=== PATIENT | male | born 1955 | race Caucasian/White ===

== ENCOUNTER 2019-08-13 21:14 | Inpatient (IN) ==
[2019-08-13 21:51] LABS: Basophils % 0.4 % (0.1-2.0); Eosinophils # 0.2 K/mm3 (0.0-0.4); Eosinophils % 1.8 % (0.1-12.0); Hematocrit 40.7 % (42.0-52.0); Lymphocytes # 1.1 K/mm3 (0.7-4.5); Lymphocytes % 12.8 % (10-50); Mean Corpuscular HGB Conc 29.5 g/dL (31.8-35.4); Mean Corpuscular Volume 94.4 fl (80-94); Mean Platelet Volume 8.8 fl (7.4-10.4); Monocytes # 0.5 K/mm3 (0.1-1.0); Monocytes % 5.6 % (1.7-9.3); Neutrophils # 6.6 K/mm3 (1.8-7.8); Neutrophils % 79.5 % (37.0-80.0); Platelet Count 164 K/mm3 (142-424); Red Blood Count 4.31 M/mm3 (4.60-6.20); Red Cell Distribution Width 14.7 % (11.5-17.5); White Blood Count 8.3 K/mm3 (4.8-10.8)
[2019-08-13 22:08] LABS: Albumin Level 2.9 gm/dL (3.4-5.0); Albumin/Globulin Ratio 0.7 (1.1-1.8); Anion Gap 14.1 mEq/L (5-15); Bilirubin,Total 0.5 mg/dL (0.2-1.0); Calcium 8.2 mg/dL (8.5-10.1); Globulin 4.4 gm/dl (1.3-3.2); Total Protein,Serum 7.3 gm/dL (6.4-8.2)
--- NOTE | 2019-08-13 23:05 | Emergency Department Note ---
ED Disposition Clinical Impression: Non-STEMI (non-ST elevated myocardial infarction), IDDM (insulin dependent diabetes mellitus) Hypertension Qualifiers: Hypertension type: essential hypertension Qualified Code(s): I10 - Essential (primary) hypertension Disposition: Admitted As Inpatient Condition on Discharge: Good - Critical Care Critical Care Time: No Attestation: On 08/13/19, the high probability of a clinically significant, sudden or life threatening deterioration of the following system(s) required my full and direct attention, intervention and personal management. The time I documented below is in addition to time spent performing reported procedures but includes the following listed in this critical care notation. Medical Decision Making - Medical Records Medical records reviewed: Yes: I reviewed the patient's medical records. - Jose Inquiry Pt receiving controlled substance: No Vital Signs: 08/13/19 21:25 08/13/19 22:05 08/14/19 00:25 Temperature 98.0 F Temperature Source Oral Pulse Rate 77 Pulse Rate [Right Radial] 73 71 Respiratory Rate 18 18 Blood Pressure [Right Arm] 166/83 H 160/84 H Blood Pressure Mean [Right Arm] 110 109 Blood Pressure Source [Right Arm] Automatic Cuff Blood Pressure Position [Right Arm] Sitting 02 Sat by Pulse Oximetry 97 98 Oxygen Delivery Method Room Air Room Air 08/14/19 00:46 08/14/19 01:13 Temperature Temperature Source Pulse Rate Pulse Rate [Right Radial] 71 69 Respiratory Rate 18 18 Blood Pressure [Right Arm] 161/86 H 156/81 H Blood Pressure Mean [Right Arm] 111 106 Blood Pressure Source [Right Arm] Automatic Cuff Automatic Cuff Blood Pressure Position [Right Arm] Sitting Sitting 02 Sat by Pulse Oximetry 97 96 Oxygen Delivery Method Room Air Room Air - Lab Data Lab results reviewed: Yes: I reviewed the patient's lab results. Lab Results 08/13/19 21:39: WBC 8.3, RBC 4.31 L, Hgb 12.0 L, Hct 40.7 L, MCV 94.4 H, MCH 27.8, MCHC 29.5 L, RDW 14.7, Plt Count 164, MPV 8.8, Neut % (Auto) 79.5, Lymph % (Auto) 12.8, [place] % (Auto) 5.6, Eos % (Auto) 1.8, Baso % (Auto) 0.4, Neut # (A uto) 6.6, Lymph # (Auto) 1.1, [place] # (Auto) 0.5, Eos # (Auto) 0.2, Baso # (Auto) 0.0 08/13/19 21:39: Sodium 139, Potassium 4.1, Chloride 103, Carbon Dioxide 26, Anion Gap 14.1, BUN 10, Creatinine 0.96, Estimated Creat Clear 74, Estimated GFR 79, Est GFR ( Amer) 95, Glucose 237 H, Calcium 8.2 L, Total Bilirubin 0.5, AST 50 H, ALT 52, Alkaline Phosphatase 112, Troponin I 0.23 H, Total Protein 7.3, Albumin 2.9 L, Globulin 4.4 H, Albumin/Globulin Ratio 0.7 L 08/13/19 21:39: Lactate 1.8 08/14/19 00:05: Troponin I 0.69 H Result diagrams: 08/13/19 21:39 08/13/19 21:39 Orders (Tests/Meds): ED MEDICATIONS Generic Name Dose Route Start Last Admin Trade Name Freq PRN Reason Stop Dose Admin Sodium Chloride 3 ml 08/13/19 21:30 Sodium Chloride 3% 15ml [facility] 09/12/19 21:29 ONCE PRN INDUCE SPUTUM COLLECTION Discontinued Medications Generic Name Dose Route Start Last Admin Trade Name Freq PRN Reason Stop Dose Admin Albuterol/Ipratropium 3 ml 08/13/19 21:30 08/13/19 22:05 Duoneb 3ml [facility] 08/13/19 21:31 3 ml ONCE ONE Administration Ioversol 70 ml 08/13/19 23:26 08/13/19 23:27 Rad-Optiray 350 100ml Vial IV 08/13/19 23:27 70 ml ONCE ONE Administration Protocol Methylprednisolone Sodium Succinate 125 mg 08/13/19 21:29 08/13/19 21:47 Solu-Medrol 125mg/2ml Vial IV 08/13/19 21:30 125 mg ONCE ONE Administration Nitroglycerin 1 gm 08/14/19 01:21 08/14/19 01:31 Nitroglycerin 1 Inch Oint Udp TD 08/14/19 01:22 1 gm ONCE ONE Administration Sodium Chloride 40 ml 08/13/19 23:26 08/13/19 23:27 Rad-Ns 50ml Vial IV 08/13/19 23:27 40 ml ONCE ONE Administration Sodium Chloride 10 ml 10/12/19 23:26 08/13/19 23:27 Rad-Saline Flush 10ml Syringe IV 08/13/19 23:27 10 ml ONCE ONE Administration ORDERS Category Date Time Status CT Chest w/PE protocol [CT angio chest] Stat Cat Scan 08/13/19 21:[address] sinus wo con Stat Cat Scan 08/13/19 22:59 Taken XR chest 2V Stat Exams 08/13/19 21:29 Taken Blood Culture Stat Micro 08/13/19 21:39 Received Sputum Culture & Gram Stain Stat Micro 08/13/19 21:30 Ordered - Radiology Data #1 Image(s): Chest Image Reviewed: Yes I reviewed the patient's radiology image Preliminary Findings: Abnormal (perihilar changes ) - CT Data CT Scan: Chest, Sinus Time Received: 00:[address] Reviewed: Yes: I have viewed the radiologist's interpretation Preliminary Findings: Abnormal (see report/no pul emboli) - ECG Data Tracing #1 Normal Sinus Rhythm: Yes Ischemic changes: non-specific ST-T wave changes - PANKAJ Score for Non-Stemi Age of Patient: 60-69 years old Heart Rate: 70-89 bpm Systolic Blood Pressure: 160-199 mmHg Serum Creatinine: 0.80-1.19 mg/dl CHF [place] Class: I-No CHF Other Risk Factors: Elevated Cardiac Enzymes or Biomarkers Non-Stemi Risk Score: 98 Resp/SOB HPI - General Chief Complaint: Shortness of Breath/Dyspnea Stated Complaint: SOA Time Seen by Provider: 08/13/19 23:04 Mode of Arrival: Ambulatory Source of Information: Patient, Medical Record Limitations: No Limitations Description of Symptoms (Recalled from ER Triage Doc. by RN): pt states that he has been having difficulty breathing and a cough/sinus problems x 4 months. pt states that he has taken 4 antibiotics with no relief. pt states that today he started "coughing up blood." - History of Present Illness pt with hx of cad with stents in 1998 and is diabetic who presents with neck pain with pain with exertion and at rest - worse over the last few days - MD Complaint: shortness of breath Onset (ago): day(s) Severity: moderate Consistency/Duration: intermittent Known history of: diabetes Associated symptoms: denies other symptoms Treatment prior to arrival: none - Related Data Home oxygen amount: none Home Medications Medication Instructions Recorded Confirmed Aspirin [Aspirin 325mg Tab] 325 mg PO DAILY 04/21/19 08/14/19 Gabapentin 600 mg PO TID 04/21/19 08/14/19 Glimepiride 1 tab PO BID 04/21/19 08/14/19 Hydrocodone/Acetaminophen 1 tab PO BID PRN 04/21/19 08/14/19 [Hydrocodone-Acetamin 7.5-325] Insulin Glargine,Hum.rec.anlog 30 unit SQ BID 04/21/19 08/14/19 [Basaglar Tawnyikpen U-100] Lisinopril [Lisinopril 5mg 5 mg PO DAILY 04/21/19 08/14/19 Tablet] Metoprolol Tartrate 50 mg PO BID 04/21/19 08/14/19 Omeprazole 20 mg PO DAILY 04/21/19 08/14/19 Allergies Allergy/AdvReac Type Severity Reaction Status Date / Time No Known Allergies Allergy Verified 08/13/19 21:29 - Well's Criteria PE Score Clinical signs/symptoms of DVT: No PE is #1 diagnosis or equally likely: Yes Heart rate is > 100: No Immobile at least 3 days, or surgery in past 4 wks: No Previously, obj. diagnosed PE or DVT: No Hemoptysis: Yes Malignancy w/Rx within 6mo, or palliative: No PE Score: 4 [facility] History - Hepatitis A Screen Drug use history?: No High risk sexual behaviors?: No History of sexually transmitted infection?: No Currently employed?: No Childcare worker?: No Do you have indoor plumbing?: Yes Do you have electricity?: Yes Attestation statement:: This patient has been screened for Hepatitis A risk factors. I have reviewed the patient's past medical history: Yes Medical History: Reports:: Diabetes Mellitus Type 2 - Social History Smoking Status: Former smoker Alcohol Intake: never Occupational Status: employed ROS Obtained: Yes All systems reviewed & no additional complaints - Constitutional Constitutional: Denies fever(s) - Eyes Eyes: Denies change in vision - ENT Ears, Nose, Mouth, and Throat: Reports as per HPI, Denies sore throat - Cardiovascular Cardiovascular: Reports chest pain, Reports dyspnea - Respiratory Respiratory: Yes cough, Yes coughing up blood - Gastrointestinal Gastrointestingal: Denies: abdominal pain - Genitourinary Male Genitourinary: Denies hematuria - Musculoskeletal Musculoskeletal: Denies joint pain - Integumentary/Breasts Skin/Breast: Denies rash - Neurologic Neurologic: Denies seizure-like activity Physical Exam - General General appearance: alert - Head Head exam: normocephalic - Eye Eye exam: Present: PERRL, EOMI. Absent: scleral icterus - ENT ENT exam: Present: mucous membranes dry - Neck Neck exam: Present: trachea midline - Respiratory Respiratory exam: Present: normal lung sounds bilaterally. Absent: respiratory distress - Cardiovascular Cardiovascular exam: Present: regular rate, systolic murmur, +S4 - Abdominal Exam Abdominal exam: Present: soft - Extremities Exam Extremities exam: Absent: calf tenderness - Neurological Exam Neurological exam: Present: alert, oriented X3, CN II-XII intact - Psychiatric Psychiatric exam: Present: normal affect - Skin Skin exam: Absent: rash
[2019-08-14 06:03] LABS: Basophils % 0.2 % (0.1-2.0); Eosinophils % 0.1 % (0.1-12.0); Hematocrit 36.6 % (42.0-52.0); Hemoglobin 10.9 g/dL (14.1-18.0); Lymphocytes # 0.6 K/mm3 (0.7-4.5); Lymphocytes % 9.8 % (10-50); Mean Corpuscular HGB Conc 29.7 g/dL (31.8-35.4); Mean Corpuscular Volume 93.4 fl (80-94); Mean Platelet Volume 8.8 fl (7.4-10.4); Monocytes # 0.1 K/mm3 (0.1-1.0); Monocytes % 2.2 % (1.7-9.3); Neutrophils # 5.5 K/mm3 (1.8-7.8); Neutrophils % 87.8 % (37.0-80.0); Platelet Count 149 K/mm3 (142-424); Red Blood Count 3.92 M/mm3 (4.60-6.20); Red Cell Distribution Width 14.6 % (11.5-17.5); White Blood Count 6.2 K/mm3 (4.8-10.8)
[2019-08-14 06:10] LABS: INR 1.16 (0.9-1.1)
[2019-08-14 06:24] LABS: Hypochromasia 1+; Lymphocytes % 8 % (10-50); Neutrophils % 86 % (42-76); Total Cells Counted 100
[2019-08-14 06:42] LABS: Anion Gap 17.4 mEq/L (5-15); Calcium 7.8 mg/dL (8.5-10.1); Chol/HDL Ratio 6.8 (1-3.5)
--- NOTE | 2019-08-14 08:46 | History & Physical Report ---
*Admission Date: 08/13/19 *Chief complaint: sob *History of present illness: this wm presented to the ed with episodes of neck pain which are most noted with exertion and also at rest - has iddm and hx of cad with stents in past - pt has been treated for bronchitis with no change in sx - he was noted to have nonspec ekg changes and pos enz in the ed - pt was admitted for eval [facility] History I have reviewed the patient's past medical history: Yes Medical History: Reports:: Diabetes Mellitus Type 2, Hyperlipidemia, Myocardial Infarction *Have you ever received a pneumonia vaccine?: No *Have you received a flu vaccine this season?: No Other Medical History: Reports: Cataracts Other Surgeries: Yes: Coronary Stent (3 STENTS PLACED IN 1998) - *Social History Educational Level: Attended High School Smoking Status: Former smoker Tobacco Type: cigarettes # Packs/Day (cigarettes): 4 Alcohol Intake: former Alcohol Intake Frequency:: a few times a week *Occupational Status:: employed Housing: house *Travel in the last 8 weeks: None Family Hx:: Cancer, Coronary Artery Disease, Diabetes, Heart Attack, Hyperlipidemia, Hypertension Review of Systems - Review of Systems Review of systems:: pertinent systems reviewed and negative unless documented below - Constitutional Denies fever(s) - Eyes Denies change in vision - ENT Denies sore throat - *Cardiovascular Reports other (neck pain ), Denies chest pain at rest - *Respiratory Denies cough - *Gastrointestinal Denies abdominal pain - *Genitourinary Denies blood in urine - *Musculoskeletal Denies joint pain - Integumentary/Breasts Denies rash - *Neurologic Denies localized weakness, Denies seizure-like activity - Psychiatric Denies anxiety Meds Home Medications Medication Instructions Recorded Confirmed Type Aspirin [Aspirin 325mg Tab] 325 mg PO DAILY 04/21/19 08/14/19 History Gabapentin 600 mg PO TID 04/21/19 08/14/19 History Glimepiride 1 tab PO BID 04/21/19 08/14/19 History Hydrocodone/Acetaminophen 1 tab PO BID PRN 04/21/19 08/14/19 History [Hydrocodone-Acetamin 7.5-325] Insulin Glargine,Hum.rec.anlog 40 unit SQ BID 04/21/19 08/14/19 History [Basaglar Kwikpen U-100] Lisinopril [Lisinopril 5mg 5 mg PO DAILY 04/21/19 08/14/19 History Tablet] Metoprolol Tartrate 50 mg PO BID 04/21/19 08/14/19 History Omeprazole 20 mg PO DAILY 04/21/19 08/14/19 History Allergies Allergy/AdvReac Type Severity Reaction Status Date / Time No Known Allergies Allergy Verified 08/13/19 21:29 Exam Vital signs and Labs for Last 24 Hours: Temp Pulse Resp BP Pulse Ox 98.0 F 78 17 135/71 98 08/14/19 07:43 08/14/19 07:43 08/14/19 07:43 08/14/19 07:43 08/14/19 07:43 Laboratory Results - last 24 hr 08/13/19 21:39: WBC 8.3, RBC 4.31 L, Hgb 12.0 L, Hct 40.7 L, MCV 94.4 H, MCH 27.8, MCHC 29.5 L, RDW 14.7, Plt Count 164, MPV 8.8, Neut % (Auto) 79.5, Lymph % (Auto) 12.8, [place] % (Auto) 5.6, Eos % (Auto) 1.8, Baso % (Auto) 0.4, Neut # (Auto) 6.6, Lymph # (Auto) 1.1, [place] # (Auto) 0.5, Eos # (Auto) 0.2, Baso # (Auto) 0.0 08/13/19 21:39: Sodium 139, Potassium 4.1, Chloride 103, Carbon Dioxide 26, Anion Gap 14.1, BUN 10, Creatinine 0.96, Estimated Creat Clear 74, Estimated GFR 79, Est GFR ( Amer) 95, Glucose 237 H, Calcium 8.2 L, Total Bilirubin 0.5, AST 50 H, ALT 52, Alkaline Phosphatase 112, Troponin I 0.23 H, Total Protein 7.3, Albumin 2.9 L, Globulin 4.4 H, Albumin/Globulin Ratio 0.7 L 08/13/19 21:39: Lactate 1.8 08/14/19 00:05: Troponin I 0.69 H 08/14/19 05:45: WBC 6.2 D, RBC 3.92 L, Hgb 10.9 L, Hct 36.6 L, MCV 93.4, MCH 27.8, MCHC 29.7 L, RDW 14.6, Plt Count 149, MPV 8.8, Neut % (Auto) 87.8 H, Lymph % (Auto) 9.8 L, [place] % (Auto) 2.2, Eos % (Auto) 0.1, Baso % (Auto) 0.2, Neut # (Auto) 5.5, Lymph # (Auto) 0.6 L, [place] # (Auto) 0.1, Eos # (Auto) 0.0, Baso # (Auto) 0.0, Total Counted 100, Neutrophils % (Manual) 86 H, Band Neutrophils % 6.0, Lymphocytes % (Manual) 8 L, Platelet Estimate Normal, Hypochromasia 1+ 08/14/19 05:45: PT 12.0 H, INR 1.16 H 08/14/19 05:45: Sodium 140, Potassium 4.4, Chloride 104, Carbon Dioxide 23, Anion Gap 17.4 H, BUN 12, Creatinine 1.07, Estimated Creat Clear 80, Estimated GFR 69, Est GFR ( Amer) 84, Glucose 265 H, Calcium 7.8 L, Magnesium 0.8 L , Troponin I 0.80 H, Triglycerides 65, Cholesterol 197, LDL Cholesterol 155 H, VLDL Cholesterol 13, HDL Cholesterol 29, Cholesterol/HDL Ratio 6.8 H 08/14/19 06:23: POC Glucose 247 H I & O for Last 24 hours: Intake & Output 08/11/19 08/12/19 08/13/19 08/14/19 11:59 11:59 11:59 11:59 Intake Total 239 / 239 Output Total 350 / 350 Balance -111 / -111 Weight 182 lb 3 oz - Constitutional no acute distress - *Routine HEENT Exam Head: Present: normocephalic Eye: Present: EOMI, PERRL ENT: Present: mucous membranes dry - *Routine Neck Exam Present: supple. Absent: JVD - *Routine Respiratory Exam Present: CTA bilaterally - *Routine Cardiovascular Exam Present: RRR, murmur - *Routine Abdominal Exam Present: soft - *Routine Extremities Exam Absent: calf tenderness - *Routine Skin Exam Present: intact - *Routine Neurological Exam Present: alert, oriented X3, CN II-XII intact - Routine Psychiatric Exam Present: normal affect Assessment and Plan (1) Non-STEMI (non-ST elevated myocardial infarction) Current visit: Yes Status: Acute Category: Medical Code(s): I21.4 - Non-ST elevation (NSTEMI) myocardial infarction (2) IDDM (insulin dependent diabetes mellitus) Current visit: Yes Status: Acute Category: Medical Code(s): E11.9 - Type 2 diabetes mellitus without complications; Z79.4 - long-term (current) use of insulin (3) Hypertension Current visit: Yes Status: Acute Qualifiers: Hypertension type: essential hypertension Qualified Code(s): I10 - Essential (primary) hypertension Category: Medical Code(s): I10 - Essential (primary) hypertension (4) Hyperlipidemia Current visit: Yes Status: Acute Qualifiers: Hyperlipidemia type: unspecified Qualified Code(s): E78.5 - Hyperlipidemia, unspecified Category: Medical Code(s): E78.5 - Hyperlipidemia, unspecified
--- NOTE | 2019-08-14 12:33 | Pharmacy Consult Notes ---
[facility] Pharmacy VTE Monitoring - Patient Demographics Admission date: 08/14/19 Report Date: 08/14/19 Time: 12:33 Allergies/Adverse Reactions: Patient Allergies No Known Allergies Allergy (Verified 08/13/19 21:29) Height: 1.75 m Weight: 82.639 kg Patient Problems: Current Active Problems Non-STEMI (non-ST elevated myocardial infarction) (Acute) IDDM (insulin dependent diabetes mellitus) (Acute) Hypertension (Acute) Hyperlipidemia (Acute) - VTE Risk Labs: VTE Related Lab Results Hgb 10.9 g/dL (14.1-18.0) L 08/14/19 05:45 Hct 36.6 % (42.0-52.0) L 08/14/19 05:45 Plt Count 149 K/mm3 (142-424) 08/14/19 05:45 PT 12.0 seconds (9.4-11.8) H 08/14/19 05:45 INR 1.16 (0.9-1.1) H 08/14/19 05:45 BUN 12 mg/dL (7-18) 08/14/19 05:45 Creatinine 1.07 mg/dL (0.70-1.30) 08/14/19 05:45 Estimated Creat Clear 80 mL/min (50-200) 08/14/19 05:45 VTE Score: 4 VTE Risk Level: Low Risk - Prophylaxis VTE Prophylaxis Ordered?: Yes Types of VTE Prophylaxis: TEDS Knee High Location of Applied Device: Bilateral Lower Extremeties
--- NOTE | 2019-08-15 07:37 | Consult Report ---
History of Present Illness Consult date: 08/15/19 Requesting physician: Sergey Bobo Consult reason: chest pain Chief complaint: chest pain Additional Medical History:: 1. Diabetes mellitus, type II, treated for about 5 years A. Insulin treated for about 2 years B. 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 Remote history of tobacco use, discontinued 1998 3. Coronary artery disease A. Myocardial infarction with subsequent coronary stenting x3, 1998, [facility] B. NSTEMI, 08/2019, with rate related IVCD 4. Hypertension 5. Hyperlipidemia History of present illness: 64-year-old white male with insulin-dependent diabetes mellitus and known coronary artery disease with previous [place] and coronary stenting in 1998 presented to the emergency department for substernal and neck discomfort that was unresolved with rest. Transported to ER by private vehicle. Patient was evaluated with initial troponin elevated but EKG with no acute ST segment changes. Patient was diagnosed with non-ST elevation [place] and admitted for further evaluation. Symptoms resolved overnight. Patient relates same symptoms with exertion that have resolved with rest over the last 4 months. On the day of admission symptoms onset it would not go away. [facility] History Medical History: Reports:: Diabetes Mellitus Type 2, Hyperlipidemia, Myocardial Infarction *Have you ever received a pneumonia vaccine?: No *Have you received a flu vaccine this season?: No Other Medical History: Reports: Cataracts Other Surgeries: Yes: Coronary Stent (3 STENTS PLACED IN 1998) - *Social History Educational Level: Attended High School Smoking Status: Former smoker Tobacco Type: cigarettes # Packs/Day (cigarettes): 4 Alcohol Intake: former Alcohol Intake Frequency:: a few times a week *Occupational Status:: employed Housing: house *Travel in the last 8 weeks: None Family Hx:: Cancer, Coronary Artery Disease, Diabetes, Heart Attack, Hyperlipidemia, Hypertension Meds Home Medications Medication Instructions Recorded Confirmed Type Aspirin [Aspirin 325mg Tab] 325 mg PO DAILY 04/21/19 08/14/19 History Gabapentin 600 mg PO TID 04/21/19 08/14/19 History Glimepiride 1 tab PO BID 04/21/19 08/14/19 History Hydrocodone/Acetaminophen 1 tab PO BID PRN 04/21/19 08/14/19 History [Hydrocodone-Acetamin 7.5-325] Insulin Glargine,Hum.rec.anlog 40 unit SQ BID 04/21/19 08/14/19 History [Franc Starr U-100] Lisinopril [Lisinopril 5mg 5 mg PO DAILY 04/21/19 08/14/19 History Tablet] Metoprolol Tartrate 50 mg PO BID 04/21/19 08/14/19 History Omeprazole 20 mg PO BID 04/21/19 08/14/19 History Cetirizine HCl 10 mg PO DAILY 08/14/19 08/14/19 History Metformin HCl [Metformin 1000mg 1,000 mg PO BID 08/14/19 08/14/19 History Tablets] Allergies Allergy/AdvReac Type Severity Reaction Status Date / Time No Known Allergies Allergy Verified 08/13/19 21:29 Review of Systems - *Cardiovascular Reports chest pain, Denies shortness of breath - *Respiratory Reports shortness of breath with activity, Denies cough, Denies shortness of breath - *Gastrointestinal Denies loose stools, Denies nausea, Denies vomiting - *Genitourinary Denies blood in urine - *Musculoskeletal Denies joint pain, Denies back pain - *Neurologic Denies localized weakness, Denies seizure-like activity Exam Vital signs and Labs for Last 24 Hours: Temp Pulse Resp BP Pulse Ox 97.9 F 66 16 119/62 97 08/15/19 04:00 08/15/19 04:00 08/15/19 04:00 08/15/19 04:00 08/15/19 04:00 Laboratory Results - last 24 hr 08/14/19 10:55: POC Glucose 362 H* 08/14/19 16:37: POC Glucose 259 H 08/14/19 20:23: POC Glucose 283 H 08/15/19 05:46: POC Glucose 212 H I & O for Last 24 hours: Intake & Output 08/12/19 08/13/19 08/14/19 08/15/19 11:59 11:59 11:59 11:59 Intake Total 239 / 239 1669 / 1669 Output Total 700 / 700 900 / 900 Balance -461 / -461 769 / 769 Weight 182 lb 3 oz 182 lb 3.005 oz - *Routine HEENT Exam Head: Present: normocephalic Eye: Present: EOMI, PERRL ENT: Present: mucous membranes moist - *Routine Neck Exam Present: supple. Absent: JVD, carotid bruit - *Routine Respiratory Exam Present: wheezes. Absent: accessory muscle use, rales, rhonchi - *Routine Cardiovascular Exam Present: RRR. Absent: murmur, gallop, rubs - *Routine Abdominal Exam Present: soft. Absent: tenderness, distended, guarding - *Routine Extremities Exam Present: edema. 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 Recurrent chest pain with exertion in a patient with known coronary artery disease and insulin-dependent diabetes mellitus. Positive enzymes with no acute ST segment changes on EKG, consistent with non-ST elevation [place]. Patient will need left heart catheterization. Risks, benefits and procedure explained to the patient who agrees to proceed. Continue aspirin and Brilinta, KIMBERLY inhibitor, metoprolol along with statin. 2. Echocardiogram today preliminary shows preserved ejection fraction. 3. Further recommendations to follow pending above results. 4. Rate related IVCD/LBBB pattern
--- NOTE | 2019-08-15 13:17 | Discharge Summary ---
General - General Admission date:: 08/14/19 Discharge date: 08/15/19 HPI HPI: this wm presented to the ed with episodes of neck pain which are most noted with exertion and also at rest - has iddm and hx of cad with stents in past - pt has been treated for bronchitis with no change in sx - he was noted to have nonspec ekg changes and pos enz in the ed - pt was admitted for eval Hospital Course Hospital Course: pt was seen in the ed with neck pain which was anginal in nature and had abn troponin - he was seen by card - 1. Diabetes mellitus, type II, treated for about 5 years A. Insulin treated for about 2 years B. 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 Remote history of tobacco use, discontinued 1998 3. Coronary artery disease A. Myocardial infarction with subsequent coronary stenting x3, 1998, [facility] B. NSTEMI, 08/2019, with rate related IVCD 4. Hypertension 5. Hyperlipidemia 64-year-old white male with insulin-dependent diabetes mellitus and known coronary artery disease with previous RI and coronary stenting in 1998 presented to the emergency department for substernal and neck discomfort that was unresolved with rest. Transported to ER by private vehicle. Patient was evaluated with initial troponin elevated but EKG with no acute ST segment changes. Patient was diagnosed with non-ST elevation RI and admitted for further evaluation. Symptoms resolved overnight. Patient relates same symptoms with exertion that have resolved with rest over the last 4 months. On the day of admission symptoms onset it would not go away. Recurrent chest pain with exertion in a patient with known coronary artery disease and insulin-dependent diabetes mellitus. Positive enzymes with no acute ST segment changes on EKG, consistent with non-ST elevation RI. Patient will need left heart catheterization. Risks, benefits and procedure explained to the patient who agrees to proceed. Continue aspirin and Brilinta, KIMBERLY inhibitor, metoprolol along with statin. 2. Echocardiogram today preliminary shows preserved ejection fraction. 3. Further recommendations to follow pending above results. 4. Rate related IVCD/LBBB patten pt was stable and had heart cathhe left main artery Has an ostial 20% stenosis and a distal 60% stenosis The left anterior descending artery Has an ostial 70% stenosis followed by a proximal eccentric 50% stenosis followed by mid vessel 70 to 80% stenosis. The circumflex artery Gives rise to a medium sized ramus intermedius which is free of disease. The first obtuse marginal artery is a small to medium 1.5 mm vessel and has a proximal 90% stenosis The right coronary artery Is a dominant vessel and has stents throughout the proximal mid and distal segment. There is severe 90% in-stent restenosis followed by additional mid vessel 80% complex diffuse in-stent restenosis. A large posterior descending artery has a proximal 80% eccentric stenosis. 2 additional marginal branches are present. The posterior lateral has a 70% and a 1.5 mm vessel. The VALENZUELA ventriculogram reveals Normal 65% The left ventricular end-diastolic pressure 20 mmHg IMPRESSION Severe three-vessel coronary artery disease as described above Normal ejection fraction Mildly elevated LVEDP PLAN 1. Patient requires surgical revascularization 2. Aggressive risk factor modification 3. Avoidance of tobacco products 4. Transfer to [facility] for coronary artery bypass grafting this admission pt will be transferred to for cabg Objective Vital signs: Temp Pulse Resp BP Pulse Ox 98 F 61 20 124/69 96 08/15/19 12:58 08/15/19 12:58 08/15/19 12:58 08/15/19 12:58 08/15/19 12:58 no acute distress - *Routine HEENT Exam Head: Present: normocephalic Eye: Present: EOMI, PERRL ENT: Present: mucous membranes dry - *Routine Neck Exam Present: supple - *Routine Respiratory Exam Present: CTA bilaterally - *Routine Cardiovascular Exam Present: RRR, murmur - *Routine Abdominal Exam Present: soft - *Routine Extremities Exam Present: full ROM - *Routine Skin Exam Present: intact - *Routine Neurological Exam Present: alert, oriented X3, CN II-XII intact - Routine Psychiatric Exam Present: normal affect Results Labs on day of discharge: Labs from last 24 hours 08/15/19 08/15/19 08/14/19 11:37 05:46 20:23 POC Glucose 130 H 212 H 283 H 08/14/19 16:37 POC Glucose 259 H DS: Diagnosis - Discharge Diagnosis (1) Non-STEMI (non-ST elevated myocardial infarction) Status: Acute (2) IDDM (insulin dependent diabetes mellitus) Status: Acute (3) Hypertension Status: Acute (4) Hyperlipidemia Status: Acute (5) CAD, multiple vessel Status: Acute Discharge Plan - Patient Discharge Instructions ACTIVITY: Continue current activity DIET: continue same diet - Follow up Plan Disposition: Xfer Short-Term Hosp Prescriptions/Medication Reconciliation: Discontinued Hydrocodone/Acetaminophen [Hydrocodone-Acetamin 7.5-325] 1 tab PO BID PRN PRN Reason: PAIN Glimepiride 1 tab PO BID Lisinopril [Lisinopril 5mg Tablet] 5 mg PO DAILY Omeprazole 20 mg PO BID Aspirin [Aspirin 325mg Tab] 325 mg PO DAILY Insulin Glargine,Hum.rec.anlog [Franc Starr U-100] 40 unit SQ BID Metformin HCl [Metformin 1000mg Tablets] 1,000 mg PO BID Cetirizine HCl 10 mg PO DAILY Gabapentin 600 mg PO TID Metoprolol Tartrate 50 mg PO BID - Problem Reconciliation Problems Reviewed?: Yes
--- NOTE | 2019-08-15 17:27 | Electrocardiograph Report ---
APPROVED REPORT Exam: Resting ECG HR:78 bpm ECG Measurements Heart Rate 78 AXES MS 182 P 33 QRSd 90 QRS 78 QT 404 T-82 QTc 460 <Conclusion> Normal sinus rhythm ST & T wave abnormality, consider lateral ischemia Prolonged QT Abnormal ECG Electronically signed by : Suresh Caruso, 08/15/2019 17:26:41
--- NOTE | 2019-08-15 17:29 | Electrocardiograph Report ---
APPROVED REPORT Exam: Resting ECG HR:68 bpm ECG Measurements Heart Rate 68 AXES OR 156 P QRSd 82 QRS 78 QT 388 T-44 QTc 412 <Conclusion> Normal sinus rhythm ST & T wave abnormality, consider Inferolateral ischemia Abnormal ECG Electronically signed by : Suresh Caruso, 08/15/2019 17:28:44
--- NOTE | 2019-08-15 21:15 | Cardiology Report ---
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 93.30 (40-130 cm/s)MV A Velocity 32.10 (40-130 cm/s) E/A Ratio 2.90 Pulmonary Valve PA Accel Time 155.00 (>120 msec) Tricuspid Valve TR P. Nvcfadci107.00 cm/sRAP Estimate 10.00 mmHg RVSP 40.00 mmHg Left Ventricle Left atrium is mildly enlarged, left ventricle is normal size, mild concentric left ventricular hypertrophy, visually estimated ejection fraction 50%, there is moderate hypokinesis involving the inferior basal wall. Diastolic parameters are inconclusive. Right Ventricle Right atrium and right ventricular mildly enlarged with normal contractility. Aortic Valve Aortic valve is thickened and calcified, leaflet continue to display good mobility, there is no aortic stenosis or aortic insufficiency. Mitral Valve Mitral valve leaflets are minimally thickened, there is no mitral stenosis, there is moderate mitral regurgitation. Tricuspid Valve Tricuspid valve is grossly normal, there is mild tricuspid regurgitation, calculated right ventricular systolic pressure is 45 mmHg which is moderately elevated. Pulmonic Valve Pulmonic valve is poorly visualized. Great Vessels Aortic root is normal size. Pericardium No significant pericardial effusion. Conclusion 1. Mildly enlarged left atrium, normal left ventricular size, mild concentric left ventricular hypertrophy, visually estimated ejection fraction of 50% with segmental wall motion abnormality described above, diastolic parameters are inconclusive. 2. Thickened and calcified aortic valve without aortic stenosis aortic insufficiency. 3. Mildly enlarged right ventricle with normal contractility. 4. Moderate mitral and mild tricuspid regurgitation, calculated right ventricular systolic pressure is 45 mmHg consistent with moderately elevated right ventricular systolic pressure. 5. No significant pericardial effusion noted. Electronically signed by : Jose Ramon Keenan, 08/15/2019 21:15:41
[2019-08-16 07:18] LABS: Basophils % 0.4 % (0.1-2.0); Eosinophils # 0.2 K/mm3 (0.0-0.4); Eosinophils % 2.9 % (0.1-12.0); Hematocrit 36.9 % (42.0-52.0); Lymphocytes # 1.4 K/mm3 (0.7-4.5); Lymphocytes % 19.1 % (10-50); Mean Corpuscular HGB Conc 29.7 g/dL (31.8-35.4); Mean Corpuscular Volume 93.1 fl (80-94); Mean Platelet Volume 8.8 fl (7.4-10.4); Monocytes # 0.5 K/mm3 (0.1-1.0); Monocytes % 6.6 % (1.7-9.3); Neutrophils # 5.1 K/mm3 (1.8-7.8); Neutrophils % 70.9 % (37.0-80.0); Platelet Count 166 K/mm3 (142-424); Red Blood Count 3.96 M/mm3 (4.60-6.20); Red Cell Distribution Width 14.7 % (11.5-17.5); White Blood Count 7.2 K/mm3 (4.8-10.8)
[2019-08-16 07:26] LABS: Anion Gap 11.4 mEq/L (5-15); Calcium 8.2 mg/dL (8.5-10.1)
--- NOTE | 2019-08-16 08:12 | Progress Note ---
Subjective Date: 08/16/19 Time: 08:09 Principal diagnosis: NSTEMI Interval history: 64-year-old white male in bedside chair in no acute distress. Denies any chest pain, pressure tightness overnight. Waiting for transfer to for coronary artery bypass grafting. Exam Vital signs and Labs for Last 24 Hours: Temp Pulse Resp BP Pulse Ox 97.8 F 68 17 147/80 H 97 08/16/19 04:00 08/16/19 04:00 08/16/19 04:00 08/16/19 04:00 08/16/19 04:00 Laboratory Results - last 24 hr 08/15/19 11:37: POC Glucose 130 H 08/15/19 20:07: POC Glucose 308 H* 08/16/19 05:59: POC Glucose 233 H 08/16/19 06:15: WBC 7.2, RBC 3.96 L, Hgb 11.0 L, Hct 36.9 L, MCV 93.1, MCH 27.7, MCHC 29.7 L, RDW 14.7, Plt Count 166, MPV 8.8, Neut % (Auto) 70.9, Lymph % (Auto) 19.1, [place] % (Auto) 6.6, Eos % (Auto) 2.9, Baso % (Auto) 0.4, Neut # (Auto) 5.1, Lymph # (Auto) 1.4, [place] # (Auto) 0.5, Eos # (Auto) 0.2, Baso # (Auto) 0.0 08/16/19 06:15: Sodium 139, Potassium 4.4, Chloride 106, Carbon Dioxide 26, Anion Gap 11.4, BUN 19 H D, Creatinine 0.87, Estimated Creat Clear 90, Estimated GFR 88, Est GFR ( Amer) 107 D, Glucose 241 H, Calcium 8.2 L I & O for Last 24 hours: Intake & Output 08/13/19 08/14/19 08/15/19 08/16/19 11:59 11:59 11:59 11:59 Intake Total 239 / 239 2028 480 / 480 Output Total 700 / 700 900 / 900 2550 / 2550 Balance -461 / -461 1129 / 1129 -2069 / -2069 Weight 182 lb 3 oz 182 lb 3.005 oz 191 lb 3.005 oz Microbiology Reports for the Last 24 Hours: Microbiology 08/13/19 21:39 Blood Blood Culture - Preliminary NO GROWTH AFTER 48 HOURS 08/13/19 21:39 Blood Blood Culture - Preliminary NO GROWTH AFTER 48 HOURS - *Routine HEENT Exam Head: Present: normocephalic Eye: Present: EOMI, PERRL ENT: Present: mucous membranes moist - *Routine Respiratory Exam Present: CTA bilaterally. Absent: accessory muscle use, rales, rhonchi, wheezes - *Routine Cardiovascular Exam Present: RRR. Absent: murmur, gallop, rubs - *Routine Extremities Exam Absent: edema, calf tenderness - *Routine Neurological Exam Present: alert, oriented X3, moving all extremities Progress Note: A&P (1) Non-STEMI (non-ST elevated myocardial infarction) Status: Acute Current Visit: Yes (2) IDDM (insulin dependent diabetes mellitus) Status: Acute Current Visit: Yes (3) Hypertension Status: Acute Current Visit: Yes (4) Hyperlipidemia Status: Acute Current Visit: Yes (5) CAD, multiple vessel Status: Acute Current Visit: Yes Assessment and Plan for All Diagnoses:: 1. Transfer to for bypass pending at this time. 2. We will discontinue Brilinta 3. Continue aspirin, statin, lisinopril and metoprolol.
--- NOTE | 2019-08-16 08:52 | Progress Note ---
Internal Medicine - PN: Subj *Date: 08/16/19 *Time: 08:45 Interval history: no changes over night waiting for bed at . Exam Vital signs and Labs for Last 24 Hours: Temp Pulse Resp BP Pulse Ox 97.8 F 68 17 147/80 H 97 08/16/19 04:00 08/16/19 04:00 08/16/19 04:00 08/16/19 04:00 08/16/19 04:00 Laboratory Results - last 24 hr 08/15/19 11:37: POC Glucose 130 H 08/15/19 20:07: POC Glucose 308 H* 08/16/19 05:59: POC Glucose 233 H 08/16/19 06:15: WBC 7.2, RBC 3.96 L, Hgb 11.0 L, Hct 36.9 L, MCV 93.1, MCH 27.7, MCHC 29.7 L, RDW 14.7, Plt Count 166, MPV 8.8, Neut % (Auto) 70.9, Lymph % (Auto) 19.1, [place] % (Auto) 6.6, Eos % (Auto) 2.9, Baso % (Auto) 0.4, Neut # (Auto) 5.1, Lymph # (Auto) 1.4, [place] # (Auto) 0.5, Eos # (Auto) 0.2, Baso # (Auto) 0.0 08/16/19 06:15: Sodium 139, Potassium 4.4, Chloride 106, Carbon Dioxide 26, Anion Gap 11.4, BUN 19 H D, Creatinine 0.87, Estimated Creat Clear 90, Estimated GFR 88, Est GFR ( Amer) 107 D, Glucose 241 H, Calcium 8.2 L I & O for Last 24 hours: Intake & Output 08/13/19 08/14/19 08/15/19 08/16/19 11:59 11:59 11:59 11:59 Intake Total 239 / 239 2028 / 2028 1380 / 1380 Output Total 700 / 700 900 / 900 2550 / 2550 Balance -461 / -461 1129 / 1129 -1170 / -1170 Weight 182 lb 3 oz 182 lb 3.005 oz 191 lb 3.005 oz Microbiology Reports for the Last 24 Hours: Microbiology 08/13/19 21:39 Blood Blood Culture - Preliminary NO GROWTH AFTER 48 HOURS 08/13/19 21:39 Blood Blood Culture - Preliminary NO GROWTH AFTER 48 HOURS - Constitutional no acute distress - *Routine HEENT Exam Head: Present: normocephalic Eye: Present: PERRL ENT: Present: mucous membranes moist - *Routine Neck Exam Present: supple. Absent: lymphadenopathy - *Routine Respiratory Exam Present: CTA bilaterally - *Routine Cardiovascular Exam Present: RRR - *Routine Abdominal Exam Present: soft, normoactive bowel sounds. Absent: tenderness - *Routine Extremities Exam Present: full ROM, pulses intact. Absent: cyanosis, clubbing, edema - *Routine Skin Exam Present: intact, warm. 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 (3) Hypertension Current visit: Yes Status: Acute Qualifiers: Hypertension type: essential hypertension Qualified Code(s): I10 - Essential (primary) hypertension Category: Medical Code(s): I10 - Essential (primary) hypertension (4) Hyperlipidemia Current visit: Yes Status: Acute Qualifiers: Hyperlipidemia type: unspecified Qualified Code(s): E78.5 - Hyperlipidemia, unspecified Category: Medical Code(s): E78.5 - Hyperlipidemia, unspecified (5) CAD, multiple vessel Current visit: Yes Status: Acute Category: Medical Code(s): I25.10 - Atherosclerotic heart disease of [place] coronary artery without angina pectoris - Assessment and plan all Dx Assessment and Plan for all problems:: Rounded with Dr. Bobo all orders per Jihan Waiting for bed at
--- NOTE | 2019-08-16 16:28 | Electrocardiograph Report ---
APPROVED REPORT Exam: Resting ECG HR:81 bpm ECG Measurements Heart Rate 81 AXES QRSd 156 QRS 65 QT 452 T244 QTc 525 <Conclusion> Sinus Rhythm LBBB Abnormal ECG Electronically signed by : Suresh Caruso, 08/16/2019 16:28:20
--- NOTE | 2019-08-17 11:05 | Progress Note ---
Subjective Date: 08/17/19 Time: 11:01 Principal diagnosis: NSTEMI Interval history: This is a 64-year-old gentleman who is awaiting transfer to [facility] for coronary artery bypass grafting. This morning he states he feels good. He states he still having a little pain in his lower back from lying in the bed. He denies any chest pain, pressure, shortness of breath or edema. He denies any fevers, chills, nausea, vomiting, diarrhea, PND or orthopnea. Exam Vital signs and Labs for Last 24 Hours: Temp Pulse Resp BP Pulse Ox 98.4 F 72 18 153/66 H 100 08/17/19 08:00 08/17/19 08:00 08/17/19 08:00 08/17/19 08:00 08/17/19 08:00 Laboratory Results - last 24 hr 08/16/19 11:36: POC Glucose 357 H* 08/16/19 16:12: POC Glucose 248 H 08/16/19 20:24: POC Glucose 297 H 08/17/19 05:20: POC Glucose 256 H I & O for Last 24 hours: Intake & Output 08/14/19 08/15/19 08/16/19 08/17/19 23:59 23:59 23:59 23:59 Intake Total 1758 / 1908 990 / 990 2340 / 2340 2623 / 2623 Output Total 1600 / 1600 2200 / 2200 1850 / 1850 1700 / 1700 Balance 158 / 308 -1210 / -1210 490 / 490 923 / 923 Weight 182 lb 3 oz 182 lb 3.005 oz 191 lb 3.005 oz 191 lb 3.005 oz Microbiology Reports for the Last 24 Hours: Microbiology 08/16/19 08:00 Sputum - Expectorated Sputum Gram Stain - Final 08/16/19 08:00 Sputum - Expectorated Sputum Sputum Culture - Preliminary Narrative: Telemetry strip shows sinus rhythm with a rate of 70. - Constitutional no acute distress, average body habitus - *Routine HEENT Exam Head: Present: normocephalic, atraumatic Eye: Present: EOMI, PERRL ENT: Present: mucous membranes moist - *Routine Neck Exam Present: supple, full ROM, normal carotid upstroke. Absent: JVD, carotid bruit, lymphadenopathy - *Routine Respiratory Exam Present: CTA bilaterally - *Routine Cardiovascular Exam Present: RRR, Normal S1, Normal S2. Absent: murmur - *Routine Abdominal Exam Present: soft, normoactive bowel sounds. Absent: tenderness, distended - *Routine Extremities Exam Present: full ROM, pulses intact, normal capillary refill. Absent: cyanosis, clubbing, edema - *Routine Skin Exam Present: intact, warm. Absent: erythema, rash - *Routine Neurological Exam Present: alert, oriented X3, CN II-XII intact. Absent: sensory deficit, motor deficit - Detailed Eye Exam Eyelids: Left normal inspection Progress Note: A&P (1) Non-STEMI (non-ST elevated myocardial infarction) Status: Acute Current Visit: Yes (2) IDDM (insulin dependent diabetes mellitus) Status: Acute Current Visit: Yes (3) Hypertension Status: Acute Current Visit: Yes (4) Hyperlipidemia Status: Acute Current Visit: Yes (5) CAD, multiple vessel Status: Acute Current Visit: Yes Assessment and Plan for All Diagnoses:: Plan: 1. The patient was in with a non-STEMI. The patient will left cardiac catheterization and found to have multivessel coronary artery disease requiring coronary artery bypass grafting. We are currently awaiting transfer to [facility] for coronary artery bypass grafting. The patient is set to transfer to [facility] today. has called and stated that they will have a bed today. 2. His blood pressure is a little elevated this morning but has been under good control overall. We will continue to monitor and make changes if needed to his blood pressure medications. 3. His LDL goal is less than 55. 4. Continue dual antiplatelet therapy with Brilinta and aspirin. 5. Continue statin, beta-regis and KIMBERLY inhibitor. 6. Further recommendations will be made pending the patient's response to treatment. As mentioned above we are awaiting transfer to [facility] for coronary artery bypass grafting. Thank you for the opportunity to help participate in the care of this patient.
== END 2019-08-17 18:06 | disposition short-term general hospital (02) | DRG 281 ==
LOC: 2ND 21:14 → ER 21:14 → 2ND 08-14 02:01 → OBSVTOIN 08-14 02:01
PROVIDERS: ADMIT Emergency Medicine; ATTEND Emergency Medicine
CPT/HCPCS: 36415; 70486; 71020; 71046; 71275; 80048; 80053; 80061; 82962; 83605; 83735; 84484; 85007; 85025; 85610; 87040; 87070; 87205; 93005; 93306; 93458; 96374; 99152; 99285; C1725; C1769; J1644; Q9967

== ENCOUNTER 2019-10-11 08:42 | Outpatient (RCR) | payer MEDICARE, OTHER, SELFPAY | END 2019-10-11 08:45 | disposition home or self-care (01) | LOC: PT 08:42 | DX: Z95.1 Presence of aortocoronary bypass graft (principal) ==

== ENCOUNTER 2020-01-29 21:18 | Inpatient (IN) ==
--- NOTE | 2020-01-29 21:46 | Emergency Department Note ---
ED Disposition Clinical Impression: Cellulitis and abscess of foot, Diabetic foot infection, IDDM (insulin dependent diabetes mellitus), S/P CABG x 6 Disposition: Admitted As Inpatient Condition on Discharge: Fair Referrals: Provider,Referral, [Primary Care Provider] - - Critical Care Critical Care Time: No Attestation: On 01/29/20, the high probability of a clinically significant, sudden or life threatening deterioration of the following system(s) required my full and direct attention, intervention and personal management. The time I documented below is in addition to time spent performing reported procedures but includes the following listed in this critical care notation. Medical Decision Making - Medical Records Medical records reviewed: Yes: I reviewed the patient's medical records. - Jose Inquiry Pt receiving controlled substance: No Vital Signs: 01/29/20 21:33 01/29/20 22:42 Pulse Rate [Right Brachial] 70 75 Respiratory Rate 16 16 Blood Pressure [Right Arm] 97/57 L 138/84 Blood Pressure Mean [Right Arm] 70 102 Blood Pressure Source [Right Arm] Automatic Cuff Automatic Cuff Blood Pressure Position [Right Arm] Sitting Sitting 02 Sat by Pulse Oximetry 99 97 Oxygen Delivery Method Room Air Room Air - Lab Data Lab results reviewed: Yes: I reviewed the patient's lab results. Lab Results 01/29/20 21:42: WBC 7.1, RBC 4.45 L, Hgb 10.8 L, Hct 34.9 L, MCV 78.4 L, MCH 24.2 L, MCHC 30.8 L, RDW 15.9, Plt Count 184, MPV 8.3, Neut % (Auto) 72.6, Lymph % (Auto) 19.6, [place] % (Auto) 5.6, Eos % (Auto) 1.9, Baso % (Auto) 0.3, Neut # (Auto) 5.1, Lymph # (Auto) 1.4, [place] # (Auto) 0.4, Eos # (Auto) 0.1, Baso # ( Auto) 0.0, ESR 96 H 01/29/20 21:42: Sodium 133 L, Potassium 4.6, Chloride 96 L, Carbon Dioxide 25, Anion Gap 16.6 H, BUN 16, Creatinine 0.90, Estimated Creat Clear 85, Estimated GFR 85, Est GFR ( Amer) 102, Glucose 392 H, Calcium 9.0, Total Bilirubin 0.4, AST 30, ALT 23, Alkaline Phosphatase 108, C-Reactive Protein 66.0 H, Total Protein 8.1, Albumin 4.0, Globulin 4.1 H, Albumin/Globulin Ratio 1.0 L 01/29/20 21:42: Lactate 1.9 Result diagrams: 01/29/20 21:42 01/29/20 21:42 Orders (Tests/Meds): ORDERS Category Date Time Status CT foot LT wo con Stat Cat Scan 01/29/20 21:46 Taken Foot XR left minimum 3 views [XR foot LT min 3V] Stat Exams 01/29/20 21:44 Taken Blood Culture Stat Micro 01/29/20 21:44 Received - Radiology Data #1 Image(s): Foot/Toes Image Reviewed: Yes I reviewed the patient's radiology image Preliminary Findings: Abnormal (sts changes ) - CT Data CT Scan: Other (lt foot ) Time Received: 23:[address] Reviewed: Yes: I have viewed the radiologist's interpretation Preliminary Findings: No Fracture Seen (no osteo) - Physician Consults Physician Consulted: kevin Reason -: Admission Skin/Abscess/FB HPI - General Chief complaint: Extremity Injury, Lower Stated complaint: Diabetic,problems w/Left foot toes Time Seen by Provider: 01/29/20 21:40 Mode of Arrival: Ambulatory Source of Information: Patient, Medical Record Limitations: No Limitations Description of Symptoms (Recalled from ER Triage Doc. by RN): Patient reports he got his left foot wet while working and is having tingling, pain and some necrosis in his great toe, long toe and middle toe. Patient is a known diabetic and has an appoinment with Dr. Acosta in [place] tomorrow morning. - History of Present Illness MD complaint: abscess/boil Onset (ago): day(s) Tetanus up to date: unsure Location: L foot Severity: moderate Context: other (diabetic ) Associated symptoms: denies other symptoms Treatments prior to arrival: none - Related Data Home Medications Medication Instructions Recorded Confirmed Aspirin [Aspirin EC 325mg Tab] 325 mg PO DAILY 08/17/19 01/29/20 Glimepiride 4 mg PO BID 08/17/19 01/29/20 Metformin HCl [Metformin 1000mg 1,000 mg PO BID 10/16/19 03/29/20 Tablets] Omeprazole 20 mg PO BID 08/17/19 01/29/20 lisinopriL [Lisinopril 5mg 5 mg PO DAILY 08/17/19 01/29/20 Tablet] atorvastatin 80 mg tablet 80 mg PO DAILY 10/10/19 01/29/20 furosemide 40 mg tablet 40 mg PO DAILY 10/10/19 01/29/20 insulin glargine 100 unit/mL (3 45 unit SQ DAILY ml 10/10/19 01/29/20 mL) subcutaneous pen metoprolol tartrate 25 mg tablet 25 mg PO TID tab 10/10/19 01/29/20 potassium chloride 20 mEq 20 meq PO DAILY 10/10/19 01/29/20 tablet,extended release Allergies Allergy/AdvReac Type Severity Reaction Status Date / Time No Known Allergies Allergy Verified 01/29/20 21:42 [facility] History - Hepatitis A Screen Drug use history?: No High risk sexual behaviors?: No History of sexually transmitted infection?: No Currently employed?: No Childcare worker?: No Do you have indoor plumbing?: Yes Do you have electricity?: Yes Attestation statement:: This patient has been screened for Hepatitis A risk factors. I have reviewed the patient's past medical history: Yes Medical History: Reports:: Diabetes Mellitus Type 2, Hyperlipidemia, Myocardial Infarction Other Medical History: Reports: Cataracts Other Surgeries: Yes: Coronary Stent (3 STENTS PLACED IN 1998) - Social History Smoking Status: Former smoker Tobacco Type: cigarettes # Packs/Day (cigarettes): 4 Alcohol Intake: never Alcohol Intake Frequency:: a few times a week Occupational Status: employed Housing: house Family Hx:: Cancer, Coronary Artery Disease, Diabetes, Heart Attack, Hyperlipide julito, Hypertension ROS Obtained: Yes All systems reviewed & no additional complaints - Constitutional Constitutional: Denies fever(s) - Eyes Eyes: Denies change in vision - ENT Ears, Nose, Mouth, and Throat: Denies sore throat - Cardiovascular Cardiovascular: Denies chest pain at rest, Denies dyspnea - Respiratory Respiratory: No cough - Gastrointestinal Gastrointestingal: Denies: abdominal pain - Genitourinary Male Genitourinary: Denies hematuria - Musculoskeletal Musculoskeletal: Reports joint pain, Denies joint swelling - Integumentary/Breasts Skin/Breast: Reports as per HPI, Reports other (cellulitis and skin changes lt foot ) - Neurologic Neurologic: Denies focal weakness Physical Exam - General General appearance: alert - Head Head exam: normocephalic - Eye Eye exam: Present: PERRL, EOMI. Absent: scleral icterus - ENT ENT exam: Present: mucous membranes moist - Neck Neck exam: Present: trachea midline - Respiratory Respiratory exam: Present: normal lung sounds bilaterally. Absent: respiratory distress - Cardiovascular Cardiovascular exam: Present: regular rate, systolic murmur - Abdominal Exam Abdominal exam: Present: soft - Expanded Lower Extremity Exam Left Foot/toe exam: Present: tenderness, swelling, erythema, other (sl odor ) - Neurological Exam Neurological exam: Present: alert, oriented X3, CN II-XII intact, other (dec sensaton to lt foot ) - Psychiatric Psychiatric exam: Present: normal affect - Skin Skin exam: Present: other (cellulitis early gangrene lt foot )
[2020-01-29 21:56] LABS: Basophils % 0.3 % (0.1-2.0); Eosinophils # 0.1 K/mm3 (0.0-0.4); Eosinophils % 1.9 % (0.1-12.0); Hematocrit 34.9 % (42.0-52.0); Hemoglobin 10.8 g/dL (14.1-18.0); Lymphocytes # 1.4 K/mm3 (0.7-4.5); Lymphocytes % 19.6 % (10-50); Mean Corpuscular HGB Conc 30.8 g/dL (31.8-35.4); Mean Corpuscular Volume 78.4 fl (80-94); Mean Platelet Volume 8.3 fl (7.4-10.4); Monocytes # 0.4 K/mm3 (0.1-1.0); Monocytes % 5.6 % (1.7-9.3); Neutrophils # 5.1 K/mm3 (1.8-7.8); Neutrophils % 72.6 % (37.0-80.0); Platelet Count 184 K/mm3 (142-424); Red Blood Count 4.45 M/mm3 (4.60-6.20); Red Cell Distribution Width 15.9 % (11.5-17.5); White Blood Count 7.1 K/mm3 (4.8-10.8)
[2020-01-29 22:03] LABS: Anion Gap 16.6 mEq/L (5-15); Bilirubin,Total 0.4 mg/dl (0.2-1.3); Globulin 4.1 g/dL (1.3-3.2); Total Protein,Serum 8.1 g/dl (6.3-8.2)
[2020-01-29 22:20] LABS: Erythrocyte Sedimentation Rate 96 mm/hr (0-20)
[2020-01-30 06:34] LABS: Basophils % 0.3 % (0.1-2.0); Eosinophils # 0.2 K/mm3 (0.0-0.4); Eosinophils % 2.7 % (0.1-12.0); Hematocrit 36.1 % (42.0-52.0); Hemoglobin 11.3 g/dL (14.1-18.0); Lymphocytes # 1.1 K/mm3 (0.7-4.5); Mean Corpuscular HGB Conc 31.3 g/dL (31.8-35.4); Mean Platelet Volume 8.9 fl (7.4-10.4); Monocytes # 0.4 K/mm3 (0.1-1.0); Monocytes % 5.8 % (1.7-9.3); Neutrophils # 5.2 K/mm3 (1.8-7.8); Neutrophils % 75.3 % (37.0-80.0); Platelet Count 201 K/mm3 (142-424); Red Blood Count 4.63 M/mm3 (4.60-6.20); Red Cell Distribution Width 16.1 % (11.5-17.5); White Blood Count 6.9 K/mm3 (4.8-10.8)
[2020-01-30 06:41] LABS: Anion Gap 13.5 mEq/L (5-15)
--- NOTE | 2020-01-30 07:28 | Pharmacy Consult Notes ---
[facility] Pharmacy VTE Monitoring - Patient Demographics Admission date: 01/30/20 Report Date: 01/30/20 Time: 07:27 Allergies/Adverse Reactions: Patient Allergies No Known Allergies Allergy (Verified 01/29/20 21:42) Height: 1.75 m Weight: 74.389 kg Patient Problems: Current Active Problems Cellulitis and abscess of foot (Acute) Diabetic foot infection (Acute) IDDM (insulin dependent diabetes mellitus) (Chronic) S/P CABG x 6 (Acute) - VTE Risk Labs: VTE Related Lab Results Hgb 11.3 g/dL (14.1-18.0) L 01/30/20 06:18 Hct 36.1 % (42.0-52.0) L 01/30/20 06:18 Plt Count 201 K/mm3 (142-424) 01/30/20 06:18 BUN 13 mg/dl (9-20) 01/30/20 06:18 Creatinine 0.70 mg/dl (0.66-1.25) D 01/30/20 06:18 Estimated Creat Clear 77 mL/min (50-200) 01/30/20 06:18 Was VTE Risk Assessment Performed: Yes VTE Score: 3 VTE Risk Level: Low Risk Clinical Trial Participant: No - Prophylaxis VTE Prophylaxis Ordered?: Yes Types of VTE Prophylaxis: TEDS Knee High
--- NOTE | 2020-01-30 07:37 | Pharmacy Consult Notes ---
- Pharmacy Consult Date: 01/30/20 Time: 07:36 Referring provider: DR. SOTO Reason for Consult:: VANCOMYCIN DOSING Allergies and ADEs:: Allergies Allergy/AdvReac Type Severity Reaction Status Date / Time No Known Allergies Allergy Verified 01/29/20 21:42 Home Medications:: Home Medications Medication Instructions Recorded Confirmed Type Aspirin [Aspirin EC 325mg Tab] 325 mg PO DAILY 08/17/19 01/30/20 History Glimepiride 4 mg PO BID 08/17/19 01/30/20 History Metformin HCl [Metformin 1000mg 1,000 mg PO BID 08/17/19 01/30/20 History Tablets] Omeprazole 20 mg PO BID 08/17/19 01/30/20 History lisinopriL [Lisinopril 5mg 5 mg PO DAILY 08/17/19 01/30/20 History Tablet] atorvastatin 80 mg tablet 80 mg PO DAILY 10/10/19 01/30/20 History furosemide 40 mg tablet 40 mg PO DAILY 10/10/19 01/30/20 History insulin glargine 100 unit/mL (3 45 unit SQ DAILY ml 10/10/19 01/30/20 History mL) subcutaneous pen metoprolol tartrate 25 mg tablet 25 mg PO BID tab 10/10/19 01/30/20 History potassium chloride 20 mEq 20 meq PO DAILY 10/10/19 01/30/20 History tablet,extended release Height: 1.75 m Weight: 74.389 kg Laboratory Results:: Laboratory Results - last 24 hr 01/29/20 21:42: WBC 7.1, RBC 4.45 L, Hgb 10.8 L, Hct 34.9 L, MCV 78.4 L, MCH 24.2 L, MCHC 30.8 L, RDW 15.9, Plt Count 184, MPV 8.3, Neut % (Auto) 72.6, Lymph % (Auto) 19.6, [place] % (Auto) 5.6, Eos % (Auto) 1.9, Baso % (Auto) 0.3, Neut # (Auto) 5.1, Lymph # (Auto) 1.4, [place] # (Auto) 0.4, Eos # (Auto) 0.1, Baso # (Auto) 0.0, ESR 96 H 01/29/20 21:42: Sodium 133 L, Potassium 4.6, Chloride 96 L, Carbon Dioxide 25, Anion Gap 16.6 H, BUN 16, Creatinine 0.90, Estimated Creat Clear 85, Estimated GFR 85, Est GFR ( Amer) 102, Glucose 392 H, Calcium 9.0, Total Bilirubin 0.4, AST 30, ALT 23, Alkaline Phosphatase 108, C-Reactive Protein 66.0 H, Total Protein 8.1, Albumin 4.0, Globulin 4.1 H, Albumin/Globulin Ratio 1.0 L 01/29/20 21:42: Lactate 1.9 01/30/20 05:26: POC Glucose 186 H 01/30/20 06:18: WBC 6.9, RBC 4.63, Hgb 11.3 L, Hct 36.1 L, MCV 78.0 L, MCH 24.4 L, MCHC 31.3 L, RDW 16.1, Plt Count 201, MPV 8.9, Neut % (Auto) 75.3, Lymph % (Auto) 16.0, [place] % (Auto) 5.8, Eos % (Auto) 2.7, Baso % (Auto) 0.3, Neut # (Auto) 5.2, Lymph # (Auto) 1.1, [place] # (Auto) 0.4, Eos # (Auto) 0.2, Baso # (Auto) 0.0 01/30/20 06:18: Sodium 139, Potassium 4.5, Chloride 103, Carbon Dioxide 27, Anion Gap 13.5, BUN 13, Creatinine 0.70 D, Estimated Creat Clear 77, Estimated GFR 113, Est GFR ( Amer) 137 D, Glucose 180 H D, Calcium 9.0 Medical History: Reports:: Diabetes Mellitus Type 2, Hyperlipidemia, Hypertension, Myocardial Infarction Assessment and Plan - Assessment and plan all Dx Assessment and Plan for all problems:: BASED ON PATIENT FACTORS, RECOMMEND VANCOMYCIN 1500 MG IV Q12H. PHARMACY WILL FOLLOW DAILY AND ADJUST APPROPRIATE.
--- NOTE | 2020-01-30 08:36 | History & Physical Report ---
*Admission Date: 01/30/20 <BraulioAdelaide 01/30/20 08:39> *Chief complaint: Infection of the left foot. <RamseyAdelaide 01/30/20 08:39> *History of present illness: Mr. Eaton is a 64-year-old male with a history of coronary artery disease and diabetes mellitus who presented to [facility] emergency room after noticing bloody drainage from the left foot. He states he began having problems last week when his foot got wet at work. He noticed blisters and began to put steroid cream on it. He said the nail on the second toe did come off. He denies having any pain and no fever. He has noticed some edema of the leg. Patient receives his health care in [place]. 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 He has had a recent bypass surgery about 3 to 4 months ago with previous stents years ago. He states his blood sugars fluctuate. This a.m. he is comfortable. He has slept. He states his leg/foot does not hurt. He is n.p.o. Dr. Corado is supposed to see him this morning. <BraulioAdelaide 01/30/20 08:47> [facility] History Medical History: Reports:: Atherosclerotic Heart Disease, Coronary Artery Disease, Diabetes Mellitus Type 2, Gastroesophageal Reflux Disease(GERD), Hyperlipidemia, Hypertension, Myocardial Infarction <BraulioAdelaide - 01/30/20 08:39> *Have you ever received a pneumonia vaccine?: No <Adelaide Ramsey 01/30/20 08:39> *Have you received a flu vaccine this season?: No <Adelaide Ramsey 01/30/20 08:39> Other Medical History: Reports: Arthritis, Cataracts <Adelaide Ramsey 01/30/20 08:39> Other Surgeries: Yes: Cardiac Catheterization, Cardiac Surgery, Coronary Stent (3 STENTS PLACED IN 1998), Open Heart Surgery <Adelaide Ramsey 01/30/20 08:39> Amputation: Yes (R BIG TOE) <Adelaide Ramsey 01/30/20 08:39> - *Social History Educational Level: Attended Grade School <Adelaide Ramsey 01/30/20 08:39> Smoking Status: Former smoker <BraulioAdelaide Car 01/30/20 08:39> Tobacco Type: cigarettes <RamseyAdelaide Car 01/30/20 08:39> # Packs/Day (cigarettes): 4 <RamseyAdelaide 01/30/20 08:39> Alcohol Intake Frequency:: a few times a week <Ramsey,Adelaide Car 01/30/20 08:39> *Occupational Status:: employed <BraulioAdelaide Car 01/30/20 08:39> Housing: apartment <RamseyAdelaide Car 01/30/20 08:39> *Travel in the last 8 weeks: None <BraulioAdelaide Car 01/30/20 08:39> Family Hx:: Cancer, Coronary Artery Disease, Diabetes, Heart Attack, Hype rlipidemia, Hypertension <Ramsey,Adelaide 01/30/20 08:39> Review of Systems - Constitutional Denies chills, Denies headache(s), Denies weakness <BraulioAdelaide 01/30/20 08:39> - Eyes Denies change in vision <BraulioAdelaide 01/30/20 08:39> - ENT Denies ear pain, Denies sore throat <BraulioAdelaide 01/30/20 08:39> - *Cardiovascular Denies chest pain, Denies shortness of breath <BraulioAdelaide 01/30/20 08:39> - *Respiratory Denies chest congestion, Denies cough, Denies shortness of breath <BraulioAdelaide 01/30/20 08:39> - *Gastrointestinal Denies abdominal pain, Denies change in bowel habits, Denies constipation, Denies heartburn, Denies heartburn, Denies vomiting blood, Denies black, tarry stools, Denies nausea, Denies vomiting <BraulioAdelaide 01/30/20 08:39> - *Genitourinary Denies difficulty urinating <Adelaide Ramsey 01/30/20 08:39> - *Musculoskeletal Reports joint pain (Back), Denies abnormal walking <BraulioAdelaide 01/30/20 08:39> - *Neurologic Denies localized weakness <BraulioAdelaide 01/30/20 08:39> Meds Home Medications Medication Instructions Recorded Confirmed Type Aspirin [Aspirin EC 325mg Tab] 325 mg PO DAILY 08/17/19 01/30/20 History Glimepiride 4 mg PO BID 08/17/19 01/30/20 History Metformin HCl [Metformin 1000mg 1,000 mg PO BID 08/17/19 01/30/20 History Tablets] Omeprazole 20 mg PO BID 08/17/19 01/30/20 History lisinopriL [Lisinopril 5mg 5 mg PO DAILY 08/17/19 01/30/20 History Tablet] atorvastatin 80 mg tablet 80 mg PO DAILY 10/10/19 01/30/20 History furosemide 40 mg tablet 40 mg PO DAILY 10/10/19 01/30/20 History insulin glargine 100 unit/mL (3 45 unit SQ DAILY ml 10/10/19 01/30/20 History mL) subcutaneous pen metoprolol tartrate 25 mg tablet 25 mg PO TID tab 10/10/19 01/30/20 History potassium chloride 20 mEq 20 meq PO DAILY 10/10/19 01/30/20 History tablet,extended release Cetirizine HCl 10 mg PO DAILY 01/30/20 01/30/20 History Hydrocodone/Acetaminophen 1 each PO BIDP PRN 01/30/20 01/30/20 History [Hydrocodon-Acetaminoph 7.5-325] <Quinten Loza - 01/30/20 08:58> Allergies Allergy/AdvReac Type Severity Reaction Status Date / Time No Known Allergies Allergy Verified 01/29/20 21:42 <Quinten Loza - 01/30/20 08:58> Exam Vital signs and Labs for Last 24 Hours: Temp Pulse Resp BP Pulse Ox 97.7 F 77 16 139/74 100 01/30/20 08:00 01/30/20 08:00 01/30/20 08:00 01/30/20 08:00 01/30/20 08:00 Laboratory Results - last 24 hr 01/29/20 21:42: WBC 7.1, RBC 4.45 L, Hgb 10.8 L, Hct 34.9 L, MCV 78.4 L, MCH 24.2 L, MCHC 30.8 L, RDW 15.9, Plt Count 184, MPV 8.3, Neut % (Auto) 72.6, Lymph % (Auto) 19.6, [place] % (Auto) 5.6, Eos % (Auto) 1.9, Baso % (Auto) 0.3, Neut # (Auto) 5.1, Lymph # (Auto) 1.4, [place] # (Auto) 0.4, Eos # (Auto) 0.1, Baso # (Auto) 0.0, ESR 96 H 01/29/20 21:42: Sodium 133 L, Potassium 4.6, Chloride 96 L, Carbon Dioxide 25, Anion Gap 16.6 H, BUN 16, Creatinine 0.90, Estimated Creat Clear 85, Estimated GFR 85, Est GFR ( Amer) 102, Glucose 392 H, Calcium 9.0, Total Bilirubin 0.4, AST 30, ALT 23, Alkaline Phosphatase 108, C-Reactive Protein 66.0 H, Total Protein 8.1, Albumin 4.0, Globulin 4.1 H, Albumin/Globulin Ratio 1.0 L 01/29/20 21:42: Lactate 1.9 01/30/20 05:26: POC Glucose 186 H 01/30/20 06:18: WBC 6.9, RBC 4.63, Hgb 11.3 L, Hct 36.1 L, MCV 78.0 L, MCH 24.4 L, MCHC 31.3 L, RDW 16.1, Plt Count 201, MPV 8.9, Neut % (Auto) 75.3, Lymph % (Auto) 16.0, [place] % (Auto) 5.8, Eos % (Auto) 2.7, Baso % (Auto) 0.3, Neut # (Auto) 5.2, Lymph # (Auto) 1.1, [place] # (Auto) 0.4, Eos # (Auto) 0.2, Baso # (Auto) 0.0 01/30/20 06:18: Sodium 139, Potassium 4.5, Chloride 103, Carbon Dioxide 27, Anion Gap 13.5, BUN 13, Creatinine 0.70 D, Estimated Creat Clear 77, Estimated GFR 113, Est GFR ( Amer) 137 D, Glucose 180 H D, Calcium 9.0 <[place] - 01/30/20 08:58> Temp Pulse Resp BP Pulse Ox 97.7 F 77 16 139/74 100 01/30/20 08:00 01/30/20 08:00 01/30/20 08:00 01/30/20 08:00 01/30/20 08:00 Laboratory Results - last 24 hr 01/29/20 21:42: WBC 7.1, RBC 4.45 L, Hgb 10.8 L, Hct 34.9 L, MCV 78.4 L, MCH 24.2 L, MCHC 30.8 L, RDW 15.9, Plt Count 184, MPV 8.3, Neut % (Auto) 72.6, Lymph % (Auto) 19.6, [place] % (Auto) 5.6, Eos % (Auto) 1.9, Baso % (Auto) 0.3, Neut # (Auto) 5.1, Lymph # (Auto) 1.4, [place] # (Auto) 0.4, Eos # (Auto) 0.1, Baso # (Auto) 0.0, ESR 96 H 01/29/20 21:42: Sodium 133 L, Potassium 4.6, Chloride 96 L, Carbon Dioxide 25, Anion Gap 16.6 H, BUN 16, Creatinine 0.90, Estimated Creat Clear 85, Estimated GFR 85, Est GFR ( Amer) 102, Glucose 392 H, Calcium 9.0, Total Bilirubin 0.4, AST 30, ALT 23, Alkaline Phosphatase 108, C-Reactive Protein 66.0 H, Total Protein 8.1, Albumin 4.0, Globulin 4.1 H, Albumin/Globulin Ratio 1.0 L 01/29/20 21:42: Lactate 1.9 01/30/20 05:26: POC Glucose 186 H 01/30/20 06:18: WBC 6.9, RBC 4.63, Hgb 11.3 L, Hct 36.1 L, MCV 78.0 L, MCH 24.4 L, MCHC 31.3 L, RDW 16.1, Plt Count 201, MPV 8.9, Neut % (Auto) 75.3, Lymph % (Auto) 16.0, [place] % (Auto) 5.8, Eos % (Auto) 2.7, Baso % (Auto) 0.3, Neut # (Auto) 5.2, Lymph # (Auto) 1.1, [place] # (Auto) 0.4, Eos # (Auto) 0.2, Baso # (Auto) 0.0 01/30/20 06:18: Sodium 139, Potassium 4.5, Chloride 103, Carbon Dioxide 27, Anion Gap 13.5, BUN 13, Creatinine 0.70 D, Estimated Creat Clear 77, Estimated GFR 113, Est GFR ( Amer) 137 D, Glucose 180 H D, Calcium 9.0 <BraulioAdelaide - 01/30/20 08:39> I & O for Last 24 hours: Intake & Output 01/27/20 01/28/20 01/29/20 01/30/20 23:59 23:59 23:59 23:59 Intake Total 256 / 256 Output Total 1000 / 1000 Balance -744 / -744 Weight 164 lb <Quinten Loza - 01/30/20 08:58> Intake & Output 01/27/20 01/28/20 01/29/20 01/30/20 11:59 11:59 11:59 11:59 Intake Total 256 / 256 Output Total 1000 / 1000 Balance -744 / -744 Weight 164 lb <Adelaide Ramsey - 01/30/20 08:39> Radiology Reports for the Last 24 Hours: 2019 left foot x-ray IMPRESSION: No acute bone pathology. 01/29/2020 CT of the left foot IMPRESSION: Widespread inflammation/edema throughout the soft tissues. No acute bone pathology. <Adelaide Ramsey 01/30/20 08:47> - Constitutional no acute distress <Adelaide Ramsey 01/30/20 08:47> - Routine Chest/Breast/Axilla Exam Comments: Midsternal postsurgical chest wound well-healed. <Adelaide Ramsey 01/30/20 08:47> - *Routine Respiratory Exam Present: CTA bilaterally (Anteriorly and posteriorly) <Adelaide Ramsey 01/30/20 08:47> - *Routine Cardiovascular Exam Present: RRR <Adelaide Ramsey 01/30/20 08:47> - *Routine Abdominal Exam Present: soft, normoactive bowel sounds. Absent: tenderness, distended <Adelaide Johnson 01/30/20 08:47> - *Routine Extremities Exam Comments: Right foot without edema and no calf tenderness. Left lower extremity with some edema. Dressing on left foot is clean and dry. <Adelaide Ramsey 01/30/20 08:47> - *Routine Neurological Exam Present: alert, oriented X3 <Adelaide Ramsey - 01/30/20 08:47> Assessment and Plan (1) Cellulitis and abscess of foot Current visit: Yes Status: Acute Category: Medical Code(s): L03.119 - Cellulitis of unspecified part of limb; L02.619 - Cutaneous abscess of unspecified foot (2) Diabetic foot infection Current visit: Yes Status: Acute Category: Medical Code(s): E11.628 - Type 2 diabetes mellitus with other skin complications; L08.9 - Local infection of the skin and subcutaneous tissue, unspecified (3) S/P CABG x 6 Current visit: Yes Status: Acute Category: Surgical Code(s): Z95.1 - Presence of aortocoronary bypass graft (4) IDDM (insulin dependent diabetes mellitus) Current visit: Yes Status: Chronic Category: Medical Code(s): E11.9 - Type 2 diabetes mellitus without complications; 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 (5) CAD, multiple vessel Current visit: No Status: Acute Category: Medical Code(s): I25.10 - Atherosclerotic heart disease of [place] coronary artery without angina pectoris <Quinten Loza - 01/30/20 08:58> (1) Cellulitis and abscess of foot Current visit: Yes Status: Acute Category: Medical Code(s): L03.119 - Cellulitis of unspecified part of limb; L02.619 - Cutaneous abscess of unspecified foot (2) Diabetic foot infection Current visit: Yes Status: Acute Category: Medical Code(s): E11.628 - Type 2 diabetes mellitus with other skin complications; L08.9 - Local infection of the skin and subcutaneous tissue, unspecified (3) S/P CABG x 6 Current visit: Yes Status: Acute Category: Surgical Code(s): Z95.1 - Presence of aortocoronary bypass graft (4) IDDM (insulin dependent diabetes mellitus) Current visit: Yes Status: Chronic Category: Medical Code(s): E11.9 - Type 2 diabetes mellitus without complications; 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 Cont. Vanc and Zosyn. <Quinten Loza - 01/30/20 08:58> Patient is on sliding scale insulin. Patient has been started on IV vancomycin. Patient will be seen by Dr. Corado this morning. <Adelaide Ramsey - 01/30/20 08:47>
--- NOTE | 2020-01-30 10:16 | Consult Report ---
*Admission Date: 01/29/20 *Reason for consult:: Left DM foot infection, gangrene *History of present illness: Mr. Eaton is a 64-year-old male with a history of coronary artery disease and diabetes mellitus who presented to [facility] emergency room 01/29/20 after noticing bloody drainage from the left foot. He states he began having problems last week when his foot got wet at work. 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 He noticed blisters and began to put steroid cream on it. He said the nail on the second toe did come off today. He denies having any pain and no fever. He has noticed some edema of the leg. Patient receives his health care in [place]. 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 He had an appt with his Boat Washer, Dr. Acosta in [place] scheduled for today. He has had a recent bypass surgery about 3 to 4 months ago with previous stents years ago. He states his blood sugars fluctuate. This a.m. he is comfortable. He has slept. He states his leg/foot does not hurt. He is n.p.o. Review of Systems - Review of Systems Review of systems:: pertinent systems reviewed and negative unless documented below - Constitutional Denies chills - Eyes Denies blind spots - ENT Denies abnormal hearing - *Cardiovascular Reports foot swelling, Denies chest pain, Denies shortness of breath - *Respiratory Denies shortness of breath - *Gastrointestinal Denies abdominal pain, Denies nausea, Denies vomiting - *Genitourinary Denies difficulty urinating - *Musculoskeletal Reports joint swelling - Integumentary/Breasts Reports hair loss, Reports nail changes, Reports change in skin color, Reports skin ulcer, Reports sores, Reports wounds - *Neurologic Denies abnormal walking, Denies localized weakness, Denies headache(s), Denies weakness - Psychiatric Denies abnormal sleep pattern - Hematologic/Lymphatic Reports easy bruising [facility] History I have reviewed the patient's past medical history: Yes Medical History: Reports:: Atherosclerotic Heart Disease, Coronary Artery Disease, Diabetes Mellitus Type 2, Gastroesophageal Reflux Disease(GERD), Hyperlipidemia, Hypertension, Myocardial Infarction *Have you ever received a pneumonia vaccine?: No *Have you received a flu vaccine this season?: No Other Medical History: Reports: Arthritis, Cataracts Other Surgeries: Yes: Cardiac Catheterization, Cardiac Surgery, Coronary Stent (3 STENTS PLACED IN 1998), Open Heart Surgery Amputation: Yes (R BIG TOE) - *Social History Educational Level: Attended Grade School Smoking Status: Former smoker Tobacco Type: cigarettes # Packs/Day (cigarettes): 4 Alcohol Intake: never Alcohol Intake Frequency:: a few times a week *Occupational Status:: employed Housing: apartment *Travel in the last 8 weeks: None Family Hx:: Cancer, Coronary Artery Disease, Diabetes, Heart Attack, Hyperlip idemia, Hypertension Meds Home Medications Medication Instructions Recorded Confirmed Type Aspirin [Aspirin EC 325mg Tab] 325 mg PO DAILY 08/17/19 01/30/20 History Glimepiride 4 mg PO BID 08/17/19 01/30/20 History Metformin HCl [Metformin 1000mg 1,000 mg PO BID 08/17/19 01/30/20 History Tablets] Omeprazole 20 mg PO BID 08/17/19 01/30/20 History lisinopriL [Lisinopril 5mg 5 mg PO DAILY 08/17/19 01/30/20 History Tablet] atorvastatin 80 mg tablet 80 mg PO DAILY 10/10/19 01/30/20 History furosemide 40 mg tablet 40 mg PO DAILY 10/10/19 01/30/20 History insulin glargine 100 unit/mL (3 45 unit SQ DAILY ml 10/10/19 01/30/20 History mL) subcutaneous pen metoprolol tartrate 25 mg tablet 25 mg PO TID tab 10/10/19 01/30/20 History potassium chloride 20 mEq 20 meq PO DAILY 10/10/19 01/30/20 History tablet,extended release Cetirizine HCl 10 mg PO DAILY 01/30/20 01/30/20 History Hydrocodone/Acetaminophen 1 each PO BIDP PRN 01/30/20 01/30/20 History [Hydrocodon-Acetaminoph 7.5-325] Allergies Allergy/AdvReac Type Severity Reaction Status Date / Time No Known Allergies Allergy Verified 01/29/20 21:42 Exam Vital signs and Labs for Last 24 Hours: Temp Pulse Resp BP Pulse Ox 97.7 F 77 16 139/74 100 01/30/20 08:00 01/30/20 08:00 01/30/20 08:00 01/30/20 08:00 01/30/20 08:00 Laboratory Results - last 24 hr 01/29/20 21:42: WBC 7.1, RBC 4.45 L, Hgb 10.8 L, Hct 34.9 L, MCV 78.4 L, MCH 24.2 L, MCHC 30.8 L, RDW 15.9, Plt Count 184, MPV 8.3, Neut % (Auto) 72.6, Lymph % (Auto) 19.6, Bremer % (Auto) 5.6, Eos % (Auto) 1.9, Baso % (Auto) 0.3, Neut # (Auto) 5.1, Lymph # (Auto) 1.4, Bremer # (Auto) 0.4, Eos # (Auto) 0.1, Baso # (Auto) 0.0, ESR 96 H 01/29/20 21:42: Sodium 133 L, Potassium 4.6, Chloride 96 L, Carbon Dioxide 25, Anion Gap 16.6 H, BUN 16, Creatinine 0.90, Estimated Creat Clear 85, Estimated GFR 85, Est GFR ( Amer) 102, Glucose 392 H, Calcium 9.0, Total Bilirubin 0.4, AST 30, ALT 23, Alkaline Phosphatase 108, C-Reactive Protein 66.0 H, Total Protein 8.1, Albumin 4.0, Globulin 4.1 H, Albumin/Globulin Ratio 1.0 L 01/29/20 21:42: Lactate 1.9 01/30/20 05:26: POC Glucose 186 H 01/30/20 06:18: WBC 6.9, RBC 4.63, Hgb 11.3 L, Hct 36.1 L, MCV 78.0 L, MCH 24.4 L, MCHC 31.3 L, RDW 16.1, Plt Count 201, MPV 8.9, Neut % (Auto) 75.3, Lymph % (Auto) 16.0, Bremer % (Auto) 5.8, Eos % (Auto) 2.7, Baso % (Auto) 0.3, Neut # (Auto) 5.2, Lymph # (Auto) 1.1, Bremer # (Auto) 0.4, Eos # (Auto) 0.2, Baso # (Auto) 0.0 01/30/20 06:18: Sodium 139, Potassium 4.5, Chloride 103, Carbon Dioxide 27, Anion Gap 13.5, BUN 13, Creatinine 0.70 D, Estimated Creat Clear 77, Estimated GFR 113, Est GFR ( Amer) 137 D, Glucose 180 H D, Calcium 9.0 I & O for Last 24 hours: Intake & Output 01/27/20 01/28/20 01/29/20 01/30/20 11:59 11:59 11:59 11:59 Intake Total 256 / 256 Output Total 1000 / 1000 Balance -744 / -744 Weight 164 lb - Constitutional no acute distress - *Routine HEENT Exam Head: Present: normocephalic - *Routine Neck Exam Present: supple - *Routine Respiratory Exam Present: CTA bilaterally - *Routine Cardiovascular Exam Present: RRR - *Routine Abdominal Exam Present: soft. Absent: guarding - *Routine Rectal Exam Patient deferred: visual exam - *Routine Exam Patient deferred: penile exam - *Routine Extremities Exam Present: edema, amputation (R hallux) - *Routine Skin Exam Present: erythema, scars, wounds, gangrene, ecchymosis - *Routine Neurological Exam Present: alert, moving all extremities - Detailed Lower Extremity Exam Top foot image: 1 - Left 1-3rd toes have gangrenous changes with malodor and skin sloughing. Left 2nd toenail absent, with tracking that probes to bone. Purulence drainage from left hallux. Edema and erythema noted to the left midfoot. Equinus noted b/l. Right hallux amputation-well healed. Results - Labs Result Diagrams: 01/30/20 06:18 01/30/20 06:18 Labs: Abnormal lab results 01/29/20 01/29/20 01/30/20 Range/Units 21:42 21:42 05:26 RBC 4.45 L (4.60-6.20) M/mm3 Hgb 10.8 L (14.1-18.0) g/dL Hct 34.9 L (42.0-52.0) % MCV 78.4 L (80-94) fl MCH 24.2 L (27.0-31.2) pg MCHC 30.8 L (31.8-35.4) g/dL ESR 96 H (0-20) mm/hr Sodium 133 L (136-145) mmol/L Chloride 96 L (98-107) mmol/L Anion Gap 16.6 H (5-15) mEq/L Glucose 392 H (74-100) mg/dl POC Glucose 186 H (70-110) C-Reactive Protein 66.0 H (0-4) mg/L Globulin 4.1 H (1.3-3.2) g/dL Albumin/Globulin Ratio 1.0 L (1.1-1.8) 01/30/20 01/30/20 Range/Units 06:18 06:18 RBC (4.60-6.20) M/mm3 Hgb 11.3 L (14.1-18.0) g/dL Hct 36.1 L (42.0-52.0) % MCV 78.0 L (80-94) fl MCH 24.4 L (27.0-31.2) pg MCHC 31.3 L (31.8-35.4) g/dL ESR (0-20) mm/hr Sodium (136-145) mmol/L Chloride (98-107) mmol/L Anion Gap (5-15) mEq/L Glucose 180 H D (74-100) mg/dl POC Glucose (70-110) C-Reactive Protein (0-4) mg/L Globulin (1.3-3.2) g/dL Albumin/Globulin Ratio (1.1-1.8) H & H 01/29/20 01/30/20 Range/Units 21:42 06:18 Hgb 10.8 L 11.3 L (14.1-18.0) g/dL Hct 34.9 L 36.1 L (42.0-52.0) % All other labs normal. - Diagnostic results Ankle/Foot x-ray: image reviewed Ankle/Foot CT: image reviewed Assessment and Plan (1) Cellulitis and abscess of foot Current visit: Yes Status: Acute Category: Medical Code(s): L03.119 - Cellulitis of unspecified part of limb; L02.619 - Cutaneous abscess of unspecified foot (2) Diabetic foot infection Current visit: Yes Status: Acute Category: Medical Code(s): E11.628 - Type 2 diabetes mellitus with other skin complications; L08.9 - Local infection of the skin and subcutaneous tissue, unspecified (3) S/P CABG x 6 Current visit: Yes Status: Acute Category: Surgical Code(s): Z95.1 - Presence of aortocoronary bypass graft (4) IDDM (insulin dependent diabetes mellitus) Current visit: Yes Status: Chronic Category: Medical Code(s): E11.9 - Type 2 diabetes mellitus without complications; Z79.4 - supervisor mails (current) use of insulin (5) CAD, multiple vessel Current visit: No Status: Acute Category: Medical Code(s): I25.10 - Atherosclerotic heart disease of [place] coronary artery without angina pectoris (6) Gangrene of toe of left foot Current visit: Yes Status: Acute Category: Medical Code(s): I96 - Gangrene, not elsewhere classified (7) History of amputation of right great toe Current visit: Yes Status: Acute Category: Medical Code(s): Z89.411 - Acquired absence of right great toe (8) Equinus contracture of left ankle Current visit: Yes Status: Acute Category: Medical Code(s): M24.572 - Contracture, left ankle - Assessment and plan all Dx Assessment and Plan for all problems:: PRE-OP AMPUTATION/INFECTION OF LEFT 1-3RD TOES: Radiographs [address] scan of the left foot were reviewed and discussed with the patient. X-rays show soft tissue defect over the distal phalanx of the left second toe. Generalized diffuse soft tissue swelling is seen from the level of the distal calf to the foot. No air or opaque foreign body is seen in the soft tissues, and there is no circumscribed fluid collection suspicious for abscess via noncontrast exam. Vascular studies, LE US Arterial: Findings RT TANA:1.03 LT TANA:0.95 RT TBI:0.75 LT TBI:1.10 DAMPENED PRESSURES ON THE RIGHT AND LT THIGH PULSES NORMAL BILATERALLY DM NAIL CARE: Discussed with the patient the importance of keeping the toenails well managed to avoid sore/ulcers which can result from the nails digging into the skin. The patient can not bend over and has difficulty to cut the nails. 1. Nails were debrided xs 7 utilizing manual debridement with a nail nipper. 2. A Dremel was then used to take down the thickness of all toenails. 3. Patient tolerated the procedure well. 4. Recommend the use of karie board to file nails down and keep thinner. 5. Follow up in 2.5-3 months or as needed. Skin cleaned with Betadine. Utilizing a 15 blade and pickups the skin and blister was popped over the left hallux. Purulent drainage expressed. Wound culture obtained. We discussed conservative versus surgical treatment options. Conservative treatment options include local wound care, oral and IV antibiotics, change in shoe wear, taping/padding, and off-loading. Discussed that patient would benefit from a wider and deeper shoe wear to accommodate the deformity. We discussed surgical intervention for amputation of the left toes. Patient understands that there is a chance that the toes can migrate to fill the gap or the foot may change shape after surgery. Patient also understands that they could have wound healing complications including delayed healing and infection. We discussed that if the wound does not heal, it is possible that they may need a more proximal amputation and could result in further loss of digits, loss of partial foot or loss of leg. We discussed the risks and benefits in great detail. Other surgical risks include: prolonged pain and swelling, further infection requiring oral or IV antibiotics, delay in healing of soft tissue or bone, nerve or blood vessel damage, CRPS/RSD, DVT, anesthesia complications, and even . Consent obtained. Dr. Loza gave medical clearance. Pre-op labs and testing: ESR, CRP, CBC, CMP, EKG, CXR. Plan for surgery: 01/30/20 1. Left 1-3rd toe amputation 2. Left incision and drainage 3. Left tendo Achilles lengthening
--- NOTE | 2020-01-30 12:00 | Progress Note ---
[facility] Anesthesia Checklist - Patient Identification Patient Identification: Arm Band, Verbal (Name & ) - Structural Data Admitted From: Inpatient Planned Operative Procedure/s: toe amp Consent for Planned Operative Procedure(s) Verified: Yes Verified Documents: History and Physical - NPO Status Verified Time NPO: 00:00 - Chart Verification Results Verified: CBC, BMP - Additional verifications Patient : No Anesthesia Reactions: No Hx Blood Transfusions: No Blood Transfusion Reaction: No Cephalosporin Allergy: No Previous Colonoscopy: No - Cardiovascular Assessment Heart Sounds: S1 & S2 Pulse Strength: Baseline Pulse Rhythm: Regular Peripheral Edema: No - Airway Assessment C-Spine Mobility Assessed: Yes TMJ Mobility Assessed: Yes Dentition: Edentulous - Neurological Assessment Level of Consciousness: Awake, Alert, Appropriate Hx Seizures: No Numbness or tingling in extremities: No - Anesthesia Plan Anesthesia Risk discussed: Yes Anesthesia Plan: Verified ASA Class: III Anesthesia Type: General [facility] History I have reviewed the patient's past medical history: Yes Medical History: Reports:: Atherosclerotic Heart Disease, Coronary Artery Disease, Diabetes Mellitus Type 2, Gastroesophageal Reflux Disease(GERD), Hyperlipidemia, Hypertension, Myocardial Infarction *Have you ever received a pneumonia vaccine?: No *Have you received a flu vaccine this season?: No Other Medical History: Reports: Arthritis, Cataracts Anesthesia experience/problems:: none Other Surgeries: Yes: Cardiac Catheterization, Cardiac Surgery, Coronary Stent (3 STENTS PLACED IN 1998), Open Heart Surgery Amputation: Yes (R BIG TOE) - *Social History Educational Level: Attended Grade School Smoking Status: Former smoker Tobacco Type: cigarettes # Packs/Day (cigarettes): 4 Alcohol Intake: never Alcohol Intake Frequency:: a few times a week Substance Use Type: other *Occupational Status:: employed Housing: apartment *Travel in the last 8 weeks: None Family Hx:: Cancer, Coronary Artery Disease, Diabetes, Heart Attack, Hyperlipidemia, Hypertension
--- NOTE | 2020-01-30 13:47 | Operative Note ---
Date of procedure: 01/30/20 Pre-op Diagnosis:: 1. Left diabetic foot infection, cellulitis 2. Left diabetic ulcer 3. Left toe gangrene 4. Left foot equinus Post-op Diagnosis:: Same Procedure performed:: 1. Left 1-3rd toe amputation 2. Left tendo Achilles lengthening 3. Left application of antibiotic beads Surgeon:: Kaitlin Corado DPM INTENSIVE CARE UNIT NURSE:: Gregorio Meade Anesthesia: GETA, local (20cc 0.5% marcaine plain) Estimated blood loss (mL): 30 Clinical Note:: We discussed conservative versus surgical treatment options. Conservative treatment options include local wound care, oral and IV antibiotics, change in shoe wear, taping/padding, and off-loading. Discussed that patient would benefit from a wider and deeper shoe wear to accommodate the deformity. We discussed surgical intervention for amputation of the left toes. Patient understands that there is a chance that the toes can migrate to fill the gap or the foot may change shape after surgery. Patient also understands that they could have wound healing complications including delayed healing and infection. We discussed that if the wound does not heal, it is possible that they may need a more proximal amputation and could result in further loss of digits, loss of partial foot or loss of leg. We discussed the risks and benefits in great detail. Other surgical risks include: prolonged pain and swelling, further infection requiring oral or IV antibiotics, delay in healing of soft tissue or bone, nerve or blood vessel damage, CRPS/RSD, DVT, anesthesia complications, and even . Consent ob tained. Dr. Loza gave medical clearance. Pre-op labs and testing: ESR, CRP, CBC, CMP, EKG, CXR. Operative findings:: Right hallux previous amputation. Left first through third toes had skin sloughing with gangrenous necrotic changes to the toe tips. The left second toenail was previously removed and there was tracking down to the level of the bone. Purulent drainage expressed. Malodor noted. The tips of the first second and third toes were soft and crumbly suspicious for osteomyelitis. Equinus deformity appreciated Operative note:: On this date and time patient was deemed an appropriate surgical candidate. With informed consent signed, the patient was taken to the operating theater. The patient was positioned supine. General anesthesia was induced. Left mid calf tourniquet used @225mmHg. The left lower extremity was prepped and drapped in normal sterile fashion. Left tendo Achilles lengthening: Attention was directed to the left foot, which was prepped and draped in a normal sterile fashion. Utilizing a 15 blade stab incision was made x3 in the distal posterior leg. Utilizing the three holes, percutaneous kristel-section of the Achilles was performed with the foot maximally dorsiflexed. Release of the Achilles contracture was noted. The incisions were flushed with copious amounts of sterile saline and the wound was closed with 3-0 Prolene. Left 1-3rd toe digit amputation: Attention was directed to the left 1-3rd toes where skin sloughing was noted along with ulceration. The left second toe was previously removed and there was tracked down to the level of the bone. Gangrenous changes appreciated. Edema and erythema noted extending to the metatarsal phalangeal joints. A fish mouth incision was mapped out around the first, second and third proximal phalanx. Utilizing a 15 blade dissection was carried down sharply to the level of the bone around the proximal phalanx which was disarticulated from the metatarsal head. The distal phalanx bone was soft and crumbly and had a slight malodor to it. The first second and third proximal phalanx was sent as a bone culture. Attention was then directed to the proximal phalanx. Portion of left 1st proximal phalanx was cut and sent for bone biopsy for pathology. The second and third proximal phalanx was sent together as bone culture. The metatarsal heads 13 were then evaluated. The met heads were intact with no cortical erosions, discoloration or obvious signs of osteomyelitis. Next 3 L of bacitracin irrigation was used to flush the wound with pulse lavage. The wound was reexplored and no further signs of infection noted. The tourniquet was deflated and immediate hyperemic response was noted to the digits. Vessels ligated with electrocautery. Bleeding controlled. Left application of antibiotic beads: 1 g of vancomycin powder was mixed with the OsteoSet beads. The antibiotic beads were then inserted. Next 3-0 Prolene was used to close skin over all 3 amp sites in an interrupted simple suture fashion. 20cc 0.5% marcaine plain inserted as post op regional digital and ankle block. The wounds were cleansed. Xeroform, betadine, dry sterile dressing was then applied to the left foot. The patient was awoken from anesthesia and transferred to recovery with vital signs stable and neurovascular status intact. Materials: 3-0 Prolene [employer] Osteoset beads, 1g Vanco powder Discharge/Plan: Transfer back to the floor. Patient is to maintain dressing clean dry and intact. Continue antibiotics. Non weight bearing to the left lower extremity with DME assistance (walker, wheelchair). Obtain post op films, left foot, 3 views. Plan for dressing change tomorrow by myself. Tourniquet time (min): 54 Condition: stable Disposition: floor Specimens:: 1. Left 1st proximal phalanx bone pathology 2. Left 1-3rd distal phalanx bone culture 3. Left 2-3rd proximal phalanx bone culture Complications:: None
--- NOTE | 2020-01-30 14:01 | Progress Note ---
[facility] Anesthesia Record Part I Intake, IV Amount: 600 Estimated blood loss (mL): 10 Urine output (mL): 0 Blood Products used (#): none Blood Pressure: 143/68 SaO2: 99 Pulse Rate: 71 Respiratory Rate: 20 Temperature: 97.9 F Patient is:: Awake, Stable Stable to PACU at:: 13:50
--- NOTE | 2020-01-30 16:05 | Electrocardiograph Report ---
APPROVED REPORT Exam: Resting ECG HR:69 bpm ECG Measurements Heart Rate 69 AXES AK 178 P 22 QRSd 88 QRS 83 QT 394 T-27 QTc 422 <Conclusion> Normal sinus rhythm Small Inferior Q Waves Noted Otherwise a normal ECG Electronically signed by : Suresh Caruso, 01/30/2020 16:05:46
--- NOTE | 2020-01-30 18:02 | Progress Note ---
[facility] Anesthesia Record Part II Discharge Time: 14:20 Destination: Medical Surgical Department PACU nurse assessment reviewed?: Yes Patient Condition:: Good Anesthesia Complications:: None Swallowing reflex intact?: Yes Cyanosis?: No Blood Pressure: 124/55 Pulse Rate: 81 Temperature: 98.0 F Mental Status: Alert & Oriented Pain level:: 0 Nausea and/or vomitting:: None Intake, IV Amount: 25
[2020-01-31 07:15] LABS: Basophils % 0.3 % (0.1-2.0); Eosinophils # 0.2 K/mm3 (0.0-0.4); Eosinophils % 2.8 % (0.1-12.0); Hematocrit 31.8 % (42.0-52.0); Hemoglobin 9.5 g/dL (14.1-18.0); Lymphocytes # 0.9 K/mm3 (0.7-4.5); Lymphocytes % 14.9 % (10-50); Mean Corpuscular HGB Conc 29.9 g/dL (31.8-35.4); Mean Corpuscular Volume 78.5 fl (80-94); Mean Platelet Volume 8.8 fl (7.4-10.4); Monocytes # 0.4 K/mm3 (0.1-1.0); Monocytes % 7.2 % (1.7-9.3); Neutrophils # 4.6 K/mm3 (1.8-7.8); Neutrophils % 74.8 % (37.0-80.0); Platelet Count 185 K/mm3 (142-424); Red Blood Count 4.05 M/mm3 (4.60-6.20); Red Cell Distribution Width 15.9 % (11.5-17.5); White Blood Count 6.1 K/mm3 (4.8-10.8)
[2020-01-31 07:43] LABS: Albumin/Globulin Ratio 0.9 (1.1-1.8); Bilirubin,Total 0.3 mg/dl (0.2-1.3); Calcium 8.1 mg/dl (8.4-10.2); Globulin 3.4 g/dL (1.3-3.2); Total Protein,Serum 6.4 g/dl (6.3-8.2)
[2020-01-31 07:49] LABS: C-Reactive Protein 41.7 mg/L (0-4)
--- NOTE | 2020-01-31 07:56 | Progress Note ---
<Adelaide Ramsey - Last Filed: 01/31/20 07:52> Internal Medicine - PN: Subj *Date: 01/31/20 *Time: 07:52 Interval history: Patient states he slept at intervals last night. He denies chest pain and shortness of breath. He has some pounding like pain in his left lower leg and foot. He states that the pain medicine does make a difference. He is eating without problems. He is voiding QS. His bowels have moved. He has been up with a walker nonweightbearing with help. Patient had amputation of the left first through third toe, left tendo Achilles lengthening, and application of antibiotic beads 01/30/[address] Corado. Patient tolerated the procedure well. Dressing will be changed by Dr. Ballesteros this morning. Cultures are all pending. CBC this morning showed a white blood cell count of 6,100 and hemoglobin of 9.5 and hematocrit of 31.8. He continues with antibiotics of vancomycin and Pipracillin IV. His IV fluids are at 75 an hour. Exam Vital signs and Labs for Last 24 Hours: Temp Pulse Resp BP Pulse Ox 98.0 F 65 17 115/64 98 01/31/20 04:00 01/31/20 04:00 01/31/20 04:00 01/31/20 04:00 01/31/20 04:00 Laboratory Results - last 24 hr 01/30/20 11:23: POC Glucose 156 H 01/30/20 14:00: POC Glucose 153 H 01/30/20 16:17: POC Glucose 212 H 01/31/20 06:45: WBC 6.1, RBC 4.05 L, Hgb 9.5 L, Hct 31.8 L, MCV 78.5 L, MCH 23.5 L, MCHC 29.9 L, RDW 15.9, Plt Count 185, MPV 8.8, Neut % (Auto) 74.8, Lymph % (Auto) 14.9, [place] % (Auto) 7.2, Eos % (Auto) 2.8, Baso % (Auto) 0.3, Neut # (Auto) 4.6, Lymph # (Auto) 0.9, [place] # (Auto) 0.4, Eos # (Auto) 0.2, Baso # (Auto) 0.0 I & O for Last 24 hours: Intake & Output 01/28/20 01/29/20 01/30/20 01/31/20 11:59 11:59 11:59 11:59 Intake Total 256 / 256 3369 / 3369 Output Total 1000 / 1000 1150 / 1150 Balance -744 / -744 2219 / 2219 Weight 164 lb 163 lb 2.273 oz Microbiology Reports for the Last 24 Hours: Microbiology 01/30/20 10:30 Foot,Left - Wound Gram Stain - Final 01/30/20 10:30 Foot,Left - Wound Wound Culture - Preliminary - Constitutional no acute distress Comments: Appears comfortable. - *Routine HEENT Exam Head: Present: normocephalic, atraumatic Eye: Present: PERRL ENT: Present: mucous membranes moist, oropharynx clear Comments: ENT exam completed 01/30/2020 - *Routine Respiratory Exam Present: CTA bilaterally (Anteriorly and posteriorly) - *Routine Cardiovascular Exam Present: RRR - *Routine Abdominal Exam Present: soft, normoactive bowel sounds. Absent: tenderness, distended - *Routine Extremities Exam Present: edema (Left lower extremity with tenderness around the ankle. Dressing on left foot is clean and dry.) - *Routine Neurological Exam Present: alert, oriented X3 Assessment and Plan (1) Cellulitis and abscess of foot Current visit: Yes Status: Acute Category: Medical Code(s): L03.119 - Cellulitis of unspecified part of limb; L02.619 - Cutaneous abscess of uns pecified foot (2) Diabetic foot infection Current visit: Yes Status: Acute Category: Medical Code(s): E11.628 - Type 2 diabetes mellitus with other skin complications; L08.9 - Local infection of the skin and subcutaneous tissue, unspecified (3) S/P CABG x 6 Current visit: Yes Status: Acute Category: Surgical Code(s): Z95.1 - Presence of aortocoronary bypass graft (4) IDDM (insulin dependent diabetes mellitus) Current visit: Yes Status: Chronic Category: Medical Code(s): E11.9 - Type 2 diabetes mellitus without complications; 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 (5) CAD, multiple vessel Current visit: No Status: Acute Category: Medical Code(s): I25.10 - Atherosclerotic heart disease of [place] coronary artery without angina pectoris (6) Gangrene of toe of left foot Current visit: Yes Status: Acute Category: Medical Code(s): I96 - Gangrene, not elsewhere classified (7) History of amputation of right great toe Current visit: Yes Status: Acute Category: Medical Code(s): Z89.411 - Acquired absence of right great toe (8) Equinus contracture of left ankle Current visit: Yes Status: Acute Category: Medical Code(s): M24.572 - Contracture, left ankle (9) Amputation of one or more toes Current visit: Yes Status: Acute Category: Medical Code(s): S98.139A - Complete traumatic amputation of one unspecified lesser toe, initial encounter - Assessment and plan all Dx Assessment and Plan for all problems:: Dressing change per Dr. Corado. Continue with IV fluids and antibiotics. Cultures pending. <Quinten Loza - Last Filed: 01/31/20 08:53> Internal Medicine - PN: Subj *Date: 01/31/20 *Time: 08:51 Exam Vital signs and Labs for Last 24 Hours: Temp Pulse Resp BP Pulse Ox 98.1 F 77 16 124/55 L 100 01/31/20 08:22 01/31/20 08:22 01/31/20 08:22 01/31/20 08:22 01/31/20 08:22 Laboratory Results - last 24 hr 01/30/20 11:23: POC Glucose 156 H 01/30/20 14:00: POC Glucose 153 H 01/30/20 16:17: POC Glucose 212 H 01/31/20 06:45: WBC 6.1, RBC 4.05 L, Hgb 9.5 L, Hct 31.8 L, MCV 78.5 L, MCH 23.5 L, MCHC 29.9 L, RDW 15.9, Plt Count 185, MPV 8.8, Neut % (Auto) 74.8, Lymph % (Auto) 14.9, [place] % (Auto) 7.2, Eos % (Auto) 2.8, Baso % (Auto) 0.3, Neut # (Auto) 4.6, Lymph # (Auto) 0.9, [place] # (Auto) 0.4, Eos # (Auto) 0.2, Baso # (Aut o) 0.0 01/31/20 06:45: Sodium 139, Potassium 4.0, Chloride 103, Carbon Dioxide 27, Anion Gap 13.0, BUN 15, Creatinine 0.90 D, Estimated Creat Clear 77, Estimated GFR 85, Est GFR ( Amer) 102 D, Glucose 168 H, Calcium 8.1 L, Total Bilirubin 0.3, AST 24, ALT 17 D, Alkaline Phosphatase 76, C-Reactive Protein 41.7 H D, Total Protein 6.4, Albumin 3.0 L D, Globulin 3.4 H, Albumin/Globulin Ratio 0.9 L 01/31/20 06:45: Hemoglobin A1c 9.3 H I & O for Last 24 hours: Intake & Output 01/28/20 01/29/20 01/30/20 01/31/20 23:59 23:59 23:59 23:59 Intake Total 1952 / 1951 2293 / 2293 Output Total 1000 / 1000 1150 / 1150 Balance 952 / 952 1143 / 1143 Weight 164 lb 163 lb 2.273 oz 163 lb 2.273 oz Microbiology Reports for the Last 24 Hours: Microbiology 01/30/20 10:30 Foot,Left - Wound Gram Stain - Final 01/30/20 10:30 Foot,Left - Wound Wound Culture - Preliminary Assessment and Plan (1) Cellulitis and abscess of foot Current visit: Yes Status: Acute Category: Medical Code(s): L03.119 - Cellulitis of unspecified part of limb; L02.619 - Cutaneous abscess of unspecified foot (2) Diabetic foot infection Current visit: Yes Status: Acute Category: Medical Code(s): E11.628 - Type 2 diabetes mellitus with other skin complications; L08.9 - Local infection of the skin and subcutaneous tissue, unspecified (3) S/P CABG x 6 Current visit: Yes Status: Acute Category: Surgical Code(s): Z95.1 - Presence of aortocoronary bypass graft (4) IDDM (insulin dependent diabetes mellitus) Current visit: Yes Status: Chronic Category: Medical Code(s): E11.9 - Type 2 diabetes mellitus without complications; 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 (5) CAD, multiple vessel Current visit: No Status: Acute Category: Medical Code(s): I25.10 - Atherosclerotic heart disease of [place] coronary artery without angina pectoris (6) Gangrene of toe of left foot Current visit: Yes Status: Acute Category: Medical Code(s): I96 - Gangrene, not elsewhere classified (7) History of amputation of right great toe Current visit: Yes Status: Acute Category: Medical Code(s): Z89.411 - Acquired absence of right great toe (8) Equinus contracture of left ankle Current visit: Yes Status: Acute Category: Medical Code(s): M24.572 - Contracture, left ankle (9) Amputation of one or more toes Current visit: Yes Status: Acute Category: Medical Code(s): S98.139A - Complete traumatic amputation of one unspecified lesser toe, initial encounter - Assessment and plan all Dx Assessment and Plan for all problems:: Saw patient, agree with above note. Will need to work out outpatient antibiotics.
--- NOTE | 2020-01-31 08:19 | Progress Note ---
Subjective Date: 01/31/20 Time: 08:05 Principal diagnosis: Left DM infx, cellulitis, gangrene Interval history: Patient is resting comfortably in bed. He reports some pain controlled with oral pain medication, "but better than before". His foot is elevated on a pillow. He denies nausea vomiting, fever chills, shortness of breath and chest pain. PN: Obj Ex Vital signs: Temp Pulse Resp BP Pulse Ox 98.0 F 65 17 115/64 98 01/31/20 04:00 01/31/20 04:00 01/31/20 04:00 01/31/20 04:00 01/31/20 04:00 - Constitutional no acute distress - Routine HEENT Exam Head: Present: normocephalic - Routine Neck Exam Present: supple - Routine Respiratory Exam Absent: prolonged expiratory phase, respiratory distress - Routine Cardiovascular Exam Present: RRR - Routine Abdominal Exam Present: soft. Absent: guarding - Routine Extremities Exam Present: edema, pulses intact, amputation (L 1-3 toes, R hallux amp) - Detailed Lower Extremity Exam Top foot image: 1 - L 1-3rd toe amps with sutures clean dry and intact. Sutures intact to posterior leg, over Achilles. Edema and erythema improved. No malodor or drainage noted. No calf or thigh pain. Pedal pulses palpable. Skin temp warm. - Routine Skin Exam Present: warm, wounds. Absent: gangrene - Routine Neurological Exam Present: alert, oriented X3 - Routine Psychiatric Exam Present: normal affect Progress Note: A&P (1) Cellulitis and abscess of foot Status: Acute Current Visit: Yes (2) Diabetic foot infection Status: Acute Current Visit: Yes (3) S/P CABG x 6 Status: Acute Current Visit: Yes (4) IDDM (insulin dependent diabetes mellitus) Status: Chronic Current Visit: Yes (5) CAD, multiple vessel Status: Acute Current Visit: No (6) Gangrene of toe of left foot Status: Acute Current Visit: Yes (7) History of amputation of right great toe Status: Acute Current Visit: Yes (8) Equinus contracture of left ankle Status: Acute Current Visit: Yes (9) Amputation of one or more toes Status: Acute Current Visit: Yes Assessment and Plan for All Diagnoses:: S/p left 1-3rd toe amputation, tendo Achilles lengthening, application of antibiotic beads Sx: 01/30/20, POD #1 Intra-Op bone and wound cultures, 01/30/2020: pending Dressing change at the bedside today by myself. Overall the foot looks much better with decreased erythema and edema. No malodor noted. Sutures are intact to the amputation site and the VANDANA site. Discussed with the patient the plan for discharge. He will need to wear the short fracture boot and be nonweightbearing with the walker. He states that he has a walker at his sister's house. He feels comfortable to use the walker. Patient can only put weight in the boot to the heel when getting out of bed to help transition. 1. Continue IV vanco, zosyn today 2. Maintain dressing clean dry and intact to left foot 3. Non weight bearing to the left lower extremity with DME assistance (walker) 4. Elevate on one pillow 5. Continue incentive spirometer 6. Dispensed and fitted short fracture boot 7. Plan for IV Orbactiv x 1 dose tomorrow prior to discharge 8. Rx needed for [place] 7.5/325, [place] 300mg TID x 2 weeks 9. Plan for dressing changes by Podiatry tomorrow prior to discharge 10. Follow up outpatient with Podiatry, [facility] 02/06/20 @0820 A pre-fabricated short fracture boot was dispensed and fitted at the bedside. Due to the diagnosis and elated symptoms this is medically necessary for treatment. The function of this device is to redistribute pressure, provide compression, and reduce stress and strain at the ankle/foot ligaments, tendons and along the Achilles tendon. The goals and function of this device was explained in detail to the patient. Upon gait analysis, the device appeared to be fitting well, and the patient states that the device is comfortable at this time. The patient was shown how to properly apply, wear, and care for the device. The patient was able to apply properly and ambulate without distress. At the time the device was dispensed, it was suitable for the patient's condition and was not substandard. No guarantees were given, and precautions were reviewed. Written instructions and warranty information was given along with the list of the [employer] [facility] (Durable Medical Equipment [place] pplier Guidelines), . All questions were answered satisfactorily. Approximately 15-20 minutes were spent on education. [L1902]
--- NOTE | 2020-01-31 14:07 | Pharmacy Consult Notes ---
- Pharmacy Consult Date: 01/31/20 Time: 14:06 Referring provider: DR. SOTO Reason for Consult:: VANCOMYCIN TROUGH LEVEL Allergies and ADEs:: Allergies Allergy/AdvReac Type Severity Reaction Status Date / Time No Known Allergies Allergy Verified 01/29/20 21:42 Home Medications:: Home Medications Medication Instructions Recorded Confirmed Type Aspirin [Aspirin EC 325mg Tab] 325 mg PO DAILY 08/17/19 01/30/20 History Glimepiride 4 mg PO BID 08/17/19 01/30/20 History Metformin HCl [Metformin 1000mg 1,000 mg PO BID 08/17/19 01/30/20 History Tablets] Omeprazole 20 mg PO BID 08/17/19 01/30/20 History lisinopriL [Lisinopril 5mg 5 mg PO DAILY 08/17/19 01/30/20 History Tablet] atorvastatin 80 mg tablet 80 mg PO DAILY 10/10/19 01/30/20 History furosemide 40 mg tablet 40 mg PO DAILY 10/10/19 01/30/20 History insulin glargine 100 unit/mL (3 40 unit SQ BID ml 10/10/19 01/30/20 History mL) subcutaneous pen metoprolol tartrate 25 mg tablet 25 mg PO TID tab 10/10/19 01/30/20 History potassium chloride 20 mEq 20 meq PO DAILY 10/10/19 01/30/20 History tablet,extended release Cetirizine HCl 10 mg PO DAILY 01/30/20 01/30/20 History Hydrocodone/Acetaminophen 1 each PO BIDP PRN 01/30/20 01/30/20 History [Hydrocodon-Acetaminoph 7.5-325] Height: 1.75 m Weight: 74 kg Laboratory Results:: Laboratory Results - last 24 hr 01/30/20 11:23: POC Glucose 156 H 01/30/20 14:00: POC Glucose 153 H 01/30/20 16:17: POC Glucose 212 H 01/31/20 06:45: WBC 6.1, RBC 4.05 L, Hgb 9.5 L, Hct 31.8 L, MCV 78.5 L, MCH 23.5 L, MCHC 29.9 L, RDW 15.9, Plt Count 185, MPV 8.8, Neut % (Auto) 74.8, Lymph % (Auto) 14.9, [place] % (Auto) 7.2, Eos % (Auto) 2.8, Baso % (Auto) 0.3, Neut # (Auto) 4.6, Lymph # (Auto) 0.9, [place] # (Auto) 0.4, Eos # (Auto) 0.2, Baso # (Auto) 0.0 01/31/20 06:45: Sodium 139, Potassium 4.0, Chloride 103, Carbon Dioxide 27, Anion Gap 13.0, BUN 15, Creatinine 0.90 D, Estimated Creat Clear 77, Estimated GFR 85, Est GFR ( Amer) 102 D, Glucose 168 H, Calcium 8.1 L, Total Bilirubin 0.3, AST 24, ALT 17 D, Alkaline Phosphatase 76, C-Reactive Protein 41.7 H D, Total Protein 6.4, Albumin 3.0 L D, Globulin 3.4 H, Albumin/Globulin Ratio 0.9 L 01/31/20 06:45: ESR > 140 H 01/31/20 06:45: Hemoglobin A1c 9.3 H 01/31/20 11:20: POC Glucose 301 H* 01/31/20 12:55: Vancomycin Trough 15.0 H Medical History: Reports:: Atherosclerotic Heart Disease, Coronary Artery Disease, Diabetes Mellitus Type 2, Gastroesophageal Reflux Disease(GERD), Hyperlipidemia, Hypertension, Myocardial Infarction Denies:: Seizures Assessment and Plan (1) Cellulitis and abscess of foot Current visit: Yes Status: Acute Category: Medical Code(s): L03.119 - Cellulitis of unspecified part of limb; L02.619 - Cutaneous abscess of unspecified foot (2) Diabetic foot infection Current visit: Yes Status: Acute Category: Medical Code(s): E11.628 - Type 2 diabetes mellitus with other skin complications; L08.9 - Local infection of the skin and subcutaneous tissue, unspecified (3) S/P CABG x 6 Current visit: Yes Status: Acute Category: Surgical Code(s): Z95.1 - Presence of aortocoronary bypass graft (4) IDDM (insulin dependent diabetes mellitus) Current visit: Yes Status: Chronic Category: Medical Code(s): E11.9 - Type 2 diabetes mellitus without complications; 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 (5) CAD, multiple vessel Current visit: No Status: Acute Category: Medical Code(s): I25.10 - Atherosclerotic heart disease of [place] coronary artery without angina pectoris (6) Gangrene of toe of left foot Current visit: Yes Status: Acute Category: Medical Code(s): I96 - Gangrene, not elsewhere classified (7) History of amputation of right great toe Current visit: Yes Status: Acute Category: Medical Code(s): Z89.411 - Acquired absence of right great toe (8) Equinus contracture of left ankle Current visit: Yes Status: Acute Category: Medical Code(s): M24.572 - Contracture, left ankle (9) Amputation of one or more toes Current visit: Yes Status: Acute Category: Medical Code(s): S98.139A - Complete traumatic amputation of one unspecified lesser toe, initial encounter - Assessment and plan all Dx Assessment and Plan for all problems:: BASED ON PATIENT FACTORS, RECOMMEND CONTINUING VANCOMYCIN 1500 MG IV Q12H. PHARMACY WILL CONTINUE TO MONITOR DAILY AND ADJUST APPROPRIATE.
--- NOTE | 2020-02-01 08:09 | Progress Note ---
<Karli Preston - Last Filed: 02/01/20 08:07> Internal Medicine - PN: Subj *Date: 02/01/20 *Time: 08:07 Interval history: Patient states he is feeling well this morning other than having pain in his foot. His glucose levels are still elevated. He states he slept well and ate a good breakfast this morning. Exam Vital signs and Labs for Last 24 Hours: Temp Pulse Resp BP Pulse Ox 97.8 F 70 17 126/64 97 02/01/20 04:00 02/01/20 04:00 02/01/20 04:00 02/01/20 04:00 02/01/20 04:00 Laboratory Results - last 24 hr 01/30/20 20:26: POC Glucose 397 H* 01/31/20 05:37: POC Glucose 198 H 01/31/20 06:45: ESR > 140 H 01/31/20 06:45: Hemoglobin A1c 9.3 H 01/31/20 11:20: POC Glucose 301 H* 01/31/20 12:55: Vancomycin Trough 15.0 H 01/31/20 16:28: POC Glucose 345 H* 01/31/20 20:11: POC Glucose 374 H* 02/01/20 05:42: POC Glucose 424 H* I & O for Last 24 hours: Intake & Output 01/29/20 01/30/20 01/31/20 02/01/20 11:59 11:59 11:59 11:59 Intake Total 256 / 256 3989 / 3989 3203 / 3203 Output Total 1000 / 1000 1150 / 1150 3550 / 3550 Balance -744 / -744 2839 / 2839 -347 / -347 Weight 164 lb 163 lb 2.273 oz 163 lb 2.273 oz Microbiology Reports for the Last 24 Hours: Microbiology 01/30/20 12:51 Foot,Left Gram Stain - Final 01/30/20 12:51 Foot,Left Wound Culture - Preliminary Gram Positive Cocci 01/29/20 21:44 Blood Blood Culture - Preliminary NO GROWTH AFTER 48 HOURS 01/29/20 21:44 Blood Blood Culture - Preliminary NO GROWTH AFTER 48 HOURS 01/30/20 12:51 Foot,Left - Wound Gram Stain - Final 01/30/20 12:51 Foot,Left - Wound Surgical Biopsy Culture - Preliminary NO GROWTH AFTER 24 HOURS 01/30/20 12:51 Foot,Left - Wound Gram Stain - Final 01/30/20 12:51 Foot,Left - Wound Surgical Biopsy Culture - Preliminary NO GROWTH AFTER 24 HOURS 01/30/20 10:30 Foot,Left - Wound Gram Stain - Final 01/30/20 10:30 Foot,Left - Wound Wound Culture - Preliminary - Constitutional no acute distress - *Routine Respiratory Exam Present: CTA bilaterally - *Routine Cardiovascular Exam Present: RRR - *Routine Abdominal Exam Present: soft, normoactive bowel sounds. Absent: tenderness - *Routine Extremities Exam Present: edema (LLE, left foot with dressing in place). Absent: cyanosis, clubbing - *Routine Skin Exam Present: warm. Absent: rash - *Routine Neurological Exam Present: alert, oriented X3 Assessment and Plan (1) Cellulitis and abscess of foot Current visit: Yes Status: Acute Category: Medical Code(s): L03.119 - Cellulitis of unspecified part of limb; L02.619 - Cutaneous abscess of unspecified foot (2) Diabetic foot infection Current visit: Yes Status: Acute Category: Medical Code(s): E11.628 - Type 2 diabetes mellitus with other skin complications; L08.9 - Local infection of the skin and subcutaneous tissue, unspecified (3) S/P CABG x 6 Current visit: Yes Status: Acute Category: Surgical Code(s): Z95.1 - Presence of aortocoronary bypass graft (4) IDDM (insulin dependent diabetes mellitus) Current visit: Yes Status: Chronic Category: Medical Code(s): E11.9 - Type 2 diabetes mellitus without complications; Z79.4 - retirement (current) use of insulin (5) CAD, multiple vessel Current visit: No Status: Acute Category: Medical Code(s): I25.10 - Atherosclerotic heart disease of [place] coronary artery without angina pectoris (6) Gangrene of toe of left foot Current visit: Yes Status: Acute Category: Medical Code(s): I96 - Gangr [place], not elsewhere classified (7) History of amputation of right great toe Current visit: Yes Status: Acute Category: Medical Code(s): Z89.411 - Acquired absence of right great toe (8) Equinus contracture of left ankle Current visit: Yes Status: Acute Category: Medical Code(s): M24.572 - Contracture, left ankle (9) Amputation of one or more toes Current visit: Yes Status: Acute Category: Medical Code(s): S98.139A - Complete traumatic amputation of one unspecified lesser toe, initial encounter - Assessment and plan all Dx Assessment and Plan for all problems:: Podiatry to continue to follow. Will discuss further care with Dr. Loza. Patient's glucose is still elevated. <Quinten Loza - Last Filed: 02/01/20 10:13> Internal Medicine - PN: Subj *Date: 02/01/20 *Time: 10:12 Exam Vital signs and Labs for Last 24 Hours: Temp Pulse Resp BP Pulse Ox 98.4 F 71 17 124/59 L 97 02/01/20 08:00 02/01/20 08:00 02/01/20 08:00 02/01/20 08:00 02/01/20 08:00 Laboratory Results - last 24 hr 01/30/20 20:26: POC Glucose 397 H* 01/31/20 05:37: POC Glucose 198 H 01/31/20 11:20: POC Glucose 301 H* 01/31/20 12:55: Vancomycin Trough 15.0 H 01/31/20 16:28: POC Glucose 345 H* 01/31/20 20:11: POC Glucose 374 H* 02/01/20 05:42: POC Glucose 424 H* 02/01/20 08:56: POC Glucose 266 H I & O for Last 24 hours: Intake & Output 01/29/20 01/30/20 01/31/20 02/01/20 23:59 23:59 23:59 23:59 Intake Total 195 / 1951 4428 / 4428 1068 / 1068 Output Total 1000 / 1000 3900 / 3900 800 / 800 Balance 952 / 952 528 / 528 268 / 268 Weight 164 lb 163 lb 2.273 oz 163 lb 2.273 oz 163 lb 2.273 oz Microbiology Reports for the Last 24 Hours: Microbiology 01/30/20 12:51 Foot,Left - Wound Gram Stain - Final 01/30/20 12:51 Foot,Left - Wound Surgical Biopsy Culture - Preliminary 01/30/20 12:51 Foot,Left - Wound Gram Stain - Final 01/30/20 12:51 Foot,Left - Wound Surgical Biopsy Culture - Preliminary 01/30/20 10:30 Foot,Left - Wound Gram Stain - Final 01/30/20 10:30 Foot,Left - Wound Wound Culture - Preliminary Gram Positive Cocci Gram Positive Cocci#2 01/30/20 12:51 Foot,Left Gram Stain - Final 01/30/20 12:51 Foot,Left Wound Culture - Preliminary Gram Positive Cocci 01/29/20 21:44 Blood Blood Culture - Preliminary NO GROWTH AFTER 48 HOURS 01/29/20 21:44 Blood Blood Culture - Preliminary NO GROWTH AFTER 48 HOURS Assessment and Plan (1) Cellulitis and abscess of foot Current visit: Yes Status: Acute Category: Medical Code(s): L03.119 - Cellulitis of unspecified part of limb; L02.619 - Cutaneous abscess of unspecified foot (2) Diabetic foot infection Current visit: Yes Status: Acute Category: Medical Code(s): E11.628 - Type 2 diabetes mellitus with other skin complications; L08.9 - Local infection of the skin and subcutaneous tissue, unspecified (3) S/P CABG x 6 Current visit: Yes Status: Acute Category: Surgical Code(s): Z95.1 - Presence of aortocoronary bypass graft (4) IDDM (insulin dependent diabetes mellitus) Current visit: Yes Status: Chronic Category: Medical Code(s): E11.9 - Type 2 diabetes mellitus without complications; Z79.4 - retirement (current) use of insulin (5) CAD, multiple vessel Current visit: No Status: Acute Category: Medical Code(s): I25.10 - Atherosclerotic heart disease of [place] coronary artery without angina pectoris (6) Gangrene of toe of left foot Current visit: Yes Status: Acute Category: Medical Code(s): I96 - [place], not elsewhere classified (7) History of amputation of right great toe Current visit: Yes Status: Acute Category: Medical Code(s): Z89.411 - Acquired absence of right great toe (8) Equinus contracture of left ankle Current visit: Yes Status: Acute Category: Medical Code(s): M24.572 - Contracture, left ankle (9) Amputation of one or more toes Current visit: Yes Status: Acute Category: Medical Code(s): S98.139A - Complete traumatic amputation of one unspecified lesser toe, initial encounter - Assessment and plan all Dx Assessment and Plan for all problems:: Saw patient, agree with above note.
--- NOTE | 2020-02-01 08:50 | Progress Note ---
Subjective Date: 02/01/20 Time: 08:30 Principal diagnosis: Left DM infx, cellulitis, gangrene Interval history: Patient is resting comfortably in bed. He reports some pain to the left foot. He denies N/V, F/C, SOB/CP. PN: Obj Ex Vital signs: Temp Pulse Resp BP Pulse Ox 98.4 F 71 17 124/59 L 97 02/01/20 08:00 02/01/20 08:00 02/01/20 08:00 02/01/20 08:00 02/01/20 08:00 - Constitutional no acute distress - Routine HEENT Exam Head: Present: normocephalic - Routine Neck Exam Present: supple - Routine Cardiovascular Exam Present: RRR - Routine Abdominal Exam Present: soft - Routine Extremities Exam Present: edema. Absent: calf tenderness - Detailed Lower Extremity Exam Top foot image: 1 - L 1-3rd toe amps with sutures clean dry and intact. Sutures intact to posterior leg, over Achilles. Edema and erythema improving. No malodor or drainage noted. No calf or thigh pain. Pedal pulses palpable. Skin temp warm. - Routine Skin Exam Present: erythema, dry, warm, scars, wounds. Absent: gangrene - Routine Neurological Exam Present: alert, oriented X3 - Routine Psychiatric Exam Present: normal affect Progress Note: A&P (1) Cellulitis and abscess of foot Status: Acute Current Visit: Yes (2) Diabetic foot infection Status: Acute Current Visit: Yes (3) S/P CABG x 6 Status: Acute Current Visit: Yes (4) IDDM (insulin dependent diabetes mellitus) Status: Chronic Current Visit: Yes (5) CAD, multiple vessel Status: Acute Current Visit: No (6) Gangrene of toe of left foot Status: Acute Current Visit: Yes (7) History of amputation of right great toe Status: Acute Current Visit: Yes (8) Equinus contracture of left ankle Status: Acute Current Visit: Yes (9) Amputation of one or more toes Status: Acute Current Visit: Yes Assessment and Plan for All Diagnoses:: S/p left 1-3rd toe amputation, tendo Achilles lengthening, application of antibiotic beads Sx: 01/30/20, POD #2 Intra-Op bone and wound cultures, 01/30/2020: pending Dressing change at the bedside today by myself. Overall the foot looks much better with improving erythema and edema. No malodor noted. Sutures are intact to the amputation site and the VANDANA site. He will need to wear the short fracture boot and be nonweightbearing with the walker. He states that he has a walker at his sister's house. He feels comfortable to use the walker. He will stay at his sister's home during post op. Patient can only put weight in the boot to the heel when getting out of bed to help transition. Plan for DM shoes out patient. 1. Continue IV vanco, zosyn while in patient 2. Maintain dressing clean dry and intact to left foot 3. Non weight bearing to the left lower extremity with DME assistance (walker) 4. Elevate on one pillow 5. Continue incentive spirometer 6. Use short fracture boot, may remove while in bed 7. Rx needed for [place] 7.5/325, Zyvox 600mg po x 2 weeks 8. Ok to discharge from Podiatry stand point 9. Follow up outpatient with Podiatry, [facility] 02/06/20 @[id number]
--- NOTE | 2020-02-01 12:03 | Discharge Summary ---
General - General Admission date:: 01/29/20 Discharge date: 02/01/20 HPI HPI: Mr. Eaton is a 64-year-old male with a history of coronary artery disease and diabetes mellitus who presented to [facility] emergency room after noticing bloody drainage from the left foot. He states he began having problems last week when his foot got wet at work. He noticed blisters and began to put steroid cream on it. He said the nail on the second toe did come off. He denies having any pain and no fever. He has noticed some edema of the leg. Patient receives his health care in [place]. 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 He has had a recent bypass surgery about 3 to 4 months ago with previous stents years ago. He states his blood sugars fluctuate. This a.m. he is comfortable. He has slept. He states his leg/foot does not hurt. He is n.p.o. Dr. Corado is supposed to see him this morning. Hospital Course Hospital Course: The patient's initial foot x-ray showed no bony pathology. He had a CT of the foot showing widespread inflammation and edema throughout the soft tissues but no acute bone pathology. He also had an extremity arterial study which showed dampened pressures on the right and left thigh but pulses normal bilaterally. He had a chest x-ray showing nothing acute. He was seen in consultation by Dr. Corado and she discussed conservative versus surgical treatment options. She received medical clearance to proceed with surgery and planned for a left first through third toe amputation along with a left incision and drainage and a left tendo Achilles lengthening. The procedure was performed on 01/30/2020 and she placed antibiotic beads in the area as well. The patient had a repeat foot x-ray showing postoperative changes associated with amputations of the first through third digits. The patient did have some residual pain in his left lower leg and foot, but the pain medication did help. He was able to eat without problems. He was up with a walker nonweightbearing with help. He was continued on vancomycin and piperacillin IV as well as IV fluids. Dr. Corado changed the dressings daily and felt he should continue to be nonweightbearing on the left lower extremity. She also planned for him to be able to take IV Orbactiv 1 dose before discharge. The patient continued to do well other than some elevated glucose levels. His wound cultures are currently growing gram-positive cocci but final results are pending. His blood cultures showed no growth. He was stable to be discharged home on Zyvox twice daily for 2 weeks as well as [place] 7.5 mg as needed for pain. He will follow-up with Dr. Corado in 5 days as well as with his primary MD in 2 weeks. Objective Vital signs: Temp Pulse Resp BP Pulse Ox 98.4 F 71 17 124/59 L 97 02/01/20 08:00 02/01/20 08:00 02/01/20 08:00 02/01/20 08:00 02/01/20 08:00 Narrative: - Constitutional no acute distress - Routine Chest/Breast/Axilla Exam Comments: Midsternal postsurgical chest wound well-healed. - *Routine Respiratory Exam Present: CTA bilaterally (Anteriorly and posteriorly) - *Routine Cardiovascular Exam Present: RRR - *Routine Abdominal Exam Present: soft, normoactive bowel sounds. Absent: tenderness, distended - *Routine Extremities Exam Comments: Right foot without edema and no calf tenderness. Left lower extremity with some edema. Dressing on left foot is clean and dry. - *Routine Neurological Exam Present: alert, oriented X3 Results Labs on day of discharge: Labs from last 24 hours 02/01/20 02/01/20 01/31/20 08:56 05:42 20:11 POC Glucose 266 H 424 H* 374 H* Vancomycin Trough 01/31/20 01/31/20 01/31/20 16:28 12:55 05:37 POC Glucose 345 H* 198 H Vancomycin Trough 15.0 H 01/30/20 20:26 POC Glucose 397 H* Vancomycin Trough Preliminary micro results at discharge 01/30/20 12:51 Surgical Biopsy Culture - Preliminary Foot,Left - Wound 01/30/20 12:51 Surgical Biopsy Culture - Preliminary Foot,Left - Wound 01/30/20 10:30 Wound Culture - Preliminary Foot,Left - Wound Gram Positive Cocci Gram Positive Cocci#2 01/30/20 12:51 Wound Culture - Preliminary Foot,Left Gram Positive Cocci 01/29/20 21:44 Blood Culture - Preliminary Blood NO GROWTH AFTER 48 HOURS 01/29/20 21:44 Blood Culture - Preliminary Blood NO GROWTH AFTER 48 HOURS DS: Diagnosis - Discharge Diagnosis (1) Cellulitis and abscess of foot Status: Acute (2) Diabetic foot infection Status: Acute (3) S/P CABG x 6 Status: Acute (4) IDDM (insulin dependent diabetes mellitus) Status: Chronic (5) CAD, multiple vessel Status: Acute (6) Gangrene of toe of left foot Status: Acute (7) History of amputation of right great toe Status: Acute (8) Equinus contracture of left ankle Status: Acute (9) Amputation of one or more toes Status: Acute Discharge Plan - Patient Discharge Instructions ACTIVITY: Continue current activity DIET: continue same diet Additional Instructions: Wound care per Dr. Corado Patient Instructions: How to Take Care of Your Feet If You Have Diabetes, DI for Cellulitis -- Adult, DI for Toe or Foot Amputation, Carbohydrate-Counting Diet - Follow up Plan Follow up with: Quinten Loza MD [Primary Care Provider] - 02/07/20 10:00 am Kaitlin Corado DPM [Staff Physician] - 02/06/20 9:20 am Unknown provider or service follow up:: Primary MD in 2 weeks Disposition: Home, Self-Mcc Medications: Home Medications Medication Instructions Recorded Confirmed Type Aspirin [Aspirin EC 325mg Tab] 325 mg PO DAILY 08/17/19 01/30/20 History Glimepiride 4 mg PO BID 08/17/19 01/30/20 History Metformin HCl [Metformin 1000mg 1,000 mg PO BID 08/17/19 01/30/20 History Tablets] Omeprazole 20 mg PO BID 08/17/19 01/30/20 History lisinopriL [Lisinopril 5mg 5 mg PO DAILY 08/17/19 01/30/20 History Tablet] atorvastatin 80 mg tablet 80 mg PO DAILY 10/10/19 01/30/20 History furosemide 40 mg tablet 40 mg PO DAILY 10/10/19 01/30/20 History insulin glargine 100 unit/mL (3 40 unit SQ BID ml 10/10/19 01/30/20 History mL) subcutaneous pen metoprolol tartrate 25 mg tablet 25 mg PO TID tab 10/10/19 01/30/20 History potassium chloride 20 mEq 20 meq PO DAILY 10/10/19 01/30/20 History tablet,extended release Cetirizine HCl 10 mg PO DAILY 01/30/20 01/30/20 History Hydrocodone/Acetaminophen 1 each PO BIDP PRN 01/30/20 01/30/20 History [Hydrocodon-Acetaminoph 7.5-325] Hydrocodone/Acetaminophen [[place] 1 tab PO Q4H PRN #15 tab 02/01/20 Rx 7.5-325 Tablet] Linezolid [Zyvox 600mg Tablets] 600 mg PO BID #28 tab 02/01/20 Rx Prescriptions/Medication Reconciliation: New Hydrocodone/Acetaminophen [[place] 7.5-325 Tablet] 1 tab PO Q4H PRN #15 tab PRN Reason: Moderate To Severe Pain Linezolid [Zyvox 600mg Tablets] 600 mg PO BID #28 tab Continued insulin glargine 100 unit/mL (3 mL) subcutaneous pen 40 unit SQ BID ml furosemide 40 mg tablet 40 mg PO DAILY metoprolol tartrate 25 mg tablet 25 mg PO TID tab potassium chloride 20 mEq tablet,extended release 20 meq PO DAILY atorvastatin 80 mg tablet 80 mg PO DAILY Omeprazole 20 mg PO BID Metformin HCl [Metformin 1000mg Tablets] 1,000 mg PO BID lisinopriL [Lisinopril 5mg Tablet] 5 mg PO DAILY Glimepiride 4 mg PO BID Aspirin [Aspirin EC 325mg Tab] 325 mg PO DAILY Hydrocodone/Acetaminophen [Hydrocodon-Acetaminoph 7.5-325] 1 each PO BIDP PRN PRN Reason: PAIN Cetirizine HCl 10 mg PO DAILY - Problem Reconciliation Problems Reviewed?: Yes
== END 2020-02-01 15:27 | disposition home or self-care (01) | DRG 256 ==
LOC: ER 21:18 → 2ND 23:17
PROVIDERS: ADMIT Family Medicine; ATTEND Family Medicine
DX: I25.10 Atherosclerotic heart disease of native coronary artery without angina pectoris; E11.52 Type 2 diabetes mellitus with diabetic peripheral angiopathy with gangrene; E11.628 Type 2 diabetes mellitus with other skin complications; M86.172 Other acute osteomyelitis, left ankle and foot; B95.1 Streptococcus, group B, as the cause of diseases classified elsewhere; E11.69 Type 2 diabetes mellitus with other specified complication; Z95.5 Presence of coronary angioplasty implant and graft; L03.032 Cellulitis of left toe; Z95.1 Presence of aortocoronary bypass graft; B95.62 Methicillin resistant Staphylococcus aureus infection as the cause of diseases classified elsewhere; I96 Gangrene, not elsewhere classified; Z79.4 Long term (current) use of insulin; E11.65 Type 2 diabetes mellitus with hyperglycemia; I10 Essential (primary) hypertension; Z87.891 Personal history of nicotine dependence; Z79.899 Other long term (current) drug therapy; M67.02 Short Achilles tendon (acquired), left ankle; Z89.411 Acquired absence of right great toe; L08.9 Local infection of the skin and subcutaneous tissue, unspecified
CPT/HCPCS: 36415; 71020; 71046; 73630; 73700; 80048; 80053; 80202; 82962; 83036; 83605; 85025; 85651; 86140; 87040; 87070; 87075; 87077; 87186; 87205; 88305; 88311; 90471; 90714; 93005; 93923; 96365; 97110; 97161; 99284; C1713; J2405; J2543; J3370

== ENCOUNTER → 2020-02-06 10:28 | Outpatient (CLI) | payer MEDICARE, OTHER, SELFPAY | PROVIDERS: Visit Provider Podiatrist | DX: Z98.890 Other specified postprocedural states (principal); L03.116 Cellulitis of left lower limb | CPT/HCPCS: 87070; 87205 ==

== ENCOUNTER → 2020-02-13 11:12 | Outpatient (CLI) | payer MEDICARE, OTHER, SELFPAY ==
--- NOTE | 2020-02-13 11:19 | XR_ITS ---
PROCEDURE: XR FOOT WT BEARING LT 3V CLINICAL INDICATION: POST-OP Follow-up surgery COMPARISON: FTL3 FOOT-LT-3 VIEWS from 01/15/2016 FTR3 FOOT-RT-3 VIEWS from 04/29/2016 XR FOOT LT MIN 3V from 01/29/2020 XR FOOT LT MIN 3V from 01/30/2020 FINDINGS: There has been amputation at the 1st 2nd and 3rd metatarsophalangeal joints. Dissolving antibiotic beads are present at the amputation site. No bony destructive process evident. The joint spaces are well-preserved. No significant degenerative/arthritic changes. No erosive changes evident. Other findings:None. IMPRESSION: Status post amputation at the 1st 2nd and 3rd metatarsophalangeal junction with no bony erosive process apparent Dictated by: Robbie Ochoa MD 02/13/2020 14:44 Electronically signed by Robbie Ochoa MD in [place] 02/13/2020 14:44
== END ==
PROVIDERS: Visit Provider Podiatrist
DX: Z98.890 Other specified postprocedural states (principal); S98.132A Complete traumatic amputation of one left lesser toe, initial encounter; E11.628 Type 2 diabetes mellitus with other skin complications; L08.9 Local infection of the skin and subcutaneous tissue, unspecified; L03.116 Cellulitis of left lower limb; Z79.4 Long term (current) use of insulin
CPT/HCPCS: 73630

== ENCOUNTER → 2020-02-14 08:16 | Outpatient (CLI) | payer MEDICARE, OTHER, SELFPAY ==
[2020-02-14 09:19] LABS: Basophils % 0.3 % (0.1-2.0); Eosinophils # 0.1 K/mm3 (0.0-0.4); Eosinophils % 1.1 % (0.1-12.0); Hematocrit 35.6 % (42.0-52.0); Lymphocytes % 12.3 % (10-50); Mean Corpuscular HGB Conc 30.9 g/dL (31.8-35.4); Mean Corpuscular Hemoglobin 24.6 pg (27.0-31.2); Mean Corpuscular Volume 79.6 fl (80-94); Mean Platelet Volume 7.8 fl (7.4-10.4); Monocytes # 0.2 K/mm3 (0.1-1.0); Monocytes % 2.8 % (1.7-9.3); Neutrophils # 6.5 K/mm3 (1.8-7.8); Neutrophils % 83.5 % (37.0-80.0); Platelet Count 209 K/mm3 (142-424); Red Blood Count 4.48 M/mm3 (4.60-6.20); Red Cell Distribution Width 15.7 % (11.5-17.5); White Blood Count 7.8 K/mm3 (4.8-10.8)
[2020-02-14 14:57] LABS: C-Reactive Protein 3.1 mg/L (0-4)
== END ==
PROVIDERS: Visit Provider Podiatrist
DX: Z98.890 Other specified postprocedural states (principal); S98.132A Complete traumatic amputation of one left lesser toe, initial encounter
CPT/HCPCS: 36415; 85025; 86140

== ENCOUNTER → 2020-02-20 13:54 | Outpatient (CLI) | payer MEDICARE, OTHER, SELFPAY ==
[2020-02-20 14:21] LABS: Erythrocyte Sedimentation Rate 49 mm/hr (0-20)
== END ==
PROVIDERS: Visit Provider Podiatrist
DX: E11.628 Type 2 diabetes mellitus with other skin complications (principal); L08.9 Local infection of the skin and subcutaneous tissue, unspecified; Z79.4 Long term (current) use of insulin
CPT/HCPCS: 36415; 85651

== ENCOUNTER → 2020-03-05 10:55 | Outpatient (CLI) | payer MEDICARE, OTHER, SELFPAY ==
--- NOTE | 2020-03-05 11:05 | XR_ITS ---
PROCEDURE: XR FOOT WT BEARING LT 3V CLINICAL INDICATION: post-op Follow-up surgery COMPARISON: No exams were available for comparison FINDINGS: Prior amputation at the 1st 2nd and 3rd metatarsophalangeal joint. Previously noted antibiotic beads have mostly dissolved. There is some faint density noted along the distal aspect of the 3rd metatarsal on the AP view and may be artifactual. No bony erosive process evident. IMPRESSION: Follow-up amputation. No change with no acute finding Dictated by: Robbie Ochoa MD 03/05/2020 13:24 Electronically signed by Robbie Ochoa MD in [place] 03/05/2020 13:24
== END ==
PROVIDERS: Visit Provider Podiatrist
DX: G89.18 Other acute postprocedural pain (principal); Z98.890 Other specified postprocedural states; M79.672 Pain in left foot
CPT/HCPCS: 73630

== ENCOUNTER 2020-03-28 09:41 | Emergency (ER) | payer MEDICARE, OTHER, SELFPAY ==
[2020-03-28 09:50] VITALS: BP 136/76; PULSE 70; RESP 18; TEMP 36.7; O2SAT 100; BMI 26.6
--- NOTE | 2020-03-28 10:16 | HMH.EDGENADL ---
ED Disposition Clinical Impression: Left foot pain Disposition: Home, Self-Care Condition on Discharge: Good Additional Instructions: Start wearing your orthopedic boot again. Follow-up with Dr. Corado in the office as scheduled. Continue current medications. Referrals: Sergey Bobo MD [Primary Care Provider] - - Critical Care Critical Care Time: No Attestation: On 03/28/20, the high probability of a clinically significant, sudden or life threatening deterioration of the following system(s) required my full and direct attention, intervention and personal management. The time I documented below is in addition to time spent performing reported procedures but includes the following listed in this critical care notation. Medical Decision Making - Medical Records Medical records reviewed: Yes: I reviewed the patient's medical records. - Jose Inquiry Pt receiving controlled substance: No Vital Signs: 03/28/20 09:50 03/28/20 11:57 Temperature 98.0 F 98.0 F Temperature Source Oral Oral Pulse Rate 70 Pulse Rate [Left Radial] 70 Respiratory Rate 18 18 Blood Pressure 136/76 Blood Pressure [Left Arm] 136/76 Blood Pressure Mean [Left Arm] 96 Blood Pressure Source Automatic Cuff Blood Pressure Source [Left Arm] Automatic Cuff Blood Pressure Position Sitting Blood Pressure Position [Left Arm] Sitting 02 Sat by Pulse Oximetry 100 Oxygen Delivery Method Room Air Room Air - Radiology Data #1 Image(s): Foot/Toes Image Reviewed: Yes I reviewed the patient's radiology image prior amputations, NAD - Physician Consults Physician Consulted: ROOM SERVICE RUNNER for Dr. Corado Time: 10:55 Reason -: Podiatry Eval/Care Comment/Response: Requests x-ray. Offload foot using boot. Follow-up in the office with Dr. Corado. Continue gabapentin and Lortab. General Adult HPI - General Chief complaint: PAIN Stated complaint: left legs nerves jumping Time Seen by Provider: 03/28/20 10:17 Mode of Arrival: Ambulatory Limitations: No Limitations Description of Symptoms (Recalled from ER Triage Doc. by RN): Pt c/o L foot nerve pain . Pt reports feels like his nerves are twitching . Pt reports had 3 toes amputated from L foot by Dr. Corado approx 1 month ago. Pt reports unable to sleep lastnight r/t twitching . Pt states has taken a Lortab and Gabapentin with no relief. - History of Present Illness HPI narrative: Patient complains of intermittent sharp stabbing pains on the plantar aspect of his left foot since yesterday. He describes his pain as nerves jumping but states it is not a muscular contraction or movement it is just a sharp intermittent pain. Pains last about 15 seconds and occur every few minutes. No trauma. No fever. No swelling or redness. He had his first 3 toes of his left foot amputated about a month ago by Dr. Corado. He has not contacted Dr. Corado. He has tried Lortab and gabapentin without relief. - Related Data Home Medications Medication Instructions Recorded Confirmed Glimepiride 4 mg PO BID 08/17/19 03/13/20 Metformin HCl [Metformin 1000mg 1,000 mg PO BID 08/17/19 03/13/20 Tablets] Omeprazole 20 mg PO BID 08/17/19 03/13/20 lisinopriL [Lisinopril 5mg 5 mg PO DAILY 08/17/19 03/13/20 Tablet] atorvastatin 80 mg tablet 80 mg PO DAILY 10/10/19 03/13/20 furosemide 40 mg tablet 40 mg PO DAILY 10/10/19 03/13/20 metoprolol tartrate 25 mg tablet 25 mg PO TID tab 10/10/19 03/13/20 potassium chloride 20 mEq 20 meq PO DAILY 10/10/19 03/13/20 tablet,extended release Cetirizine HCl 10 mg PO DAILY 01/30/20 03/13/20 insulin glargine 100 unit/mL (3 45 unit SQ BID ml 02/06/20 03/13/20 mL) subcutaneous pen aspirin 81 mg chewable tablet 1 tab PO tab 02/13/20 03/13/20 gabapentin 300 mg capsule PO 02/27/20 03/13/20 Allergies Allergy/AdvReac Type Severity Reaction Status Date / Time No Known Allergies Allergy Verified 03/13/20 10:10 [facility] History - Hepatitis A Scr
--- NOTE | 2020-03-28 10:39 | PC.NURSE ---
SPOKE WITH OR STAFF THEY ARE GONNA GO OVER THE PT WITH DR RIVER AND CALL US BACK
--- NOTE | 2020-03-28 10:40 | PC.NURSE ---
DR RIVER ADVISED US HE HAS AHX OF RESTLESS LEG AND THAT DR SEGUNDO COULD CALL [facility] IN HER OFFICE . NOW DR BARBOUR IS SPEAKING TO [facility]
--- NOTE | 2020-03-28 10:59 | XR_ITS ---
PROCEDURE: XR FOOT LT MIN 3V CLINICAL INDICATION: pain Pain, vascular disease COMPARISON: XR FOOT LT MIN 3V from 01/29/2020 XR FOOT LT MIN 3V from 01/30/2020 XR FOOT WT BEARING LT 3V from 02/13/2020 XR FOOT WT BEARING LT 3V from 03/05/2020 FINDINGS: Status post amputation at the 1st 2nd and 3rd MTP joints. No bony erosive process, soft tissue gas, or radiopaque foreign body The joint spaces are well-preserved. No significant degenerative/arthritic changes. No erosive changes evident. Other findings:None. IMPRESSION: No acute finding, status post amputation at the 1st 2nd and 3rd MTP joint Dictated by: Robbie Ochoa MD 03/28/2020 11:54 Electronically signed by Robbie Ochoa MD in [place] 03/28/2020 11:54
[2020-03-28 11:57] VITALS: BP 136/76; PULSE 70; RESP 18; TEMP 36.7; O2SAT 100
== END 2020-03-28 11:58 | disposition home or self-care (01) ==
PROVIDERS: Emergency Provider Emergency Medicine; PCP Emergency Medicine
DX: M79.672 Pain in left foot (principal); Z89.411 Acquired absence of right great toe; E11.9 Type 2 diabetes mellitus without complications; Z79.4 Long term (current) use of insulin; I10 Essential (primary) hypertension; I25.10 Atherosclerotic heart disease of native coronary artery without angina pectoris; K21.9 Gastro-esophageal reflux disease without esophagitis; I25.2 Old myocardial infarction; E78.5 Hyperlipidemia, unspecified; Z79.899 Other long term (current) drug therapy
CPT/HCPCS: 73630; 99282

== ENCOUNTER 2020-07-25 12:16 | Emergency (ER) | payer MEDICARE, OTHER, SELFPAY ==
[2020-07-25 12:17] VITALS: BP 150/70; PULSE 65; RESP 14; TEMP 37.1; O2SAT 98; BMI 25.8
--- NOTE | 2020-07-25 12:43 | XR_ITS ---
PROCEDURE: XR FOOT RT MIN 3V CLINICAL INDICATION: wound Fifth toe pain and swelling COMPARISON: CR FTR3 FOOT-RT-3 VIEWS from 01/15/2016 CR XR FOOT LT MIN 3V from 01/30/2020 CR XR FOOT WT BEARING LT 3V from 02/13/2020 CR XR FOOT WT BEARING LT 3V from 03/05/2020 CR XR FOOT LT MIN 3V from 03/28/2020 FINDINGS: There has been prior amputation at the mid aspect of the 1st metatarsal.. There is an old fracture at the junction of the mid distal shaft of the 2nd metatarsal with prominent bony callus formation. No bony destructive process is evident. Flexion deformity involves the 2nd 3rd 4th and 5th toes. There is a mild amount of calcification in the plantar fascia posteriorly. IMPRESSION: 1. No bony destructive process evident that would indicate acute osteomyelitis. 2. Old the fracture of the 2nd metatarsal with prominent bony callus formation. 3. Prior amputation at the 1st metatarsal Dictated by: Robbie Ochoa MD 07/25/2020 14:36 Robbie Ochoa MD in [place] 07/25/2020 14:36
--- NOTE | 2020-07-25 12:48 | HMH.EDUTC ---
[facility] [place] Disposition Clinical Impression: Diabetic foot infection Disposition: Home, Self-Care Condition on Discharge: Good Instructions: Diabetic Foot Ulcer, DI for Diabetic Foot Ulcer, Clindamycin Additional Instructions: Dressing changes daily as directed by Podiatry Follow up in the Speciality clinic with Podiatry as advised they will call you with appointment Keep foot dry Wear boot as instructed by the Provider Return if needed Straight to ER if any life threatening symptoms Prescriptions: Doxycycline Monohydrate [Doxycycline [place] 100mg Tab] 100 mg PO Q12 14 Days #28 tab Transmission Status: Received by [facility] Referrals: Kailtin Corado DPM [Staff Physician] - Syl Duval APRN [Nurse Practitioner] - Time of Disposition: 13:00 Medical Decision Making - Jose Inquiry Pt receiving controlled substance: No Jose was queried for this patient: No Vital Signs: 07/25/20 12:17 Temperature 98.7 F Temperature Source Oral Pulse Rate [Left] 65 Respiratory Rate 14 Blood Pressure [Right Arm] 150/70 H Blood Pressure Mean [Right Arm] 96 Blood Pressure Source [Right Arm] Automatic Cuff Blood Pressure Position [Right Arm] Sitting 02 Sat by Pulse Oximetry 98 Oxygen Delivery Method Room Air - Lab Data Lab Results 07/25/20 12:50: WBC 5.1, RBC 4.30 L, Hgb 11.5 L, Hct 35.7 L, MCV 82.9, MCH 26.8 L, MCHC 32.3, RDW 15.2, Plt Count 183, MPV 8.9, Neut % (Auto) 67.7, Lymph % (Auto) 22.7, Campbell % (Auto) 7.1, Eos % (Auto) 2.3, Baso % (Auto) 0.3, Neut # (Auto) 3.5, Lymph # (Auto) 1.2, Campbell # (Auto) 0.4, Eos # (Auto) 0.1, Baso # (Auto) 0.0 07/25/20 12:50: Sodium 139, Potassium 4.7, Chloride 100, Carbon Dioxide 27, Anion Gap 16.7 H, BUN 15, Creatinine 0.90, Estimated Creat Clear 76, Estimated GFR 85, Est GFR ( Amer) 102, Glucose 108 H, Calcium 9.5, Total Bilirubin 0.5, AST 48, ALT 39, Alkaline Phosphatase 140 H, Total Protein 7.9, Albumin 4.0, Globulin 3.9 H, Albumin/Globulin Ratio 1.0 L Result diagrams: 07/25/20 12:50 07/25/20 12:50 Orders (Tests/Meds): ORDERS Category Date Time Status XR foot RT min 3V Stat Exams 07/25/20 12:43 Taken C-Reactive Protein Stat Lab 07/25/20 12:50 Results Complete Blood Count Auto Diff Stat Lab 07/25/20 12:50 Results Comprehensive Metabolic Panel Stat Lab 07/25/20 12:50 Results Erythrocyte Sedimentation Rate Stat Lab 07/25/20 12:50 Results Wound Culture and Gram Stain Stat Micro 07/25/20 12:45 Uncollected - Radiology Data #1 Image(s): Foot/Toes Image Reviewed: Yes I reviewed the patient's radiology image Preliminary Findings: No Fracture Seen no acute fracture prior amputation of right great toe - Physician Consults Physician Consulted: Syl Duval Time: 12:25 Reason -: Podiatry Eval/Care Comment/Response: Syl Duval with Podiatry came to office and viewed foot and agreed she was able to asparate small amount of fluid from blister and applied betadine soaked gauze and informed patient to change dressing daily, Requested that we obtain CBC, CMP, ESR, CRP and wound culture along with foot xray for his follow up visit in the clinic and place patient on Clindamycin 300mg q8h x 14 days and they would call him with follow up appointment in the podiatry clinic, Podiatry Clinic called back and advised to change antibiotic from Clinda to Doxy due to last time patient was resistant to clinda Pharmacy notified [facility] [place] HPI - General Stated complaint: sore on rt foot, diabetic Time Seen by Provider: 07/25/20 12:20 Mode of Arrival: Ambulatory Source of Information: Patient Limitations: No Limitations Description of Symptoms (Recalled from Triage Doc. by RN): Pt has blister on the right side of his foot. PT is diabetic. Area is white and moist HEENT Symptoms (Recalled from RN notes): No Resp Symptoms (Recalled from RN notes): No Skin Symptoms (Recalled from RN notes): Yes (blister on the side of foot) MS Symptoms (Recalled from RN notes): No Fu
[2020-07-25 13:03] LABS: Basophils % 0.3 % (0.1-2.0); Eosinophils # 0.1 K/mm3 (0.0-0.4); Eosinophils % 2.3 % (0.1-12.0); Hematocrit 35.7 % (42.0-52.0); Hemoglobin 11.5 g/dL (14.1-18.0); Lymphocytes # 1.2 K/mm3 (0.7-4.5); Lymphocytes % 22.7 % (10-50); Mean Corpuscular HGB Conc 32.3 g/dL (31.8-35.4); Mean Corpuscular Hemoglobin 26.8 pg (27.0-31.2); Mean Corpuscular Volume 82.9 fl (80-94); Mean Platelet Volume 8.9 fl (7.4-10.4); Monocytes # 0.4 K/mm3 (0.1-1.0); Monocytes % 7.1 % (1.7-9.3); Neutrophils # 3.5 K/mm3 (1.8-7.8); Neutrophils % 67.7 % (37.0-80.0); Platelet Count 183 K/mm3 (142-424); Red Cell Distribution Width 15.2 % (11.5-17.5); White Blood Count 5.1 K/mm3 (4.8-10.8)
[2020-07-25 13:09] LABS: Chloride 100 mmol/L (98-107); Potassium 4.7 mmoL/L (3.5-5.1); Sodium 139 mmol/L (136-145)
[2020-07-25 13:12] LABS: Alanine Aminotransferase 39 U/L (12-78); Alkaline Phosphatase 140 U/L (38-126); Anion Gap 16.7 mEq/L (5-15); Aspartate Amino Transferase 48 U/L (17-59); Bilirubin,Total 0.5 mg/dl (0.2-1.3); Blood Urea Nitrogen 15 mg/dl (9-20); Calcium 9.5 mg/dl (8.4-10.2); Carbon Dioxide 27 mmol/L (22.0-30.0); Creatinine Clearance Estimated 76 mL/min (50-200); Estimated Glomerular Filt Rate 85 ml/min (>60); GFR (African American) 102 ML/MIN (>60); Globulin 3.9 g/dL (1.3-3.2); Glucose 108 mg/dl (74-100); Total Protein,Serum 7.9 g/dl (6.3-8.2)
[2020-07-25 13:22] VITALS: BP 134/75; PULSE 78; RESP 16; TEMP 37; O2SAT 98
[2020-07-25 13:26] LABS: Erythrocyte Sedimentation Rate 91 mm/hr (0-20)
== END 2020-07-25 13:23 | disposition home or self-care (01) ==
LOC: UTC 17:16
PROVIDERS: Emergency Provider Nurse Practitioner
DX: E11.628 Type 2 diabetes mellitus with other skin complications (principal); L03.115 Cellulitis of right lower limb; I10 Essential (primary) hypertension; Z87.891 Personal history of nicotine dependence; Z79.899 Other long term (current) drug therapy
CPT/HCPCS: 29515; 73630; 80053; 85025; 85651; 86140; 87070; 87077; 87186; 87205; 99203

== ENCOUNTER → 2020-08-07 15:23 | Outpatient (CLI) | payer MEDICARE, OTHER, SELFPAY ==
[2020-08-07 16:12] LABS: Basophils % 0.5 % (0.1-2.0); Eosinophils # 0.1 K/mm3 (0.0-0.4); Eosinophils % 1.7 % (0.1-12.0); Hematocrit 39.1 % (42.0-52.0); Hemoglobin 12.1 g/dL (14.1-18.0); Lymphocytes # 1.4 K/mm3 (0.7-4.5); Lymphocytes % 24.8 % (10-50); Mean Corpuscular HGB Conc 30.9 g/dL (31.8-35.4); Mean Corpuscular Hemoglobin 25.4 pg (27.0-31.2); Mean Corpuscular Volume 82.3 fl (80-94); Mean Platelet Volume 8.4 fl (7.4-10.4); Monocytes # 0.5 K/mm3 (0.1-1.0); Monocytes % 8.3 % (1.7-9.3); Neutrophils # 3.7 K/mm3 (1.8-7.8); Neutrophils % 64.6 % (37.0-80.0); Platelet Count 189 K/mm3 (142-424); Red Blood Count 4.75 M/mm3 (4.60-6.20); Red Cell Distribution Width 14.6 % (11.5-17.5); White Blood Count 5.7 K/mm3 (4.8-10.8)
[2020-08-07 16:59] LABS: Chloride 98 mmol/L (98-107); Potassium 5.1 mmoL/L (3.5-5.1); Sodium 134 mmol/L (136-145)
[2020-08-07 17:02] LABS: Alanine Aminotransferase 22 U/L (12-78); Albumin Level 3.8 g/dl (3.5-5.0); Albumin/Globulin Ratio 1.1 (1.1-1.8); Alkaline Phosphatase 114 U/L (38-126); Anion Gap 17.1 mEq/L (5-15); Aspartate Amino Transferase 29 U/L (17-59); Bilirubin,Total 0.6 mg/dl (0.2-1.3); Blood Urea Nitrogen 23 mg/dl (9-20); Carbon Dioxide 24 mmol/L (22.0-30.0); Estimated Glomerular Filt Rate 67 ml/min (>60); GFR (African American) 81 ML/MIN (>60); Globulin 3.6 g/dL (1.3-3.2); Total Protein,Serum 7.4 g/dl (6.3-8.2)
[2020-08-07 17:03] LABS: Calcium 9.5 mg/dl (8.4-10.2); Glucose 270 mg/dl (74-100)
[2020-08-07 17:04] LABS: Hemoglobin A1C 8.4 % (4.0-6.0)
[2020-08-07 17:08] LABS: C-Reactive Protein 21.9 mg/L (0-4)
[2020-08-07 18:40] LABS: Erythrocyte Sedimentation Rate 38 mm/hr (0-20)
== END ==
PROVIDERS: Visit Provider Podiatrist
DX: Z51.89 Encounter for other specified aftercare (principal); J32.9 Chronic sinusitis, unspecified; E11.628 Type 2 diabetes mellitus with other skin complications; L08.9 Local infection of the skin and subcutaneous tissue, unspecified
CPT/HCPCS: 36415; 80053; 83036; 85025; 85651; 86140

== ENCOUNTER → 2020-08-11 08:27 | Outpatient (CLI) | payer MEDICARE, OTHER, SELFPAY ==
--- NOTE | 2020-08-11 08:31 | MR_ITS ---
PROCEDURE: MR FOOT RT WO/W CON CLINICAL INDICATION: Evaluate presence of Osteomyelitis Previous removal right great toe with blistering lateral on the distal right foot at the 4th and 5th toe region COMPARISON: CR XR FOOT RT MIN 3V from 07/25/2020 TECHNIQUE: Routine multiplanar multi echo sequences are performed without and with gadolinium enhancement. FINDINGS: There is mild diffuse subcutaneous edema of the foot and ankle. Prior amputation at the distal aspect of the 1st metatarsal. There is cortical widening the midshaft of the 2nd metatarsal consistent with an old fracture. There is a focal area of increased T2 signal involving the mid shaft of the 3rd metatarsal which could be related to a stress fracture. The cortex appears intact. There is some increased T2 signal of the head of the 3rd metatarsal as well which could be related to some underlying degenerative change. There is diffuse increased T2 signal involving the distal shaft and the head of the 5th metatarsal along the plantar surface. Increased T2 signal also noted at the tip of the distal phalanx of the 5th toe. There is thickening of the soft tissues at the 5th toe. A skin defect is present along the plantar surface of the head of the 5th metatarsal. No obvious abscess. IMPRESSION: 1. The findings are compatible with osteomyelitis of the distal aspect of the 5th metatarsal and the distal phalanx of the 5th toe with overlying cellulitis. 2. Focal increased T2 signal of the distal shaft of the 3rd metatarsal which could be due to a stress fracture 3. Prior amputation of the 1st metatarsal distally with an old fracture of the 2nd metatarsal Dictated by: Robbie Ochoa MD 08/14/2020 09:53 Robbie Ochoa MD in [place] 08/14/2020 09:53
== END ==
PROVIDERS: PCP Podiatrist; Visit Provider Podiatrist
DX: E11.621 Type 2 diabetes mellitus with foot ulcer (principal); E11.628 Type 2 diabetes mellitus with other skin complications; L08.9 Local infection of the skin and subcutaneous tissue, unspecified; L97.519 Non-pressure chronic ulcer of other part of right foot with unspecified severity; Z79.4 Long term (current) use of insulin
CPT/HCPCS: 73720; A9576

== ENCOUNTER → 2020-08-14 14:47 | Outpatient (CLI) | payer MEDICARE, OTHER, SELFPAY ==
--- NOTE | 2020-08-14 15:08 | CA_ITS ---
APPROVED REPORT EXAM: Comprehensive 2D, Doppler, and color-flow Echocardiogram Healthcare Business Analyst: Asha Santa RDCS Ht: 5 ft 9 in Wt: 185lbs BSA: 2.00 BP: 107/60 mmHg Indications: PRE OP EVAL, H/O CABG,CAD,COPD,HTN HLP LIMITED EXAM SECONDARY TO POOR ACOUSTIC WINDOWS Left Ventricle Left atrium is mildly enlarged, left ventricle is normal size, mild concentric left ventricular hypertrophy, visually estimated ejection fraction 55% with no regional wall motion abnormality, endocardial surfaces are poorly visualized. Diastolic parameters are inconclusive. Right Ventricle Right atrium and right ventricular mildly enlarged with normal contractility. Aortic Valve Aortic valve is minimally thickened and calcified, there is no aortic stenosis or aortic insufficiency. Mitral Valve Mitral valve is grossly normal, there is mild mitral regurgitation. Tricuspid Valve Tricuspid is grossly normal, there is mild tricuspid regurgitation, tricuspid regurgitation jet velocity is inadequate for calculation of the right ventricular systolic pressure. Pulmonic Valve Pulmonic valve is poorly visualized. Great Vessels Aortic root is normal size. Pericardium No significant pericardial effusion noted. Conclusion 1. Mild biatrial enlargement, normal left ventricular size, mild concentric left ventricular hypertrophy, visually estimated ejection fraction 55% with no regional wall motion abnormality, diastolic parameters are inconclusive. 2. Mildly enlarged right ventricle with normal contractility. 3. Mild mitral and tricuspid regurgitation. 4. No significant pericardial effusion noted. Electronically signed by : Jose Ramon Keenan, 08/14/2020 21:01:28
--- NOTE | 2020-08-14 15:34 | XR_ITS ---
PROCEDURE: XR CHEST 2V CLINICAL HISTORY: HX OF HIGH BLOOD PRESSURE Hypertension ex smoker COMPARISON: CR CXR1 CHEST-PORTABLE from 07/21/[address] ANGIO CHEST from 08/13/2019 CR XR CHEST 2V from 08/13/2019 CR XR CHEST 2V from 01/30/2020 FINDINGS: Prior CABG. Old granulomatous disease. COPD changes. Coronary artery stent is present. The lungs are clear without infiltrates, suspicious nodules, or pleural effusions. No acute bony abnormalities. IMPRESSION: As above, no acute finding Dictated by: Robbie Ochoa MD 08/14/2020 16:33 Robbie Ochoa MD in [place] 08/14/2020 16:33
[2020-08-14 16:35] LABS: Coronavirus 19 IgG Antibody Negative (Negative); Coronavirus 19 IgM Antibody Negative (Negative)
== END ==
PROVIDERS: Visit Provider Podiatrist
DX: Z01.818 Encounter for other preprocedural examination (principal); M86.471 Chronic osteomyelitis with draining sinus, right ankle and foot
CPT/HCPCS: 36415; 71046; 86328; 93306

== ENCOUNTER 2020-08-15 06:55 | Observation (INO) | payer MEDICARE, OTHER, SELFPAY ==
[2020-08-15] VITALS (24 sets, daily range): BP systolic 107–189; BP diastolic 51–88; PULSE 76–98; RESP 14–19; TEMP 36.2–43; O2SAT 92–100; BMI 26.6
[2020-08-15 06:58] LABS: POC Glucose,Bedside 164 (70-110)
--- NOTE | 2020-08-15 07:13 | HMH.ANESCL ---
[facility] Anesthesia Checklist - Patient Identification Patient Identification: Arm Band, Verbal (Name & ) - Structural Data Admitted From: Home Planned Operative Procedure/s: toe amp Consent for Planned Operative Procedure(s) Verified: Yes Verified Documents: History and Physical - NPO Status Verified Time NPO: 00:00 - Chart Verification Results Verified: CBC, BMP - Additional verifications Patient : No Anesthesia Reactions: No Hx Blood Transfusions: No Blood Transfusion Reaction: No Cephalosporin Allergy: No Previous Colonoscopy: No - Cardiovascular Assessment Heart Sounds: S1 & S2 Pulse Strength: Baseline Pulse Rhythm: Regular Peripheral Edema: No - Airway Assessment C-Spine Mobility Assessed: Yes TMJ Mobility Assessed: Yes Dentition: Good Dentition - Neurological Assessment Level of Consciousness: Awake, Alert, Appropriate Hx Seizures: No Numbness or tingling in extremities: No - Anesthesia Plan Anesthesia Risk discussed: Yes ASA Class: III Anesthesia Type: General [facility] History I have reviewed the patient's past medical history: Yes Medical History: Reports:: Atherosclerotic Heart Disease, Coronary Artery Disease, Diabetes Mellitus Type 2, Gastroesophageal Reflux Disease(GERD), Hyperlipidemia, Hypertension, Myocardial Infarction Denies:: Cancer, Diabetes Mellitus Type 1, Internal Pacemaker, MRSA, Seizures *Have you ever received a pneumonia vaccine?: No *Have you received a flu vaccine this season?: Yes Other Medical History: Reports: Arthritis, Cataracts. Denies: Blood Transfusion Reaction Anesthesia experience/problems:: none Other Surgeries: Yes: Cardiac Catheterization, Cardiac Surgery, Coronary Stent, Open Heart Surgery. No: Pacemaker Amputation: Yes (R BIG TOE, l 1-2-3- toes) - *Social History Last grade of school completed: 9th or 10th Smoking Status: Former smoker Tobacco Type: cigarettes # Packs/Day (cigarettes): 4 Alcohol Intake: former Alcohol Intake Frequency:: other Substance Use Type: other *Occupational Status:: disabled Housing: house *Travel in the last 8 weeks: None Family Hx:: Cancer, Coronary Artery Disease
--- NOTE | 2020-08-15 07:37 | XR_ITS ---
PROCEDURE: XR CHEST PORTABLE PICC PLAC CLINICAL HISTORY: Confirm PICC line placement COMPARISON: CT CT ANGIO CHEST from 08/13/2019 CR XR CHEST 2V from 08/13/2019 CR XR CHEST 2V from 01/30/2020 CR XR CHEST 2V from 08/14/2020 FINDINGS: There has been a prior median sternotomy. The lungs are clear without infiltrates, suspicious nodules, or pleural effusions. A PICC line has been inserted by the right subclavian approach. The tip is in satisfactory position in the region of the superior vena cava. There are osteoarthritic changes of the right and left shoulder with subacromial stenosis bilaterally right worse than left IMPRESSION: PICC line tip in good position Dictated by: Robbie Ochoa MD 08/15/2020 14:24 Robbie Ochoa MD in [place] 08/15/2020 14:24
--- NOTE | 2020-08-15 07:38 | HMH.HPDC ---
General - General Admission date:: 08/15/20 Discharge date: 08/16/20 *Admission Date: 08/15/20 *Chief complaint: Right foot DM ulcer, osteomyelitis *History of present illness: Mr. Eaton is a 65-year-old diabetic male who presented with a diabetic ulcer, with osteomyelitis shown on recent MRI. Patient was admitted 08/15/2020 for 23-hour observation following for right partial fifth ray amputation and ulcer excision. Patient was admitted for IV vancomycin. He will need home health care arranged for PICC line placement and IV antibiotics x4-6 weeks for treatment of the bone infection. Patient was previously admitted January [address] Loza was admitting physician at that time. Will consult for medical management. Patient saw Cardiology for ECHO and granted cardiac clearance on 08/14/20. Pre-op labs: ESR, CRP, Ha1c, CBC, CMP, EKG, CXR, covid reviewed. Labs, 08/07/20: wbc 5.7, esr 38, crp 21.9, bun 23, creatinine 1.10, gfr 67, glucose 270, Ha1c 8.4% Patient had surgery 01/30/20 for left 1-3rd toe amputations. He has a history of MRSA. 01/30/20, S/p left 1-3rd toe amputation, VANDANA, paulina of antibiotic beads 01/30/20, intraop WCx: MRSA, group B strep Intra-op bone cx 1-3 toes: MRSA, group B strep Intra-op bone cx 1-3 proximal toes: MRSA, group B strep 02/01/20: Zyvox 600mg po BID x 2 weeks (until 02/15/20) [facility] History I have reviewed the patient's past medical history: Yes Medical History: Reports:: Atherosclerotic Heart Disease, Coronary Artery Disease, Diabetes Mellitus Type 2, Gastroesophageal Reflux Disease(GERD), Hyperlipidemia, Hypertension, Myocardial Infarction Denies:: Cancer, Diabetes Mellitus Type 1, Internal Pacemaker, MRSA, Seizures *Have you ever received a pneumonia vaccine?: No *Have you received a flu vaccine this season?: Yes Other Medical History: Reports: Arthritis, Cataracts. Denies: Blood Transfusion Reaction Anesthesia experience/problems:: none Other Surgeries: Yes: Cardiac Catheterization, Cardiac Surgery, Coronary Stent, Open Heart Surgery. No: Pacemaker Amputation: Yes (Right Partial 1st ray amp, Left 1-2-3- toes) Fractures: Yes (Right 2-3rd metatarsal) - *Social History Last grade of school completed: 9th or 10th Smoking Status: Former smoker Tobacco Type: cigarettes # Packs/Day (cigarettes): 0 Alcohol Intake: former Alcohol Intake Frequency:: other Substance Use Type: other *Occupational Status:: disabled Housing: house *Travel in the last 8 weeks: None Family Hx:: Cancer, Coronary Artery Disease Review of Systems - Review of Systems Review of systems:: pertinent systems reviewed and negative unless documented below - Constitutional Reports fatigue, Denies chills, Denies fever(s) - Eyes Denies blind spots - ENT Denies abnormal hearing - *Cardiovascular Reports shortness of breath with activity, Denies chest pain - *Respiratory Denies change in phlegm color, Denies cough, Denies shortness of breath - *Gastrointestinal Denies abdominal pain, Denies loose stools, Denies nausea, Denies vomiting - *Genitourinary Denies difficulty urinating - *Musculoskeletal Reports joint swelling, Reports numbness - Integumentary/Breasts Reports hair loss, Reports nail changes, Reports skin ulcer, Reports wounds (right sub 5th metatarsal) - *Neurologic Reports tingling/numbness/burning sensations - Psychiatric Denies abnormal sleep pattern - Endocrine Reports increased thirst - Hematologic/Lymphatic Reports easy bruising - Allergic/Immunologic Reports GI upset with certain foods Exam Vital signs and Labs for Last 24 Hours: Temp Pulse Resp BP Pulse Ox 97.2 F L 83 18 189/88 H 99 08/15/20 06:42 08/15/20 06:42 08/15/20 06:42 08/15/20 06:42 08/15/20 06:42 Laboratory Results - last 24 hr 08/15/20 06:45: POC Glucose 164 H I & O for Last 24 hours: Intake & Output 08/12/20 08/13/20 08/14/20 08/15/20 11:59 11:59 11:59 11:59 Weight 180 lb - Constitutional no
--- NOTE | 2020-08-15 07:43 | XR_ITS ---
PROCEDURE: XR FOOT RT 2V CLINICAL INDICATION: PRE AMPUTATION COMPARISON: CR XR FOOT WT BEARING LT 3V from 02/13/2020 CR XR FOOT WT BEARING LT 3V from 03/05/2020 CR XR FOOT LT MIN 3V from 03/28/2020 CR XR FOOT RT MIN 3V from 07/25/2020 FINDINGS: Fluoroscopy time: 2 seconds. Fluoroscopy utilized to ceci surgical site for amputation. IMPRESSION: See above Dictated by: Robbie Ochoa MD 08/15/2020 08:42 Robbie Ochoa MD in [place] 08/15/2020 08:42
--- NOTE | 2020-08-15 08:47 | HMH.OPNOTE ---
Date of procedure: 08/15/20 Pre-op Diagnosis:: 1. Right foot diabetic ulcer 2. Right 5th metatarsal, toe osteomyelitis 3. Right foot diabetic infection 4. History of MRSA Post-op Diagnosis:: Same Procedure performed:: 1. Right partial 5th ray (toe, partial metatarsal) amputation 2. Right foot irrigation and debridement 3. Right foot ulcer excision with delayed primary closure 4. Right foot bone biospy 5. Right foot application of antibiotic beads Surgeon:: Kaitlin Corado DPM RAG CUTTING MACHINE OPERATOR:: Gregorio Meade Anesthesia: GETA, local (30cc 0.5% marcaine plain) Estimated blood loss (mL): 20 Clinical Note:: PRE-OP AMPUTATION/DM RIGHT FOOT INFECTION, SUB 5TH MET ULCER: We discussed conservative versus surgical treatment options. Conservative treatment options include local wound care, oral and IV antibiotics, change in shoe wear, taping/padding, and off-loading. Discussed that patient would benefit from a wider and deeper shoe wear to accommodate the deformity. We discussed surgical intervention for amputation of the infected DM ulcer, 5th toe and partial metatarsal. Patient understands that there is a chance that the toes can migrate to fill the gap or the foot may change shape after surgery. Patient also understands that they could have wound healing complications including delayed healing and infection. We discussed that if the wound does not heal, it is possible that they may need a more proximal amputation and could result in further loss of digits, loss of partial foot or loss of leg. We discussed the risks and benefits in great detail. Other surgical risks include: prolonged pain and swelling, further infection requiring oral or IV antibiotics, delay in healing of soft tissue or bone, nerve or blood vessel damage, CRPS/RSD, DVT, anesthesia complications, and even . All questions answered. Patient verbalized understanding. Consent obtained. Patient saw Cardiology for ECHO and granted cardiac clearance 08/14/20. Pre-op labs: ESR, CRP, Ha1c, CBC, CMP, EKG, CXR, covid reviewed. Labs, 08/07/20: wbc 5.7, esr 38, crp 21.9, bun 23, creatinine 1.10, gfr 67, glucose 270, Ha1c 8.4% Operative findings:: Left foot 1-3rd toe and right partial 1st ray amputation surgical incisions healed. Right foot sub-fifth metatarsal diabetic ulcer. No serous drainage or lashell purulence noted. Pre-debridement sharply excisionally with a 15' blade and forceps, there was medhat wound callus and maceration. The sub-fifth metatarsal ulcer: 70% wound base granular, 30% fibrotic. Did probe deeply to the capsule and the bone. Wound full-thickness, measured 1.3 x 1.1 x 0.7cm. Post debridement measurement: wound excised. No deep purulence, malodor or sinus tracking noted. Right 5th toe bone soft and crumbly. The right 5th metatarsal head is soft with purulence to head, neck. Metatarsal shaft hard in texture and appearance within normal limits at level of the margin. Bleeding noted. Operative note:: On this date and time patient was deemed an appropriate surgical candidate. With informed consent signed, the patient was taken to the operating theater. The patient was positioned supine. General anesthesia was induced. Mid-calf tourniquet used @225mmHg. Pre-op right ankle and forefoot block given with 20 cc 0.5% marcaine plain. Right lower extremity prepped and draped in normal sterile fashion. Right foot wound irrigation and debridement: Attention was directed to the right foot where medhat wound callus and maceration noted to sub 5th metatarsal ulcer. Utilizing a 15 blade and forceps the thick callus and macerated tissue was sharply excisionally debrided from the plantar foot. Right sub 5th metatarsal ulcer excision with delayed primary closure, tissue debridement, 5th partial ray amputation, bone biospy: A 3-1 Hurricane type incision was made surrounding the sub-fifth metatarsal ulcer. Utilizing a 15 blade dissection was carried down sharply full-thickness to the level of the bone, encircling and excisin
--- NOTE | 2020-08-15 08:57 | P.PN_ITS ---
[facility] Anesthesia Record Part I Intake, IV Amount: 550 Estimated blood loss (mL): 10 Urine output (mL): 0 Blood Products used (#): none Blood Pressure: 132/62 SaO2: 92 Pulse Rate: 86 Respiratory Rate: 18 Temperature: 98.1 F Patient is:: Drowsy, Stable Stable to PACU at:: 08:52
--- NOTE | 2020-08-15 09:23 | HMH.PHAVTE ---
[facility] Pharmacy VTE Monitoring - Patient Demographics Admission date: 08/15/20 Report Date: 08/15/20 Time: 09:23 Allergies/Adverse Reactions: Patient Allergies No Known Allergies Allergy (Verified 08/14/20 14:24) Height: 1.75 m Weight: 81.647 kg Patient Problems: Current Active Problems Foot osteomyelitis, right (Acute) Diabetic infection of right foot (Acute) Nail dystrophy (Chronic) Amputation of one or more toes (Chronic) Diabetes mellitus with diabetic neuropathy, with long-term current use of insulin (Chronic) - Prophylaxis VTE Prophylaxis Ordered?: Yes Types of VTE Prophylaxis: IPCS Thigh High Location of Applied Device: Bilateral Lower Extremeties
[2020-08-15 09:41] LABS: POC Glucose,Bedside 107 (70-110)
--- NOTE | 2020-08-15 10:00 | XR_ITS ---
PROCEDURE: XR FOOT RT MIN 3V CLINICAL INDICATION: Post op amp COMPARISON: CR XR FOOT WT BEARING LT 3V from 03/05/2020 CR XR FOOT LT MIN 3V from 03/28/2020 CR XR FOOT RT MIN 3V from 07/25/2020 CR XR FOOT RT 2V from 08/15/2020 FINDINGS: There has been amputation of the mid shaft of the 5th metatarsal. There has been an old amputation at the mid shaft of the 1st metatarsal with an old fracture of the 2nd metatarsal with hammertoe deformity of 2nd 3rd and 4th toes. Antibiotic beads are present in the new amputation bed. Soft tissue swelling is noted and there is bandage artifact. IMPRESSION: Postsurgical changes as described Dictated by: Robbie Ochoa MD 08/15/2020 15:27 Robbie Ochoa MD in [place] 08/15/2020 15:27
--- NOTE | 2020-08-15 10:19 | HMH.ANESII ---
[facility] Anesthesia Record Part II Discharge Time: 09:22 Destination: Medical Surgical Department PACU nurse assessment reviewed?: Yes Patient Condition:: Good Anesthesia Complications:: None Swallowing reflex intact?: Yes Cyanosis?: No Blood Pressure: 141/69 Pulse Rate: 80 Temperature: 98.5 F Mental Status: Alert & Oriented Pain level:: 0 Nausea and/or vomitting:: None Intake, IV Amount: 25
--- NOTE | 2020-08-15 12:25 | HMH.PHAINT ---
home medication reconciliation completed using list from [facility] office and home pharmacy.
--- NOTE | 2020-08-15 14:00 | PC.NURSE ---
PICC line girls at bedside placing PICC in patient's R upper chest.
--- NOTE | 2020-08-15 14:19 | HMH.PTEV ---
Physical Therapy Evaluation Rehab PT IP Evaluation Start: 08/15/20 07:18 Freq: ONCE Status: Active Protocol: Document 08/15/20 13:32 LION (Rec: 08/15/20 14:18 LION [id number]) Subjective/History History History This is the initial evaluation for Alan Eaton, a 65 y/o male s/p Right partial 5th ray amputation and I&D. Pt. had previous surgery which did not heal and had findings of osteomylitis on recent MRI. Pt . is currently being kept for observation. Pt. is to NWB on R LE but is non-complient at this time with multiple VCs given. Note by Al Huertas, SPT Subjective Subjective Pt. reports he lives in an apartment with several stairs to navigate but has B handrail . Pt. states he has a walker and RKS at home. Rehab PT IP Eval Objective Appearance Patient Behavior Appropriate,Cooperative Patient Orientation Place,Name,Birthday,Year Difficulty following instructions mild Speech Pattern Clear,Appropriate Ambulation Patient Able to Ambulate Yes Ambulation Observation IP General Gait Pattern Observation Decrease Weight Bear (R) Ambulation Distance (feet) 3 Ambulation Assistive Device Rolling Walker Ambulation Ability Contact Guard/Hand Hold Balance Ability to Arise Able, uses arms to help Sitting Balance Steady, safe Standing Balance Unsteady Dynamic Sitting Balance Ability Normal Dynamic Standing Balance Ability Fair Transfers Bed Transfer Ability Independent Chair Transfer Ability Independent Sit to Stand Chair Transfer Ability Minimal x 1 (25% assist) Rehab PT IP prob,goals,plan Problems Date of Evaluation: 08/15/20 PT IP Problems Transfers,Gait,Self care, Safety Rehab Potential Rehab Potential Good Equipment Needs Assistive Devices Rolling / Wheeled Walker Plan PT Intervention Plan Transfers,Gait,Self care, Safety,Therapeutic Exercise PT Plan Frequency BID Duration LOS Discharge Goals Bed Transfer Ability Independent Sit to Stand Chair Transfer Ability Supervision/Stand by,Contact Guard/Hand Hold Ambulation Assistive Device Rolling
--- NOTE | 2020-08-15 15:09 | SW/DCPLANNER ---
HAVE AN ORDER TO SET UP HOME HEALTH AND IV ANTIBIOTICS FOR THIS PATIENT WHO WILL BE DISCHARGING [facility]... WILL SEE PATIENT IN THE AM AND SET UP WITH HOME HEALTH AGENCY PER PATIENT REQUEST...
[2020-08-15 17:02] LABS: POC Glucose,Bedside 245 (70-110)
--- NOTE | 2020-08-15 17:05 | HMH.ACPN2 ---
Internal Medicine - PN: Subj *Date: 08/15/20 *Time: 17:05 Interval history: Asked by Dr. Corado to see patient for post op medical management. He has done well since surgery. He currently has no complaints Exam Vital signs and Labs for Last 24 Hours: Temp Pulse Resp BP Pulse Ox 98.4 F 83 16 110/58 L 97 08/15/20 15:35 08/15/20 15:35 08/15/20 15:35 08/15/20 15:35 08/15/20 15:35 Laboratory Results - last 24 hr 08/15/20 06:45: POC Glucose 164 H 08/15/20 09:32: POC Glucose 107 08/15/20 16:55: POC Glucose 245 H Vital Signs - 24 hr 08/15/20 06:42 08/15/20 08:52 08/15/20 08:57 Temperature 97.2 F L 98.1 F 98.1 F Pulse Rate 86 Pulse Rate [Right Brachial] 83 86 Respiratory Rate 18 18 18 Blood Pressure 132/62 Blood Pressure [Left Arm] 132/62 Blood Pressure [Right Arm] 189/88 H 02 Sat by Pulse Oximetry 99 92 L 08/15/20 09:02 08/15/20 09:12 08/15/20 09:22 Temperature 98.1 F 98.1 F 98.1 F Pulse Rate Pulse Rate [Right Brachial] 78 79 77 Respiratory Rate 19 18 18 Blood Pressure Blood Pressure [Left Arm] 131/64 109/69 L 119/66 Blood Pressure [Right Arm] 02 Sat by Pulse Oximetry 93 L 94 L 93 L 08/15/20 09:32 08/15/20 09:37 08/15/20 09:52 Temperature 98.5 F 98.5 F 98.9 F Pulse Rate Pulse Rate [Right Brachial] 80 82 87 Respiratory Rate 19 14 18 Blood Pressure Blood Pressure [Left Arm] 141/69 H 117/62 161/78 H Blood Pressure [Right Arm] 02 Sat by Pulse Oximetry 98 98 95 08/15/20 10:05 08/15/20 10:15 08/15/20 10:20 Temperature 98.8 F 98.5 F Pulse Rate Pulse Rate [Right Brachial] 87 92 H Respiratory Rate 19 18 Blood Pressure Blood Pressure [Left Arm] 136/72 115/62 Blood Pressure [Right Arm] 02 Sat by Pulse Oximetry 94 L 95 95 08/15/20 10:21 08/15/20 10:35 08/15/20 11:05 Temperature 98.5 F 98.0 F 98.0 F Pulse Rate 80 Pulse Rate [Right Brachial] 98 H 91 H Respiratory Rate 18 18 Blood Pressure 141/69 H Blood Pressure [Left Arm] 116/62 119/60 Blood Pressure [Right Arm] 02 Sat by Pulse Oximetry 95 94 L 08/15/20 11:35 08/15/20 12:05 08/15/20 12:35 Temperature 98.1 F 97.9 F 98.0 F Pulse Rate Pulse Rate [Right Brachial] 89 86 90 Respiratory Rate 18 16 18 Blood Pressure Blood Pressure [Left Arm] 110/51 L 107/64 L 123/64 Blood Pressure [Right Arm] 02 Sat by Pulse Oximetry 100 93 L 100 08/15/20 13:35 08/15/20 14:35 08/15/20 15:35 Temperature 98.3 F 98.1 F 98.4 F Pulse Rate Pulse Rate [Right Brachial] 87 82 83 Respiratory Rate 19 18 16 Blood Pressure Blood Pressure [Left Arm] 110/65 119/66 110/58 L Blood Pressure [Right Arm] 02 Sat by Pulse Oximetry 100 96 97 I & O for Last 24 hours: Intake & Output 08/12/20 08/13/20 08/14/20 08/15/20 23:59 23:59 23:59 23:59 Intake Total 1575 / 1575 Output Total 800 / 800 Balance 775 / 775 Weight 180 lb - Constitutional no acute distress - *Routine HEENT Exam Head: Present: normocephalic Eye: Present: EOMI, PERRL ENT: Present: mucous membranes moist - *Routine Neck Exam Present: supple. Absent: lymphadenopathy - *Routine Respiratory Exam Present: CTA bilaterally - *Routine Cardiovascular Exam Present: RRR - *Routine Abdominal Exam Present: soft, normoactive bowel sounds. Absent: tenderness - *Routine Extremities Exam Absent: edema - *Routine Skin Exam Present: warm - *Routine Neurological Exam Present: alert, oriented X3 Assessment and Plan (1) Foot osteomyelitis, right Status: Acute Category: Medical Code(s): M86.9 - Osteomyelitis, unspecified (2) Diabetic infection of right foot Status: Acute Category: Medical Code(s): E11.628 - Type 2 diabetes mellitus with other skin complications; L08.9 - Local infection of the skin and subcutaneous tissue, unspecified (3) Diabetic ulcer of right foot Status: Resolved Qualifiers: Diabetic foot ulcer location: other Diabetes mellitus type: type 2 Non-pres
--- NOTE | 2020-08-15 18:45 | PC.NURSE ---
A&OX4. PT HAS TOLERATED ROOM AIR WELL THROUGHOUT SHIFT. RESPIRATIONS REGULAR AND UNLABORED. LUNG SOUNDS BILATERALLY CLEAR. NO COUGH NOTED. HAND CELLOPHANE BAG MACHINE OPERATOR EQUAL. +2 PULSES NOTED THROUGHOUT. ACTIVE BOWEL SOUNDS HEARD THROUGHOUT. SOFT AND NONTENDER ABDOMEN. LAST BM REPORTED LAST NIGHT. PT VOIDS PER URINAL. CLEAR YELLOW URINE NOTED. PT HAD 1 GUEST TODAY. NO REPORTS OF PAIN THROUGHOUT SHIFT. DRESSING NOTED TO L FOOT. CDI. PT WAS EDUCATED ON HOW TO USE INCENTIVE SPIROMETER AND ENCOURAGED TO USE IT 10 TIMES EVERY HOUR WHILE AWAKE. PT'S PERSONAL BEST NOTED AT 2,000. PT HAS REMAINED NONWEIGHT BEARING ON R FOOT. PT IS CURRENTLY LYING IN BED RESTING. CALL LIGHT WITHIN REACH. BED IN LOWEST POSITION. VSS. WILL CONTINUE TO MONITOR.
--- NOTE | 2020-08-15 19:15 | PC.NURSE ---
report given to azael
[2020-08-15 21:43] LABS: POC Glucose,Bedside 265 (70-110)
[2020-08-16] VITALS: BP 100/49; PULSE 61; RESP 16; TEMP 36.8; O2SAT 96
--- NOTE | 2020-08-16 03:09 | PC.NURSE ---
Pt is alert and oriented x4. Pt rested well with eyes closed most of this shift. Minimal c/o pain at beginning of shift. Rated pain a 5/10 on pain scale. Administered [place] x1 per DEC thus far for pain relief. Upon reassessment pt states decreased pain, rating now a 3/10 on pain scale. PERRLA. Cap refill < 3 seconds. Bilateral hand budget and policy analyst noted equal and strong. Bilateral breath sounds noted clear t/o upon auscultation. RR noted even and unlabored. Tolerated RA well with no c/o SOA. Encouraged use of incentive spirometer this shift while awake. Pt demonstrated appropriate use. Active bowel sounds noted in all 4 quads upon auscultation. Denies BM this shift. Adequate urine ouput noted per urinal at bedside. Urine noted clear and bright yellow in color. SCUDS to LLE in place. Dsg to RLE noted c/d/i. No edema noted. VSS. Remains safe. Call light within reach. Will continue to monitor.
[2020-08-16 04:00] VITALS: BP 101/57; PULSE 61; RESP 16; TEMP 36.6; O2SAT 95
[2020-08-16 05:27] VITALS: BMI 24.7
[2020-08-16 05:46] LABS: POC Glucose,Bedside 145 (70-110)
[2020-08-16 06:58] LABS: Basophils % 0.3 % (0.1-2.0); Eosinophils # 0.2 K/mm3 (0.0-0.4); Eosinophils % 2.9 % (0.1-12.0); Hematocrit 32.4 % (42.0-52.0); Hemoglobin 9.8 g/dL (14.1-18.0); Lymphocytes % 14.9 % (10-50); Mean Corpuscular HGB Conc 30.2 g/dL (31.8-35.4); Mean Corpuscular Hemoglobin 24.8 pg (27.0-31.2); Mean Corpuscular Volume 82.2 fl (80-94); Mean Platelet Volume 8.7 fl (7.4-10.4); Monocytes # 0.6 K/mm3 (0.1-1.0); Neutrophils # 4.7 K/mm3 (1.8-7.8); Neutrophils % 72.9 % (37.0-80.0); Platelet Count 149 K/mm3 (142-424); Red Blood Count 3.95 M/mm3 (4.60-6.20); Red Cell Distribution Width 15.1 % (11.5-17.5); White Blood Count 6.5 K/mm3 (4.8-10.8)
[2020-08-16 07:05] LABS: Chloride 101 mmol/L (98-107); Potassium 4.4 mmoL/L (3.5-5.1); Sodium 134 mmol/L (136-145)
[2020-08-16 07:08] LABS: Alanine Aminotransferase 28 U/L (12-78); Albumin Level 3.4 g/dl (3.5-5.0); Alkaline Phosphatase 92 U/L (38-126); Anion Gap 11.4 mEq/L (5-15); Aspartate Amino Transferase 37 U/L (17-59); Bilirubin,Total 0.6 mg/dl (0.2-1.3); Blood Urea Nitrogen 20 mg/dl (9-20); Calcium 8.6 mg/dl (8.4-10.2); Carbon Dioxide 26 mmol/L (22.0-30.0); Creatinine Clearance Estimated 78 mL/min (50-200); Estimated Glomerular Filt Rate 84 ml/min (>60); GFR (African American) 102 ML/MIN (>60); Globulin 3.4 g/dL (1.3-3.2); Glucose 137 mg/dl (74-100); Total Protein,Serum 6.8 g/dl (6.3-8.2)
[2020-08-16 07:13] LABS: C-Reactive Protein 43.2 mg/L (0-4)
[2020-08-16 07:18] VITALS: BP 125/53; PULSE 67; RESP 20; TEMP 36.9; O2SAT 98
--- NOTE | 2020-08-16 07:33 | SW/DCPLANNER ---
Addendum entered by Leeann Cantrell 08/16/20 10:05: PATIENTS DOSE OF DAPTOMYCIN HAS BEEN CHANGED AND I HAVE CLARIFIED IT ON AN OUT PATIENT ORDER TO [facility]... Original Note: WENT IN TO SEE PATIENT THIS MORNING TO DISCUSS DISCHARGE PLANNING AND TO SEE WHO HE WISHES TO USE....HE STATED HE HAS USED [facility] IN THE PAST AND WISHES TO USE THEM AGAIN.. HE WILL GET HIS FIRST DOSE OF MEDICINE PRIOR TO LEAVING AND I WILL HAVE A WALKER DELIVERED TO THE HOSPITAL PRIOR TO DISCHARGE... HE WILL BE SEEN THIS MORNING TO CONFIRM HIS DISCHARGE PLANS, HE STATED HE HAS A CAR HERE BUT FAMILY IS COMING TO DRIVE IT HOME...
[2020-08-16 08:00] VITALS: BP 125/53; PULSE 67; RESP 20; TEMP 36.9; O2SAT 98
[2020-08-16 08:18] LABS: Erythrocyte Sedimentation Rate 78 mm/hr (0-20)
--- NOTE | 2020-08-16 09:16 | PC.NURSE ---
PER DR. RIVER, PATIENT IS TO USE A STANDARD WALKER AND A BOOT FOR MINOR AMBULATION. PATIENT IS NON WEIGHT BEARING FOR RIGHT FOOT.
[2020-08-16 11:46] VITALS: BP 126/56; PULSE 68; RESP 20; TEMP 36.8; O2SAT 97
--- NOTE | 2020-08-16 13:38 | PC.NURSE ---
PATIENT REQUESTED FOR HE TO BE ALLOWED TO DRIVE SELF HOME. THIS RN INFORMED PATIENT THAT HE SHOULD NOT DUE TO HIS REQUEST FOR PAIN MEDICATION. PATIENT STATED, WELL I DRIVE ALL THE TIME WITH THIS BOOT AND THE MEDICATION SHOULD BE OUT OF MY SYSTEM BY 2PM THIS RN AGAIN ENCOURAGED PATIENT TO PHONE SOMEONE FOR A RIDE. PATIENT VERBALIZED AN UNDERSTANDING AND PHONED HIS SISTER. THIS RN REMOVED OLD DRESSING FROM UPPER RIGHT ARM PICC LINE. USING ASEPTIC TECHNIQUE, THIS RN CLEANED AREA AND APPLIED NEW DRESSING. PATIENT TOLERATED WELL. NO OTHER CONCERNS OR NEEDS AT THIS TIME.
== END 2020-08-16 12:40 | disposition home health service (06) ==
LOC: 2ND 07:10
PROVIDERS: Admitting Provider Podiatrist; Visit Provider Podiatrist
PROC: (CPT 20240; principal; 2020-08-15 07:30)
DX: E11.621 Type 2 diabetes mellitus with foot ulcer (principal); L97.514 Non-pressure chronic ulcer of other part of right foot with necrosis of bone; Z79.4 Long term (current) use of insulin; E11.69 Type 2 diabetes mellitus with other specified complication; M86.171 Other acute osteomyelitis, right ankle and foot; I25.10 Atherosclerotic heart disease of native coronary artery without angina pectoris; I10 Essential (primary) hypertension; Z95.5 Presence of coronary angioplasty implant and graft; Z87.891 Personal history of nicotine dependence; Z89.422 Acquired absence of other left toe(s)
CPT/HCPCS: 20240; 28810; 36569; 71045; 73620; 73630; 76000; 80053; 82962; 85025; 85651; 86140; 87070; 87077; 87102; 87186; 87205; 87206; 88307; 88311; 96374; 97161; C1713; C1751; G0378; J0878; J3370

== ENCOUNTER → 2020-08-30 12:46 | Outpatient (CLI) | payer MEDICARE, OTHER, SELFPAY ==
[2020-08-30 14:20] LABS: Basophils % 0.7 % (0.1-2.0); Eosinophils # 0.2 K/mm3 (0.0-0.4); Eosinophils % 4.1 % (0.1-12.0); Hematocrit 31.3 % (42.0-52.0); Hemoglobin 10.1 g/dL (14.1-18.0); Lymphocytes # 1.1 K/mm3 (0.7-4.5); Lymphocytes % 28.8 % (10-50); Mean Corpuscular HGB Conc 32.4 g/dL (31.8-35.4); Mean Corpuscular Volume 80.3 fl (80-94); Mean Platelet Volume 9.3 fl (7.4-10.4); Monocytes # 0.4 K/mm3 (0.1-1.0); Monocytes % 10.9 % (1.7-9.3); Neutrophils # 2.2 K/mm3 (1.8-7.8); Neutrophils % 55.4 % (37.0-80.0); Platelet Count 145 K/mm3 (142-424); Red Cell Distribution Width 15.8 % (11.5-17.5); White Blood Count 3.9 K/mm3 (4.8-10.8)
[2020-08-30 14:44] LABS: Erythrocyte Sedimentation Rate 82 mm/hr (0-20)
[2020-08-30 14:58] LABS: Chloride 104 mmol/L (98-107)
[2020-08-30 14:59] LABS: Potassium 4.6 mmoL/L (3.5-5.1); Sodium 135 mmol/L (136-145)
[2020-08-30 15:01] LABS: Alanine Aminotransferase 36 U/L (12-78); Aspartate Amino Transferase 42 U/L (17-59); Blood Urea Nitrogen 17 mg/dl (9-20); Estimated Glomerular Filt Rate 113 ml/min (>60); GFR (African American) 137 ML/MIN (>60)
[2020-08-30 15:02] LABS: Albumin Level 3.5 g/dl (3.5-5.0); Alkaline Phosphatase 108 U/L (38-126); Anion Gap 15.6 mEq/L (5-15); Bilirubin,Total 0.5 mg/dl (0.2-1.3); Calcium 8.8 mg/dl (8.4-10.2); Carbon Dioxide 20 mmol/L (22.0-30.0); Creatine Kinase 42 U/L (55-170); Globulin 3.5 g/dL (1.3-3.2); Glucose 232 mg/dl (74-100)
[2020-08-30 15:07] LABS: C-Reactive Protein 3.5 mg/L (0-4)
[2020-08-30 15:45] LABS: Hemoglobin A1C 8.1 % (4.0-6.0)
== END ==
PROVIDERS: Visit Provider Podiatrist
DX: Z98.890 Other specified postprocedural states (principal); S98.132A Complete traumatic amputation of one left lesser toe, initial encounter; E11.628 Type 2 diabetes mellitus with other skin complications; L08.9 Local infection of the skin and subcutaneous tissue, unspecified; Z79.4 Long term (current) use of insulin
CPT/HCPCS: 80053; 82550; 83036; 85025; 85651; 86140

== ENCOUNTER → 2020-09-11 11:22 | Outpatient (CLI) | payer MEDICARE, OTHER, SELFPAY ==
--- NOTE | 2020-09-11 11:28 | XR_ITS ---
PROCEDURE: XR FOOT WT BEARING RT 3V CLINICAL INDICATION: POST-OP Follow-up surgery COMPARISON: CR XR FOOT LT MIN 3V from 03/28/2020 CR XR FOOT RT MIN 3V from 07/25/2020 CR XR FOOT RT 2V from 08/15/2020 CR XR FOOT RT MIN 3V from 08/15/2020 FINDINGS: Follow-up status post amputation at the mid shaft of the 5th metatarsal. Previously noted antibiotic beads are no longer apparent. There is some faint density noted at the tip of the amputation site and may be related to developing soft tissue calcification. There is an old 2nd metatarsal fracture with abundant callus formation. There has been prior amputation at the mid aspect of the 1st metatarsal. Hammertoe deformity is present at the 2nd 3rd and 4th toes. There is some calcification along the plantar fascia. IMPRESSION: Postsurgical changes as described above. Dictated by: Robbie Ochoa MD 09/11/2020 12:33 Robbie Ochoa MD in [place] 09/11/2020 12:33
== END ==
PROVIDERS: PCP Nurse Practitioner Family; Visit Provider Podiatrist
DX: Z98.890 Other specified postprocedural states (principal)
CPT/HCPCS: 73630

== ENCOUNTER 2020-09-25 09:55 | Outpatient (CLI) | payer MEDICARE, OTHER, SELFPAY | END 2020-09-25 10:15 | disposition home or self-care (01) | LOC: INF 10:04 | PROVIDERS: Visit Provider Nurse Practitioner | DX: M86.171 Other acute osteomyelitis, right ankle and foot (principal); S98.132A Complete traumatic amputation of one left lesser toe, initial encounter; Z45.2 Encounter for adjustment and management of vascular access device | CPT/HCPCS: G0463 ==

== ENCOUNTER → 2020-10-09 09:52 | Outpatient (CLI) | payer MEDICARE, OTHER, SELFPAY ==
[2020-10-09 10:26] LABS: Basophils % 0.5 % (0.1-2.0); Eosinophils # 0.1 K/mm3 (0.0-0.4); Hematocrit 36.7 % (42.0-52.0); Hemoglobin 11.8 g/dL (14.1-18.0); Lymphocytes # 1.4 K/mm3 (0.7-4.5); Lymphocytes % 29.1 % (10-50); Mean Corpuscular HGB Conc 32.1 g/dL (31.8-35.4); Mean Corpuscular Hemoglobin 24.8 pg (27.0-31.2); Mean Corpuscular Volume 77.2 fl (80-94); Mean Platelet Volume 9.2 fl (7.4-10.4); Monocytes # 0.4 K/mm3 (0.1-1.0); Monocytes % 8.8 % (1.7-9.3); Neutrophils # 2.9 K/mm3 (1.8-7.8); Neutrophils % 59.6 % (37.0-80.0); Platelet Count 179 K/mm3 (142-424); Red Blood Count 4.76 M/mm3 (4.60-6.20); Red Cell Distribution Width 15.6 % (11.5-17.5); White Blood Count 4.8 K/mm3 (4.8-10.8)
[2020-10-09 10:27] LABS: Chloride 102 mmol/L (98-107); Sodium 138 mmol/L (136-145)
[2020-10-09 10:28] LABS: Potassium 5.1 mmoL/L (3.5-5.1)
[2020-10-09 10:30] LABS: Alanine Aminotransferase 36 U/L (12-78); Alkaline Phosphatase 144 U/L (38-126); Anion Gap 17.1 mEq/L (5-15); Aspartate Amino Transferase 51 U/L (17-59); Bilirubin,Total 0.8 mg/dl (0.2-1.3); Blood Urea Nitrogen 36 mg/dl (9-20); Carbon Dioxide 24 mmol/L (22.0-30.0); Estimated Glomerular Filt Rate 67 ml/min (>60); GFR (African American) 81 ML/MIN (>60)
[2020-10-09 10:31] LABS: Albumin Level 4.7 g/dl (3.5-5.0); Calcium 10.2 mg/dl (8.4-10.2); Globulin 4.5 g/dL (1.3-3.2); Glucose 221 mg/dl (74-100); Total Protein,Serum 9.2 g/dl (6.3-8.2)
[2020-10-09 10:52] LABS: Erythrocyte Sedimentation Rate 23 mm/hr (0-20)
[2020-10-09 10:56] LABS: C-Reactive Protein 3.1 mg/L (0-4)
== END ==
PROVIDERS: Visit Provider Podiatrist
DX: J32.9 Chronic sinusitis, unspecified (principal); Z98.890 Other specified postprocedural states
CPT/HCPCS: 36415; 80053; 85025; 85651; 86140

== ENCOUNTER 2021-08-13 11:00 | Outpatient (RCR) | payer MEDICARE, OTHER, SELFPAY | END 2021-09-19 15:53 | disposition home or self-care (01) | LOC: PT.CARL 11:00 | PROVIDERS: PCP Nurse Practitioner Family; Visit Provider Nurse Practitioner Family | DX: M25.511 Pain in right shoulder (principal); M47.816 Spondylosis without myelopathy or radiculopathy, lumbar region; M54.2 Cervicalgia | CPT/HCPCS: 97012; 97110; 97140; 97163 ==

== ENCOUNTER → 2021-11-27 09:47 | Outpatient (CLI) | payer MEDICARE, OTHER, SELFPAY ==
--- NOTE | 2021-11-27 10:07 | XR_ITS ---
FINAL REPORT CLINICAL HISTORY: DM ulcer evaluation FINDINGS: RIGHT FOOT Three views of the right foot demonstrate postoperative changes from transmetatarsal amputation of the 1st and 5th metatarsals. There is extensive periosteal reaction related to a healing fracture of the 2nd metatarsal. There is no definite bony erosion. A small plantar spur is present. The soft tissues are unremarkable. IMPRESSION: Postoperative changes as described. Healing fracture of 2nd metatarsal. No definite bony erosion. Reviewed, Interpreted and Dictated by Patrick Martin MD Transcribed by Sivan Malave Authenticated by Patrick Martin MD on 11/27/2021 11:33:16 AM [facility]
--- NOTE | 2021-11-27 10:07 | XR_ITS ---
FINAL REPORT CLINICAL HISTORY: DM ulcer evaluation FINDINGS: LEFT FOOT Three views of the left foot demonstrate no acute fracture or dislocation. There are postoperative changes from amputation of the 1st, 2nd and 3rd digits. There is no definite bony erosion. The visualized joint spaces are normally aligned. The soft tissues are unremarkable. IMPRESSION: Postoperative changes as described. No definite bony erosion. Reviewed, Interpreted and Dictated by Patrick Martin MD Transcribed by Sivan Malave Authenticated by Patrick Martin MD on 11/27/2021 11:33:27 AM [facility]
[2021-11-27 11:07] LABS: Alanine Aminotransferase 33 U/L (12-78); Albumin Level 4.7 g/dl (3.5-5.0); Albumin/Globulin Ratio 1.3 (1.1-1.8); Alkaline Phosphatase 150 U/L (38-126); Anion Gap 16.5 mEq/L (5-15); Aspartate Amino Transferase 36 U/L (17-59); Bilirubin,Total 0.5 mg/dl (0.2-1.3); Blood Urea Nitrogen 25 mg/dl (9-20); Calcium 10.3 mg/dl (8.4-10.2); Carbon Dioxide 27 mmol/L (22.0-30.0); Chloride 100 mmol/L (98-107); Estimated Glomerular Filt Rate 75 ml/min (>60); GFR (African American) 90 ML/MIN (>60); Globulin 3.5 g/dL (1.3-3.2); Glucose 235 mg/dl (74-100); Potassium 4.5 mmoL/L (3.5-5.1); Sodium 139 mmol/L (136-145); Total Protein,Serum 8.2 g/dl (6.3-8.2)
[2021-11-27 11:17] LABS: C-Reactive Protein 8.6 mg/L (0-4)
[2021-11-27 11:20] LABS: Basophils % 0.3 % (0.1-2.0); Eosinophils # 0.1 K/mm3 (0.0-0.4); Eosinophils % 1.7 % (0.1-12.0); Hemoglobin 15.1 g/dL (14.1-18.0); Lymphocytes # 1.3 K/mm3 (0.7-4.5); Lymphocytes % 19.1 % (10-50); Mean Corpuscular HGB Conc 33.6 g/dL (31.8-35.4); Mean Corpuscular Volume 86.3 fl (80-94); Mean Platelet Volume 8.8 fl (7.4-10.4); Monocytes # 0.4 K/mm3 (0.1-1.0); Neutrophils # 4.8 K/mm3 (1.8-7.8); Neutrophils % 72.9 % (37.0-80.0); Platelet Count 147 K/mm3 (142-424); Red Blood Count 5.21 M/mm3 (4.60-6.20); Red Cell Distribution Width 15.2 % (11.5-17.5); White Blood Count 6.6 K/mm3 (4.8-10.8)
[2021-11-27 12:23] LABS: Erythrocyte Sedimentation Rate 30 mm/hr (0-20)
== END ==
PROVIDERS: Visit Provider Nurse Practitioner Family
DX: E11.621 Type 2 diabetes mellitus with foot ulcer (principal); L97.519 Non-pressure chronic ulcer of other part of right foot with unspecified severity; L97.529 Non-pressure chronic ulcer of other part of left foot with unspecified severity; Z79.4 Long term (current) use of insulin
CPT/HCPCS: 36415; 73630; 80053; 85025; 85651; 86140; 87070; 87205

== ENCOUNTER → 2021-12-12 09:54 | Outpatient (CLI) | payer MEDICARE, OTHER, SELFPAY ==
--- NOTE | 2021-12-12 10:04 | XR_ITS ---
FINAL REPORT CLINICAL HISTORY: rt hand pain for months FINDINGS: 3 views of the right hand were obtained. There is no acute fracture or dislocation. There are mild degenerative changes. There is no soft tissue abnormality. IMPRESSION: Mild degenerative change. Reviewed, Interpreted and Dictated by Horacio Solomon III, MD Transcribed by Trevor Barreto Authenticated by Horacio Solomon III, MD on 12/12/2021 11:25:52 AM [facility]
== END ==
PROVIDERS: PCP Family Medicine; Visit Provider Orthopaedic Surgery
DX: M79.641 Pain in right hand (principal)
CPT/HCPCS: 73130

== ENCOUNTER 2022-01-02 09:00 | Outpatient (RCR) | payer MEDICARE, OTHER, SELFPAY ==
--- NOTE | 2021-12-23 09:40 | HMH.PTOPWND ---
Rehab Outpt Wound Evaluation Rehab OP Wound Evaluation Start: 12/23/21 09:31 Freq: Status: Active Protocol: Document 12/23/21 09:31 ABDIVADIM (Rec: 12/23/21 09:40 [email or web address] [id number]) Electronically Signed By Luther Bah, KRYSTYNA 12/23/21 09:31 Subjective/History History History 66 y/o male referred to PT for non-healing DFUs on B feet. Pt has long hx of IDDM w/ multiple wounds on feet, some of which required digital amputations. 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 Yes Wound Length (cm) 1.0 Wound Width (cm) 1.0 Wound Depth (cm) 0.5 Wound Bed Appearance Beefy Red,Yellow Percentage Granulated (%) 50 Percentage of Slough (%) 50 Percentage of Eschar (Yellow) (%) 50 Wound Margins Description Well Defined Drainage Description None Drainage Amount None Drainage Odor No Odor Dressing Status Dry & Intact Wound Topical Solution/Irrigant Antibiotic Irrigant Primary Dressing Silver Dressing Comment tegederm ag mesh Wound Secondary Dressing Type Biosynthetic Dressing, Absorbant Pad Comment purocol, optifoam Dressing Change Date 12/23/21 Dressing Change Patient Tolerance Tolerated Well Right Lateral Distal Foot Wound 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 Yes Wound Length (cm) 1.0 Wound Width (cm) 0.5 Wound Bed Appearance Beefy Red,Yellow Percentage Granulated (%) 90 Percentage of Slough (%) 10 Percentage of Eschar (Yellow) (%) 10 Wound Margins Description Well Defined Drainage Description None Drainage Amount None Drainage Odor No Odor Dressing Status Dry & Intact Wound Topical Solution/Irrigant Antibiotic Irrigant Primary Dressing Silver Dressing Comment tegderm ag mesh Wound Secondary Dressing Type Biosynthetic Dressing, Absorbant Pad Comment purocol, optifoam Wound Debridement Method Sharps Wound Debridement Amount of Tissue Minimal Removed Wound Debridement Result Healthy Tissue Revealed Dressing Change Date 12/23/21 Dressing Change Patient Tolerance Tolerated Well Left Medial Distal Foot
== END 2022-01-02 09:05 | disposition home or self-care (01) ==
LOC: PT 09:00
PROVIDERS: PCP Family Medicine; Visit Provider Podiatrist
DX: E11.621 Type 2 diabetes mellitus with foot ulcer (principal); L97.519 Non-pressure chronic ulcer of other part of right foot with unspecified severity; L97.529 Non-pressure chronic ulcer of other part of left foot with unspecified severity; Z79.4 Long term (current) use of insulin
CPT/HCPCS: 97162; 97597

== ENCOUNTER → 2022-01-08 14:11 | Outpatient (CLI) | payer MEDICARE, OTHER, SELFPAY ==
--- NOTE | 2022-01-08 14:24 | XR_ITS ---
FINAL REPORT CLINICAL HISTORY: Infected foot/wound COMPARISON: November 27, 2021 FINDINGS: RIGHT FOOT Three views were obtained. There are postoperative changes from amputation of the 1st and 5th digits at the distal metatarsals. There is a chronic fracture of the 2nd metatarsal with deformity. There is no acute bony abnormality. There is a small plantar calcaneal spur. There is a calcification in the region of the posterior aponeurosis. IMPRESSION: Findings are stable from the prior exam. Reviewed, Interpreted and Dictated by Horacio Solomon III, MD Transcribed by Sivan Malave Authenticated by Horacio Solomon III, MD on 01/08/2022 04:02:49 PM [facility]
[2022-01-08 15:02] LABS: Basophils % 0.4 % (0.1-2.0); Eosinophils # 0.2 K/mm3 (0.0-0.4); Eosinophils % 1.8 % (0.1-12.0); Hematocrit 42.1 % (42.0-52.0); Hemoglobin 13.7 g/dL (14.1-18.0); Lymphocytes # 1.1 K/mm3 (0.7-4.5); Lymphocytes % 12.1 % (10-50); Mean Corpuscular HGB Conc 32.5 g/dL (31.8-35.4); Mean Corpuscular Hemoglobin 28.5 pg (27.0-31.2); Mean Corpuscular Volume 87.5 fl (80-94); Monocytes # 0.5 K/mm3 (0.1-1.0); Monocytes % 5.7 % (1.7-9.3); Neutrophils # 7.2 K/mm3 (1.8-7.8); Neutrophils % 80.1 % (37.0-80.0); Platelet Count 191 K/mm3 (142-424); Red Blood Count 4.82 M/mm3 (4.60-6.20); Red Cell Distribution Width 15.2 % (11.5-17.5)
[2022-01-08 15:50] LABS: Hemoglobin A1C 9.1 % (4.0-6.0)
[2022-01-08 15:52] LABS: Erythrocyte Sedimentation Rate 58 mm/hr (0-20)
[2022-01-08 16:14] LABS: Alanine Aminotransferase 26 U/L (12-78); Albumin Level 4.5 g/dl (3.5-5.0); Albumin/Globulin Ratio 1.3 (1.1-1.8); Alkaline Phosphatase 149 U/L (38-126); Aspartate Amino Transferase 30 U/L (17-59); Bilirubin,Total 0.6 mg/dl (0.2-1.3); Blood Urea Nitrogen 24 mg/dl (9-20); Carbon Dioxide 27 mmol/L (22.0-30.0); Chloride 97 mmol/L (98-107); Estimated Glomerular Filt Rate 84 ml/min (>60); GFR (African American) 102 ML/MIN (>60); Globulin 3.6 g/dL (1.3-3.2); Glucose 189 mg/dl (74-100); Sodium 136 mmol/L (136-145); Total Protein,Serum 8.1 g/dl (6.3-8.2)
[2022-01-08 16:19] LABS: C-Reactive Protein 30.7 mg/L (0-4)
== END ==
PROVIDERS: Visit Provider Nurse Practitioner Family
DX: Z51.89 Encounter for other specified aftercare (principal); J32.9 Chronic sinusitis, unspecified; E11.628 Type 2 diabetes mellitus with other skin complications; L08.9 Local infection of the skin and subcutaneous tissue, unspecified; Z79.84 Long term (current) use of oral hypoglycemic drugs
CPT/HCPCS: 36415; 73630; 80053; 83036; 85025; 85651; 86140; 87070; 87077; 87186; 87205

== ENCOUNTER 2022-01-13 20:32 | Inpatient (IN) | payer MEDICARE, OTHER, SELFPAY ==
[2022-01-13] VITALS (8 sets, daily range): BP systolic 96–117; BP diastolic 53–70; PULSE 88–120; RESP 20–22; TEMP 37.2; O2SAT 97–99; BMI 22.6
--- NOTE | 2022-01-13 21:00 | CT_ITS ---
PROCEDURE INFORMATION: Exam: CT Right Lower Extremity With Contrast, Foot Exam date and time: 01/13/2022 9:00 PM Age: 66 years old Clinical indication: Swelling, leg or foot; Prior surgery; Additional info: R foot pain, swelling, infection TECHNIQUE: Imaging protocol: CT of the Right lower extremity with intravenous contrast was performed. Exam focused on the foot. Radiation optimization: All CT scans at this facility use at least one of these dose optimization techniques: automated exposure control; mA and/or kV adjustment per patient size (includes targeted exams where dose is matched to clinical indication); or iterative reconstruction. Contrast material: ISOVUE; Contrast volume: 75 ml; Contrast route: IV; COMPARISON: MR FOOT RT WO/W CON 08/11/2020 9:46 AM FINDINGS: Bones/joints: Remote amputation of the 1st ray at the level of the distal metatarsal, with chronic remodeling. Remote fracture deformity of the 2nd metatarsal with hypertrophic callus formation. Chronic remodeling of the distal 3rd metatarsal. Fourth MTP joint effusion. Question subtle erosion involving the articular surface of the base of the 4th toe proximal phalanx. Probable subtle periosteal reaction of the 4th toe proximal phalanx near the base as well. Findings are suspicious for acute/active septic arthritis, and possibly osteomyelitis of the 4th toe proximal phalanx. Chronic amputation of the 5th toe at the level of the mid metatarsal shaft. Small chronic/corticated ossific bodies near the medial malleolus likely related to remote prior trauma. Soft tissues: Deep wound of the plantar forefoot at the level of the 4th metatarsal head. Underlying fluid collection suspicious for abscess measuring 2.6 x 3.4 x 2.6 cm. Multiple foci of gas are seen within the lateral subcutaneous tissues adjacent to the 4th MTP joint, not clearly contained within the abscess, and suspicious for necrotizing soft tissue infection. A few foci of gas are also seen near the 3rd MTP joint, and in the central forefoot at the level of the 2nd metatarsal midshaft. Superficial wound of the plantar midfoot laterally near the base of the 5th metatarsal. No underlying fluid collection identified. Generalized muscle atrophy likely reflecting longstanding denervation. IMPRESSION: 1. Deep plantar forefoot wound with suspected subcutaneous abscess measuring 2.6 x 3.4 x 2.6 cm underlying the 4th metatarsal head. Scattered foci of soft tissue gas within the forefoot are suspicious for necrotizing soft tissue infection. 2. Suspected 4th MTP joint septic arthritis. There could be early acute osteomyelitis of the 4th toe proximal phalanx near its base. 3. Superficial appearing wound of the plantar midfoot laterally, without evidence of underlying fluid collection. THIS REPORT CONTAINS FINDINGS THAT MAY BE CRITICAL TO PATIENT CARE. The findings were verbally communicated via telephone conference with ALEXANDREA FERRARI at 11:30 PM EDT on 01/13/2022. The findings were acknowledged and understood.
[2022-01-13 21:31] LABS: Basophils % 0.2 % (0.1-2.0); Eosinophils % 0.4 % (0.1-12.0); Hemoglobin 11.3 g/dL (14.1-18.0); Lymphocytes # 0.3 K/mm3 (0.7-4.5); Mean Corpuscular HGB Conc 34.3 g/dL (31.8-35.4); Mean Corpuscular Volume 84.6 fl (80-94); Mean Platelet Volume 9.3 fl (7.4-10.4); Monocytes # 0.1 K/mm3 (0.1-1.0); Monocytes % 1.3 % (1.7-9.3); Neutrophils # 8.4 K/mm3 (1.8-7.8); Neutrophils % 95.1 % (37.0-80.0); Platelet Count 177 K/mm3 (142-424); Red Cell Distribution Width 15.3 % (11.5-17.5); White Blood Count 8.8 K/mm3 (4.8-10.8)
--- NOTE | 2022-01-13 21:37 | HMH.EDSKAF ---
ED Disposition Clinical Impression: Cellulitis and abscess of foot, Severe sepsis with acute organ dysfunction, Type 2 diabetes mellitus with diabetic polyneuropathy, with long-term current use of insulin, S/P CABG x 6 Disposition: Admitted As Inpatient Condition on Discharge: Serious Referrals: Provider,Referral, [Primary Care Provider] - - Critical Care Critical Care Time: No Attestation: On 01/13/22, the high probability of a clinically significant, sudden or life threatening deterioration of the following system(s) required my full and direct attention, intervention and personal management. The time I documented below is in addition to time spent performing reported procedures but includes the following listed in this critical care notation. Medical Decision Making - Medical Records Medical records reviewed: Yes: I reviewed the patient's medical records. - Jose Inquiry Pt receiving controlled substance: No Vital Signs: 01/13/22 20:18 Temperature 98.9 F Temperature Source Oral Pulse Rate [Right] 117 H Respiratory Rate 21 Blood Pressure [Right Arm] 117/70 Blood Pressure Mean [Right Arm] 85 Blood Pressure Source [Right Arm] Automatic Cuff 02 Sat by Pulse Oximetry 97 Oxygen Delivery Method Room Air - Lab Data Lab results reviewed: Yes: I reviewed the patient's lab results. Lab Results 01/13/22 21:00: WBC 8.8, RBC 3.90 L, Hgb 11.3 L, Hct 33.0 L, MCV 84.6, MCH 29.0, MCHC 34.3, RDW 15.3, Plt Count 177, MPV 9.3, Neut % (Auto) 95.1 H, Lymph % (Auto) 3.0 L, [place] % (Auto) 1.3 L, Eos % (Auto) 0.4, Baso % (Auto) 0.2, Neut # (Auto) 8.4 H, Lymph # (Auto) 0.3 L, [place] # (Auto) 0.1, Eos # (Auto) 0.0, Baso # (Auto) 0.0, ESR > 140 H 01/13/22 21:00: Sodium 132 L, Potassium 3.7, Chloride 101, Carbon Dioxide 19 L, Anion Gap 15.7 H, BUN 20, Creatinine 0.90, Estimated Creat Clear 70, Estimated GFR 84, Est GFR ( Amer) 102, Glucose 166 H, Calcium 8.3 L, Total Bilirubin 0.9, AST 36, ALT 22, Alkaline Phosphatase 116, C-Reactive Protein 149.0 H, Total Protein 6.8, Albumin 3.4 L, Globulin 3.4 H, Albumin/Globulin Ratio 1.0 L 01/13/22 21:00: Lactate 1.2 01/13/22 21:00: Procalcitonin 9.77 H Result diagrams: 01/13/22 21:00 01/13/22 21:00 Orders (Tests/Meds): ED MEDICATIONS Generic Name Dose Route Start Last Admin Trade Name Freq PRN Reason Stop Dose Admin Sodium Chloride 1,000 mls @ 999 mls/hr 01/13/22 21:15 01/13/22 22:10 Sod Chlor 0.9% 1000ml Bag IV 01/13/22 22:15 999 mls/hr .Q1H1M ELLIOT Administration Discontinued Medications Generic Name Dose Route Start Last Admin Trade Name Freq PRN Reason Stop Dose Admin Iopamidol 75 ml 01/13/22 22:13 01/13/22 22:23 Iopamidol-370 (76%);100ml Bottle IV 01/13/22 22:14 75 ml ONCE ONE Administration Sodium Chloride 10 ml 01/13/22 22:13 01/13/22 22:23 Sodium Chloride 0.9% 10ml Syr (Rad Only) IV 01/13/22 22:14 10 ml ONCE ONE Administration ORDERS Category Date Time Status Complete Blood Count Auto Diff Stat Lab 01/13/22 21:00 Results Erythrocyte Sedimentation Rate Stat Lab 01/13/22 21:00 Results Rapid PCR Covid and Flu A/B Stat Lab 01/13/22 21:03 Ordered Blood Culture Stat Micro 01/13/22 21:00 Ordered Wound Culture and Gram Stain Stat Micro 01/13/22 21:00 Received - CT Data CT Scan: Other (foot) Time Received: 23:[address] Reviewed: Yes: I have viewed the radiologist's interpretation Preliminary Findings: Abnormal (see chart ) Medical Decision Narrative: has abscess - possible osteo rt foot - meets severe sepsis with organ dysfuction Skin/Abscess/FB HPI - General Chief complaint: Extremity Injury, Lower Stated complaint: R/O Osteo in R foot Time Seen by Provider: 01/13/22 21:00 Mode of Arrival: EMS Source of Information: Patient, Relative, EMS, Medical Record Limitations: No Limitations Description of Symptoms (Recalled from ER Triage Doc. by RN): [facility] from [facility] d/t R foot pain swelling, and po
[2022-01-13 21:38] LABS: MANUAL DIFFERENTIAL MANUAL DIFFERENTIAL (MANUAL DIFF)
[2022-01-13 21:47] LABS: Alanine Aminotransferase 22 U/L (12-78); Albumin Level 3.4 g/dl (3.5-5.0); Alkaline Phosphatase 116 U/L (38-126); Anion Gap 15.7 mEq/L (5-15); Aspartate Amino Transferase 36 U/L (17-59); Bilirubin,Total 0.9 mg/dl (0.2-1.3); Blood Urea Nitrogen 20 mg/dl (9-20); Calcium 8.3 mg/dl (8.4-10.2); Carbon Dioxide 19 mmol/L (22.0-30.0); Chloride 101 mmol/L (98-107); Creatinine Clearance Estimated 70 mL/min (50-200); Estimated Glomerular Filt Rate 84 ml/min (>60); GFR (African American) 102 ML/MIN (>60); Globulin 3.4 g/dL (1.3-3.2); Glucose 166 mg/dl (74-100); Lactic Acid 1.2 mmol/L (0.7-2.1); Potassium 3.7 mmoL/L (3.5-5.1); Sodium 132 mmol/L (136-145); Total Protein,Serum 6.8 g/dl (6.3-8.2)
[2022-01-13 21:59] LABS: Erythrocyte Sedimentation Rate > 140 mm/hr (0-20)
[2022-01-13 22:06] LABS: Procalcitonin 9.77 ng/mL (0.0-2.0)
[2022-01-13 23:57] LABS: Eosinophils % 1 % (0-3); Lymphocytes % 3 % (10-50); Neutrophils % 96 % (42-76); Platelet Estimate Normal; RBC Morphology Normal; Total Cells Counted 100
[2022-01-14] VITALS (35 sets, daily range): BP systolic 90–140; BP diastolic 50–105; PULSE 62–99; RESP 12–20; TEMP 36.5–37.2; O2SAT 93–100; BMI 22.7
--- NOTE | 2022-01-14 | IR_ITS ---
APPROVED REPORT Patient Location: Inpatient PROCEDURES Right radial arterial access Catheter placement to the distal abdominal aorta Bilateral iliofemoral runoff Informed consent was obtained prior to the procedure. COMPLICATIONS NONE Estimated Blood Loss: LESS THAN 10 ML TECHNIQUE 1% lidocaine used anesthetize right anterior aspect of the right wrist. The right radial artery was accessed via the Salinger technique and a 6 [place] hydrophilic sheath was placed in the right radial artery. An arterial cocktail using heparin lidocaine verapamil and nitroglycerin were administered. Following this the PV multi curve was placed into the infrarenal abdominal aorta and bilateral iliofemoral runoff was performed. At the end of the procedure the apparatus was removed the sheath was removed and hemostasis was achieved using TR banding patient was transferred to the postop putting a stable addition ANGIOGRAPHIC RESULTS Infrarenal abdominal aorta is widely patent Bilateral common internal and external iliac arteries are patent Bilateral common femoral arteries are patent Bilateral profunda femoris arteries are normal Right superficial femoral artery has a mid vessel concentric 60 to 70% stenosis with additional distal 60 to 70% eccentric stenosis at the popliteal level. Distally the anterior tibialis artery is proximally subtotally occluded while there is two-vessel runoff from the posterior tibialis artery and peroneal artery to the right foot Left superficial femoral artery as a mid vessel diffuse 40 to 50% stenosis which extend down to the popliteal level. Distally the anterior tibialis artery is proximally subtotally occluded while the posterior tibialis artery and peroneal artery are scantly patent into the left foot. IMPRESSION Peripheral artery disease as described above mostly confined to the infrageniculate levels. PLAN 1. At this point percutaneous revascularization would not benefit patient's clinical situation. 2. LDL less than 55 to be achieved with high intensity statin 3. Xarelto 2.5 twice daily plus aspirin 81 mg daily 4. Continue supportive care Electronically signed by : Thiago Tran MD 01/24/2022 13:52:34
--- NOTE | 2022-01-14 00:05 | PC.NURSE ---
Called [facility] for Vanco dosing. s/w Doc, and he will place dosing in DEC.
--- NOTE | 2022-01-14 00:13 | PC.NURSE ---
PATIENT IS CURRENTLY SITTING IN BED EATING A SANDWICH AND CUP OF SOUP.
[2022-01-14 00:34] LABS: Coronavirus 19, PCR Not Detected (NotDetected); Influenza A, PCR Not Detected (NotDetected); Influenza B, PCR Not Detected (NotDetected)
--- NOTE | 2022-01-14 00:41 | PC.NURSE ---
called [facility] to confirm next time for vanco dose. Per kristina it would be 12 hr from inital dose (1500 01/13/22 @ [facility]). He re-timed for 0300 01/14/22.
--- NOTE | 2022-01-14 01:00 | PC.NURSE ---
pt will board in the ER at this time. Bed was changed to a regular hospital bed for comfort. He will remain NPO now d/t Dr. Corado consult and poss surg in AM.
--- NOTE | 2022-01-14 01:30 | PC.NURSE ---
staff from 2nd floor here for Admission questionnaire.
[2022-01-14 04:57] LABS: Basophils % 0.5 % (0.1-2.0); Eosinophils # 0.1 K/mm3 (0.0-0.4); Eosinophils % 0.7 % (0.1-12.0); Hematocrit 29.8 % (42.0-52.0); Lymphocytes # 0.6 K/mm3 (0.7-4.5); Mean Corpuscular HGB Conc 32.4 g/dL (31.8-35.4); Mean Corpuscular Hemoglobin 28.3 pg (27.0-31.2); Mean Corpuscular Volume 87.6 fl (80-94); Monocytes # 0.3 K/mm3 (0.1-1.0); Monocytes % 3.7 % (1.7-9.3); Neutrophils % 87.1 % (37.0-80.0); Platelet Count 156 K/mm3 (142-424); Red Cell Distribution Width 15.1 % (11.5-17.5); White Blood Count 6.9 K/mm3 (4.8-10.8)
[2022-01-14 05:00] LABS: Chloride 109 mmol/L (98-107); Sodium 136 mmol/L (136-145)
[2022-01-14 05:03] LABS: Blood Urea Nitrogen 18 mg/dl (9-20); Carbon Dioxide 19 mmol/L (22.0-30.0); Creatinine Clearance Estimated 70 mL/min (50-200); Estimated Glomerular Filt Rate 84 ml/min (>60); GFR (African American) 102 ML/MIN (>60); Hemoglobin 9.6 g/dL (14.1-18.0)
[2022-01-14 05:04] LABS: Calcium 7.1 mg/dl (8.4-10.2); Glucose 233 mg/dl (74-100)
--- NOTE | 2022-01-14 07:27 | HMH.PHAVTE ---
[facility] Pharmacy VTE Monitoring - Patient Demographics Admission date: 01/14/22 Report Date: 01/14/22 Time: 07:27 Allergies/Adverse Reactions: Patient Allergies No Known Allergies Allergy (Verified 01/08/22 12:56) Height: 1.75 m Weight: 69.4 kg Patient Problems: Current Active Problems Cellulitis and abscess of foot (Acute) Severe sepsis with acute organ dysfunction (Acute) Type 2 diabetes mellitus with diabetic polyneuropathy, with long-term current use of insulin (Acute) S/P CABG x 6 (Chronic) - VTE Risk Labs: VTE Related Lab Results Hgb 9.6 g/dL (14.1-18.0) L D 01/14/22 04:50 Hct 29.8 % (42.0-52.0) L 01/14/22 04:50 Plt Count 156 K/mm3 (142-424) 01/14/22 04:50 BUN 18 mg/dl (9-20) 01/14/22 04:50 Creatinine 0.90 mg/dl (0.66-1.25) 01/14/22 04:50 Estimated Creat Clear 70 mL/min (50-200) 01/14/22 04:50 Was VTE Risk Assessment Performed: Yes VTE Score: 4 VTE Risk Level: Low Risk Clinical Trial Participant: No - Prophylaxis VTE Prophylaxis Ordered?: Yes Types of VTE Prophylaxis: TEDS Knee High
--- NOTE | 2022-01-14 07:35 | HMH.HP ---
*Admission Date: 01/14/22 *Chief complaint: R Foot wound with malodorous drainage *History of present illness: This is a 66-year-old white gentleman who presented to the emergency department at [facility] on 01/13/2022 for right foot cellulitis, wound and edema. The patient states that approximately 3 days ago the wound to his right foot began to worsen and he had significant edema in the right lower extremity with redness and malodorous drainage. As mentioned above the patient presented to the [facility] emergency department for these complaints and then was transferred here to [facility]. The patient has been following with podiatry for wounds to his bilateral feet. He has had multiple debridements and toe amputations on his bilateral lower extremities as well. The patient was evaluated in the podiatry office on 01/08/2022 and his wounds to the bilateral feet were stable. Since that time the patient now has worsening infection to the right foot which shows gas with the abscess (Per Heidi Brady APRN). [facility] History I have reviewed the patient's past medical history: Yes Medical History: Reports:: Atherosclerotic Heart Disease, Coronary Artery Disease, Diabetes Mellitus Type 2, Gastroesophageal Reflux Disease(GERD), Hyperlipidemia, Hypertension, Myocardial Infarction Denies:: Cancer, Diabetes Mellitus Type 1, Internal Pacemaker, MRSA, Seizures *Have you ever received a pneumonia vaccine?: Yes *Have you received a flu vaccine this season?: Yes Other Medical History: Reports: Arthritis, Cataracts. Denies: Blood Transfusion Reaction Other Surgeries: Yes: CABG, Cardiac Catheterization, Cardiac Surgery, Colonoscopy, Coronary Stent, EGD, Open Heart Surgery. No: Pacemaker Amputation: Yes (Right Partial 1st ray amp, Right 5th toe, Left 1-2-3- toes) Fractures: Yes (Right 2-3rd metatarsal) - *Social History Smoking Status: Former smoker Tobacco Type: cigarettes # Packs/Day (cigarettes): 0 Alcohol Intake: never Alcohol Intake Frequency:: other Substance Use Type: other *Occupational Status:: disabled Housing: house Household Members: none *Travel in the last 8 weeks: None Family Hx:: Cancer, Coronary Artery Disease, Heart Attack, Hyperlipidemia, Hypertension Review of Systems - Review of Systems Review of systems:: pertinent systems reviewed and negative unless documented below - Constitutional Denies body ache(s), Denies fatigue - Eyes Denies blurry vision, Denies double vision - ENT Denies difficulty swallowing, Denies mouth lesions - *Cardiovascular Denies chest pain, Denies chest pain with activity - *Respiratory Denies chest congestion, Denies shortness of breath - *Gastrointestinal Denies abdominal pain, Denies change in bowel habits - *Musculoskeletal Reports abnormal walking - Integumentary/Breasts Denies hair loss, Denies yellowing of the skin - *Neurologic Denies headache(s), Denies seizure-like activity - Psychiatric Denies lack of enjoyment, Denies change in appetite - Endocrine Denies cold intolerance, Denies increased thirst - Hematologic/Lymphatic Denies easy bleeding, Denies enlarged lymph nodes - Allergic/Immunologic Denies itchy eyes, Denies wheezing Meds Home Medications Medication Instructions Recorded Confirmed Type Glimepiride 4 mg PO BID 08/17/19 01/14/22 History Metformin HCl [Metformin 1000mg 1,000 mg PO BID 08/17/19 01/14/22 History Tablets] lisinopriL [Lisinopril 5mg 5 mg PO DAILY 08/17/19 01/14/22 History Tablet] furosemide 40 mg tablet 40 mg PO DAILY 10/10/19 01/14/22 History metoprolol tartrate 25 mg tablet 25 mg PO TID tab 10/10/19 01/14/22 History potassium chloride 20 mEq 20 meq PO DAILY 10/10/19 01/14/22 History tablet,extended release Cetirizine HCl 10 mg PO DAILY 01/30/20 01/13/22 History empagliflozin 25 mg tablet 25 mg PO DAILY tab 12/10/20 01/14/22 History gabapentin 600 mg tablet 600 mg PO TID tab 12/10/20 01/14/22
--- NOTE | 2022-01-14 07:50 | PC.NURSE ---
PT in room
--- NOTE | 2022-01-14 08:00 | CA_ITS ---
APPROVED REPORT EXAM: Comprehensive 2D, Doppler, and color-flow Echocardiogram City Supervisor: WARREN Cordova, RVS Ht: 5 ft 9 in Wt: 153lbs BSA: 1.84 BP: 107/61 mmHg Indications: copd, CAD S/P CABG-2019, DM, MURMUR,Right foot abcess Echo Enhancing Agent Comments: Technically limited exam due to limited windows, subxiphoid imaging 2D Dimensions LVDs 2.43 cm LA Volume 52.60 mL Aortic Root 2.85 cm LA Volume Index 28.60 mL/m2 (M/F) 16-34 Left Atrium 3.83 cm M: 3.0 - 4.0 LVOT 1.88 cm (M/F) 1.5-2.5 M-Mode Dimensions RVDd 2.28 cm (0.9-2.6) LVDd 4.70 cm (3.5-5.7) LVDs 3.44 cm (3.5-5.7) IVSd 0.76 cm (0.6-1.1) PWd 1.18 cm (0.6-1.1) EF (Teich) 49.80% FS 25.20% EDV (Teich) 97.30 mL ESV (Teich) 48.80 mL LV Diastology E Decel Time 340.00 (160-240 msec) E/A Ratio 1.71 MED E' 5.70 (< 7 cm/sec) MED A' 4.10 cm/s E'/MED E' Ratio 10.53 (>14) Aortic Valve AO Peak GR. 5.60 mmHg Mitral Valve MV A Velocity 35.00 (40-130 cm/s) E/A Ratio 1.71 MV Decel. Time 340.00 (160-240 ms) Pulmonary Valve PV Peak Velocity 92.00 (50-150 cm/s) MO End VMAX 158.00 cm/s Tricuspid Valve TR P. Velocity 209.00 cm/s RAP Estimate 10.00 mmHg RVSP 27.40 mmHg Left Ventricle Technically very difficult study because of the patient fact in poor acoustic windows. Left atrium is mildly enlarged, left ventricle is normal size, preserved left ventricular systolic function, visually estimated ejection fraction 55% in the obtained views. Diastolic parameters are inconclusive. Right Ventricle Right atrium and right ventricle mildly enlarged with normal contractility. Aortic Valve Aortic valve is thickened and calcified without aortic stenosis or aortic insufficiency. Mitral Valve Mitral valve is grossly normal, there is trace mitral regurgitation. Tricuspid Valve Tricuspid valve is poorly visualized, there is mild tricuspid regurgitation. Tricuspid regurgitation jet velocity is inadequate for calculation of the right ventricular systolic pressure. Pulmonic Valve Pulmonic valve is poorly visualized. Great Vessels Aortic root is normal size. Pericardium No significant pericardial effusion. Inferior vena cava is poorly visualized. Conclusion 1. Technically difficult study because of the patient fact in poor acoustic windows. 2. Mild biatrial enlargement, normal left ventricular size, mild concentric left ventricular hypertrophy, preserved left ventricular systolic function, visually estimated ejection fraction 55% with no regional wall motion abnormality, diastolic parameters are inconclusive. 3. Trace mitral and mild tricuspid regurgitation. 4. No significant pericardial effusion. 5. Inferior vena cava is poorly visualized. Electronically signed by : Jose Ramon Keenan MD 01/14/2022 19:46:31
--- NOTE | 2022-01-14 08:03 | PC.NURSE ---
pt resting in bed, in hospital bed, states no needs at this time, call light within reach. Will continue to monitor
--- NOTE | 2022-01-14 08:13 | HMH.PHAINT ---
Home med rec complete
--- NOTE | 2022-01-14 08:16 | HMH.PHACONS ---
- Pharmacy Consult Date: 01/14/22 Time: 08:16 Referring provider: DR FERRARI Reason for Consult:: VANCOMYCIN DOSING Allergies and ADEs:: Allergies Allergy/AdvReac Type Severity Reaction Status Date / Time No Known Allergies Allergy Verified 01/08/22 12:56 Home Medications:: Home Medications Medication Instructions Recorded Confirmed Type Glimepiride 4 mg PO BID 08/17/19 01/14/22 History Metformin HCl [Metformin 1000mg 1,000 mg PO BID 08/17/19 01/14/22 History Tablets] lisinopriL [Lisinopril 5mg 5 mg PO DAILY 08/17/19 01/14/22 History Tablet] furosemide 40 mg tablet 40 mg PO DAILY 10/10/19 01/14/22 History metoprolol tartrate 25 mg tablet 25 mg PO TID tab 10/10/19 01/14/22 History potassium chloride 20 mEq 20 meq PO DAILY 10/10/19 01/14/22 History tablet,extended release Cetirizine HCl 10 mg PO DAILY 01/30/20 01/13/22 History empagliflozin 25 mg tablet 25 mg PO DAILY tab 12/10/20 01/14/22 History gabapentin 600 mg tablet 600 mg PO TID tab 12/10/20 01/14/22 History atorvastatin 10 mg tablet 10 mg PO HS tab 11/27/21 01/14/22 History hydrocodone 10 mg-acetaminophen 1 tab PO Q6HP PRN tab 11/27/21 01/14/22 History 325 mg tablet mupirocin 2 % topical ointment 1 applic TOPICAL BID 14 Days #15 g 11/27/21 01/14/22 Rx omeprazole 20 mg capsule,delayed 20 mg PO BID cap 11/27/21 01/14/22 History release semaglutide 1 applicatio SQ WEEKLY 11/27/21 01/14/22 History insulin aspar prt-insulin aspart 60 units SQ BID ml 12/12/21 01/14/22 History 100 unit/mL (70-30) subcutaneous soln minocycline 100 mg capsule 100 mg PO Q12H 14 Days #28 cap 01/08/22 01/14/22 Rx Aspirin [Aspirin 81mg EC Tab] 81 mg PO DAILY 01/14/22 01/14/22 History Fluconazole 100 mg PO DAILY 01/14/22 01/14/22 History Height: 1.75 m Weight: 69.4 kg Laboratory Results:: Laboratory Results - last 24 hr 01/13/22 21:00: WBC 8.8, RBC 3.90 L, Hgb 11.3 L, Hct 33.0 L, MCV 84.6, MCH 29.0, MCHC 34.3, RDW 15.3, Plt Count 177, MPV 9.3, Neut % (Auto) 95.1 H, Lymph % (Auto) 3.0 L, [place] % (Auto) 1.3 L, Eos % (Auto) 0.4, Baso % (Auto) 0.2, Neut # (Auto) 8.4 H, Lymph # (Auto) 0.3 L, [place] # (Auto) 0.1, Eos # (Auto) 0.0, Baso # (Auto) 0.0, Total Counted 100, Neutrophils % (Manual) 96 H, Lymphocytes % (Manual) 3 L, Eosinophils % (Manual) 1, Platelet Estimate Normal, RBC Morphology Normal, ESR > 140 H 01/13/22 21:00: Sodium 132 L, Potassium 3.7, Chloride 101, Carbon Dioxide 19 L, Anion Gap 15.7 H, BUN 20, Creatinine 0.90, Estimated Creat Clear 70, Estimated GFR 84, Est GFR ( Amer) 102, Glucose 166 H, Calcium 8.3 L, Total Bilirubin 0.9, AST 36, ALT 22, Alkaline Phosphatase 116, C-Reactive Protein 149.0 H, Total Protein 6.8, Albumin 3.4 L, Globulin 3.4 H, Albumin/Globulin Ratio 1.0 L 01/13/22 21:00: Lactate 1.2 01/13/22 21:00: Procalcitonin 9.77 H 01/14/22 00:25: SARS-CoV-2 (PCR) Not detected, Influenza A Untype (PCR) Not detected, Influenza Type B (PCR) Not detected 01/14/22 04:50: WBC 6.9, RBC 3.40 L, Hgb 9.6 L D, Hct 29.8 L, MCV 87.6, MCH 28.3, MCHC 32.4, RDW 15.1, Plt Count 156, MPV 9.0, Neut % (Auto) 87.1 H, Lymph % (Auto) 8.0 L, [place] % (Auto) 3.7, Eos % (Auto) 0.7, Baso % (Auto) 0.5, Neut # (Auto) 6.0, Lymph # (Auto) 0.6 L, [place] # (Auto) 0.3, Eos # (Auto) 0.1, Baso # (Auto) 0.0 01/14/22 04:50: Sodium 136, Potassium 4.0, Chloride 109 H, Carbon Dioxide 19 L, Anion Gap 12.0, BUN 18, Creatinine 0.90, Estimated Creat Clear 70, Estimated GFR 84, Est GFR ( Amer) 102, Glucose 233 H D, Calcium 7.1 L Medical History: Reports:: Atherosclerotic Heart Disease, Coronary Artery Disease, Diabetes Mellitus Type 2, Gastroesophageal Reflux Disease(GERD), Hyperlipidemia, Hypertension, Myocardial Infarction Denies:: Cancer, Diabetes Mellitus Type 1, Internal Pacemaker, MRSA, Seizures Assessment and Plan - Assessment and plan all Dx Assessment and Plan for all problems:: Pharmacokinetic dosing service Objective: Age
--- NOTE | 2022-01-14 08:22 | PC.NURSE ---
Dr. Corado at [facility]
--- NOTE | 2022-01-14 08:26 | PC.NURSE ---
Dr. Corado brought operative consent form out to desk at this time, states she was told by OR staff they should be able to take pt down to surgery around 12pm. States to keep pt NPO also gave verbal order for L foot xray r/t wound on L foot.
--- NOTE | 2022-01-14 08:27 | XR_ITS ---
FINAL REPORT CLINICAL HISTORY: wound COMPARISON: November 27, 2021 FINDINGS: LEFT FOOT: Three views of the left foot were obtained. There is no acute fracture or dislocation. There are mild degenerative changes. There are postoperative changes from amputation of the 1st, 2nd, and 3rd digits. There are calcifications in the region posterior plantar aponeurosis. There are small calcaneal spurs. IMPRESSION: Postoperative and degenerative changes as above. Reviewed, Interpreted and Dictated by Horacio Solomon III, MD Transcribed by Trevor Barreto Authenticated by Horacio Solomon III, MD on 01/14/2022 10:07:01 AM [facility]
--- NOTE | 2022-01-14 08:27 | PC.NURSE ---
notified rad of L sil xray, spoke with valentine
--- NOTE | 2022-01-14 08:28 | HMH.ORTHOCON ---
*Admission Date: 01/14/22 <Kaitlin Corado 01/14/22 08:32> *Reason for consult:: Right foot gas <MickieChristianoKaitlin 01/14/22 08:32> *History of present illness: Patient is well-known to the podiatry team. He was last seen in the office 01/08/2022 for bilateral diabetic foot ulcers. Patient presented to [facility] yesterday 01/13/2022 with right foot cellulitis. Plain film x-ray showed new gas. CT scan at [facility] showed gas with abscess. Patient currently in the ER awaiting admission bed. Cardiology consulted. Plan to take patient to the OR this morning for left foot wound debridement and bone biopsy and right foot open amputation with incision and drainage. <Kaitlin Corado 01/14/22 08:32> [facility] History I have reviewed the patient's past medical history: Yes <MickieKaitlin 01/14/22 08:37> Medical History: Reports:: Atherosclerotic Heart Disease, Coronary Artery Disease, Diabetes Mellitus Type 2, Gastroesophageal Reflux Disease(GERD), Hyperlipidemia, Hypertension, Myocardial Infarction Denies:: Cancer, Diabetes Mellitus Type 1, Internal Pacemaker, MRSA, Seizures <MickieKaitlin 01/14/22 08:32> *Have you ever received a pneumonia vaccine?: Yes <MickieKaitlin 01/14/22 08:32> *Have you received a flu vaccine this season?: Yes <MickieKaitlin 01/14/22 08:32> Other Medical History: Reports: Arthritis, Cataracts. Denies: Blood Transfusion Reaction <Kaitlin Corado 01/14/22 08:32> Other Surgeries: Yes: CABG, Cardiac Catheterization, Cardiac Surgery, Colonoscopy, Coronary Stent, EGD, Open Heart Surgery. No: Pacemaker <Kaitlin Corado 01/14/22 08:32> Amputation: Yes (Right Partial 1st ray amp, Right 5th toe, Left 1-2-3- toes) <Kaitlin Corado 01/14/22 08:32> Fractures: Yes (Right 2-3rd metatarsal) <Kaitlin Corado 01/14/22 08:32> - *Social History Smoking Status: Former smoker <Kaitlin Corado 01/14/22 08:32> Tobacco Type: cigarettes <Kaitlin Corado 01/14/22 08:32> # Packs/Day (cigarettes): 0 <Kaitlin Corado 01/14/22 08:32> Alcohol Intake: never <Kaitlin Corado 01/14/22 08:32> Alcohol Intake Frequency:: other <Kaitlin Corado 01/14/22 08:32> Substance Use Type: other <Kaitlin Corado 01/14/22 08:32> *Occupational Status:: disabled <Kaitlin Corado 01/14/22 08:32> Housing: house <Kaitlin Corado 01/14/22 08:32> Household Members: none <Kaitlin Corado 01/14/22 08:32> *Travel in the last 8 weeks: None <Kaitlin Corado 01/14/22 08:32> Family Hx:: Cancer, Coronary Artery Disease, Heart Attack, Hyperlipidemia, Hypertension <Kaitlin Corado 01/14/22 08:32> Review of Systems - Review of Systems Review of systems:: pertinent systems reviewed and negative unless documented below <Kaitlin Corado 01/14/22 08:37> - Constitutional Denies chills <Kaitlin Corado 01/14/22 08:37> - Eyes Denies blind spots <Kaitlin Corado 01/14/22 08:37> - ENT Denies abnormal hearing <Kaitlin Corado 01/14/22 08:37> - *Cardiovascular Denies chest pain <Kaitlin Corado 01/14/22 08:37> - *Gastrointestinal Denies abdominal pain <Kaitlin Corado 01/14/22 08:37> - *Genitourinary Denies difficulty urinating <Kaitlin Corado 01/14/22 08:37> - *Neurologic Reports tingling/numbness/burning sensations, Denies headache(s), Denies seizure-like activity <Kaitlin Corado 01/14/22 08:37> - Psychiatric Denies abnormal sleep pattern <Kaitlin Corado 01/14/22 08:37> - Endocrine Reports increased thirst <Kaitlin Corado 01/14/22 08:37> - Hematologic/Lymphatic Reports enlarged lymph nodes <Kaitlin Corado - 01/14/22 08:37> Meds Home Medications Medication Instructions Recorded Confirmed Type Glimepiride 4 mg PO BID 08/17/19 01/14/22 History Metformin HCl [Metformin 1000mg 1,000 mg PO BID 08/17/19 01/14/22 History Tablets] lisinopriL [Lisinopril 5mg 5 mg PO DAILY 08/17/19 01/14/22 History Tablet] furosemide 40 mg tablet 40 mg PO DAILY 10/10/19 01/14/22 History metoprolol tartrate 25 mg tablet 25 mg PO
--- NOTE | 2022-01-14 08:31 | HMH.ORTHOCON ---
*Admission Date: 01/14/22 [facility] History Medical History: Reports:: Atherosclerotic Heart Disease, Coronary Artery Disease, Diabetes Mellitus Type 2, Gastroesophageal Reflux Disease(GERD), Hyperlipidemia, Hypertension, Myocardial Infarction Denies:: Cancer, Diabetes Mellitus Type 1, Internal Pacemaker, MRSA, Seizures *Have you ever received a pneumonia vaccine?: Yes *Have you received a flu vaccine this season?: Yes Other Medical History: Reports: Arthritis, Cataracts. Denies: Blood Transfusion Reaction Other Surgeries: Yes: CABG, Cardiac Catheterization, Cardiac Surgery, Colonoscopy, Coronary Stent, EGD, Open Heart Surgery. No: Pacemaker Amputation: Yes (Right Partial 1st ray amp, Right 5th toe, Left 1-2-3- toes) Fractures: Yes (Right 2-3rd metatarsal) - *Social History Smoking Status: Former smoker Tobacco Type: cigarettes # Packs/Day (cigarettes): 0 Alcohol Intake: never Alcohol Intake Frequency:: other Substance Use Type: other *Occupational Status:: disabled Housing: house Household Members: none *Travel in the last 8 weeks: None Family Hx:: Cancer, Coronary Artery Disease, Heart Attack, Hyperlipidemia, Hypertension Review of Systems - *Neurologic Denies headache(s), Denies seizure-like activity Meds Home Medications Medication Instructions Recorded Confirmed Type Glimepiride 4 mg PO BID 08/17/19 01/14/22 History Metformin HCl [Metformin 1000mg 1,000 mg PO BID 08/17/19 01/14/22 History Tablets] lisinopriL [Lisinopril 5mg 5 mg PO DAILY 08/17/19 01/14/22 History Tablet] furosemide 40 mg tablet 40 mg PO DAILY 10/10/19 01/14/22 History metoprolol tartrate 25 mg tablet 25 mg PO TID tab 10/10/19 01/14/22 History potassium chloride 20 mEq 20 meq PO DAILY 10/10/19 01/14/22 History tablet,extended release Cetirizine HCl 10 mg PO DAILY 01/30/20 01/13/22 History empagliflozin 25 mg tablet 25 mg PO DAILY tab 12/10/20 01/14/22 History gabapentin 600 mg tablet 600 mg PO TID tab 12/10/20 01/14/22 History atorvastatin 10 mg tablet 10 mg PO HS tab 11/27/21 01/14/22 History hydrocodone 10 mg-acetaminophen 1 tab PO Q6HP PRN tab 11/27/21 01/14/22 History 325 mg tablet mupirocin 2 % topical ointment 1 applic TOPICAL BID 14 Days #15 g 11/27/21 01/14/22 Rx omeprazole 20 mg capsule,delayed 20 mg PO BID cap 11/27/21 01/14/22 History release semaglutide 1 applicatio SQ WEEKLY 11/27/21 01/14/22 History insulin aspar prt-insulin aspart 60 units SQ BID ml 12/12/21 01/14/22 History 100 unit/mL (70-30) subcutaneous soln minocycline 100 mg capsule 100 mg PO Q12H 14 Days #28 cap 01/08/22 01/14/22 Rx Aspirin [Aspirin 81mg EC Tab] 81 mg PO DAILY 01/14/22 01/14/22 History Fluconazole 100 mg PO DAILY 01/14/22 01/14/22 History Allergies Allergy/AdvReac Type Severity Reaction Status Date / Time No Known Allergies Allergy Verified 01/08/22 12:56 Exam Vital signs and Labs for Last 24 Hours: Temp Pulse Resp BP Pulse Ox 98.9 F 85 20 113/57 L 100 01/13/22 20:18 01/14/22 06:00 01/13/22 22:08 01/14/22 06:00 01/14/22 06:00 Laboratory Results - last 24 hr 01/13/22 21:00: WBC 8.8, RBC 3.90 L, Hgb 11.3 L, Hct 33.0 L, MCV 84.6, MCH 29.0, MCHC 34.3, RDW 15.3, Plt Count 177, MPV 9.3, Neut % (Auto) 95.1 H, Lymph % (Auto) 3.0 L, [place] % (Auto) 1.3 L, Eos % (Auto) 0.4, Baso % (Auto) 0.2, Neut # (Auto) 8.4 H, Lymph # (Auto) 0.3 L, [place] # (Auto) 0.1, Eos # (Auto) 0.0, Baso # (Auto) 0.0, Total Counted 100, Neutrophils % (Manual) 96 H, Lymphocytes % (Manual) 3 L, Eosinophils % (Manual) 1, Platelet Estimate Normal, RBC Morphology Normal, ESR > 140 H 01/13/22 21:00: Sodium 132 L, Potassium 3.7, Chloride 101, Carbon Dioxide 19 L, Anion Gap 15.7 H, BUN 20, Creatinine 0.90, Estimated Creat Clear 70, Estimated GFR 84, Est GFR ( Amer) 102, Glucose 166 H, Calcium 8.3 L, Total Bilirubin 0.9, AST 36, ALT 22, Alkaline Phosphatase 116, C-Reactive Protein 149.0 H, Total Protein 6.8, Albumin 3.4 L, Globulin 3.4 H, Albumin/G
--- NOTE | 2022-01-14 08:41 | PC.NURSE ---
xray at BS
--- NOTE | 2022-01-14 09:21 | PC.NURSE ---
Cristine thapa in with pt, states they will be doing a run off with him
--- NOTE | 2022-01-14 09:31 | HMH.CNCARD ---
History of Present Illness Consult date: 01/14/22 Requesting physician: Sergey Bobo Consult reason: known to you, pre-op evaluation Chief complaint: wound and edema to RLE History of present illness: This is a 66-year-old white gentleman who presented to the emergency department at [facility] on 01/13/2022 for right foot cellulitis, wound and edema. The patient states that approximately 3 days ago the wound to his right foot began to worsen and he had significant edema in the right lower extremity with redness and malodorous drainage. As mentioned above the patient presented to the [facility] emergency department for these complaints and then was transferred here to [facility]. The patient has been following with podiatry for wounds to his bilateral feet. He has had multiple debridements and toe amputations on his bilateral lower extremities as well. The patient was evaluated in the podiatry office on 01/08/2022 and his wounds to the bilateral feet were stable. Since that time the patient now has worsening infection to the right foot which shows gas with the abscess. The patient is scheduled to go to the OR today for a right foot open amputation with incision and drainage and a left foot wound debridement with bone biopsy. Cardiology has been consulted for clearance for this patient due to his history of coronary artery disease with 6 vessel coronary artery bypass grafting and to evaluate his vascular status. He denies any chest pain or pressure. He denies any shortness of breath. He states he had no edema until 3 days ago when his right foot became cellulitic and edematous. He denies any fever, chills, nausea, vomiting, diarrhea, PND or orthopnea. [facility] History I have reviewed the patient's past medical history: Yes Medical History: Reports:: Atherosclerotic Heart Disease, Coronary Artery Disease, Diabetes Mellitus Type 2, Gastroesophageal Reflux Disease(GERD), Hyperlipidemia, Hypertension, Myocardial Infarction Denies:: Cancer, Diabetes Mellitus Type 1, Internal Pacemaker, MRSA, Seizures *Have you ever received a pneumonia vaccine?: Yes *Have you received a flu vaccine this season?: Yes Other Medical History: Reports: Arthritis, Cataracts. Denies: Blood Transfusion Reaction Other Surgeries: Yes: CABG, Cardiac Catheterization, Cardiac Surgery, Colonoscopy, Coronary Stent, EGD, Open Heart Surgery. No: Pacemaker Amputation: Yes (Right Partial 1st ray amp, Right 5th toe, Left 1-2-3- toes) Fractures: Yes (Right 2-3rd metatarsal) - *Social History Smoking Status: Former smoker Tobacco Type: cigarettes # Packs/Day (cigarettes): 0 Alcohol Intake: never Alcohol Intake Frequency:: other Substance Use Type: other *Occupational Status:: disabled Housing: house Household Members: none *Travel in the last 8 weeks: None Family Hx:: Cancer, Coronary Artery Disease, Heart Attack, Hyperlipidemia, Hypertension Meds Home Medications Medication Instructions Recorded Confirmed Type Glimepiride 4 mg PO BID 08/17/19 01/14/22 History Metformin HCl [Metformin 1000mg 1,000 mg PO BID 08/17/19 01/14/22 History Tablets] lisinopriL [Lisinopril 5mg 5 mg PO DAILY 08/17/19 01/14/22 History Tablet] furosemide 40 mg tablet 40 mg PO DAILY 10/10/19 01/14/22 History metoprolol tartrate 25 mg tablet 25 mg PO TID tab 10/10/19 01/14/22 History potassium chloride 20 mEq 20 meq PO DAILY 10/10/19 01/14/22 History tablet,extended release Cetirizine HCl 10 mg PO DAILY 01/30/20 01/13/22 History empagliflozin 25 mg tablet 25 mg PO DAILY tab 12/10/20 01/14/22 History gabapentin 600 mg tablet 600 mg PO TID tab 12/10/20 01/14/22 History atorvastatin 10 mg tablet 10 mg PO HS tab 11/27/21 01/14/22 History hydrocodone 10 mg-acetaminophen 1 tab PO Q6HP PRN tab 11/27/21 01/14/22 History 325 mg tablet mupirocin 2 % topical ointment 1 applic TOPICAL BID 14 Days #15 g 11/27/21 01/14/22 Rx omeprazole 20 mg capsule,delayed 20
--- NOTE | 2022-01-14 10:14 | PC.NURSE ---
Pt going to slab installer
--- NOTE | 2022-01-14 11:55 | SUR.PREOP ---
Received report from Maicol Flores RN @ this time.
--- NOTE | 2022-01-14 12:34 | HMH.ANESCL ---
[facility] Anesthesia Checklist - Patient Identification Patient Identification: Arm Band - Structural Data Admitted From: Home Planned Operative Procedure/s: I & D with open amputation Consent for Planned Operative Procedure(s) Verified: Yes - NPO Status Verified Time NPO: 00:00 - Additional verifications Anesthesia Reactions: No Hx Blood Transfusions: No Blood Transfusion Reaction: No - Airway Assessment C-Spine Mobility Assessed: Yes TMJ Mobility Assessed: Yes Dentition: Edentulous - Neurological Assessment Level of Consciousness: Awake Hx Seizures: No Numbness or tingling in extremities: Yes - Anesthesia Plan Anesthesia Risk discussed: Yes Anesthesia Plan: Verified ASA Class: III Anesthesia Type: General [facility] History I have reviewed the patient's past medical history: Yes Medical History: Reports:: Atherosclerotic Heart Disease, Coronary Artery Disease, Diabetes Mellitus Type 2, Gastroesophageal Reflux Disease(GERD), Hyperlipidemia, Hypertension, Myocardial Infarction Denies:: Cancer, Diabetes Mellitus Type 1, Internal Pacemaker, MRSA, Seizures *Have you ever received a pneumonia vaccine?: Yes *Have you received a flu vaccine this season?: Yes Other Medical History: Reports: Arthritis, Cataracts. Denies: Blood Transfusion Reaction Anesthesia experience/problems:: None Other Surgeries: Yes: CABG, Cardiac Catheterization, Cardiac Surgery, Colonoscopy, Coronary Stent, EGD, Open Heart Surgery. No: Pacemaker Amputation: Yes (Right Partial 1st ray amp, Right 5th toe, Left 1-2-3- toes) Fractures: Yes (Right 2-3rd metatarsal) - *Social History Smoking Status: Former smoker Tobacco Type: cigarettes # Packs/Day (cigarettes): 0 Alcohol Intake: never Alcohol Intake Frequency:: other Substance Use Type: other *Occupational Status:: disabled Housing: house Household Members: none *Travel in the last 8 weeks: None Family Hx:: Cancer, Coronary Artery Disease, Heart Attack, Hyperlipidemia, Hypertension
--- NOTE | 2022-01-14 15:05 | HMH.ANESI ---
[facility] Anesthesia Record Part I Intake, IV Amount: 1,000 Estimated blood loss (mL): 10 Urine output (mL): 0 Blood Pressure: 108/54 SaO2: 93 Pulse Rate: 78 Respiratory Rate: 16 Temperature: 98.4 F Patient is:: Drowsy, Stable Stable to PACU at:: 15:00
--- NOTE | 2022-01-14 15:19 | XR_ITS ---
PROCEDURE INFORMATION: Exam: XR Right Foot Exam date and time: 01/14/2022 3:19 PM Age: 66 years old Clinical indication: Pain; Prior surgery; Surgery date: Post-operative (0-2 days); Surgery type: Right foot surgery today, post op portable right foot exam. ; Additional info: Post op open tma TECHNIQUE: Imaging protocol: XR Right foot. Views: 3 or more views. Portable exam. COMPARISON: CT FOOT RT W CON 01/13/2022 10:10 PM FINDINGS: Bones/joints: Post amputation of the forefoot, at the level of the proximal 1st through 5th metatarsal metaphyses/diametaphyses. Some chronic rounded and curvilinear dystrophic soft tissue calcifications at the lateral midfoot and hindfoot. Chronic plantar and Achilles calcaneal spurs. Chronic fibular spurring. Soft tissues: Postoperative packing material/bandage material at the forefoot and midfoot. IMPRESSION: 1. Normal postoperative appearance, post amputation of the forefoot as detailed above. 2. Underlying chronic degenerative changes.
--- NOTE | 2022-01-14 15:20 | XR_ITS ---
PROCEDURE INFORMATION: Exam: XR Left Foot Exam date and time: 01/14/2022 3:20 PM Age: 66 years old Clinical indication: Pain; Prior surgery; Surgery date: Post-operative (0-2 days); Surgery type: Left foot surgery today, post op portable exam. ; Additional info: Left 1st met bone bx TECHNIQUE: Imaging protocol: XR Left foot. Views: 3 or more views. COMPARISON: CR XR FOOT LT MIN 3V 01/14/2022 8:35 AM FINDINGS: Bones/joints: The 1st metatarsal biopsy site is not clearly visible on x-ray. Prior amputations of 1st, 2nd and 3rd toes. Osteopenia. Chronic plantar calcaneal spur.There are no lytic skeletal lesions seen. Soft tissues: Bandage material at the presumed biopsy site overlying the 1st metatarsal head.No radiopaque foreign bodies seen within the soft tissues. IMPRESSION: No acute findings or significant change compared with the preoperative exam from 8:35 a.m., post 1st metatarsal biopsy.
--- NOTE | 2022-01-14 15:22 | HMH.OPNOTE ---
Date of procedure: 01/14/22 Pre-op Diagnosis:: 1. Left diabetic foot ulcer 2. Right diabetic foot ulcer 3. Right foot gas gangrene 4. Right foot abscess 5. DM type 2, DM neuropathy Post-op Diagnosis:: Same Procedure performed:: 1. Left foot wound debridement 2. Left foot percutaneus bone biopsy 3. Right foot incision and drainage 4. Right foot open transmetatarsal amputation 5. Application of antibiotic beads Surgeon:: Kaitlin Corado DPM Anesthesia: GETYadi Estimated blood loss (mL): 20 Clinical Note:: Patient is well-known to the podiatry team. He was last seen in the office 01/08/2022 for bilateral diabetic foot ulcers. Patient presented to [facility] yesterday 01/13/2022 with right foot cellulitis. Plain film x-ray showed new gas. CT scan at [facility] showed gas with abscess. Cardiology consulted, run off performed and clearance granted. Risks and benefits were discussed with the patient, see consult today from today. Operative findings:: Left foot subfirst metatarsal diabetic ulcer noted. Predebridement wound measured 0.3 x 0.3 x 0.1 cm and was 100% granular. Wound was sharply excisionally debrided with a 15 blade and forceps through skin into/involving subcutaneous tissue. Post debridement wound was 100% granular and measured 0.5 x 0.5 x 0.3 cm, no purulence or any signs of infection noted. First metatarsal was soft, sent for bone pathology and culture. Right foot had thick creamy malodorous drainage from the fourth toe ulcer. There were no necrotic skin changes consistent with gas gangrene. The bases of the third and fourth toes were soft with cortical erosions and changes consistent with osteomyelitis. The soft tissue along the plantar aspect of the third fourth and fifth metatarsals was nonviable with necrotic tissue and drainage noted. There were cortical changes noted to the first, second and fifth metatarsal consistent with prior amputation/injury trauma. The third and fourth metatarsals were soft distally with some drainage noted from the metatarsals. Due to abscess and gas gangrene seen on the CT scan, decision was made to leave the wound open and bring back for irrigation and debridement procedure later in the week. Operative note:: On this date and time patient was deemed an appropriate surgical candidate. With informed consent signed, the patient was taken to the operating theater. The patient was positioned supine. LMA anesthesia was induced. No tourniquet used. IV Vanco and Zosyn previously given. Bilateral lower extremities were prepped and draped in a normal sterile fashion. Left foot percutaneus bone biopsy: Attention was directed to the dorsal lateral foot where the first metatarsal was marked out. 15 blade used to make a stab incision over the met dorsal and laterally. A Jamshidi needle was inserted and used to remove specimen of the first metatarsal bone. Bone did feel soft but looked white. There was no obvious purulence from the bone specimens. A piece was sent for bone pathology and a piece for bone culture. Area was flushed with gentamicin and saline solution. Prolene used to repair skin in a simple suture fashion. Left foot subfirst metatarsal wound debridement: See operative findings for pre and postop measurements. 15 blade, forceps used to sharply excisionally debride the wound full-thickness. No purulence or new signs of infection noted. Post debridement wound 100% granular. The thickened callus edges were also debrided with a 15 blade. The edges were reapproximated and the skin was closed with Prolene. Xeroform and dry sterile dressing was then applied. Right foot incision and drainage: New gangrenous changes and necrotic skin noted to the distal right foot. Attention was directed to the right distal plantar fourth metatarsal ulcer site where a 15 blade was used to make an incision, 1 x 0.2 x 0.5 cm. Purulence was expressed from the ulcer and the fourth toe. Wound culture taken. T
--- NOTE | 2022-01-14 15:39 | PC.NURSE ---
Pt arrived to the floor at this time
--- NOTE | 2022-01-14 15:40 | SUR.PHASEI ---
1530- detailed report called to reed mantilla 1531- pt left in stable condition with reed mantilla on [facility] at this time.
[2022-01-15] VITALS (7 sets, daily range): BP systolic 100–142; BP diastolic 53–65; PULSE 69–82; RESP 16–18; TEMP 36.4–36.8; O2SAT 91–100; BMI 23.0
[2022-01-15 06:10] LABS: POC Glucose,Bedside 231 (70-110)
[2022-01-15 06:39] LABS: MANUAL DIFFERENTIAL MANUAL DIFFERENTIAL (MANUAL DIFF)
[2022-01-15 06:53] LABS: Basophils % 0.4 % (0.1-2.0); Eosinophils % 0.7 % (0.1-12.0); Hematocrit 29.8 % (42.0-52.0); Hemoglobin 9.5 g/dL (14.1-18.0); Lymphocytes # 0.4 K/mm3 (0.7-4.5); Lymphocytes % 8.6 % (10-50); Mean Corpuscular Hemoglobin 28.7 pg (27.0-31.2); Mean Corpuscular Volume 89.6 fl (80-94); Mean Platelet Volume 9.1 fl (7.4-10.4); Monocytes # 0.2 K/mm3 (0.1-1.0); Monocytes % 2.9 % (1.7-9.3); Neutrophils # 4.4 K/mm3 (1.8-7.8); Neutrophils % 87.4 % (37.0-80.0); Platelet Count 170 K/mm3 (142-424); Red Blood Count 3.32 M/mm3 (4.60-6.20); Red Cell Distribution Width 15.2 % (11.5-17.5)
[2022-01-15 06:59] LABS: Alanine Aminotransferase 21 U/L (12-78); Albumin Level 2.6 g/dl (3.5-5.0); Alkaline Phosphatase 87 U/L (38-126); Aspartate Amino Transferase 38 U/L (17-59); Bilirubin,Direct 0.2 mg/dl (0.0-0.4); Bilirubin,Indirect 0.1 mg/dL (0.0-0.9); Bilirubin,Total 0.3 mg/dl (0.2-1.3); Bilirubin,Unconjugated 0.1 mg/dL (0.0-1.1); Chol/HDL Ratio 6.6 (1-3.5); Cholesterol 106 mg/dl (140-200); HDL Cholesterol 16 mg/dl (40-60); Total Protein,Serum 5.7 g/dl (6.3-8.2); Triglycerides 226 mg/dl (30-150); VLDL Cholesterol 45 mg/dL (0-40)
[2022-01-15 07:10] LABS: C-Reactive Protein 88.9 mg/L (0-4); Direct LDL Cholesterol 43.54 mg/dL (100-129)
[2022-01-15 07:22] LABS: Erythrocyte Sedimentation Rate > 140 mm/hr (0-20)
--- NOTE | 2022-01-15 08:15 | XR_ITS ---
FINAL REPORT CLINICAL HISTORY: Confirm PICC line placement COMPARISON: August 15, 2020 FINDINGS: A single portable view of the chest was obtained. There is a new left PICC line with the tip terminating in the mid SVC. There is evidence of sternotomy. The heart size and pulmonary vascularity are within normal limits. The mediastinum is within normal limits. No acute pulmonary abnormality is identified. There is no pneumothorax. The bony thorax is intact. IMPRESSION: New left PICC line with the tip terminating in the mid SVC No pneumothorax. Reviewed, Interpreted and Dictated by Horacio Solomon III, MD Transcribed by Trevor Barreto Authenticated by Horacio Solomon III, MD on 01/15/2022 11:08:08 AM [facility]
--- NOTE | 2022-01-15 08:25 | P.PN_ITS ---
[facility] Anesthesia Record Part II Discharge Time: 15:30 Destination: Surgical Day Care (OP Surgery) PACU nurse assessment reviewed?: Yes Patient Condition:: Good Anesthesia Complications:: None Swallowing reflex intact?: Yes Cyanosis?: No Blood Pressure: 114/62 Pulse Rate: 78 Temperature: 97.8 F Mental Status: Alert & Oriented Pain level:: 0 Nausea and/or vomitting:: None Intake, IV Amount: 0
[2022-01-15 08:59] LABS: Anion Gap 13.1 mEq/L (5-15); Blood Urea Nitrogen 18 mg/dl (9-20); Calcium 7.8 mg/dl (8.4-10.2); Carbon Dioxide 18 mmol/L (22.0-30.0); Chloride 110 mmol/L (98-107); Creatinine Clearance Estimated 72 mL/min (50-200); Estimated Glomerular Filt Rate 112 ml/min (>60); GFR (African American) 136 ML/MIN (>60); Glucose 174 mg/dl (74-100); Potassium 4.1 mmoL/L (3.5-5.1); Sodium 137 mmol/L (136-145)
--- NOTE | 2022-01-15 09:17 | HMH.ORTHPN ---
Subjective Date: 01/15/22 Time: 08:50 Principal diagnosis: Right foot gas gangrene, OM Interval history: Patient is resting comfortably in bed. He reports pain to the foot has resolved. Overall feeling much better . Demonstrated use of incentive spirometer. PN: Obj Ex Vital signs: Temp Pulse Resp BP Pulse Ox 97.8 F 78 17 114/62 99 01/15/22 08:26 01/15/22 08:26 01/15/22 07:51 01/15/22 08:01/15/22 07:51 - Constitutional no acute distress - Routine HEENT Exam Head: Present: normocephalic - Routine Respiratory Exam Absent: respiratory distress - Routine Abdominal Exam Present: soft - Detailed Lower Extremity Exam Top foot image: 1 - Left: sutures intact to percutaneous bone biopsy sites x2. The sub 1st met ulcer was closed with sutures. No SOI. Right: abx beads intact to wound bed. Loose retaination sutures in place. No lashell purulence expressed. Some dusky discoloration to distal dorsal skin flap. Some bleeding noted with compression of flap. - Routine Skin Exam Present: erythema (right foot has improved) Progress Note: A&P (1) Cellulitis of right foot Status: Acute (2) Diabetic foot infection Status: Acute (3) Diabetic ulcer of left foot Status: Acute (4) Gas gangrene of foot Status: Acute (5) Type 2 diabetes mellitus with diabetic polyneuropathy, with long-term current use of insulin Status: Acute (6) CAD, multiple vessel Status: Chronic (7) Foot osteomyelitis, right Status: Chronic (8) Hyperlipidemia Status: Chronic (9) Hypertension Status: Chronic (10) S/P CABG x 6 Status: Chronic (11) Diabetic ulcer of right foot Status: Resolved (12) Amputation of one or more toes Status: Chronic (13) Severe sepsis with acute organ dysfunction Status: Acute Assessment and Plan for All Diagnoses:: Surgery, 01/14/22: S/p Left foot wound debridement, left foot percutaneus bone biopsy, right foot incision and drainage, right foot open transmetatarsal amputation, application of antibiotic beads 01/14/22, Intraop specimens: left 1st metatarsal bone culture, pathology: pending Right foot wound culture: pending Right 4th toe bone cultur: pending Right foot mets 4-5 bone culture: pending Right foot mets 1-5 bone path: pending (01/08/22 RF WCx: MRSA, E faecalis R to Clinda/orals) 01/15/22: POD#1 -b/l foot dressing changed -left: polymemb, DSD applied -right: betadine packed into open wound, DSD applied We discussed conservative versus surgical treatment options. Conservative treatment options include local wound care, oral and IV antibiotics. We discussed surgical intervention for wash out, debridement and delayed primary closure. Patient does have some dusky discoloration to right foot flap. Will plan to revise. Patient understands that the foot may change shape after surgery. Patient also understands that they could have wound healing complications including delayed healing and infection. We discussed that if the wound does not heal, it is possible that they may need a more proximal amputation and could result in further loss of digits, loss of partial foot or loss of leg. We discussed the risks and benefits in great detail. Other surgical risks include: prolonged pain and swelling, further infection requiring oral or IV antibiotics, delay in healing of soft tissue or bone, nerve or blood vessel damage, CRPS/RSD, DVT, anesthesia complications, and even . All questions answered. Patient verbalized understanding. Consent obtained. 1. Dr. Bobo for medical clearance. Discuss with PCP, Dr Bobo for IV abx recommendations (Vanco, Dapto, etc based on cultures) 2. Discussed plan of care with Cristine Brady/Dr Tran. 3. NPO after midnight. 4. Consent on chart. 5. IV ABx: Vanco, Zosyn. 6. Will need PICC, IV abx (history of OM with MRSA resistant to oral abx) x6 weeks. 7. Will nee
--- NOTE | 2022-01-15 09:28 | HMH.PNCARD ---
Subjective Date: 01/15/22 Time: 09:00 Principal diagnosis: Right foot gas gangrene, OM Interval history: This is a 66-year-old white gentleman who was admitted to the hospital for gangrenous right foot. He did undergo runoff yesterday which showed small vessel disease and no intervention was required. He did undergo open amputation of the right foot with an I&D as well as a left foot wound debridement and bone biopsy. He tolerated this procedure well. This morning he denies any chest pain or pressure. He denies any shortness of breath. He states his edema in his right leg is stable which is secondary to his infection. He denies any fever, chills, nausea, vomiting, diarrhea, PND orthopnea. Exam Vital signs and Labs for Last 24 Hours: Temp Pulse Resp BP Pulse Ox 97.8 F 78 17 114/62 99 01/15/22 08:26 01/15/22 08:26 01/15/22 07:51 01/15/22 08:26 01/15/22 07:51 Laboratory Results - last 24 hr 01/15/22 05:37: POC Glucose 231 H 01/15/22 06:23: Total Bilirubin 0.3, Direct Bilirubin 0.2, Conjugated Bilirubin 0.0, Indirect Bilirubin 0.1, Unconjugated Bilirubin 0.1, AST 38, ALT 21, Alkaline Phosphatase 87, C-Reactive Protein 88.9 H D, Total Protein 5.7 L, Albumin 2.6 L D, Triglycerides 226 H, Cholesterol 106 L, LDL Cholesterol Direct 43.54 L, VLDL Cholesterol 45 H, HDL Cholesterol 16 L, Cholesterol/HDL Ratio 6.6 H 01/15/22 06:23: ESR > 140 H 01/15/22 06:23: WBC 5.0 D, RBC 3.32 L, Hgb 9.5 L, Hct 29.8 L, MCV 89.6, MCH 28.7, MCHC 32.0, RDW 15.2, Plt Count 170, MPV 9.1, Neut % (Auto) 87.4 H, Lymph % (Auto) 8.6 L, [place] % (Auto) 2.9, Eos % (Auto) 0.7, Baso % (Auto) 0.4, Neut # (Auto) 4.4, Lymph # (Auto) 0.4 L, [place] # (Auto) 0.2, Eos # (Auto) 0.0, Baso # (Auto) 0.0 01/15/22 06:23: Sodium 137, Potassium 4.1, Chloride 110 H, Carbon Dioxide 18 L, Anion Gap 13.1, BUN 18, Creatinine 0.70 D, Estimated Creat Clear 72, Estimated GFR 112, Est GFR ( Amer) 136 D, Glucose 174 H, Calcium 7.8 L I & O for Last 24 hours: Intake & Output 01/12/22 01/13/22 01/14/22 01/15/22 23:59 23:59 23:59 23:59 Intake Total 1000 / 1000 1915 / 1915 Output Total 1175 / 1725 950 / 950 Balance -175 / -725 965 / 965 Weight 153 lb 154 lb 4 oz 155 lb 11.2 oz Microbiology Reports for the Last 24 Hours: Microbiology 01/14/22 13:49 Foot,Right - Wound Gram Stain - Final 01/13/22 21:00 Foot,Right - Drainage Gram Stain - Final 01/13/22 21:00 Foot,Right - Drainage Wound Culture - Preliminary Narrative: ECHO shows: 1. Technically difficult study because of the patient fact in poor acoustic windows. 2. Mild biatrial enlargement, normal left ventricular size, mild concentric left ventricular hypertrophy, preserved left ventricular systolic function, visually estimated ejection fraction 55% with no regional wall motion abnormality, diastolic parameters are inconclusive. 3. Trace mitral and mild tricuspid regurgitation. 4. No significant pericardial effusion. 5. Inferior vena cava is poorly visualized. - Constitutional no acute distress, average body habitus - *Routine HEENT Exam Head: Present: normocephalic, atraumatic Eye: Present: EOMI, PERRL ENT: Present: mucous membranes moist - *Routine Neck Exam Present: supple, full ROM, normal carotid upstroke. Absent: JVD, carotid bruit, lymphadenopathy - *Routine Respiratory Exam Present: CTA bilaterally - *Routine Cardiovascular Exam Present: RRR, Normal S1, Normal S2. Absent: murmur - *Routine Abdominal Exam Present: soft, normoactive bowel sounds. Absent: tenderness, distended - *Routine Extremities Exam Present: edema (Right lower extremity), full ROM, pulses intact (Pulses are palpable but diminished), normal capillary refill, amputation (Multiple toe amputations bilaterally, amputation of the right foot.). Absent: cyanosis, clubbing - *Routine Skin Exam Present: warm, wounds (Bilateral lower extremities are in dressings from surgical procedures.). Absent: ra
[2022-01-15 09:53] LABS: Eosinophils % 1 % (0-3); Hypochromasia 1+; Lymphocytes % 3 % (10-50); Monocytes % 3 % (2-9); Neutrophils % 93 % (42-76); Platelet Estimate Normal; Total Cells Counted 100
--- NOTE | 2022-01-15 10:02 | HMH.PHACONS ---
- Pharmacy Consult Date: 01/15/22 Time: 10:11 Referring provider: DR. FERRARI Reason for Consult:: VANCOMYCIN DOSING Allergies and ADEs:: Allergies Allergy/AdvReac Type Severity Reaction Status Date / Time No Known Allergies Allergy Verified 01/08/22 12:56 Home Medications:: Home Medications Medication Instructions Recorded Confirmed Type Glimepiride 4 mg PO BID 08/17/19 01/14/22 History Metformin HCl [Metformin 1000mg 1,000 mg PO BID 08/17/19 01/14/22 History Tablets] lisinopriL [Lisinopril 5mg 5 mg PO DAILY 08/17/19 01/14/22 History Tablet] furosemide 40 mg tablet 40 mg PO DAILY 10/10/19 01/14/22 History metoprolol tartrate 25 mg tablet 25 mg PO TID tab 10/10/19 01/14/22 History potassium chloride 20 mEq 20 meq PO DAILY 10/10/19 01/14/22 History tablet,extended release Cetirizine HCl 10 mg PO DAILY 01/30/20 01/13/22 History empagliflozin 25 mg tablet 25 mg PO DAILY tab 12/10/20 01/14/22 History gabapentin 600 mg tablet 600 mg PO TID tab 12/10/20 01/14/22 History atorvastatin 10 mg tablet 10 mg PO HS tab 11/27/21 01/14/22 History hydrocodone 10 mg-acetaminophen 1 tab PO Q6HP PRN tab 11/27/21 01/14/22 History 325 mg tablet mupirocin 2 % topical ointment 1 applic TOPICAL BID 14 Days #15 g 11/27/21 01/14/22 Rx omeprazole 20 mg capsule,delayed 20 mg PO BID cap 11/27/21 01/14/22 History release semaglutide 1 applicatio SQ WEEKLY 11/27/21 01/14/22 History insulin aspar prt-insulin aspart 60 units SQ BID ml 12/12/21 01/14/22 History 100 unit/mL (70-30) subcutaneous soln minocycline 100 mg capsule 100 mg PO Q12H 14 Days #28 cap 01/08/22 01/14/22 Rx Aspirin [Aspirin 81mg EC Tab] 81 mg PO DAILY 01/14/22 01/14/22 History Fluconazole 100 mg PO DAILY 01/14/22 01/14/22 History Height: 1.75 m Weight: 70.624 kg Laboratory Results:: Laboratory Results - last 24 hr 01/15/22 05:37: POC Glucose 231 H 01/15/22 06:23: Total Bilirubin 0.3, Direct Bilirubin 0.2, Conjugated Bilirubin 0.0, Indirect Bilirubin 0.1, Unconjugated Bilirubin 0.1, AST 38, ALT 21, Alkaline Phosphatase 87, C-Reactive Protein 88.9 H D, Total Protein 5.7 L, Albumin 2.6 L D, Triglycerides 226 H, Cholesterol 106 L, LDL Cholesterol Direct 43.54 L, VLDL Cholesterol 45 H, HDL Cholesterol 16 L, Cholesterol/HDL Ratio 6.6 H 01/15/22 06:23: ESR > 140 H 01/15/22 06:23: WBC 5.0 D, RBC 3.32 L, Hgb 9.5 L, Hct 29.8 L, MCV 89.6, MCH 28.7, MCHC 32.0, RDW 15.2, Plt Count 170, MPV 9.1, Neut % (Auto) 87.4 H, Lymph % (Auto) 8.6 L, [place] % (Auto) 2.9, Eos % (Auto) 0.7, Baso % (Auto) 0.4, Neut # (Auto) 4.4, Lymph # (Auto) 0.4 L, [place] # (Auto) 0.2, Eos # (Auto) 0.0, Baso # (Auto) 0.0, Total Counted 100, Neutrophils % (Manual) 93 H, Lymphocytes % (Manual) 3 L, Monocytes % (Manual) 3, Eosinophils % (Manual) 1, Platelet Estimate Normal, Hypochromasia 1+ 01/15/22 06:23: Sodium 137, Potassium 4.1, Chloride 110 H, Carbon Dioxide 18 L, Anion Gap 13.1, BUN 18, Creatinine 0.70 D, Estimated Creat Clear 72, Estimated GFR 112, Est GFR ( Amer) 136 D, Glucose 174 H, Calcium 7.8 L Medical History: Reports:: Atherosclerotic Heart Disease, Coronary Artery Disease, Diabetes Mellitus Type 2, Gastroesophageal Reflux Disease(GERD), Hyperlipidemia, Hypertension, Myocardial Infarction Denies:: Cancer, Diabetes Mellitus Type 1, Internal Pacemaker, MRSA, Seizures Assessment and Plan (1) Cellulitis of right foot Status: Acute Category: Medical Code(s): L03.115 - Cellulitis of right lower limb (2) Diabetic foot infection Status: Acute Category: Medical Code(s): E11.628 - Type 2 diabetes mellitus with other skin complications; L08.9 - Local infection of the skin and subcutaneous tissue, unspecified (3) Diabetic ulcer of left foot Status: Acute Qualifiers: Diabetic foot ulcer location: other Diabetes mellitus type: type 2 Non-pressure ulcer stage: with fat layer exposed Qualified Code(s): E11.621 - Type 2 diabetes mellitus with foot ulcer; L97.522 - N
--- NOTE | 2022-01-15 10:15 | HMH.PTEV ---
Physical Therapy Evaluation Rehab PT IP Evaluation Start: 01/14/22 15:15 Freq: ONCE Status: Active Protocol: Document 01/15/22 10:00 [email or web address] (Rec: 01/15/22 10:15 LION [id number]) Subjective/History History History This is a 66-year-old white gentleman who presented to the emergency department at [facility] on for right foot cellulitis, wound and edema. The patient states that approximately 3 days ago the wound to his right foot began to worsen and he had significant edema in the right lower extremity with redness and malodorous drainage. As mentioned above the patient presented to the [facility] emergency department for these complaints and then was transferred here to [facility]. The patient has been following with podiatry for wounds to his bilateral feet. He has had multiple debridements and toe amputations on his bilateral lower extremities as well. The patient was evaluated in the podiatry office on 01/08/2022 and his wounds to the bilateral feet were stable. Since that time the patient now has worsening infection to the right foot which shows gas with the abscess (Per Heidi Brady APRN). copied from H&P Subjective Subjective No complaints from pt - pt able to follw WBing restriction Rehab PT IP Eval Objective Appearance Patient Behavior Appropriate,Cooperative Patient Orientation Person,Place,Time Difficulty following instructions none Speech Pattern Clear,Appropriate Ambulation Patient Able to Ambulate Yes Ambulation Observation IP General Gait Pattern Observation Decrease Weight Bear (R) Ambulation Distance (feet) 5 Ambulation Assistive Device Rolling Walker
--- NOTE | 2022-01-15 10:22 | CARE MANAGER ---
Addendum entered by [facility] 01/16/22 13:26: [facility] was not able to accept this patient due to insurance benefits. Addendum entered by [facility] 01/16/22 13:24: Patient information has also been faxed to [facility]. Lela has stated they can accept and precert will be started. I will call and update patients family. Addendum entered by [facility] 01/16/22 11:47: Margie w/ [facility] has called back and stated that she can not accept this patient due to not having out of network benefits. Liliana leora/ [facility] is still reviewing information. I will update patients family. Addendum entered by [facility] 01/16/22 10:59: Margie corey/ [facility] has called and stated that she will be starting a precert on this patient. Addendum entered by [facility] 01/16/22 10:21: PT has recommended placement at time of discharge. I spoke with patient this AM regarding placement: patient is agreeable but asked that I speak with his family regarding situation. Patient prefers a [place] facility. I called and spoke with Chari regarding situation: Chari is agreeable and would prefer a [place] facility for this patient as well. Patient information has been faxed to [facility] and [facility]. [facility] is NOT in network with patients insurance. I will continue to follow up with patient, family, MD and facilities. Original Note: Spoke with claire Eaton about patient need for IV antibotics (Vanomycin 1 gram IV daily every 12 hours x 6 weeks) Chari states that patient has done IV antibotics at home before so they are ok with the BID dosing of the Vanc. Information faxed to [facility], awaiting return call. Patient requests [facility] (his sister has them) so will make that referral today. CM will follow-up.
[2022-01-15 11:13] LABS: POC Glucose,Bedside 216 (70-110)
--- NOTE | 2022-01-15 12:42 | HMH.ACPN2 ---
Internal Medicine - PN: Subj *Date: 01/15/22 *Time: 12:50 Interval history: 66-year-old male patient resting in bed quietly with eyes open. He denies any distress during the night, reports pain is controlled with as needed pain medicine during the night. Dressings intact to bilateral feet, he reports feeling much better today than yesterday. Podiatry performed a Left foot wound debridement, left foot percutaneus bone biopsy, right foot incision and drainage, right foot open transmetatarsal amputation, application of antibiotic beads yesterday. Exam Vital signs and Labs for Last 24 Hours: Temp Pulse Resp BP Pulse Ox 97.8 F 78 17 114/62 99 01/15/22 08:26 01/15/22 08:26 01/15/22 07:51 01/15/22 08:26 01/15/22 07:51 Laboratory Results - last 24 hr 01/15/22 05:37: POC Glucose 231 H 01/15/22 06:23: Total Bilirubin 0.3, Direct Bilirubin 0.2, Conjugated Bilirubin 0.0, Indirect Bilirubin 0.1, Unconjugated Bilirubin 0.1, AST 38, ALT 21, Alkaline Phosphatase 87, C-Reactive Protein 88.9 H D, Total Protein 5.7 L, Albumin 2.6 L D, Triglycerides 226 H, Cholesterol 106 L, LDL Cholesterol Direct 43.54 L, VLDL Cholesterol 45 H, HDL Cholesterol 16 L, Cholesterol/HDL Ratio 6.6 H 01/15/22 06:23: ESR > 140 H 01/15/22 06:23: WBC 5.0 D, RBC 3.32 L, Hgb 9.5 L, Hct 29.8 L, MCV 89.6, MCH 28.7, MCHC 32.0, RDW 15.2, Plt Count 170, MPV 9.1, Neut % (Auto) 87.4 H, Lymph % (Auto) 8.6 L, [place] % (Auto) 2.9, Eos % (Auto) 0.7, Baso % (Auto) 0.4, Neut # (Auto) 4.4, Lymph # (Auto) 0.4 L, [place] # (Auto) 0.2, Eos # (Auto) 0.0, Baso # (Auto) 0.0, Total Counted 100, Neutrophils % (Manual) 93 H, Lymphocytes % (Manual) 3 L, Monocytes % (Manual) 3, Eosinophils % (Manual) 1, Platelet Estimate Normal, Hypochromasia 1+ 01/15/22 06:23: Sodium 137, Potassium 4.1, Chloride 110 H, Carbon Dioxide 18 L, Anion Gap 13.1, BUN 18, Creatinine 0.70 D, Estimated Creat Clear 72, Estimated GFR 112, Est GFR ( Amer) 136 D, Glucose 174 H, Calcium 7.8 L 01/15/22 11:01: POC Glucose 216 H I & O for Last 24 hours: Intake & Output 01/12/22 01/13/22 01/14/22 01/15/22 23:59 23:59 23:59 23:59 Intake Total 1000 / 1000 1915 / 1915 Output Total 1175 / 1725 1250 / 1250 Balance -175 / -725 665 / 665 Weight 153 lb 154 lb 4 oz 155 lb 10.342 oz Microbiology Reports for the Last 24 Hours: Microbiology 01/13/22 21:00 Foot,Right - Drainage Gram Stain - Final 01/13/22 21:00 Foot,Right - Drainage Wound Culture - Preliminary Gram Negative Rods 01/14/22 13:49 Foot,Right - Wound Gram Stain - Final 01/14/22 13:49 Foot,Right - Wound Wound Culture - Preliminary - Constitutional no acute distress, chronically ill appearing - *Routine HEENT Exam Head: Present: normocephalic Eye: Present: EOMI ENT: Present: mucous membranes moist - *Routine Neck Exam Present: trachea midline. Absent: tracheal deviation - *Routine Respiratory Exam Present: decreased breath sounds. Absent: accessory muscle use - *Routine Cardiovascular Exam Present: RRR - *Routine Abdominal Exam Present: soft, normoactive bowel sounds. Absent: tenderness, firm - *Routine Extremities Exam Present: edema. Absent: cyanosis, clubbing Comments: Pedal pulses diminished bilaterally - *Routine Skin Exam Present: dry, wounds. Absent: intact, cyanosis, erythema Comments: Dressings to bilateral feet clean/dry/intact - *Routine Neurological Exam Present: alert, oriented X3. Absent: motor deficit - Routine Psychiatric Exam Present: normal affect, normal thought process. Absent: visual hallucinations Assessment and Plan (1) Cellulitis of right foot Status: Acute Category: Medical Code(s): L03.115 - Cellulitis of right lower limb (2) Diabetic foot infection Status: Acute Category: Medical Code(s): E11.628 - Type 2 diabetes mellitus with other skin complications; L08.9 - Local infection of the skin and subcutaneous tissue, unspecified
--- NOTE | 2022-01-15 13:34 | PC.NURSE ---
rounded on patient no concerns or questions. watching tv and visiting with family. call [facility] within reach no needs voiced.
--- NOTE | 2022-01-15 14:32 | PC.NURSE ---
Pt is alert and oriented x4. Lungs clear and diminished t/o. He remains on RA. He is using his IS, he reports being able to draw 1500. Dressings to bilateral feet are clean, dry and intact. Dressing to right wrist is clean, dry and intact. He's been up to the chair with a rolling walker and assist from PT. He uses a urinal at the bedside. 1 bm noted today. Treated for pain x1 thus far.
[2022-01-15 16:25] LABS: POC Glucose,Bedside 258 (70-110)
[2022-01-16] VITALS (7 sets, daily range): BP systolic 123–139; BP diastolic 58–82; PULSE 76–82; RESP 16–20; TEMP 36.3–36.6; O2SAT 95–99; BMI 23.1
[2022-01-16 06:08] LABS: POC Glucose,Bedside 185 (70-110)
[2022-01-16 06:23] LABS: MANUAL DIFFERENTIAL MANUAL DIFFERENTIAL (MANUAL DIFF)
[2022-01-16 06:33] LABS: Basophils # 0.1 K/mm3 (0-0.2); Basophils % 2.2 % (0.1-2.0); Eosinophils # 0.1 K/mm3 (0.0-0.4); Eosinophils % 3.2 % (0.1-12.0); Hemoglobin 9.1 g/dL (14.1-18.0); Lymphocytes % 21.8 % (10-50); Mean Corpuscular HGB Conc 32.6 g/dL (31.8-35.4); Mean Corpuscular Hemoglobin 28.2 pg (27.0-31.2); Mean Corpuscular Volume 86.7 fl (80-94); Mean Platelet Volume 8.4 fl (7.4-10.4); Monocytes # 0.3 K/mm3 (0.1-1.0); Monocytes % 6.1 % (1.7-9.3); Neutrophils # 2.9 K/mm3 (1.8-7.8); Neutrophils % 66.7 % (37.0-80.0); Platelet Count 171 K/mm3 (142-424); Red Blood Count 3.24 M/mm3 (4.60-6.20); White Blood Count 4.4 K/mm3 (4.8-10.8)
[2022-01-16 06:41] LABS: Anion Gap 7.9 mEq/L (5-15); Blood Urea Nitrogen 11 mg/dl (9-20); Calcium 7.9 mg/dl (8.4-10.2); Carbon Dioxide 22 mmol/L (22.0-30.0); Chloride 112 mmol/L (98-107); Creatinine Clearance Estimated 72 mL/min (50-200); Estimated Glomerular Filt Rate 134 ml/min (>60); GFR (African American) 163 ML/MIN (>60); Glucose 163 mg/dl (74-100); Potassium 3.9 mmoL/L (3.5-5.1); Sodium 138 mmol/L (136-145)
--- NOTE | 2022-01-16 08:08 | HMH.ORTHPN ---
Subjective Date: 01/16/22 Time: 08:00 Principal diagnosis: Right foot gas gangrene, OM Interval history: Patient sitting up in bed. Alert and oriented x 3. No acute distress noted. Denies pain to right foot. NPO since midninght for right foot incision and drainage debridement of non-viable soft tissue and bone, revise transmetatarsal amputation, right foot infection, gas gangrene, osteomyelitis, right achilles lengthening. PN: Obj Ex Vital signs: Temp Pulse Resp BP Pulse Ox 97.9 F 78 16 123/82 99 01/16/22 04:00 01/16/22 04:00 01/16/22 04:00 01/16/22 04:00 01/16/22 04:00 - Constitutional no acute distress - Routine HEENT Exam Head: Present: normocephalic Eye: Present: EOMI ENT: Present: mucous membranes moist - Routine Neck Exam Present: supple - Routine Respiratory Exam Absent: respiratory distress - Routine Abdominal Exam Present: soft - Detailed Lower Extremity Exam Foot/Toes: Bilateral wound Top foot image: 1 - 1 - Left: sutures intact to percutaneous bone biopsy sites x2. The sub 1st met ulcer was closed with sutures. No SOI. Right: abx beads intact to wound bed. Loose retaination sutures in place. No lashell purulence expressed. Some dusky discoloration to distal dorsal skin flap. Some bleeding noted with compression of flap. B/l feet wounds dressings intact. Progress Note: A&P (1) Cellulitis of right foot Start date: 01/16/22 Start time: 08:00 Status: Acute (2) Diabetic foot infection Start date: 01/16/22 Start time: 08:00 Status: Acute (3) Diabetic ulcer of left foot Start date: 01/16/22 Start time: 08:00 Status: Acute (4) Gas gangrene of foot Start date: 01/16/22 Start time: 08:00 Status: Acute (5) Type 2 diabetes mellitus with diabetic polyneuropathy, with long-term current use of insulin Start date: 01/16/22 Start time: 08:00 Status: Acute (6) CAD, multiple vessel Status: Chronic (7) Foot osteomyelitis, right Start date: 01/16/22 Start time: 08:00 Status: Chronic (8) Hyperlipidemia Status: Chronic (9) Hypertension Status: Chronic (10) S/P CABG x 6 Status: Chronic (11) Diabetic ulcer of right foot Start date: 01/16/22 Start time: 08:00 Status: Resolved (12) Amputation of one or more toes Start date: 01/16/22 Start time: 08:00 Status: Chronic (13) Severe sepsis with acute organ dysfunction Status: Acute Assessment and Plan for All Diagnoses:: Laboratory Tests 01/16/22 01/16/22 06:20 06:20 WBC 4.4 L BUN 11 D Creatinine 0.60 L Estimated GFR 134 Glucose 163 H Surgery, 01/14/22: S/p Left foot wound debridement, left foot percutaneus bone biopsy, right foot incision and drainage, right foot open transmetatarsal amputation, application of antibiotic beads 01/14/22, Intraop specimens: left 1st metatarsal bone culture, pathology: pending Right foot wound culture: pending Right 4th toe bone cultur: pending Right foot mets 4-5 bone culture: pending Right foot mets 1-5 bone path: pending (01/08/22 RF WCx: MRSA, E faecalis R to Clinda/orals) 01/15/22: POD#1 -b/l foot dressing changed -left: polymemb, DSD applied -right: betadine packed into open wound, DSD applied We discussed conservative versus surgical treatment options. Conservative treatment options include local wound care, oral and IV antibiotics. We discussed surgical intervention for wash out, debridement and delayed primary closure. Patient does have some dusky discoloration to right foot flap. Will plan to revise. Patient understands that the foot may change shape after surgery. Patient also understands that they could have wound healing complications including delayed healing and infection. We discussed that if the wound does not heal, it is possible that they may need a more proximal amputation and could result in further loss of d
[2022-01-16 08:27] LABS: Eosinophils % 5 % (0-3); Lymphocytes % 12 % (10-50); Monocytes % 2 % (2-9); Neutrophils % 81 % (42-76); Platelet Estimate Normal; Total Cells Counted 100
--- NOTE | 2022-01-16 09:09 | HMH.ACPN2 ---
Internal Medicine - PN: Subj *Date: 01/16/22 *Time: 12:08 Interval history: 59-year-old male patient lying in bed resting quietly, he is actively participating in physical therapy. Dressings intact bilateral feet clean/dry/intact. He is scheduled to have surgery with podiatry this afternoon. Exam Vital signs and Labs for Last 24 Hours: Temp Pulse Resp BP Pulse Ox 97.4 F L 76 20 139/58 L 98 01/16/22 08:00 01/16/22 08:00 01/16/22 08:00 01/16/22 08:00 01/16/22 08:00 Laboratory Results - last 24 hr 01/15/22 06:23: Total Counted 100, Neutrophils % (Manual) 93 H, Lymphocytes % (Manual) 3 L, Monocytes % (Manual) 3, Eosinophils % (Manual) 1, Platelet Estimate Normal, Hypochromasia 1+ 01/15/22 11:01: POC Glucose 216 H 01/15/22 16:17: POC Glucose 258 H 01/16/22 05:25: POC Glucose 185 H 01/16/22 06:20: WBC 4.4 L, RBC 3.24 L, Hgb 9.1 L, Hct 28.0 L, MCV 86.7, MCH 28.2, MCHC 32.6, RDW 15.0, Plt Count 171, MPV 8.4, Neut % (Auto) 66.7, Lymph % (Auto) 21.8, [place] % (Auto) 6.1, Eos % (Auto) 3.2, Baso % (Auto) 2.2 H, Neut # (Auto) 2.9, Lymph # (Auto) 1.0, [place] # (Auto) 0.3, Eos # (Auto) 0.1, Baso # (Auto) 0.1, Total Counted 100, Neutrophils % (Manual) 81 H, Lymphocytes % (Manual) 12, Monocytes % (Manual) 2, Eosinophils % (Manual) 5 H, Platelet Estimate Normal 01/16/22 06:20: Sodium 138, Potassium 3.9, Chloride 112 H, Carbon Dioxide 22, Anion Gap 7.9, BUN 11 D, Creatinine 0.60 L, Estimated Creat Clear 72, Estimated GFR 134, Est GFR ( Amer) 163, Glucose 163 H, Calcium 7.9 L I & O for Last 24 hours: Intake & Output 01/13/22 01/14/22 01/15/22 01/16/22 23:59 23:59 23:59 23:59 Intake Total 1000 / 1000 3711 / 3711 1654 / 1654 Output Total 1175 / 1725 1950 / 2850 900 / 900 Balance -175 / -725 1761 / 861 754 / 754 Weight 153 lb 154 lb 4 oz 155 lb 10.342 oz 156 lb Microbiology Reports for the Last 24 Hours: Microbiology 01/13/22 21:00 Foot,Right - Drainage Gram Stain - Final 01/13/22 21:00 Foot,Right - Drainage Wound Culture - Preliminary Enterobacter cloacae 01/14/22 13:35 Foot,Left - Wound Bone Culture - Preliminary NO GROWTH AFTER 24 HOURS 01/14/22 14:12 Foot,Right - Wound Bone Culture - Preliminary NO GROWTH AFTER 24 HOURS 01/14/22 13:49 Foot,Right - Wound Gram Stain - Final 01/14/22 13:49 Foot,Right - Wound Wound Culture - Preliminary - Constitutional no acute distress, chronically ill appearing - *Routine HEENT Exam Head: Present: normocephalic Eye: Present: EOMI ENT: Present: mucous membranes moist - *Routine Neck Exam Present: trachea midline. Absent: tracheal deviation - *Routine Respiratory Exam Present: decreased breath sounds. Absent: accessory muscle use - *Routine Cardiovascular Exam Present: RRR - *Routine Abdominal Exam Present: soft, normoactive bowel sounds. Absent: tenderness, firm - *Routine Extremities Exam Present: edema, amputation. Absent: cyanosis, calf tenderness - *Routine Skin Exam Present: dry, wounds. Absent: intact, cyanosis, erythema Comments: Dressings to bilateral feet clean/dry/intact - *Routine Neurological Exam Present: alert, oriented X3. Absent: motor deficit, altered mental status - Routine Psychiatric Exam Present: normal affect, normal thought process. Absent: visual hallucinations Assessment and Plan (1) Cellulitis of right foot Start date: 01/16/22 Start time: 08:00 Status: Acute Category: Medical Code(s): L03.115 - Cellulitis of right lower limb (2) Diabetic foot infection Start date: 01/16/22 Start time: 08:00 Status: Acute Category: Medical Code(s): E11.628 - Type 2 diabetes mellitus with other skin complications; L08.9 - Local infection of the skin and subcutaneous tissue, unspecified (3) Diabetic ulcer of left foot Start date: 01/16/22 Start time: 08:00 Status: Acute Qualifiers: Diabetic fo
[2022-01-16 11:45] LABS: Vancomycin,Trough 12.9 ug/mL (5.0-10.0)
--- NOTE | 2022-01-16 13:14 | PC.NURSE ---
Surgery staff here to take patient for surgery
--- NOTE | 2022-01-16 15:51 | SUR.OPER ---
1551 family provided with an update
--- NOTE | 2022-01-16 16:31 | PC.NURSE ---
Pt just arrived back to the floor from the OR. lugger says no anesthesia was administered, pt only received a local.
--- NOTE | 2022-01-16 16:31 | HMH.OPNOTE ---
Date of procedure: 01/16/22 Pre-op Diagnosis:: 1. S/p right foot I&D on 01/14/22 (stage one) 2. Right diabetic foot ulcer 3. Right foot gas gangrene 4. Right foot abscess 5. DM type 2, DM neuropathy Post-op Diagnosis:: Same Procedure performed:: 1. Right foot I&D, revision transmetatarsal amputation 2. Adjacent tissue transfer/rearrangement for soft tissue defect 3. Right tendo achilles lengthening 4. Application of RANDI drain 5. Application of antibiotic beads 6. Application of posterior splint Surgeon:: Kaitlin Corado DPM Anesthesia: local (0.5% marcaine plain) Estimated blood loss (mL): 15 Clinical Note:: Plan staged irrigation and debridement for right foot gas gangrene status post I&D and open transmetatarsal amputation 01/14/2022. All risks and benefits previously reviewed with the patient, see progress note. Operative findings:: No lashell purulence or malodor noted. There was some dusky changes to the dorsal aspect of the foot skin flap. Some bleeding noted with debridement. Nonviable tissue was sharply excisionally debrided with 15 blade and forceps full-thickness. The rotational flap performed all ulcers had been previously excised 01/14/2022 surgery.This case needs modifier. It was a planned stage 2 procedure. Stage one was inpatient consult with same day emergency surgery for gas gangrene. The surgery: took approximately 45 minutes longer than normal due to the defect in the soft tissue caused by the diabetic ulcers which were previously excised combined with performing a tissue arrangement advanced flap to cover the soft tissue defect (cpt 16700-57595) and exposed metatarsals. Operative note:: On this date and time patient was deemed an appropriate surgical candidate. With informed consent signed, the patient was taken to the operating theater. The patient was positioned supine. No general anesthesia was induced. No tourniquet used. 25cc 0.5% marcaine plain infiltrated around Achilles and as an ankle block. IV Vanco, Zosyn given on floor. Right tendo Achilles lengthening: The right lower extremity was prepped and draped in normal sterile fashion. Attention was directed to the posterior leg. Three stab incisions where made overlying the Achilles. Utilizing the three holes, kristel-section of the Achilles was performed with the foot maximally dorsiflexed. Release of the Achilles contracture was noted. The incisions were flushed with copious amounts of sterile saline and the wound was closed with 2-0 Prolene. Right foot irrigation and debridement, transmetatarsal amputation: Next attention was directed to the amp site where some dusky discoloration was noted distally. Utilizing 15 blade and forceps the nonviable soft tissue was sharply excisionally debrided full-thickness through skin subcu deep fascia including extensor tendons to the level of the bone. The open wound was over [id number]. The transmetatarsal amputation sites were evaluated. No evidence of cortical changes or obvious signs of osteomyelitis. There was bony prominence noted to the fifth metatarsal site. A rongeur was used to debride/remove the sharp prominence which was sent as bone culture and bone pathology. A bone rasp was used to remove the exostosis and smooth the remaining bone down. 3 L of gentamicin irrigation and a pulse lavage was used to flush the wound site. It was reexplored and no new signs of deep infection noted. Decision was made to close the wound. 0 Vicryl used to reapproximate deep tissue covering the metatarsals so they were no longer exposed. Application of antibiotic beads, RANDI drain: Next [facility] OsteoSet beads were mixed with vancomycin powder and inserted into the wound site. A 7 flat RANDI drain was also utilized to help prevent hematoma. Adjacent tissue transfer/rearrangement for soft tissue defect: Given the extent of deformity remaining from the gas gangrene and excision of the diabetic ulcers during the initial stage one surgery, there was irregula
--- NOTE | 2022-01-16 16:38 | SUR.OPER ---
1622 Detailed report given to maricruz Merlos/travel med surg rn from OR being that pt had a local procedure. 1624 Pt was transported from OR to med/surg Rm 201. Pt is in stable condition and reports feeling okay. Denies any pain, or nausea at this time. 1627 Pt in room 201. Pt left in stable condition with maricruz Merlos/travel med surg rn at pt's bedside.
--- NOTE | 2022-01-16 18:19 | PC.NURSE ---
5 mls of bloody drainage emptied from masha drain
[2022-01-17] VITALS: BP 106/58; PULSE 71; RESP 20; TEMP 36.8; O2SAT 97
[2022-01-17 04:00] VITALS: BP 123/73; PULSE 72; RESP 18; TEMP 36.7; O2SAT 96
[2022-01-17 05:00] VITALS: BMI 23.2
[2022-01-17 05:52] LABS: POC Glucose,Bedside 221 (70-110)
--- NOTE | 2022-01-17 07:02 | PC.NURSE ---
15mls emptied from RANDI drain
[2022-01-17 07:28] LABS: Anion Gap 7.9 mEq/L (5-15); Blood Urea Nitrogen 8 mg/dl (9-20); Carbon Dioxide 24 mmol/L (22.0-30.0); Chloride 109 mmol/L (98-107); Creatinine Clearance Estimated 72 mL/min (50-200); Estimated Glomerular Filt Rate 112 ml/min (>60); GFR (African American) 136 ML/MIN (>60); Glucose 175 mg/dl (74-100); Potassium 3.9 mmoL/L (3.5-5.1); Sodium 137 mmol/L (136-145)
[2022-01-17 07:35] LABS: Erythrocyte Sedimentation Rate > 140 mm/hr (0-20)
[2022-01-17 07:48] LABS: MANUAL DIFFERENTIAL MANUAL DIFFERENTIAL (MANUAL DIFF)
[2022-01-17 07:51] LABS: Basophils % 0.5 % (0.1-2.0); Eosinophils # 0.2 K/mm3 (0.0-0.4); Eosinophils % 3.5 % (0.1-12.0); Hematocrit 26.5 % (42.0-52.0); Hemoglobin 8.7 g/dL (14.1-18.0); Lymphocytes # 1.1 K/mm3 (0.7-4.5); Lymphocytes % 23.1 % (10-50); Mean Corpuscular HGB Conc 32.7 g/dL (31.8-35.4); Mean Corpuscular Hemoglobin 28.2 pg (27.0-31.2); Mean Corpuscular Volume 86.2 fl (80-94); Mean Platelet Volume 8.6 fl (7.4-10.4); Monocytes # 0.3 K/mm3 (0.1-1.0); Monocytes % 6.6 % (1.7-9.3); Neutrophils # 3.2 K/mm3 (1.8-7.8); Neutrophils % 66.2 % (37.0-80.0); Platelet Count 210 K/mm3 (142-424); Red Blood Count 3.07 M/mm3 (4.60-6.20); Red Cell Distribution Width 15.3 % (11.5-17.5); White Blood Count 4.8 K/mm3 (4.8-10.8)
[2022-01-17 08:00] VITALS: BP 125/64; PULSE 70; RESP 16; TEMP 36.6; O2SAT 98
[2022-01-17 08:09] LABS: C-Reactive Protein 28.9 mg/L (0-4)
--- NOTE | 2022-01-17 08:17 | HMH.ACPN ---
Internal Medicine - PN: Subj *Date: 01/17/22 *Time: 08:17 Exam Vital signs and Labs for Last 24 Hours: Temp Pulse Resp BP Pulse Ox 97.8 F 70 16 125/64 98 01/17/22 08:00 01/17/22 08:00 01/17/22 08:00 01/17/22 08:00 01/17/22 08:00 Laboratory Results - last 24 hr 01/16/22 06:20: Total Counted 100, Neutrophils % (Manual) 81 H, Lymphocytes % (Manual) 12, Monocytes % (Manual) 2, Eosinophils % (Manual) 5 H, Platelet Estimate Normal 01/16/22 10:20: Vancomycin Trough 12.9 H 01/16/22 20:18: POC Glucose 221 H 01/17/22 06:15: ESR > 140 H 01/17/22 06:15: C-Reactive Protein 28.9 H D 01/17/22 06:15: WBC 4.8, RBC 3.07 L, Hgb 8.7 L, Hct 26.5 L, MCV 86.2, MCH 28.2, MCHC 32.7, RDW 15.3, Plt Count 210, MPV 8.6, Neut % (Auto) 66.2, Lymph % (Auto) 23.1, [place] % (Auto) 6.6, Eos % (Auto) 3.5, Baso % (Auto) 0.5, Neut # (Auto) 3.2, Lymph # (Auto) 1.1, [place] # (Auto) 0.3, Eos # (Auto) 0.2, Baso # (Auto) 0.0 01/17/22 06:15: Sodium 137, Potassium 3.9, Chloride 109 H, Carbon Dioxide 24, Anion Gap 7.9, BUN 8 L D, Creatinine 0.70, Estimated Creat Clear 72, Estimated GFR 112, Est GFR ( Amer) 136, Glucose 175 H, Calcium 8.0 L I & O for Last 24 hours: Intake & Output 01/14/22 01/15/22 01/16/22 01/17/22 23:59 23:59 23:59 23:59 Intake Total 1000 / 1000 3711 / 3711 2378 / 2378 Output Total 1175 / 1725 1950 / 2850 2350 / 2850 1100 / 1100 Balance -175 / -725 1761 / 861 28 / -472 -1100 / -1100 Weight 69.967 kg 70.6 kg 70.76 kg 71.214 kg Microbiology Reports for the Last 24 Hours: Microbiology 01/14/22 13:49 Foot,Right - Wound - Final 01/14/22 13:49 Foot,Right - Wound Gram Stain - Final 01/14/22 13:49 Foot,Right - Wound Wound Culture - Preliminary Enterobacter cloacae Gram Positive Cocci 01/14/22 14:12 Foot,Right - Wound Bone Culture - Preliminary Enterobacter cloacae Gram Positive Cocci 01/14/22 14:24 Foot,Right Bone Culture - Preliminary 01/13/22 21:00 Foot,Right - Drainage Gram Stain - Final 01/13/22 21:00 Foot,Right - Drainage Wound Culture - Preliminary Enterobacter cloacae Enterococcus faecalis 01/14/22 13:35 Foot,Left - Wound Bone Culture - Preliminary NO GROWTH AFTER 48 HOURS Assessment and Plan (1) Cellulitis of right foot Start date: 01/16/22 Start time: 08:00 Status: Acute Category: Medical Code(s): L03.115 - Cellulitis of right lower limb (2) Diabetic foot infection Start date: 01/16/22 Start time: 08:00 Status: Acute Category: Medical Code(s): E11.628 - Type 2 diabetes mellitus with other skin complications; L08.9 - Local infection of the skin and subcutaneous tissue, unspecified (3) Diabetic ulcer of left foot Start date: 01/16/22 Start time: 08:00 Status: Acute Qualifiers: Diabetic foot ulcer location: other Diabetes mellitus type: type 2 Non-pressure ulcer stage: with fat layer exposed Qualified Code(s): E11.621 - Type 2 diabetes mellitus with foot ulcer; L97.522 - Non-pressure chronic ulcer of other part of left foot with fat layer exposed Category: Medical Code(s): E11.621 - Type 2 diabetes mellitus with foot ulcer; L97.529 - Non-pressure chronic ulcer of other part of left foot with unspecified severity (4) Gas gangrene of foot Start date: 01/16/22 Start time: 08:00 Status: Acute Category: Medical Code(s): A48.0 - Gas gangrene (5) Type 2 diabetes mellitus with diabetic polyneuropathy, with long-term current use of insulin Start date: 01/16/22 Start time: 08:00 Status: Acute Category: Medical Code(s): E11.42 - Type 2 diabetes mellitus with diabetic polyneuropathy; Z79.4 - rn long term care (current) use of insulin (6) CAD, multiple vessel Status: Chronic Category: Medical Code(s): I25.10 - Atherosclerotic heart disease
[2022-01-17 08:44] LABS: Coronavirus 19, PCR Not Detected (NotDetected); Influenza A, PCR Not Detected (NotDetected); Influenza B, PCR Not Detected (NotDetected)
--- NOTE | 2022-01-17 08:55 | HMH.ORTHPN ---
Subjective Date: 01/17/22 Time: 08:30 Principal diagnosis: Right foot gas gangrene, OM Interval history: Patient is resting comfortably in bed. Denies pain to the left foot. Reports right foot pain has dramatically improved. His appetite has returned and he denies N/V, F/C, SOB/CP. SNF placement [facility]. PN: Obj Ex Vital signs: Temp Pulse Resp BP Pulse Ox 97.8 F 70 16 125/64 98 01/17/22 08:00 01/17/22 08:00 01/17/22 08:00 01/17/22 08:00 01/17/22 08:00 - Constitutional no acute distress - Routine HEENT Exam Head: Present: normocephalic - Routine Respiratory Exam Absent: respiratory distress - Routine Cardiovascular Exam Present: RRR - Routine Abdominal Exam Present: soft - Routine Extremities Exam Present: edema, amputation (L 1-3rd toe amp, R TMA) - Detailed Lower Extremity Exam Top foot image: 1 - Left sutures intact to bone bx sites. Sutures intact to sub 1st met ulcer excision site. Right achilles sutures intact. Right TMA with sutures and RANDI intact. Flap appears viable, not dusky or necrotic. No purulence, malodor or drainage noted. Progress Note: A&P (1) Cellulitis of right foot Status: Acute (2) Diabetic foot infection Status: Acute (3) Diabetic ulcer of left foot Status: Acute (4) Gas gangrene of foot Status: Acute (5) Type 2 diabetes mellitus with diabetic polyneuropathy, with long-term current use of insulin Status: Acute (6) CAD, multiple vessel Status: Chronic (7) Foot osteomyelitis, right Status: Chronic (8) Hyperlipidemia Status: Chronic (9) Hypertension Status: Chronic (10) S/P CABG x 6 Status: Chronic (11) Diabetic ulcer of right foot Status: Resolved (12) Amputation of one or more toes Status: Chronic (13) Severe sepsis with acute organ dysfunction Status: Acute Assessment and Plan for All Diagnoses:: Surgery, 01/14/22: S/p Left foot wound debridement, left foot percutaneus bone biopsy, right foot incision and drainage, right foot open transmetatarsal amputation, application of antibiotic beads 01/14/22, Intraop specimens: left 1st metatarsal bone culture, pathology: pending Right foot wound culture: pending Right 4th toe bone cultur: pending Right foot mets 4-5 bone culture: pending Right foot mets 1-5 bone path: pending (01/08/22 RF WCx: MRSA, E faecalis R to Clinda/orals) Microbiology 01/14/22 13:49 Foot,Right - Wound Gram Stain - Final 01/14/22 13:49 Foot,Right - Wound - Final 01/13/22 21:00 Foot,Right - Drainage Gram Stain - Final 01/08/22 15:47 Foot,Right Gram Stain - Final 01/08/22 15:47 Foot,Right Wound Culture - Final Enterococcus faecalis Staphylococcus epidermidis 01/14/22 14:24 Foot,Right Bone Culture - Preliminary 01/14/22 14:12 Foot,Right - Wound Bone Culture - Preliminary Enterobacter cloacae Gram Positive Cocci 01/14/22 13:49 Foot,Right - Wound Wound Culture - Preliminary Enterobacter cloacae Gram Positive Cocci 01/14/22 13:35 Foot,Left - Wound Bone Culture - Preliminary NO GROWTH AFTER 48 HOURS 01/13/22 21:00 Foot,Right - Drainage Wound Culture - Preliminary Enterobacter cloacae Enterococcus faecalis Laboratory Tests 01/13/22 01/13/22 01/16/22 21:00 21:00 10:20 WBC ESR > 140 H Creatinine Estimated GFR Glucose C-Reactive Protein 149.0 H Vancomycin Trough 12.9 H 01/17/22 01/17/22 01/17/22 06:15 06:15 06:15 WBC 4.8 ESR > 140 H Creatinine Estimated GFR Glucose C-Reactive Protein 28.9 H D Vancomycin Trough 01/17/22 06:15 WBC E
--- NOTE | 2022-01-17 10:22 | HMH.DCSUM ---
General - General Admission date:: 01/13/22 Discharge date: 01/17/22 HPI HPI: This is a 66-year-old white gentleman who presented to the emergency department at [facility] on 01/13/2022 for right foot cellulitis, wound and edema. The patient states that approximately 3 days ago the wound to his right foot began to worsen and he had significant edema in the right lower extremity with redness and malodorous drainage. As mentioned above the patient presented to the [facility] emergency department for these complaints and then was transferred here to [facility]. The patient has been following with podiatry for wounds to his bilateral feet. He has had multiple debridements and toe amputations on his bilateral lower extremities as well. The patient was evaluated in the podiatry office on 01/08/2022 and his wounds to the bilateral feet were stable. Since that time the patient now has worsening infection to the right foot which shows gas with the abscess (Per Heidi Brady APRN). Hospital Course Hospital Course: Abnormal Lab Results 01/16/22 10:20: Vancomycin Trough 12.9 H 01/16/22 20:18: POC Glucose 221 H 01/17/22 06:15: ESR > 140 H 01/17/22 06:15: C-Reactive Protein 28.9 H D 01/17/22 06:15: RBC 3.07 L, Hgb 8.7 L, Hct 26.5 L 01/17/22 06:15: Chloride 109 H, BUN 8 L D, Glucose 175 H, Calcium 8.0 L Microbiology 01/14/22 13:49 Foot,Right - Wound - Final 01/14/22 13:49 Foot,Right - Wound Gram Stain - Final 01/14/22 13:49 Foot,Right - Wound Wound Culture - Preliminary Enterobacter cloacae Gram Positive Cocci 01/14/22 14:12 Foot,Right - Wound Bone Culture - Preliminary Enterobacter cloacae Gram Positive Cocci 01/14/22 14:24 Foot,Right Bone Culture - Preliminary 01/13/22 21:00 Foot,Right - Drainage Gram Stain - Final 01/13/22 21:00 Foot,Right - Drainage Wound Culture - Preliminary Enterobacter cloacae Enterococcus faecalis 01/14/22 13:35 Foot,Left - Wound Bone Culture - Preliminary NO GROWTH AFTER 48 HOURS Ordering Physician: Sergey Bobo MD Date of Service: 01/13/22 Procedure(s): CT foot RT w con Accession Number(s): [id number] cc: Francisco Azar MD; Sergey Bobo MD; Provider,Referral MD~ PROCEDURE INFORMATION: Exam: CT Right Lower Extremity With Contrast, Foot Exam date and time: 01/13/2022 9:00 PM Age: 66 years old Clinical indication: Swelling, leg or foot; Prior surgery; Additional info: R foot pain, swelling, infection TECHNIQUE: Imaging protocol: CT of the Right lower extremity with intravenous contrast was performed. Exam focused on the foot. Radiation optimization: All CT scans at this facility use at least one of these dose optimization techniques: automated exposure control; mA and/or kV adjustment per patient size (includes targeted exams where dose is matched to clinical indication); or iterative reconstruction. Contrast material: ISOVUE; Contrast volume: 75 ml; Contrast route: IV; COMPARISON: MR FOOT RT WO/W CON 08/11/2020 9:46 AM FINDINGS: Bones/joints: Remote amputation of the 1st ray at the level of the distal metatarsal, with chronic remodeling. Remote fracture deformity of the 2nd metatarsal with hypertrophic callus formation. Chronic remodeling of the distal 3rd metatarsal. Fourth MTP joint effusion. Question subtle erosion involving the articular surface of the base of the 4th toe proximal phalanx. Probable subtle periosteal reaction of the 4th toe proximal phalanx near the base as well. Findings are suspicious for acute/active septic arthritis, and possibly osteomyelitis of the 4th toe proximal phalanx. Chronic amputation of the 5th toe at the level of the mid metatarsal shaft.
[2022-01-17 11:53] LABS: POC Glucose,Bedside 221 (70-110)
--- NOTE | 2022-01-17 12:14 | PC.NURSE ---
Report called to Brandee @ [facility] @ this time.
[2022-01-17 12:41] LABS: Eosinophils % 2 % (0-3); Lymphocytes % 17 % (10-50); Monocytes % 6 % (2-9); Neutrophils % 72 % (42-76); Total Cells Counted 100
[2022-01-17 12:42] LABS: Platelet Estimate Normal
--- NOTE | 2022-01-20 14:55 | CARE MANAGER ---
Contacted patient regarding follow up from hospital discharge. Patient states he is receiving his IV antibiotics and therapy. He states it is going real well and he has follow up appointment on with Mickie. Denies questions or concerns at this time. SANDY Cortes
[2022-07-31 10:58] LABS: POC Glucose,Bedside 130 (70-110)
== END 2022-01-17 13:02 | DRG 853 ==
LOC: ER 20:51 → 2ND 23:46
PROVIDERS: Internal Medicine; Nurse Practitioner Family; Podiatrist; Admitting Provider Emergency Medicine; Emergency Provider Emergency Medicine; Visit Provider Emergency Medicine
PROC: B41D0ZZ Fluoroscopy of Aorta and Bilateral Lower Extremity Arteries using High Osmolar Contrast (ICD-10-PCS; principal; 2022-01-14 10:00)
PROC: 0JBR0ZZ Excision of Left Foot Subcutaneous Tissue and Fascia, Open Approach (ICD-10-PCS; principal; 2022-01-14 13:00)
PROC: 0QBN0ZZ Excision of Right Metatarsal, Open Approach (ICD-10-PCS; principal; 2022-01-16 13:00)
DX: A41.9 Sepsis, unspecified organism (principal); A48.0 Gas gangrene; M86.171 Other acute osteomyelitis, right ankle and foot; L97.515 Non-pressure chronic ulcer of other part of right foot with muscle involvement without evidence of necrosis; E11.52 Type 2 diabetes mellitus with diabetic peripheral angiopathy with gangrene; L03.115 Cellulitis of right lower limb; L02.611 Cutaneous abscess of right foot; R65.20 Severe sepsis without septic shock; E11.40 Type 2 diabetes mellitus with diabetic neuropathy, unspecified; Z79.4 Long term (current) use of insulin; Z95.1 Presence of aortocoronary bypass graft; Z89.422 Acquired absence of other left toe(s); Z89.421 Acquired absence of other right toe(s); I25.10 Atherosclerotic heart disease of native coronary artery without angina pectoris; K21.9 Gastro-esophageal reflux disease without esophagitis; E78.5 Hyperlipidemia, unspecified; I10 Essential (primary) hypertension; I25.2 Old myocardial infarction; Z87.891 Personal history of nicotine dependence; E11.69 Type 2 diabetes mellitus with other specified complication; E11.621 Type 2 diabetes mellitus with foot ulcer; L97.522 Non-pressure chronic ulcer of other part of left foot with fat layer exposed; L97.529 Non-pressure chronic ulcer of other part of left foot with unspecified severity; L97.519 Non-pressure chronic ulcer of other part of right foot with unspecified severity
CPT/HCPCS: 11042; 20220; 28810 ×3; 11044; 11047 ×4; 14301; 14302; 27685; 36246; 36248; 36415; 36569; 71045; 73630; 73701; 75630; 80048; 80053; 80061; 80076; 80202; 82962; 83605; 84145; 85007; 85014; 85018; 85025; 85048; 85049; 85651; 86140; 87070; 87075; 87077; 87081; 87186; 87205; 88304; 88305; 88307; 88311; 93306; 96365; 96366; 96367; 97110; 97162; 99152; 99153; 99285; A4649; C1713; C1725; C1751; C1769; C9803; J1644; J2405; J2543; J3370; Q9966; Q9967; U0003; U0005

== ENCOUNTER → 2022-03-18 10:54 | Outpatient (CLI) | payer MEDICARE, OTHER, SELFPAY ==
[2022-03-18 14:23] LABS: Chloride 104 mmol/L (98-107); Potassium 4.7 mmoL/L (3.5-5.1); Sodium 138 mmol/L (136-145)
[2022-03-18 14:26] LABS: Alanine Aminotransferase 54 U/L (12-78); Albumin Level 3.8 g/dl (3.5-5.0); Albumin/Globulin Ratio 1.2 (1.1-1.8); Alkaline Phosphatase 131 U/L (38-126); Anion Gap 16.7 mEq/L (5-15); Aspartate Amino Transferase 67 U/L (17-59); Bilirubin,Total 0.5 mg/dl (0.2-1.3); Blood Urea Nitrogen 18 mg/dl (9-20); Carbon Dioxide 22 mmol/L (22.0-30.0); Estimated Glomerular Filt Rate 84 ml/min (>60); GFR (African American) 102 ML/MIN (>60); Globulin 3.3 g/dL (1.3-3.2); Total Protein,Serum 7.1 g/dl (6.3-8.2)
[2022-03-18 14:27] LABS: Basophils % 0.6 % (0.1-2.0); Calcium 9.4 mg/dl (8.4-10.2); Eosinophils # 0.1 K/mm3 (0.0-0.4); Eosinophils % 1.9 % (0.1-12.0); Glucose 193 mg/dl (74-100); Hematocrit 40.3 % (42.0-52.0); Hemoglobin 13.1 g/dL (14.1-18.0); Lymphocytes # 0.8 K/mm3 (0.7-4.5); Lymphocytes % 18.4 % (10-50); Mean Corpuscular HGB Conc 32.6 g/dL (31.8-35.4); Mean Corpuscular Hemoglobin 28.2 pg (27.0-31.2); Mean Corpuscular Volume 86.5 fl (80-94); Mean Platelet Volume 10.5 fl (7.4-10.4); Monocytes # 0.4 K/mm3 (0.1-1.0); Monocytes % 8.6 % (1.7-9.3); Neutrophils # 3.2 K/mm3 (1.8-7.8); Neutrophils % 70.5 % (37.0-80.0); Platelet Count 122 K/mm3 (142-424); Red Blood Count 4.66 M/mm3 (4.60-6.20); Red Cell Distribution Width 16.1 % (11.5-17.5); White Blood Count 4.6 K/mm3 (4.8-10.8)
[2022-03-18 14:32] LABS: C-Reactive Protein 20.3 mg/L (0-4)
[2022-03-18 15:30] LABS: Erythrocyte Sedimentation Rate 54 mm/hr (0-20)
== END ==
PROVIDERS: Visit Provider Podiatrist
DX: E11.42 Type 2 diabetes mellitus with diabetic polyneuropathy (principal); Z79.4 Long term (current) use of insulin
CPT/HCPCS: 80053; 85025; 85651; 86140

== ENCOUNTER → 2022-04-08 11:58 | Outpatient (CLI) | payer MEDICARE, OTHER, SELFPAY ==
[2022-04-08 15:14] LABS: Basophils % 0.6 % (0.1-2.0); Eosinophils # 0.1 K/mm3 (0.0-0.4); Eosinophils % 1.8 % (0.1-12.0); Hemoglobin 13.7 g/dL (14.1-18.0); Lymphocytes # 0.9 K/mm3 (0.7-4.5); Lymphocytes % 19.9 % (10-50); Mean Corpuscular HGB Conc 34.2 g/dL (31.8-35.4); Mean Corpuscular Hemoglobin 28.1 pg (27.0-31.2); Mean Corpuscular Volume 82.2 fl (80-94); Mean Platelet Volume 10.1 fl (7.4-10.4); Monocytes # 0.3 K/mm3 (0.1-1.0); Monocytes % 7.4 % (1.7-9.3); Neutrophils # 3.1 K/mm3 (1.8-7.8); Neutrophils % 70.3 % (37.0-80.0); Platelet Count 130 K/mm3 (142-424); Red Blood Count 4.87 M/mm3 (4.60-6.20); Red Cell Distribution Width 15.7 % (11.5-17.5); White Blood Count 4.5 K/mm3 (4.8-10.8)
[2022-04-08 15:19] LABS: Chloride 100 mmol/L (98-107)
[2022-04-08 15:20] LABS: Potassium 4.3 mmoL/L (3.5-5.1); Sodium 134 mmol/L (136-145)
[2022-04-08 15:22] LABS: Alanine Aminotransferase 35 U/L (12-78); Albumin Level 4.2 g/dl (3.5-5.0); Alkaline Phosphatase 121 U/L (38-126); Aspartate Amino Transferase 40 U/L (17-59); Bilirubin,Total 0.6 mg/dl (0.2-1.3); Blood Urea Nitrogen 23 mg/dl (9-20); Estimated Glomerular Filt Rate 84 ml/min (>60); GFR (African American) 102 ML/MIN (>60)
[2022-04-08 15:23] LABS: Albumin/Globulin Ratio 1.3 (1.1-1.8); Anion Gap 19.3 mEq/L (5-15); Calcium 9.7 mg/dl (8.4-10.2); Carbon Dioxide 19 mmol/L (22.0-30.0); Globulin 3.3 g/dL (1.3-3.2); Glucose 249 mg/dl (74-100); Total Protein,Serum 7.5 g/dl (6.3-8.2)
[2022-04-08 15:28] LABS: C-Reactive Protein 2.9 mg/L (0-4)
[2022-04-08 15:45] LABS: Erythrocyte Sedimentation Rate 32 mm/hr (0-20)
== END ==
PROVIDERS: Visit Provider Podiatrist
DX: Z47.81 Encounter for orthopedic aftercare following surgical amputation (principal); E11.628 Type 2 diabetes mellitus with other skin complications; S91.301D Unspecified open wound, right foot, subsequent encounter; T81.31XD Disruption of external operation (surgical) wound, not elsewhere classified, subsequent encounter; Z79.4 Long term (current) use of insulin
CPT/HCPCS: 80053; 85025; 85651; 86140

== ENCOUNTER → 2022-04-22 11:41 | Outpatient (CLI) | payer MEDICARE, OTHER, SELFPAY ==
[2022-04-22 14:25] LABS: Chloride 100 mmol/L (98-107); Potassium 4.3 mmoL/L (3.5-5.1); Sodium 134 mmol/L (136-145)
[2022-04-22 14:26] LABS: Basophils % 0.5 % (0.1-2.0); Eosinophils # 0.1 K/mm3 (0.0-0.4); Eosinophils % 1.2 % (0.1-12.0); Hemoglobin 13.4 g/dL (14.1-18.0); Lymphocytes # 0.8 K/mm3 (0.7-4.5); Lymphocytes % 17.7 % (10-50); Mean Corpuscular HGB Conc 33.6 g/dL (31.8-35.4); Mean Corpuscular Hemoglobin 27.9 pg (27.0-31.2); Mean Corpuscular Volume 83.2 fl (80-94); Mean Platelet Volume 9.5 fl (7.4-10.4); Monocytes # 0.4 K/mm3 (0.1-1.0); Monocytes % 7.9 % (1.7-9.3); Neutrophils # 3.4 K/mm3 (1.8-7.8); Neutrophils % 72.6 % (37.0-80.0); Platelet Count 130 K/mm3 (142-424); Red Blood Count 4.81 M/mm3 (4.60-6.20); Red Cell Distribution Width 16.1 % (11.5-17.5); White Blood Count 4.7 K/mm3 (4.8-10.8)
[2022-04-22 14:27] LABS: Alanine Aminotransferase 42 U/L (12-78); Aspartate Amino Transferase 48 U/L (17-59); Blood Urea Nitrogen 22 mg/dl (9-20); Estimated Glomerular Filt Rate 96 ml/min (>60); GFR (African American) 117 ML/MIN (>60)
[2022-04-22 14:28] LABS: Albumin Level 4.3 g/dl (3.5-5.0); Albumin/Globulin Ratio 1.2 (1.1-1.8); Alkaline Phosphatase 139 U/L (38-126); Anion Gap 17.3 mEq/L (5-15); Bilirubin,Total 0.7 mg/dl (0.2-1.3); Calcium 9.6 mg/dl (8.4-10.2); Carbon Dioxide 21 mmol/L (22.0-30.0); Globulin 3.6 g/dL (1.3-3.2); Glucose 279 mg/dl (74-100); Total Protein,Serum 7.9 g/dl (6.3-8.2)
[2022-04-22 14:33] LABS: C-Reactive Protein 7.7 mg/L (0-4)
[2022-04-22 15:05] LABS: Erythrocyte Sedimentation Rate 22 mm/hr (0-20)
== END ==
PROVIDERS: Visit Provider Podiatrist
DX: L84 Corns and callosities (principal); T81.31XD Disruption of external operation (surgical) wound, not elsewhere classified, subsequent encounter; B96.5 Pseudomonas (aeruginosa) (mallei) (pseudomallei) as the cause of diseases classified elsewhere; B95.2 Enterococcus as the cause of diseases classified elsewhere
CPT/HCPCS: 80053; 85025; 85651; 86140; 87070; 87077; 87186; 87205

== ENCOUNTER → 2022-04-23 08:46 | Outpatient (CLI) | payer OTHER, MEDICARE, SELFPAY | PROVIDERS: Visit Provider Podiatrist | DX: E11.9 Type 2 diabetes mellitus without complications (principal) ==

== ENCOUNTER → 2022-04-29 09:10 | Outpatient (CLI) | payer MEDICARE, OTHER, SELFPAY ==
--- NOTE | 2022-04-29 09:14 | XR_ITS ---
FINAL REPORT CLINICAL HISTORY: pain, callus COMPARISON: January 14, 2022 FINDINGS: RIGHT FOOT: Three views of the right foot were obtained. There is no acute fracture or dislocation. There are postoperative changes from transmetatarsal amputation. There has been interval removal of antibiotic beads. There are mild degenerative changes. There is no soft tissue abnormality. IMPRESSION: Postoperative changes with no acute bony abnormality. Reviewed, Interpreted and Dictated by Horacio Solomon III, MD Transcribed by Chayo Mccain Authenticated and [facility]
--- NOTE | 2022-04-29 09:14 | XR_ITS ---
FINAL REPORT CLINICAL HISTORY: pain COMPARISON: January 14, 2022 FINDINGS: LEFT FOOT: Three views of the left foot were obtained. There is no acute fracture or dislocation. There are postoperative changes from amputation of the 1st, 2nd, and 3rd digits at the MTP joints. There are mild degenerative changes. There are small calcaneal spurs. There is no soft tissue abnormality. IMPRESSION: Postoperative changes with no acute bony abnormality. Reviewed, Interpreted and Dictated by Horacio Solomon III, MD Transcribed by Chayo Mccain Authenticated and [facility]
== END ==
PROVIDERS: Visit Provider Podiatrist
DX: Z98.890 Other specified postprocedural states (principal); E11.628 Type 2 diabetes mellitus with other skin complications; L08.9 Local infection of the skin and subcutaneous tissue, unspecified
CPT/HCPCS: 73630

== ENCOUNTER 2022-06-22 11:23 | Emergency (ER) | payer MEDICARE, OTHER, SELFPAY ==
--- NOTE | 2022-06-22 11:34 | PC.NURSE ---
SANDY Bishop aware of patients bedside blood sugar being 322 mg/dL
[2022-06-22 11:39] LABS: POC Glucose,Bedside 322 (70-110)
[2022-06-22 11:42] VITALS: BP 150/90; PULSE 74; RESP 18; TEMP 36.8; O2SAT 99; BMI 22.1
--- NOTE | 2022-06-22 11:46 | PC.NURSE ---
patient removed left shoe and placed his left foot on a chux on the ED stretcher for ER MD to assess.
[2022-06-22 12:00] VITALS: BP 119/74; PULSE 68; O2SAT 98
--- NOTE | 2022-06-22 12:27 | HMH.EDGENADL ---
ED Disposition Clinical Impression: Cellulitis Qualifiers: Site of cellulitis: extremity Site of cellulitis of extremity: toe Laterality: left Qualified Code(s): L03.032 - Cellulitis of left toe Disposition: Home, Self-Care Condition on Discharge: Fair Instructions: Cellulitis, DI for Skin Abscess Prescriptions: clindamycin HCL [Clindamycin HCl] 300 mg PO QID 10 Days #40 cap Transmission Status: Received by [id number] Referrals: Riana Barajas [Primary Care Provider] - - Critical Care Critical Care Time: No Attestation: On 06/22/22, the high probability of a clinically significant, sudden or life threatening deterioration of the following system(s) required my full and direct attention, intervention and personal management. The time I documented below is in addition to time spent performing reported procedures but includes the following listed in this critical care notation. Medical Decision Making - Jose Inquiry Pt receiving controlled substance: No Vital Signs: 06/22/22 11:42 06/22/22 12:00 06/22/22 13:20 Temperature 98.2 F 98.1 F Temperature Source Oral Oral Pulse Rate 68 64 Pulse Rate [Left Radial] 74 Respiratory Rate 18 17 Blood Pressure 119/74 121/87 Blood Pressure [Right Arm] 150/90 H Blood Pressure Mean 94 Blood Pressure Mean [Right Arm] 110 02 Sat by Pulse Oximetry 99 98 Oxygen Delivery Method Room Air Room Air - Lab Data Lab Results 06/22/22 11:29: POC Glucose 322 H* Orders (Tests/Meds): ED MEDICATIONS Discontinued Medications Generic Name Dose Route Start Last Admin Trade Name Freq PRN Reason Stop Dose Admin Clindamycin HCl 300 mg 06/22/22 12:42 06/22/22 12:45 Clindamycin 150mg Capsule PO 06/22/22 12:43 300 mg ONCE ONE Administration ORDERS Category Date Time Status POC Glucose,Bedside Stat Lab 06/22/22 11:33 Ordered Medical Decision Narrative: This is a 66-year-old male with history of diabetes status post amputations of left foot and left chronic foot wound managed by home health care wound nurse, CAD, hyperlipidemia, hypertension, CAD status post stenting who is presenting with left foot redness. On arrival, patient hemodynamically stable, alert, oriented, moving all extremities spontaneously, pupils equal and reactive to light, GCS 15. Differential includes cellulitis, abscess, and STI, osteomyelitis, fracture, among others. Given patient without pain, no evidence of fluctuance, crepitus, or other concerns for surgical or bony abnormalities, patient's clinical history most likely represents acute cellulitis of left lower extremity. Patient was given 1 dose of clindamycin here in the emergency department, then deemed appropriate for discharge once tolerated antibiotic. He was given clindamycin for home-going and instructions to follow-up with his primary care provider to ensure improvement in symptoms in the next 48 hours. Results were relayed to patient who voiced understanding and were agreeable to outpatient management and follow up. Patient was discharged in hemodynamically stable condition with recommended primary care follow-up. General Adult HPI - General Chief complaint: Skin/Abscess/Foreign Body Stated complaint: infection on L foot, diabetic Time Seen by Provider: 06/22/22 11:45 Mode of Arrival: Ambulatory Limitations: No Limitations Description of Symptoms (Recalled from ER Triage Doc. by RN): pt to ed c/o left foot infection and redness. pt states he is scheduled to see podiatry tomorrow. pt states he has home health but is not currently on abx. pt reports a hx of diabetes. - History of Present Illness HPI narrative: This is a 66-year-old male with history of diabetes status post amputations of left foot and left chronic foot wound managed by home health care wound nurse, CAD, hyperlipidemia, hypertension, CAD status post stenting who is presenting with left foot redness. Patient states 1 day prior to arri
[2022-06-22 13:20] VITALS: BP 121/87; PULSE 64; RESP 17; TEMP 36.7; O2SAT 98
== END 2022-06-22 13:20 | disposition home or self-care (01) ==
PROVIDERS: Emergency Provider Emergency Medicine; PCP Physician Assistant Medical
DX: E11.628 Type 2 diabetes mellitus with other skin complications (principal); L03.032 Cellulitis of left toe; Z79.4 Long term (current) use of insulin
CPT/HCPCS: 82962; 99283

== ENCOUNTER → 2022-06-23 08:59 | Outpatient (CLI) | payer MEDICARE, OTHER, SELFPAY ==
--- NOTE | 2022-06-23 09:03 | XR_ITS ---
FINAL REPORT CLINICAL HISTORY: Pain in Lt foot x mos, comparison done. NKT COMPARISON: April 29, 2022 FINDINGS: RIGHT FOOT Three weight-bearing views of the right foot were obtained. There has been transmetatarsal amputation through the right foot which is unchanged from prior exam. There is a small plantar calcaneal spur. There is no bony erosion or periosteal reaction. IMPRESSION: Stable postoperative changes from transmetatarsal amputation. Reviewed, Interpreted and Dictated by Patrick Martin MD Transcribed by Chayo Mccain Authenticated and [facility]
--- NOTE | 2022-06-23 09:03 | XR_ITS ---
FINAL REPORT CLINICAL HISTORY: Redness w pain in Lt foot x mos, NKT COMPARISON: April 29, 2022 FINDINGS: LEFT FOOT Three weight-bearing views of the left foot obtained. There has been amputation of the 1st through 3rd digits. There is a small plantar calcaneal spur. There is no bony erosion or periosteal reaction. IMPRESSION: Postoperative changes as above. Reviewed, Interpreted and Dictated by Patrick Martin MD Transcribed by Chayo Mccain Authenticated and [facility]
[2022-06-23 09:51] LABS: Basophils % 0.3 % (0.1-2.0); Eosinophils # 0.1 K/mm3 (0.0-0.4); Eosinophils % 1.3 % (0.1-12.0); Hematocrit 40.6 % (42.0-52.0); Hemoglobin 12.8 g/dL (14.1-18.0); Lymphocytes # 0.9 K/mm3 (0.7-4.5); Lymphocytes % 13.4 % (10-50); Mean Corpuscular HGB Conc 31.6 g/dL (31.8-35.4); Mean Corpuscular Hemoglobin 27.2 pg (27.0-31.2); Mean Corpuscular Volume 86.3 fl (80-94); Mean Platelet Volume 9.2 fl (7.4-10.4); Monocytes # 0.5 K/mm3 (0.1-1.0); Platelet Count 250 K/mm3 (142-424); Red Cell Distribution Width 16.2 % (11.5-17.5); White Blood Count 6.4 K/mm3 (4.8-10.8)
[2022-06-23 11:12] LABS: Alanine Aminotransferase 25 U/L (12-78); Albumin Level 3.7 g/dl (3.5-5.0); Albumin/Globulin Ratio 0.9 (1.1-1.8); Alkaline Phosphatase 236 U/L (38-126); Anion Gap 16.3 mEq/L (5-15); Aspartate Amino Transferase 28 U/L (17-59); Bilirubin,Total 0.6 mg/dl (0.2-1.3); Blood Urea Nitrogen 16 mg/dl (9-20); Calcium 9.1 mg/dl (8.4-10.2); Carbon Dioxide 25 mmol/L (22.0-30.0); Chloride 100 mmol/L (98-107); Estimated Glomerular Filt Rate 96 ml/min (>60); GFR (African American) 117 ML/MIN (>60); Globulin 3.9 g/dL (1.3-3.2); Glucose 172 mg/dl (74-100); Potassium 4.3 mmoL/L (3.5-5.1); Sodium 137 mmol/L (136-145); Total Protein,Serum 7.6 g/dl (6.3-8.2)
[2022-06-23 11:18] LABS: C-Reactive Protein 101.4 mg/L (0-4)
[2022-06-23 12:30] LABS: Erythrocyte Sedimentation Rate 18 mm/hr (0-20)
== END ==
PROVIDERS: Visit Provider Podiatrist
DX: Z51.89 Encounter for other specified aftercare (principal); E11.621 Type 2 diabetes mellitus with foot ulcer; L97.529 Non-pressure chronic ulcer of other part of left foot with unspecified severity; Z79.84 Long term (current) use of oral hypoglycemic drugs
CPT/HCPCS: 36415; 73630; 80053; 85025; 85651; 86140

== ENCOUNTER → 2022-07-08 11:41 | Outpatient (CLI) | payer MEDICARE, OTHER, SELFPAY | PROVIDERS: Visit Provider Podiatrist | DX: E11.621 Type 2 diabetes mellitus with foot ulcer (principal); S98.132A Complete traumatic amputation of one left lesser toe, initial encounter | CPT/HCPCS: 87070; 87077; 87186; 87205 ==

== ENCOUNTER → 2022-07-18 07:50 | Outpatient (CLI) | payer MEDICARE, OTHER, SELFPAY ==
[2022-07-18 08:15] LABS: Basophils % 0.4 % (0.1-2.0); Eosinophils # 0.1 K/mm3 (0.0-0.4); Eosinophils % 1.8 % (0.1-12.0); Hemoglobin 13.3 g/dL (14.1-18.0); Lymphocytes # 1.1 K/mm3 (0.7-4.5); Lymphocytes % 20.9 % (10-50); Mean Corpuscular HGB Conc 30.9 g/dL (31.8-35.4); Mean Corpuscular Hemoglobin 26.7 pg (27.0-31.2); Mean Corpuscular Volume 86.4 fl (80-94); Mean Platelet Volume 9.2 fl (7.4-10.4); Monocytes # 0.3 K/mm3 (0.1-1.0); Monocytes % 5.9 % (1.7-9.3); Neutrophils # 3.8 K/mm3 (1.8-7.8); Platelet Count 144 K/mm3 (142-424); Red Blood Count 4.98 M/mm3 (4.60-6.20); Red Cell Distribution Width 16.8 % (11.5-17.5); White Blood Count 5.4 K/mm3 (4.8-10.8)
[2022-07-18 08:59] LABS: Erythrocyte Sedimentation Rate 40 mm/hr (0-20)
[2022-07-18 09:22] LABS: Alanine Aminotransferase 33 U/L (12-78); Albumin Level 3.8 g/dl (3.5-5.0); Albumin/Globulin Ratio 1.1 (1.1-1.8); Alkaline Phosphatase 167 U/L (38-126); Anion Gap 17.4 mEq/L (5-15); Aspartate Amino Transferase 37 U/L (17-59); Bilirubin,Total 0.4 mg/dl (0.2-1.3); Blood Urea Nitrogen 20 mg/dl (9-20); Carbon Dioxide 27 mmol/L (22.0-30.0); Chloride 99 mmol/L (98-107); Estimated Glomerular Filt Rate 112 ml/min (>60); GFR (African American) 136 ML/MIN (>60); Globulin 3.4 g/dL (1.3-3.2); Glucose 213 mg/dl (74-100); Potassium 4.4 mmoL/L (3.5-5.1); Sodium 139 mmol/L (136-145); Total Protein,Serum 7.2 g/dl (6.3-8.2)
[2022-07-18 09:28] LABS: C-Reactive Protein 3.6 mg/L (0-4)
== END ==
PROVIDERS: PCP Nurse Practitioner Family; Visit Provider Podiatrist
DX: L03.116 Cellulitis of left lower limb (principal)
CPT/HCPCS: 36415; 80053; 85025; 85651; 86140

== ENCOUNTER → 2022-08-15 07:51 | Outpatient (CLI) | payer MEDICARE, OTHER, SELFPAY ==
[2022-08-15 08:15] LABS: Basophils % 0.5 % (0.1-2.0); Eosinophils # 0.1 K/mm3 (0.0-0.4); Eosinophils % 1.5 % (0.1-12.0); Hematocrit 42.9 % (42.0-52.0); Hemoglobin 13.3 g/dL (14.1-18.0); Lymphocytes % 16.2 % (10-50); Mean Corpuscular Hemoglobin 26.3 pg (27.0-31.2); Mean Corpuscular Volume 84.8 fl (80-94); Mean Platelet Volume 9.9 fl (7.4-10.4); Monocytes # 0.4 K/mm3 (0.1-1.0); Monocytes % 6.5 % (1.7-9.3); Neutrophils # 4.4 K/mm3 (1.8-7.8); Neutrophils % 75.3 % (37.0-80.0); Platelet Count 131 K/mm3 (142-424); Red Blood Count 5.06 M/mm3 (4.60-6.20); Red Cell Distribution Width 16.5 % (11.5-17.5); White Blood Count 5.9 K/mm3 (4.8-10.8)
[2022-08-15 08:56] LABS: Alanine Aminotransferase 28 U/L (12-78); Albumin/Globulin Ratio 1.1 (1.1-1.8); Alkaline Phosphatase 174 U/L (38-126); Anion Gap 15.8 mEq/L (5-15); Aspartate Amino Transferase 35 U/L (17-59); Bilirubin,Total 0.5 mg/dl (0.2-1.3); Blood Urea Nitrogen 19 mg/dl (9-20); Calcium 9.3 mg/dl (8.4-10.2); Carbon Dioxide 28 mmol/L (22.0-30.0); Chloride 101 mmol/L (98-107); Estimated Glomerular Filt Rate 96 ml/min (>60); GFR (African American) 116 ML/MIN (>60); Globulin 3.5 g/dL (1.3-3.2); Glucose 171 mg/dl (74-100); Potassium 4.8 mmoL/L (3.5-5.1); Sodium 140 mmol/L (136-145); Total Protein,Serum 7.5 g/dl (6.3-8.2)
== END ==
PROVIDERS: PCP Nurse Practitioner Family; Visit Provider Orthopaedic Surgery
DX: G56.01 Carpal tunnel syndrome, right upper limb (principal); R06.09 Other forms of dyspnea; Z01.812 Encounter for preprocedural laboratory examination
CPT/HCPCS: 36415; 80053; 85025

== ENCOUNTER → 2022-09-11 13:55 | Outpatient (CLI) | payer MEDICARE, OTHER, SELFPAY | PROVIDERS: PCP Family Medicine; Visit Provider Family Medicine | DX: E11.628 Type 2 diabetes mellitus with other skin complications (principal); L08.9 Local infection of the skin and subcutaneous tissue, unspecified; Z79.84 Long term (current) use of oral hypoglycemic drugs | CPT/HCPCS: 83036 ==

== ENCOUNTER → 2022-10-07 10:54 | Outpatient (CLI) | payer MEDICARE, OTHER, SELFPAY ==
--- NOTE | 2022-10-07 10:58 | XR_ITS ---
FINAL REPORT CLINICAL HISTORY: neck pain..NO TRAUMA FINDINGS: CERVICAL SPINE Four views were obtained. There is no acute fracture. There is mild anterolisthesis of C3 on C4. There are moderate degenerative changes with multilevel osteophytes. There is no soft tissue abnormality. IMPRESSION: Moderate degenerative change with multilevel osteophytes. Mild anterolisthesis C3 on C4. Reviewed, Interpreted and Dictated by Horacio Solomon III, MD Transcribed by Sivan Malave Authenticated and [facility]
== END ==
PROVIDERS: PCP Family Medicine; Visit Provider Family Medicine
DX: M54.2 Cervicalgia (principal)
CPT/HCPCS: 72040

== ENCOUNTER 2022-10-10 12:53 | Emergency (ER) | payer MEDICARE, OTHER, SELFPAY ==
[2022-10-10 13:03] VITALS: BP 162/69; PULSE 74; RESP 18; TEMP 36.6; O2SAT 99; BMI 24.0
--- NOTE | 2022-10-10 13:18 | XR_ITS ---
FINAL REPORT CLINICAL HISTORY: PAIN. NO INJURY OR TRAUMA. BRUISING ON PROXIMAL ASPECT OF HUMERUS. FINDINGS: RIGHT HUMERUS Two views were obtained. There is no acute fracture or dislocation. There are mild degenerative changes of the acromioclavicular and glenohumeral joints. There is no soft tissue abnormality. IMPRESSION: No acute bony abnormality. Reviewed, Interpreted and Dictated by Horacio Solomon III, MD Transcribed by Sivan Malave Authenticated and [facility] [place]
[2022-10-10 13:50] VITALS: BP 131/83; PULSE 87; RESP 19; TEMP 36.9; O2SAT 97; BMI 24.2
--- NOTE | 2022-10-10 13:54 | EXP.UTC ---
Discharge Plan Disposition Patient Disposition: Home, Self-Care Condition: Good Prescriptions Prescriptions: New methylprednisolone 4 mg Tablets,Dose Pack 4 mg PO DIRECTED Qty: 21 0RF No Action furosemide [Lasix] 40 mg tablet 40 mg PO DAILY hydrocodone-acetaminophen 10-325 mg tablet 1 tab PO Q6HP PRN (Reason: pain) atorvastatin 10 mg tablet 10 mg PO HS omeprazole 20 mg capsule,delayed release(DR/EC) 20 mg PO BID (DME) lancets [FreeStyle Lancets] 28 gauge misc See Rx Instructions .ROUTE .MEDSUPPLY Qty: 100 Rx Instructions: As directed Cosentyx 150 mg/mL syringe 150 mg SQ Q4W Qty: 5 4RF Rx Instructions: 150 mg sub Q weekly for 5 doses then 150 mg sub Q every 4 weeks. gabapentin 800 mg tablet 800 mg PO TID (DME) pen needle, diabetic [Easy Comfort Pen [place]] 31 gauge x 3/16 needle See Rx Instructions .ROUTE .MEDSUPPLY Qty: 50 Rx Instructions: As directed Toujeo Max U-300 SoloStar 300 unit/mL (3 mL) insulin pen 60 unit SQ DAILY Ozempic 2 mg/dose (8 mg/3 mL) pen injector 0.7 mg SQ WEEKLY lisinopril 5 mg tablet 5 mg PO DAILY Qty: 90 1RF metoprolol tartrate 25 mg tablet 25 mg PO BID Qty: 180 1RF empagliflozin 25 mg tablet 25 mg PO DAILY 30 Days Qty: 30 2RF metformin 1,000 mg tablet 1,000 mg PO BID 30 Days Qty: 60 2RF potassium chloride 20 mEq tablet extended release 20 meq PO DAILY 30 Days Qty: 30 2RF aspirin 81 MG tablet,delayed release (DR/EC) 81 mg PO DAILY Referrals Follow up/Referrals: Francisco Cox JR, MD [Physician] - See instructions Silvio Mccain MD [Primary Care Provider] - See instructions Activity Restrictions/Add. Instructions Additional Instructions/Restrictions: Rest the extremity, apply ice for 15 minutes as tolerated three or four times per day, Wear the laura wrap for compression, Elevate the extremity as tolerated while you are resting. Take ibuprofen for pain. I sent in a prescription to your pharmacy. Follow up with Dr. Cox (orthopedics). I put in a referral but you need to call his office and schedule an appointment. Follow up with your regular doctor. GO TO THE ER FOR ANY WORSENING SYMPTOMS The methylprednisone (steroids) will cause your blood sugar to run higher than normal. Make sure you follow your diabetic diet closely and keep a good eye on your blood sugars while you are taking them. Wear the arm sling for a couple of days to rest your arm. Don't wear it after that, because holding your shoulder and arm steady like it does can cause your shoulder to stiffen up. But wearing it for a couple of days to rest your arm should not hurt anything. Clinical Impressions Clinical Impression: Pain in right shoulder, Pain of right upper arm Instructions Patient Instructions: Shoulder Tendinopathy, DI for Shoulder Pain, Methylprednisolone Discharge ED Provider: Angel Ramos [facility] General Stated complaint: pain in Rt arm, no accident Mode of Arrival: Ambulatory Source of Information: Patient Limitations: No Limitations Time Seen by Provider: 10/10/22 13:53 Description of Symptoms (Recalled from Triage Doc. by RN): . History of Present Illness Provider Complaint: He is here with c/o pain to RUE and bruising. Pt reports has been having pain for approx 6 months. Pt states no known injury. Pt reports had xray of of arm earlier this week, ordered per primary MD. Related Data Home Medications Medication Instructions Recorded Confirmed furosemide 40 mg tablet (Lasix) 40 mg PO DAILY Swelling 10/10/19 09/22/22 atorvastatin 10 mg tablet 10 mg PO HS hld 11/27/21 09/22/22 hydrocodone 10 mg-acetaminophen 1 tab PO Q6HP PRN pain 11/27/21 09/22/22 325 mg tablet omeprazole 20 mg capsule,delayed 20 mg PO BID GERD 11/27/21 09/22/22 release aspirin 81 mg tablet,delayed 81 mg PO DAILY HEART HEALTH 01/14/22 09/22/22 release lancets 28 gauge
[2022-10-10 15:03] VITALS: BP 131/83; PULSE 87; RESP 19; TEMP 36.9
== END 2022-10-10 15:04 | disposition home or self-care (01) ==
LOC: ER 13:04 → UTC 13:05
PROVIDERS: Emergency Provider Nurse Practitioner Family; PCP Family Medicine
DX: M25.511 Pain in right shoulder (principal); M79.601 Pain in right arm
CPT/HCPCS: 73060; 99212; G0463

== ENCOUNTER → 2022-10-17 09:27 | Outpatient (CLI) | payer MEDICARE, OTHER, SELFPAY ==
[2022-10-17 18:53] LABS: Basophils % 0.6 % (0.1-2.0); Eosinophils # 0.1 K/mm3 (0.0-0.4); Lymphocytes # 1.1 K/mm3 (0.7-4.5); Mean Corpuscular HGB Conc 31.9 g/dL (31.8-35.4); Mean Corpuscular Hemoglobin 26.4 pg (27.0-31.2); Mean Corpuscular Volume 82.9 fl (80-94); Monocytes # 0.4 K/mm3 (0.1-1.0); Neutrophils # 4.1 K/mm3 (1.8-7.8); Neutrophils % 71.4 % (37.0-80.0); Platelet Count 188 K/mm3 (142-424); Red Blood Count 5.31 M/mm3 (4.60-6.20); Red Cell Distribution Width 16.2 % (11.5-17.5); White Blood Count 5.7 K/mm3 (4.8-10.8)
== END ==
PROVIDERS: PCP Nurse Practitioner Family; Visit Provider Nurse Practitioner Family
DX: M79.601 Pain in right arm (principal)
CPT/HCPCS: 85025

== ENCOUNTER → 2022-11-18 10:23 | Outpatient (POV) | payer MEDICARE, OTHER, SELFPAY | PROVIDERS: Visit Provider Dermatology | DX: Z00.00 Encounter for general adult medical examination without abnormal findings (principal) ==

== ENCOUNTER → 2022-11-18 10:55 | Outpatient (CLI) | payer MEDICARE, OTHER, SELFPAY ==
[2022-11-18 11:54] LABS: Basophils % 0.3 % (0.1-2.0); Eosinophils # 0.1 K/mm3 (0.0-0.4); Eosinophils % 1.2 % (0.1-12.0); Hematocrit 41.4 % (42.0-52.0); Hemoglobin 13.3 g/dL (14.1-18.0); Lymphocytes # 1.2 K/mm3 (0.7-4.5); Lymphocytes % 16.8 % (10-50); Mean Corpuscular HGB Conc 32.1 g/dL (31.8-35.4); Mean Corpuscular Hemoglobin 26.3 pg (27.0-31.2); Mean Corpuscular Volume 81.9 fl (80-94); Mean Platelet Volume 8.5 fl (7.4-10.4); Monocytes # 0.5 K/mm3 (0.1-1.0); Monocytes % 7.6 % (1.7-9.3); Neutrophils # 5.2 K/mm3 (1.8-7.8); Platelet Count 181 K/mm3 (142-424); Red Blood Count 5.06 M/mm3 (4.60-6.20); Red Cell Distribution Width 16.6 % (11.5-17.5)
[2022-11-18 12:27] LABS: Alanine Aminotransferase 41 U/L (12-78); Albumin Level 4.4 g/dl (3.5-5.0); Albumin/Globulin Ratio 1.2 (1.1-1.8); Alkaline Phosphatase 159 U/L (38-126); Anion Gap 15.1 mEq/L (5-15); Aspartate Amino Transferase 50 U/L (17-59); Bilirubin,Total 0.7 mg/dl (0.2-1.3); Blood Urea Nitrogen 17 mg/dl (9-20); Calcium 9.3 mg/dl (8.4-10.2); Carbon Dioxide 27 mmol/L (22.0-30.0); Chloride 105 mmol/L (98-107); Estimated Glomerular Filt Rate 74 ml/min (>60); GFR (African American) 90 ML/MIN (>60); Globulin 3.6 g/dL (1.3-3.2); Glucose 59 mg/dl (74-100); Potassium 4.1 mmoL/L (3.5-5.1); Sodium 143 mmol/L (136-145)
[2022-11-20 21:17] LABS: QuantiFERON-TB Gold Plus Negative (Negative)
== END ==
PROVIDERS: Dermatology; PCP Family Medicine
DX: L40.8 Other psoriasis (principal)
CPT/HCPCS: 36415; 80053; 85025; 86480

== ENCOUNTER → 2023-01-20 13:50 | Outpatient (CLI) | payer MEDICARE, OTHER, SELFPAY ==
[2023-01-20 18:26] LABS: Anion Gap 15.1 mEq/L (5-15); Blood Urea Nitrogen 16 mg/dl (9-20); Calcium 8.6 mg/dl (8.4-10.2); Carbon Dioxide 27 mmol/L (22.0-30.0); Chloride 100 mmol/L (98-107); Estimated Glomerular Filt Rate 96 ml/min (>60); GFR (African American) 116 ML/MIN (>60); Glucose 160 mg/dl (74-100); Potassium 4.1 mmoL/L (3.5-5.1); Sodium 138 mmol/L (136-145)
== END ==
PROVIDERS: PCP Family Medicine; Visit Provider Family Medicine
DX: E11.42 Type 2 diabetes mellitus with diabetic polyneuropathy (principal); Z79.4 Long term (current) use of insulin
CPT/HCPCS: 80048; 83036

== ENCOUNTER 2023-03-10 23:39 | Emergency (ER) | payer MEDICARE, OTHER, SELFPAY ==
[2023-03-10 23:46] VITALS: BP 180/82; PULSE 102; RESP 22; TEMP 37.4; O2SAT 96; BMI 25.8
--- NOTE | 2023-03-10 23:46 | ECG_ITS ---
APPROVED REPORT Exam: Resting ECG HR:99 bpm ECG Measurements Heart Rate 99 AXES QRSd 97 QRS 98 QT 347 T 4 QTc 403 Conclusion SUPRAVENTRICULAR RHYTHM BORDERLINE RIGHT AXIS DEVIATION [QRS AXIS > 90] POSSIBLE RIGHT VENTRICULAR CONDUCTION DELAY [RSR (QR) IN V1/V2] ABNORMAL RHYTHM ECG UNCONFIRMED REPORT Electronically signed by : Gregorio Bird MD 03/11/2023 21:16:05
[2023-03-11] VITALS: BP 160/83; PULSE 101; O2SAT 96
[2023-03-11] LABS: Basophils % 0.2 % (0.1-2.0); Eosinophils # 0.1 K/mm3 (0.0-0.4); Eosinophils % 1.1 % (0.1-12.0); Hematocrit 36.7 % (42.0-52.0); Hemoglobin 11.9 g/dL (14.1-18.0); Lymphocytes % 10.9 % (10-50); Mean Corpuscular HGB Conc 32.4 g/dL (31.8-35.4); Mean Corpuscular Hemoglobin 25.9 pg (27.0-31.2); Mean Corpuscular Volume 79.9 fl (80-94); Mean Platelet Volume 9.6 fl (7.4-10.4); Monocytes # 0.5 K/mm3 (0.1-1.0); Neutrophils # 7.8 K/mm3 (1.8-7.8); Neutrophils % 82.8 % (37.0-80.0); Platelet Count 117 K/mm3 (142-424); Red Blood Count 4.59 M/mm3 (4.60-6.20); Red Cell Distribution Width 16.6 % (11.5-17.5); White Blood Count 9.4 K/mm3 (4.8-10.8)
--- NOTE | 2023-03-11 | XR_ITS ---
PROCEDURE INFORMATION: Exam: XR Chest Exam date and time: 03/11/2023 12:18 AM Age: 67 years old Clinical indication: Shortness of breath; Prior surgery; Surgery date: 6+ months; Surgery type: Open heart; Additional info: Shortness of air TECHNIQUE: Imaging protocol: Radiologic exam of the chest. Views: 2 views. COMPARISON: CR XR CHEST PORTABLE PICC PLAC 01/15/2022 10:36 AM FINDINGS: Lungs: Lungs are hyperinflated. Clear parenchyma. Pleural spaces: No pleural effusion. No pneumothorax. Heart/Mediastinum: Cardiac silhouette is normal in size for technique. Vasculature: Mediastinal surgical clips and vascular markers suggest prior myocardial revascularization. Bones/joints: Age appropriate. IMPRESSION: Hyperinflated but clear lungs. No other acute cardiopulmonary abnormality.
[2023-03-11 00:03] LABS: Chloride 96 mmol/L (98-107); Potassium 4.4 mmoL/L (3.5-5.1); Sodium 134 mmol/L (136-145)
[2023-03-11 00:05] LABS: Blood Urea Nitrogen 17 mg/dl (9-20); Creatinine Clearance Estimated 79 mL/min (50-200); Estimated Glomerular Filt Rate 84 ml/min (>60); GFR (African American) 102 ML/MIN (>60)
[2023-03-11 00:06] LABS: Alanine Aminotransferase 39 U/L (12-78); Albumin Level 3.8 g/dl (3.5-5.0); Albumin/Globulin Ratio 1.1 (1.1-1.8); Alkaline Phosphatase 113 U/L (38-126); Anion Gap 17.4 mEq/L (5-15); Aspartate Amino Transferase 56 U/L (17-59); Bilirubin,Total 0.8 mg/dl (0.2-1.3); Carbon Dioxide 25 mmol/L (22.0-30.0); Globulin 3.6 g/dL (1.3-3.2); Total Protein,Serum 7.4 g/dl (6.3-8.2)
[2023-03-11 00:07] LABS: Calcium 8.4 mg/dl (8.4-10.2); Glucose 243 mg/dl (74-100); Lactic Acid 2.1 mmol/L (0.7-2.1)
[2023-03-11 00:15] LABS: NT Pro Brain Natriuretic Pep. 1010 pg/mL (0-125)
[2023-03-11 00:15] LABS: Coronavirus 19, PCR Not Detected (NotDetected); Influenza A, PCR Not Detected (NotDetected); Influenza B, PCR Not Detected (NotDetected)
[2023-03-11 00:18] LABS: Troponin I 0.02 ng/ml (0.00-0.034)
[2023-03-11 00:21] LABS: Monoscreen (Rapid) Negative (Negative)
--- NOTE | 2023-03-11 00:22 | HMH.EDURI ---
Discharge Plan Disposition Patient Disposition: Home, Self-Care Condition: Good Prescriptions Prescriptions: New azithromycin [Zithromax Z-Carmine] 250 mg tablet See Rx Instructions .ROUTE .COMPLEX Qty: 6 0RF Rx Instructions: For 250 mg dose pack: take 500 mg today (day 1), then 250 mg for 4 days (days 2-5) methylprednisolone [Medrol (Carmine)] 4 mg tablets,dose pack 4 mg PO BID 5 Days Qty: 10 0RF albuterol sulfate 90 mcg/actuation HFA aerosol inhaler 2 inh inhalation Q6H PRN (Reason: shortness of breath or wheezing) Qty: 8.5 0RF loratadine [Claritin] 10 mg tablet 10 mg PO DAILY Qty: 30 0RF No Action hydrocodone-acetaminophen 10-325 mg tablet 1 tab PO Q6HP PRN (Reason: pain) (DME) lancets [FreeStyle Lancets] 28 gauge misc See Rx Instructions .ROUTE .MEDSUPPLY Qty: 100 Rx Instructions: As directed tadalafil [Cialis] 20 mg tablet 20 mg PO DAILY PRN (Reason: sexual activity) Qty: 10 5RF Rx Instructions: administer approximately 30min before sexual activity; do not use more than 1 dose per 24hrs insulin lispro protamin-lispro [Humalog Mix 75-25 KwikPen] 100 unit/mL (75-25) insulin pen 60 unit SQ BID 30 Days Qty: 36 3RF triamcinolone acetonide 0.1 % cream topical ofloxacin 0.3 % drops 10 drp otic (ear) DAILY 7 Days Qty: 10 0RF gabapentin 800 mg tablet 800 mg PO TID (DME) pen needle, diabetic [Easy Comfort Pen [place]] 31 gauge x 3/16 needle See Rx Instructions .ROUTE .MEDSUPPLY Qty: 50 Rx Instructions: As directed lisinopril 5 mg tablet 5 mg PO DAILY Qty: 90 1RF omeprazole 20 mg capsule,delayed release(DR/EC) 20 mg PO BID 90 Days Qty: 180 0RF diclofenac sodium [Voltaren Arthritis Pain] 1 % gel 4 g topical QID Qty: 100 2RF Rx Instructions: apply to neck Cosentyx Pen (2 Pens) 150 mg/mL pen injector 150 mg SQ WEEKLY potassium chloride 20 mEq tablet extended release 20 meq PO DAILY 30 Days Qty: 30 2RF metformin 1,000 mg tablet 1,000 mg PO BID 30 Days Qty: 60 2RF metoprolol tartrate 25 mg tablet 25 mg PO BID 30 Days Qty: 60 2RF atorvastatin 10 mg tablet See Rx Instructions .ROUTE .COMPLEX Qty: 90 0RF Dose Instruction: TAKE 1 TABLET BY MOUTH EVERY EVENING Rx Instructions: TAKE 1 TABLET BY MOUTH EVERY EVENING Jardiance 25 mg tablet See Rx Instructions .ROUTE .COMPLEX Qty: 30 3RF Dose Instruction: TAKE 1 TABLET BY MOUTH DAILY FOR DIABETES FOR 30 DAYS Rx Instructions: TAKE 1 TABLET BY MOUTH DAILY FOR DIABETES FOR 30 DAYS furosemide 40 mg tablet See Rx Instructions .ROUTE .COMPLEX Qty: 90 0RF Dose Instruction: TAKE 1 TABLET BY MOUTH ONCE DAILY FOR SWELLING Rx Instructions: TAKE 1 TABLET BY MOUTH ONCE DAILY FOR SWELLING aspirin 81 MG tablet,delayed release (DR/EC) 81 mg PO DAILY Referrals Follow up/Referrals: Silvio Mccain MD [Primary Care Provider] - See instructions Activity Restrictions/Add. Instructions Additional Instructions/Restrictions: You have been coughing a lot because you have some drainage in the back of the throat which is making your throat sore. He also have some cervical spine muscle spasm which you were given a dose of Valium for. Use some heating pad use Tylenol or ibuprofen for pain. I gave you a steroid Dosepak for your cough, Zithromax pack, Claritin, albuterol inhaler and follow-up with the primary care doctor as an outpatient. Clinical Impressions Clinical Impression: Acute bronchitis, Pharyngitis, Cervical paraspinous muscle spasm Instructions Patient Instructions: DI for Acute Bronchitis Discharge ED Provider: Danielle Tim/Sore Throat HPI General Chief Complaint: Upper Respiratory Infection Stated Complaint: Cough, SOA, neck pain Time Seen by Provider: 03/10/23 23:50 Mode of Arrival: Family Vehicle Source of Information: Patient Limitations: No Limitations Description of Sy
[2023-03-11 00:31] VITALS: BP 175/84; PULSE 100; O2SAT 94
[2023-03-11 01:01] VITALS: BP 134/66; PULSE 92; O2SAT 95
--- NOTE | 2023-03-11 01:16 | PC.NURSE ---
strep swab collected and sent to lab.
[2023-03-11 01:27] LABS: Strep Scrn Group A (Rapid) Negative (Negative)
[2023-03-11 01:59] VITALS: BP 122/76; PULSE 67; RESP 16; TEMP 36.7; O2SAT 99
== END 2023-03-11 02:01 | disposition home or self-care (01) ==
PROVIDERS: Emergency Provider Emergency Medicine; PCP Family Medicine
DX: J20.9 Acute bronchitis, unspecified (principal); J02.9 Acute pharyngitis, unspecified; M62.838 Other muscle spasm; Z87.891 Personal history of nicotine dependence; R06.02 Shortness of breath; I44.0 Atrioventricular block, first degree
CPT/HCPCS: 71046; 80053; 83605; 83880; 84484; 85025; 86318; 87040; 87430; 93005; 96374; 96375; 96376; 99285; C9803; J0131; U0003; U0005

== ENCOUNTER → 2023-03-26 07:45 | Outpatient (CLI) | payer MEDICARE, OTHER, SELFPAY ==
--- NOTE | 2023-03-26 07:51 | XR_ITS ---
FINAL REPORT CLINICAL HISTORY: shoulder pain FINDINGS: Right shoulder Three views were obtained. There is no acute fracture or dislocation. There is mild AC joint and glenohumeral joint degenerative change. No soft tissue abnormality is identified. IMPRESSION: Mild degenerative changes. Reviewed, Interpreted and Dictated by Horacio Solomon III, MD Transcribed by Adelaide Fernandez Authenticated and [facility]
--- NOTE | 2023-03-26 07:51 | XR_ITS ---
FINAL REPORT CLINICAL HISTORY: shoulder pain FINDINGS: Left shoulder Three views were obtained. There is no acute fracture or dislocation. There is mild AC joint and glenohumeral joint degenerative change. No soft tissue abnormality is identified. IMPRESSION: Mild degenerative changes. Reviewed, Interpreted and Dictated by Horacio Solomon III, MD Transcribed by Adelaide Fernandez Authenticated and . [facility]
== END ==
PROVIDERS: PCP Family Medicine; Visit Provider Family Medicine
DX: M25.511 Pain in right shoulder (principal); M25.512 Pain in left shoulder
CPT/HCPCS: 73030

== ENCOUNTER 2023-05-03 17:17 | Emergency (ER) | payer MEDICARE, OTHER, SELFPAY ==
[2023-05-03 17:18] VITALS: BP 154/72; PULSE 74; RESP 16; TEMP 36.6; O2SAT 98; BMI 25.4
--- NOTE | 2023-05-03 17:38 | HMH.EDSKAF ---
Discharge Plan Disposition Patient Disposition: Home, Self-Care Condition: Good Chief Complaint: Skin/Abscess/Foreign Body Prescriptions Prescriptions: No Action hydrocodone-acetaminophen 10-325 mg tablet 1 tab PO Q6HP PRN (Reason: pain) (DME) lancets [FreeStyle Lancets] 28 gauge misc See Rx Instructions .ROUTE .MEDSUPPLY Qty: 100 Rx Instructions: As directed tadalafil [Cialis] 20 mg tablet 20 mg PO DAILY PRN (Reason: sexual activity) Qty: 10 5RF Rx Instructions: administer approximately 30min before sexual activity; do not use more than 1 dose per 24hrs gabapentin 800 mg tablet 800 mg PO TID (DME) pen needle, diabetic [Easy Comfort Pen [place]] 31 gauge x 3/16 needle See Rx Instructions .ROUTE .MEDSUPPLY Qty: 50 Rx Instructions: As directed lisinopril 5 mg tablet 5 mg PO DAILY Qty: 90 1RF omeprazole 20 mg capsule,delayed release(DR/EC) 20 mg PO BID 90 Days Qty: 180 0RF diclofenac sodium [Voltaren Arthritis Pain] 1 % gel 4 g topical QID Qty: 100 2RF Rx Instructions: apply to neck Cosentyx Pen (2 Pens) 150 mg/mL pen injector 150 mg SQ WEEKLY ipratropium bromide 0.02 % solution 2.5 ml inhalation Q12H Qty: 150 2RF albuterol sulfate 90 mcg/actuation HFA aerosol inhaler 2 inh inhalation Q6H PRN (Reason: shortness of breath or wheezing) Qty: 8.5 0RF doxycycline hyclate 100 mg capsule 100 mg PO BID 10 Days Qty: 20 0RF potassium chloride 20 mEq tablet extended release 20 meq PO DAILY 30 Days Qty: 30 2RF metoprolol tartrate 25 mg tablet 25 mg PO BID 30 Days Qty: 60 2RF atorvastatin 10 mg tablet See Rx Instructions .ROUTE .COMPLEX Qty: 90 0RF Dose Instruction: TAKE 1 TABLET BY MOUTH EVERY EVENING Rx Instructions: TAKE 1 TABLET BY MOUTH EVERY EVENING metformin 1,000 mg tablet See Rx Instructions .ROUTE .COMPLEX Qty: 60 1RF Dose Instruction: TAKE 1 TABLET BY MOUTH TWICE A DAY FOR DIABETES FOR 30 DAYS Rx Instructions: TAKE 1 TABLET BY MOUTH TWICE A DAY FOR DIABETES FOR 30 DAYS insulin lispro protamin-lispro [Humalog Mix 75-25 KwikPen] 100 unit/mL (75-25) insulin pen See Rx Instructions .ROUTE .COMPLEX Qty: 30 2RF Dose Instruction: 60 UNIT (0.6 ML) SUBCUTANEOUSLY TWICE A DAY FOR DIABETES MELLITUS Rx Instructions: 60 UNIT (0.6 ML) SUBCUTANEOUSLY TWICE A DAY FOR DIABETES MELLITUS furosemide 40 mg tablet See Rx Instructions .ROUTE .COMPLEX Qty: 90 0RF Dose Instruction: TAKE 1 TABLET BY MOUTH ONCE DAILY FOR SWELLING Rx Instructions: TAKE 1 TABLET BY MOUTH ONCE DAILY FOR SWELLING loratadine [Claritin] 10 mg tablet 10 mg PO DAILY Qty: 30 0RF Referrals Follow up/Referrals: Silvio Mccain MD [Primary Care Provider] - See instructions Activity Restrictions/Add. Instructions Additional Instructions/Restrictions: Follow-up with your primary care doctor in about 3 days. Return to the emergency department if symptoms worsen. Wear long sleeves and stay out of the sun for the next few days. You can use [id number] sunburn medication as directed. You can also take Tylenol for the pain. Clinical Impressions Clinical Impression: Sunburn Instructions Patient Instructions: DI for Sunburn, How to Avoid Sunburn Discharge ED Provider: Brie Olivera Skin/Abscess/FB HPI General Chief complaint: Skin/Abscess/Foreign Body Stated complaint: poss sun poisoning Time Seen by Provider: 05/03/23 17:38 Mode of Arrival: Ambulatory Source of Information: Patient Limitations: No Limitations Description of Symptoms (Recalled from ER Triage Doc. by RN): Redness noted to arthur hands, pt reports burning type pain. Blister noted to L hand. Pt reports redness noted this morning. Pt states no know allergens or changes in deteregent. History of Present Illness HPI narrative: The patient presents to the emergency department complaining of a rash on both fore
[2023-05-03 17:58] VITALS: BP 153/68; PULSE 74; RESP 16; TEMP 36.6; O2SAT 96
== END 2023-05-03 18:01 | disposition home or self-care (01) ==
PROVIDERS: Emergency Provider Emergency Medicine; PCP Family Medicine
DX: L55.9 Sunburn, unspecified (principal); I25.10 Atherosclerotic heart disease of native coronary artery without angina pectoris; E11.9 Type 2 diabetes mellitus without complications; I10 Essential (primary) hypertension; E78.5 Hyperlipidemia, unspecified; I25.2 Old myocardial infarction
CPT/HCPCS: 99282; 99283

== ENCOUNTER → 2023-05-14 14:38 | Outpatient (CLI) | payer MEDICARE, OTHER, SELFPAY ==
--- NOTE | 2023-05-14 14:41 | CT_ITS ---
FINAL REPORT TECHNIQUE: Thin section axial CT images of the facial bones and sinuses were obtained without contrast. Coronal reformatted images were also obtained.This study was performed with techniques to keep radiation doses as low as reasonably achievable, (ALARA). Individualized dose reduction techniques using automated exposure control or adjustment of mA and/or kV according to the patient''''s size were employed. CLINICAL HISTORY: sinusitis COMPARISON: 08/13/2019 FINDINGS: There is mild mucosal thickening of the right maxillary sinus, partially improved. There is mild mucosal thickening of several ethmoid air cells. No fluid levels are identified. The ostiomeatal units have an unremarkable appearance. There is nasal septal deviation to the left with a left-sided nasal septal spur. No fracture or acute bony abnormality is identified. IMPRESSION: Sinusitis as above. Reviewed, Interpreted and Dictated by Horacio Solomon III, MD Transcribed by Adelaide Fernandez Authenticated and [facility]
== END ==
PROVIDERS: PCP Family Medicine; Visit Provider Nurse Practitioner
DX: J32.9 Chronic sinusitis, unspecified (principal)
CPT/HCPCS: 70486

== ENCOUNTER → 2023-06-23 08:49 | Outpatient (CLI) | payer MEDICARE, OTHER, SELFPAY ==
[2023-06-23 09:28] LABS: Basophils % 0.2 % (0.1-2.0); Eosinophils # 0.1 K/mm3 (0.0-0.4); Eosinophils % 2.4 % (0.1-12.0); Hematocrit 37.6 % (42.0-52.0); Hemoglobin 12.3 g/dL (14.1-18.0); Lymphocytes # 0.8 K/mm3 (0.7-4.5); Lymphocytes % 21.4 % (10-50); Mean Corpuscular HGB Conc 32.7 g/dL (31.8-35.4); Mean Corpuscular Hemoglobin 27.6 pg (27.0-31.2); Mean Corpuscular Volume 84.4 fl (80-94); Monocytes # 0.3 K/mm3 (0.1-1.0); Monocytes % 8.2 % (1.7-9.3); Neutrophils # 2.7 K/mm3 (1.8-7.8); Neutrophils % 67.8 % (37.0-80.0); Platelet Count 108 K/mm3 (142-424); Red Blood Count 4.45 M/mm3 (4.60-6.20); Red Cell Distribution Width 16.1 % (11.5-17.5); White Blood Count 3.9 K/mm3 (4.8-10.8)
[2023-06-23 09:45] LABS: Hemoglobin A1C 7.6 % (4.0-6.0)
[2023-06-23 09:54] LABS: Chloride 104 mmol/L (98-107); Sodium 141 mmol/L (136-145)
[2023-06-23 09:55] LABS: Potassium 4.7 mmoL/L (3.5-5.1)
[2023-06-23 09:57] LABS: Alanine Aminotransferase 54 U/L (12-78); Albumin Level 3.5 g/dl (3.5-5.0); Alkaline Phosphatase 172 U/L (38-126); Anion Gap 13.7 mEq/L (5-15); Aspartate Amino Transferase 54 U/L (17-59); Bilirubin,Direct 0.3 mg/dl (0.0-0.4); Bilirubin,Indirect 0.3 mg/dL (0.0-0.9); Bilirubin,Total 0.6 mg/dl (0.2-1.3); Bilirubin,Unconjugated 0.3 mg/dL (0.0-1.1); Blood Urea Nitrogen 16 mg/dl (9-20); Calcium 9.4 mg/dl (8.4-10.2); Carbon Dioxide 28 mmol/L (22.0-30.0); Cholesterol 154 mg/dl (140-200); Estimated Glomerular Filt Rate 96 ml/min (>60); GFR (African American) 116 ML/MIN (>60); Glucose 154 mg/dl (74-100); Total Protein,Serum 6.8 g/dl (6.3-8.2); Triglycerides 179 mg/dl (30-150); VLDL Cholesterol 36 mg/dL (0-40)
[2023-06-23 09:58] LABS: Chol/HDL Ratio 5.1 (1-3.5); HDL Cholesterol 30 mg/dl (40-60)
[2023-06-23 10:09] LABS: Direct LDL Cholesterol 72.82 mg/dL (100-129)
[2023-06-23 10:13] LABS: Free T4 (Free Thyroxine) 1.04 ng/dl (0.78-2.19)
[2023-06-23 10:27] LABS: Thyroid Stimulating Hormone 2.27 uIU/mL (0.465-4.68)
== END ==
PROVIDERS: PCP Internal Medicine; Visit Provider Nurse Practitioner
DX: E11.9 Type 2 diabetes mellitus without complications (principal); E78.5 Hyperlipidemia, unspecified; I25.10 Atherosclerotic heart disease of native coronary artery without angina pectoris; I63.9 Cerebral infarction, unspecified; J44.9 Chronic obstructive pulmonary disease, unspecified; R06.00 Dyspnea, unspecified; R60.9 Edema, unspecified; R94.31 Abnormal electrocardiogram [ECG] [EKG]; Z79.4 Long term (current) use of insulin; Z95.1 Presence of aortocoronary bypass graft; I11.9 Hypertensive heart disease without heart failure
CPT/HCPCS: 36415; 80048; 80061; 80076; 83036; 84439; 84443; 85025

== ENCOUNTER 2023-07-07 08:15 | Day surgery (SDC) | payer MEDICARE, OTHER, SELFPAY ==
[2023-07-07] VITALS (8 sets, daily range): BP systolic 104–180; BP diastolic 64–94; PULSE 57–82; RESP 16–18; TEMP 36.2–36.7; O2SAT 94–100; BMI 26.6
[2023-07-07 09:38] LABS: POC Glucose,Bedside 170 (70-110)
--- NOTE | 2023-07-07 09:41 | P.PNANES_ITS ---
[facility] Disclaimer: The information contained in this section may have been updated after the patient was seen, as this information can be updated by other users. Medical History Amputation of toe of left foot CAD, multiple vessel Chronic sinusitis Deviated nasal septum Diabetic foot Dyspnea Erectile dysfunction Gangrene of toe of left foot History of amputation of toe History of diabetes mellitus, type II History of hyperlipidemia History of hypertension Nail dystrophy Non-STEMI (non-ST elevated myocardial infarction) Psoriasis Sinus mucosal thickening Surgical History History of amputation of toe Hx of cataract surgery S/P CABG x 6 Family History Mother Heart attack Social History Smoking Status: Never smoker smoking status stop date: 11/02/2001 second hand exposure: Yes alcohol intake: former substance use type: denies use current occupational status: disabled Travel in the last 8 weeks: None household members: none housing: apartment caffeine: Yes [facility] Anesthesia Checklist Patient Identification Patient Identification: Arm Band and Family Structural Data Admitted From: Home Planned Operative Procedure/s: FESS Consent for Planned Operative Procedure(s) Verified: Yes NPO Status Verified Time NPO: 00:00 Additional verifications Patient : No Anesthesia Reactions: No Hx Blood Transfusions: No Blood Transfusion Reaction: No Cephalosporin Allergy: No Previous Colonoscopy: Yes Cardiovascular Assessment Peripheral Edema: No Airway Assessment Mallampati Score:: Class II C-Spine Mobility Assessed: Yes Dentition: Poor Dentition Neurological Assessment Level of Consciousness: Awake, Alert, Appropriate and Follows Commands Hx Seizures: No Numbness or tingling in extremities: No Anesthesia Plan Anesthesia Risk discussed: Yes ASA Class: III Anesthesia Type: General Preoperative Comments Pre-Operative Comments: IDDM glucose at [id number]. Some GI anomaly to be re- evaluated next month with colonoscopy. CABG 3+years ago. No Mi. Stents. heavy mosher.
--- NOTE | 2023-07-07 12:34 | EXP.ANES.I ---
[facility] Anesthesia Record Part I Anesthesia Record I Intake, IV Amount: 1,000 Hydration: Adequate Estimated blood loss (mL): 5 Urine output (mL): 0 Blood Products used (#): none Blood Pressure: 104/64 SaO2: 94 Pulse Rate: 68 Airway Patency: Patent Respiratory Rate: 16 Temperature: 98.1 F Patient is:: Drowsy and Stable Stable to PACU at:: 12:35
--- NOTE | 2023-07-07 12:35 | EXP.OP.NOTE ---
Date of procedure: 07/07/23 Pre-op Diagnosis:: Chronic sinusitis, deviated septum Post-op Diagnosis:: Chronic sinusitis, deviated septum Procedure performed:: Revision septoplasty, functional endoscopic sinus surgery with nasal endoscopy and bilateral partial ethmoidectomy, nasal endoscopy and bilateral maxillary antrostomies Surgeon:: Rj Vickers MD MICRO LAB ANALYST:: Ariel Adkins Anesthesia: GETA Estimated blood loss (mL): 50 Operative findings:: Severely deviated septum anteriorly to the left posteriorly to the right with large cartilaginous and bony spur on the left and obstruction of the left OMCs Operative note:: The patient was brought to the operating room and after adequate general anesthesia in the usual sterile fashion and 1% lidocaine with epinephrine used to locally infiltrate the septum and middle meatuses. Right hemitransfixion incision was made and mucoperichondrial flaps elevated off the bony and cartilaginous septum bilaterally. Previously, a portion of the cartilaginous septum has been resected 03 is the mucoperichondrial flaps. Cartilaginous septum was then mobilized and brought back over the psychiatrist short Millimeter 2 mm attention enlarged bony posterior floor the nose on the left side and then the mucoperichondrial flaps returned to anatomic position and held in place with a 4-0 plain gut horizontal suture and hemitransfixion incision closed with 4-0 chromic. Using a 0 degree sinus endoscope the right middle meatus was visualized in the middle turbinate was medialized. Uncinectomy was performed with a pediatric backbiter and microdebrider. A nasal polypectomy was given. The natural ostium the maxillary sinus was then enlarged including mucosal disease to the maxillary sinus well aerated. Anterior ethmoidectomy was then performed working through the ethmoid bulla to clear disease polypoid mucosa in the anterior ethmoid loss sparing normal mucosa posteriorly. This was done with a microdebrider. Nova pack was placed in the right middle meatus and attention to the left side is in the middle continues medialized and then uncinectomy again performed. The natural ostium of the maxillary sinus was then enlarged and cleared of obstructing mucosal disease in the anterior ethmoidectomy again performed working through the ethmoid bulla to clear disease polypoid mucosa in the anterior ethmoid cells while sparing normal mucosa posteriorly. Resorbable packing was not placed in the left middle meatus. When this was placed on the septum this was since seen. The columella using 3-0 nylon remains and the procedure was concluded. Patient had blood loss less than 50 mL. All counts were correct. Condition: stable Disposition: PACU Complications:: none
[2023-07-07 12:47] LABS: POC Glucose,Bedside 166 (70-110)
--- NOTE | 2023-07-08 10:34 | EXP.ANES.II ---
[facility] Anesthesia Record Part II Anesthesia Record Part II Discharge Time: 13:15 Destination: Surgical Day Care (OP Surgery) PACU nurse assessment reviewed?: Yes Patient Condition:: Good Anesthesia Complications:: None Swallowing reflex intact?: Yes Airway Patency: Patent Cyanosis?: No Blood Pressure: 169/80 SaO2: 98 Respiratory Rate: 18 Pulse Rate: 76 Temperature: 97.2 F Mental Status: Alert & Oriented Pain level:: 0 Nausea and/or vomitting:: None Intake, IV Amount: 0 Hydration: Adequate
[2023-07-08 10:36] VITALS: BP 169/80; PULSE 76; RESP 18; TEMP 36.2; O2SAT 98
== END 2023-07-07 13:45 | disposition home or self-care (01) ==
PROVIDERS: PCP Family Medicine; Visit Provider Otolaryngology
PROC: (CPT 30520; principal; 2023-07-07 10:15)
DX: J32.9 Chronic sinusitis, unspecified (principal); J34.2 Deviated nasal septum; D16.4 Benign neoplasm of bones of skull and face; E11.9 Type 2 diabetes mellitus without complications
CPT/HCPCS: 30520; 31254; 31256; 82962; 88305; 88311; 96374; J2405

== ENCOUNTER 2023-09-13 17:30 | Emergency (ER) | payer MEDICARE, MEDICAID, SELFPAY ==
[2023-09-13] VITALS (10 sets, daily range): BP systolic 122–155; BP diastolic 66–98; PULSE 82–89; RESP 15–16; TEMP 36.7–36.8; O2SAT 95–99; BMI 25.8
--- NOTE | 2023-09-13 17:54 | XR_ITS ---
PROCEDURE INFORMATION: Exam: XR Left Shoulder Exam date and time: 09/13/2023 5:53 PM Age: 68 years old Clinical indication: Pain; Shoulder; Left; Additional info: L shoulder pain TECHNIQUE: Imaging protocol: Radiologic exam of the left shoulder. Views: 2 or more views. COMPARISON: CR XR SHOULDER LT MIN 2V 03/26/2023 7:55 AM FINDINGS: Bones/joints: Arthritic changes noted in the left acromioclavicular and glenohumeral joint. Diffuse osteopenia noted. No acute fracture or dislocation. No acute abnormalities involving adjacent left hemithorax. Soft tissues: No acute abnormality. IMPRESSION: 1. No acute osseous abnormality 2. Left shoulder arthritic change and osteopenia noted
--- NOTE | 2023-09-13 17:57 | HMH.EDGENADL ---
Discharge Plan Disposition Patient Disposition: Home, Self-Care Chief Complaint: PAIN Prescriptions Prescriptions: No Action hydrocodone-acetaminophen 10-325 mg tablet 1 tab PO Q6HP PRN (Reason: pain) (DME) lancets [FreeStyle Lancets] 28 gauge misc See Rx Instructions .ROUTE .MEDSUPPLY Qty: 100 Rx Instructions: As directed tadalafil [Cialis] 20 mg tablet 20 mg PO DAILY PRN (Reason: sexual activity) Qty: 10 5RF Rx Instructions: administer approximately 30min before sexual activity; do not use more than 1 dose per 24hrs [place] Saline 0.65 % aerosol,spray 2 spray intranasal QID PRN (Reason: dry nasal passages) Qty: 50 0RF (DME) pen needle, diabetic [Easy Comfort Pen [place]] 31 gauge x 3/16 needle See Rx Instructions .ROUTE .MEDSUPPLY Qty: 50 Rx Instructions: As directed Cosentyx Pen (2 Pens) 150 mg/mL pen injector 150 mg SQ WEEKLY albuterol sulfate 90 mcg/actuation HFA aerosol inhaler 2 inh inhalation Q6H PRN (Reason: shortness of breath or wheezing) Qty: 8.5 0RF lisinopril 5 mg tablet 5 mg PO DAILY Qty: 90 1RF metoprolol tartrate 25 mg tablet 25 mg PO BID 30 Days Qty: 60 2RF omeprazole 20 mg capsule,delayed release(DR/EC) 20 mg PO BID 90 Days Qty: 180 0RF potassium chloride 20 mEq tablet extended release 20 meq PO DAILY 30 Days Qty: 30 2RF furosemide 40 mg tablet 40 mg PO DAILY Qty: 90 3RF diclofenac sodium 50 mg tablet,delayed release (DR/EC) 50 mg PO BID 90 Days Qty: 180 0RF metformin 1,000 mg tablet See Rx Instructions .ROUTE .COMPLEX Rx Instructions: TAKE 1 TABLET BY MOUTH TWICE A DAY FOR DIABETES FOR 30 DAYS loratadine [Claritin] 10 mg tablet 10 mg PO DAILY ipratropium bromide 0.02 % solution 2.5 ml inhalation Q12H insulin lispro protamin-lispro [Humalog Mix 75-25 KwikPen] 100 unit/mL (75-25) insulin pen See Rx Instructions .ROUTE .COMPLEX Rx Instructions: 60 UNIT (0.6 ML) SUBCUTANEOUSLY TWICE A DAY FOR DIABETES MELLITUS Ozempic 0.25 mg or 0.5 mg (2 mg/3 mL) pen injector 0.25 mg SQ WEEKLY Rx Instructions: for 4 weeks atorvastatin 20 mg tablet 20 mg PO DAILY atorvastatin 10 mg tablet See Rx Instructions .ROUTE .COMPLEX Rx Instructions: TAKE 1 TABLET BY MOUTH EVERY EVENING gabapentin 800 mg tablet 800 mg PO QID Rx Instructions: This is written by Pain Management [phone] Dr. Coley ondansetron 4 mg tablet,disintegrating 4 mg PO Q6H 3 Days Qty: 12 0RF Referrals Follow up/Referrals: Silvio Mccain MD [Primary Care Provider] - See instructions Activity Restrictions/Add. Instructions Additional Instructions/Restrictions: You have been evaluated in the ED for your complaints. You may follow-up with your PCP in the next 3 to 5 days. Please return to ED for any new or worsening symptoms. Please take Tylenol and ibuprofen as needed for pain. As discussed please follow-up with your physical therapist for strength and mobility exercises for your left shoulder in the setting of arthritis. Clinical Impressions Clinical Impression: Left shoulder pain Instructions Patient Instructions: DI for Shoulder Pain Discharge ED Provider: Kvng [facility] Adult HPI General Chief complaint: PAIN Stated complaint: Left shoulder pain no injury Time Seen by Provider: 09/13/23 17:47 Mode of Arrival: Ambulatory Source of Information: Patient Limitations: No Limitations Description of Symptoms (Recalled from ER Triage Doc. by RN): pt reports left shoulder pain ongoing for 3 days. pt reports he does not remember doing anything to hurt his shoulder. pt states that he is disabled and does not work. History of Present Illness HPI narrative: 68-year-old male with past medical history significant for COPD, CAD, CABG x6, NSTEMI, HLD, HTN, DM 2, presents today for evaluation concerning left shoulder pain over the past 3 days. Denies any ass
--- NOTE | 2023-09-13 18:16 | ECG_ITS ---
APPROVED REPORT Exam: Resting ECG HR:86 bpm ECG Measurements Heart Rate 86 AXES TX 180 P -17 QRSd 101 QRS 131 QT 347 T -9 QTc 390 Conclusion SINUS RHYTHM ABNORMAL ECG UNCONFIRMED REPORT Electronically signed by : Gregorio Bird MD 09/15/2023 20:15:02
== END 2023-09-13 19:46 | disposition home or self-care (01) ==
PROVIDERS: Emergency Provider Emergency Medicine; PCP Family Medicine
DX: M25.512 Pain in left shoulder (principal); M19.012 Primary osteoarthritis, left shoulder; J44.9 Chronic obstructive pulmonary disease, unspecified; E11.9 Type 2 diabetes mellitus without complications; I11.9 Hypertensive heart disease without heart failure; I25.10 Atherosclerotic heart disease of native coronary artery without angina pectoris; E78.5 Hyperlipidemia, unspecified; Z79.4 Long term (current) use of insulin; Z79.84 Long term (current) use of oral hypoglycemic drugs; Z79.85 Long-term (current) use of injectable non-insulin antidiabetic drugs; Z87.891 Personal history of nicotine dependence; Z95.5 Presence of coronary angioplasty implant and graft
CPT/HCPCS: 73030; 93005; 99283

== ENCOUNTER 2023-11-05 09:25 | Outpatient (CLI) | payer MEDICARE, MEDICAID, SELFPAY ==
--- NOTE | 2023-11-05 09:31 | XR_ITS ---
FINAL REPORT CLINICAL HISTORY: Check for infection left foot COMPARISON: 06/23/2022 FINDINGS: LEFT FOOT: Three views of the left foot were obtained. Postoperative changes from amputation of the first, second, and third digits. There is no acute fracture or dislocation. There is mild degenerative change. There is a small calcaneal spur. There is calcification in the region of the posterior plantar aponeurosis. No acute bony erosion is seen. IMPRESSION: Postoperative and degenerative changes without acute bony abnormality. Reviewed, Interpreted and Dictated by Horacio Solomon III, MD Transcribed by Leeann Luevano Authenticated and [facility]
--- NOTE | 2023-11-05 09:31 | XR_ITS ---
FINAL REPORT CLINICAL HISTORY: Check for infection right foot COMPARISON: 06/23/2022 FINDINGS: RIGHT FOOT: Three views of the right foot were obtained. There are postoperative changes from transmetatarsal amputation. There is no acute fracture or dislocation. There is mild degenerative change. Calcaneal spurs are noted. There is no soft tissue abnormality. IMPRESSION: Postoperative and degenerative change with acute bony abnormality. Reviewed, Interpreted and Dictated by Horacio Solomon III, MD Transcribed by Leeann Luevano Authenticated and [facility]
[2023-11-05 10:14] LABS: Basophils % 0.4 % (0.1-2.0); Eosinophils # 0.1 K/mm3 (0.0-0.4); Eosinophils % 2.7 % (0.1-12.0); Hematocrit 37.4 % (42.0-52.0); Hemoglobin 12.2 g/dL (14.1-18.0); Lymphocytes # 0.6 K/mm3 (0.7-4.5); Lymphocytes % 13.7 % (10-50); Mean Corpuscular HGB Conc 32.6 g/dL (31.8-35.4); Mean Corpuscular Hemoglobin 27.9 pg (27.0-31.2); Mean Corpuscular Volume 85.6 fl (80-94); Monocytes # 0.3 K/mm3 (0.1-1.0); Monocytes % 7.4 % (1.7-9.3); Neutrophils # 3.3 K/mm3 (1.8-7.8); Neutrophils % 75.8 % (37.0-80.0); Platelet Count 121 K/mm3 (142-424); Red Blood Count 4.37 M/mm3 (4.60-6.20); Red Cell Distribution Width 15.5 % (11.5-17.5); White Blood Count 4.4 K/mm3 (4.8-10.8)
[2023-11-05 10:18] LABS: Hemoglobin A1C 10.3 % (4.0-6.0)
[2023-11-05 10:33] LABS: Chloride 101 mmol/L (98-107); Potassium 4.4 mmoL/L (3.5-5.1); Sodium 138 mmol/L (136-145)
[2023-11-05 10:36] LABS: Alanine Aminotransferase 81 U/L (12-78); Albumin Level 3.6 g/dl (3.5-5.0); Albumin/Globulin Ratio 1.1 (1.1-1.8); Alkaline Phosphatase 260 U/L (38-126); Anion Gap 14.4 mEq/L (5-15); Aspartate Amino Transferase 67 U/L (17-59); Bilirubin,Total 0.8 mg/dl (0.2-1.3); Blood Urea Nitrogen 18 mg/dl (9-20); Calcium 8.5 mg/dl (8.4-10.2); Carbon Dioxide 27 mmol/L (22.0-30.0); Estimated Glomerular Filt Rate 74 ml/min (>60); GFR (African American) 90 ML/MIN (>60); Globulin 3.4 g/dL (1.3-3.2); Glucose 214 mg/dl (74-100)
[2023-11-05 10:42] LABS: C-Reactive Protein 21.8 mg/L (0-4)
[2023-11-05 11:11] LABS: Erythrocyte Sedimentation Rate 41 mm/hr (0-20)
== END 2023-11-05 23:59 ==
LOC: LAB 09:27
PROVIDERS: PCP Family Medicine; Visit Provider Podiatrist
DX: M79.673 Pain in unspecified foot (principal); E11.8 Type 2 diabetes mellitus with unspecified complications; Z51.89 Encounter for other specified aftercare; E11.40 Type 2 diabetes mellitus with diabetic neuropathy, unspecified; L84 Corns and callosities; Z79.4 Long term (current) use of insulin; Z89.411 Acquired absence of right great toe
CPT/HCPCS: 36415; 73630; 80053; 83036; 85025; 85651; 86140; 87070; 87205

== ENCOUNTER 2023-11-05 10:01 | Emergency (ER) | payer MEDICARE, MEDICAID, SELFPAY ==
--- NOTE | 2023-11-05 10:20 | EXP.UTC ---
Discharge Plan Disposition Patient Disposition: Home, Self-Care Condition: Good Prescriptions Prescriptions: New prednisone 10 mg tablet 10 mg PO BID 5 Days Qty: 10 0RF azithromycin [Zithromax] 250 mg tablet 250 mg PO UD DOSE PK Qty: 6 0RF Rx Instructions: Take two (2) tablets today, then one (1) tablet days #2 thru #5 benzonatate [benzonatate] 100 mg capsule 100 mg PO TIDP PRN (Reason: Cough) Qty: 30 0RF No Action hydrocodone-acetaminophen 10-325 mg tablet 1 tab PO Q6HP PRN (Reason: pain) (DME) lancets [FreeStyle Lancets] 28 gauge misc See Rx Instructions .ROUTE .MEDSUPPLY Qty: 100 Rx Instructions: As directed tadalafil [Cialis] 20 mg tablet 20 mg PO DAILY PRN (Reason: sexual activity) Qty: 10 5RF Rx Instructions: administer approximately 30min before sexual activity; do not use more than 1 dose per 24hrs Cherry Log Saline 0.65 % aerosol,spray 2 spray intranasal QID PRN (Reason: dry nasal passages) Qty: 50 0RF ibuprofen 400 mg tablet PO chlorhexidine gluconate 0.12 % mouthwash PO (DME) pen needle, diabetic [Easy Comfort Pen [place]] 31 gauge x 3/16 needle See Rx Instructions .ROUTE .MEDSUPPLY Qty: 50 Rx Instructions: As directed Cosentyx Pen (2 Pens) 150 mg/mL pen injector 150 mg SQ WEEKLY albuterol sulfate 90 mcg/actuation HFA aerosol inhaler 2 inh inhalation Q6H PRN (Reason: shortness of breath or wheezing) Qty: 8.5 0RF doxycycline hyclate 100 mg tablet 100 mg PO BID 10 Days Qty: 20 0RF lisinopril 5 mg tablet 5 mg PO DAILY Qty: 90 1RF furosemide 40 mg tablet 40 mg PO DAILY Qty: 90 3RF diclofenac sodium 50 mg tablet,delayed release (DR/EC) 50 mg PO BID 90 Days Qty: 180 0RF metoprolol tartrate 25 mg tablet 25 mg PO BID 30 Days Qty: 60 2RF potassium chloride 20 mEq tablet extended release 20 meq PO DAILY 30 Days Qty: 30 2RF insulin lispro protamin-lispro [Humalog Mix 75-25 KwikPen] 100 unit/mL (75-25) insulin pen See Rx Instructions .ROUTE .COMPLEX Qty: 30 1RF Dose Instruction: 60 UNIT (0.6 ML) SUBCUTANEOUSLY TWICE A DAY FOR DIABETES MELLITUS Rx Instructions: 60 UNIT (0.6 ML) SUBCUTANEOUSLY TWICE A DAY FOR DIABETES MELLITUS omeprazole 20 mg capsule,delayed release(DR/EC) 20 mg PO BID 90 Days Qty: 180 0RF atorvastatin 20 mg tablet 20 mg PO DAILY Qty: 90 3RF metformin 1,000 mg tablet See Rx Instructions .ROUTE .COMPLEX Rx Instructions: TAKE 1 TABLET BY MOUTH TWICE A DAY FOR DIABETES FOR 30 DAYS loratadine [Claritin] 10 mg tablet 10 mg PO DAILY ipratropium bromide 0.02 % solution 2.5 ml inhalation Q12H Ozempic 0.25 mg or 0.5 mg (2 mg/3 mL) pen injector 0.25 mg SQ WEEKLY Rx Instructions: for 4 weeks gabapentin 800 mg tablet 800 mg PO QID Rx Instructions: This is written by [facility] [phone] Dr. Coley ondansetron 4 mg tablet,disintegrating 4 mg PO Q6H 3 Days Qty: 12 0RF Referrals Follow up/Referrals: Silvio Mccain MD [Primary Care Provider] - See instructions Activity Restrictions/Add. Instructions Additional Instructions/Restrictions: Drink plenty of fluids. Take tylenol for pain or fever. Take the medications as directed. Follow up with your regular doctor. GO TO THE ER FOR ANY WORSENING SYMPTOMS Instructions Patient Instructions: Sinusitis, DI for Sinusitis Discharge ED Provider: Angel Ramos [facility] [place] General Stated complaint: sneezing, coughing, sore throat Time Seen by Provider: 11/05/23 10:19 History of Present Illness Provider Complaint: He states that he has had sinus congestion, runny nose, productive cough, and sneezing. He denies any fever/chills/body aches. He refuses a covid-19 test and any other viral testing Related Data Home Medications Medication Instructions Recorded Confirmed hydrocodone 10 mg-acetaminophen 1 tab PO Q6HP PRN pain 11/27/21 11/05/23 325 mg tablet lancets 28 gauge (FreeStyle #100 ea 04/01/22 11/05/23 Lancets) pen needle, diabetic 31 gauge x #50 ea 10/19/22 01/04/24 3/16 (Easy Comfort Pen [place]) secukinumab 150 mg/mL subcutaneous 150 mg SQ WEEKLY Diabetes 01/07/23 11/05/23 pen injector (Cosentyx Pen 300 mg/2 Pens () gabapentin 800 mg tablet 800 mg PO QID Diabetes 07/02/23 11/05/23 ipratropium bromide 0.02 % 2.5 ml inhalation Q12H Breathing 07/02/23 11/05/23 solution for inhalation Problems loratadine 10 mg tablet (Claritin) 10 mg PO DAILY allergies 07/02/23 11/05/23 metformin 1,000 mg tablet See Rx Instructions .Route 07/02/23 11/05/23 .COMPLEX Diabetes semaglutide 0.25 mg or 0.5 mg (2 0.25 mg SQ WEEKLY Diabetes 07/02/23 11/05/23 mg/3 mL) subcutaneous pen injector (Ozempic) chlorhexidine gluconate 0.12 % PO 10/15/23 11/05/23 mouthwash ibuprofen 400 mg tablet mg PO 10/15/23 11/05/23 Previous Rx's Medication Instructions Recorded tadalafil 20 mg tablet (Cialis) 20 mg PO DAILY PRN sexual activity 12/15/22 #10 tabs albuterol sulfate 90 mcg/actuation 2 inh inhalation Q6H PRN shortness 04/14/23 aerosol inhaler of breath or wheezing #8.5 grams lisinopril 5 mg tablet 5 mg PO DAILY BLOOD PRESSURE #90 06/08/23 tabs ondansetron 4 mg disintegrating 4 mg PO Q6H 3 days #12 tabs 07/07/23 tablet furosemide 40 mg tablet 40 mg PO DAILY Fluid retention #90 07/28/23 tabs sodium chloride 0.65 % nasal spray 2 spray intranasal QID PRN dry 08/05/23 aerosol (Cherry Log Saline) nasal passages #50 mL diclofenac sodium 50 mg 50 mg PO BID antibiotic 90 days 08/24/23 tablet,delayed release #180 tabs metoprolol tartrate 25 mg tablet 25 mg PO BID BLOOD PRESSURE 30 09/14/23 days #60 tabs potassium chloride 20 mEq 20 meq PO DAILY Potasium 09/14/23 tablet,extended release Replacement 30 days #30 tabs insulin lispro protamine-lispro See Rx Instructions .Route 09/21/23 100 unit/mL (75-25) subcutaneous .COMPLEX #30 mL pen (Humalog Mix 75-25 KwikPen) omeprazole 20 mg capsule,delayed 20 mg PO BID GERD 90 days #180 caps 10/20/23 release atorvastatin 20 mg tablet 20 mg PO DAILY blood pressure #90 10/28/23 tabs azithromycin 250 mg tablet 250 mg PO UD DOSE PK #6 tabs 11/05/23 (Zithromax) benzonatate 100 mg capsule 100 mg PO TIDP PRN Cough #30 caps 11/05/23 doxycycline hyclate 100 mg tablet 100 mg PO BID 10 days #20 tabs 11/05/23 prednisone 10 mg tablet 10 mg PO BID 5 days #10 tabs 11/05/23 Allergies Allergy/AdvReac Type Severity Reaction Status Date / Time No Known Allergies Allergy Verified 11/05/23 10:44 [facility] Disclaimer: The information contained in this section may have been updated after the patient was seen, as this information can be updated by other users. Medical History Amputation of toe of left foot CAD, multiple vessel Chronic sinusitis Deviated nasal septum Diabetic foot Dyspnea Erectile dysfunction Gangrene of toe of left foot History of amputation of toe History of diabetes mellitus, type II History of hyperlipidemia History of hypertension Nail dystrophy Non-STEMI (non-ST elevated myocardial infarction) Psoriasis Sinus mucosal thickening Surgical History History of amputation of toe History of nasal septoplasty Hx of cataract surgery S/P CABG x 6 Family History Mother Heart attack Social History Smoking Status: Former smoker tobacco type: cigarettes packs per day: 0 smoking status stop date: 11/02/2001 second hand exposure: Yes alcohol intake: former substance use type: denies use current occupational status: disabled Travel in the last 8 weeks: None household members: none housing: apartment caffeine: Yes ROS Obtained: Yes All systems reviewed & no additional complaints except as documented Constitutional Constitutional: Reports poor appetite Eyes Eyes: Reports system reviewed and no additional complaints, except as documented ENT Ears, Nose, Mouth, and Throat: Reports as per HPI Cardiovascular Cardiovascular: Reports system reviewed and no additional complaints, except as documented and Denies chest pain Respiratory Respiratory: Denies shortness of breath, Reports chest congestion, Reports cough, Denies stridor and Denies wheezing Gastrointestinal Gastrointestingal: Reports system reviewed and no additional complaints, except as documented; Denies abdominal pain, diarrhea or vomiting Musculoskeletal Musculoskeletal: Reports system reviewed and no additional complaints, except as documented and Denies arthralgias Integumentary/Breasts Skin/Breast: Reports system reviewed and no additional complaints, except as documented and Denies rash Neurologic Neurologic: Denies paresthesias Allergic/Immunologic Allergic/Immunologic: Denies wheezing Physical Exam General General appearance: alert and in no apparent distress Eye Eye exam: Present normal appearance, PERRL and EOMI ENT ENT exam: Present mucous membranes moist and normal external ear exam Expanded ENT Exam External ear exam: Present normal external inspection TM/Canal exam: Bilateral TM: erythema and bulging Nose exam: Absent sinus tenderness Nasal speculum exam: Bilateral: normal Mouth exam: Present normal external inspection; Absent drooling Teeth exam: Present normal inspection Throat exam: Present tonsillar erythema and tonsillomegaly Neck Neck exam: Present normal inspection, full ROM and trachea midline; Absent tenderness, lymphadenopathy or thyromegaly Chest Chest inspection: Present normal inspection and symmetric chest wall rise; Absent tenderness or rash Respiratory Respiratory exam: Present normal lung sounds bilaterally; Absent respiratory distress, wheezes, stridor or accessory muscle use Cardiovascular Cardiovascular exam: Present regular rate, normal rhythm and normal heart sounds Abdominal Exam Abdominal exam: Present soft; Absent distention, tenderness, guarding, rebound or rigidity Extremities Exam Extremities exam: Present normal inspection, full ROM and normal capillary refill; Absent tenderness or calf tenderness Back Exam Back exam: Present normal inspection and full ROM; Absent tenderness Neurological Exam Neurological exam: Present alert and oriented X3 Psychiatric Psychiatric exam: Present normal affect and normal mood Skin Skin exam: Present warm, dry, intact and normal color Lymphatic Lymphatic Findings: no adenopathy Medical Decision Making Medical Records Medical records reviewed: No I reviewed the patient's medical records. Jose Inquiry Pt receiving controlled substance: No Lab Data Lab results reviewed: Yes I reviewed the patient's lab results.
[2023-11-05 10:30] VITALS: BP 139/66; PULSE 78; RESP 18; TEMP 36.7; O2SAT 99; BMI 25.5
[2023-11-05 10:58] VITALS: BP 139/66; PULSE 78; RESP 18; TEMP 36.7; O2SAT 99
== END 2023-11-05 10:58 | disposition home or self-care (01) ==
PROVIDERS: Emergency Provider Nurse Practitioner Family; PCP Family Medicine
DX: J01.90 Acute sinusitis, unspecified (principal); R05.9 Cough, unspecified; R07.0 Pain in throat; R09.81 Nasal congestion
CPT/HCPCS: 36415; 73630; 80053; 83036; 85025; 85651; 86140; 87070; 87205; 99212; 99214; G0463

== ENCOUNTER 2023-11-08 00:11 | Observation (INO) | payer MEDICARE, MEDICAID, SELFPAY ==
[2023-11-08] VITALS (12 sets, daily range): BP systolic 103–188; BP diastolic 59–90; PULSE 67–91; RESP 16–20; TEMP 36.4–37.2; O2SAT 95–99; BMI 25.7; BMI 24.8
--- NOTE | 2023-11-08 00:38 | CT_ITS ---
PROCEDURE INFORMATION: Exam: CT Abdomen And Pelvis With Contrast Exam date and time: 11/08/2023 12:54 AM Age: 68 years old Clinical indication: Abdominal pain; Additional info: Generalized abdominal pain/tenderness TECHNIQUE: Imaging protocol: Computed tomography of the abdomen and pelvis with contrast. Radiation optimization: All CT scans at this facility use at least one of these dose optimization techniques: automated exposure control; mA and/or kV adjustment per patient size (includes targeted exams where dose is matched to clinical indication); or iterative reconstruction. Contrast material: ISOVUE; Contrast volume: 75 ml; Contrast route: IV; COMPARISON: CT ANGIO CHEST 08/13/2019 11:07 PM FINDINGS: Liver: Normal. No mass. Gallbladder and bile ducts: Normal. No calcified stones. No ductal dilation. Pancreas: Normal. No ductal dilation. Spleen: The spleen is enlarged measuring 13.5 cm in length. It is otherwise unremarkable. There is no focal mass. Adrenal glands: Normal. No mass. Kidneys and ureters: Normal. No hydronephrosis. Stomach and bowel: Mild thickening of the wall the colon extending from the distal descending colon to the distal sigmoid colon. There is slight adjacent fat stranding. Appendix: No evidence of appendicitis. Intraperitoneal space: Unremarkable. No free air. No significant fluid collection. Vasculature: Unremarkable. No abdominal aortic aneurysm. Lymph nodes: Unremarkable. No enlarged lymph nodes. Urinary bladder: Unremarkable as visualized. Reproductive: Unremarkable as visualized. Bones/joints: Unremarkable. No acute fracture. Soft tissues: Unremarkable. IMPRESSION: 1. Mild colitis extending from the distal descending colon to the distal sigmoid colon. 2. Mild splenomegaly. 3. There is no other acute inflammatory process. There is no bowel obstruction.
--- NOTE | 2023-11-08 00:38 | ECG_ITS ---
APPROVED REPORT Exam: Resting ECG HR:88 bpm ECG Measurements Heart Rate 88 AXES KS 218 P -59 QRSd 115 QRS 87 QT 382 T 32 QTc 428 Conclusion SINUS RHYTHM WITH FIRST DEGREE AV BLOCK POSSIBLE RIGHT VENTRICULAR CONDUCTION DELAY [RSR (QR) IN V1/V2] PROBABLE LATERAL MYOCARDIAL INFARCTION , OF INDETERMINATE AGE [35 ms Q WAVE IN I/aVL/V5/V6] ABNORMAL ECG UNCONFIRMED REPORT Electronically signed by : Gregorio Bird MD 11/08/2023 09:01:35
[2023-11-08 00:45] LABS: Basophils % 0.2 % (0.1-2.0); Eosinophils # 0.1 K/mm3 (0.0-0.4); Eosinophils % 0.5 % (0.1-12.0); Hematocrit 40.4 % (42.0-52.0); Hemoglobin 13.4 g/dL (14.1-18.0); Lymphocytes # 0.7 K/mm3 (0.7-4.5); Lymphocytes % 5.8 % (10-50); Mean Corpuscular HGB Conc 33.2 g/dL (31.8-35.4); Mean Corpuscular Hemoglobin 28.2 pg (27.0-31.2); Mean Corpuscular Volume 85.1 fl (80-94); Mean Platelet Volume 9.1 fl (7.4-10.4); Monocytes # 0.7 K/mm3 (0.1-1.0); Monocytes % 5.4 % (1.7-9.3); Neutrophils # 10.9 K/mm3 (1.8-7.8); Platelet Count 140 K/mm3 (142-424); Red Blood Count 4.75 M/mm3 (4.60-6.20); Red Cell Distribution Width 15.5 % (11.5-17.5); White Blood Count 12.4 K/mm3 (4.8-10.8)
[2023-11-08] MEDS: LACTATED RINGERS 1000ML 1,000 ML 999 ML IV ×2 (00:45→01:58)
[2023-11-08 00:46] LABS: Chloride 100 mmol/L (98-107); MANUAL DIFFERENTIAL MANUAL DIFFERENTIAL (MANUAL DIFF); Sodium 138 mmol/L (136-145)
[2023-11-08] MEDS: MORPHINE 4MG/ML SYRINGE 4 MG IV (00:46)
[2023-11-08] MEDS: ONDANSETRON 4MG/2ML VIAL 4 MG IV (00:46)
--- NOTE | 2023-11-08 00:46 | HMH.EDGENADL ---
Discharge Plan Disposition Patient Disposition: Admitted Condition: Good Clinical Impressions Clinical Impression: Colitis, Sepsis Discharge ED Provider: Joseline Mendes General Adult HPI General Chief complaint: Abdominal Pain Stated complaint: stomach pain Time Seen by Provider: 11/08/23 00:15 Mode of Arrival: Ambulatory Source of Information: Patient Limitations: No Limitations Description of Symptoms (Recalled from ER Triage Doc. by RN): 68 year old male presents to ER with complaints of right upper quadarant abdominal pain. Paitent states pain started about 3 hours ago along with nausea and vomiting. Patient states he has thrown up 3-4 times in this time frame. Patient states he does still have his gallbladder and appendix. History of Present Illness HPI narrative: This patient is a 68-year-old male with a history of CAD status post CABG, type 2 diabetes, diabetic foot wound, hypertension, hyperlipidemia, and pancreatitis presenting to the emergency department for evaluation with concern for ventral abdominal pain. He states that it started approximately 3 hours ago. He is also had nausea and vomiting. Emesis is nonbloody and nonbilious. He notes that he has had normal bowel movements with last 1 being late this evening. He denies any fevers, chills, or other concerns. He was well prior to onset of the symptoms. The pain is mostly around his bellybutton and is severe. Nothing seems to make it better or worse. Denies any prior abdominal surgeries Related Data Home Medications Medication Instructions Recorded Confirmed hydrocodone 10 mg-acetaminophen 1 tab PO Q6HP PRN pain 11/27/21 11/08/23 325 mg tablet lancets 28 gauge (FreeStyle #100 ea 04/01/22 11/08/23 Lancets) pen needle, diabetic 31 gauge x #50 ea 08/20/22 11/08/23 3/16 (Easy Comfort Pen [place]) secukinumab 150 mg/mL subcutaneous 150 mg SQ WEEKLY Diabetes 01/07/23 11/08/23 pen injector (Cosentyx Pen 300 mg/2 Pens () gabapentin 800 mg tablet 800 mg PO QID Diabetes 07/02/23 11/08/23 ipratropium bromide 0.02 % 2.5 ml inhalation Q12H Breathing 07/02/23 11/08/23 solution for inhalation Problems loratadine 10 mg tablet (Claritin) 10 mg PO DAILY allergies 07/02/23 11/08/23 metformin 1,000 mg tablet See Rx Instructions .Route 07/02/23 11/08/23 .COMPLEX Diabetes semaglutide 0.25 mg or 0.5 mg (2 0.25 mg SQ WEEKLY Diabetes 07/02/23 11/08/23 mg/3 mL) subcutaneous pen injector (Ozempic) ibuprofen 400 mg tablet 400 mg PO DAILY 10/15/23 11/08/23 Previous Rx's Medication Instructions Recorded tadalafil 20 mg tablet (Cialis) 20 mg PO DAILY PRN sexual activity 12/15/22 #10 tabs albuterol sulfate 90 mcg/actuation 2 inh inhalation Q6H PRN shortness 04/14/23 aerosol inhaler of breath or wheezing #8.5 grams lisinopril 5 mg tablet 5 mg PO DAILY BLOOD PRESSURE #90 06/08/23 tabs ondansetron 4 mg disintegrating 4 mg PO Q6H 3 days #12 tabs 07/07/23 tablet furosemide 40 mg tablet 40 mg PO DAILY Fluid retention #90 07/28/23 tabs sodium chloride 0.65 % nasal spray 2 spray intranasal QID PRN dry 08/05/23 aerosol (Ely Saline) nasal passages #50 mL diclofenac sodium 50 mg 50 mg PO BID antibiotic 90 days 08/24/23 tablet,delayed release #180 tabs metoprolol tartrate 25 mg tablet 25 mg PO BID BLOOD PRESSURE 30 09/14/23 days #60 tabs potassium chloride 20 mEq 20 meq PO DAILY Potasium 09/14/23 tablet,extended release Replacement 30 days #30 tabs insulin lispro protamine-lispro See Rx Instructions .Route 09/21/23 100 unit/mL (75-25) subcutaneous .COMPLEX #30 mL pen (Humalog Mix 75-25 KwikPen) omeprazole 20 mg capsule,delayed 20 mg PO BID GERD 90 days #180 caps 10/20/23 release atorvastatin 20 mg tablet 20 mg PO DAILY blood pressure #90 10/28/23 tabs azithromycin 250 mg tablet 250 mg PO UD DOSE PK #6 tabs 11/05/23 (Zithromax) benzonatate 100 mg capsule 100 mg PO TIDP PRN Cough #30 caps 11/05/23 doxycycline hyclate 100 mg tablet 100 mg PO BID 10 days #20 tabs 11/05/23 prednisone 10 mg tablet 10 mg PO BID 5 days #10 tabs 11/05/23 Allergies Allergy/AdvReac Type Severity Reaction Status Date / Time No Known Allergies Allergy Verified 11/05/23 10:44 [facility] Disclaimer: The information contained in this section may have been updated after the patient was seen, as this information can be updated by other users. Medical History Amputation of toe of left foot CAD, multiple vessel Chronic sinusitis Deviated nasal septum Diabetic foot Dyspnea Erectile dysfunction Gangrene of toe of left foot History of amputation of toe History of diabetes mellitus, type II History of hyperlipidemia History of hypertension Nail dystrophy Non-STEMI (non-ST elevated myocardial infarction) Psoriasis Sinus mucosal thickening Surgical History History of amputation of toe History of nasal septoplasty Hx of cataract surgery S/P CABG x 6 Family History Mother Heart attack Social History Smoking Status: Never smoker smoking status stop date: 11/02/2001 second hand exposure: Yes alcohol intake: former substance use type: denies use current occupational status: disabled Travel in the last 8 weeks: None household members: none housing: apartment caffeine: Yes ROS Obtained: Yes All systems reviewed & no additional complaints except as documented Physical Exam General General appearance: alert and in no apparent distress Head Head exam: atraumatic and normocephalic Eye Eye exam: Present normal appearance, PERRL and EOMI ENT ENT exam: Present normal exam, normal oropharynx, mucous membranes moist and normal external ear exam Neck Neck exam: Present normal inspection, full ROM and trachea midline; Absent tenderness Chest Chest inspection: Present normal inspection and symmetric chest wall rise; Absent tenderness Respiratory Respiratory exam: Present normal lung sounds bilaterally; Absent respiratory distress, wheezes, stridor or accessory muscle use Cardiovascular Cardiovascular exam: Present regular rate and normal rhythm Abdominal Exam Abdominal exam: Present soft, tenderness (Generalized, worse in the periumbilical region and lower abdomen) and normal bowel sounds; Absent distention, guarding, rebound or rigidity Extremities Exam Extremities exam: Present normal inspection, full ROM and normal capillary refill; Absent tenderness or edema Back Exam Back exam: Present normal inspection and full ROM; Absent tenderness Neurological Exam Neurological exam: Present alert, oriented X3, CN II-XII intact and normal gait; Absent motor sensory deficit Psychiatric Psychiatric exam: Present normal affect and normal mood Skin Skin exam: Present warm and dry Medical Decision Making Medical Records Medical records reviewed: Yes I reviewed the patient's medical records. Jose Inquiry Pt receiving controlled substance: No Vital Signs: 11/08/23 00:28 11/08/23 00:17 11/08/23 00:30 Temperature 97.6 F Temperature Source Oral Pulse Rate 89 83 Pulse Rate [Left Radial] 89 Respiratory Rate 20 Blood Pressure 188/89 H 172/85 H Blood Pressure [Right Arm] 188/89 H Blood Pressure Mean 114 Blood Pressure Mean [Right Arm] 122 02 Sat by Pulse Oximetry 99 99 96 Oxygen Delivery Method Room Air 11/08/23 01:11 11/08/23 01:30 11/08/23 02:00 Temperature Temperature Source Pulse Rate 91 H 90 81 Pulse Rate [Left Radial] Respiratory Rate Blood Pressure 177/90 H 146/73 H 146/77 H Blood Pressure [Right Arm] Blood Pressure Mean 131 102 Blood Pressure Mean [Right Arm] 02 Sat by Pulse Oximetry 98 97 99 Oxygen Delivery Method Lab Data Lab results reviewed: Yes I reviewed the patient's lab results. Lab Results 11/08/23 00:24: WBC 12.4 H D, RBC 4.75, Hgb 13.4 L, Hct 40.4 L, MCV 85.1, MCH 28.2, MCHC 33.2, RDW 15.5, Plt Count 140 L, MPV 9.1, Neut % (Auto) 88.0 H, Lymph % (Auto) 5.8 L, [place] % (Auto) 5.4, Eos % (Auto) 0.5, Baso % (Auto) 0.2, Neut # (Auto) 10.9 H, Lymph # (Auto) 0.7, [place] # (Auto) 0.7, Eos # (Auto) 0.1, Baso # (Auto) 0.0, Total Counted 100, Neutrophils % (Manual) 87 H, Lymphocytes % (Manual) 11, Monocytes % (Manual) 1 L, Eosinophils % (Manual) 1, Platelet Estimate Slight decrease, RBC Morphology Normal, Sodium 138, Potassium 4.7, Chloride 100, Carbon Dioxide 24, Anion Gap 18.7 H, BUN 22 H, Creatinine 1.10, Estimated Creat Clear 71, Estimated GFR 66, Est GFR ( Amer) 80, Glucose 354 H, Calcium 8.9, Total Bilirubin 0.6, AST 68 H, ALT 73, Alkaline Phosphatase 249 H, Total Protein 8.3 H, Albumin 4.2, Globulin 4.1 H, Albumin/Globulin Ratio 1.0 L, Lipase 225, Acetone Level None detected 11/08/23 01:11: VBG pH 7.32, VBG pCO2 44.6, VBG pO2 40.5 H, VBG HCO3 22.2 L, VBG Total CO2 23.6, VBG O2 Saturation 71.7 H, VBG Base Excess -4.0 L, Lactate 2.7 H 11/08/23 02:10: Urine Color Yellow, Urine Appearance Clear, Urine pH 6.0, Ur Specific [place] 1.010, Urine Protein Negative, Urine Glucose (UA) 3+, Urine Ketones Negative, Urine Blood Negative, Urine Nitrate Negative, Urine Bilirubin Negative, Urine Urobilinogen 0.2, Ur Leukocyte Esterase Negative, Urine RBC Occasional, Urine WBC 5-10, Ur Squamous Epith Cells Occasional, Urine Bacteria Trace 11/08/23 00:24 11/08/23 00:24 Orders (Tests/Meds): ED MEDICATIONS Generic Name Dose Route Start Last Admin Trade Name Ryanq PRN Reason Stop Dose Admin Acetaminophen 650 mg 11/08/23 02:23 Acetaminophen 325mg Tab PO 12/08/23 02:22 Q4HP PRN Fever or Mild Pain (1-3) Al Hydrox/Mg Hydrox/Simethicone 30 ml 11/08/23 02:23 Aluminum/Magnesium/Simethicone 30ml Udc PO 12/08/23 02:22 QIDP PRN Dyspepsia Docusate Sodium 100 mg 11/08/23 09:00 Docusate Sodium 100 Mg Capsule PO 12/08/23 08:59 DAILY ELLIOT Enoxaparin Sodium 40 mg 11/08/23 09:00 Enoxaparin 40mg/0.4ml Syringe SQ 12/08/23 08:59 DAILY ELLIOT Lactated Ringer's 1,000 mls @ 999 mls/hr 11/08/23 01:55 11/08/23 01:58 Lactated Ringer's 1000 Ml Bag IV 11/08/23 02:55 999 mls/hr .Q1H1M ONE Administration Piperacillin Sod/Tazobactam 50 mls @ 100 mls/hr 11/08/23 02:16 Sod 3.375 gm/ Sodium Chloride IV 11/08/23 02:45 ONCE ONE Sodium Chloride 1,000 mls @ 50 mls/hr 11/08/23 02:30 Sod Chlor 0.9% 1000ml Bag IV 12/08/23 02:29 .Q20H ELLIOT Piperacillin Sod/Tazobactam 100 mls @ 200 mls/hr 11/08/23 02:30 Sod 4.5 gm/ Sodium Chloride IV 11/18/23 02:29 Q8H ELLIOT Insulin Human Lispro 0 unit 11/08/23 06:00 Humalog 100 Units/Ml 3ml Vial (Ssi) SQ 12/08/23 05:59 ACHS [facility] Protocol Morphine Sulfate 2 mg 11/08/23 02:23 Morphine 2mg/Ml Syringe IV 12/08/23 02:22 Q2HP PRN Severe Pain (7-10) Nicotine 21 mg 11/08/23 02:23 Nicotine 21mg/24hr Patch TD 12/08/23 02:22 DAILYP PRN Nicotine Cravings Ondansetron HCl 4 mg 11/08/23 02:23 Ondansetron 4mg/2ml Vial IV 12/08/23 02:22 Q8HP PRN Nausea Pantoprazole Sodium 40 mg 11/08/23 09:00 Pantoprazole 40mg Tablet PO 12/08/23 08:59 DAILY [facility] Discontinued Medications Generic Name Dose Route Start Last Admin Trade Name Freq PRN Reason Stop Dose Admin Lactated Ringer's 1,000 mls @ 999 mls/hr 11/08/23 00:38 11/08/23 00:45 Lactated Ringer's 1000 Ml Bag IV 11/08/23 01:38 999 mls/hr .Q1H1M ONE Administration Iopamidol 75 ml 11/08/23 01:03 11/08/23 01:04 Iopamidol-370 (76%);100ml Bottle IV 11/08/23 01:04 75 ml ONCE ONE Administration Morphine Sulfate 4 mg 11/08/23 00:38 11/08/23 00:46 Morphine 4mg/Ml Syringe IV 11/08/23 00:39 4 mg ONCE ONE Administration Ondansetron HCl 4 mg 11/08/23 00:38 11/08/23 00:46 Ondansetron 4mg/2ml Vial IV 11/08/23 00:39 4 mg ONCE ONE Administration Sodium Chloride 10 ml 11/08/23 01:03 11/08/23 01:04 Sodium Chloride 0.9% 10ml Syr (Rad Only) IV 11/08/23 01:04 10 ml ONCE ONE Administration ORDERS Category Date Time Status CT abdomen pelvis w con Stat Cat Scan 11/08/23 00:38 Completed Surgery Consult (on-call) [Consult to On-Call Gen'l Cons 11/08/23 02:23 Ordered Surgeon] [CONS] Routine Acetone, Serum (Rapid) Stat Lab 11/08/23 00:24 Completed Complete Blood Count Auto Diff AMLAB Lab 11/08/23 06:00 Ordered Complete Blood Count Auto Diff Stat Lab 11/08/23 00:24 Completed Comprehensive Metabolic Panel AMLAB Lab 11/08/23 06:00 Ordered Comprehensive Metabolic Panel Stat Lab 11/08/23 00:24 Completed Diarrhea 6-11 Panel, Cdiff PCR Stat Lab 11/08/23 02:16 Ordered Lactic Acid Stat Lab 11/08/23 01:11 Completed Lipase Stat Lab 11/08/23 00:24 Completed Magnesium AMLAB Lab 11/08/23 06:00 Ordered Urinalysis and Microscopic Stat Lab 11/08/23 02:10 Completed Blood Culture Stat Micro 11/08/23 02:16 Ordered VBG [Venous Blood Gas] Stat RT 11/08/23 01:11 Completed ECG initial [place] Routine Y 11/08/23 00:38 Completed ECG Data Tracing #1: I reviewed this ECG and interpreted as documented below: Normal sinus rhythm with a ventricular rate of 88 bpm. First-degree AV block with a TX interval of 218 ms. Q waves present without acute ST changes concerning for ischemia. No significant changes noted from prior EKG. ECG initial impression date: 11/08/23 ECG initial impression time: 01:07 Medical Decision Narrative: In summary, this patient is a 68-year-old male presenting to the Emergency Department for evaluation of abdominal pain, nausea, and vomiting. Differential diagnoses considered include but are not limited to ascites, cholecystitis, pancreatitis, gastroenteritis, colitis. Ruling out the most morbid conditions drove assessment. It should be noted patient's history includes CAD status post CABG, type 2 diabetes, hypertension, hyperlipidemia, and COPD which may or may not be at goal therapy. This complicates all aspects of care by increasing patient's risk for morbidity. On exam, the patient is nontoxic-appearing. He has generalized abdominal tenderness, worse in the periumbilical region and lower abdomen. Workup included CBC, CMP, lipase, lactic acid, urinalysis, and CT abdomen pelvis with IV contrast. He was given a bolus of IV fluids as well as IV morphine and Zofran for symptomatic improvement. On reassessment, patient is resting comfortably with improved symptoms. He has reassuring vital signs on cardiac telemetry. Labs demonstrated leukocytosis, elevated lactic acid, elevated anion gap, and hyperglycemia. Patient has undetectable ketones and is not acidotic. I do not feel that he has DKA or HHS, but instead I feel he likely has lactic acidosis as a result of what ever intra-abdominal pathology has going on at this time. He was given a second liter bolus of IV fluids. He triggers for SIRS criteria, however full sepsis bolus was not administered, as the patient has history of cardiac dysfunction and I feel that the risk would outweigh the benefit. I independently interpreted CT scan prior to the radiologist read and noted colonic thickening. Please see their read for final interpretation. They note concerns for colitis that is very mild. No pneumatosis, free air, or other concerns. Given the patient's elevated lactic acid, cannot definitively exclude ischemic colitis. On reassessment, however, he is resting comfortably with benign abdominal exam. He complains of no pain or tenderness at this time. He states he is feeling fine. Given that we cannot definitively exclude ischemic colitis, I started the patient on IV Zosyn. Blood cultures were sent prior to this. I called and had an interactive discussion with the hospitalist who agreed to admit the patient for further evaluation and management given that he is high risk. Critical Care Critical Care Time Critical Care Time: No
[2023-11-08 00:47] LABS: Potassium 4.7 mmoL/L (3.5-5.1)
[2023-11-08 00:49] LABS: Alanine Aminotransferase 73 U/L (12-78); Alkaline Phosphatase 249 U/L (38-126); Anion Gap 18.7 mEq/L (5-15); Aspartate Amino Transferase 68 U/L (17-59); Bilirubin,Total 0.6 mg/dl (0.2-1.3); Blood Urea Nitrogen 22 mg/dl (9-20); Carbon Dioxide 24 mmol/L (22.0-30.0); Creatinine Clearance Estimated 71 mL/min (50-200); Estimated Glomerular Filt Rate 66 ml/min (>60); GFR (African American) 80 ML/MIN (>60); Lipase 225 U/L (23-300)
[2023-11-08 00:50] LABS: Albumin Level 4.2 g/dl (3.5-5.0); Calcium 8.9 mg/dl (8.4-10.2); Globulin 4.1 g/dL (1.3-3.2); Glucose 354 mg/dl (74-100); Total Protein,Serum 8.3 g/dl (6.3-8.2)
--- NOTE | 2023-11-08 01:02 | PC.NURSE ---
Back in room from CT
[2023-11-08] MEDS: IOPAMIDOL-370 (76%);100ML BOTTLE 75 ML IV (01:04)
[2023-11-08] MEDS: SODIUM CHLORIDE 0.9% 10ML SYR (RAD ONLY) 10 ML IV (01:04)
[2023-11-08 01:22] LABS: VBG HCO3 22.2 mmol/L (23-30); VBG Oxygen Saturation 71.7 % (50-70); VBG PCO2 44.6 mmol/L (35-51); VBG PH 7.32 mmol/L (7.31-7.41); VBG PO2 40.5 mmol/L (28-40); VBG Total CO2 23.6 mmol/L (23-27)
[2023-11-08 01:29] LABS: Acetone, Serum (Rapid) None Detected (None Detect)
[2023-11-08 01:32] LABS: Eosinophils % 1 % (0-3); Lymphocytes % 11 % (10-50); Monocytes % 1 % (2-9); Neutrophils % 87 % (42-76); Platelet Estimate Slight Decrease; RBC Morphology Normal; Total Cells Counted 100
[2023-11-08 01:36] LABS: Lactic Acid 2.7 mmol/L (0.7-2.1)
--- NOTE | 2023-11-08 01:59 | PC.NURSE ---
Dr mack updated patient. [place] given for comfort.
[2023-11-08 02:14] LABS: Microscopic, Urine URINE MICROSCOPIC (MICROSCOPIC)
[2023-11-08 02:16] LABS: Appearance,Urine CLEAR (Clear); Bilirubin,Urine Negative (Negative); Blood, Urine Negative (Negative); Color,Urine YELLOW (Yellow); Glucose,Urine (UA) 3+ (Negative); Ketones,Urine Negative (Negative); Leukocyte Esterase,Urine Negative (Negative); Nitrate,Urine Negative (Negative); Protein,Urine Negative (Negative); Urobilinogen,Urine 0.2 EU/dl (0.2)
--- NOTE | 2023-11-08 02:22 | PC.NURSE ---
on phone with hospitalist. notified warehouse picker of admission
--- NOTE | 2023-11-08 02:24 | PC.NURSE ---
Addendum entered by Loida River RN 11/08/23 02:49: CORRECTION TO 201 Original Note: OBSERVATION ADMISSION TO 207 WITH DX OF COLITIS, SEPSIS WITH ORGAN DYSFUNCTION TO SERVICE OF THE HOSPITALIST.
[2023-11-08 02:25] LABS: Bacteria,Urine Trace /lpf; RBC,Urine Occasional #/hpf (0-3); Squamous Epithelial Cell,Urine Occasional #/hpf (0-5)
--- NOTE | 2023-11-08 02:28 | EXP.HP ---
History of Present Illness *Admission Date: 11/08/23 *Reason for visit:: abd pain *History of present illness: This is a 68-year-old male with PMHx of CAD status post CABG, type 2 diabetes, diabetic foot wound s/p toes amputation, hypertension, hyperlipidemia, and pancreatitis presenting to the emergency department for evaluation of ventral abdominal pain. He states that it started approximately 3 hours ago. He is also had nausea and vomiting. Emesis is nonbloody and nonbilious. He notes that he has had normal bowel movements with last 1 being late this evening. He denies any fevers, chills, or other concerns. He was well prior to onset of the symptoms. The pain is mostly around his bellybutton and is severe. Nothing seems to make it better or worse. Denies any prior abdominal surgeries. Admitted for further treatment and management. [facility] Disclaimer: The information contained in this section may have been updated after the patient was seen, as this information can be updated by other users. Medical History Amputation of toe of left foot CAD, multiple vessel Chronic sinusitis Deviated nasal septum Diabetic foot Dyspnea Erectile dysfunction Gangrene of toe of left foot History of amputation of toe History of diabetes mellitus, type II History of hyperlipidemia History of hypertension Nail dystrophy Non-STEMI (non-ST elevated myocardial infarction) Psoriasis Sinus mucosal thickening Surgical History History of amputation of toe History of nasal septoplasty Hx of cataract surgery S/P CABG x 6 Family History Mother Heart attack Social History (Updated 11/08/23 @ 03:39 by Olga Kerr RN) Smoking Status: Former smoker tobacco type: cigarettes packs per day: 3 years smoked: 25 smoking status stop date: 11/02/2001 how long ago did patient quit smokin second hand exposure: Yes alcohol intake: former substance use type: denies use current occupational status: disabled Travel in the last 8 weeks: None household members: none housing: apartment caffeine: Yes Review of Systems Review of Systems Review of systems:: pertinent systems reviewed and negative unless documented below Meds Home Medications and Allergies Home Medications Medication Instructions Recorded Confirmed Type hydrocodone 10 mg-acetaminophen 1 tab PO Q6HP PRN Moderate Pain 11/27/21 11/08/23 History 325 mg tablet (Scale Score 5-6) lancets 28 gauge (FreeStyle #100 ea 04/01/22 11/08/23 History Lancets) pen needle, diabetic 31 gauge x #50 ea 08/20/22 11/08/23 History 3/16 (Easy Comfort Pen [place]) tadalafil 20 mg tablet (Cialis) 20 mg PO DAILY PRN sexual activity 12/15/22 11/08/23 Rx #10 tabs secukinumab 150 mg/mL subcutaneous 150 mg SQ WEEKLY Diabetes 01/07/23 11/08/23 History pen injector (Cosentyx Pen 300 mg/2 Pens () gabapentin 800 mg tablet 800 mg PO QID Pain 07/02/23 11/08/23 History ipratropium bromide 0.02 % 2.5 ml inhalation Q12H Breathing 07/02/23 11/08/23 History solution for inhalation Problems loratadine 10 mg tablet (Claritin) 10 mg PO DAILY Allergy Symptoms 07/02/23 11/08/23 History metformin 1,000 mg tablet 1,000 mg PO BID Diabetes 07/02/23 11/08/23 History benzonatate 100 mg capsule 100 mg PO TIDP PRN Cough #30 caps 11/05/23 11/08/23 Rx albuterol sulfate 90 mcg/actuation 2 inh inhalation Q6HP PRN 11/08/23 11/08/23 History aerosol inhaler shortness of breath or wheezing atorvastatin 20 mg tablet 20 mg PO HS Cholesterol 11/08/23 11/08/23 History furosemide 40 mg tablet 40 mg PO DAILY Fluid 11/08/23 11/08/23 History insulin lispro protamine-lispro 60 unit SQ BID Diabetes 11/08/23 11/08/23 History 100 unit/mL (75-25) subcutaneous pen (Humalog Mix 75-25 KwikPen) lisinopril 5 mg tablet 5 mg PO DAILY High Blood Pressure 11/08/23 11/08/23 History metoprolol tartrate 25 mg tablet 25 mg PO BID High Blood Pressure 11/08/23 11/08/23 History omeprazole 20 mg capsule,delayed 20 mg PO BID Acid Reflux 11/08/23 11/08/23 History release sodium chloride 0.65 % nasal spray 2 spray intranasal QIDP PRN dry 11/08/23 11/08/23 History aerosol ([place] Saline) nasal passages amoxicillin 875 mg-potassium 1 tab PO BID 5 days #10 tabs 11/09/23 Rx clavulanate 125 mg tablet New Prescriptions to Start Prescriptions: amoxicillin-pot clavulanate Kathy Valencia Allergies Allergy/AdvReac Type Severity Reaction Status Date / Time No Known Allergies Allergy Verified 11/05/23 10:44 Exam Data for Last 24 hours Vital signs and Labs for Last 24 Hours: Temp Pulse Resp BP Pulse Ox O2 Del Method 97.6 F 81 20 146/77 H 99 Room Air 11/08/23 00:28 11/08/23 02:00 11/08/23 00:28 11/08/23 02:00 11/08/23 02:00 11/08/23 00:28 Laboratory Results - last 24 hr 11/08/23 00:24: WBC 12.4 H D, RBC 4.75, Hgb 13.4 L, Hct 40.4 L, MCV 85.1, MCH 28.2, MCHC 33.2, RDW 15.5, Plt Count 140 L, MPV 9.1, Neut % (Auto) 88.0 H, Lymph % (Auto) 5.8 L, [place] % (Auto) 5.4, Eos % (Auto) 0.5, Baso % (Auto) 0.2, Neut # (Auto) 10.9 H, Lymph # (Auto) 0.7, [place] # (Auto) 0.7, Eos # (Auto) 0.1, Baso # (Auto) 0.0, Total Counted 100, Neutrophils % (Manual) 87 H, Lymphocytes % (Manual) 11, Monocytes % (Manual) 1 L, Eosinophils % (Manual) 1, Platelet Estimate Slight decrease, RBC Morphology Normal, Sodium 138, Potassium 4.7, Chloride 100, Carbon Dioxide 24, Anion Gap 18.7 H, BUN 22 H, Creatinine 1.10, Estimated Creat Clear 71, Estimated GFR 66, Est GFR ( Amer) 80, Glucose 354 H, Calcium 8.9, Total Bilirubin 0.6, AST 68 H, ALT 73, Alkaline Phosphatase 249 H, Total Protein 8.3 H, Albumin 4.2, Globulin 4.1 H, Albumin/Globulin Ratio 1.0 L, Lipase 225, Acetone Level None detected 11/08/23 01:11: VBG pH 7.32, VBG pCO2 44.6, VBG pO2 40.5 H, VBG HCO3 22.2 L, VBG Total CO2 23.6, VBG O2 Saturation 71.7 H, VBG Base Excess -4.0 L, Lactate 2.7 H 11/08/23 02:10: Urine Color Yellow, Urine Appearance Clear, Urine pH 6.0, Ur Specific [place] 1.010, Urine Protein Negative, Urine Glucose (UA) 3+, Urine Ketones Negative, Urine Blood Negative, Urine Nitrate Negative, Urine Bilirubin Negative, Urine Urobilinogen 0.2, Ur Leukocyte Esterase Negative, Urine RBC Occasional, Urine WBC 5-10, Ur Squamous Epith Cells Occasional, Urine Bacteria Trace I & O for Last 24 hours: Intake & Output 11/05/23 11/06/23 11/07/23 11/08/23 23:59 23:59 23:59 23:59 Weight 78.925 kg Constitutional Constitutional: mild distress and cooperative *Routine HEENT Exam Head: Present normocephalic and atraumatic Eye: Present EOMI, PERRL and normal accommodation ENT: Present mucous membranes moist *Routine Neck Exam Neck: Present supple, full ROM and trachea midline *Routine Respiratory Exam Respiratory: Present normal respiratory effort, able to speak in complete sentences and symmetric chest movement; Absent respiratory distress *Routine Cardiovascular Exam Cardiovascular: Present RRR, Normal S1, Normal S2 and tachycardia *Routine Abdominal Exam Abdominal: Present soft, normoactive bowel sounds, distended, guarding and organomegaly *Routine Rectal Exam Rectal:: deferred *Routine Genitalia Exam Genitalia:: deferred *Routine Extremities Exam Extremities: Present full ROM, pulses intact and normal capillary refill; Absent cyanosis, clubbing or edema *Routine Skin Exam Skin: Present intact, dry and warm *Routine Neurological Exam Neurological: Present alert, oriented X3, normal reflexes, moving all extremities and normal speech Routine Psychiatric Exam Psychiatric: Present normal thought process, cooperative and good judgment H&P: Result Imaging and Cardiology EKG: Status: image reviewed by me and final report CT scan - abdomen: Status: image reviewed by me, Preliminary report and final report Assessment and Plan *Assessment and plan (1) Sepsis: Status: Acute Qualifiers: Sepsis acute organ dysfunction status: without acute organ dysfunction Sepsis type: sepsis due to unspecified organism Qualified Code(s): A41.9 - Sepsis, unspecified organism Category: Medical Code(s): A41.9 - Sepsis, unspecified organism (2) Colitis: Status: Acute Category: Medical Code(s): K52.9 - Noninfective gastroenteritis and colitis, unspecified (3) Splenomegaly: Status: Acute Category: Medical Code(s): R16.1 - Splenomegaly, not elsewhere classified (4) COPD (chronic obstructive pulmonary disease): Status: Acute Qualifiers: COPD type: unspecified COPD Qualified Code(s): J44.9 - Chronic obstructive pulmonary disease, unspecified Category: Medical Code(s): J44.9 - Chronic obstructive pulmonary disease, unspecified (5) CAD, multiple vessel: Status: Chronic Category: Medical Code(s): I25.10 - Atherosclerotic heart disease of [place] coronary artery without angina pectoris (6) S/P CABG x 6: Status: Chronic Category: Surgical Code(s): Z95.1 - Presence of aortocoronary bypass graft (7) Hypertension: Status: Chronic Qualifiers: Hypertension type: primary hypertension Qualified Code(s): I10 - Essential (primary) hypertension Category: Medical Code(s): I10 - Essential (primary) hypertension (8) Hyperlipidemia: Status: Chronic Qualifiers: Hyperlipidemia type: mixed hyperlipidemia Qualified Code(s): E78.2 - Mixed hyperlipidemia Category: Medical Code(s): E78.5 - Hyperlipidemia, unspecified (9) Diabetes mellitus with diabetic neuropathy, with long-term current use of insulin: Status: Chronic Qualifiers: Diabetes mellitus type: type 2 Qualified Code(s): E11.40 - Type 2 diabetes mellitus with diabetic neuropathy, unspecified; Z79.4 - group home (current) use of insulin Category: Medical Code(s): E11.40 - Type 2 diabetes mellitus with diabetic neuropathy, unspecified; Z79.4 - group home (current) use of insulin Plan 68-year-old male with PMHx of CAD status post CABG, type 2 diabetes, diabetic foot wound s/p toes amputation, hypertension, hyperlipidemia, and pancreatitis presenting to the emergency department for evaluation of ventral abdominal pain. on Arrival patient presented non toxic, with diffuse abdominal pain. Underwent on sepsis workup. Labs shows mild leukocytosis with lactic acidosis. CTA of the abdomen was obtained. Imaging reviewed. There is a concern for mild colitis with splenomegaly. Discussed with the ER doctor for admission. Plan as follow: -sepsis without organ dysfunction, likely secondary to mild colitis: Admit patient for medical services. Dispo MedSurg Continues IV fluid resuscitation Continue Zosyn 4.5 g every 8h Surgical consult. Monitor for sepsis and organ dysfunction Pain management with morphine as needed Blood culture pending -Mild splenomegaly: Findings seen on the CT of the abdomen, might be secondary to the infection. Patient history of VRE. Will continue to monitor Continue treatment as above -Other chronic conditions: COPD, CAD status post CABG, hypertension, hyperlipidemia, Condition reviewed and stable Resume home medication -Insulin-dependent diabetes with neuropathy: Monitor for blood sugar before meal Resume home insulin On metformin and gabapentin Sliding scale Lovenox for DVT prophylaxis on Protonix for GI bleed prophylaxis and GERD Full code Attending attestation Patient was seen and evaluated at the bedside myself, agree with BUSINESS LAW TEACHER note.
[2023-11-08] MEDS: PIPERACILLIN/TAZO 3.375 GM in 0.9 % SODIUM CHLORIDE 50 ML IV (02:43)
--- NOTE | 2023-11-08 02:53 | PC.NURSE ---
Report given to SANDY Castañeda
--- NOTE | 2023-11-08 03:04 | PC.NURSE ---
Patient arrived to floor via wheelchair from ED at 3:03.
--- NOTE | 2023-11-08 04:34 | PC.WOUNDNOTE ---
Addendum entered by Shyla Reyes RN 11/08/23 04:35: Left foot Left foot left foot right foot Original Note: Left foot
[2023-11-08] MEDS: 0.9 % SODIUM CHLORIDE 1000ML 1,000 ML 50 ML IV (05:25)
[2023-11-08 05:26] LABS: Reflex Lactic Add Lactic Reflex
[2023-11-08] MEDS: humaLOG 100 UNITS/ML 3ML VIAL (SSI) SQ ×3 (05:41→16:36)
--- NOTE | 2023-11-08 06:12 | PC.NURSE ---
Patient arrived to unit from ED at 0303 via wheelchair, transferred via staff. Patient is alert and orient X4. Pleasant and cooperative with staff. Patient educated roll contour grinder light, tv remote and bed controller with a voice of understanding. Full assessment to follow.
[2023-11-08 07:13] LABS: POC Glucose,Bedside 238 (70-110)
[2023-11-08 08:10] LABS: Lactic Acid Follow Up (RFLX 1) 1.9 mmol/L (0.7-2.1)
[2023-11-08 08:14] LABS: Alanine Aminotransferase 52 U/L (12-78); Alkaline Phosphatase 151 U/L (38-126); Anion Gap 7.9 mEq/L (5-15); Aspartate Amino Transferase 45 U/L (17-59); Bilirubin,Total 0.4 mg/dl (0.2-1.3); Blood Urea Nitrogen 17 mg/dl (9-20); Calcium 7.8 mg/dl (8.4-10.2); Carbon Dioxide 25 mmol/L (22.0-30.0); Chloride 103 mmol/L (98-107); Creatinine Clearance Estimated 75 mL/min (50-200); Estimated Glomerular Filt Rate 112 ml/min (>60); GFR (African American) 135 ML/MIN (>60); Globulin 3.1 g/dL (1.3-3.2); Glucose 202 mg/dl (74-100); Magnesium 1.2 mg/dl (1.6-2.3); Potassium 3.9 mmoL/L (3.5-5.1); Sodium 132 mmol/L (136-145); Total Protein,Serum 6.1 g/dl (6.3-8.2)
[2023-11-08 08:25] LABS: Basophils % 0.2 % (0.1-2.0); Eosinophils # 0.1 K/mm3 (0.0-0.4); Eosinophils % 1.5 % (0.1-12.0); Hematocrit 31.4 % (42.0-52.0); Lymphocytes # 0.9 K/mm3 (0.7-4.5); Lymphocytes % 13.4 % (10-50); Mean Corpuscular HGB Conc 33.4 g/dL (31.8-35.4); Mean Corpuscular Volume 83.9 fl (80-94); Mean Platelet Volume 9.1 fl (7.4-10.4); Monocytes # 0.3 K/mm3 (0.1-1.0); Neutrophils # 5.2 K/mm3 (1.8-7.8); Neutrophils % 80.8 % (37.0-80.0); Platelet Count 117 K/mm3 (142-424); Red Blood Count 3.75 M/mm3 (4.60-6.20); Red Cell Distribution Width 15.8 % (11.5-17.5); White Blood Count 6.5 K/mm3 (4.8-10.8)
[2023-11-08] MEDS: ENOXAPARIN 40MG/0.4ML SYRINGE 40 MG SQ (09:39)
[2023-11-08] MEDS: PIPERACILLIN/TAZO 4.5 GM in 0.9 % SODIUM CHLORIDE 100 ML IV ×3 (09:40→20:38)
[2023-11-08] MEDS: PANTOPRAZOLE 40MG TABLET 40 MG PO (09:40)
[2023-11-08 09:52] LABS: Hemoglobin 10.5 g/dL (14.1-18.0)
--- NOTE | 2023-11-08 10:57 | HMH.PHAINT1 ---
Pharmacy Intervention Comments: MEDICATION RECONCILIATION COMPLETED ON PATIENT USING ANNIE REPORT, EXTERNAL FILL HISTORY, AND LIST FROM PCP OFFICE. -RAVEN DAVENPORTD
[2023-11-08 11:52] LABS: POC Glucose,Bedside 220 (70-110)
[2023-11-08] MEDS: GABAPENTIN 800MG TABLET 800 MG PO ×3 (14:22→20:38)
[2023-11-08] MEDS: LISINOPRIL 5MG TABLET 5 MG PO (14:22)
[2023-11-08] MEDS: FUROSEMIDE 40 MG TABLET PO (14:22)
[2023-11-08] MEDS: LORATADINE 10MG TABLET 10 MG PO (14:22)
[2023-11-08 16:36] LABS: POC Glucose,Bedside 390 (70-110)
--- NOTE | 2023-11-08 17:09 | PC.NURSE ---
patient A&Ox4 and vss. Patient has had no c/o pain this shift. Patient tolerating clear liquid diet and has had no nausea this shift. Patient tolerating IV fluids and antibiotics.
--- NOTE | 2023-11-08 20:30 | PC.NURSE ---
Blood sugar 451, called Sonal Mullins, stated to give flexpen, hold humalog lispro, recheck blood sugar 2300.
[2023-11-08 20:34] LABS: POC Glucose,Bedside 451 (70-110)
[2023-11-08] MEDS: humaLOG MIX 75/25 3ML FLEXPEN 60 UNIT SQ (20:37)
[2023-11-08] MEDS: METOPROLOL TARTRATE 25MG TABLET 25 MG PO (20:38)
[2023-11-08] MEDS: ATORVASTATIN 20MG TABLET 20 MG PO (20:38)
[2023-11-08] MEDS: ACETAMINOPHEN 325MG TAB 650 MG PO (21:52)
--- NOTE | 2023-11-08 23:12 | PC.NURSE ---
Rechecked pt blood sugar, reading 277, notified Jennifer, continue to hold humalog lispro ACHS.
[2023-11-08 23:19] LABS: POC Glucose,Bedside 277 (70-110)
[2023-11-09] MEDS: PIPERACILLIN/TAZO 4.5 GM in 0.9 % SODIUM CHLORIDE 100 ML IV ×2 (02:28→09:16)
[2023-11-09] MEDS: 0.9 % SODIUM CHLORIDE 1000ML 1,000 ML 50 ML IV (03:34)
[2023-11-09 04:00] VITALS: BMI 24.8
--- NOTE | 2023-11-09 05:09 | PC.NURSE ---
Pt A&Ox4. Pt up to the chair all night, when ask about getting in bed, pt states he sleeps in a chair and is comfortable there. Pt lung sounds clear. Bowel sounds active, no reports of bowel movement this shift, explained to pt need for sample, pt verbalized understanding. Pt diabetic foot ulcers bandaged, pt states he sees podiatry for care. Pt ambulates in room, uses urinal. Pt complained of pain 1 time, treated per mar. No new complaints from pt.
[2023-11-09 06:00] VITALS: BP 119/62; PULSE 71; RESP 17; TEMP 36.6; O2SAT 96
[2023-11-09 06:02] LABS: POC Glucose,Bedside 154 (70-110)
--- NOTE | 2023-11-09 06:54 | P.CONS_ITS ---
History of Present Illness *Admission Date: 11/08/23 *Reason for visit:: Abdominal pain *History of present illness: Patient is a 68-year-old male from [place] with history of COPD, coronary artery disease, prior non-STEMI, prior CABG x 6, diabetes with history of diabetic foot infection and amputations, hypertension, hyperlipidemia. He had presented to the emergency department at [facility] just after midnight in the italian tutor hours of 11/08/2023. Several hours prior to presentation he had developed mid abdominal pain with associated nausea and nonbilious vomiting. No history of diarrhea. No exacerbating or alleviating factors. Evaluation in the emergency department revealed a mild leukocytosis of 12,400. Liver function tests and pancreatic enzymes normal. CT scan imaging revealed findings read as, mild colitis extending from the distal descending colon to the distal sigmoid colon. Apparently surgical consultation order was placed for abdominal pain . Patient currently asymptomatic. Tolerating liquid diet. He is being discharged. [facility] Disclaimer: The information contained in this section may have been updated after the patient was seen, as this information can be updated by other users. Medical History Amputation of toe of left foot CAD, multiple vessel Chronic sinusitis Deviated nasal septum Diabetic foot Dyspnea Erectile dysfunction Gangrene of toe of left foot History of amputation of toe History of diabetes mellitus, type II History of hyperlipidemia History of hypertension Nail dystrophy Non-STEMI (non-ST elevated myocardial infarction) Psoriasis Sinus mucosal thickening Surgical History History of amputation of toe History of nasal septoplasty Hx of cataract surgery S/P CABG x 6 Family History Mother Heart attack Social History (Updated 11/08/23 @ 03:39 by Olga Kerr RN) Smoking Status: Former smoker tobacco type: cigarettes packs per day: 3 years smoked: 25 smoking status stop date: 11/02/2001 how long ago did patient quit smokin second hand exposure: Yes alcohol intake: former substance use type: denies use current occupational status: disabled Travel in the last 8 weeks: None household members: none housing: apartment caffeine: Yes Meds Home Medications and Allergies Home Medications Medication Instructions Recorded Confirmed Type hydrocodone 10 mg-acetaminophen 1 tab PO Q6HP PRN Moderate Pain 11/27/21 11/08/23 History 325 mg tablet (Scale Score 5-6) lancets 28 gauge (FreeStyle #100 ea 04/01/22 11/08/23 History Lancets) pen needle, diabetic 31 gauge x #50 ea 08/20/22 11/08/23 History 3/16 (Easy Comfort Pen [place]) tadalafil 20 mg tablet (Cialis) 20 mg PO DAILY PRN sexual activity 12/15/22 11/08/23 Rx #10 tabs secukinumab 150 mg/mL subcutaneous 150 mg SQ WEEKLY Diabetes 01/07/23 11/08/23 History pen injector (Cosentyx Pen 300 mg/2 Pens () gabapentin 800 mg tablet 800 mg PO QID Pain 07/02/23 11/08/23 History ipratropium bromide 0.02 % 2.5 ml inhalation Q12H Breathing 07/02/23 11/08/23 History solution for inhalation Problems loratadine 10 mg tablet (Claritin) 10 mg PO DAILY Allergy Symptoms 07/02/23 11/08/23 History metformin 1,000 mg tablet 1,000 mg PO BID Diabetes 07/02/23 11/08/23 History benzonatate 100 mg capsule 100 mg PO TIDP PRN Cough #30 caps 11/05/23 11/08/23 Rx albuterol sulfate 90 mcg/actuation 2 inh inhalation Q6HP PRN 11/08/23 11/08/23 History aerosol inhaler shortness of breath or wheezing atorvastatin 20 mg tablet 20 mg PO HS Cholesterol 11/08/23 11/08/23 History furosemide 40 mg tablet 40 mg PO DAILY Fluid 11/08/23 11/08/23 History insulin lispro protamine-lispro 60 unit SQ BID Diabetes 11/08/23 11/08/23 History 100 unit/mL (75-25) subcutaneous pen (Humalog Mix 75-25 [place]ikPen) lisinopril 5 mg tablet 5 mg PO DAILY High Blood Pressure 11/08/23 11/08/23 History metoprolol tartrate 25 mg tablet 25 mg PO BID High Blood Pressure 11/08/23 11/08/23 History omeprazole 20 mg capsule,delayed 20 mg PO BID Acid Reflux 11/08/23 11/08/23 History release sodium chloride 0.65 % nasal spray 2 spray intranasal QIDP PRN dry 11/08/23 11/08/23 History aerosol ([place] Saline) nasal passages amoxicillin 875 mg-potassium 1 tab PO BID 5 days #10 tabs 11/09/23 Rx clavulanate 125 mg tablet New Prescriptions to Start Prescriptions: amoxicillin-pot clavulanate Kathy Valencia Allergies Allergy/AdvReac Type Severity Reaction Status Date / Time No Known Allergies Allergy Verified 11/05/23 10:44 Exam (Inpt) Vital signs and Labs for Last 24 Hours: Temp Pulse Resp BP Pulse Ox O2 Del Method O2 Flow Rate 97.9 F 71 17 119/62 96 Room Air 2 11/09/23 06:00 11/09/23 06:00 11/09/23 06:00 11/09/23 06:00 11/09/23 06:00 11/09/23 06:00 11/08/23 15:58 Laboratory Results - last 24 hr 11/08/23 05:17: POC Glucose 238 H 11/08/23 07:37: WBC 6.5 D, RBC 3.75 L, Hgb 10.5 L D, Hct 31.4 L, MCV 83.9, MCH 28.0, MCHC 33.4, RDW 15.8, Plt Count 117 L, MPV 9.1, Neut % (Auto) 80.8 H, Lymph % (Auto) 13.4, [place] % (Auto) 4.0, Eos % (Auto) 1.5, Baso % (Auto) 0.2, Neut # (Auto) 5.2, Lymph # (Auto) 0.9, [place] # (Auto) 0.3, Eos # (Auto) 0.1, Baso # (Auto) 0.0, Sodium 132 L, Potassium 3.9, Chloride 103, Carbon Dioxide 25, Anion Gap 7.9, BUN 17, Creatinine 0.70 D, Estimated Creat Clear 75, Estimated GFR 112, Est GFR ( Amer) 135 D, Glucose 202 H D, Lactate 1.9, Calcium 7.8 L, Magnesium 1.2 L, Total Bilirubin 0.4, AST 45 D, ALT 52 D, Alkaline Phosphatase 151 H, Total Protein 6.1 L D, Albumin 3.0 L D, Globulin 3.1, Albumin/Globulin R atio 1.0 L 11/08/23 11:42: POC Glucose 220 H 11/08/23 16:28: POC Glucose 390 H* 11/08/23 20:28: POC Glucose 451 H* 11/08/23 23:11: POC Glucose 277 H 11/09/23 05:54: POC Glucose 154 H I & O for Labs for Last 24 Hours: Intake & Output 11/06/23 11/07/23 11/08/23 11/09/23 11:59 11:59 11:59 11:59 Intake Total 1600 / 1600 1056 / 1056 Output Total 0 / 0 3450 / 3450 Balance 1600 / 1600 -2394 / -2394 Weight 167 lb 11.29 oz 167 lb 11.996 oz GI: Present soft; Absent tenderness Results Labs 11/09/23 06:54 11/09/23 06:54 Labs: Laboratory Results - last 24 hr 11/08/23 05:17: POC Glucose 238 H 11/08/23 07:37: WBC 6.5 D, RBC 3.75 L, Hgb 10.5 L D, Hct 31.4 L, MCV 83.9, MCH 28.0, MCHC 33.4, RDW 15.8, Plt Count 117 L, MPV 9.1, Neut % (Auto) 80.8 H, Lymph % (Auto) 13.4, [place] % (Auto) 4.0, Eos % (Auto) 1.5, Baso % (Auto) 0.2, Neut # (Auto) 5.2, Lymph # (Auto) 0.9, [place] # (Auto) 0.3, Eos # (Auto) 0.1, Baso # (Auto) 0.0, Sodium 132 L, Potassium 3.9, Chloride 103, Carbon Dioxide 25, Anion Gap 7.9, BUN 17, Creatinine 0.70 D, Estimated Creat Clear 75, Estimated GFR 112, Est GFR ( Amer) 135 D, Glucose 202 H D, Lactate 1.9, Calcium 7.8 L, Magnesium 1.2 L, Total Bilirubin 0.4, AST 45 D, ALT 52 D, Alkaline Phosphatase 151 H, Total Protein 6.1 L D, Albumin 3.0 L D, Globulin 3.1, Albumin/Globulin Ratio 1.0 L 11/08/23 11:42: POC Glucose 220 H 11/08/23 16:28: POC Glucose 390 H* 11/08/23 20:28: POC Glucose 451 H* 11/08/23 23:11: POC Glucose 277 H 11/09/23 05:54: POC Glucose 154 H Assessment and Plan *Assessment and plan (1) Abdominal pain: Status: Acute Category: Medical Code(s): R10.9 - Unspecified abdominal pain Plan No surgical intervention at this time
[2023-11-09 07:13] LABS: Basophils % 0.5 % (0.1-2.0); Eosinophils # 0.2 K/mm3 (0.0-0.4); Hematocrit 36.7 % (42.0-52.0); Lymphocytes # 0.9 K/mm3 (0.7-4.5); Lymphocytes % 23.2 % (10-50); Mean Corpuscular HGB Conc 32.4 g/dL (31.8-35.4); Mean Corpuscular Hemoglobin 27.7 pg (27.0-31.2); Mean Corpuscular Volume 85.7 fl (80-94); Mean Platelet Volume 9.7 fl (7.4-10.4); Monocytes # 0.3 K/mm3 (0.1-1.0); Monocytes % 7.4 % (1.7-9.3); Neutrophils # 2.6 K/mm3 (1.8-7.8); Platelet Count 115 K/mm3 (142-424); Red Blood Count 4.28 M/mm3 (4.60-6.20); Red Cell Distribution Width 15.7 % (11.5-17.5); White Blood Count 3.9 K/mm3 (4.8-10.8)
[2023-11-09 07:19] LABS: Alanine Aminotransferase 52 U/L (12-78); Albumin Level 3.4 g/dl (3.5-5.0); Alkaline Phosphatase 152 U/L (38-126); Anion Gap 6.4 mEq/L (5-15); Aspartate Amino Transferase 50 U/L (17-59); Bilirubin,Total 0.5 mg/dl (0.2-1.3); Blood Urea Nitrogen 13 mg/dl (9-20); Calcium 8.3 mg/dl (8.4-10.2); Carbon Dioxide 31 mmol/L (22.0-30.0); Chloride 103 mmol/L (98-107); Creatinine Clearance Estimated 75 mL/min (50-200); Estimated Glomerular Filt Rate 74 ml/min (>60); GFR (African American) 90 ML/MIN (>60); Globulin 3.4 g/dL (1.3-3.2); Glucose 147 mg/dl (74-100); Potassium 4.4 mmoL/L (3.5-5.1); Sodium 136 mmol/L (136-145); Total Protein,Serum 6.8 g/dl (6.3-8.2)
[2023-11-09 07:42] VITALS: BP 119/58; PULSE 61; RESP 14; TEMP 36.4; O2SAT 99
[2023-11-09 07:50] LABS: Adenovirus F 40/41, stool Not Detected (NotDetected); Astrovirus Not Detected (NotDetected); Campylobacter Not Detected (NotDetected); Clostridium Difficile A/B, PCR Not Detected (NotDetected); Cryptosporidium Not Detected (NotDetected); Cyclospora Cayetanesis Not Detected (NotDetected); Entamoeba histolytica Not Detected (NotDetected); Enteroaggregative E coli Not Detected (NotDetected); Enteropathogenic E coli Not Detected (NotDetected); Enterotoxigenic E coli Not Detected (NotDetected); Giardia lamblia Not Detected (NotDetected); Norovirus Not Detected (NotDetected); Plesimonas Shigalloides, PCR Not Detected (NotDetected); Rotavirus A Not Detected (NotDetected); Salmonella, PCR Not Detected (NotDetected); Sapovirus Not Detected (NotDetected); Shiga-like toxin E coli Not Detected (NotDetected); Shigella Enterovasive E coli Not Detected (NotDetected); Vibrio Cholerae Not Detected (NotDetected); Vibrio, PCR Not Detected (NotDetected); Yersinia Entercolitica, PCR Not Detected (NotDetected)
--- NOTE | 2023-11-09 08:55 | P.DS_ITS ---
General Admission date:: 11/08/23 Discharge date: 11/09/23 HPI HPI HPI: Patient is a 68-year-old male from [place] with history of COPD, coronary artery disease, prior non-STEMI, prior CABG x 6, diabetes with history of diabetic foot infection and amputations, hypertension, hyperlipidemia. He had presented to the emergency department at [facility] just after midnight in the reconcilement clerk hours of 11/08/2023. Several hours prior to presentation he had developed mid abdominal pain with associated nausea and nonbilious vomiting. No history of diarrhea. No exacerbating or alleviating factors. Evaluation in the emergency department revealed a mild leukocytosis of 12,400. Liver function tests and pancreatic enzymes normal. CT scan imaging revealed findings read as, mild colitis extending from the distal descending colon to the distal sigmoid colon. Apparently surgical consultation order was placed for abdominal pain . Hospital Course Hospital Course Hospital Course: Patient was seen and evaluated at the bedside on the day of discharge. Patient is stable for discharge. Patient wishes to be discharged. All patient questions were answered and patient was given time to ask questions. Patient was discharged in stable condition. Patient understands that she can return to ER in case of any sudden changes in health. Total time spent on DC - 38 mins 68-year-old male with PMHx of CAD status post CABG, type 2 diabetes, diabetic foot wound s/p toes amputation, hypertension, hyperlipidemia, and pancreatitis presenting to the emergency department for evaluation of ventral abdominal pain. on Arrival patient presented non toxic, with diffuse abdominal pain. Underwent on sepsis workup. Labs shows mild leukocytosis with lactic acidosis. CTA of the abdomen was obtained. Imaging reviewed. There is a concern for mild colitis with splenomegaly. Discussed with the ER doctor for admission. Plan as follow: -sepsis without organ dysfunction, likely secondary to mild colitis: - improved, dc on amox-clav -Other chronic conditions: COPD, CAD status post CABG, hypertension, hyperlipidemia, Condition reviewed and stable Resume home medication -Insulin-dependent diabetes with neuropathy: Monitor for blood sugar before meal Resume home insulin On metformin and gabapentin Exam Data for Last 24 hours Vital signs and Labs for Last 24 Hours: Temp Pulse Resp BP Pulse Ox O2 Del Method O2 Flow Rate 97.6 F 61 14 119/58 L 99 Room Air 2 11/09/23 07:42 11/09/23 07:42 11/09/23 07:42 11/09/23 07:42 11/09/23 07:42 11/09/23 07:42 11/08/23 15:58 Laboratory Results - last 24 hr 11/08/23 07:37: Hgb 10.5 L D 11/08/23 11:42: POC Glucose 220 H 11/08/23 16:28: POC Glucose 390 H* 11/08/23 20:28: POC Glucose 451 H* 11/08/23 23:11: POC Glucose 277 H 11/09/23 05:54: POC Glucose 154 H 11/09/23 06:54: WBC 3.9 L D, RBC 4.28 L, Hct 36.7 L, MCV 85.7, MCH 27.7, MCHC 32.4, RDW 15.7, Plt Count 115 L, MPV 9.7, Neut % (Auto) 65.0, Lymph % (Auto) 23.2, [place] % (Auto) 7.4, Eos % (Auto) 4.0, Baso % (Auto) 0.5, Neut # (Auto) 2.6, Lymph # (Auto) 0.9, [place] # (Auto) 0.3, Eos # (Auto) 0.2, Baso # (Auto) 0.0, Sodium 136, Potassium 4.4, Chloride 103, Carbon Dioxide 31 H, Anion Gap 6.4, BUN 13, Creatinine 1.00 D, Estimated Creat Clear 75, Estimated GFR 74, Est GFR ( Amer) 90 D, Glucose 147 H D, Calcium 8.3 L, Total Bilirubin 0.5, AST 50, ALT 52, Alkaline Phosphatase 152 H, Total Protein 6.8, Albumin 3.4 L D, Globulin 3.4 H, Albumin/Globulin Ratio 1.0 L I & O for Last 24 hours: Intake & Output 11/06/23 11/07/23 11/08/23 11/09/23 23:59 23:59 23:59 23:59 Intake Total 2140 / 2140 516 / 516 Output Total 3050 / 3050 825 / 825 Balance -910 / -910 -309 / -309 Weight 76.07 kg 76.09 kg Constitutional Constitutional: no acute distress *Routine HEENT Exam Head: Present normocephalic Eye: Present EOMI and PERRL ENT: Present mucous membranes moist *Routine Neck Exam Neck: Present supple; Absent lymphadenopathy *Routine Respiratory Exam Respiratory: Present CTA bilaterally *Routine Cardiovascular Exam Cardiovascular: Present RRR *Routine Abdominal Exam Abdominal: Present soft and normoactive bowel sounds; Absent tenderness *Routine Extremities Exam Extremities: Absent cyanosis, clubbing or edema *Routine Skin Exam Skin: Present warm; Absent rash *Routine Neurological Exam Neurological: Present alert and oriented X3 Results Data Completed and Pending Labs on day of discharge: Labs from last 24 hours 11/09/23 11/09/23 11/08/23 06:54 05:54 23:11 WBC 3.9 L D RBC 4.28 L Hgb Hct 36.7 L MCV 85.7 MCH 27.7 MCHC 32.4 RDW 15.7 Plt Count 115 L MPV 9.7 Neut % (Auto) 65.0 Lymph % (Auto) 23.2 [place] % (Auto) 7.4 Eos % (Auto) 4.0 Baso % (Auto) 0.5 Neut # (Auto) 2.6 Lymph # (Auto) 0.9 [place] # (Auto) 0.3 Eos # (Auto) 0.2 Baso # (Auto) 0.0 Sodium 136 Potassium 4.4 Chloride 103 Carbon Dioxide 31 H Anion Gap 6.4 BUN 13 Creatinine 1.00 D Estimated Creat Clear 75 Estimated GFR 74 Est GFR ( Amer) 90 D Glucose 147 H D POC Glucose 154 H 277 H Calcium 8.3 L Total Bilirubin 0.5 AST 50 ALT 52 Alkaline Phosphatase 152 H Total Protein 6.8 Albumin 3.4 L D Globulin 3.4 H Albumin/Globulin Ratio 1.0 L 11/08/23 11/08/23 11/08/23 20:28 16:28 11:42 WBC RBC Hgb Hct MCV MCH MCHC RDW Plt Count MPV Neut % (Auto) Lymph % (Auto) [place] % (Auto) Eos % (Auto) Baso % (Auto) Neut # (Auto) Lymph # (Auto) [place] # (Auto) Eos # (Auto) Baso # (Auto) Sodium Potassium Chloride Carbon Dioxide Anion Gap BUN Creatinine Estimated Creat Clear Estimated GFR Est GFR ( Amer) Glucose POC Glucose 451 H* 390 H* 220 H Calcium Total Bilirubin AST ALT Alkaline Phosphatase Total Protein Albumin Globulin Albumin/Globulin Ratio 11/08/23 07:37 WBC RBC Hgb 10.5 L D Hct MCV MCH MCHC RDW Plt Count MPV Neut % (Auto) Lymph % (Auto) [place] % (Auto) Eos % (Auto) Baso % (Auto) Neut # (Auto) Lymph # (Auto) [place] # (Auto) Eos # (Auto) Baso # (Auto) Sodium Potassium Chloride Carbon Dioxide Anion Gap BUN Creatinine Estimated Creat Clear Estimated GFR Est GFR ( Amer) Glucose POC Glucose Calcium Total Bilirubin AST ALT Alkaline Phosphatase Total Protein Albumin Globulin Albumin/Globulin Ratio DS: Diagnosis Discharge Diagnosis (1) Sepsis: Status: Acute Code(s): A41.9 - Sepsis, unspecified organism Qualifiers: Sepsis acute organ dysfunction status: without acute organ dysfunction Sepsis type: sepsis due to unspecified organism Qualified Code(s): A41.9 - Sepsis, unspecified organism (2) Colitis: Status: Acute Code(s): K52.9 - Noninfective gastroenteritis and colitis, unspecified (3) Splenomegaly: Status: Acute Code(s): R16.1 - Splenomegaly, not elsewhere classified (4) COPD (chronic obstructive pulmonary disease): Status: Acute Code(s): J44.9 - Chronic obstructive pulmonary disease, unspecified Qualifiers: COPD type: unspecified COPD Qualified Code(s): J44.9 - Chronic obstructive pulmonary disease, unspecified (5) CAD, multiple vessel: Status: Chronic Code(s): I25.10 - Atherosclerotic heart disease of [place] coronary artery without angina pectoris (6) S/P CABG x 6: Status: Chronic Code(s): Z95.1 - Presence of aortocoronary bypass graft (7) Hypertension: Status: Chronic Code(s): I10 - Essential (primary) hypertension Qualifiers: Hypertension type: primary hypertension Qualified Code(s): I10 - Essential (primary) hypertension (8) Hyperlipidemia: Status: Chronic Code(s): E78.5 - Hyperlipidemia, unspecified Qualifiers: Hyperlipidemia type: mixed hyperlipidemia Qualified Code(s): E78.2 - Mixed hyperlipidemia (9) Diabetes mellitus with diabetic neuropathy, with long-term current use of insulin: Status: Chronic Code(s): E11.40 - Type 2 diabetes mellitus with diabetic neuropathy, unspecified; Z79.4 - prison (current) use of insulin Qualifiers: Diabetes mellitus type: type 2 Qualified Code(s): E11.40 - Type 2 diabetes mellitus with diabetic neuropathy, unspecified; Z79.4 - terminal operator (current) use of insulin Meds Home Medications and Allergies Home Medications Medication Instructions Recorded Confirmed Type hydrocodone 10 mg-acetaminophen 1 tab PO Q6HP PRN Moderate Pain 11/27/21 11/08/23 History 325 mg tablet (Scale Score 5-6) lancets 28 gauge (FreeStyle #100 ea 04/01/22 11/08/23 History Lancets) pen needle, diabetic 31 gauge x #50 ea 08/20/22 11/08/23 History 3/16 (Easy Comfort Pen [place]) tadalafil 20 mg tablet (Cialis) 20 mg PO DAILY PRN sexual activity 12/15/22 11/08/23 Rx #10 tabs secukinumab 150 mg/mL subcutaneous 150 mg SQ WEEKLY Diabetes 01/07/23 11/08/23 History pen injector (Cosentyx Pen 300 mg/2 Pens () gabapentin 800 mg tablet 800 mg PO QID Pain 07/02/23 11/08/23 History ipratropium bromide 0.02 % 2.5 ml inhalation Q12H Breathing 07/02/23 11/08/23 History solution for inhalation Problems loratadine 10 mg tablet (Claritin) 10 mg PO DAILY Allergy Symptoms 07/02/23 11/08/23 History metformin 1,000 mg tablet 1,000 mg PO BID Diabetes 07/02/23 11/08/23 History benzonatate 100 mg capsule 100 mg PO TIDP PRN Cough #30 caps 11/05/23 11/08/23 Rx albuterol sulfate 90 mcg/actuation 2 inh inhalation Q6HP PRN 11/08/23 11/08/23 History aerosol inhaler shortness of breath or wheezing atorvastatin 20 mg tablet 20 mg PO HS Cholesterol 11/08/23 11/08/23 History furosemide 40 mg tablet 40 mg PO DAILY Fluid 11/08/23 11/08/23 History insulin lispro protamine-lispro 60 unit SQ BID Diabetes 11/08/23 11/08/23 History 100 unit/mL (75-25) subcutaneous pen (Humalog Mix 75-25 KwikPen) lisinopril 5 mg tablet 5 mg PO DAILY High Blood Pressure 11/08/23 11/08/23 History metoprolol tartrate 25 mg tablet 25 mg PO BID High Blood Pressure 11/08/23 11/08/23 History omeprazole 20 mg capsule,delayed 20 mg PO BID Acid Reflux 11/08/23 11/08/23 History release sodium chloride 0.65 % nasal spray 2 spray intranasal QIDP PRN dry 11/08/23 11/08/23 History aerosol ([place] Saline) nasal passages amoxicillin 875 mg-potassium 1 tab PO BID 5 days #10 tabs 11/09/23 Rx clavulanate 125 mg tablet New Prescriptions to Start Prescriptions: amoxicillin-pot clavulanate Kathy Valencia Allergies Allergy/AdvReac Type Severity Reaction Status Date / Time No Known Allergies Allergy Verified 11/05/23 10:44 Discharge Plan Disposition Patient Disposition: Home, Self-Care Condition: Good Follow up Plan Prescriptions/Medication Reconciliation: New amoxicillin-pot clavulanate 875-125 mg tablet 1 tab PO BID 5 Days Qty: 10 0RF Continued hydrocodone-acetaminophen 10-325 mg tablet 1 tab PO Q6HP PRN (Reason: Moderate Pain (Scale Score 5-6)) (DME) lancets [FreeStyle Lancets] 28 gauge misc See Rx Instructions .ROUTE .MEDSUPPLY Qty: 100 Rx Instructions: As directed tadalafil [Cialis] 20 mg tablet 20 mg PO DAILY PRN (Reason: sexual activity) Qty: 10 5RF Rx Instructions: administer approximately 30min before sexual activity; do not use more than 1 dose per 24hrs (DME) pen needle, diabetic [Easy Comfort Pen [place]] 31 gauge x 3/16 needle See Rx Instructions .ROUTE .MEDSUPPLY Qty: 50 Rx Instructions: As directed Cosentyx Pen (2 Pens) 150 mg/mL pen injector 150 mg SQ WEEKLY metformin 1,000 mg tablet 1,000 mg PO BID loratadine [Claritin] 10 mg tablet 10 mg PO DAILY ipratropium bromide 0.02 % solution 2.5 ml inhalation Q12H gabapentin 800 mg tablet 800 mg PO QID benzonatate 100 mg capsule 100 mg PO TIDP PRN (Reason: Cough) Qty: 30 0RF atorvastatin 20 mg tablet 20 mg PO HS insulin lispro protamin-lispro [Humalog Mix 75-25 KwikPen] 100 unit/mL (75-25) insulin pen 60 unit SQ BID furosemide 40 mg tablet 40 mg PO DAILY omeprazole 20 mg capsule,delayed release(DR/EC) 20 mg PO BID lisinopril 5 mg tablet 5 mg PO DAILY albuterol sulfate 90 mcg/actuation HFA aerosol inhaler 2 inh inhalation Q6HP PRN (Reason: shortness of breath or wheezing) [place] Saline 0.65 % aerosol,spray 2 spray intranasal QIDP PRN (Reason: dry nasal passages) metoprolol tartrate 25 mg tablet 25 mg PO BID Discontinued azithromycin 250 mg tablet 250 mg PO DAILY doxycycline hyclate 100 mg tablet 100 mg PO BID Problem Reconciliation Problems Reviewed?: Yes Patient Discharge Instructions ACTIVITY: Continue current activity and Ambulate as tolerated DIET: continue same diet Patient Instructions: DI for Abdominal Pain-Adult, DI for Sepsis -- Adult, DI for Colitis Providers Primary Care Provider: Kathy Valencia Admit Provider: Lucas Lopez Attending Provider: Kathy Valencia
[2023-11-09] MEDS: METOPROLOL TARTRATE 25MG TABLET 25 MG PO (09:15)
[2023-11-09] MEDS: GABAPENTIN 800MG TABLET 800 MG PO ×2 (09:15→14:01)
[2023-11-09] MEDS: LORATADINE 10MG TABLET 10 MG PO (09:15)
[2023-11-09] MEDS: FUROSEMIDE 40 MG TABLET PO (09:15)
[2023-11-09] MEDS: LISINOPRIL 5MG TABLET 5 MG PO (09:15)
[2023-11-09] MEDS: DOCUSATE SODIUM 100 MG CAPSULE PO (09:15)
[2023-11-09] MEDS: PANTOPRAZOLE 40MG TABLET 40 MG PO (09:15)
[2023-11-09] MEDS: ENOXAPARIN 40MG/0.4ML SYRINGE 40 MG SQ (09:16)
[2023-11-09] MEDS: humaLOG MIX 75/25 3ML FLEXPEN 60 UNIT SQ (09:22)
[2023-11-09 09:31] LABS: POC Glucose,Bedside 149 (70-110)
[2023-11-09 09:54] LABS: Hemoglobin 11.9 g/dL (14.1-18.0)
[2023-11-09] MEDS: humaLOG 100 UNITS/ML 3ML VIAL (SSI) SQ (11:45)
[2023-11-09 11:54] LABS: POC Glucose,Bedside 176 (70-110)
--- NOTE | 2023-11-12 15:39 | CARE MANAGER ---
Unable to reach patient via phone to discuss recent discharge. Call attempted x 2 with no VM option available.
== END 2023-11-09 13:24 | disposition home or self-care (01) ==
LOC: ER 02:22 → 2ND 02:58
PROVIDERS: Admitting Provider Nurse Practitioner Family; Emergency Provider Emergency Medicine; PCP Internal Medicine; Visit Provider Internal Medicine
DX: K52.9 Noninfective gastroenteritis and colitis, unspecified; R16.1 Splenomegaly, not elsewhere classified; J44.9 Chronic obstructive pulmonary disease, unspecified; I25.10 Atherosclerotic heart disease of native coronary artery without angina pectoris; Z95.1 Presence of aortocoronary bypass graft; I10 Essential (primary) hypertension; E78.2 Mixed hyperlipidemia; E11.40 Type 2 diabetes mellitus with diabetic neuropathy, unspecified; Z79.4 Long term (current) use of insulin; R10.9 Unspecified abdominal pain; Z79.899 Other long term (current) drug therapy
CPT/HCPCS: 36415; 74177; 80053; 81001; 82009; 82803; 82962; 83605; 83690; 83735; 85007; 85025; 87040; 87506; 93005; 99285; G0378; J2405; J2543; Q9967

== ENCOUNTER 2023-12-18 22:26 | Emergency (ER) | payer MEDICARE, MEDICAID, SELFPAY ==
[2023-12-18 22:27] VITALS: BP 143/77; PULSE 91; RESP 16; TEMP 36.9; O2SAT 100; BMI 25.4
--- NOTE | 2023-12-18 22:40 | ED_ITS ---
Discharge Plan Disposition Patient Disposition: Home, Self-Care Prescriptions Prescriptions: New ondansetron HCl 4 mg tablet 4 mg PO Q8H PRN (Reason: nausea and vomiting) 5 Days Qty: 30 0RF oseltamivir [Tamiflu] 75 mg capsule 75 mg PO BID 5 Days Qty: 10 0RF No Action hydrocodone-acetaminophen 10-325 mg tablet 1 tab PO Q6HP PRN (Reason: Moderate Pain (Scale Score 5-6)) (DME) lancets [FreeStyle Lancets] 28 gauge misc See Rx Instructions .ROUTE .MEDSUPPLY Qty: 100 Rx Instructions: As directed tadalafil [Cialis] 20 mg tablet 20 mg PO DAILY PRN (Reason: sexual activity) Qty: 10 5RF Rx Instructions: administer approximately 30min before sexual activity; do not use more than 1 dose per 24hrs (DME) pen needle, diabetic [Easy Comfort Pen [place]] 31 gauge x 3/16 needle See Rx Instructions .ROUTE .MEDSUPPLY Qty: 50 Rx Instructions: As directed Ozempic 0.25 mg or 0.5 mg (2 mg/3 mL) pen injector 0.25 mg SQ WEEKLY Qty: 3 2RF Rx Instructions: for 4 weeks (DME) blood-glucose meter [OneTouch Ultra2 Meter] Misc See Rx Instructions .Route Qty: 1 0RF Rx Instructions: As directed (DME) OneTouch Ultra Test Strip See Rx Instructions .Route Qty: 100 2RF Rx Instructions: As directed (DME) lancets [OneTouch UltraSoft 2 Lancet] 30 gauge misc See Rx Instructions .Route Qty: 100 2RF Rx Instructions: As directed metformin 1,000 mg tablet 1,000 mg PO BID 30 Days Qty: 60 2RF insulin lispro protamin-lispro [Humalog Mix 75-25 KwikPen] 100 unit/mL (75-25) insulin pen 60 unit SQ BID Qty: 30 5RF loratadine [Claritin] 10 mg tablet 10 mg PO DAILY ipratropium bromide 0.02 % solution 2.5 ml inhalation Q12H gabapentin 800 mg tablet 800 mg PO QID benzonatate 100 mg capsule 100 mg PO TIDP PRN (Reason: Cough) Qty: 30 0RF atorvastatin 20 mg tablet 20 mg PO HS furosemide 40 mg tablet 40 mg PO DAILY omeprazole 20 mg capsule,delayed release(DR/EC) 20 mg PO BID lisinopril 5 mg tablet 5 mg PO DAILY albuterol sulfate 90 mcg/actuation HFA aerosol inhaler 2 inh inhalation Q6HP PRN (Reason: shortness of breath or wheezing) [place] Saline 0.65 % aerosol,spray 2 spray intranasal QIDP PRN (Reason: dry nasal passages) metoprolol tartrate 25 mg tablet 25 mg PO BID Referrals Follow up/Referrals: Silvio Mccain MD [Primary Care Provider] - See instructions Activity Restrictions/Add. Instructions Additional Instructions/Restrictions: Please follow-up with your primary care provider. Please return to the emergency department if you develop any new or worsening symptoms or become concerned for your health. Please take Zofran as needed for nausea and vomiting. Please take Tamiflu for treatment of the flu. Clinical Impressions Clinical Impression: Influenza A, Vomiting Instructions Patient Instructions: DI for Acute Abdominal Pain Discharge ED Provider: Hussain Bennett General Adult HPI <Hussain Bennett MD - Last Filed: 12/18/23 22:59> General Chief complaint: Abdominal Pain Stated complaint: abd pain vomiting cough Time Seen by Provider: 12/18/23 22:33 History of Present Illness HPI narrative: This patient is a 68-year-old male with a history of CAD status post CABG, type 2 diabetes, diabetic foot wound, hypertension, hyperlipidemia, liver disease from previous alcohol use, and pancreatitis presenting with epigastric pain and vomiting. Patient states that he has numerous sick contacts with vomiting and diarrhea. He started having symptoms just prior to arrival at 8 PM. Vomiting is nonbloody, nonbilious. Associated with diffuse, cramping abdominal pain that feels like a toothache, but does not radiate. No fevers or chills, urinary symptoms, last bowel movement was about an hour prior to arrival and was normal for him. Related Data Home Medications Medication Instructions Recorded Confirmed hydrocodone 10 mg-acetaminophen 1 tab PO Q6HP PRN Moderate Pain 11/27/21 12/14/23 325 mg tablet (Scale Score 5-6) lancets 28 gauge (FreeStyle #100 ea 04/01/22 12/14/23 Lancets) pen needle, diabetic 31 gauge x #50 ea 08/20/22 12/14/2301/15 (Easy Comfort Pen [place]) gabapentin 800 mg tablet 800 mg PO QID Pain 07/02/23 12/14/23 ipratropium bromide 0.02 % 2.5 ml inhalation Q12H Breathing 07/02/23 12/14/23 solution for inhalation Problems loratadine 10 mg tablet (Claritin) 10 mg PO DAILY Allergy Symptoms 07/02/23 12/14/23 albuterol sulfate 90 mcg/actuation 2 inh inhalation Q6HP PRN 11/08/23 12/14/23 aerosol inhaler shortness of breath or wheezing atorvastatin 20 mg tablet 20 mg PO HS Cholesterol 11/08/23 12/14/23 furosemide 40 mg tablet 40 mg PO DAILY Fluid 11/08/23 12/14/23 lisinopril 5 mg tablet 5 mg PO DAILY High Blood Pressure 11/08/23 12/14/23 metoprolol tartrate 25 mg tablet 25 mg PO BID High Blood Pressure 11/08/23 12/14/23 omeprazole 20 mg capsule,delayed 20 mg PO BID Acid Reflux 11/08/23 12/14/23 release sodium chloride 0.65 % nasal spray 2 spray intranasal QIDP PRN dry 11/08/23 12/14/23 aerosol ([place] Saline) nasal passages Previous Rx's Medication Instructions Recorded tadalafil 20 mg tablet (Cialis) 20 mg PO DAILY PRN sexual activity 12/15/22 #10 tabs benzonatate 100 mg capsule 100 mg PO TIDP PRN Cough #30 caps 11/05/23 semaglutide 0.25 mg or 0.5 mg (2 0.25 mg (0.368 mL) SQ WEEKLY #3 mL 11/17/23 mg/3 mL) subcutaneous pen injector ([email or web address]) blood sugar diagnostic (OneTouch #100 ea 11/18/23 Ultra Test strips) blood-glucose meter (OneTouch #1 ea 11/18/23 Ultra2 Meter) lancets 30 gauge (OneTouch #100 ea 11/18/23 UltraSoft 2 Lancet) metformin 1,000 mg tablet 1,000 mg PO BID Diabetes 30 days 11/27/23 #60 tabs insulin lispro protamine-lispro 60 unit (0.6 mL) SQ BID Diabetes 12/04/23 100 unit/mL (75-25) subcutaneous #30 mL pen (Humalog Mix 75-25 KwikPen) ondansetron HCl 4 mg tablet 4 mg PO Q8H PRN nausea and 12/18/23 vomiting 5 days #30 tabs oseltamivir 75 mg capsule (Tamiflu) 75 mg PO BID 5 days #10 caps 12/18/23 Allergies Allergy/AdvReac Type Severity Reaction Status Date / Time No Known Allergies Allergy Verified 12/14/23 08:34 [facility] <Hussain Bennett MD - Last Filed: 12/18/23 22:59> [facility] Disclaimer: The information contained in this section may have been updated after the patient was seen, as this information can be updated by other users. Medical History Abnormal electrocardiogram [ECG] [EKG] Acute bronchitis Acute sinusitis Amputation of one or more toes Amputation of toe of left foot Bruising CAD, multiple vessel Callus Callus of foot Carpal tunnel syndrome of right wrist Cellulitis Cellulitis and abscess of foot Cellulitis of left foot Cellulitis of right foot Cerumen impaction Cervical paraspinous muscle spasm Chronic sinusitis Colitis COPD (chronic obstructive pulmonary disease) Deviated nasal septum Diabetes mellitus Diabetes mellitus with diabetic neuropathy, with long-term current use of insulin Diabetic foot Diabetic foot Diabetic foot infection Diabetic infection of right foot Diabetic ulcer of left foot Diabetic ulcer of right foot Diabetic ulcer of toe of right foot associated with type 2 diabetes mellitus, limited to breakdown of skin Diastasis recti Dyspnea Edema Encounter for wound care Equinus contracture of left ankle Erectile dysfunction Foot abscess, right Foot osteomyelitis, right Gangrene of toe of left foot Gas gangrene of foot Hammertoes of both feet History of diabetes mellitus, type II History of hyperlipidemia History of hypertension Hyperlipidemia Hypertension IDDM (insulin dependent diabetes mellitus) Incurvated nail Infected surgical wound Left foot pain Left shoulder pain Muscle strain Nail dystrophy Neck Pain Non-STEMI (non-ST elevated myocardial infarction) Onychomycosis Other acute osteomyelitis, right ankle and foot Otitis externa Overweight (BMI 25.0-29.9) Pain in right shoulder Pain of right upper arm Pharyngitis Pre-ulcerative calluses Psoriasis Rib pain on right side Sepsis Severe sepsis with acute organ dysfunction Shoulder pain, bilateral Sinus mucosal thickening Sinusitis Splenomegaly Sunburn TMJ arthralgia Type 2 diabetes mellitus with diabetic polyneuropathy, with long-term current use of insulin VRE (vancomycin resistant enterococcus) culture positive Surgical History History of amputation of right great toe History of amputation of toe History of amputation of toe History of nasal septoplasty Hx of cataract surgery S/P CABG x 6 Status post foot surgery Family History Mother Heart attack Social History Smoking Status: Former smoker tobacco type: cigarettes packs per day: 3 years smoked: 25 smoking status stop date: 11/02/2001 how long ago did patient quit smokin second hand exposure: Yes alcohol intake: former substance use type: denies use current occupational status: disabled Travel in the last 8 weeks: None household members: none housing: apartment caffeine: Yes <Hussain Bennett MD - Last Filed: 12/18/23 22:59> ROS Obtained: Yes All systems reviewed & no additional complaints except as documented Physical Exam <Hussain Bennett MD - Last Filed: 12/18/23 22:59> General General appearance: alert and in no apparent distress Head Head exam: atraumatic and normocephalic Eye Eye exam: Present normal appearance, PERRL and EOMI ENT ENT exam: Present mucous membranes moist Neck Neck exam: Present normal inspection, full ROM and trachea midline Respiratory Respiratory exam: Absent respiratory distress, wheezes, stridor, accessory [place] use or prolonged expiratory phase Cardiovascular Cardiovascular exam: Present normal rhythm Abdominal Exam Abdominal exam: Present soft; Absent distention, tenderness, guarding, rebound or rigidity Extremities Exam Extremities exam: Absent edema Neurological Exam Neurological exam: Present alert, oriented X3, CN II-XII intact and normal gait; Absent motor sensory deficit Skin Skin exam: Present warm and dry; Absent diaphoresis or erythema Medical Decision Making <Hussain Bennett MD - Last Filed: 12/18/23 22:59> Medical Records Medical records reviewed: Yes I reviewed the patient's medical records. Jose Inquiry Pt receiving controlled substance: No Jose was queried for this patient: No Vital Signs: 12/18/23 22:27 12/18/23 23:29 Temperature 98.4 F 98.7 F Temperature Source Oral Oral Pulse Rate 90 Pulse Rate [Radial] 91 H Respiratory Rate 16 18 Blood Pressure 130/64 Blood Pressure [Left Arm] 143/77 H Blood Pressure Mean [Left Arm] 99 Blood Pressure Source Automatic Cuff Blood Pressure Source [Left Arm] Automatic Cuff Blood Pressure Position [Left Arm] Sitting 02 Sat by Pulse Oximetry 100 Oxygen Delivery Method Room Air Room Air Lab Data Lab Results 12/18/23 22:47: WBC 6.7, RBC 4.27 L, Hgb 11.7 L, Hct 35.2 L, MCV 82.5, MCH 27.5, MCHC 33.3, RDW 15.7, Plt Count 105 L, MPV 10.4, Neut % (Auto) 85.8 H, Lymph % (Auto) 7.0 L, [place] % (Auto) 5.8, Eos % (Auto) 1.2, Baso % (Auto) 0.2, Neut # (Auto) 5.8, Lymph # (Auto) 0.5 L, [place] # (Auto) 0.4, Eos # (Auto) 0.1, Baso # (Auto) 0.0, Total Counted 100, Neutrophils % (Manual) 84 H, Lymphocytes % (Manual) 8 L, Monocytes % (Manual) 7, Eosinophils % (Manual) 1, Platelet Estimate Slight decrease, Hypochromasia 1+, Microcytosis 1+, Sodium 138, Potassium 4.4, Chloride 105, Carbon Dioxide 29, Anion Gap 8.4, BUN 18, Creatinine 0.90, Estimated Creat Clear 77, Estimated GFR 84, Est GFR ( Amer) 101, Glucose 224 H, Lactate 1.8, Calcium 8.5, Total Bilirubin 0.8, AST 76 H, ALT 85 H, Alkaline Phosphatase 175 H, Troponin I < 0.01, Total Protein 7.6, Albumin 3.9, Globulin 3.7 H, Albumin/Globulin Ratio 1.1, Lipase 223 12/18/23 22:49: SARS-CoV-2 (PCR) Not detected, Influenza A Untype (PCR) Detected A, Influenza Type B (PCR) Not detected 12/18/23 22:47 12/18/23 22:47 Orders (Tests/Meds): ED MEDICATIONS Discontinued Medications Generic Name Dose Route Start Last Admin Trade Name Freq PRN Reason Stop Dose Admin Aspirin 324 mg 12/18/23 22:39 12/18/23 22:53 Aspirin 81mg Chewable Tablet PO 12/18/23 22:40 324 mg ONCE ONE Administration Belladonna Alkaloids 60 ml 12/18/23 22:39 12/18/23 22:53 [place] Alkaloids 60 Ml Ml PO 12/18/23 22:40 60 ml ONCE ONE Administration Ondansetron HCl 4 mg 12/18/23 22:40 12/18/23 22:53 Ondansetron 4mg/2ml Vial IV 12/18/23 22:41 4 mg ONCE ONE Administration ORDERS Category Date Time Status CBC w/Auto Diff [Complete Blood Count Auto Diff] Stat Lab 12/18/23 22:47 Completed CMP [Comprehensive Metabolic Panel] Stat Lab 12/18/23 22:47 Completed Lactic Acid Stat Lab 12/18/23 22:47 Completed Lipase Stat Lab 12/18/23 22:47 Completed Rapid PCR Covid and Flu A/B Stat Lab 12/18/23 22:49 Completed Trop I [Troponin I] Stat Lab 12/18/23 22:47 Completed Troponin I Q3H Lab 12/19/23 01:45 Ordered Troponin I Q3H Lab 12/19/23 04:45 Ordered UA [Urinalysis and Microscopic] Stat Lab 12/18/23 22:38 Ordered Medical Decision Narrative: This patient is a 68-year-old male with a history of CAD status post CABG, type 2 diabetes, diabetic foot wound, hypertension, hyperlipidemia, liver disease from previous alcohol use, and pancreatitis presenting with epigastric pain and vomiting. Patient states that he has numerous sick contacts with vomiting and diarrhea. He started having symptoms just prior to arrival at 8 PM. Vomiting is nonbloody, nonbilious. Associated with diffuse, cramping abdominal pain that feels like a toothache, but does not radiate. No fevers or chills, urinary symptoms, last bowel movement was about an hour prior to arrival and was normal for him. History was obtained via conversation with patient. On arrival, patient hemodynamically stable, alert, oriented x4, appropriate, GCS 15, moving all extremities spontaneously, pupils equal and reactive to light. Full physical exam performed and significant for well-appearing male no acute distress. Abdomen soft, nontender, nondistended. Ventral hernia which is redu cible. Normotensive, nontachycardic. Differential includes PUD, gastritis, enteritis, gastroenteritis, pancreatitis, SBO, colitis, diverticulitis, nephrolithiasis, UTI, aortic pathology, mesenteric ischemia, cholecystitis, appendicitis, hepatitis, among others. Patient was given 25 mg aspirin, GI cocktail, Zofran for symptomatic management and correction of underlying abnormalities. Imaging and labs pending at time of handoff to oncoming physician. <Randall Linda MD - Last Filed: 12/18/23 23:37> Vital Signs: 12/18/23 22:27 12/18/23 23:29 Temperature 98.4 F 98.7 F Temperature Source Oral Oral Pulse Rate 90 Pulse Rate [Radial] 91 H Respiratory Rate 16 18 Blood Pressure 130/64 Blood Pressure [Left Arm] 143/77 H Blood Pressure Mean [Left Arm] 99 Blood Pressure Source Automatic Cuff Blood Pressure Source [Left Arm] Automatic Cuff Blood Pressure Position [Left Arm] Sitting 02 Sat by Pulse Oximetry 100 Oxygen Delivery Method Room Air Room Air Lab Data Lab Results 12/18/23 22:47: WBC 6.7, RBC 4.27 L, Hgb 11.7 L, Hct 35.2 L, MCV 82.5, MCH 27.5, MCHC 33.3, RDW 15.7, Plt Count 105 L, MPV 10.4, Neut % (Auto) 85.8 H, Lymph % (Auto) 7.0 L, [place] % (Auto) 5.8, Eos % (Auto) 1.2, Baso % (Auto) 0.2, Neut # (Auto) 5.8, Lymph # (Auto) 0.5 L, [place] # (Auto) 0.4, Eos # (Auto) 0.1, Baso # (Auto) 0.0, Total Counted 100, Neutrophils % (Manual) 84 H, Lymphocytes % (Manual) 8 L, Monocytes % (Manual) 7, Eosinophils % (Manual) 1, Platelet Estimate Slight decrease, Hypochromasia 1+, Microcytosis 1+, Sodium 138, Potassium 4.4, Chloride 105, Carbon Dioxide 29, Anion Gap 8.4, BUN 18, Creatinine 0.90, Estimated Creat Clear 77, Estimated GFR 84, Est GFR ( Amer) 101, Glucose 224 H, Lactate 1.8, Calcium 8.5, Total Bilirubin 0.8, AST 76 H, ALT 85 H, Alkaline Phosphatase 175 H, Troponin I < 0.01, Total Protein 7.6, Albumin 3.9, Globulin 3.7 H, Albumin/Globulin Ratio 1.1, Lipase 223 12/18/23 22:49: SARS-CoV-2 (PCR) Not detected, Influenza A Untype (PCR) Detected A, Influenza Type B (PCR) Not detected Orders (Tests/Meds): ED MEDICATIONS Discontinued Medications Generic Name Dose Route Start Last Admin Trade Name Ryanq PRN Reason Stop Dose Admin Aspirin 324 mg 12/18/23 22:39 12/18/23 22:53 Aspirin 81mg Chewable Tablet PO 12/18/23 22:40 324 mg ONCE ONE Administration Belladonna Alkaloids 60 ml 12/18/23 22:39 12/18/23 22:53 [place] Alkaloids 60 Ml Ml PO 12/18/23 22:40 60 ml ONCE ONE Administration Ondansetron HCl 4 mg 12/18/23 22:40 12/18/23 22:53 Ondansetron 4mg/2ml Vial IV 12/18/23 22:41 4 mg ONCE ONE Administration ORDERS Category Date Time Status CBC w/Auto Diff [Complete Blood Count Auto Diff] Stat Lab 12/18/23 22:47 Completed CMP [Comprehensive Metabolic Panel] Stat Lab 12/18/23 22:47 Completed Lactic Acid Stat Lab 12/18/23 22:47 Completed Lipase Stat Lab 12/18/23 22:47 Completed Rapid PCR Covid and Flu A/B Stat Lab 12/18/23 22:49 Completed Trop I [Troponin I] Stat Lab 12/18/23 22:47 Completed Troponin I Q3H Lab 12/19/23 01:45 Ordered Troponin I Q3H Lab 12/19/23 04:45 Ordered UA [Urinalysis and Microscopic] Stat Lab 12/18/23 22:38 Ordered Medical Decision Narrative: This patient is a 68-year-old male with a history of CAD status post CABG, type 2 diabetes, diabetic foot wound, hypertension, hyperlipidemia, liver disease from previous alcohol use, and pancreatitis presenting with epigastric pain and vomiting. Patient states that he has numerous sick contacts with vomiting and diarrhea. He started having symptoms just prior to arrival at 8 PM. Vomiting is nonbloody, nonbilious. Associated with diffuse, cramping abdominal pain that feels like a toothache, but does not radiate. No fevers or chills, urinary symptoms, last bowel movement was about an hour prior to arrival and was normal for him. History was obtained via conversation with patient. On arrival, patient hemodynamically stable, alert, oriented x4, appropriate, GCS 15, moving all extremities spontaneously, pupils equal and reactive to light. Full physical exam performed and significant for well-appearing male no acute distress. Abdomen soft, nontender, nondistended. Ventral hernia which is reducible. Normotensive, nontachycardic. Differential includes PUD, gastritis, enteritis, gastroenteritis, pancreatitis, SBO, colitis, diverticulitis, nephrolithiasis, UTI, aortic pathology, mesenteric ischemia, cholecystitis, appendicitis, hepatitis, among others. Patient was given 25 mg aspirin, GI cocktail, Zofran for symptomatic management and correction of underlying abnormalities. Imaging and labs pending at time of handoff to oncoming physician. Alexei PANDYA: I assumed care of the patient at the time of handoff from the prior provider. On reassessment patient reports complete symptomatic resolution after GI cocktail and Zofran. On my interpretation of patient's labs, no evidence of pancreatitis, chronically elevated LFTs noted, no significant loose leukocytosis. Patient's swab returned positive for influenza A which explains h is symptoms. I had an interactive discussion with patient regarding his presentation. Given his comorbidities, I think he would benefit from Tamiflu for treatment of flu. I prescribed Zofran and Tamiflu. Return precautions given. Critical Care <Hussain Bennett MD - Last Filed: 12/18/23 22:59> Critical Care Time Critical Care Time: No
[2023-12-18] MEDS: ASPIRIN 81MG CHEWABLE TABLET 324 MG PO (22:53)
[2023-12-18] MEDS: BELLADONNA ALKALOIDS 60 ML ML PO (22:53)
[2023-12-18] MEDS: ONDANSETRON 4MG/2ML VIAL 4 MG IV (22:53)
[2023-12-18 22:57] LABS: Coronavirus 19, PCR Not Detected (NotDetected); Influenza B, PCR Not Detected (NotDetected)
[2023-12-18 23:00] LABS: Basophils % 0.2 % (0.1-2.0); Eosinophils # 0.1 K/mm3 (0.0-0.4); Eosinophils % 1.2 % (0.1-12.0); Hematocrit 35.2 % (42.0-52.0); Hemoglobin 11.7 g/dL (14.1-18.0); Lymphocytes # 0.5 K/mm3 (0.7-4.5); Mean Corpuscular HGB Conc 33.3 g/dL (31.8-35.4); Mean Corpuscular Hemoglobin 27.5 pg (27.0-31.2); Mean Corpuscular Volume 82.5 fl (80-94); Mean Platelet Volume 10.4 fl (7.4-10.4); Monocytes # 0.4 K/mm3 (0.1-1.0); Monocytes % 5.8 % (1.7-9.3); Neutrophils # 5.8 K/mm3 (1.8-7.8); Neutrophils % 85.8 % (37.0-80.0); Platelet Count 105 K/mm3 (142-424); Red Blood Count 4.27 M/mm3 (4.60-6.20); Red Cell Distribution Width 15.7 % (11.5-17.5); White Blood Count 6.7 K/mm3 (4.8-10.8)
[2023-12-18 23:01] LABS: MANUAL DIFFERENTIAL MANUAL DIFFERENTIAL (MANUAL DIFF)
[2023-12-18 23:02] LABS: Chloride 105 mmol/L (98-107)
[2023-12-18 23:03] LABS: Potassium 4.4 mmoL/L (3.5-5.1); Sodium 138 mmol/L (136-145)
[2023-12-18 23:05] LABS: Alanine Aminotransferase 85 U/L (12-78); Aspartate Amino Transferase 76 U/L (17-59); Blood Urea Nitrogen 18 mg/dl (9-20); Creatinine Clearance Estimated 77 mL/min (50-200); Estimated Glomerular Filt Rate 84 ml/min (>60); GFR (African American) 101 ML/MIN (>60)
[2023-12-18 23:06] LABS: Albumin Level 3.9 g/dl (3.5-5.0); Albumin/Globulin Ratio 1.1 (1.1-1.8); Alkaline Phosphatase 175 U/L (38-126); Anion Gap 8.4 mEq/L (5-15); Bilirubin,Total 0.8 mg/dl (0.2-1.3); Calcium 8.5 mg/dl (8.4-10.2); Carbon Dioxide 29 mmol/L (22.0-30.0); Globulin 3.7 g/dL (1.3-3.2); Glucose 224 mg/dl (74-100); Lipase 223 U/L (23-300); Total Protein,Serum 7.6 g/dl (6.3-8.2)
[2023-12-18 23:07] LABS: Lactic Acid 1.8 mmol/L (0.7-2.1)
[2023-12-18 23:18] LABS: Troponin I < 0.01 ng/ml (0.00-0.034)
[2023-12-18 23:20] LABS: Influenza A, PCR Detected (NotDetected)
[2023-12-18 23:23] LABS: Eosinophils % 1 % (0-3); Hypochromasia 1+; Lymphocytes % 8 % (10-50); Microcytosis 1+; Monocytes % 7 % (2-9); Neutrophils % 84 % (42-76); Platelet Estimate Slight Decrease; Total Cells Counted 100
[2023-12-18 23:29] VITALS: BP 130/64; PULSE 90; RESP 18; TEMP 37.1; O2SAT 94
[2023-12-18 23:37] LABS: Microscopic, Urine URINE MICROSCOPIC (MICROSCOPIC)
[2023-12-18 23:38] LABS: Appearance,Urine CLEAR (Clear); Bilirubin,Urine Negative (Negative); Blood, Urine Negative (Negative); Color,Urine YELLOW (Yellow); Glucose,Urine (UA) 3+ (Negative); Ketones,Urine Negative (Negative); Leukocyte Esterase,Urine Negative (Negative); Nitrate,Urine Negative (Negative); Protein,Urine TRACE (Negative); Specific Gravity, Urine >= 1.030 (1.005-1.030); Urobilinogen,Urine 0.2 EU/dl (0.2)
[2023-12-18 23:57] LABS: Bacteria,Urine Trace /lpf; Squamous Epithelial Cell,Urine Occasional #/hpf (0-5); WBC,Urine Occasional #/hpf (0-3)
== END 2023-12-18 23:40 | disposition home or self-care (01) ==
PROVIDERS: Emergency Provider Emergency Medicine; PCP Family Medicine
DX: J10.1 Influenza due to other identified influenza virus with other respiratory manifestations (principal); R10.13 Epigastric pain; R11.2 Nausea with vomiting, unspecified; E11.65 Type 2 diabetes mellitus with hyperglycemia; I11.9 Hypertensive heart disease without heart failure; I25.10 Atherosclerotic heart disease of native coronary artery without angina pectoris; E78.5 Hyperlipidemia, unspecified; J44.9 Chronic obstructive pulmonary disease, unspecified; Z95.1 Presence of aortocoronary bypass graft; Z79.4 Long term (current) use of insulin; Z79.84 Long term (current) use of oral hypoglycemic drugs; Z79.85 Long-term (current) use of injectable non-insulin antidiabetic drugs; Z87.891 Personal history of nicotine dependence
CPT/HCPCS: 80053; 81001; 83605; 83690; 84484; 85007; 85025; 87636; 96374; 99284; J2405

== ENCOUNTER 2023-12-24 10:59 | Day surgery (SDC) | payer MEDICARE, MEDICAID, SELFPAY ==
[2023-12-24 11:25] VITALS: BMI 25.2
[2023-12-24 11:26] VITALS: BP 151/64; PULSE 79; RESP 17; TEMP 36.3; O2SAT 97
[2023-12-24 11:28] LABS: POC Glucose,Bedside 88 (70-110)
[2023-12-24 13:00] VITALS: BP 128/68; PULSE 82; RESP 18; TEMP 36.6; O2SAT 96
--- NOTE | 2023-12-24 13:03 | EXP.OP.NOTE ---
Date of procedure: 12/24/23 Pre-op Diagnosis:: B/L diabetic foot ulcer History of right TMA History of right 1-3rd toe amputations Post-op Diagnosis:: Same Procedure performed:: B/l foot wound debridement Application of skin graft substitute Surgeon:: Kaitlin Corado DPM Anesthesia: none Estimated blood loss (mL): 5 Clinical Note:: Patient is a 68-year-old diabetic male with history of right transmetatarsal amputation and left first second and third digital amputations. He has a history of diabetic ulcers. Patient has failed conservative treatment, including multiple debridements, various wound dressings, off-loading, immobilization. The recent x-rays are negative for underlying bone infection. Any prior skin/soft tissue infection resolved with oral antibiotics. We discussed surgery. All risks and benefits were discussed including but not limited to: damage to blood vessels and nerves, bleeding, infection, wound complications, need for further surgery, implant/graft failure, need for removal of implant/graft, allergic reaction, prolonged or permanent swelling of the extremity, prolonged or permanent pain or deformity, CRPS/RSD, DVT/PE, and anesthetic complications including . Patient understands if wound/graft gets infected, it could lead to prolonged oral or IV antibiotics or increased risk of osteomyelitis, which could lead to possible loss of digits, partial foot or even BKA. No guarantees were given. All questions fully answered. The patient verbalized understanding and agreed to proceed with surgery. Consent was obtained. Operative findings:: Bilateral subfirst metatarsal diabetic foot ulcers noted. Mild medhat wound maceration noted to right foot ulcer. Sharp excisional debridement with curette and 15 blade full-thickness: no new drainage or signs of infection. Bleeding noted. Left sub 1st met: thru skin, subq, 100% granular, 0.4 x 0.2 x 0.2 cm. Right sub 1st met: thru skin, subq, into deep fascia 100% granular, 1.5 x 1.2 x 0.3cm. Operative note:: On this date and time patient was deemed an appropriate surgical candidate. With informed consent signed, the patient was taken to the local procedure operating theater room. The patient was positioned supine. No anesthesia was induced. No tourniquet used. Both the left and right lower extremities were prepped and draped in normal sterile fashion. Left foot wound debridement: Ulcer noted to the plantar first metatarsal measuring preoperatively 0.3 x 0.2cm. The wound base was fibrotic. The wound probed centrally, with an area that tracted 0.2 cm into subcutaneous tissue. Sharp excisional full-thickness debridement with 15 blade, curette, forceps down to/including subcutaneous tissue. No deep fascia or bone exposed. The skin edges were debrided with 15' blade, some bleeding noted. Right foot wound debridement: Ulcer noted to the plantar first metatarsal measuring preoperatively 1.3 x 1.1cm. The wound base was granular and fibrotic. The wound probed centrally, with an area that tracted 0.3 cm into deep fascia. Sharp excisional full-thickness debridement with 15 blade, curette, forceps down through skin, subcutaneous tissue to the level of deep fascia. No exposed posed bone. The skin edges were debrided with 15' blade, some bleeding noted. Both wounds were flushed with gentamicin irrigation. Skin cleansed with saline. Mastisol applied around the wound edges. Bilateral foot application of Apligraf ([employer] wound graft): Graft was prepared in standard fashion. Graft was cut and one graft was utilized for both the wounds. The entire graft was utilized. The graft was placed over the two open areas and secured with Steri-Strips. Adaptic was applied over the grafts followed by dry sterile dressing to both feet. The patient tolerated the procedure well, without complications. Materials: Organogenesis Aligraf wound graft x1 Discharge/Plan: Ok to discharge home when ready and vss. Patient is to maintain dressing clean dry and intact. Elevate on two pillows. Partial weight bearing to the right lower extremity in fracture boot with walker. FWB to left foot in DM shoes. Follow up for staged surgery on Wedn 12/30/23: Bilateral wound debridement, application of wound graft, possible delayed primary closure. Condition: stable Disposition: same day Complications:: None
[2023-12-24] MEDS: cefTRIAXone 1GM VIAL 1 GM IM (13:05)
== END 2023-12-24 13:15 | disposition home or self-care (01) ==
PROVIDERS: PCP Family Medicine; Visit Provider Podiatrist
PROC: (CPT 11042; principal; 2023-12-24 12:15)
DX: E11.621 Type 2 diabetes mellitus with foot ulcer (principal); L97.512 Non-pressure chronic ulcer of other part of right foot with fat layer exposed; L97.522 Non-pressure chronic ulcer of other part of left foot with fat layer exposed; Z79.4 Long term (current) use of insulin; Z79.899 Other long term (current) drug therapy; M20.42 Other hammer toe(s) (acquired), left foot; M20.41 Other hammer toe(s) (acquired), right foot; E11.40 Type 2 diabetes mellitus with diabetic neuropathy, unspecified
CPT/HCPCS: 11042; 15275; 82962; J0696; Q4101

== ENCOUNTER 2023-12-30 05:45 | Day surgery (SDC) | payer MEDICARE, MEDICAID, SELFPAY ==
[2023-12-30 06:26] VITALS: BP 138/58; PULSE 73; RESP 18; TEMP 36.1; O2SAT 99; BMI 25.2
[2023-12-30 06:39] LABS: POC Glucose,Bedside 330 (70-110)
[2023-12-30 08:12] VITALS: BP 142/72; PULSE 81; RESP 16; TEMP 36.3; O2SAT 98
--- NOTE | 2023-12-30 08:18 | P.OP_ITS ---
Date of procedure: 12/30/23 Pre-op Diagnosis:: B/L diabetic foot ulcer History of right TMA History of right 1-3rd toe amputations Post-op Diagnosis:: Same Procedure performed:: B/l foot wound debridement Application of skin graft substitute Left foot ulcer excision with delayed primary closure Surgeon:: Kaitlin Corado DPM Anesthesia: none Estimated blood loss (mL): 5 Clinical Note:: Patient is a 68-year-old diabetic male with history of right transmetatarsal amputation and left first second and third digital amputations. He has a history of diabetic ulcers. This is a planned staged wound debridement and graft application for the DFUs. Patient has failed conservative treatment, in cluding multiple debridements, various wound dressings, off-loading, immobilization. The recent x-rays are negative for underlying bone infection. Any prior skin/soft tissue infection resolved with oral antibiotics. We discussed surgery. All risks and benefits were discussed including but not limited to: damage to blood vessels and nerves, bleeding, infection, wound complications, need for further surgery, implant/graft failure, need for removal of implant/graft, allergic reaction, prolonged or permanent swelling of the extremity, prolonged or permanent pain or deformity, CRPS/RSD, DVT/PE, and anesthetic complications including . Patient understands if wound/graft gets infected, it could lead to prolonged oral or IV antibiotics or increased risk of osteomyelitis, which could lead to possible loss of digits, partial foot or even BKA. No guarantees were given. All questions fully answered. The patient verbalized understanding and agreed to proceed with surgery. Consent was obtained. Operative findings:: Bilateral subfirst metatarsal diabetic foot ulcers noted. Minimal medhat wound maceration noted to right foot ulcer. Callus over left foot ulcer. Overall wound looks smaller and healthier. Sharp excisional debridement with curette and 15 blade full-thickness: no new drainage or signs of infection. Bleeding noted. Left sub 1st met: thru skin, subq, 100% granular, 0.3 x 0.1 x 0.2 cm. Medhat wound/ulcer fibrotic skin was excised post debridement. Skin edges were able to be reapproximated. The wound was then closed with nylon. Right sub 1st met: thru skin, subq: 100% granular, 1.3 x 1.1 x 0.2cm. Operative note:: On this date and time patient was deemed an appropriate surgical candidate. With informed consent signed, the patient was taken to the local procedure operating theater room. The patient was positioned supine. No anesthesia was induced. No tourniquet used. Both the left and right lower extremities were prepped and draped in normal sterile fashion. Left foot wound debridement: Ulcer noted to the plantar first metatarsal measuring preoperatively 0.2 x 0.2cm with medhat wound callus. The wound base was fibrotic. Sharp excisional full-thickness debridement with 15 blade, curette, forceps down to/including subcutaneous tissue. No deep fascia or bone exposed. The skin edges were fibrotic. Skin edges and ulcer excised full thickness with 15' blade, some bleeding noted. Left foot ulcer excision with delayed primary closure: The skin edges were fibrotic. Skin edges and ulcer excised full thickness with 15' blade, some bleeding noted. Wound flushed with gentamicin irrigation. Skin edges were able to be reapproximated. The wound was then closed with nylon. No wound opening remaining after skin closure. Right foot wound debridement: Ulcer noted to the plantar first metatarsal measuring preoperatively 1.1 x 1.0cm. The wound base was granular with minimal fibrotic tissue. Sharp excisional full-thickness debridement with 15 blade, curette, forceps down through skin, subcutaneous tissue. Wound no longer extended to deep fascia. No exposed posed bone. The skin edges were debrided with 15' blade, some bleeding noted. Wound flushed with gentamicin irrigation. Skin cleansed with saline. Mastisol applied around the wound edges. Bilateral foot application of Apligraf (Organogenesis wound graft): Graft was prepared in standard fashion. Graft was cut and one graft was utilized for both the feet. The entire graft was utilized. The graft was placed over the right foot open wound and over the left foot sutures/excised ulcer site and secured with Steri-Strips. Adaptic was applied over the grafts followed by dry sterile dressing to both feet. The patient tolerated the procedure well, without complications. Materials: Organogenesis Aligraf wound graft x1 Discharge/Plan: Ok to discharge home when ready and vss. Patient is to maintain dressing clean dry and intact. Elevate on two pillows. Partial weight bearing to the right lower extremity in fracture boot with walker. FWB to left foot in DM shoes. Follow up for staged surgery on Wedn 01/06/24: Bilateral wound debridement, application of wound graft, possible delayed primary closure. Condition: stable Disposition: same day Complications:: None
[2023-12-30] MEDS: cefTRIAXone 1GM VIAL 1 GM IM (08:19)
== END 2023-12-30 08:35 | disposition home or self-care (01) ==
PROVIDERS: PCP Family Medicine; Visit Provider Podiatrist
PROC: (CPT 11042; principal; 2023-12-30 07:30)
DX: E11.621 Type 2 diabetes mellitus with foot ulcer (principal); L97.511 Non-pressure chronic ulcer of other part of right foot limited to breakdown of skin; L97.521 Non-pressure chronic ulcer of other part of left foot limited to breakdown of skin; E11.40 Type 2 diabetes mellitus with diabetic neuropathy, unspecified; Z79.4 Long term (current) use of insulin; Z79.899 Other long term (current) drug therapy
CPT/HCPCS: 11042; 15275; 82962; J0696; Q4101

== ENCOUNTER 2024-01-06 06:59 | Day surgery (SDC) | payer MEDICARE, MEDICAID, SELFPAY ==
[2024-01-06 07:51] VITALS: BP 163/75; PULSE 79; RESP 17; TEMP 36.2; O2SAT 98
--- NOTE | 2024-01-06 07:58 | P.OP_ITS ---
Date of procedure: 01/06/24 Pre-op Diagnosis:: B/L diabetic foot ulcer History of right TMA History of right 1-3rd toe amputations Post-op Diagnosis:: Same Procedure performed:: B/l foot wound debridement Application of skin graft substitute Surgeon:: Kaitlin Corado DPM Anesthesia: none Estimated blood loss (mL): 5 Clinical Note:: Patient is a 68-year-old diabetic male with history of right transmetatarsal amputation and left first second and third digital amputations. He has a history of diabetic ulcers. This is a planned staged wound debridement and graft application for the DFUs. Patient has failed conservative treatment, including multiple debridements, various wound dressings, off-loading, immobilization. The recent x-rays are negative for underlying bone infection. Any prior skin/soft tissue infection resolved with oral antibiotics. We discussed surgery. All risks and benefits were discussed including but not limited to: damage to blood vessels and nerves, bleeding, infection, wound complications, need for further surgery, implant/graft failure, need for removal of implant/graft, allergic reaction, prolonged or permanent swelling of the extremity, prolonged or permanent pain or deformity, CRPS/RSD, DVT/PE, and anesthetic complications including . Patient understands if wound/graft gets infected, it could lead to prolonged oral or IV antibiotics or increased risk of osteomyelitis, which could lead to possible loss of digits, partial foot or even BKA. No guarantees were given. All questions fully answered. The patient verbalized understanding and agreed to proceed with surgery. Consent was obtained. Operative findings:: Bilateral subfirst metatarsal diabetic foot ulcers noted. Minimal medhat wound maceration noted to right foot ulcer. Minimal callus over left foot ulcer. Sutures intact to left sub 1st metatarsal. Overall wound looks smaller and healthier. Sharp excisional debridement with curette and 15 blade full- thickness: no new drainage or signs of infection. Bleeding noted. Left sub 1st met: thru skin, subq: 100% granular, 0.2 x 0.1 x 0.1 cm. Right sub 1st met: thru skin, subq: 100% granular, 0.8 x 0.7 x 0.2cm. No new signs of infection. Operative note:: On this date and time patient was deemed an appropriate surgical candidate. With informed consent signed, the patient was taken to the local procedure operating theater room. The patient was positioned supine. No anesthesia was induced. No tourniquet used. Both the left and right lower extremities were prepped and draped in normal sterile fashion. Left foot wound debridement: Sutures intact to the wound site. Ulcer noted to the plantar first metatarsal measuring preoperatively 0.2 x 0.2cm. The wound base was granular. Sharp excisional full-thickness debridement with 15 blade, curette, forceps down to/including subcutaneous tissue. No deep fascia or bone exposed. Wound flushed with gentamicin irrigation. Right foot wound debridement: Ulcer noted to the plantar first metatarsal measuring preoperatively 1.0 x 0.9cm. The wound base was granular with minimal fibrotic tissue. Sharp excisional full-thickness debridement with 15 blade, curette, forceps down through skin, subcutaneous tissue. Wound no longer extended to deep fascia. No exposed posed bone. The skin edges were debrided with 15' blade, some bleeding noted. Wound flushed with gentamicin irrigation. Skin cleansed with saline. Mastisol applied around the wound edges. Bilateral foot application of Apligraf (Organogenesis wound graft): Graft was prepared in standard fashion. Graft was cut and one graft was utilized for both the feet. The entire graft was utilized. The graft was placed over the right foot open wound and over the left foot sutures/ulcer site and secured with Steri-Strips. Adaptic was applied over the grafts followed by dry sterile dressing to both feet. The patient tolerated the procedure well, without complications. Materials: Organogenesis Aligraf wound graft x1 Discharge/Plan: Ok to discharge home when ready and vss. Patient is to maintain dressing clean dry and intact. Elevate on two pillows. Partial weight bearing to the right lower extremity in fracture boot with wal ker. FWB to left foot in DM shoes. Follow up for staged surgery on Wedn 01/13/24: Bilateral wound debridement, application of wound graft. Condition: stable Disposition: same day Complications:: None
[2024-01-06] MEDS: cefTRIAXone 1GM VIAL 1 GM IM (07:59)
[2024-01-06 08:10] VITALS: BP 163/75; PULSE 79; RESP 17; O2SAT 98
[2024-01-06 08:11] VITALS: BP 144/98; PULSE 77; RESP 18; TEMP 36.3; O2SAT 99; BMI 25.4
== END 2024-01-06 08:10 | disposition home or self-care (01) ==
PROVIDERS: PCP Family Medicine; Visit Provider Podiatrist
PROC: (CPT 11042; principal; 2024-01-06 07:30)
DX: E11.621 Type 2 diabetes mellitus with foot ulcer (principal); L97.511 Non-pressure chronic ulcer of other part of right foot limited to breakdown of skin; L97.521 Non-pressure chronic ulcer of other part of left foot limited to breakdown of skin; E11.40 Type 2 diabetes mellitus with diabetic neuropathy, unspecified; Z79.4 Long term (current) use of insulin; Z79.899 Other long term (current) drug therapy
CPT/HCPCS: 11042; 15275; J0696; Q4101

== ENCOUNTER 2024-01-13 06:16 | Day surgery (SDC) | payer MEDICARE, MEDICAID, SELFPAY ==
[2024-01-13 06:31] VITALS: BP 151/64; PULSE 72; RESP 18; TEMP 36.2; O2SAT 98; BMI 25.4
[2024-01-13] MEDS: GENTAMICIN 80 MG/2 ML VIAL (07:40)
--- NOTE | 2024-01-13 08:03 | P.OP_ITS ---
Date of procedure: 01/13/24 Pre-op Diagnosis:: B/L diabetic foot ulcer History of right TMA History of right 1-3rd toe amputations Post-op Diagnosis:: Same Procedure performed:: B/l foot wound debridement Application of skin graft substitute Suture removal x2 (left foot) Surgeon:: Kaitlin Corado DPM Anesthesia: none Estimated blood loss (mL): 2 Clinical Note:: Patient is a 68-year-old diabetic male with history of right transmetatarsal amputation and left first second and third digital amputations. He has a history of diabetic ulcers. This is a planned staged wound debridement and graft application for the DFUs. Patient has failed conservative treatment, including multiple debridements, various wound dressings, off-loading, immobilization. The recent x-rays are negative for underlying bone infection. Any prior skin/soft tissue infection resolved with oral antibiotics. We discu ssed surgery. All risks and benefits were discussed including but not limited to: damage to blood vessels and nerves, bleeding, infection, wound complications, need for further surgery, implant/graft failure, need for removal of implant/graft, allergic reaction, prolonged or permanent swelling of the extremity, prolonged or permanent pain or deformity, CRPS/RSD, DVT/PE, and anesthetic complications including . Patient understands if wound/graft gets infected, it could lead to prolonged oral or IV antibiotics or increased risk of osteomyelitis, which could lead to possible loss of digits, partial foot or even BKA. No guarantees were given. All questions fully answered. The patient verbalized understanding and agreed to proceed with surgery. Consent was obtained. Operative findings:: Bilateral subfirst metatarsal diabetic foot ulcers noted. Minimal medhat wound maceration noted to right foot ulcer. Some callus over left foot ulcer. Sutures intact to left sub 1st metatarsal. Sutures removed. Overall wound looks smaller and healthier. Sharp excisional debridement with 15 blade and forceps full- thickness: no new drainage or signs of infection. Bleeding noted. Left sub 1st met: thru skin, subq: 100% granular, 0.3 x 0.1 x 0.1 cm. Right sub 1st met: thru skin, subq: 100% granular, 0.6 x 0.5 x 0.2cm. No new signs of infection. Operative note:: On this date and time patient was deemed an appropriate surgical candidate. With informed consent signed, the patient was taken to the local procedure operating theater room. The patient was positioned supine. No anesthesia was induced. No tourniquet used. Both the left and right lower extremities were prepped and draped in normal sterile fashion. Left foot wound debridement: Sutures intact to the wound site. Ulcer appeared healed preoperatively. Sutures removed and callus and ulcer debrided. Sharp excisional full-thickness debridement with 15 blade and forceps down to/including subcutaneous tissue. No deep fascia or bone exposed. Wound flushed with gentamicin irrigation. Right foot wound debridement: Ulcer noted to the plantar first metatarsal measuring preoperatively 0.5 x 0.5cm. The wound base was granular with minimal fibrotic tissue. Sharp excisional full-thickness debridement with 15 blade and forceps down through skin, subcutaneous tissue. Wound no longer extended to deep fascia. No exposed posed bone. The skin edges were debrided with 15' blade, some bleeding noted. Wound flushed with gentamicin irrigation. Skin cleansed with saline. Mastisol applied around the wound edges. Application of Apligraf (Organogenesis wound graft): Graft was prepared in standard fashion. Graft was cut and one graft was utilized for both the feet. The entire graft was utilized. The graft was placed over the right foot open wound and over the left foot ulcer sites and secured with Steri-Strips. Adaptic was applied over the grafts followed by dry sterile dressing to both feet. The patient tolerated the procedure well, without complications. Materials: Organogenesis Aligraf wound graft x1 Discharge/Plan: Ok to discharge home when ready and vss. Patient is to maintain dressing clean dry and intact. Elevate on two pillows. Partial weight bearing to the right lower extremity in fracture boot with walker. FWB to left foot in DM shoes. Discussed possibility of another wound debridement and graft application. Follow up in office for re-evaluation. Condition: stable Disposition: same day Complications:: None
[2024-01-13 08:11] VITALS: BP 109/55; PULSE 71; RESP 18; TEMP 36.7; O2SAT 99
[2024-01-13 08:18] VITALS: BP 106/55; PULSE 71; RESP 18; O2SAT 99
[2024-01-13 12:31] LABS: POC Glucose,Bedside 126 (70-110)
== END 2024-01-13 08:12 | disposition home or self-care (01) ==
PROVIDERS: PCP Family Medicine; Visit Provider Podiatrist
PROC: (CPT 11042; principal; 2024-01-13 07:30)
DX: E11.621 Type 2 diabetes mellitus with foot ulcer (principal); L97.511 Non-pressure chronic ulcer of other part of right foot limited to breakdown of skin; L97.521 Non-pressure chronic ulcer of other part of left foot limited to breakdown of skin; Z79.4 Long term (current) use of insulin; Z79.899 Other long term (current) drug therapy; E11.40 Type 2 diabetes mellitus with diabetic neuropathy, unspecified
CPT/HCPCS: 11042; 15275; 82962; Q4101

== ENCOUNTER 2024-01-20 07:09 | Day surgery (SDC) | payer MEDICARE, MEDICAID, SELFPAY ==
[2024-01-19 13:17] VITALS: BMI 25.4
--- NOTE | 2024-01-20 07:16 | CA_ITS ---
FINAL REPORT TECHNIQUE: Graded compression, spectral analysis and ultrasound images of the venous system of the upper extremity were obtained. CLINICAL HISTORY: LEFT ARM PAIN AND EDEMA,NKI FINDINGS: The jugular vein, subclavian vein, axillary vein, brachial vein, cephalic vein and basilic venous system are fully compressible and demonstrate no evidence of thrombosis. IMPRESSION: No evidence of thrombosis of the venous system of the left upper extremity. Reviewed, Interpreted and Dictated by Horacio Solomon III, MD Transcribed by Adelaide Fernandez Authenticated and [facility]
[2024-01-20 08:30] VITALS: BP 154/80; PULSE 70; RESP 16; TEMP 36.3; O2SAT 99
[2024-01-20 08:44] LABS: MANUAL DIFFERENTIAL MANUAL DIFFERENTIAL (MANUAL DIFF)
[2024-01-20 08:45] LABS: POC Glucose,Bedside 244 (70-110)
[2024-01-20 08:47] LABS: Basophils % 0.5 % (0.1-2.0); Eosinophils # 0.1 K/mm3 (0.0-0.4); Eosinophils % 1.5 % (0.1-12.0); Hematocrit 38.6 % (42.0-52.0); Hemoglobin 12.3 g/dL (14.1-18.0); Lymphocytes # 0.7 K/mm3 (0.7-4.5); Mean Corpuscular HGB Conc 31.7 g/dL (31.8-35.4); Mean Corpuscular Hemoglobin 27.1 pg (27.0-31.2); Mean Corpuscular Volume 85.4 fl (80-94); Mean Platelet Volume 10.6 fl (7.4-10.4); Monocytes # 0.3 K/mm3 (0.1-1.0); Monocytes % 6.7 % (1.7-9.3); Neutrophils # 3.1 K/mm3 (1.8-7.8); Neutrophils % 74.4 % (37.0-80.0); Platelet Count 116 K/mm3 (142-424); Red Blood Count 4.52 M/mm3 (4.60-6.20); Red Cell Distribution Width 15.5 % (11.5-17.5); White Blood Count 4.2 K/mm3 (4.8-10.8)
[2024-01-20 09:04] LABS: Albumin Level 4.1 g/dl (3.5-5.0); Albumin/Globulin Ratio 1.1 (1.1-1.8); Anion Gap 12.5 mEq/L (5-15); Blood Urea Nitrogen 20 mg/dl (9-20); Calcium 9.2 mg/dl (8.4-10.2); Carbon Dioxide 26 mmol/L (22.0-30.0); Chloride 105 mmol/L (98-107); Creatinine Clearance Estimated 79 mL/min (50-200); Estimated Glomerular Filt Rate 84 ml/min (>60); GFR (African American) 101 ML/MIN (>60); Globulin 3.6 g/dL (1.3-3.2); Glucose 249 mg/dl (74-100); Potassium 4.5 mmoL/L (3.5-5.1); Sodium 139 mmol/L (136-145); Total Protein,Serum 7.7 g/dl (6.3-8.2)
[2024-01-20 09:09] LABS: Alkaline Phosphatase 119 U/L (38-126); Bilirubin,Total 0.5 mg/dl (0.2-1.3); C-Reactive Protein 4.6 mg/L (0-4)
[2024-01-20] MEDS: GENTAMICIN 80 MG/2 ML VIAL (09:15)
[2024-01-20 09:17] LABS: Alanine Aminotransferase 77 U/L (12-78); Aspartate Amino Transferase 74 U/L (17-59)
--- NOTE | 2024-01-20 09:34 | P.OP_ITS ---
Date of procedure: 01/20/24 Pre-op Diagnosis:: B/L diabetic foot ulcer History of right TMA History of left 1-3rd toe amputations Post-op Diagnosis:: Same Procedure performed:: B/l foot wound debridement Application of skin graft substitute (Organogenesis Aligraf) Surgeon:: Kaitlin Corado DPM Anesthesia: none Estimated blood loss (mL): 1 Clinical Note:: Patient is a 68-year-old diabetic male with history of right transmetatarsal amputation and left first second and third digital amputations. He has a history of diabetic ulcers. This is a planned staged wound debridement and graft application for the DFUs. Patient has failed conservative treatment, including multiple debridements, various wound dressings, off-loading, immobilization. The recent x-rays are negative for underlying bone infection. Any prior skin/soft tissue infection resolved with oral antibiotics. We discussed surgery. All risks and benefits were discussed including but not limited to: damage to blood vessels and nerves, bleeding, infection, wound complications, need for further surgery, implant/graft failure, need for removal of implant/graft, allergic reaction, prolonged or permanent swelling of the extremity, prolonged or permanent pain or deformity, CRPS/RSD, DVT/PE, and anesthetic complications including . Patient understands if wound/graft gets infected, it could lead to prolonged oral or IV antibiotics or increased risk of osteomyelitis, which could lead to possible loss of digits, partial foot or even BKA. No guarantees were given. All questions fully answered. The patient verbalized understanding and agreed to proceed with surgery. Consent was obtained. *Insurance approved Apligraf x5 graft applications. This was planned graft application #5. Operative findings:: Bilateral subfirst metatarsal diabetic foot ulcers noted. No medhat wound maceration noted to right foot ulcer. Some callus over left foot ulcer. Overall wound looks smaller and healthier. Sharp excisional debridement with 15 blade and forceps full-thickness: no new drainage or signs of infection. Bleeding noted. Left sub 1st met: thru skin, subq: 100% granular, 0.2 x 0.1 x 0.1 cm. Right sub 1st met: thru skin, subq: 100% granular, 0.5 x 0.4 x 0.2cm. No new signs of infection. Operative note:: On this date and time patient was deemed an appropriate surgical candidate. With informed consent signed, the patient was taken to the local procedure operating theater room. The patient was positioned supine. No anesthesia was induced. No tourniquet used. Both the left and right lower extremities were prepped and dr aped in normal sterile fashion. Left foot wound debridement: Ulcer appeared healed preoperatively. Callus and ulcer debrided. Sharp excisional full-thickness debridement with 15 blade and forceps down to/including subcutaneous tissue. No deep fascia or bone exposed. Wound flushed with gentamicin irrigation. Right foot wound debridement: Ulcer noted to the plantar first metatarsal measuring preoperatively graft partially incorporated. The wound base was granular with no fibrotic tissue. Sharp excisional full-thickness debridement with 15 blade and forceps down through skin, subcutaneous tissue. Wound no longer extended to deep fascia. No exposed bone. The skin edges were debrided with 15' blade, some bleeding noted. Wound flushed with gentamicin irrigation. Skin cleansed with saline. Mastisol applied around the wound edges. Application of Apligraf (Organogenesis wound graft): Graft was prepared in standard fashion. Graft was cut and one graft was utilized for both the feet. The entire graft was utilized. The graft was placed over the right foot open wound and over the left foot ulcer sites and secured with Steri-Strips. Adaptic was applied over the grafts followed by dry sterile dressing to both feet. The patient tolerated the procedure well, without complications. Materials: Organogenesis Aligraf wound graft x1 Discharge/Plan: Ok to discharge home when ready and vss. Patient is to maintain dressing clean dry and intact. Elevate on two pillows. Partial weight bearing to the right lower extremity in fracture boot with walker. FWB to left foot in DM shoes. Follow up in office for re-evaluation next week. Condition: stable Disposition: same day Complications:: None
[2024-01-20] MEDS: cefTRIAXone 1GM VIAL 1 GM IM (09:40)
[2024-01-20 09:41] VITALS: BP 158/79; PULSE 71; RESP 18; TEMP 36.2; O2SAT 100
[2024-01-20 10:04] LABS: Erythrocyte Sedimentation Rate 24 mm/hr (0-20)
[2024-01-20 10:30] LABS: Lymphocytes % 18 % (10-50); Monocytes % 8 % (2-9); Neutrophils % 74 % (42-76); Platelet Estimate Slight Decrease; RBC Morphology Normal; Total Cells Counted 100
[2024-01-20 14:21] LABS: Hemoglobin A1C 10.5 % (4.0-6.0)
== END 2024-01-20 09:45 | disposition home or self-care (01) ==
PROVIDERS: PCP Family Medicine; Visit Provider Podiatrist
PROC: (CPT 11042; principal; 2024-01-20 09:00)
DX: E11.621 Type 2 diabetes mellitus with foot ulcer (principal); L97.511 Non-pressure chronic ulcer of other part of right foot limited to breakdown of skin; L97.521 Non-pressure chronic ulcer of other part of left foot limited to breakdown of skin; E11.40 Type 2 diabetes mellitus with diabetic neuropathy, unspecified; Z79.4 Long term (current) use of insulin; Z79.899 Other long term (current) drug therapy; M79.602 Pain in left arm
CPT/HCPCS: 11042; 15275; 80053; 82962; 83036; 85007; 85014; 85018; 85048; 85049; 85651; 86140; 93971; J0696; Q4101

== ENCOUNTER 2024-02-09 12:38 | Outpatient (CLI) | payer MEDICARE, SELFPAY ==
--- NOTE | 2024-02-09 12:48 | XR_ITS ---
FINAL REPORT CLINICAL HISTORY: lt upper arm fx FINDINGS: Left humerus Four views were obtained. There is no acute fracture or dislocation. The joint spaces appear normal. No soft tissue abnormality is identified. IMPRESSION: No acute process. Reviewed, Interpreted and Dictated by Horacio Solomon III, MD Transcribed by Adelaide Fernandez Authenticated and [facility]
== END 2024-02-09 23:59 ==
LOC: RAD 12:39
PROVIDERS: PCP Family Medicine; Visit Provider Orthopaedic Surgery
DX: M79.622 Pain in left upper arm (principal)
CPT/HCPCS: 73060

== ENCOUNTER 2024-02-29 05:51 | Emergency (ER) | payer MEDICARE, SELFPAY ==
[2024-02-29 05:52] VITALS: BP 165/88; PULSE 75; RESP 12; TEMP 36.6; O2SAT 100; BMI 25.1
[2024-02-29 05:54] VITALS: BP 165/88; PULSE 81; O2SAT 100
[2024-02-29 06:00] VITALS: BP 173/83; PULSE 81; O2SAT 98
--- NOTE | 2024-02-29 06:04 | ECG_ITS ---
APPROVED REPORT Exam: Resting ECG HR:74 bpm ECG Measurements Heart Rate 74 AXES SD 191 P -15 QRSd 98 QRS 81 QT 378 T 24 QTc 405 Conclusion SINUS RHYTHM ABNORMAL ECG Electronically signed by : ESTER THOMAS, 02/29/2024 11:44:01
--- NOTE | 2024-02-29 06:16 | XR_ITS ---
PROCEDURE INFORMATION: Exam: XR Chest Exam date and time: 02/29/2024 6:11 AM Age: 68 years old Clinical indication: Cough; Additional info: Cough, SOB, congestion TECHNIQUE: Imaging protocol: Radiologic exam of the chest. Views: 2 views. COMPARISON: CR XR CHEST 2V 03/11/2023 12:18 AM FINDINGS: Lungs: Unremarkable. No consolidation. Pleural spaces: Unremarkable. No pleural effusion. No pneumothorax. Heart/Mediastinum: Unremarkable. No cardiomegaly. Bones/joints: Unremarkable. IMPRESSION: No acute findings.
--- NOTE | 2024-02-29 06:17 | HMH.EDGENADL ---
Discharge Plan Disposition Patient Disposition: Home, Self-Care Prescriptions Prescriptions: No Action (DME) lancets [FreeStyle Lancets] 28 gauge misc See Rx Instructions .ROUTE .MEDSUPPLY Qty: 100 Rx Instructions: As directed tadalafil [Cialis] 20 mg tablet 20 mg PO DAILY PRN (Reason: sexual activity) Qty: 10 5RF Rx Instructions: administer approximately 30min before sexual activity; do not use more than 1 dose per 24hrs (DME) pen needle, diabetic [Easy Comfort Pen [place]] 31 gauge x 3/16 needle See Rx Instructions .ROUTE .MEDSUPPLY Qty: 50 Rx Instructions: As directed hydrocodone-acetaminophen 10-325 mg tablet PO [place] Saline 0.65 % aerosol,spray 2 spray intranasal QIDP PRN (Reason: dry nasal passages) Qty: 50 0RF Ozempic 0.25 mg or 0.5 mg (2 mg/3 mL) pen injector 0.25 mg SQ WEEKLY Qty: 3 2RF Rx Instructions: for 4 weeks diclofenac sodium [Voltaren Arthritis Pain] 1 % gel 2 g topical QID Qty: 100 3RF Rx Instructions: apply to single elbow, wrist or hand; for hand includes palm/fingers/back of hand (DME) blood-glucose meter [OneTouch Ultra2 Meter] Misc See Rx Instructions .Route Qty: 1 0RF Rx Instructions: As directed (DME) OneTouch Ultra Test Strip See Rx Instructions .Route Qty: 100 2RF Rx Instructions: As directed (DME) lancets [OneTouch UltraSoft 2 Lancet] 30 gauge misc See Rx Instructions .Route Qty: 100 2RF Rx Instructions: As directed metformin 1,000 mg tablet 1,000 mg PO BID 30 Days Qty: 60 2RF insulin lispro protamin-lispro [Humalog Mix 75-25 KwikPen] 100 unit/mL (75-25) insulin pen 60 unit SQ BID Qty: 30 5RF metoprolol tartrate 25 mg tablet See Rx Instructions .ROUTE .COMPLEX Qty: 60 1RF Dose Instruction: TAKE 1 TABLET BY MOUTH TWICE DAILY FOR BLOOD PRESSURE Rx Instructions: TAKE 1 TABLET BY MOUTH TWICE DAILY FOR BLOOD PRESSURE diclofenac sodium 50 mg tablet,delayed release (DR/EC) 50 mg PO Q12H PRN (Reason: pain) Qty: 90 3RF potassium chloride 20 mEq tablet extended release 20 meq PO DAILY Qty: 30 2RF omeprazole 20 mg capsule,delayed release(DR/EC) See Rx Instructions .ROUTE .COMPLEX Qty: 180 0RF Dose Instruction: TAKE 1 CAPSULE BY MOUTH TWICE A DAY FOR GERD FOR 90 DAYS Rx Instructions: TAKE 1 CAPSULE BY MOUTH TWICE A DAY FOR GERD FOR 90 DAYS loratadine [Claritin] 10 mg tablet 10 mg PO DAILY ipratropium bromide 0.02 % solution 2.5 ml inhalation Q12H gabapentin 800 mg tablet 800 mg PO QID atorvastatin 20 mg tablet 20 mg PO HS furosemide 40 mg tablet 40 mg PO DAILY lisinopril 5 mg tablet 5 mg PO DAILY albuterol sulfate 90 mcg/actuation HFA aerosol inhaler 2 inh inhalation Q6HP PRN (Reason: shortness of breath or wheezing) Referrals Follow up/Referrals: Silvio Mccain MD [Primary Care Provider] - See instructions Activity Restrictions/Add. Instructions Additional Instructions/Restrictions: Please follow-up with your primary care provider. Please return to the emergency department if you develop any new or worsening symptoms or become concerned for your health. Clinical Impressions Clinical Impression: Cough, Breathlessness, Head congestion Discharge ED Provider: Randall Linda General Adult HPI General Chief complaint: Shortness of Breath/Dyspnea Stated complaint: SOA Time Seen by Provider: 02/29/24 05:58 Mode of Arrival: Ambulatory Source of Information: Patient Limitations: No Limitations Description of Symptoms (Recalled from ER Triage Doc. by RN): Pt states he nahed up arounf 3 am and felt like he couldn't get in a good breath. Pt states this has not happened before. Pt did take 4 ASA before coming to ER. Pt is A&O*4 at this time. History of Present Illness HPI narrative: 68-year-old male with history of coronary artery disease status post CABG in 1998, diabetes, hypertension, hyperlipidemia presents with shortness of breath. Patient reports that he has had sinus pressure and congestion for the last few days and feels like it is traveling down. He woke up this morning and felt like he was having difficulty taking in a deep breath. He reports no chest pain. He reports that he feels better now than earlier. He denies any history of COPD, reports he quit smoking when he had his heart attack many years ago. Related Data Home Medications Medication Instructions Recorded Confirmed lancets 28 gauge (FreeStyle #100 ea 04/01/22 02/09/24 Lancets) pen needle, diabetic 31 gauge x #50 ea 08/20/22 02/09/2401/15 (Easy Comfort Pen [place]) gabapentin 800 mg tablet 800 mg PO QID Pain 07/02/23 02/09/24 ipratropium bromide 0.02 % 2.5 ml inhalation Q12H Breathing 07/02/23 02/09/24 solution for inhalation Problems loratadine 10 mg tablet (Claritin) 10 mg PO DAILY Allergy Symptoms 07/02/23 02/09/24 albuterol sulfate 90 mcg/actuation 2 inh inhalation Q6HP PRN 11/08/23 02/09/24 aerosol inhaler shortness of breath or wheezing atorvastatin 20 mg tablet 20 mg PO HS Cholesterol 11/08/23 02/09/24 furosemide 40 mg tablet 40 mg PO DAILY Fluid 11/08/23 02/09/24 lisinopril 5 mg tablet 5 mg PO DAILY High Blood Pressure 11/08/23 02/09/24 hydrocodone 10 mg-acetaminophen tab PO 02/08/24 02/09/24 325 mg tablet Previous Rx's Medication Instructions Recorded tadalafil 20 mg tablet (Cialis) 20 mg PO DAILY PRN sexual activity 12/15/22 #10 tabs semaglutide 0.25 mg or 0.5 mg (2 0.25 mg (0.368 mL) SQ WEEKLY #3 mL 11/17/23 mg/3 mL) subcutaneous pen injector (Ozempic) blood sugar diagnostic (OneTouch #100 ea 11/18/23 Ultra Test strips) blood-glucose meter (OneTouch #1 ea 11/18/23 Ultra2 Meter) lancets 30 gauge (OneTouch #100 ea 11/18/23 UltraSoft 2 Lancet) metformin 1,000 mg tablet 1,000 mg PO BID Diabetes 30 days 11/27/23 #60 tabs insulin lispro protamine-lispro 60 unit (0.6 mL) SQ BID Diabetes 12/04/23 100 unit/mL (75-25) subcutaneous #30 mL pen (Humalog Mix 75-25 KwikPen) diclofenac sodium 50 mg 50 mg PO Q12H PRN pain #90 tabs 01/11/24 tablet,delayed release metoprolol tartrate 25 mg tablet See Rx Instructions .Route 01/11/24 .COMPLEX #60 tabs potassium chloride 20 mEq 20 meq PO DAILY #30 tabs 01/11/24 tablet,extended release sodium chloride 0.65 % nasal spray 2 spray intranasal QIDP PRN dry 02/08/24 aerosol ([place] Saline) nasal passages #50 mL diclofenac sodium 1 % topical gel 2 g topical QID #100 grams 02/09/24 (Voltaren Arthritis Pain) omeprazole 20 mg capsule,delayed See Rx Instructions .Route 02/09/24 release .COMPLEX #180 caps Allergies Allergy/AdvReac Type Severity Reaction Status Date / Time No Known Allergies Allergy Verified 02/09/24 13:27 [facility] Disclaimer: The information contained in this section may have been updated after the patient was seen, as this information can be updated by other users. Medical History Sinusitis Splenomegaly Sepsis Colitis Left shoulder pain Edema Abnormal electrocardiogram [ECG] [EKG] Sinus mucosal thickening Diastasis recti Sunburn Deviated nasal septum Chronic sinusitis Incurvated nail COPD (chronic obstructive pulmonary disease) Shoulder pain, bilateral TMJ arthralgia Cervical paraspinous muscle spasm Pharyngitis Acute bronchitis Otitis externa Cerumen impaction Acute sinusitis Erectile dysfunction Diabetic foot Callus of foot Muscle strain Rib pain on right side Bruising Pain of right upper arm Pain in right shoulder Neck Pain Callus Psoriasis History of diabetes mellitus, type II History of hyperlipidemia History of hypertension Cellulitis of left foot Carpal tunnel syndrome of right wrist Cellulitis VRE (vancomycin resistant enterococcus) culture positive Gas gangrene of foot Foot abscess, right Severe sepsis with acute organ dysfunction Cellulitis of right foot Diabetic ulcer of left foot Diabetic foot Type 2 diabetes mellitus with diabetic polyneuropathy, with long-term current use of insulin Amputation of toe of left foot Other acute osteomyelitis, right ankle and foot Diabetic ulcer of toe of right foot associated with type 2 diabetes mellitus, limited to breakdown of skin Diabetes mellitus Foot osteomyelitis, right Pre-ulcerative calluses Diabetic infection of right foot Diabetic ulcer of right foot Encounter for wound care Onychomycosis Nail dystrophy Overweight (BMI 25.0-29.9) Left foot pain Hammertoes of both feet Diabetes mellitus with diabetic neuropathy, with long-term current use of insulin Amputation of one or more toes Equinus contracture of left ankle Gangrene of toe of left foot Diabetic foot infection Cellulitis and abscess of foot Infected surgical wound Dyspnea CAD, multiple vessel Hyperlipidemia Hypertension IDDM (insulin dependent diabetes mellitus) Non-STEMI (non-ST elevated myocardial infarction) Surgical History Status post nasal septoplasty History of nasal septoplasty History of amputation of toe History of amputation of toe Hx of cataract surgery Status post foot surgery History of amputation of right great toe S/P CABG x 6 Family History Mother Heart attack Social History Smoking Status: Former smoker tobacco type: cigarettes packs per day: 3 years smoked: 25 smoking status stop date: 11/02/2001 how long ago did patient quit smokin second hand exposure: Yes alcohol intake: former substance use type: denies use current occupational status: disabled Travel in the last 8 weeks: None household members: none housing: apartment caffeine: Yes ROS Obtained: Yes All systems reviewed & no additional complaints except as documented Physical Exam General General appearance: alert and in no apparent distress Head Head exam: atraumatic and normocephalic Eye Eye exam: Present normal appearance, PERRL and EOMI ENT ENT exam: Present normal oropharynx, normal external ear exam and other (Nasal congestion) Neck Neck exam: Present normal inspection and full ROM Chest Chest inspection: Present normal inspection and symmetric chest wall rise; Absent tenderness Respiratory Respiratory exam: Present normal lung sounds bilaterally; Absent respiratory distress Cardiovascular Cardiovascular exam: Present regular rate and normal rhythm Abdominal Exam Abdominal exam: Present soft; Absent distention, tenderness or guarding Extremities Exam Extremities exam: Present normal inspection; Absent edema or joint swelling Back Exam Back exam: Present normal inspection; Absent tenderness Neurological Exam Neurological exam: Present alert and oriented X3; Absent motor sensory deficit Psychiatric Psychiatric exam: Present normal affect and normal mood Skin Skin exam: Present warm, dry and normal color Lymphatic Lymphatic Findings: no adenopathy Medical Decision Making Medical Records Medical records reviewed: Yes I reviewed the patient's medical records. Jose Inquiry Pt receiving controlled substance: No Jose was queried for this patient: No Vital Signs: 02/29/24 05:52 02/29/24 05:54 02/29/24 06:00 Temperature 97.8 F Temperature Source Oral Pulse Rate 81 81 Pulse Rate [Left] 75 Respiratory Rate 12 Blood Pressure 165/88 H 173/83 H Blood Pressure [Right Arm] 165/88 H Blood Pressure Mean 132 144 Blood Pressure Mean [Right Arm] 113 02 Sat by Pulse Oximetry 100 100 98 Oxygen Delivery Method Room Air 02/29/24 06:30 Temperature Temperature Source Pulse Rate 70 Pulse Rate [Left] Respiratory Rate Blood Pressure 158/74 H Blood Pressure [Right Arm] Blood Pressure Mean 128 Blood Pressure Mean [Right Arm] 02 Sat by Pulse Oximetry 97 Oxygen Delivery Method Lab Data Lab results reviewed: Yes I reviewed the patient's lab results. Lab Results 02/29/24 05:52: WBC 3.9 L, RBC 4.55 L, Hgb 11.9 L, Hct 36.7 L, MCV 80.8, MCH 26.2 L, MCHC 32.4, RDW 16.2, Plt Count 109 L, MPV 9.4, Neut % (Auto) 66.7, Lymph % (Auto) 24.2, [place] % (Auto) 6.3, Eos % (Auto) 2.1, Baso % (Auto) 0.8, Neut # (Auto) 2.6, Lymph # (Auto) 0.9, [place] # (Auto) 0.3, Eos # (Auto) 0.1, Baso # (Auto) 0.0, Sodium 143, Potassium 4.4, Chloride 107, Carbon Dioxide 27, Anion Gap 13.4, BUN 15, Creatinine 0.90, Estimated Creat Clear 76, Estimated GFR 84, Est GFR ( Amer) 101, Glucose 173 H, Calcium 9.5, Total Bilirubin 0.6, AST 64 H, ALT 54, Alkaline Phosphatase 155 H, Troponin I 0.01, Total Protein 7.5, Albumin 3.9, Globulin 3.6 H, Albumin/Globulin Ratio 1.1 02/29/24 05:52 02/29/24 05:52 Orders (Tests/Meds): ORDERS Category Date Time Status CXR 2 view (NOT portable) [XR chest 2V] Stat Exams 02/29/24 06:16 Completed CBC w/Auto Diff [Complete Blood Count Auto Diff] Stat Lab 02/29/24 05:52 Completed CMP [Comprehensive Metabolic Panel] Stat Lab 02/29/24 05:52 Completed Troponin I Q3H Lab 02/29/24 05:52 Completed Troponin I Q3H Lab 02/29/24 09:15 Ordered ECG Data Tracing #1: I reviewed this ECG and interpreted as documented below: Sinus rhythm, rate of 74, isolated Q-wave in lead III, no concerning ST changes ECG initial impression date: 02/29/24 ECG initial impression time: 06:06 HEART Score History (anamnesis): Slightly suspicious ECG: Non-specific disturbance Age: >65 years Risk factors: Atherosclerosis history Troponin: </= normal limit HEART Score: 5 Medical Decision Narrative: 68-year-old male with history as documented above who presents with shortness of breath starting this morning, reports he has nasal congestion that he feels like is moving down. Denies any chest pain, reports cough.. History was obtained interactive discussion with patient, chart review. On arrival, patient is [afebrile, hemodynamically stable, satting appropriately, alert, oriented x4, GCS 15], moving all extremities spontaneously. Full physical exam performed and significant for clear lungs bilaterally Differential includes but is not limited to COVID, flu, pneumonia, URI, ACS. Patient took full dose aspirin prior to arrival.. Workup initiated including CBC CMP, chest x-ray troponin. Given duration of symptoms, lack of chest pain and lack of ischemic changes on EKG, my concern for ACS is extremely low. A single negative troponin should suffice in this scenario. On re-evaluation, patient [remains afebrile, HD stable.] Initial laboratory workup independently interpreted by me and significant for mild leukocytopenia and thrombocytopenia. Initial troponin within normal limits, no significant electrolyte derangement, Imaging independently interpreted by me and significant for chest x-ray without focal opacity or pneumothorax. See radiology read for full review of final results. EKG independently interpreted by me and significant for normal sinus rhythm. Interact discussion with patient regarding his presentation. Concern for emergent pathology at this time. He was given strict return precautions including for development of chest pain. Recommended take [id number] cough and cold medications as needed. Patient discharged in stable condition. Procedures Risk/Benefits of Procedure(s) Were Explained: Yes Critical Care Critical Care Time Critical Care Time: No
[2024-02-29 06:30] VITALS: BP 158/74; PULSE 70; O2SAT 97
[2024-02-29 06:41] LABS: Basophils % 0.8 % (0.1-2.0); Eosinophils # 0.1 K/mm3 (0.0-0.4); Eosinophils % 2.1 % (0.1-12.0); Hematocrit 36.7 % (42.0-52.0); Hemoglobin 11.9 g/dL (14.1-18.0); Lymphocytes # 0.9 K/mm3 (0.7-4.5); Lymphocytes % 24.2 % (10-50); Mean Corpuscular HGB Conc 32.4 g/dL (31.8-35.4); Mean Corpuscular Hemoglobin 26.2 pg (27.0-31.2); Mean Corpuscular Volume 80.8 fl (80-94); Mean Platelet Volume 9.4 fl (7.4-10.4); Monocytes # 0.3 K/mm3 (0.1-1.0); Monocytes % 6.3 % (1.7-9.3); Neutrophils # 2.6 K/mm3 (1.8-7.8); Neutrophils % 66.7 % (37.0-80.0); Platelet Count 109 K/mm3 (142-424); Red Blood Count 4.55 M/mm3 (4.60-6.20); Red Cell Distribution Width 16.2 % (11.5-17.5); White Blood Count 3.9 K/mm3 (4.8-10.8)
[2024-02-29 06:43] LABS: Chloride 107 mmol/L (98-107); Potassium 4.4 mmoL/L (3.5-5.1); Sodium 143 mmol/L (136-145)
[2024-02-29 06:46] LABS: Alanine Aminotransferase 54 U/L (12-78); Albumin Level 3.9 g/dl (3.5-5.0); Albumin/Globulin Ratio 1.1 (1.1-1.8); Alkaline Phosphatase 155 U/L (38-126); Anion Gap 13.4 mEq/L (5-15); Aspartate Amino Transferase 64 U/L (17-59); Bilirubin,Total 0.6 mg/dl (0.2-1.3); Blood Urea Nitrogen 15 mg/dl (9-20); Calcium 9.5 mg/dl (8.4-10.2); Carbon Dioxide 27 mmol/L (22.0-30.0); Creatinine Clearance Estimated 76 mL/min (50-200); Estimated Glomerular Filt Rate 84 ml/min (>60); GFR (African American) 101 ML/MIN (>60); Globulin 3.6 g/dL (1.3-3.2); Glucose 173 mg/dl (74-100); Total Protein,Serum 7.5 g/dl (6.3-8.2)
[2024-02-29 07:02] LABS: Troponin I 0.01 ng/ml (0.00-0.034)
[2024-02-29 07:10] VITALS: BP 160/75; PULSE 74; RESP 20; TEMP 37.1; O2SAT 99
== END 2024-02-29 07:11 | disposition home or self-care (01) ==
PROVIDERS: Emergency Provider Emergency Medicine; PCP Family Medicine
DX: R06.02 Shortness of breath (principal); R05.9 Cough, unspecified; R09.81 Nasal congestion; E11.40 Type 2 diabetes mellitus with diabetic neuropathy, unspecified; E78.5 Hyperlipidemia, unspecified; I11.9 Hypertensive heart disease without heart failure; I25.10 Atherosclerotic heart disease of native coronary artery without angina pectoris; Z79.4 Long term (current) use of insulin; Z87.891 Personal history of nicotine dependence; Z79.84 Long term (current) use of oral hypoglycemic drugs; Z79.85 Long-term (current) use of injectable non-insulin antidiabetic drugs
CPT/HCPCS: 71046; 80053; 84484; 85025; 93005; 99284

== ENCOUNTER 2024-03-22 10:24 | Outpatient (CLI) | payer MEDICARE, SELFPAY ==
[2024-03-22 10:52] LABS: Basophils % 0.5 % (0.1-2.0); Eosinophils # 0.1 K/mm3 (0.0-0.4); Eosinophils % 2.3 % (0.1-12.0); Hematocrit 35.9 % (42.0-52.0); Hemoglobin 11.5 g/dL (14.1-18.0); Lymphocytes # 0.9 K/mm3 (0.7-4.5); Lymphocytes % 22.4 % (10-50); Mean Corpuscular HGB Conc 31.9 g/dL (31.8-35.4); Mean Corpuscular Hemoglobin 25.7 pg (27.0-31.2); Mean Corpuscular Volume 80.4 fl (80-94); Mean Platelet Volume 10.1 fl (7.4-10.4); Monocytes # 0.3 K/mm3 (0.1-1.0); Neutrophils # 2.6 K/mm3 (1.8-7.8); Neutrophils % 66.8 % (37.0-80.0); Platelet Count 95 K/mm3 (142-424); Red Blood Count 4.46 M/mm3 (4.60-6.20); Red Cell Distribution Width 16.4 % (11.5-17.5); White Blood Count 3.8 K/mm3 (4.8-10.8)
[2024-03-22 11:12] LABS: Alanine Aminotransferase 46 U/L (12-78); Albumin Level 3.9 g/dl (3.5-5.0); Albumin/Globulin Ratio 1.2 (1.1-1.8); Alkaline Phosphatase 117 U/L (38-126); Anion Gap 15.4 mEq/L (5-15); Aspartate Amino Transferase 53 U/L (17-59); Bilirubin,Total 0.6 mg/dl (0.2-1.3); Blood Urea Nitrogen 14 mg/dl (9-20); Calcium 9.4 mg/dl (8.4-10.2); Carbon Dioxide 26 mmol/L (22.0-30.0); Chloride 102 mmol/L (98-107); Estimated Glomerular Filt Rate 84 ml/min (>60); GFR (African American) 101 ML/MIN (>60); Globulin 3.3 g/dL (1.3-3.2); Glucose 276 mg/dl (74-100); Potassium 4.4 mmoL/L (3.5-5.1); Sodium 139 mmol/L (136-145); Total Protein,Serum 7.2 g/dl (6.3-8.2)
[2024-03-24 18:10] LABS: QuantiFERON-TB Gold Plus Negative (Negative)
== END 2024-03-22 23:59 | disposition home or self-care (01) ==
PROVIDERS: PCP Family Medicine; Visit Provider Dermatology
DX: Z79.899 Other long term (current) drug therapy (principal); L40.0 Psoriasis vulgaris
CPT/HCPCS: 36415; 80053; 85025; 86480

== ENCOUNTER 2024-03-22 13:23 | Outpatient (POV) | payer MEDICARE, SELFPAY | END 2024-03-22 23:59 | disposition home or self-care (01) | LOC: SC 13:23 | PROVIDERS: PCP Family Medicine; Visit Provider Dermatology | DX: Z00.00 Encounter for general adult medical examination without abnormal findings (principal) ==

== ENCOUNTER 2024-04-12 11:18 | Outpatient (CLI) | payer MEDICARE, MEDICAID, SELFPAY ==
[2024-04-12 11:49] LABS: Basophils % 0.4 % (0.1-2.0); Eosinophils # 0.1 K/mm3 (0.0-0.4); Eosinophils % 2.4 % (0.1-12.0); Hemoglobin 11.4 g/dL (14.1-18.0); Lymphocytes # 0.9 K/mm3 (0.7-4.5); Lymphocytes % 21.8 % (10-50); Mean Corpuscular HGB Conc 31.6 g/dL (31.8-35.4); Mean Corpuscular Hemoglobin 25.5 pg (27.0-31.2); Mean Corpuscular Volume 80.8 fl (80-94); Monocytes # 0.3 K/mm3 (0.1-1.0); Monocytes % 6.9 % (1.7-9.3); Neutrophils # 2.7 K/mm3 (1.8-7.8); Neutrophils % 68.5 % (37.0-80.0); Platelet Count 110 K/mm3 (142-424); Red Blood Count 4.46 M/mm3 (4.60-6.20); Red Cell Distribution Width 16.6 % (11.5-17.5)
[2024-04-12 12:24] LABS: Alanine Aminotransferase 51 U/L (12-78); Albumin/Globulin Ratio 1.2 (1.1-1.8); Alkaline Phosphatase 123 U/L (38-126); Anion Gap 17.3 mEq/L (5-15); Aspartate Amino Transferase 58 U/L (17-59); Bilirubin,Total 0.6 mg/dl (0.2-1.3); Blood Urea Nitrogen 15 mg/dl (9-20); Calcium 9.1 mg/dl (8.4-10.2); Carbon Dioxide 24 mmol/L (22.0-30.0); Chloride 104 mmol/L (98-107); Estimated Glomerular Filt Rate 66 ml/min (>60); GFR (African American) 80 ML/MIN (>60); Globulin 3.3 g/dL (1.3-3.2); Glucose 110 mg/dl (74-100); Iron 56 ug/dL (49-181); Lactate Dehydrogenase 151 U/L (313-618); Potassium 4.3 mmoL/L (3.5-5.1); Sodium 141 mmol/L (136-145); Total Protein,Serum 7.3 g/dl (6.3-8.2)
[2024-04-12 12:40] LABS: Total Iron Binding Capacity 363 ug/dL (261-462)
[2024-04-12 13:00] LABS: Ferritin 11.1 ng/ml (17.9-464)
[2024-04-12 13:31] LABS: Vitamin B12 386 pg/mL (239-931)
[2024-04-12 13:58] VITALS: BMI 24.7
[2024-04-13 08:22] LABS: Haptoglobin 115 mg/dL (32-363)
[2024-04-14 14:16] LABS: Peripheral Smear Review Scanned Result
[2024-04-15 22:06] LABS: Tetanus Antitoxoid IgG Ab 6.64 IU/mL (<0.10)
== END 2024-04-12 23:59 | disposition home or self-care (01) ==
LOC: LAB 11:19
PROVIDERS: PCP Family Medicine; Visit Provider Internal Medicine Medical Oncology
DX: D61.818 Other pancytopenia (principal); Z68.24 Body mass index [BMI] 24.0-24.9, adult
CPT/HCPCS: 36415; 80053; 82607; 82728; 82746; 83010; 83540; 83550; 83615; 85025; 86774; 86880

== ENCOUNTER 2024-04-22 14:56 | Outpatient (CLI) | payer MEDICARE, MEDICAID, SELFPAY ==
--- NOTE | 2024-04-22 15:01 | CT_ITS ---
FINAL REPORT TECHNIQUE: Thin section axial CT with coronal reconstruction without IV contrast. This study was performed with techniques to keep radiation doses as low as reasonably achievable (ALARA). Individualized dose reduction techniques using automated exposure control or adjustment of mA and/or kV according to the patient's size were employed. CLINICAL HISTORY: Sinus issues after nasal septoplasty Sept 2022 COMPARISON: 05/14/2023 FINDINGS: There are surgical changes in the bilateral maxillary sinuses, ethmoid sinuses and turbinates. The nasal septum is midline. There is a mucous retention cyst in the inferior right maxillary sinus measuring 10 mm. There is mild mucosal thickening in the lateral wall of the right ethmoid sinus measuring 4 mm. The paranasal sinuses are otherwise clear. IMPRESSION: There is resolution of nasal septal deviation since prior with resection of the inferior nasal spur. No evidence of acute sinusitis. Slight enlargement of the mucous retention cyst in the right maxillary sinus. Reviewed, Interpreted and Dictated by Sonal Carcamo MD Transcribed by Adelaide Fernandez Authenticated and [facility]
== END 2024-04-22 23:59 | disposition home or self-care (01) ==
LOC: RAD 14:57
PROVIDERS: PCP Family Medicine; Visit Provider Nurse Practitioner
DX: Z98.890 Other specified postprocedural states (principal); J32.9 Chronic sinusitis, unspecified; Z87.891 Personal history of nicotine dependence
CPT/HCPCS: 70486

== ENCOUNTER 2024-05-11 16:30 | Outpatient (CLI) | payer MEDICARE, MEDICAID, SELFPAY ==
[2024-05-11 17:02] LABS: Basophils % 0.3 % (0.1-2.0); Eosinophils # 0.1 K/mm3 (0.0-0.4); Eosinophils % 1.9 % (0.1-12.0); Hematocrit 35.8 % (42.0-52.0); Hemoglobin 11.4 g/dL (14.1-18.0); Lymphocytes # 0.8 K/mm3 (0.7-4.5); Lymphocytes % 24.6 % (10-50); Mean Corpuscular HGB Conc 31.9 g/dL (31.8-35.4); Mean Corpuscular Hemoglobin 26.2 pg (27.0-31.2); Mean Corpuscular Volume 82.2 fl (80-94); Mean Platelet Volume 10.3 fl (7.4-10.4); Monocytes # 0.3 K/mm3 (0.1-1.0); Monocytes % 8.1 % (1.7-9.3); Neutrophils # 2.2 K/mm3 (1.8-7.8); Neutrophils % 65.2 % (37.0-80.0); Platelet Count 99 K/mm3 (142-424); Red Blood Count 4.35 M/mm3 (4.60-6.20); Red Cell Distribution Width 17.7 % (11.5-17.5); White Blood Count 3.4 K/mm3 (4.8-10.8)
[2024-05-11 17:35] LABS: Alanine Aminotransferase 43 U/L (12-78); Albumin Level 3.8 g/dl (3.5-5.0); Albumin/Globulin Ratio 1.1 (1.1-1.8); Alkaline Phosphatase 129 U/L (38-126); Anion Gap 10.1 mEq/L (5-15); Aspartate Amino Transferase 48 U/L (17-59); Bilirubin,Total 0.6 mg/dl (0.2-1.3); Blood Urea Nitrogen 20 mg/dl (9-20); Carbon Dioxide 24 mmol/L (22.0-30.0); Chloride 109 mmol/L (98-107); Chol/HDL Ratio 4.7 (1-3.5); Cholesterol 149 mg/dl (140-200); Estimated Glomerular Filt Rate 112 ml/min (>60); GFR (African American) 135 ML/MIN (>60); Globulin 3.4 g/dL (1.3-3.2); Glucose 220 mg/dl (74-100); HDL Cholesterol 32 mg/dl (40-60); Potassium 5.1 mmoL/L (3.5-5.1); Sodium 138 mmol/L (136-145); Total Protein,Serum 7.2 g/dl (6.3-8.2); Triglycerides 172 mg/dl (30-150); VLDL Cholesterol 34 mg/dL (0-40)
[2024-05-11 17:46] LABS: Direct LDL Cholesterol 67.45 mg/dL (100-129)
[2024-05-11 18:08] LABS: Prostate Specific Ag Screen 0.2 ng/ml (0.0-4.0); Thyroid Stimulating Hormone 2.47 uIU/mL (0.465-4.68)
[2024-05-11 18:35] LABS: Hemoglobin A1C 8.9 % (4.0-6.0)
== END 2024-05-11 23:59 | disposition home or self-care (01) ==
LOC: LAB.DROPOF 16:30
PROVIDERS: PCP Family Medicine; Visit Provider Family Medicine
DX: E11.9 Type 2 diabetes mellitus without complications (principal); D61.818 Other pancytopenia; Z12.5 Encounter for screening for malignant neoplasm of prostate
CPT/HCPCS: 80050; 80053; 80061; 83036; 84443; 85025; G0103

== ENCOUNTER 2024-05-25 12:27 | Emergency (ER) | payer MEDICARE, SELFPAY ==
[2024-05-25 12:36] VITALS: BP 189/93; PULSE 91; RESP 18; TEMP 36.6; O2SAT 99; BMI 26.2
--- NOTE | 2024-05-25 12:43 | PC.NURSE ---
DR NIETO AT BEDSIDE
--- NOTE | 2024-05-25 12:46 | HMH.EDGENADL ---
Discharge Plan Disposition Patient Disposition: Home, Self-Care Condition: Good Prescriptions Prescriptions: No Action (DME) lancets [FreeStyle Lancets] 28 gauge misc See Rx Instructions .ROUTE .MEDSUPPLY Qty: 100 Rx Instructions: As directed Cosentyx UnoReady Pen 300 mg/2 mL (150 mg/mL) pen injector 300 mg SQ (DME) pen needle, diabetic [Easy Comfort Pen [place]] 31 gauge x 3/16 needle See Rx Instructions .ROUTE .MEDSUPPLY Qty: 50 Rx Instructions: As directed hydrocodone-acetaminophen 10-325 mg tablet PO [place] Saline 0.65 % aerosol,spray 2 spray intranasal QIDP PRN (Reason: dry nasal passages) Qty: 50 0RF Ozempic 0.25 mg or 0.5 mg (2 mg/3 mL) pen injector 0.25 mg SQ WEEKLY Qty: 3 2RF Rx Instructions: for 4 weeks diclofenac sodium [Voltaren Arthritis Pain] 1 % gel 2 g topical QID Qty: 100 3RF Rx Instructions: apply to single elbow, wrist or hand; for hand includes palm/fingers/back of hand loratadine [Claritin] 10 mg tablet 10 mg PO DAILY Qty: 30 3RF (DME) blood-glucose meter [OneTouch Ultra2 Meter] Misc See Rx Instructions .Route Qty: 1 0RF Rx Instructions: As directed (DME) OneTouch Ultra Test Strip See Rx Instructions .Route Qty: 100 2RF Rx Instructions: As directed (DME) lancets [OneTouch UltraSoft 2 Lancet] 30 gauge misc See Rx Instructions .Route Qty: 100 2RF Rx Instructions: As directed diclofenac sodium 50 mg tablet,delayed release (DR/EC) 50 mg PO Q12H PRN (Reason: pain) Qty: 90 3RF metformin 1,000 mg tablet 1,000 mg PO BID 30 Days Qty: 60 2RF potassium chloride 20 mEq tablet extended release 20 meq PO DAILY Qty: 30 2RF omeprazole 20 mg capsule,delayed release(DR/EC) See Rx Instructions .ROUTE .COMPLEX Qty: 180 0RF Dose Instruction: TAKE 1 CAPSULE BY MOUTH TWICE A DAY FOR GERD FOR 90 DAYS Rx Instructions: TAKE 1 CAPSULE BY MOUTH TWICE A DAY FOR GERD FOR 90 DAYS metoprolol tartrate 25 mg tablet See Rx Instructions .ROUTE .COMPLEX Qty: 60 1RF Dose Instruction: TAKE 1 TABLET BY MOUTH TWICE DAILY FOR BLOOD PRESSURE Rx Instructions: TAKE 1 TABLET BY MOUTH TWICE DAILY FOR BLOOD PRESSURE insulin lispro protamin-lispro [Humalog Mix 75-25 KwikPen] 100 unit/mL (75-25) insulin pen 60 unit SQ BID Qty: 30 5RF Rx Instructions: 66 units units in the morning, 60 units QHS ipratropium bromide 0.02 % solution 2.5 ml inhalation Q12H gabapentin 800 mg tablet 800 mg PO QID atorvastatin 20 mg tablet 20 mg PO HS furosemide 40 mg tablet 40 mg PO DAILY lisinopril 5 mg tablet 5 mg PO DAILY albuterol sulfate 90 mcg/actuation HFA aerosol inhaler 2 inh inhalation Q6HP PRN (Reason: shortness of breath or wheezing) Referrals Follow up/Referrals: Silvio Mccain MD [Primary Care Provider] - See instructions Activity Restrictions/Add. Instructions Additional Instructions/Restrictions: You were evaluated in the emergency department today. Please follow-up very closely with your primary care provider over the next 48 hours for reassessment. Return to the emergency department for new or worsening symptoms. Clinical Impressions Clinical Impression: Shortness of breath, Low back strain Instructions Patient Instructions: DI for Low Back Pain, DI for Shortness of Breath Print Language Print Language: Somali Discharge ED Provider: Joseline Mendes General Adult HPI General Chief complaint: Back Pain/Injury Stated complaint: back and arm pain Time Seen by Provider: 05/25/24 12:39 Mode of Arrival: Ambulatory Source of Information: Patient Limitations: No Limitations Description of Symptoms (Recalled from ER Triage Doc. by RN): pts original complaint is lower central back pain that has been ongoing x1wk. The pain aches in nature and is a 7/10. Upon assessing pt he states that he also has a HENRIQUEZ between his eyes that is acute, 5/10, and onoing x2-3d. Pt is also concerned his FS was 253 this am. When asking about the pts hx he states he came here for SOA x1wk. PT also states, my penis is not working and the viagra isn't helping. pt has a hx of CAD, HTN, HLD, COPD, and 6x CABG. History of Present Illness HPI narrative: This patient is a 68-year-old male with a history of type 2 diabetes, hypertension, hyperlipidemia, diabetic foot wounds, CAD, COPD, and GERD presenting to the emergency department with multiple complaints. He states that he has a little bit of everything going on. He notes that he went fishing about a week ago and has had low back pain since then. He states that at first whenever it started bothering him while fishing, it was radiating down his leg, but that has stopped and is only hurting in his low back. He states that it feels like an ache. No numbness, tingling, saddle anesthesia, incontinence, urinary retention, or other concerns. He initially stated that is why he came here, but then he states that he came because he feels like he has the flu. He states that he has had a headache and bodyaches for couple days. He also notes that he has had shortness of air for about a week now. He also notes that he has a hernia, but he states that his hernia is not hurting him or bothering him is just kind of always there in his upper abdomen. He also notes high blood sugar readings at home in the 250s. No other concerns noted, such as fevers, chills, vision changes, numbness, tingling, unilateral weakness, or other concerns. Related Data Home Medications ?Medication ?Instructions ?Recorded ?Confirmed lancets 28 gauge (FreeStyle #100 ea 04/01/22 05/10/24 Lancets) pen needle, diabetic 31 gauge x #50 ea 08/20/22 05/10/2401/15 (Easy Comfort Pen [place]) gabapentin 800 mg tablet 800 mg PO QID Pain 07/02/23 05/10/24 ipratropium bromide 0.02 % 2.5 ml inhalation Q12H Breathing 07/02/23 05/10/24 solution for inhalation Problems albuterol sulfate 90 mcg/actuation 2 inh inhalation Q6HP PRN 11/08/23 05/10/24 aerosol inhaler shortness of breath or wheezing atorvastatin 20 mg tablet 20 mg PO HS Cholesterol 11/08/23 05/10/24 furosemide 40 mg tablet 40 mg PO DAILY Fluid 11/08/23 05/10/24 lisinopril 5 mg tablet 5 mg PO DAILY High Blood Pressure 11/08/23 05/10/24 hydrocodone 10 mg-acetaminophen tab PO 02/08/24 05/10/24 325 mg tablet secukinumab 300 mg/2 mL (150 300 mg SQ 04/12/24 05/10/24 mg/mL) subcutaneous pen injector (Cosentyx UnoReady Pen) Previous Rx's ?Medication ?Instructions ?Recorded semaglutide 0.25 mg or 0.5 mg (2 0.25 mg (0.368 mL) SQ WEEKLY #3 mL 11/17/23 mg/3 mL) subcutaneous pen injector (Ozempic) blood sugar diagnostic (OneTouch #100 ea 11/18/23 Ultra Test strips) blood-glucose meter (OneTouch #1 ea 11/18/23 Ultra2 Meter) lancets 30 gauge (OneTouch #100 ea 11/18/23 UltraSoft 2 Lancet) diclofenac sodium 50 mg 50 mg PO Q12H PRN pain #90 tabs 01/11/24 tablet,delayed release sodium chloride 0.65 % nasal spray 2 spray intranasal QIDP PRN dry 02/08/24 aerosol ([place] Saline) nasal passages #50 mL diclofenac sodium 1 % topical gel 2 g topical QID #100 grams 02/09/24 (Voltaren Arthritis Pain) metformin 1,000 mg tablet 1,000 mg PO BID Diabetes 30 days 03/11/24 #60 tabs loratadine 10 mg tablet (Claritin) 10 mg PO DAILY Allergy Symptoms 04/07/24 #30 tabs omeprazole 20 mg capsule,delayed See Rx Instructions .Route 05/11/24 release .COMPLEX #180 caps potassium chloride 20 mEq 20 meq PO DAILY #30 tabs 05/11/24 tablet,extended release insulin lispro protamine-lispro 60 unit (0.6 mL) SQ BID Diabetes 05/19/24 100 unit/mL (75-25) subcutaneous #30 mL pen (Humalog Mix 75-25 KwikPen) metoprolol tartrate 25 mg tablet See Rx Instructions .Route 05/19/24 .COMPLEX #60 tabs Allergies Allergy/AdvReac Type Severity Reaction Status Date / Time No Known Allergies Allergy Verified 05/25/24 12:37 [facility] Disclaimer: The information contained in this section may have been updated after the patient was seen, as this information can be updated by other users. Medical History Sinusitis Splenomegaly Sepsis Colitis Left shoulder pain Edema Abnormal electrocardiogram [ECG] [EKG] Sinus mucosal thickening Diastasis recti Sunburn Deviated nasal septum Chronic sinusitis Incurvated nail COPD (chronic obstructive pulmonary disease) Shoulder pain, bilateral TMJ arthralgia Cervical paraspinous muscle spasm Pharyngitis Acute bronchitis Otitis externa Cerumen impaction Acute sinusitis Erectile dysfunction Diabetic foot Callus of foot Muscle strain Rib pain on right side Bruising Pain of right upper arm Pain in right shoulder Neck Pain Callus Psoriasis History of diabetes mellitus, type II History of hyperlipidemia History of hypertension Cellulitis of left foot Carpal tunnel syndrome of right wrist Cellulitis VRE (vancomycin resistant enterococcus) culture positive Gas gangrene of foot Foot abscess, right Severe sepsis with acute organ dysfunction Cellulitis of right foot Diabetic ulcer of left foot Diabetic foot Type 2 diabetes mellitus with diabetic polyneuropathy, with long-term current use of insulin Amputation of toe of left foot Other acute osteomyelitis, right ankle and foot Diabetic ulcer of toe of right foot associated with type 2 diabetes mellitus, limited to breakdown of skin Diabetes mellitus Foot osteomyelitis, right Pre-ulcerative calluses Diabetic infection of right foot Diabetic ulcer of right foot Encounter for wound care Onychomycosis Nail dystrophy Overweight (BMI 25.0-29.9) Left foot pain Hammertoes of both feet Diabetes mellitus with diabetic neuropathy, with long-term current use of insulin Amputation of one or more toes Equinus contracture of left ankle Gangrene of toe of left foot Diabetic foot infection Cellulitis and abscess of foot Infected surgical wound Dyspnea CAD, multiple vessel Hyperlipidemia Hypertension IDDM (insulin dependent diabetes mellitus) Non-STEMI (non-ST elevated myocardial infarction) Surgical History History of nasal septoplasty Status post nasal septoplasty History of amputation of toe History of amputation of toe Hx of cataract surgery Status post foot surgery History of amputation of right great toe S/P CABG x 6 Family History Mother Heart attack Social History Smoking Status: Former smoker tobacco type: cigarettes packs per day: 3 years smoked: 25 smoking status stop date: 11/02/2001 how long ago did patient quit smokin second hand exposure: Yes alcohol intake: former substance use type: denies use current occupational status: disabled Travel in the last 8 weeks: None household members: none housing: apartment caffeine: Yes ROS Obtained: Yes All systems reviewed & no additional complaints except as documented Physical Exam General General appearance: alert and in no apparent distress Head Head exam: atraumatic and normocephalic Eye Eye exam: Present normal appearance, PERRL and EOMI ENT ENT exam: Present normal exam, normal oropharynx, mucous membranes moist and normal external ear exam Neck Neck exam: Present normal inspection, full ROM and trachea midline; Absent tenderness Chest Chest inspection: Present normal inspection and symmetric chest wall rise; Absent tenderness Respiratory Respiratory exam: Present normal lung sounds bilaterally; Absent respiratory distress, wheezes, stridor or accessory muscle use Cardiovascular Cardiovascular exam: Present regular rate and normal rhythm Abdominal Exam Abdominal exam: Present soft; Absent distention, tenderness or guarding Extremities Exam Extremities exam: Present normal inspection, full ROM and normal capillary refill; Absent tenderness or edema Back Exam Back exam: Present normal inspection and full ROM; Absent tenderness Neurological Exam Neurological exam: Present alert, oriented X3, CN II-XII intact and normal gait; Absent motor sensory deficit Psychiatric Psychiatric exam: Present normal affect and normal mood Skin Skin exam: Present warm and dry Medical Decision Making Medical Records Medical records reviewed: Yes I reviewed the patient's medical records. Jose Inquiry Pt receiving controlled substance: No Vital Signs: 05/25/24 12:36 05/25/24 13:00 05/25/24 14:01 Temperature 98 F Temperature Source Oral Pulse Rate 79 72 Pulse Rate [Left] 91 H Respiratory Rate 18 Blood Pressure 166/81 H 158/81 H Blood Pressure [Right Arm] 189/93 H Blood Pressure Mean [Right Arm] 125 Blood Pressure Source [Right Arm] Automatic Cuff Blood Pressure Position [Right Arm] Sitting 02 Sat by Pulse Oximetry 99 97 99 Oxygen Delivery Method Room Air 05/25/24 14:31 05/25/24 15:01 05/25/24 15:50 Temperature 98 F Temperature Source Pulse Rate 70 70 75 Pulse Rate [Left] Respiratory Rate 16 Blood Pressure 147/70 H 110/61 175/93 H Blood Pressure [Right Arm] Blood Pressure Mean [Right Arm] Blood Pressure Source [Right Arm] Blood Pressure Position [Right Arm] 02 Sat by Pulse Oximetry 97 98 Oxygen Delivery Method Lab Data Lab results reviewed: Yes I reviewed the patient's lab results. Lab Results 05/25/24 12:39: WBC 4.2 L, RBC 4.50 L, Hgb 11.8 L, Hct 36.4 L, MCV 80.9, MCH 26.2 L, MCHC 32.4, RDW 17.6 H, Plt Count 105 L, MPV 9.0, Neut % (Auto) 67.8, Lymph % (Auto) 21.4, Hood % (Auto) 7.9, Eos % (Auto) 1.9, Baso % (Auto) 0.9, Neut # (Auto) 2.9, Lymph # (Auto) 0.9, [place] # (Auto) 0.3, Eos # (Auto) 0.1, Baso # (Auto) 0.0, D-Dimer < 0.25, Sodium 142, Potassium 4.7, Chloride 108 H, Carbon Dioxide 24, Anion Gap 14.7, BUN 22 H, Creatinine 1.10, Estimated Creat Clear 72, Estimated GFR 66, Est GFR ( Amer) 80, Glucose 170 H, Calcium 9.6, Total Bilirubin 0.8, AST 73 H, ALT 53, Alkaline Phosphatase 141 H, Troponin I 0.02, NT-Pro-B Natriuret Pep 240 H, Total Protein 8.1, Albumin 4.1, Globulin 4.0 H, Albumin/Globulin Ratio 1.0 L, Lipase 227 05/25/24 12:50: SARS-CoV-2 (PCR) Not detected, Influenza A Untype (PCR) Not detected, Influenza Type B (PCR) Not detected 05/25/24 13:39: Urine Color Yellow, Urine Appearance Clear, Urine pH 5.5, Ur Specific [place] 1.020, Urine Protein Negative, Urine Glucose (UA) Negative, Urine Ketones Negative, Urine Blood Negative, Urine Nitrate Negative, Urine Bilirubin Negative, Urine Urobilinogen 0.2, Ur Leukocyte Esterase Negative, Urine RBC None, Urine WBC None, Ur Squamous Epith Cells None, Urine Bacteria None 05/25/24 15:11: Troponin I 0.02 05/25/24 12:39 05/25/24 12:39 Orders (Tests/Meds): ED MEDICATIONS Discontinued Medications Generic Name Dose Route Start Last Admin Trade Name Freq PRN Reason Stop Dose Admin Acetaminophen 1,000 mg 05/25/24 13:02 05/25/24 13:16 Acetaminophen 1,000mg/100ml Vial IV 05/25/24 13:03 1,000 mg ONCE ONE Administration Ketorolac Tromethamine 15 mg 05/25/24 13:02 05/25/24 13:16 Ketorolac 30mg/Ml Vial IV 05/25/24 13:03 15 mg ONCE ONE Administration ORDERS Category Date Time Status CXR 2 view (NOT portable) [XR chest 2V] Stat Exams 05/25/24 13:01 Taken BNP [NT Pro Brain Natriuretic Pep.] Stat Lab 05/25/24 12:39 Completed Complete Blood Count Auto Diff Stat Lab 05/25/24 12:39 Completed Comprehensive Metabolic Panel Stat Lab 05/25/24 12:39 Completed D-Dimer Stat Lab 05/25/24 12:39 Completed Lipase Stat Lab 05/25/24 12:39 Completed Rapid PCR Covid and Flu A/B Stat Lab 05/25/24 12:50 Completed Trop I [Troponin I] Stat Lab 05/25/24 12:39 Completed Troponin I Q3H Lab 05/25/24 15:11 Completed Troponin I Q3H Lab 05/25/24 18:45 Ordered UA [Urinalysis and Microscopic] Stat Lab 05/25/24 13:39 Completed ECG Data Tracing #1: I reviewed this ECG and interpreted as documented below: Normal sinus rhythm with a ventricular rate of [address] changes concerning for ischemia. Nonspecific ST/T wave changes that are not significantly different from prior ECG. ECG initial impression date: 05/25/24 ECG initial impression time: 13:01 Medical Decision Narrative: In summary, this patient is a 68-year-old male presenting to the Emergency Department for evaluation of multiple complaints, including feeling like he has the flu with mild headache, low back ache after fishing, abdominal hernia that is been persistent for a while now, high blood sugar readings, and shortness of breath that waxes and wanes. Differential diagnoses considered include but are not limited to musculoskeletal strain/sprain, viral syndrome, electrolyte derangements, dehydration, ACS, dysrhythmia. Ruling out the most morbid conditions drove assessment. It should be noted patient's history includes hypertension, hyperlipidemia, CAD, diabetes which may or may not be at goal therapy. This complicates all aspects of care by increasing patient's risk for morbidity. I reviewed patient's past medical records and noted previous ED evaluations for shortness of breath in the past. On exam, the patient is very well-appearing. He is sitting upright in bed in no acute distress, is conversational, and is pleasant. He is ambulatory without difficulty. He is neurologically intact with normal vital signs on cardiac telemetry with the exception of hypertension. He has multiple vague complaints that he changes when talking to different people, including registration, triage nurse, and myself. Ultimately, his concern was a past complaint based on his history and exam would be his shortness of breath. I doubt serious etiology behind his back pain, as he is neurologically intact and it seems to be present after straining himself while fishing. No alarm symptoms of back pain. I also doubt significant etiology of his headache, as he is having only a mild headache with no neurologic deficits. Workup included lab evaluation to evaluate for infectious, metabolic, or cardiac cause of his multiple vague symptoms. EKG and chest x-ray were also obtained. He was given IV Toradol and acetaminophen for symptomatic improvement. EKG is reassuring. I independently interpreted x-ray prior to the radiologist read and noted no acute focal consolidation concerning for pneumonia, no pulmonary edema, and no pneumothorax. Please see their read for final interpretation. Labs were obtained that demonstrated no significant changes from the patient's baseline. Initial troponin negative. BNP is not significantly elevated. D-dimer negative. Urine clean. No elevation in anion gap or significant hyperglycemia to suggest DKA or HHS. At 1350, patient was placed in ED observation status pending second troponin and reassessment to determine whether or not the patient would be appropriate for discharge versus admission. The patient was provided serial reevaluations and cardiac monitoring while awaiting ultimate disposition. Second troponin resulted and is negative. On reassessment, patient is resting comfortably. He is ambulatory without difficulty, is tolerating oral intake without difficulty, and he states he is feeling a whole lot better after Toradol and Tylenol to treat his symptoms. I feel we have ruled out life-threatening pathology at this time. Given this, he is agreeable with discharge. Patient deemed to be appropriate for discharge at 1550 after approximately 2 hours in ED observation status. He was given instructions for very close follow-up with his primary care provider and strict return precautions. He was discharged after all questions were answered. Critical Care Critical Care Time Critical Care Time: No
--- NOTE | 2024-05-25 12:52 | ECG_ITS ---
APPROVED REPORT Exam: Resting ECG HR:83 bpm ECG Measurements Heart Rate 83 AXES PA 189 P 228 QRSd 109 QRS 86 QT 371 T 196 QTc 410 Conclusion SINUS RHYTHM LATERAL MYOCARDIAL INFARCTION , OF INDETERMINATE AGE [40+ ms Q WAVE AND/OR ST/T ABNORMALITY IN I/aVL/V5/V6] ABNORMAL ECG Electronically signed by : JESIKA NIETO, 05/26/2024 22:08:25
[2024-05-25 12:54] LABS: Chloride 108 mmol/L (98-107)
[2024-05-25 12:55] LABS: Coronavirus 19, PCR Not Detected (NotDetected); Influenza A, PCR Not Detected (NotDetected); Influenza B, PCR Not Detected (NotDetected)
[2024-05-25 12:55] LABS: Potassium 4.7 mmoL/L (3.5-5.1); Sodium 142 mmol/L (136-145)
[2024-05-25 12:57] LABS: Alanine Aminotransferase 53 U/L (12-78); Aspartate Amino Transferase 73 U/L (17-59); Blood Urea Nitrogen 22 mg/dl (9-20); Creatinine Clearance Estimated 72 mL/min (50-200); Estimated Glomerular Filt Rate 66 ml/min (>60); GFR (African American) 80 ML/MIN (>60)
[2024-05-25 12:58] LABS: Albumin Level 4.1 g/dl (3.5-5.0); Alkaline Phosphatase 141 U/L (38-126); Anion Gap 14.7 mEq/L (5-15); Bilirubin,Total 0.8 mg/dl (0.2-1.3); Calcium 9.6 mg/dl (8.4-10.2); Carbon Dioxide 24 mmol/L (22.0-30.0); Glucose 170 mg/dl (74-100); Lipase 227 U/L (23-300); Total Protein,Serum 8.1 g/dl (6.3-8.2)
[2024-05-25 13:00] VITALS: BP 166/81; PULSE 79; O2SAT 97
--- NOTE | 2024-05-25 13:01 | XR_ITS ---
FINAL REPORT CLINICAL HISTORY: SOA COMPARISON: 05/25/2024 FINDINGS: No acute pulmonary density is evident. There is no evidence of effusion or other pleural disease. Patient is status post CABG. The cardiac silhouette is unremarkable. IMPRESSION: No acute process. Reviewed, Interpreted and Dictated by Sonal Carcamo MD Transcribed by Adelaide Fernandez Authenticated and . [facility]
[2024-05-25 13:04] LABS: Basophils % 0.9 % (0.1-2.0); Eosinophils # 0.1 K/mm3 (0.0-0.4); Eosinophils % 1.9 % (0.1-12.0); Hematocrit 36.4 % (42.0-52.0); Hemoglobin 11.8 g/dL (14.1-18.0); Lymphocytes # 0.9 K/mm3 (0.7-4.5); Lymphocytes % 21.4 % (10-50); Mean Corpuscular HGB Conc 32.4 g/dL (31.8-35.4); Mean Corpuscular Hemoglobin 26.2 pg (27.0-31.2); Mean Corpuscular Volume 80.9 fl (80-94); Monocytes # 0.3 K/mm3 (0.1-1.0); Monocytes % 7.9 % (1.7-9.3); Neutrophils # 2.9 K/mm3 (1.8-7.8); Neutrophils % 67.8 % (37.0-80.0); Platelet Count 105 K/mm3 (142-424); Red Cell Distribution Width 17.6 % (11.5-17.5); White Blood Count 4.2 K/mm3 (4.8-10.8)
[2024-05-25 13:07] LABS: NT Pro Brain Natriuretic Pep. 240 pg/mL (0-125)
[2024-05-25 13:10] LABS: Troponin I 0.02 ng/ml (0.00-0.034)
[2024-05-25] MEDS: ACETAMINOPHEN 1,000MG/100ML VIAL 1000 MG IV (13:16)
[2024-05-25] MEDS: KETOROLAC 30MG/ML VIAL 15 MG IV (13:16)
[2024-05-25 13:43] LABS: Microscopic, Urine URINE MICROSCOPIC (MICROSCOPIC)
[2024-05-25 14:01] VITALS: BP 158/81; PULSE 72; O2SAT 99
[2024-05-25 14:02] LABS: Appearance,Urine CLEAR (Clear); Bilirubin,Urine Negative (Negative); Blood, Urine Negative (Negative); Color,Urine YELLOW (Yellow); Glucose,Urine (UA) Negative (Negative); Ketones,Urine Negative (Negative); Leukocyte Esterase,Urine Negative (Negative); Nitrate,Urine Negative (Negative); PH,Urine 5.5 (5.0-8.5); Protein,Urine Negative (Negative); Urobilinogen,Urine 0.2 EU/dl (0.2)
[2024-05-25 14:10] LABS: D-Dimer < 0.25 ug/mL (0.0-0.5)
[2024-05-25 14:31] VITALS: BP 147/70; PULSE 70; O2SAT 97
[2024-05-25 15:01] VITALS: BP 110/61; PULSE 70; O2SAT 98
[2024-05-25 15:38] LABS: Troponin I 0.02 ng/ml (0.00-0.034)
[2024-05-25 15:50] VITALS: BP 175/93; PULSE 75; RESP 16; TEMP 36.6
== END 2024-05-25 16:00 | disposition home or self-care (01) ==
PROVIDERS: Emergency Provider Emergency Medicine; PCP Family Medicine
DX: R06.02 Shortness of breath (principal); S39.012A Strain of muscle, fascia and tendon of lower back, initial encounter; R51.9 Headache, unspecified; M79.18 Myalgia, other site; J44.9 Chronic obstructive pulmonary disease, unspecified; E11.40 Type 2 diabetes mellitus with diabetic neuropathy, unspecified; K21.9 Gastro-esophageal reflux disease without esophagitis; E78.5 Hyperlipidemia, unspecified; I11.9 Hypertensive heart disease without heart failure; I25.10 Atherosclerotic heart disease of native coronary artery without angina pectoris; Z87.891 Personal history of nicotine dependence; Z95.1 Presence of aortocoronary bypass graft; Z79.4 Long term (current) use of insulin; Z79.84 Long term (current) use of oral hypoglycemic drugs; Z79.85 Long-term (current) use of injectable non-insulin antidiabetic drugs; X50.0XXA Overexertion from strenuous movement or load, initial encounter
CPT/HCPCS: 71046; 80053; 81001; 83690; 83880; 84484; 85025; 85378; 87636; 93005; 96374; 96375; 99284; J0131; J1885

== ENCOUNTER 2024-05-29 20:21 | Emergency (ER) | payer MEDICARE, SELFPAY ==
[2024-05-29 20:26] VITALS: BP 213/88; PULSE 80; RESP 16; TEMP 36.9; O2SAT 98; BMI 26.2
--- NOTE | 2024-05-29 20:33 | XR_ITS ---
PROCEDURE INFORMATION: Exam: XR Chest Exam date and time: 05/29/2024 8:37 PM Age: 68 years old Clinical indication: Shortness of breath; Additional info: Shortness of air TECHNIQUE: Imaging protocol: Radiologic exam of the chest. Views: 2 views. COMPARISON: CR XR CHEST 2V 05/25/2024 1:12 PM FINDINGS: Lungs: Mild interstitial prominence. No focal consolidation. Pleural spaces: Unremarkable. No pleural effusion. No pneumothorax. Heart/Mediastinum: Evidence of prior CABG. Vasculature: Unremarkable. Bones/joints: Unremarkable. IMPRESSION: No focal consolidation. Mild interstitial prominence which appears chronic.
--- NOTE | 2024-05-29 20:33 | ECG_ITS ---
APPROVED REPORT Exam: Resting ECG HR:79 bpm ECG Measurements Heart Rate 79 AXES SD 185 P -73 QRSd 97 QRS 89 QT 380 T 9 QTc 415 Conclusion SINUS RHYTHM Electronically signed by : COLEMAN FLORES, 05/29/2024 21:34:05
[2024-05-29 20:42] LABS: Basophils % 0.6 % (0.1-2.0); Eosinophils # 0.1 K/mm3 (0.0-0.4); Eosinophils % 1.8 % (0.1-12.0); Hematocrit 35.9 % (42.0-52.0); Hemoglobin 11.2 g/dL (14.1-18.0); Mean Corpuscular HGB Conc 31.3 g/dL (31.8-35.4); Mean Corpuscular Hemoglobin 25.8 pg (27.0-31.2); Mean Corpuscular Volume 82.5 fl (80-94); Mean Platelet Volume 10.8 fl (7.4-10.4); Monocytes # 0.3 K/mm3 (0.1-1.0); Monocytes % 6.1 % (1.7-9.3); Neutrophils # 2.8 K/mm3 (1.8-7.8); Neutrophils % 67.5 % (37.0-80.0); Platelet Count 101 K/mm3 (142-424); Red Blood Count 4.35 M/mm3 (4.60-6.20); Red Cell Distribution Width 17.7 % (11.5-17.5); White Blood Count 4.1 K/mm3 (4.8-10.8)
[2024-05-29 20:45] LABS: Albumin Level 4.2 g/dl (3.5-5.0); Chloride 107 mmol/L (98-107); Potassium 4.9 mmoL/L (3.5-5.1); Sodium 140 mmol/L (136-145)
[2024-05-29 20:47] LABS: Blood Urea Nitrogen 20 mg/dl (9-20); Creatinine Clearance Estimated 72 mL/min (50-200); Estimated Glomerular Filt Rate 66 ml/min (>60); GFR (African American) 80 ML/MIN (>60)
[2024-05-29 20:48] LABS: Alanine Aminotransferase 54 U/L (12-78); Albumin/Globulin Ratio 1.1 (1.1-1.8); Alkaline Phosphatase 135 U/L (38-126); Anion Gap 12.9 mEq/L (5-15); Aspartate Amino Transferase 70 U/L (17-59); Bilirubin,Total 0.6 mg/dl (0.2-1.3); Calcium 9.3 mg/dl (8.4-10.2); Carbon Dioxide 25 mmol/L (22.0-30.0); Globulin 3.7 g/dL (1.3-3.2); Glucose 274 mg/dl (74-100); Total Protein,Serum 7.9 g/dl (6.3-8.2)
[2024-05-29 20:57] LABS: NT Pro Brain Natriuretic Pep. 236 pg/mL (0-125)
[2024-05-29 21:01] VITALS: BP 157/78; PULSE 73; RESP 16; O2SAT 98
[2024-05-29 21:05] LABS: Troponin I 0.01 ng/ml (0.00-0.034)
[2024-05-29 21:30] VITALS: BP 157/77; PULSE 72; RESP 16; O2SAT 98
--- NOTE | 2024-05-29 21:30 | PC.NURSE ---
called and contacted rad for read update.
--- NOTE | 2024-05-29 21:36 | ED_ITS ---
Discharge Plan Disposition Patient Disposition: Home, Self-Care Condition: Good Chief Complaint: Shortness of Breath/Dyspnea Prescriptions Prescriptions: No Action (DME) lancets [FreeStyle Lancets] 28 gauge misc See Rx Instructions .ROUTE .MEDSUPPLY Qty: 100 Rx Instructions: As directed Cosentyx UnoReady Pen 300 mg/2 mL (150 mg/mL) pen injector 300 mg SQ ketorolac 10 mg tablet 10 mg PO Q8H 4 Days Qty: 12 0RF (DME) pen needle, diabetic [Easy Comfort Pen [place]] 31 gauge x 3/16 needle See Rx Instructions .ROUTE .MEDSUPPLY Qty: 50 Rx Instructions: As directed hydrocodone-acetaminophen 10-325 mg tablet PO [employer] Saline 0.65 % aerosol,spray 2 spray intranasal QIDP PRN (Reason: dry nasal passages) Qty: 50 0RF Ozempic 0.25 mg or 0.5 mg (2 mg/3 mL) pen injector 0.25 mg SQ WEEKLY Qty: 3 2RF Rx Instructions: for 4 weeks diclofenac sodium [Voltaren Arthritis Pain] 1 % gel 2 g topical QID Qty: 100 3RF Rx Instructions: apply to single elbow, wrist or hand; for hand includes palm/fingers/back of hand loratadine [Claritin] 10 mg tablet 10 mg PO DAILY Qty: 30 3RF (DME) blood-glucose meter [OneTouch Ultra2 Meter] [facility] [place] See Rx Instructions .Route Qty: 1 0RF Rx Instructions: As directed (DME) OneTouch Ultra Test Strip See Rx Instructions .Route Qty: 100 2RF Rx Instructions: As directed (DME) lancets [OneTouch UltraSoft 2 Lancet] [facility] See Rx Instructions .Route Qty: 100 2RF Rx Instructions: As directed diclofenac sodium 50 mg tablet,delayed release (DR/EC) 50 mg PO Q12H PRN (Reason: pain) Qty: 90 3RF metformin 1,000 mg tablet 1,000 mg PO BID 30 Days Qty: 60 2RF potassium chloride 20 mEq tablet extended release 20 meq PO DAILY Qty: 30 2RF omeprazole 20 mg capsule,delayed release(DR/EC) See Rx Instructions .ROUTE .COMPLEX Qty: 180 0RF Dose Instruction: TAKE 1 CAPSULE BY MOUTH TWICE A DAY FOR GERD FOR 90 DAYS Rx Instructions: TAKE 1 CAPSULE BY MOUTH TWICE A DAY FOR GERD FOR 90 DAYS metoprolol tartrate 25 mg tablet See Rx Instructions .ROUTE .COMPLEX Qty: 60 1RF Dose Instruction: TAKE 1 TABLET BY MOUTH TWICE DAILY FOR BLOOD PRESSURE Rx Instructions: TAKE 1 TABLET BY MOUTH TWICE DAILY FOR BLOOD PRESSURE insulin lispro protamin-lispro [Humalog Mix 75-25 KwikPen] 100 unit/mL (75-25) insulin pen 60 unit SQ BID Qty: 30 5RF Rx Instructions: 66 units units in the morning, 60 units QHS ipratropium bromide 0.02 % solution 2.5 ml inhalation Q12H gabapentin 800 mg tablet 800 mg PO QID atorvastatin 20 mg tablet 20 mg PO HS furosemide 40 mg tablet 40 mg PO DAILY lisinopril 5 mg tablet 5 mg PO DAILY albuterol sulfate 90 mcg/actuation HFA aerosol inhaler 2 inh inhalation Q6HP PRN (Reason: shortness of breath or wheezing) Referrals Follow up/Referrals: Silvio Mccain MD [Primary Care Provider] - See instructions Activity Restrictions/Add. Instructions Additional Instructions/Restrictions: Your blood work and imaging was reassuring while in the emergency department. Please follow-up closely with your primary care provider for continued management and return for any new or worsening symptoms. Clinical Impressions Clinical Impression: Shortness of breath Instructions Patient Instructions: DI for Shortness of Breath Print Language Print Language: Setswana Discharge ED Provider: Cristine Swift General Chief Complaint: Shortness of Breath/Dyspnea Stated Complaint: SOA Time Seen by Provider: 05/29/24 20:25 Mode of Arrival: Family Vehicle Source of Information: Patient Limitations: No Limitations Description of Symptoms (Recalled from ER Triage Doc. by RN): 68 yo male presents with acute on chronics dyspnea for which he states has been ongoing since last visit to this ED. Ambulated into Ed without issue, oxygen saturation 99%. Patient denies angina, denies cough/congestion. States they put him on medication last week and that he doesn't recall what it is. Further elaborates he has since taken his last dose of lasix that he has. 1-2+pedal edema present bilaterally. Denies n/v/d. History of Present Illness HPI narrative: Patient is a 68-year-old male with past medical history diabetes, CAD status post bypass and CHF presenting with shortness of breath. Patient states that he was seen 1 week ago with similar symptoms and had a CT scan at that time a with reassuring workup. He does take Lasix and has been continuing to take this by his last dose was taken this morning. He denies any fevers or chills, cough or congestion, denies any chest pain. He does not wear oxygen at baseline. Related Data Home Medications ?Medication ?Instructions ?Recorded ?Confirmed lancets 28 gauge (FreeStyle #100 ea 04/01/22 05/10/24 Lancets) pen needle, diabetic 31 gauge x #50 ea 08/20/22 05/10/2401/15 (Easy Comfort Pen [place]) gabapentin 800 mg tablet 800 mg PO QID Pain 07/02/23 05/10/24 ipratropium bromide 0.02 % 2.5 ml inhalation Q12H Breathing 07/02/23 05/10/24 solution for inhalation Problems albuterol sulfate 90 mcg/actuation 2 inh inhalation Q6HP PRN 11/08/23 05/10/24 aerosol inhaler shortness of breath or wheezing atorvastatin 20 mg tablet 20 mg PO HS Cholesterol 11/08/23 05/10/24 furosemide 40 mg tablet 40 mg PO DAILY Fluid 11/08/23 05/10/24 lisinopril 5 mg tablet 5 mg PO DAILY High Blood Pressure 11/08/23 05/10/24 hydrocodone 10 mg-acetaminophen tab PO 02/08/24 05/10/24 325 mg tablet secukinumab 300 mg/2 mL (150 300 mg SQ 04/12/24 05/10/24 mg/mL) subcutaneous pen injector (Cosentyx UnoReady Pen) Previous Rx's ?Medication ?Instructions ?Recorded semaglutide 0.25 mg or 0.5 mg (2 0.25 mg (0.368 mL) SQ WEEKLY #3 mL 11/17/23 mg/3 mL) subcutaneous pen injector (Ozempic) blood sugar diagnostic (OneTouch #100 ea 11/18/23 Ultra Test strips) blood-glucose meter (OneTouch #1 ea 11/18/23 Ultra2 Meter) lancets 30 gauge (OneTouch #100 ea 11/18/23 UltraSoft 2 Lancet) diclofenac sodium 50 mg 50 mg PO Q12H PRN pain #90 tabs 01/11/24 tablet,delayed release sodium chloride 0.65 % nasal spray 2 spray intranasal QIDP PRN dry 02/08/24 aerosol ([employer] Saline) nasal passages #50 mL diclofenac sodium 1 % topical gel 2 g topical QID #100 grams 02/09/24 (Voltaren Arthritis Pain) metformin 1,000 mg tablet 1,000 mg PO BID Diabetes 30 days 03/11/24 #60 tabs loratadine 10 mg tablet (Claritin) 10 mg PO DAILY Allergy Symptoms 04/07/24 #30 tabs omeprazole 20 mg capsule,delayed See Rx Instructions .Route 05/11/24 release .COMPLEX #180 caps potassium chloride 20 mEq 20 meq PO DAILY #30 tabs 05/11/24 tablet,extended release insulin lispro protamine-lispro 60 unit (0.6 mL) SQ BID Diabetes 05/19/24 100 unit/mL (75-25) subcutaneous #30 mL pen (Humalog Mix 75-25 KwikPen) metoprolol tartrate 25 mg tablet See Rx Instructions .Route 05/19/24 .COMPLEX #60 tabs ketorolac 10 mg tablet 10 mg PO Q8H back pain 4 days #12 05/26/24 tabs Allergies Allergy/AdvReac Type Severity Reaction Status Date / Time No Known Allergies Allergy Verified 05/26/24 09:00 [facility] Disclaimer: The information contained in this section may have been updated after the patient was seen, as this information can be updated by other users. Medical History Sinusitis Splenomegaly Sepsis Colitis Left shoulder pain Edema Abnormal electrocardiogram [ECG] [EKG] Sinus mucosal thickening Diastasis recti Sunburn Deviated nasal septum Chronic sinusitis Incurvated nail COPD (chronic obstructive pulmonary disease) Shoulder pain, bilateral TMJ arthralgia Cervical paraspinous muscle spasm Pharyngitis Acute bronchitis Otitis externa Cerumen impaction Acute sinusitis Erectile dysfunction Diabetic foot Callus of foot Muscle strain Rib pain on right side Bruising Pain of right upper arm Pain in right shoulder Neck Pain Callus Psoriasis History of diabetes mellitus, type II History of hyperlipidemia History of hypertension Cellulitis of left foot Carpal tunnel syndrome of right wrist Cellulitis VRE (vancomycin resistant enterococcus) culture positive Gas gangrene of foot Foot abscess, right Severe sepsis with acute organ dysfunction Cellulitis of right foot Diabetic ulcer of left foot Diabetic foot Type 2 diabetes mellitus with diabetic polyneuropathy, with long-term current use of insulin Amputation of toe of left foot Other acute osteomyelitis, right ankle and foot Diabetic ulcer of toe of right foot associated with type 2 diabetes mellitus, limited to breakdown of skin Diabetes mellitus Foot osteomyelitis, right Pre-ulcerative calluses Diabetic infection of right foot Diabetic ulcer of right foot Encounter for wound care Onychomycosis Nail dystrophy Overweight (BMI 25.0-29.9) Left foot pain Hammertoes of both feet Diabetes mellitus with diabetic neuropathy, with long-term current use of insulin Amputation of one or more toes Equinus contracture of left ankle Gangrene of toe of left foot Diabetic foot infection Cellulitis and abscess of foot Infected surgical wound Dyspnea CAD, multiple vessel Hyperlipidemia Hypertension IDDM (insulin dependent diabetes mellitus) Non-STEMI (non-ST elevated myocardial infarction) Surgical History History of nasal septoplasty Status post nasal septoplasty History of amputation of toe History of amputation of toe Hx of cataract surgery Status post foot surgery History of amputation of right great toe S/P CABG x 6 Family History Mother Heart attack Social History Smoking Status: Former smoker tobacco type: cigarettes packs per day: 3 years smoked: 25 smoking status stop date: 11/02/2001 how long ago did patient quit smokin second hand exposure: Yes alcohol intake: former substance use type: denies use current occupational status: disabled Travel in the last 8 weeks: None household members: none housing: apartment caffeine: Yes ROS Obtained: Yes Systems reviewed as appropriate & no additional complaints except as documented Physical Exam General General appearance: alert and in no apparent distress Chest Chest inspection: Present normal inspection and symmetric chest wall rise Respiratory Respiratory exam: Present normal lung sounds bilaterally; Absent respiratory distress Cardiovascular Cardiovascular exam: Present regular rate and normal rhythm Abdominal Exam Abdominal exam: Present soft; Absent tenderness Extremities Exam Extremities exam: Present normal inspection (With 1-2+ bilateral lower extremity pitting edema) Neurological Exam Neurological exam: Present alert and oriented X3 Skin Skin exam: Present warm and dry HEART Score HEART Score HEART Score assessment performed?: Yes History (anamnesis): Slightly suspicious ECG: Non-specific disturbance Age: >65 years Risk factors: Atherosclerosis history Troponin: </= normal limit HEART Score: 5 Critical Care Critical Care Time Critical Care Time: No Medical Decision Making Medical Records Medical records reviewed: Yes I reviewed the patient's medical records. Jose Inquiry Pt receiving controlled substance: No Jose was queried for this patient: No Vital Signs Vital Signs: 05/29/24 20:26 05/29/24 21:01 05/29/24 21:30 Temperature 98.4 F Temperature Source Oral Pulse Rate 73 72 Pulse Rate [Right Brachial] 80 Respiratory Rate 16 16 16 Blood Pressure 157/78 H 157/77 H Blood Pressure [Right Arm] 213/88 H Blood Pressure Mean [Right Arm] 129 Blood Pressure Source [Right Arm] Automatic Cuff Blood Pressure Position [Right Arm] Sitting 02 Sat by Pulse Oximetry 98 98 98 Oxygen Delivery Method Room Air Lab Data Lab results reviewed: Yes I reviewed the patient's lab results. Labs: Lab Results 05/29/24 20:30: WBC 4.1 L, RBC 4.35 L, Hgb 11.2 L, Hct 35.9 L, MCV 82.5, MCH 25.8 L, MCHC 31.3 L, RDW 17.7 H, Plt Count 101 L, MPV 10.8 H, Neut % (Auto) 67.5, Lymph % (Auto) 24.0, [place] % (Auto) 6.1, Eos % (Auto) 1.8, Baso % (Auto) 0.6, Neut # (Auto) 2.8, Lymph # (Auto) 1.0, [place] # (Auto) 0.3, Eos # (Auto) 0.1, Baso # (Auto) 0.0, Sodium 140, Potassium 4.9, Chloride 107, Carbon Dioxide 25, Anion Gap 12.9, BUN 20, Creatinine 1.10, Estimated Creat Clear 72, Estimated GFR 66, Est GFR ( Amer) 80, Glucose 274 H, Calcium 9.3, Total Bilirubin 0.6, AST 70 H, ALT 54, Alkaline Phosphatase 135 H, Troponin I 0.01, NT-Pro-B Natriuret Pep 236 H, Total Protein 7.9, Albumin 4.2, Globulin 3.7 H, Albumin/Globulin Ratio 1.1 05/29/24 20:30 05/29/24 20:30 Response Orders (Tests/Meds): ORDERS Category Date Time Status Chest XR 2 view (NOT portable) [XR chest 2V] Stat Exams 05/29/24 20:33 Completed BNP [NT Pro Brain Natriuretic Pep.] Stat Lab 05/29/24 20:30 Completed Complete Blood Count Auto Diff Stat Lab 05/29/24 20:30 Completed Comprehensive Metabolic Panel Stat Lab 05/29/24 20:30 Completed Troponin I Q3H Lab 05/29/24 23:45 Ordered Troponin I Q3H Lab 05/30/24 02:45 Ordered Troponin I Stat Lab 05/29/24 20:30 Completed ECG Data Tracing #1: Attestation: I reviewed this ECG and interpreted as documented below: ECG Narrative: EKG showing sinus rhythm at a rate of 79, normal intervals, some flattening of ST segment in leads II, III and aVF ECG initial impression date: 05/29/24 ECG initial impression time: 20:32 ECG normal with no acute: arrhythmias, ischemia, conduction abnormalities, chamber hypertrophy MDM Narrative Medical Decision Narrative: Patient is a 68-year-old male with past medical history CAD status post bypass, CHF on Lasix, diabetes presenting with shortness of breath. He states that he has been short of breath over the past week and is not different from when he was seen previously. He denies any pain including no chest pain. He has been taking his Lasix and urinating appropriately. He does take aspirin daily. He is hemodynamically stable in no acute distress, no oxygen requirement and he does not normally wear oxygen. He does not have appreciable crackles on exam, does have some bilateral lower extremity pitting edema but clinically does not appear significantly fluid overloaded. Will obtain labs for further evaluation. EKG as documented above without acute ischemia or infarction, CBC nonactionable but notably platelet count 101, no acute need for transfusion at this time, BNP is 236, CMP nonactionable, chest xray showing no acute process, troponin negative at 0.01. Again he has no chest pain and his shortness of breath is actually resolved on reevaluation. Given recent workup including delta troponin 1 week ago that was negative and today's workup feel no need for delta troponin. Did discuss his symptoms and feel he would benefit from follow-up and perhaps further adjustment of medications by his PCP and patient agrees and is agreeable with this plan. Discharged in stable condition.
[2024-05-29 22:29] VITALS: BP 152/72; PULSE 77; RESP 18; TEMP 36.9; O2SAT 99
== END 2024-05-29 22:30 | disposition home or self-care (01) ==
PROVIDERS: Emergency Provider Emergency Medicine; PCP Family Medicine
DX: R06.02 Shortness of breath (principal); I11.0 Hypertensive heart disease with heart failure; I50.9 Heart failure, unspecified; E11.40 Type 2 diabetes mellitus with diabetic neuropathy, unspecified; J44.9 Chronic obstructive pulmonary disease, unspecified; Z87.891 Personal history of nicotine dependence; Z79.4 Long term (current) use of insulin; Z79.84 Long term (current) use of oral hypoglycemic drugs; Z79.85 Long-term (current) use of injectable non-insulin antidiabetic drugs; Z86.79 Personal history of other diseases of the circulatory system; Z95.1 Presence of aortocoronary bypass graft
CPT/HCPCS: 71046; 80053; 83880; 84484; 85025; 93005; 99284

== ENCOUNTER 2024-06-17 22:07 | Emergency (ER) | payer MEDICARE, SELFPAY ==
[2024-06-17 22:09] VITALS: BP 154/77; PULSE 79; RESP 16; TEMP 36.7; O2SAT 98; BMI 28.8
--- NOTE | 2024-06-17 22:22 | XR_ITS ---
PROCEDURE INFORMATION: Exam: XR Chest Exam date and time: 06/17/2024 10:20 PM Age: 68 years old Clinical indication: Other: Back pain TECHNIQUE: Imaging protocol: Radiologic exam of the chest. Views: 2 views. COMPARISON: CR XR CHEST 2V 05/29/2024 8:37 PM FINDINGS: Lungs: Lungs are hyperinflated. Clear parenchyma. Pleural spaces: No pleural effusion. No pneumothorax. Heart/Mediastinum: Heart size is normal. Vasculature: Mediastinal surgical clips and vascular markers suggest prior myocardial revascularization. Calcified aorta without dilation. Bones/joints: Age appropriate. IMPRESSION: Hyperinflated but clear lungs. No other acute cardiopulmonary abnormality.
--- NOTE | 2024-06-17 23:16 | ED_ITS ---
Discharge Plan Disposition Patient Disposition: Home, Self-Care Prescriptions Prescriptions: New methocarbamol 500 mg tablet 500 mg PO Q6H PRN (Reason: pain) Qty: 30 0RF lidocaine 5 % adhesive patch,medicated 1 patch topical DAILY PRN (Reason: pain) Qty: 30 0RF Rx Instructions: leave on most painful area for up to 12 hrs No Action (DME) lancets [FreeStyle Lancets] 28 gauge misc See Rx Instructions .ROUTE .MEDSUPPLY Qty: 100 Rx Instructions: As directed Cosentyx UnoReady Pen 300 mg/2 mL (150 mg/mL) pen injector 300 mg SQ (DME) pen needle, diabetic [Easy Comfort Pen [place]] 31 gauge x 3/16 needle See Rx Instructions .ROUTE .MEDSUPPLY Qty: 50 Rx Instructions: As directed hydrocodone-acetaminophen 10-325 mg tablet PO [place]pe Saline 0.65 % aerosol,spray 2 spray intranasal QIDP PRN (Reason: dry nasal passages) Qty: 50 0RF diclofenac sodium [Voltaren Arthritis Pain] 1 % gel 2 g topical QID Qty: 100 3RF Rx Instructions: apply to single elbow, wrist or hand; for hand includes palm/fingers/back of hand loratadine [Claritin] 10 mg tablet 10 mg PO DAILY Qty: 30 3RF doxycycline hyclate 100 mg capsule 100 mg PO BID 10 Days Qty: 20 0RF albuterol sulfate 90 mcg/actuation HFA aerosol inhaler 2 inh inhalation Q6HP PRN (Reason: shortness of breath or wheezing) Qty: 6.7 2RF (DME) blood-glucose meter [OneTouch Ultra2 Meter] Misc See Rx Instructions .Route Qty: 1 0RF Rx Instructions: As directed (DME) OneTouch Ultra Test Strip See Rx Instructions .Route Qty: 100 2RF Rx Instructions: As directed (DME) lancets [OneTouch UltraSoft 2 Lancet] 30 gauge misc See Rx Instructions .Route Qty: 100 2RF Rx Instructions: As directed diclofenac sodium 50 mg tablet,delayed release (DR/EC) 50 mg PO Q12H PRN (Reason: pain) Qty: 90 3RF potassium chloride 20 mEq tablet extended release 20 meq PO DAILY Qty: 30 2RF omeprazole 20 mg capsule,delayed release(DR/EC) See Rx Instructions .ROUTE .COMPLEX Qty: 180 0RF Dose Instruction: TAKE 1 CAPSULE BY MOUTH TWICE A DAY FOR GERD FOR 90 DAYS Rx Instructions: TAKE 1 CAPSULE BY MOUTH TWICE A DAY FOR GERD FOR 90 DAYS metoprolol tartrate 25 mg tablet See Rx Instructions .ROUTE .COMPLEX Qty: 60 1RF Dose Instruction: TAKE 1 TABLET BY MOUTH TWICE DAILY FOR BLOOD PRESSURE Rx Instructions: TAKE 1 TABLET BY MOUTH TWICE DAILY FOR BLOOD PRESSURE insulin lispro protamin-lispro [Humalog Mix 75-25 KwikPen] 100 unit/mL (75-25) insulin pen 60 unit SQ BID Qty: 30 5RF Rx Instructions: 66 units units in the morning, 60 units QHS metformin 1,000 mg tablet 1,000 mg PO BID 30 Days Qty: 60 2RF ipratropium bromide 0.02 % solution 2.5 ml inhalation Q12H gabapentin 800 mg tablet 800 mg PO QID atorvastatin 20 mg tablet 20 mg PO HS furosemide 40 mg tablet 40 mg PO DAILY lisinopril 5 mg tablet 5 mg PO DAILY Referrals Follow up/Referrals: Silvio Mccain MD [Primary Care Provider] - See instructions Activity Restrictions/Add. Instructions Additional Instructions/Restrictions: Please follow-up with your primary care provider. Please return to the emergency department if you develop any new or worsening symptoms or become concerned for your health. Clinical Impressions Clinical Impression: Sinus congestion, Cough Print Language Print Language: Chinese Discharge ED Provider: Randall Linda General Adult HPI General Chief complaint: Upper Respiratory Infection Stated complaint: lower back pain, soa, de leon, cough congestion Time Seen by Provider: 06/17/24 23:14 Mode of Arrival: Ambulatory Source of Information: Patient Limitations: No Limitations Description of Symptoms (Recalled from ER Triage Doc. by RN): Pt states he believes he has PNA, went to his pcp today because his back hurts from coughing and he has been congested for 1 week. Pt given Doxycycline today. History of Present Illness HPI narrative: 68-year-old male presents for multiple complaints. He reports that he saw his PCP today and was given a prescription for doxycycline for congestion. He reports that he has a bit of a headache now and indicates the area of his frontal sinus, he also reports feeling congested in his throat, with increased cough but he is not coughing anything up. He denies any significant shortness of breath, fever, chest pain, abdominal pain. Does report intermittent right- sided flank pain that has been ongoing for the last 3 weeks or so. Currently mild. Worse with coughing and with moving around. Reports some increased urination but denies any hematuria or dysuria. Related Data Home Medications ?Medication ?Instructions ?Recorded ?Confirmed lancets 28 gauge (FreeStyle #100 ea 04/01/22 06/17/24 Lancets) pen needle, diabetic 31 gauge x #50 ea 08/20/22 06/17/2401/15 (Easy Comfort Pen [place]) gabapentin 800 mg tablet 800 mg PO QID Pain 07/02/23 06/17/24 ipratropium bromide 0.02 % 2.5 ml inhalation Q12H Breathing 07/02/23 06/17/24 solution for inhalation Problems atorvastatin 20 mg tablet 20 mg PO HS Cholesterol 11/08/23 06/17/24 furosemide 40 mg tablet 40 mg PO DAILY Fluid 11/08/23 06/17/24 lisinopril 5 mg tablet 5 mg PO DAILY High Blood Pressure 11/08/23 06/17/24 hydrocodone 10 mg-acetaminophen tab PO 02/08/24 06/17/24 325 mg tablet secukinumab 300 mg/2 mL (150 300 mg SQ 04/12/24 06/17/24 mg/mL) subcutaneous pen injector (Cosentyx UnoReady Pen) Previous Rx's ?Medication ?Instructions ?Recorded blood sugar diagnostic (OneTouch #100 ea 11/18/23 Ultra Test strips) blood-glucose meter (OneTouch #1 ea 11/18/23 Ultra2 Meter) lancets 30 gauge (OneTouch #100 ea 11/18/23 UltraSoft 2 Lancet) diclofenac sodium 50 mg 50 mg PO Q12H PRN pain #90 tabs 01/11/24 tablet,delayed release sodium chloride 0.65 % nasal spray 2 spray intranasal QIDP PRN dry 02/08/24 aerosol (Lampe Saline) nasal passages #50 mL diclofenac sodium 1 % topical gel 2 g topical QID #100 grams 02/09/24 (Voltaren Arthritis Pain) loratadine 10 mg tablet (Claritin) 10 mg PO DAILY Allergy Symptoms 04/07/24 #30 tabs omeprazole 20 mg capsule,delayed See Rx Instructions .Route 05/11/24 release .COMPLEX #180 caps potassium chloride 20 mEq 20 meq PO DAILY #30 tabs 07/10/24 tablet,extended release metoprolol tartrate 25 mg tablet See Rx Instructions .Route 05/19/24 .COMPLEX #60 tabs insulin lispro protamine-lispro 60 unit (0.6 mL) SQ BID Diabetes 05/30/24 100 unit/mL (75-25) subcutaneous #30 mL pen (Humalog Mix 75-25 KwikPen) metformin 1,000 mg tablet 1,000 mg PO BID Diabetes 30 days 06/13/24 #60 tabs albuterol sulfate 90 mcg/actuation 2 inh inhalation Q6HP PRN 06/17/24 aerosol inhaler shortness of breath or wheezing #6.7 grams doxycycline hyclate 100 mg capsule 100 mg PO BID 10 days #20 caps 06/17/24 lidocaine 5 % topical patch 1 patch topical DAILY PRN pain #30 06/18/24 ea methocarbamol 500 mg tablet 500 mg PO Q6H PRN pain #30 tabs 06/18/24 Allergies Allergy/AdvReac Type Severity Reaction Status Date / Time No Known Allergies Allergy Verified 06/17/24 11:22 [facility] Disclaimer: The information contained in this section may have been updated after the patient was seen, as this information can be updated by other users. Medical History Sinusitis Splenomegaly Sepsis Colitis Left shoulder pain Edema Abnormal electrocardiogram [ECG] [EKG] Sinus mucosal thickening Diastasis recti Sunburn Deviated nasal septum Chronic sinusitis Incurvated nail COPD (chronic obstructive pulmonary disease) Shoulder pain, bilateral TMJ arthralgia Cervical paraspinous muscle spasm Pharyngitis Acute bronchitis Otitis externa Cerumen impaction Acute sinusitis Erectile dysfunction Diabetic foot Callus of foot Muscle strain Rib pain on right side Bruising Pain of right upper arm Pain in right shoulder Neck Pain Callus Psoriasis History of diabetes mellitus, type II History of hyperlipidemia History of hypertension Cellulitis of left foot Carpal tunnel syndrome of right wrist Cellulitis VRE (vancomycin resistant enterococcus) culture positive Gas gangrene of foot Foot abscess, right Severe sepsis with acute organ dysfunction Cellulitis of right foot Diabetic ulcer of left foot Diabetic foot Type 2 diabetes mellitus with diabetic polyneuropathy, with long-term current use of insulin Amputation of toe of left foot Other acute osteomyelitis, right ankle and foot Diabetic ulcer of toe of right foot associated with type 2 diabetes mellitus, limited to breakdown of skin Diabetes mellitus Foot osteomyelitis, right Pre-ulcerative calluses Diabetic infection of right foot Diabetic ulcer of right foot Encounter for wound care Onychomycosis Nail dystrophy Overweight (BMI 25.0-29.9) Left foot pain Hammertoes of both feet Diabetes mellitus with diabetic neuropathy, with long-term current use of insulin Amputation of one or more toes Equinus contracture of left ankle Gangrene of toe of left foot Diabetic foot infection Cellulitis and abscess of foot Infected surgical wound Dyspnea CAD, multiple vessel Hyperlipidemia Hypertension IDDM (insulin dependent diabetes mellitus) Non-STEMI (non-ST elevated myocardial infarction) Surgical History History of nasal septoplasty Status post nasal septoplasty History of amputation of toe History of amputation of toe Hx of cataract surgery Status post foot surgery History of amputation of right great toe S/P CABG x 6 Family History Mother Heart attack Social History Smoking Status: Never smoker years smoked: 25 smoking status stop date: 11/02/2001 how long ago did patient quit smokin second hand exposure: Yes alcohol intake: former substance use type: denies use current occupational status: disabled Travel in the last 8 weeks: None household members: none housing: apartment caffeine: Yes ROS Obtained: Yes All systems reviewed & no additional complaints except as documented Physical Exam General General appearance: alert and in no apparent distress Head Head exam: atraumatic and normocephalic Eye Eye exam: Present normal appearance, PERRL and EOMI ENT ENT exam: Present normal oropharynx and normal external ear exam Neck Neck exam: Present normal inspection and full ROM Chest Chest inspection: Present normal inspection and symmetric chest wall rise; Absent tenderness Respiratory Respiratory exam: Present wheezes (Faint wheezes noted); Absent respiratory distress Cardiovascular Cardiovascular exam: Present regular rate and normal rhythm Abdominal Exam Abdominal exam: Present soft; Absent distention, tenderness or guarding Extremities Exam Extremities exam: Present normal inspection; Absent edema or joint swelling Back Exam Back exam: Present normal inspection; Absent tenderness Neurological Exam Neurological exam: Present alert and oriented X3; Absent motor sensory deficit Psychiatric Psychiatric exam: Present normal affect and normal mood Skin Skin exam: Present warm, dry and normal color Lymphatic Lymphatic Findings: no adenopathy Medical Decision Making Medical Records Medical records reviewed: Yes I reviewed the patient's medical records. Jose Inquiry Pt receiving controlled substance: No Jose was queried for this patient: No Vital Signs: 06/17/24 22:09 06/18/24 01:09 Temperature 98.1 F 98.2 F Temperature Source Oral Oral Pulse Rate 70 Pulse Rate [Left] 79 Respiratory Rate 16 20 Blood Pressure 122/63 Blood Pressure [Right Arm] 154/77 H Blood Pressure Mean [Right Arm] 102 Blood Pressure Source [Right Arm] Automatic Cuff Blood Pressure Position [Right Arm] Sitting 02 Sat by Pulse Oximetry 98 Oxygen Delivery Method Room Air Room Air Lab Data Lab results reviewed: Yes I reviewed the patient's lab results. Lab Results 06/17/24 22:43: Urine Color Yellow, Urine Appearance Clear, Urine pH 6.0, Ur Specific [place] 1.020, Urine Protein Negative, Urine Glucose (UA) 3+, Urine Ketones Negative, Urine Blood Negative, Urine Nitrate Negative, Urine Bilirubin Negative, Urine Urobilinogen 0.2, Ur Leukocyte Esterase Negative, Urine RBC None, Urine WBC None, Ur Squamous Epith Cells Occasional, Urine Bacteria Trace 06/18/24 00:15: WBC 3.7 L, RBC 3.69 L, Hgb 9.5 L, Hct 31.1 L, MCV 84.3, MCH 25.8 L, MCHC 30.6 L, RDW 17.5, Plt Count 91 L, MPV 10.3, Neut % (Auto) 62.1, Lymph % (Auto) 25.9, [place] % (Auto) 8.5, Eos % (Auto) 2.8, Baso % (Auto) 0.5, Neut # (Auto) 2.3, Lymph # (Auto) 1.0, [place] # (Auto) 0.3, Eos # (Auto) 0.1, Baso # (Auto) 0.0, Sodium 137, Potassium 4.7, Chloride 103, Carbon Dioxide 29, Anion Gap 9.7, BUN 18, Creatinine 0.90, Estimated Creat Clear 82, Estimated GFR 84, Est GFR ( Amer) 101, Glucose 284 H, Calcium 9.1, Total Bilirubin 0.5, AST 46, ALT 41, Alkaline Phosphatase 133 H, Total Protein 7.0, Albumin 3.4 L, G lobulin 3.6 H, Albumin/Globulin Ratio 0.9 L 06/18/24 00:15 06/18/24 00:15 Orders (Tests/Meds): ED MEDICATIONS Discontinued Medications Generic Name Dose Route Start Last Admin Trade Name Cici PRN Reason Stop Dose Admin Acetaminophen 1,000 mg 06/18/24 00:10 06/18/24 00:24 Acetaminophen 500mg Tab PO 06/18/24 00:11 1,000 mg ONCE ONE Administration Prochlorperazine Edisylate 10 mg 06/18/24 00:10 06/18/24 00:23 Prochlorperazine 10mg/2ml Vial IV 06/18/24 00:11 10 mg ONCE ONE Administration ORDERS Category Date Time Status Chest XR 2 view (NOT portable) [XR chest 2V] Stat Exams 06/17/24 22:22 Completed CBC w/Auto Diff [Complete Blood Count Auto Diff] Stat Lab 06/17/24 23:30 Completed CMP [Comprehensive Metabolic Panel] Stat Lab 06/17/24 23:30 Completed UA [Urinalysis and Microscopic] Stat Lab 06/17/24 22:43 Completed Medical Decision Narrative: 68-year-old male with history of COPD, diabetes presents for multiple complaints including sinus congestion and frontal headache, increased cough but feels like he cannot cough it up, intermittent right-sided pain for the last couple weeks. History was obtained via interactive discussion with patient. On arrival, patient is [afebrile, hemodynamically stable, satting appropriately, alert, oriented x4, GCS 15], moving all extremities spontaneously. Full physical exam performed and significant for sinus congestion on exam, no abdominal tenderness, no significant flank tenderness, clear lungs bilaterally with the exception of faint wheezing. Differential includes but is not limited to URI, pneumonia, sinusitis, UTI, pyelonephritis, renal lithiasis,. Patient was given Tylenol, Compazine for symptomatic management and correction of underlying abnormalities. Workup initiated including CBC CMP urinalysis chest x-ray. On re-evaluation, patient reports symptomatic resolution of his headache Laboratory workup independently interpreted by me and significant for stable mild pancytopenia, no significant electrolyte derangement, mild hyperglycemia, urinalysis without WBCs or RBCs to suggest infection or kidney stone.. Imaging independently interpreted by me and significant for mildly hyperinflated lungs, no focal opacity. See radiology read for full review of final results. CT of the chest abdomen and pelvis was considered, but deemed unnecessary due to history and exam. Given patient history, exam and workup, patient's presentation most likely represents upper respiratory infection with sinus congestion. Patient does not appear to have acute sinusitis at this time. No indication in the urine of a renal pathology. Patient's intermittent pain may be related to his increased cough recently. No obvious pneumonia on chest x-ray. Interactive discussion with patient regarding his presentation. Patient was given return precautions. He was discharged with prescription for Robaxin and lidocaine patches and instructions regarding [id number] pain management. Procedures Risk/Benefits of Procedure(s) Were Explained: Yes Critical Care Critical Care Time Critical Care Time: No
[2024-06-17 23:39] LABS: Microscopic, Urine URINE MICROSCOPIC (MICROSCOPIC)
[2024-06-17 23:42] LABS: Appearance,Urine CLEAR (Clear); Bilirubin,Urine Negative (Negative); Blood, Urine Negative (Negative); Color,Urine YELLOW (Yellow); Glucose,Urine (UA) 3+ (Negative); Ketones,Urine Negative (Negative); Leukocyte Esterase,Urine Negative (Negative); Nitrate,Urine Negative (Negative); Protein,Urine Negative (Negative); Urobilinogen,Urine 0.2 EU/dl (0.2)
[2024-06-17 23:55] LABS: Bacteria,Urine Trace /lpf; Squamous Epithelial Cell,Urine Occasional #/hpf (0-5)
[2024-06-18 00:23] LABS: Basophils % 0.5 % (0.1-2.0); Eosinophils # 0.1 K/mm3 (0.0-0.4); Eosinophils % 2.8 % (0.1-12.0); Hematocrit 31.1 % (42.0-52.0); Hemoglobin 9.5 g/dL (14.1-18.0); Lymphocytes % 25.9 % (10-50); Mean Corpuscular HGB Conc 30.6 g/dL (31.8-35.4); Mean Corpuscular Hemoglobin 25.8 pg (27.0-31.2); Mean Corpuscular Volume 84.3 fl (80-94); Mean Platelet Volume 10.3 fl (7.4-10.4); Monocytes # 0.3 K/mm3 (0.1-1.0); Monocytes % 8.5 % (1.7-9.3); Neutrophils # 2.3 K/mm3 (1.8-7.8); Neutrophils % 62.1 % (37.0-80.0); Platelet Count 91 K/mm3 (142-424); Red Blood Count 3.69 M/mm3 (4.60-6.20); Red Cell Distribution Width 17.5 % (11.5-17.5); White Blood Count 3.7 K/mm3 (4.8-10.8)
[2024-06-18] MEDS: PROCHLORPERAZINE 10MG/2ML VIAL 10 MG IV (00:23)
[2024-06-18] MEDS: ACETAMINOPHEN 500MG TAB 1000 MG PO (00:24)
[2024-06-18 00:43] LABS: Alanine Aminotransferase 41 U/L (12-78); Albumin Level 3.4 g/dl (3.5-5.0); Albumin/Globulin Ratio 0.9 (1.1-1.8); Alkaline Phosphatase 133 U/L (38-126); Anion Gap 9.7 mEq/L (5-15); Aspartate Amino Transferase 46 U/L (17-59); Bilirubin,Total 0.5 mg/dl (0.2-1.3); Blood Urea Nitrogen 18 mg/dl (9-20); Calcium 9.1 mg/dl (8.4-10.2); Carbon Dioxide 29 mmol/L (22.0-30.0); Chloride 103 mmol/L (98-107); Creatinine Clearance Estimated 82 mL/min (50-200); Estimated Glomerular Filt Rate 84 ml/min (>60); GFR (African American) 101 ML/MIN (>60); Globulin 3.6 g/dL (1.3-3.2); Glucose 284 mg/dl (74-100); Potassium 4.7 mmoL/L (3.5-5.1); Sodium 137 mmol/L (136-145)
[2024-06-18 01:09] VITALS: BP 122/63; PULSE 70; RESP 20; TEMP 36.8; O2SAT 97
== END 2024-06-18 01:18 | disposition home or self-care (01) ==
PROVIDERS: Emergency Provider Emergency Medicine; PCP Family Medicine
DX: R05.9 Cough, unspecified (principal); R09.81 Nasal congestion; R51.9 Headache, unspecified; R10.813 Right lower quadrant abdominal tenderness; M54.59 Other low back pain; J44.9 Chronic obstructive pulmonary disease, unspecified; E11.42 Type 2 diabetes mellitus with diabetic polyneuropathy; E78.5 Hyperlipidemia, unspecified; I10 Essential (primary) hypertension; Z79.4 Long term (current) use of insulin; Z79.84 Long term (current) use of oral hypoglycemic drugs
CPT/HCPCS: 71046; 80053; 81001; 85025; 96374; 99284; J0780

== ENCOUNTER 2024-09-02 10:42 | Outpatient (CLI) | payer MEDICARE, SELFPAY ==
[2024-09-02 17:20] LABS: Creatinine,Urine Random 31 mg/dL (Not Estab.); Microalbumin/Creatinine Ratio 31.9
== END 2024-09-02 23:59 | disposition home or self-care (01) ==
LOC: LAB.DROPOF 09-05 10:42
PROVIDERS: PCP Family Medicine; Visit Provider Family Medicine
DX: E11.9 Type 2 diabetes mellitus without complications (principal); Z79.84 Long term (current) use of oral hypoglycemic drugs; Z79.4 Long term (current) use of insulin
CPT/HCPCS: 82043; 82570

== ENCOUNTER 2024-09-20 05:39 | Emergency (ER) | payer MEDICARE, SELFPAY ==
--- NOTE | 2024-09-20 05:43 | ED_ITS ---
Discharge Plan Prescriptions Prescriptions: New fluconazole 200 mg tablet 200 mg PO WEEKLY 28 Days Qty: 4 0RF clotrimazole 1 % cream 1 applic topical BID 14 Days Qty: 90 0RF No Action (DME) lancets [FreeStyle Lancets] 28 gauge misc See Rx Instructions .ROUTE .MEDSUPPLY Qty: 100 Rx Instructions: As directed Cosentyx UnoReady Pen 300 mg/2 mL (150 mg/mL) pen injector 300 mg SQ hydrocodone-acetaminophen 10-325 mg tablet PO [place]ver Saline 0.65 % aerosol,spray 2 spray intranasal QIDP PRN (Reason: dry nasal passages) Qty: 50 0RF diclofenac sodium [Voltaren Arthritis Pain] 1 % gel 2 g topical QID Qty: 100 3RF Rx Instructions: apply to single elbow, wrist or hand; for hand includes palm/fingers/back of hand insulin glargine U-300 conc [Toujeo Max U-300 SoloStar] 300 unit/mL (3 mL) insulin pen 130 unit SQ DAILY Qty: 24 2RF (DME) blood-glucose meter [OneTouch Ultra2 Meter] Misc See Rx Instructions .Route Qty: 1 0RF Rx Instructions: As directed (DME) OneTouch Ultra Test Strip See Rx Instructions .Route Qty: 100 2RF Rx Instructions: As directed (DME) lancets [OneTouch UltraSoft 2 Lancet] 30 gauge misc See Rx Instructions .Route Qty: 100 2RF Rx Instructions: As directed diclofenac sodium 50 mg tablet,delayed release (DR/EC) 50 mg PO Q12H PRN (Reason: pain) Qty: 90 3RF (DME) pen needle, diabetic [Easy Comfort Pen [place]] 31 gauge x 3/16 needle See Rx Instructions .ROUTE .MEDSUPPLY Qty: 50 4RF Rx Instructions: As directed (DME) blood-glucose meter [True Metrix Air Glucose Meter] Misc See Rx Instructions .Route Qty: 1 0RF Rx Instructions: As directed (DME) True Metrix Glucose Test Strip Strip See Rx Instructions .Route Qty: 100 3RF Rx Instructions: Test glucose TID (DME) lancets [TRUEplus Lancets] 33 gauge misc See Rx Instructions .Route Qty: 100 3RF Rx Instructions: As directed metoprolol tartrate 25 mg tablet See Rx Instructions .ROUTE .COMPLEX Qty: 60 1RF Dose Instruction: TAKE 1 TABLET BY MOUTH TWICE DAILY FOR BLOOD PRESSURE Rx Instructions: TAKE 1 TABLET BY MOUTH TWICE DAILY FOR BLOOD PRESSURE omeprazole 20 mg capsule,delayed release(DR/EC) See Rx Instructions .ROUTE .COMPLEX Qty: 180 0RF Dose Instruction: TAKE 1 CAPSULE BY MOUTH TWICE A DAY FOR GERD FOR 90 DAYS Rx Instructions: TAKE 1 CAPSULE BY MOUTH TWICE A DAY FOR GERD FOR 90 DAYS atorvastatin 20 mg tablet 20 mg PO HS 90 Days Qty: 90 0RF loratadine 10 mg tablet See Rx Instructions .ROUTE .COMPLEX Qty: 90 3RF Dose Instruction: TAKE ONE TABLET BY MOUTH ONCE A DAY FOR ALLERGY SYMPTOMS Rx Instructions: TAKE ONE TABLET BY MOUTH ONCE A DAY FOR ALLERGY SYMPTOMS furosemide 40 mg tablet 40 mg PO DAILY 90 Days Qty: 90 0RF metformin 1,000 mg tablet 1,000 mg PO BID 30 Days Qty: 60 2RF potassium chloride 20 mEq tablet extended release 20 meq PO DAILY Qty: 30 2RF albuterol sulfate 90 mcg/actuation HFA aerosol inhaler 2 inh inhalation Q6HP PRN (Reason: shortness of breath or wheezing) Qty: 6.7 2RF methocarbamol 500 mg tablet 500 mg PO Q6H PRN (Reason: pain) Qty: 30 0RF lidocaine 5 % adhesive patch,medicated 1 patch topical DAILY PRN (Reason: pain) Qty: 30 0RF Rx Instructions: leave on most painful area for up to 12 hrs ipratropium bromide 0.02 % solution 2.5 ml inhalation Q12H gabapentin 800 mg tablet 800 mg PO QID lisinopril 5 mg tablet 5 mg PO DAILY Referrals Follow up/Referrals: Silvio Mccain MD [Primary Care Provider] - See instructions Activity Restrictions/Add. Instructions Additional Instructions/Restrictions: Please take antifungal medication and use creams as prescribed for treatment of possible yeast infection. Please follow-up with your primary care provider. Please return to the emergency department if you develop any new or worsening symptoms or become concerned for your health. Clinical Impressions Clinical Impression: Sinus congestion, Tinea corporis Print Language Print Language: Amharic Discharge ED Provider: Randall [facility] Adult HPI General Chief complaint: Upper Respiratory Infection Stated complaint: trouble breathing, lesion on stomach Time Seen by Provider: 09/20/24 05:43 History of Present Illness HPI narrative: 69-year-old male with extensive past medical history presents with multiple complaints. He reports that he has had some sinus congestion for the last week or so. Denies fever or purulent drainage. Reports he symptoms gets short of breath because his nose is congested but denies productive cough. He also comp lains about some redness on his abdomen that has been present for a long time . He reports that he is use a lot of [id number] medications therapies but with no success. Related Data Home Medications ?Medication ?Instructions ?Recorded ?Confirmed lancets 28 gauge (FreeStyle #100 ea 04/01/22 09/01/24 Lancets) gabapentin 800 mg tablet 800 mg PO QID Pain 07/02/23 09/01/24 ipratropium bromide 0.02 % 2.5 ml inhalation Q12H Breathing 07/02/23 09/01/24 solution for inhalation Problems lisinopril 5 mg tablet 5 mg PO DAILY High Blood Pressure 11/08/23 09/01/24 hydrocodone 10 mg-acetaminophen tab PO 02/08/24 09/01/24 325 mg tablet secukinumab 300 mg/2 mL (150 300 mg SQ 04/12/24 09/01/24 mg/mL) subcutaneous pen injector (Cosentyx UnoReady Pen) Previous Rx's ?Medication ?Instructions ?Recorded blood sugar diagnostic (OneTouch #100 ea 11/18/23 Ultra Test strips) blood-glucose meter (OneTouch #1 ea 11/18/23 Ultra2 Meter) lancets 30 gauge (OneTouch #100 ea 11/18/23 UltraSoft 2 Lancet) diclofenac sodium 50 mg 50 mg PO Q12H PRN pain #90 tabs 01/11/24 tablet,delayed release sodium chloride 0.65 % nasal spray 2 spray intranasal QIDP PRN dry 02/08/24 aerosol (Culver Saline) nasal passages #50 mL diclofenac sodium 1 % topical gel 2 g topical QID #100 grams 02/09/24 (Voltaren Arthritis Pain) lidocaine 5 % topical patch 1 patch topical DAILY PRN pain #30 06/18/24 ea methocarbamol 500 mg tablet 500 mg PO Q6H PRN pain #30 tabs 06/18/24 pen needle, diabetic 31 gauge x #50 ea 06/29/2401/15 (Easy Comfort Pen [place]) blood sugar diagnostic (True #100 ea 07/01/24 Metrix Glucose Test Strip) blood-glucose meter (True Metrix #1 ea 07/01/24 Air Glucose Meter) lancets 33 gauge (TRUEplus Lancets) #100 ea 07/01/24 metoprolol tartrate 25 mg tablet See Rx Instructions .Route 07/11/24 .COMPLEX #60 tabs omeprazole 20 mg capsule,delayed See Rx Instructions .Route 07/11/24 release .COMPLEX #180 caps atorvastatin 20 mg tablet 20 mg PO HS Cholesterol 90 days 07/19/24 #90 tabs loratadine 10 mg tablet See Rx Instructions .Route 08/15/24 .COMPLEX #90 tabs furosemide 40 mg tablet 40 mg PO DAILY Fluid 90 days #90 08/26/24 tabs insulin glargine U-300 conc 300 130 unit (0.4333 mL) SQ DAILY 09/01/24 unit/mL (3 mL) subcutaneous pen Diabetes #24 mL (Toujeo Max U-300 SoloStar) albuterol sulfate 90 mcg/actuation 2 inh inhalation Q6HP PRN 09/13/24 aerosol inhaler shortness of breath or wheezing #6.7 grams metformin 1,000 mg tablet 1,000 mg PO BID Diabetes 30 days 09/13/24 #60 tabs potassium chloride 20 mEq 20 meq PO DAILY #30 tabs 09/13/24 tablet,extended release clotrimazole 1 % topical cream 1 applic topical BID 2 weeks #90 09/20/24 grams fluconazole 200 mg tablet 200 mg PO WEEKLY 4 weeks #4 tabs 09/20/24 Allergies Allergy/AdvReac Type Severity Reaction Status Date / Time No Known Allergies Allergy Verified 09/01/24 10:11 [facility] Disclaimer: The information contained in this section may have been updated after the patient was seen, as this information can be updated by other users. Medical History Sinusitis Splenomegaly Sepsis Colitis Left shoulder pain Edema Abnormal electrocardiogram [ECG] [EKG] Sinus mucosal thickening Diastasis recti Sunburn Deviated nasal septum Chronic sinusitis Incurvated nail COPD (chronic obstructive pulmonary disease) Shoulder pain, bilateral TMJ arthralgia Cervical paraspinous muscle spasm Pharyngitis Acute bronchitis Otitis externa Cerumen impaction Acute sinusitis Erectile dysfunction Diabetic foot Callus of foot Muscle strain Rib pain on right side Bruising Pain of right upper arm Pain in right shoulder Neck Pain Callus Psoriasis History of diabetes mellitus, type II History of hyperlipidemia History of hypertension Cellulitis of left foot Carpal tunnel syndrome of right wrist Cellulitis VRE (vancomycin resistant enterococcus) culture positive Gas gangrene of foot Foot abscess, right Severe sepsis with acute organ dysfunction Cellulitis of right foot Diabetic ulcer of left foot Diabetic foot Type 2 diabetes mellitus with diabetic polyneuropathy, with long-term current use of insulin Amputation of toe of left foot Other acute osteomyelitis, right ankle and foot Diabetic ulcer of toe of right foot associated with type 2 diabetes mellitus, limited to breakdown of skin Diabetes mellitus Foot osteomyelitis, right Pre-ulcerative calluses Diabetic infection of right foot Diabetic ulcer of right foot Encounter for wound care Onychomycosis Nail dystrophy Overweight (BMI 25.0-29.9) Left foot pain Hammertoes of both feet Diabetes mellitus with diabetic neuropathy, with long-term current use of insulin Amputation of one or more toes Equinus contracture of left ankle Gangrene of toe of left foot Diabetic foot infection Cellulitis and abscess of foot Infected surgical wound Dyspnea CAD, multiple vessel Hyperlipidemia Hypertension IDDM (insulin dependent diabetes mellitus) Non-STEMI (non-ST elevated myocardial infarction) Surgical History History of nasal septoplasty Status post nasal septoplasty History of amputation of toe History of amputation of toe Hx of cataract surgery Status post foot surgery History of amputation of right great toe S/P CABG x 6 Family History Mother Heart attack Social History Smoking Status: Never smoker years smoked: 25 smoking status stop date: 11/02/2001 how long ago did patient quit smokin second hand exposure: Yes alcohol intake: former substance use type: denies use current occupational status: disabled Travel in the last 8 weeks: None household members: none housing: apartment caffeine: Yes Other Medical History Have you received the Flu Vaccine for this season: No Have you received the Pneumonia Vaccine: Yes ROS Obtained: Yes All systems reviewed & no additional complaints except as documented Physical Exam General General appearance: alert and in no apparent distress Head Head exam: atraumatic and normocephalic Eye Eye exam: Present normal appearance, PERRL and EOMI ENT ENT exam: Present normal oropharynx and normal external ear exam Neck Neck exam: Present normal inspection and full ROM Chest Chest inspection: Present normal inspection and symmetric chest wall rise; Absent tenderness Respiratory Respiratory exam: Present normal lung sounds bilaterally; Absent respiratory distress Cardiovascular Cardiovascular exam: Present regular rate and normal rhythm Abdominal Exam Abdominal exam: Present soft; Absent distention, tenderness or guarding Extremities Exam Extremities exam: Present normal inspection; Absent edema or joint swelling Back Exam Back exam: Present normal inspection; Absent tenderness Neurological Exam Neurological exam: Present alert and oriented X3; Absent motor sensory deficit Psychiatric Psychiatric exam: Present normal affect and normal mood Skin Skin exam: Present warm, dry and rash (scaly erythematous lesion in the midline lower abdomen) Lymphatic Lymphatic Findings: no adenopathy Medical Decision Making Medical Records Medical records reviewed: Yes I reviewed the patient's medical records. Screening: Per USPSTF and CDC recommendations, given the prevalence of disease in our region, it is our hospital?s policy to screen for HIV and viral Hepatitis for all patients aged 18 and over and those with ongoing risk factors. Jose Inquiry Pt receiving controlled substance: No Jose was queried for this patient: No Vital Signs: 09/20/24 06:09 09/20/24 06:18 Temperature 97.9 F 97.9 F Temperature Source Oral Oral Pulse Rate 77 Pulse Rate [Right Brachial] 77 Respiratory Rate 20 20 Blood Pressure 164/83 H Blood Pressure [Right Arm] 164/83 H Blood Pressure Mean [Right Arm] 110 Blood Pressure Source Automatic Cuff Blood Pressure Source [Right Arm] Automatic Cuff Blood Pressure Position Sitting Blood Pressure Position [Right Arm] Sitting 02 Sat by Pulse Oximetry 97 Oxygen Delivery Method Room Air Room Air Lab Data Lab results reviewed: Yes I reviewed the patient's lab results. Orders (Tests/Meds): ED MEDICATIONS Discontinued Medications Generic Name Dose Route Start Last Admin Trade Name Freq PRN Reason Stop Dose Admin Clotrimazole 15 gm 09/20/24 05:53 Clotrimazole 1% Cream 15gm Tube TP 09/20/24 05:54 ONCE ONE Fluconazole 200 mg 09/20/24 05:52 Fluconazole 200mg Tablet PO 09/20/24 05:53 DAILY ONE ORDERS Category Date Time Status CXR --portable [XR chest portable] Stat Exams 09/20/24 05:50 Taken HIV (1&2) Antibody Rapid Stat Lab 09/20/24 06:12 Ordered Hep C Ab with Reflex to RNA Stat Lab 09/20/24 06:12 Ordered Medical Decision Narrative: 69-year-old male with extensive past medical history presents with 1 week of sinus congestion and over a month of a red skin lesion on the lower abdomen.. History was obtained via interactive discussion with patient. On arrival, patient is [afebrile, hemodynamically stable, satting appropriately, alert, oriented x4, GCS 15], moving all extremities spontaneously. Full physical exam performed and significant for clear lungs bilaterally, normal vital signs, scaly red lesion on the lower abdomen in the belt line that appears consistent with yeast infection. Differential includes but is not limited to tinea corporis, URI, sinus infection. Chest x-ray was obtained and was interpreted by me, no evidence of pneumonia. Patient was discharged with prescription for fluconazole and clotrimazole cream for therapy of presumed yeast infection. He was discharged in stable condition with return precautions. Procedures Risk/Benefits of Procedure(s) Were Explained: Yes Critical Care Critical Care Time Critical Care Time: No
--- NOTE | 2024-09-20 05:50 | XR_ITS ---
PROCEDURE INFORMATION: Exam: XR Chest Exam date and time: 09/20/2024 5:50 AM Age: 69 years old Clinical indication: Other: Congestion TECHNIQUE: Imaging protocol: Radiologic exam of the chest. Views: 1 view. COMPARISON: CR XR CHEST 2V 06/17/2024 10:20 PM FINDINGS: Lungs: Basilar scarring/atelectasis. No focal consolidation. Pleural spaces: Unremarkable. No pleural effusion. No pneumothorax. Heart/Mediastinum: Unremarkable. No cardiomegaly. Vasculature: Atherosclerotic disease of the aortic arch. Bones/joints: Status post sternotomy. Diffuse degenerative change of the visualized osseous structures. Other findings: Stable round densities over the left upper quadrant/left lung base. IMPRESSION: 1. No acute findings. Basilar scarring/atelectasis. 2. Stable round densities over the left upper quadrant/left lung base, stable from prior comparison.
[2024-09-20 06:09] VITALS: BP 164/83; PULSE 77; RESP 20; TEMP 36.6; O2SAT 97; BMI 26.6
--- NOTE | 2024-09-20 06:13 | PC.NURSE ---
Awake alert and oriented x3 Skin pink warm and dry Large area of excoriated skin noted at waistline. Speech clear and appropriate.
[2024-09-20 06:18] VITALS: BP 164/83; PULSE 77; RESP 20; TEMP 36.6; O2SAT 97
== END 2024-09-20 06:27 | disposition home or self-care (01) ==
PROVIDERS: Emergency Provider Emergency Medicine; PCP Family Medicine
DX: B35.4 Tinea corporis (principal); R09.81 Nasal congestion; R06.02 Shortness of breath; R05.9 Cough, unspecified
CPT/HCPCS: 71045; 99283

== ENCOUNTER 2024-10-28 19:23 | Emergency (ER) | payer MEDICARE, SELFPAY ==
[2024-10-28 19:41] VITALS: BP 157/65; PULSE 82; RESP 20; TEMP 36.9; O2SAT 97; BMI 26.2
--- NOTE | 2024-10-28 19:53 | ED_ITS ---
Discharge Plan Disposition Patient Disposition: Home, Self-Care Condition: Good Prescriptions Prescriptions: New azithromycin 500 mg tablet 500 mg PO DAILY 4 Days Qty: 4 0RF amoxicillin-pot clavulanate 875-125 mg tablet 1 tab PO BID Qty: 20 0RF prednisone 20 mg tablet 40 mg PO DAILY 4 Days Qty: 8 0RF No Action (DME) lancets [FreeStyle Lancets] 28 gauge misc See Rx Instructions .ROUTE .MEDSUPPLY Qty: 100 Rx Instructions: As directed Cosentyx UnoReady Pen 300 mg/2 mL (150 mg/mL) pen injector 300 mg SQ hydrocodone-acetaminophen 10-325 mg tablet PO [place] Saline 0.65 % aerosol,spray 2 spray intranasal QIDP PRN (Reason: dry nasal passages) Qty: 50 0RF diclofenac sodium [Voltaren Arthritis Pain] 1 % gel 2 g topical QID Qty: 100 3RF Rx Instructions: apply to single elbow, wrist or hand; for hand includes palm/fingers/back of hand insulin glargine U-300 conc [Toujeo Max U-300 SoloStar] 300 unit/mL (3 mL) insulin pen 130 unit SQ DAILY Qty: 24 2RF (DME) blood-glucose meter [OneTouch Ultra2 Meter] Misc See Rx Instructions .Route Qty: 1 0RF Rx Instructions: As directed (DME) OneTouch Ultra Test Strip See Rx Instructions .Route Qty: 100 2RF Rx Instructions: As directed (DME) lancets [OneTouch UltraSoft 2 Lancet] 30 gauge misc See Rx Instructions .Route Qty: 100 2RF Rx Instructions: As directed diclofenac sodium 50 mg tablet,delayed release (DR/EC) 50 mg PO Q12H PRN (Reason: pain) Qty: 90 3RF (DME) pen needle, diabetic [Easy Comfort Pen [place]] 31 gauge x 3/16 needle See Rx Instructions .ROUTE .MEDSUPPLY Qty: 50 4RF Rx Instructions: As directed (DME) blood-glucose meter [True Metrix Air Glucose Meter] Misc See Rx Instructions .Route Qty: 1 0RF Rx Instructions: As directed (DME) True Metrix Glucose Test Strip Strip See Rx Instructions .Route Qty: 100 3RF Rx Instructions: Test glucose TID (DME) lancets [TRUEplus Lancets] 33 gauge misc See Rx Instructions .Route Qty: 100 3RF Rx Instructions: As directed loratadine 10 mg tablet See Rx Instructions .ROUTE .COMPLEX Qty: 90 3RF Dose Instruction: TAKE ONE TABLET BY MOUTH ONCE A DAY FOR ALLERGY SYMPTOMS Rx Instructions: TAKE ONE TABLET BY MOUTH ONCE A DAY FOR ALLERGY SYMPTOMS potassium chloride 20 mEq tablet extended release 20 meq PO DAILY Qty: 30 2RF albuterol sulfate 90 mcg/actuation HFA aerosol inhaler 2 inh inhalation Q6HP PRN (Reason: shortness of breath or wheezing) Qty: 6.7 2RF metformin 1,000 mg tablet 1,000 mg PO BID 30 Days Qty: 60 2RF metoprolol tartrate 25 mg tablet See Rx Instructions .ROUTE .COMPLEX Qty: 60 1RF Dose Instruction: TAKE 1 TABLET BY MOUTH TWICE DAILY FOR BLOOD PRESSURE Rx Instructions: TAKE 1 TABLET BY MOUTH TWICE DAILY FOR BLOOD PRESSURE atorvastatin 20 mg tablet 20 mg PO HS 90 Days Qty: 90 0RF omeprazole 20 mg capsule,delayed release(DR/EC) See Rx Instructions .ROUTE .COMPLEX Qty: 180 0RF Dose Instruction: TAKE 1 CAPSULE BY MOUTH TWICE A DAY FOR GERD FOR 90 DAYS Rx Instructions: TAKE 1 CAPSULE BY MOUTH TWICE A DAY FOR GERD FOR 90 DAYS furosemide 40 mg tablet 40 mg PO DAILY 90 Days Qty: 90 0RF methocarbamol 500 mg tablet 500 mg PO Q6H PRN (Reason: pain) Qty: 30 0RF lidocaine 5 % adhesive patch,medicated 1 patch topical DAILY PRN (Reason: pain) Qty: 30 0RF Rx Instructions: leave on most painful area for up to 12 hrs fluconazole 200 mg tablet 200 mg PO WEEKLY 28 Days Qty: 4 0RF clotrimazole 1 % cream 1 applic topical BID 14 Days Qty: 90 0RF ipratropium bromide 0.02 % solution 2.5 ml inhalation Q12H gabapentin 800 mg tablet 800 mg PO QID lisinopril 5 mg tablet 5 mg PO DAILY Referrals Follow up/Referrals: Silvio Mccain MD [Primary Care Provider] - See instructions Activity Restrictions/Add. Instructions Additional Instructions/Restrictions: You were evaluated in the emergency department today. Please shredder picker your prescriptions at the pharmacy and take the full courses as prescribed. Follow- up closely with your primary care provider. Return to the emergency department for new or worsening symptoms Clinical Impressions Clinical Impression: Pneumonia, COPD (chronic obstructive pulmonary disease) Instructions Patient Instructions: DI for Acute Bronchitis Print Language Print Language: Latvian Discharge ED Provider: Joseline Mendes General Adult HPI General Chief complaint: Upper Respiratory Infection Stated complaint: cough, congestion, SOA Time Seen by Provider: 10/28/24 19:35 Mode of Arrival: Ambulatory Source of Information: Patient Limitations: No Limitations Description of Symptoms (Recalled from ER Triage Doc. by RN): Pt states he has had cough and congestion for a week concerned about pneumonia History of Present Illness HPI narrative: This patient is a 69-year-old male with a history of diabetes presenting to the emergency department for evaluation with concern for cough and congestion. He states that has been going on for about a week. He notes concern for possible pneumonia. He denies any other concerns or complaints at this time. Related Data Home Medications ?Medication ?Instructions ?Recorded ?Confirmed lancets 28 gauge (FreeStyle #100 ea 04/01/22 09/01/24 Lancets) gabapentin 800 mg tablet 800 mg PO QID Pain 07/02/23 09/01/24 ipratropium bromide 0.02 % 2.5 ml inhalation Q12H Breathing 07/02/23 09/01/24 solution for inhalation Problems lisinopril 5 mg tablet 5 mg PO DAILY High Blood Pressure 11/08/23 09/01/24 hydrocodone 10 mg-acetaminophen tab PO 02/08/24 09/01/24 325 mg tablet secukinumab 300 mg/2 mL (150 300 mg SQ 04/12/24 09/01/24 mg/mL) subcutaneous pen injector (Cosentyx UnoReady Pen) Previous Rx's ?Medication ?Instructions ?Recorded blood sugar diagnostic (OneTouch #100 ea 11/18/23 Ultra Test strips) blood-glucose meter (OneTouch #1 ea 11/18/23 Ultra2 Meter) lancets 30 gauge (OneTouch #100 ea 11/18/23 UltraSoft 2 Lancet) diclofenac sodium 50 mg 50 mg PO Q12H PRN pain #90 tabs 01/11/24 tablet,delayed release sodium chloride 0.65 % nasal spray 2 spray intranasal QIDP PRN dry 02/08/24 aerosol ([place] Saline) nasal passages #50 mL diclofenac sodium 1 % topical gel 2 g topical QID #100 grams 02/09/24 (Voltaren Arthritis Pain) lidocaine 5 % topical patch 1 patch topical DAILY PRN pain #30 06/18/24 ea methocarbamol 500 mg tablet 500 mg PO Q6H PRN pain #30 tabs 06/18/24 pen needle, diabetic 31 gauge x #50 ea 06/29/24 3/16 (Easy Comfort Pen [place]) blood sugar diagnostic (True #100 ea 07/01/24 Metrix Glucose Test Strip) blood-glucose meter (True Metrix #1 ea 07/01/24 Air Glucose Meter) lancets 33 gauge (TRUEplus Lancets) #100 ea 07/01/24 loratadine 10 mg tablet See Rx Instructions .Route 08/15/24 .COMPLEX #90 tabs insulin glargine U-300 conc 300 130 unit (0.4333 mL) SQ DAILY 09/01/24 unit/mL (3 mL) subcutaneous pen Diabetes #24 mL (Toujeo Max U-300 SoloStar) albuterol sulfate 90 mcg/actuation 2 inh inhalation Q6HP PRN 09/13/24 aerosol inhaler shortness of breath or wheezing #6.7 grams potassium chloride 20 mEq 20 meq PO DAILY #30 tabs 09/13/24 tablet,extended release clotrimazole 1 % topical cream 1 applic topical BID 2 weeks #90 09/20/24 grams fluconazole 200 mg tablet 200 mg PO WEEKLY 4 weeks #4 tabs 09/20/24 metformin 1,000 mg tablet 1,000 mg PO BID Diabetes 30 days 09/22/24 #60 tabs metoprolol tartrate 25 mg tablet See Rx Instructions .Route 09/23/24 .COMPLEX #60 tabs atorvastatin 20 mg tablet 20 mg PO HS Cholesterol 90 days 10/20/24 #90 tabs furosemide 40 mg tablet 40 mg PO DAILY Fluid 90 days #90 10/20/24 tabs omeprazole 20 mg capsule,delayed See Rx Instructions .Route 10/20/24 release .COMPLEX #180 caps amoxicillin 875 mg-potassium 1 tab PO BID #20 tabs 10/28/24 clavulanate 125 mg tablet azithromycin 500 mg tablet 500 mg PO DAILY 4 days #4 tabs 10/28/24 prednisone 20 mg tablet 40 mg (2 x 20 mg) PO DAILY 4 days 10/28/24 #8 tabs Allergies Allergy/AdvReac Type Severity Reaction Status Date / Time No Known Allergies Allergy Verified 09/01/24 10:11 [facility] Disclaimer: The information contained in this section may have been updated after the patient was seen, as this information can be updated by other users. Medical History Sinusitis Splenomegaly Sepsis Colitis Left shoulder pain Edema Abnormal electrocardiogram [ECG] [EKG] Sinus mucosal thickening Diastasis recti Sunburn Deviated nasal septum Chronic sinusitis Incurvated nail COPD (chronic obstructive pulmonary disease) Shoulder pain, bilateral TMJ arthralgia Cervical paraspinous muscle spasm Pharyngitis Acute bronchitis Otitis externa Cerumen impaction Acute sinusitis Erectile dysfunction Diabetic foot Callus of foot Muscle strain Rib pain on right side Bruising Pain of right upper arm Pain in right shoulder Neck Pain Callus Psoriasis History of diabetes mellitus, type II History of hyperlipidemia History of hypertension Cellulitis of left foot Carpal tunnel syndrome of right wrist Cellulitis VRE (vancomycin resistant enterococcus) culture positive Gas gangrene of foot Foot abscess, right Severe sepsis with acute organ dysfunction Cellulitis of right foot Diabetic ulcer of left foot Diabetic foot Type 2 diabetes mellitus with diabetic polyneuropathy, with long-term current use of insulin Amputation of toe of left foot Other acute osteomyelitis, right ankle and foot Diabetic ulcer of toe of right foot associated with type 2 diabetes mellitus, limited to breakdown of skin Diabetes mellitus Foot osteomyelitis, right Pre-ulcerative calluses Diabetic infection of right foot Diabetic ulcer of right foot Encounter for wound care Onychomycosis Nail dystrophy Overweight (BMI 25.0-29.9) Left foot pain Hammertoes of both feet Diabetes mellitus with diabetic neuropathy, with long-term current use of insulin Amputation of one or more toes Equinus contracture of left ankle Gangrene of toe of left foot Diabetic foot infection Cellulitis and abscess of foot Infected surgical wound Dyspnea CAD, multiple vessel Hyperlipidemia Hypertension IDDM (insulin dependent diabetes mellitus) Non-STEMI (non-ST elevated myocardial infarction) Surgical History History of nasal septoplasty Status post nasal septoplasty History of amputation of toe History of amputation of toe Hx of cataract surgery Status post foot surgery History of amputation of right great toe S/P CABG x 6 Family History Mother Heart attack Social History Smoking Status: Never smoker years smoked: 25 smoking status stop date: 11/02/2001 how long ago did patient quit smokin second hand exposure: Yes alcohol intake: former substance use type: denies use current occupational status: disabled Travel in the last 8 weeks: None household members: none housing: apartment caffeine: Yes Have you lived/traveled outside [place] in past 30 days?: No Contact w/someone who lives/traveled outside [place] past 30 days?: No Exposure to someone with infectious disease in past 14 days?: No Do you have a fever (greater than 100.4 F or 38 C)?: No Have you tested positive for COVID-19: No Exposed to someone with COVID-19 in past 14 days?: No Do you have a sore throat?: No Do you have a cough?: Yes Do you have any weakness?: No Do you have any diarrhea?: No Are you experiencing any unusual bleeding?: No Do you have any muscle aches/pain?: No Do you have any abdominal pain?: No Are you experiencing loss of taste or smell?: No Other Medical History Have you received the Flu Vaccine for this season: No Have you received the Pneumonia Vaccine: Yes ROS Obtained: Yes All systems reviewed & no additional complaints except as documented Physical Exam General General appearance: alert and in no apparent distress Head Head exam: atraumatic and normocephalic Eye Eye exam: Present normal appearance, PERRL and EOMI ENT ENT exam: Present normal exam, normal oropharynx, mucous membranes moist and normal external ear exam Neck Neck exam: Present normal inspection, full ROM and trachea midline; Absent tenderness Chest Chest inspection: Present normal inspection and symmetric chest wall rise; Absent tenderness Respiratory Respiratory exam: Present normal lung sounds bilaterally; Absent respiratory distress, wheezes, stridor or accessory muscle use Cardiovascular Cardiovascular exam: Present regular rate and normal rhythm Abdominal Exam Abdominal exam: Present soft; Absent distention, tenderness or guarding Extremities Exam Extremities exam: Present normal inspection, full ROM and normal capillary refill; Absent tenderness or edema Back Exam Back exam: Present normal inspection and full ROM; Absent tenderness Neurological Exam Neurological exam: Present alert, oriented X3, CN II-XII intact and normal gait; Absent motor sensory deficit Psychiatric Psychiatric exam: Present normal affect and normal mood Skin Skin exam: Present warm and dry Medical Decision Making Medical Records Medical records reviewed: Yes I reviewed the patient's medical records. Screening: Per USPSTF and CDC recommendations, given the prevalence of disease in our region, it is our hospital?s policy to screen for HIV and viral Hepatitis for all patients aged 18 and over and those with ongoing risk factors. Jose Inquiry Pt receiving controlled substance: No Vital Signs: 10/28/24 19:41 10/28/24 20:00 10/28/24 20:30 Temperature 98.4 F Temperature Source Oral Pulse Rate 80 85 Pulse Rate [Right Brachial] 82 Respiratory Rate 20 Blood Pressure 159/73 H 173/83 H Blood Pressure [Right Arm] 157/65 H Blood Pressure Mean 127 113 Blood Pressure Mean [Right Arm] 95 02 Sat by Pulse Oximetry 97 97 97 Oxygen Delivery Method Room Air Room Air Room Air 10/28/24 21:00 10/28/24 22:51 Temperature 98.1 F Temperature Source Oral Pulse Rate 78 84 Pulse Rate [Right Brachial] Respiratory Rate 18 Blood Pressure 150/66 H 157/73 H Blood Pressure [Right Arm] Blood Pressure Mean 94 Blood Pressure Mean [Right Arm] 02 Sat by Pulse Oximetry 98 Oxygen Delivery Method Room Air Room Air Lab Data Lab results reviewed: Yes I reviewed the patient's lab results. Lab Results 10/28/24 20:55: WBC 4.1 L, RBC 3.98 L, Hgb 9.5 L, Hct 31.5 L, MCV 79.1 L, MCH 23.9 L, MCHC 30.2 L, RDW 15.7, Plt Count 99 L, MPV 10.6 H, Neut % (Auto) 66.4, Lymph % (Auto) 22.0, [place] % (Auto) 8.7, Eos % (Auto) 1.9, Baso % (Auto) 0.5, Neut # (Auto) 2.8, Lymph # (Auto) 0.9, [place] # (Auto) 0.4, Eos # (Auto) 0.1, Baso # (Auto) 0.0, Sodium 137, Potassium 3.9, Chloride 102, Carbon Dioxide 27, Anion Gap 11.9, BUN 20, Creatinine 0.90, Estimated Creat Clear 78, Estimated GFR 83, Est GFR ( Amer) 101, Glucose 189 H, Calcium 8.8, Total Bilirubin 0.9, AST 50, ALT 38, Alkaline Phosphatase 139 H, NT-Pro-B Natriuret Pep 330 H, Total Protein 7.5, Albumin 3.8, Globulin 3.7 H, Albumin/Globulin Ratio 1.0 L, HIV Ag/Ab Combo Qual Negative 10/28/24 21:03: SARS-CoV-2 (PCR) Not detected, Influenza A Untype (PCR) Not detected, Influenza Type B (PCR) Not detected, POC RSV Rapid Negative 10/28/24 20:55 10/28/24 20:55 Orders (Tests/Meds): ED MEDICATIONS Discontinued Medications Generic Name Dose Route Start Last Admin Trade Name Freq PRN Reason Stop Dose Admin Amoxicillin/Clavulanate Potassium 1 each 10/28/24 22:21 10/28/24 22:52 Amoxicillin/Clavulanate Potassium 875/125mg Tablet PO 10/28/24 22:22 1 each ONCE ONE Administration Azithromycin 500 mg 10/28/24 22:21 10/28/24 22:52 Azithromycin 250mg Tablet PO 10/28/24 22:22 500 mg ONCE ONE Administration Prednisone 40 mg 10/28/24 22:34 10/28/24 22:52 Prednisone 20mg Tab PO 10/28/24 22:35 40 mg ONCE ONE Administration ORDERS Category Date Time Status CXR 2 view (NOT portable) [XR chest 2V] Stat Exams 10/28/24 19:56 Completed BNP [NT Pro Brain Natriuretic Pep.] Stat Lab 10/28/24 20:55 Completed Complete Blood Count Auto Diff Stat Lab 10/28/24 20:55 Completed Comprehensive Metabolic Panel Stat Lab 10/28/24 20:55 Completed HIV Combo Stat Lab 10/28/24 20:55 Completed Hep C Ab with Reflex to RNA Stat Lab 10/28/24 20:55 Received RSV Rapid Ab Screen Stat Lab 10/28/24 21:03 Completed Rapid PCR Covid and Flu A/B Stat Lab 10/28/24 21:03 Completed Medical Decision Narrative: In summary, this patient is a 69-year-old male presenting to the Emergency Department for evaluation of cough and congestion. Differential diagnoses considered include but are not limited to syndrome, pneumonia, bronchitis, respiratory failure, pharyngitis. Ruling out the most morbid conditions drove assessment. It should be noted patient's history includes diabetes which may or may not be at goal therapy. This complicates all aspects of care by increasing patient's risk for morbidity. On exam, the patient is very well-appearing. He has no increased work of breathing with normal vital signs on cardiac telemetry. Cardiopulmonary exam is reassuring. Workup included CBC, CMP, chest x-ray, BNP, viral swab. Based on reassuring history and exam, I do not feel that other labs or imaging are indicated.. I independently interpreted x-ray prior to the radiologist read and noted developing infiltrates concerning for pneumonia. Please see their read for final interpretation. Labs were obtained that demonstrated no significant changes from prior. On reassessment, patient is again comfortable with no increased work of breathing. Vitals reassuring on cardiac telemetry. He is ambulatory to the bathroom without issue. I feel he likely has pneumonia. Given history of COPD, I prescribed him prednisone in addition to Augmentin and azithromycin. He was discharged with strict return precautions and instructions for close follow-up with primary care. Critical Care Critical Care Time Critical Care Time: No
--- NOTE | 2024-10-28 19:56 | XR_ITS ---
PROCEDURE INFORMATION: Exam: XR Chest Exam date and time: 10/28/2024 8:12 PM Age: 69 years old Clinical indication: Cough TECHNIQUE: Imaging protocol: Radiologic exam of the chest. Views: 2 views. PA and Lateral COMPARISON: CR XR CHEST PORTABLE 09/20/2024 5:50 AM FINDINGS: Tubes, catheters and devices: Surgical clips overlie the mediastinum. Lungs: Mild bilateral perihilar and basilar interstitial lung opacities, suggesting pulmonary edema versus infiltrates. The peripheral lungs are otherwise clear. No consolidation. The pulmonary opacities are most prominent within bilateral perihilar lungs. Pleural spaces: No pleural effusion. No pneumothorax. Heart/Mediastinum: Mediastinum and dorys appear unremarkable. Vasculature: Severe atherosclerotic calcification and plaque demonstrated within the aorta. Bones/joints: Sternotomy wires, hardware is demonstrated. Diffusely decreased bone density. Moderate to severe generalized bony degenerative changes. IMPRESSION: Mild interstitial pulmonary edema versus infiltrates.
[2024-10-28 20:00] VITALS: BP 159/73; PULSE 80; O2SAT 97
[2024-10-28 20:30] VITALS: BP 173/83; PULSE 85; O2SAT 97
[2024-10-28 21:00] VITALS: BP 150/66; PULSE 78; O2SAT 98
[2024-10-28 21:06] LABS: Basophils % 0.5 % (0.1-2.0); Eosinophils # 0.1 K/mm3 (0.0-0.4); Eosinophils % 1.9 % (0.1-12.0); Hematocrit 31.5 % (42.0-52.0); Hemoglobin 9.5 g/dL (14.1-18.0); Lymphocytes # 0.9 K/mm3 (0.7-4.5); Mean Corpuscular HGB Conc 30.2 g/dL (31.8-35.4); Mean Corpuscular Hemoglobin 23.9 pg (27.0-31.2); Mean Corpuscular Volume 79.1 fl (80-94); Mean Platelet Volume 10.6 fl (7.4-10.4); Monocytes # 0.4 K/mm3 (0.1-1.0); Monocytes % 8.7 % (1.7-9.3); Neutrophils # 2.8 K/mm3 (1.8-7.8); Neutrophils % 66.4 % (37.0-80.0); Platelet Count 99 K/mm3 (142-424); Red Blood Count 3.98 M/mm3 (4.60-6.20); Red Cell Distribution Width 15.7 % (11.5-17.5); White Blood Count 4.1 K/mm3 (4.8-10.8)
[2024-10-28 21:08] LABS: Coronavirus 19, PCR Not Detected (NotDetected); Influenza A, PCR Not Detected (NotDetected); Influenza B, PCR Not Detected (NotDetected)
[2024-10-28 21:15] LABS: Albumin Level 3.8 g/dl (3.5-5.0); Chloride 102 mmol/L (98-107); Potassium 3.9 mmoL/L (3.5-5.1); Sodium 137 mmol/L (136-145)
[2024-10-28 21:18] LABS: Alanine Aminotransferase 38 U/L (12-78); Alkaline Phosphatase 139 U/L (38-126); Anion Gap 11.9 mEq/L (5-15); Aspartate Amino Transferase 50 U/L (17-59); Bilirubin,Total 0.9 mg/dl (0.2-1.3); Blood Urea Nitrogen 20 mg/dl (9-20); Calcium 8.8 mg/dl (8.4-10.2); Carbon Dioxide 27 mmol/L (22.0-30.0); Creatinine Clearance Estimated 78 mL/min (50-200); Estimated Glomerular Filt Rate 83 ml/min (>60); GFR (African American) 101 ML/MIN (>60); Globulin 3.7 g/dL (1.3-3.2); Glucose 189 mg/dl (74-100); Total Protein,Serum 7.5 g/dl (6.3-8.2)
[2024-10-28 21:26] LABS: RSV Rapid Ab Screen Negative (Negative)
[2024-10-28 21:27] LABS: NT Pro Brain Natriuretic Pep. 330 pg/mL (0-125)
[2024-10-28 22:07] LABS: HIV Combo NEGATIVE (Negative)
[2024-10-28 22:51] VITALS: BP 157/73; PULSE 84; RESP 18; TEMP 36.7; O2SAT 97
[2024-10-28] MEDS: AZITHROMYCIN 250MG TABLET 500 MG PO (22:52)
[2024-10-28] MEDS: AMOXICILLIN/CLAVULANATE POTASSIUM 875/125MG TABLET 1 EACH PO (22:52)
[2024-10-28] MEDS: predniSONE 20MG TAB 40 MG PO (22:52)
[2024-10-30 08:13] LABS: HCV Ab Non Reactive (Non Reactive)
== END 2024-10-28 22:59 | disposition home or self-care (01) ==
PROVIDERS: Emergency Provider Emergency Medicine; PCP Family Medicine
DX: J18.9 Pneumonia, unspecified organism (principal); J44.9 Chronic obstructive pulmonary disease, unspecified; R05.9 Cough, unspecified; R09.81 Nasal congestion; R06.02 Shortness of breath
CPT/HCPCS: 71046; 80053; 83880; 85025; 86803; 87389; 87636; 87807; 99283

== ENCOUNTER 2024-11-28 15:00 | Outpatient (CLI) | payer MEDICARE, SELFPAY ==
[2024-11-28 16:18] LABS: Basophils % 0.3 % (0.1-2.0); Eosinophils # 0.1 K/mm3 (0.0-0.4); Eosinophils % 1.6 % (0.1-12.0); Hematocrit 33.4 % (42.0-52.0); Lymphocytes # 0.8 K/mm3 (0.7-4.5); Lymphocytes % 20.7 % (10-50); Mean Corpuscular HGB Conc 29.9 g/dL (31.8-35.4); Mean Corpuscular Hemoglobin 23.8 pg (27.0-31.2); Mean Corpuscular Volume 79.3 fl (80-94); Mean Platelet Volume 11.2 fl (7.4-10.4); Monocytes # 0.3 K/mm3 (0.1-1.0); Monocytes % 8.1 % (1.7-9.3); Neutrophils # 2.6 K/mm3 (1.8-7.8); Platelet Count 120 K/mm3 (142-424); Red Blood Count 4.21 M/mm3 (4.60-6.20); Red Cell Distribution Width 16.7 % (11.5-17.5); White Blood Count 3.7 K/mm3 (4.8-10.8)
[2024-11-28 17:46] LABS: Chloride 104 mmol/L (98-107); Potassium 4.8 mmoL/L (3.5-5.1); Sodium 137 mmol/L (136-145)
[2024-11-28 17:49] LABS: Anion Gap 16.8 mEq/L (5-15); Blood Urea Nitrogen 21 mg/dl (9-20); Calcium 8.7 mg/dl (8.4-10.2); Carbon Dioxide 21 mmol/L (22.0-30.0); Estimated Glomerular Filt Rate 96 ml/min (>60); GFR (African American) 116 ML/MIN (>60); Glucose 212 mg/dl (74-100)
== END 2024-11-28 23:59 | disposition home or self-care (01) ==
LOC: LAB.DROPOF 11-29 09:09
PROVIDERS: PCP Family Medicine; Visit Provider Family Medicine
DX: M54.2 Cervicalgia (principal)
CPT/HCPCS: 80048; 85025

== ENCOUNTER 2024-12-05 19:39 | Emergency (ER) | payer MEDICARE, SELFPAY ==
[2024-12-05 19:41] VITALS: BP 135/72; PULSE 82; RESP 16; TEMP 36.7; O2SAT 97; BMI 27.3
[2024-12-05 19:50] VITALS: BP 135/72; PULSE 82; RESP 13; TEMP 36.7; O2SAT 96
--- NOTE | 2024-12-05 19:54 | ED_ITS ---
Discharge Plan Disposition Patient Disposition: Home, Self-Care Prescriptions Prescriptions: New pseudoephedrine HCl 120 mg tablet extended release 120 mg PO BID PRN (Reason: nasal congestion) 7 Days Qty: 14 0RF No Action (DME) lancets [FreeStyle Lancets] 28 gauge misc See Rx Instructions .ROUTE .MEDSUPPLY Qty: 100 Rx Instructions: As directed Cosentyx UnoReady Pen 300 mg/2 mL (150 mg/mL) pen injector 300 mg SQ potassium chloride 20 mEq tablet,ER particles/crystals 20 meq PO fluticasone propionate 50 mcg/actuation spray,suspension 2 spray intranasal BID cephalexin 500 mg capsule 500 mg PO BID Qty: 20 0RF [place] Saline 0.65 % aerosol,spray 2 spray intranasal QIDP PRN (Reason: dry nasal passages) Qty: 50 0RF diclofenac sodium [Voltaren Arthritis Pain] 1 % gel 2 g topical QID Qty: 100 3RF Rx Instructions: apply to single elbow, wrist or hand; for hand includes palm/fingers/back of hand insulin glargine U-300 conc [Toujeo Max U-300 SoloStar] 300 unit/mL (3 mL) insulin pen 130 unit SQ DAILY Qty: 24 2RF ipratropium-albuterol 0.5 mg-3 mg(2.5 mg base)/3 mL solution for nebulization 3 ml inhalation BID Qty: 90 0RF (DME) blood-glucose meter [OneTouch Ultra2 Meter] Misc See Rx Instructions .Route Qty: 1 0RF Rx Instructions: As directed (DME) OneTouch Ultra Test Strip See Rx Instructions .Route Qty: 100 2RF Rx Instructions: As directed (DME) lancets [OneTouch UltraSoft 2 Lancet] 30 gauge misc See Rx Instructions .Route Qty: 100 2RF Rx Instructions: As directed diclofenac sodium 50 mg tablet,delayed release (DR/EC) 50 mg PO Q12H PRN (Reason: pain) Qty: 90 3RF (DME) pen needle, diabetic [Easy Comfort Pen [place]] 31 gauge x 3/16 needle See Rx Instructions .ROUTE .MEDSUPPLY Qty: 50 4RF Rx Instructions: As directed (DME) blood-glucose meter [True Metrix Air Glucose Meter] Misc See Rx Instructions .Route Qty: 1 0RF Rx Instructions: As directed (DME) True Metrix Glucose Test Strip Strip See Rx Instructions .Route Qty: 100 3RF Rx Instructions: Test glucose TID (DME) lancets [TRUEplus Lancets] 33 gauge misc See Rx Instructions .Route Qty: 100 3RF Rx Instructions: As directed loratadine 10 mg tablet See Rx Instructions .ROUTE .COMPLEX Qty: 90 3RF Dose Instruction: TAKE ONE TABLET BY MOUTH ONCE A DAY FOR ALLERGY SYMPTOMS Rx Instructions: TAKE ONE TABLET BY MOUTH ONCE A DAY FOR ALLERGY SYMPTOMS potassium chloride 20 mEq tablet extended release 20 meq PO DAILY Qty: 30 2RF albuterol sulfate 90 mcg/actuation HFA aerosol inhaler 2 inh inhalation Q6HP PRN (Reason: shortness of breath or wheezing) Qty: 6.7 2RF atorvastatin 20 mg tablet 20 mg PO HS 90 Days Qty: 90 0RF omeprazole 20 mg capsule,delayed release(DR/EC) See Rx Instructions .ROUTE .COMPLEX Qty: 180 0RF Dose Instruction: TAKE 1 CAPSULE BY MOUTH TWICE A DAY FOR GERD FOR 90 DAYS Rx Instructions: TAKE 1 CAPSULE BY MOUTH TWICE A DAY FOR GERD FOR 90 DAYS furosemide 40 mg tablet 40 mg PO DAILY 90 Days Qty: 90 0RF metformin 1,000 mg tablet 1,000 mg PO BID 30 Days Qty: 60 2RF metoprolol tartrate 25 mg tablet See Rx Instructions .ROUTE .COMPLEX Qty: 60 1RF Dose Instruction: TAKE 1 TABLET BY MOUTH TWICE DAILY FOR BLOOD PRESSURE Rx Instructions: TAKE 1 TABLET BY MOUTH TWICE DAILY FOR BLOOD PRESSURE ferrous fumarate 324 mg (106 mg iron) tablet 324 mg PO DAILY Qty: 30 0RF methocarbamol 500 mg tablet 500 mg PO Q6H PRN (Reason: pain) Qty: 30 0RF lidocaine 5 % adhesive patch,medicated 1 patch topical DAILY PRN (Reason: pain) Qty: 30 0RF Rx Instructions: leave on most painful area for up to 12 hrs clotrimazole 1 % cream 1 applic topical BID 14 Days Qty: 90 0RF ipratropium bromide 0.02 % solution 2.5 ml inhalation Q12H gabapentin 800 mg tablet 800 mg PO QID lisinopril 5 mg tablet 5 mg PO DAILY Referrals Follow up/Referrals: Rj Vickers MD [Physician] - See instructions Silvio Mccain MD [Primary Care Provider] - See instructions Activity Restrictions/Add. Instructions Additional Instructions/Restrictions: Given the chronicity of your nasal congestion I recommend that you follow-up with an ear nose and throat doctor. We have given you a referral and a phone number to call please make next available appointment. Regarding your sinus congestion there is no evidence of infection at this point. This is not consistent with sinusitis. Please continue your Flonase I would also recommend that you get [id number] Afrin to take over the next 3 days and also roll picker your prescription for Sudafed which is a decongestant. Return with any high fevers significant pressure in her face shortness of breath or other concerns. Clinical Impressions Clinical Impression: Sinus congestion Print Language Print Language: Russian Discharge ED Provider: Maicol Leach General Adult HPI General Stated complaint: nose stopped up,drainage Time Seen by Provider: 12/05/24 19:43 History of Present Illness HPI narrative: 69-year-old male present today with right nasal congestion. States that this has been ongoing for at least the last few months. He has been seen in the ED for this he has been on multiple medications including antibiotics without any improvement he also was started on Flonase. He has not tried any decongestants but has tried every other cough medicine that there is [id number]. States he does have a mild cough but recently had a normal chest x-ray. Denies any shortness of breath. Denies any fevers or chills. Denies any purulent discharge denies any significant facial pressure or sinus pressure. Simply states that his right anterior nare is clogged up. Related Data Home Medications ?Medication ?Instructions ?Recorded ?Confirmed lancets 28 gauge (FreeStyle #100 ea 04/01/22 11/28/24 Lancets) gabapentin 800 mg tablet 800 mg PO QID Pain 07/02/23 11/28/24 ipratropium bromide 0.02 % 2.5 ml inhalation Q12H Breathing 07/02/23 11/28/24 solution for inhalation Problems lisinopril 5 mg tablet 5 mg PO DAILY High Blood Pressure 11/08/23 11/28/24 secukinumab 300 mg/2 mL 300 mg SQ 04/12/24 11/28/24 subcutaneous pen injector (Cosentyx UnoReady Pen) fluticasone propionate 50 2 spray intranasal BID 11/28/24 11/28/24 mcg/actuation nasal spray,suspension potassium chloride 20 mEq 20 meq PO 11/28/24 11/28/24 tablet,extended release(part/cryst) Previous Rx's ?Medication ?Instructions ?Recorded blood sugar diagnostic (OneTouch #100 ea 11/18/23 Ultra Test strips) blood-glucose meter (OneTouch #1 ea 11/18/23 Ultra2 Meter) lancets 30 gauge (OneTouch #100 ea 11/18/23 UltraSoft 2 Lancet) diclofenac sodium 50 mg 50 mg PO Q12H PRN pain #90 tabs 01/11/24 tablet,delayed release sodium chloride 0.65 % nasal spray 2 spray intranasal QIDP PRN dry 02/08/24 aerosol ([place] Saline) nasal passages #50 mL diclofenac sodium 1 % topical gel 2 g topical QID #100 grams 02/09/24 (Voltaren Arthritis Pain) lidocaine 5 % topical patch 1 patch topical DAILY PRN pain #30 06/18/24 ea methocarbamol 500 mg tablet 500 mg PO Q6H PRN pain #30 tabs 06/18/24 pen needle, diabetic 31 gauge x #50 ea 06/29/2401/15 (Easy Comfort Pen [place]) blood sugar diagnostic (True #100 ea 07/01/24 Metrix Glucose Test Strip) blood-glucose meter (True Metrix #1 ea 07/01/24 Air Glucose Meter) lancets 33 gauge (TRUEplus Lancets) #100 ea 07/01/24 loratadine 10 mg tablet See Rx Instructions .Route 08/15/24 .COMPLEX #90 tabs insulin glargine U-300 conc 300 130 unit (0.4333 mL) SQ DAILY 09/01/24 unit/mL (3 mL) subcutaneous pen Diabetes #24 mL (Toujeo Max U-300 SoloStar) albuterol sulfate 90 mcg/actuation 2 inh inhalation Q6HP PRN 09/13/24 aerosol inhaler shortness of breath or wheezing #6.7 grams potassium chloride 20 mEq 20 meq PO DAILY #30 tabs 09/13/24 tablet,extended release clotrimazole 1 % topical cream 1 applic topical BID 2 weeks #90 09/20/24 grams atorvastatin 20 mg tablet 20 mg PO HS Cholesterol 90 days 10/20/24 #90 tabs omeprazole 20 mg capsule,delayed See Rx Instructions .Route 10/20/24 release .COMPLEX #180 caps ipratropium 0.5 mg-albuterol 3 mg 3 ml inhalation BID #90 mL 11/23/24 (2.5 mg base)/3 mL nebulization soln cephalexin 500 mg capsule 500 mg PO BID #20 caps 11/28/24 furosemide 40 mg tablet 40 mg PO DAILY Fluid 90 days #90 11/28/24 tabs metformin 1,000 mg tablet 1,000 mg PO BID Diabetes 30 days 11/28/24 #60 tabs metoprolol tartrate 25 mg tablet See Rx Instructions .Route 11/28/24 .COMPLEX #60 tabs ferrous fumarate 324 mg (106 mg 324 mg PO DAILY #30 tabs 11/29/24 iron) tablet pseudoephedrine HCl 120 mg 120 mg PO BID PRN nasal congestion 12/05/24 tablet,extended release 7 days #14 tabs Allergies Allergy/AdvReac Type Severity Reaction Status Date / Time No Known Allergies Allergy Verified 11/28/24 14:41 [facility] Disclaimer: The information contained in this section may have been updated after the patient was seen, as this information can be updated by other users. Medical History Pre-ulcerative calluses Arthritis Sinusitis Splenomegaly Sepsis Colitis Left shoulder pain Edema Abnormal electrocardiogram [ECG] [EKG] Sinus mucosal thickening Diastasis recti Sunburn Deviated nasal septum Chronic sinusitis Incurvated nail COPD (chronic obstructive pulmonary disease) Shoulder pain, bilateral TMJ arthralgia Cervical paraspinous muscle spasm Pharyngitis Acute bronchitis Otitis externa Cerumen impaction Acute sinusitis Erectile dysfunction Diabetic foot Callus of foot Muscle strain Rib pain on right side Bruising Pain of right upper arm Pain in right shoulder Neck Pain Callus Psoriasis History of diabetes mellitus, type II History of hyperlipidemia History of hypertension Cellulitis of left foot Carpal tunnel syndrome of right wrist Cellulitis VRE (vancomycin resistant enterococcus) culture positive Gas gangrene of foot Foot abscess, right Severe sepsis with acute organ dysfunction Cellulitis of right foot Diabetic ulcer of left foot Diabetic foot Type 2 diabetes mellitus with diabetic polyneuropathy, with long-term current use of insulin Amputation of toe of left foot Other acute osteomyelitis, right ankle and foot Diabetic ulcer of toe of right foot associated with type 2 diabetes mellitus, limited to breakdown of skin Diabetes mellitus Foot osteomyelitis, right Diabetic infection of right foot Diabetic ulcer of right foot Encounter for wound care Onychomycosis Nail dystrophy Overweight (BMI 25.0-29.9) Left foot pain Hammertoes of both feet Diabetes mellitus with diabetic neuropathy, with long-term current use of insulin Amputation of one or more toes Equinus contracture of left ankle Gangrene of toe of left foot Diabetic foot infection Cellulitis and abscess of foot Infected surgical wound Dyspnea CAD, multiple vessel Hyperlipidemia Hypertension IDDM (insulin dependent diabetes mellitus) Non-STEMI (non-ST elevated myocardial infarction) Surgical History History of nasal septoplasty Status post nasal septoplasty History of amputation of toe History of amputation of toe Hx of cataract surgery Status post foot surgery History of amputation of right great toe S/P CABG x 6 Family History Mother Heart attack Social History Smoking Status: Never smoker years smoked: 25 smoking status stop date: 11/02/2001 how long ago did patient quit smokin second hand exposure: Yes alcohol intake: former substance use type: denies use current occupational status: disabled Travel in the last 8 weeks: None household members: none housing: apartment caffeine: Yes Have you lived/traveled outside [place] in past 30 days?: No Contact w/someone who lives/traveled outside [place] past 30 days?: No Exposure to someone with infectious disease in past 14 days?: No Do you have a fever (greater than 100.4 F or 38 C)?: No Have you tested positive for COVID-19: No Exposed to someone with COVID-19 in past 14 days?: No Do you have a sore throat?: No Do you have a cough?: No Do you have any weakness?: No Do you have any diarrhea?: No Are you experiencing any unusual bleeding?: No Do you have any muscle aches/pain?: No Do you have any abdominal pain?: No Are you experiencing loss of taste or smell?: No Other Medical History Have you received the Flu Vaccine for this season: No Have you received the Pneumonia Vaccine: Yes ROS Obtained: Yes All systems reviewed & no additional complaints except as documented Physical Exam General General appearance: alert ENT ENT exam: Present normal exam, normal oropharynx and other (Anterior nares appear normal without any significant inflammation or occlusion or foreign body or mass) Respiratory Respiratory exam: Present normal lung sounds bilaterally Cardiovascular Cardiovascular exam: Present regular rate Neurological Exam Neurological exam: Present alert and oriented X3 Medical Decision Making Medical Records Screening: Per USPSTF and CDC recommendations, given the prevalence of disease in our region, it is our hospital?s policy to screen for HIV and viral Hepatitis for all patients aged 18 and over and those with ongoing risk factors. Jose Inquiry Pt receiving controlled substance: No Vital Signs: 12/05/24 19:50 Temperature 98.1 F Pulse Rate 82 Respiratory Rate 13 Blood Pressure 135/72 02 Sat by Pulse Oximetry 96 Oxygen Delivery Method Room Air Medical Decision Narrative: Nontoxic-appearing 69-year-old male present today with above history and physical. He had a recent chest x-ray respiratory exam is normal ENT exam is objectively normal on my evaluation as well. No indication for any emergent workup at this point. This is not consistent with acute sinusitis or bacterial infection. He has been advised to continue his Flonase and to take Sudafed in addition to as needed Afrin for a few days. He may have some structural abnormality that is causing the symptoms that he is perceiving at the moment and therefore he has been given a referral to ENT given the chronicity of the symptoms. Patient was discharged in stable condition. Critical Care Critical Care Time Critical Care Time: No
[2024-12-05 19:58] VITALS: BP 135/72; PULSE 82; RESP 16; TEMP 36.7; O2SAT 97
--- NOTE | 2024-12-05 20:02 | PC.NURSE ---
Pt is unsure of medications. Said he'll bring a list next time.
== END 2024-12-05 20:06 | disposition home or self-care (01) ==
PROVIDERS: Emergency Provider Student in an Organized Health Care Education/Training Program; PCP Family Medicine
DX: R09.81 Nasal congestion (principal); R05.9 Cough, unspecified
CPT/HCPCS: 99283

== ENCOUNTER 2024-12-24 21:08 | Emergency (ER) | payer MEDICARE, SELFPAY ==
[2024-12-24 21:15] VITALS: BP 180/88; PULSE 85; RESP 20; TEMP 36.8; O2SAT 97; BMI 26.6
--- NOTE | 2024-12-24 21:21 | PC.NURSE ---
Pt awake alert and oriented Skin pink warm and dry Resp full and easy Speech clear and appropriate
[2024-12-24 21:22] VITALS: BP 180/88; PULSE 85; RESP 20; TEMP 36.8; O2SAT 97
--- NOTE | 2024-12-24 21:22 | ED_ITS ---
Discharge Plan Disposition Patient Disposition: Home, Self-Care Prescriptions Prescriptions: New pseudoephedrine HCl 120 mg tablet extended release 120 mg PO BID PRN (Reason: nasal congestion) 7 Days Qty: 14 0RF fluticasone furoate 27.5 mcg/actuation spray,suspension 2 spray intranasal DAILY PRN (Reason: allergy symptoms) 30 Days Qty: 9.1 0RF Rx Instructions: into each nostril No Action (DME) lancets [FreeStyle [facility]ets] [facility] See Rx Instructions .ROUTE .MEDSUPPLY Qty: 100 Rx Instructions: As directed Cosentyx UnoReady Pen 300 mg/2 mL (150 mg/mL) pen injector 300 mg SQ potassium chloride 20 mEq tablet,ER particles/crystals 20 meq PO fluticasone propionate 50 mcg/actuation spray,suspension 2 spray intranasal BID cephalexin 500 mg capsule 500 mg PO BID Qty: 20 0RF [place] Saline 0.65 % aerosol,spray 2 spray intranasal QIDP PRN (Reason: dry nasal passages) Qty: 50 0RF diclofenac sodium [Voltaren Arthritis Pain] 1 % gel 2 g topical QID Qty: 100 3RF Rx Instructions: apply to single elbow, wrist or hand; for hand includes palm/fingers/back of hand insulin glargine U-300 conc [Toujeo Max U-300 SoloStar] 300 unit/mL (3 mL) insulin pen 130 unit SQ DAILY Qty: 24 2RF ipratropium-albuterol 0.5 mg-3 mg(2.5 mg base)/3 mL solution for nebulization 3 ml inhalation BID Qty: 90 0RF (DME) blood-glucose meter [OneTouch Ultra2 Meter] [facility] [place] See Rx Instructions .Route Qty: 1 0RF Rx Instructions: As directed (DME) OneTouch Ultra Test Strip See Rx Instructions .Route Qty: 100 2RF Rx Instructions: As directed (DME) lancets [OneTouch UltraSoft 2 Lancet] 30 gauge [facility] See Rx Instructions .Route Qty: 100 2RF Rx Instructions: As directed diclofenac sodium 50 mg tablet,delayed release (DR/EC) 50 mg PO Q12H PRN (Reason: pain) Qty: 90 3RF (DME) pen needle, diabetic [Easy Comfort Pen [place]] 31 gauge x 3/16 needle See Rx Instructions .ROUTE .MEDSUPPLY Qty: 50 4RF Rx Instructions: As directed (DME) blood-glucose meter [True Metrix Air Glucose Meter] Misc See Rx Instructions .Route Qty: 1 0RF Rx Instructions: As directed (DME) True Metrix Glucose Test Strip Strip See Rx Instructions .Route Qty: 100 3RF Rx Instructions: Test glucose TID (DME) lancets [TRUEplus Lancets] 33 gauge misc See Rx Instructions .Route Qty: 100 3RF Rx Instructions: As directed loratadine 10 mg tablet See Rx Instructions .ROUTE .COMPLEX Qty: 90 3RF Dose Instruction: TAKE ONE TABLET BY MOUTH ONCE A DAY FOR ALLERGY SYMPTOMS Rx Instructions: TAKE ONE TABLET BY MOUTH ONCE A DAY FOR ALLERGY SYMPTOMS albuterol sulfate 90 mcg/actuation HFA aerosol inhaler 2 inh inhalation Q6HP PRN (Reason: shortness of breath or wheezing) Qty: 6.7 2RF atorvastatin 20 mg tablet 20 mg PO HS 90 Days Qty: 90 0RF omeprazole 20 mg capsule,delayed release(DR/EC) See Rx Instructions .ROUTE .COMPLEX Qty: 180 0RF Dose Instruction: TAKE 1 CAPSULE BY MOUTH TWICE A DAY FOR GERD FOR 90 DAYS Rx Instructions: TAKE 1 CAPSULE BY MOUTH TWICE A DAY FOR GERD FOR 90 DAYS furosemide 40 mg tablet 40 mg PO DAILY 90 Days Qty: 90 0RF metoprolol tartrate 25 mg tablet See Rx Instructions .ROUTE .COMPLEX Qty: 60 1RF Dose Instruction: TAKE 1 TABLET BY MOUTH TWICE DAILY FOR BLOOD PRESSURE Rx Instructions: TAKE 1 TABLET BY MOUTH TWICE DAILY FOR BLOOD PRESSURE ferrous fumarate 324 mg (106 mg iron) tablet 324 mg PO DAILY Qty: 30 0RF metformin 1,000 mg tablet 1,000 mg PO BID 30 Days Qty: 60 2RF potassium chloride 20 mEq tablet extended release 20 meq PO DAILY Qty: 30 2RF methocarbamol 500 mg tablet 500 mg PO Q6H PRN (Reason: pain) Qty: 30 0RF lidocaine 5 % adhesive patch,medicated 1 patch topical DAILY PRN (Reason: pain) Qty: 30 0RF Rx Instructions: leave on most painful area for up to 12 hrs clotrimazole 1 % cream 1 applic topical BID 14 Days Qty: 90 0RF pseudoephedrine HCl 120 mg tablet extended release 120 mg PO BID PRN (Reason: nasal congestion) 7 Days Qty: 14 0RF ipratropium bromide 0.02 % solution 2.5 ml inhalation Q12H gabapentin 800 mg tablet 800 mg PO QID lisinopril 5 mg tablet 5 mg PO DAILY Referrals Follow up/Referrals: Silvio Mccain MD [Primary Care Provider] - See instructions Activity Restrictions/Add. Instructions Additional Instructions/Restrictions: No emergent medical condition identified today please keep your follow-up appointment with ENT. Clinical Impressions Clinical Impression: Sinus congestion Print Language Print Language: Portuguese Discharge ED Provider: Maicol Leach General Adult HPI General Chief complaint: PAIN Stated complaint: cant breath out of right side of nose Time Seen by Provider: 12/24/24 21:15 Mode of Arrival: Ambulatory Source of Information: Patient Limitations: No Limitations Description of Symptoms (Recalled from ER Triage Doc. by RN): nose blocked on right side History of Present Illness HPI narrative: 69-year-old male with a history of several months of right-sided nasal sinus congestion presents today with persistence of his symptoms. Has been here multiple times with this. Has no new or different symptoms today. States that Sudafed and Flonase have helped but he has run out of them. He has an appointment with ENT on the . No fevers chills blood etc. Related Data Home Medications ?Medication ?Instructions ?Recorded ?Confirmed lancets 28 gauge (FreeStyle #100 ea 04/01/22 11/28/24 Lancets) gabapentin 800 mg tablet 800 mg PO QID Pain 07/02/23 11/28/24 ipratropium bromide 0.02 % 2.5 ml inhalation Q12H Breathing 07/02/23 11/28/24 solution for inhalation Problems lisinopril 5 mg tablet 5 mg PO DAILY High Blood Pressure 11/08/23 11/28/24 secukinumab 300 mg/2 mL 300 mg SQ 04/12/24 11/28/24 subcutaneous pen injector (Cosentyx UnoReady Pen) fluticasone propionate 50 2 spray intranasal BID 11/28/24 11/28/24 mcg/actuation nasal spray,suspension potassium chloride 20 mEq 20 meq PO 11/28/24 11/28/24 tablet,extended release(part/cryst) Previous Rx's ?Medication ?Instructions ?Recorded blood sugar diagnostic ([employer]Touch #100 ea 11/18/23 Ultra Test strips) blood-glucose meter ([employer]Touch #1 ea 11/18/23 Ultra2 Meter) lancets 30 gauge (OneTouch #100 ea 11/18/23 UltraSoft 2 Lancet) diclofenac sodium 50 mg 50 mg PO Q12H PRN pain #90 tabs 01/11/24 tablet,delayed release sodium chloride 0.65 % nasal spray 2 spray intranasal QIDP PRN dry 02/08/24 aerosol ([place] Saline) nasal passages #50 mL diclofenac sodium 1 % topical gel 2 g topical QID #100 grams 02/09/24 (Voltaren Arthritis Pain) lidocaine 5 % topical patch 1 patch topical DAILY PRN pain #30 06/18/24 ea methocarbamol 500 mg tablet 500 mg PO Q6H PRN pain #30 tabs 06/18/24 pen needle, diabetic 31 gauge x #50 ea 06/29/24/ (Easy Comfort Pen [place]) blood sugar diagnostic (True #100 ea 07/01/24 Metrix Glucose Test Strip) blood-glucose meter (True Metrix #1 ea 07/01/24 Air Glucose Meter) lancets 33 gauge (TRUEplus Lancets) #100 ea 07/01/24 loratadine 10 mg tablet See Rx Instructions .Route 08/15/24 .COMPLEX #90 tabs insulin glargine U-300 conc 300 130 unit (0.4333 mL) SQ DAILY 09/01/24 unit/mL (3 mL) subcutaneous pen Diabetes #24 mL (Toujeo Max U-300 SoloStar) albuterol sulfate 90 mcg/actuation 2 inh inhalation Q6HP PRN 09/13/24 aerosol inhaler shortness of breath or wheezing #6.7 grams clotrimazole 1 % topical cream 1 applic topical BID 2 weeks #90 09/20/24 grams atorvastatin 20 mg tablet 20 mg PO HS Cholesterol 90 days 10/20/24 #90 tabs omeprazole 20 mg capsule,delayed See Rx Instructions .Route 10/20/24 release .COMPLEX #180 caps ipratropium 0.5 mg-albuterol 3 mg 3 ml inhalation BID #90 mL 11/23/24 (2.5 mg base)/3 mL nebulization soln cephalexin 500 mg capsule 500 mg PO BID #20 caps 11/28/24 furosemide 40 mg tablet 40 mg PO DAILY Fluid 90 days #90 11/28/24 tabs metoprolol tartrate 25 mg tablet See Rx Instructions .Route 11/28/24 .COMPLEX #60 tabs ferrous fumarate 324 mg (106 mg 324 mg PO DAILY #30 tabs 11/29/24 iron) tablet pseudoephedrine HCl 120 mg 120 mg PO BID PRN nasal congestion 12/05/24 tablet,extended release 7 days #14 tabs metformin 1,000 mg tablet 1,000 mg PO BID Diabetes 30 days 12/13/24 #60 tabs potassium chloride 20 mEq 20 meq PO DAILY #30 tabs 12/13/24 tablet,extended release fluticasone furoate 27.5 2 spray intranasal DAILY PRN 12/24/24 mcg/actuation nasal allergy symptoms 30 days #9.1 mL spray,suspension pseudoephedrine HCl 120 mg 120 mg PO BID PRN nasal congestion 12/24/24 tablet,extended release 7 days #14 tabs Allergies Allergy/AdvReac Type Severity Reaction Status Date / Time No Known Allergies Allergy Verified 11/28/24 14:41 [facility] Disclaimer: The information contained in this section may have been updated after the patient was seen, as this information can be updated by other users. Medical History Pre-ulcerative calluses Arthritis Sinusitis Splenomegaly Sepsis Colitis Left shoulder pain Edema Abnormal electrocardiogram [ECG] [EKG] Sinus mucosal thickening Diastasis recti Sunburn Deviated nasal septum Chronic sinusitis Incurvated nail COPD (chronic obstructive pulmonary disease) Shoulder pain, bilateral TMJ arthralgia Cervical paraspinous muscle spasm Pharyngitis Acute bronchitis Otitis externa Cerumen impaction Acute sinusitis Erectile dysfunction Diabetic foot Callus of foot Muscle strain Rib pain on right side Bruising Pain of right upper arm Pain in right shoulder Neck Pain Callus Psoriasis History of diabetes mellitus, type II History of hyperlipidemia History of hypertension Cellulitis of left foot Carpal tunnel syndrome of right wrist Cellulitis VRE (vancomycin resistant enterococcus) culture positive Gas gangrene of foot Foot abscess, right Severe sepsis with acute organ dysfunction Cellulitis of right foot Diabetic ulcer of left foot Diabetic foot Type 2 diabetes mellitus with diabetic polyneuropathy, with long-term current use of insulin Amputation of toe of left foot Other acute osteomyelitis, right ankle and foot Diabetic ulcer of toe of right foot associated with type 2 diabetes mellitus, limited to breakdown of skin Diabetes mellitus Foot osteomyelitis, right Diabetic infection of right foot Diabetic ulcer of right foot Encounter for wound care Onychomycosis Nail dystrophy Overweight (BMI 25.0-29.9) Left foot pain Hammertoes of both feet Diabetes mellitus with diabetic neuropathy, with long-term current use of insulin Amputation of one or more toes Equinus contracture of left ankle Gangrene of toe of left foot Diabetic foot infection Cellulitis and abscess of foot Infected surgical wound Dyspnea CAD, multiple vessel Hyperlipidemia Hypertension IDDM (insulin dependent diabetes mellitus) Non-STEMI (non-ST elevated myocardial infarction) Surgical History History of nasal septoplasty Status post nasal septoplasty History of amputation of toe History of amputation of toe Hx of cataract surgery Status post foot surgery History of amputation of right great toe S/P CABG x 6 Family History Mother Heart attack Social History Smoking Status: Never smoker years smoked: 25 smoking status stop date: 11/02/2001 how long ago did patient quit smokin second hand exposure: Yes alcohol intake: former substance use type: denies use current occupational status: disabled Travel in the last 8 weeks: None household members: none housing: apartment caffeine: Yes Have you lived/traveled outside [place] in past 30 days?: No Contact w/someone who lives/traveled outside [place] past 30 days?: No Exposure to someone with infectious disease in past 14 days?: No Do you have a fever (greater than 100.4 F or 38 C)?: No Have you tested positive for COVID-19: No Exposed to someone with COVID-19 in past 14 days?: No Do you have a sore throat?: No Do you have a cough?: No Do you have any weakness?: No Do you have any diarrhea?: No Are you experiencing any unusual bleeding?: No Do you have any muscle aches/pain?: No Do you have any abdominal pain?: No Are you experiencing loss of taste or smell?: No Other Medical History Have you received the Flu Vaccine for this season: No Have you received the Pneumonia Vaccine: Yes ROS Obtained: Yes All systems reviewed & no additional complaints except as documented Physical Exam General General appearance: alert and in no apparent distress ENT ENT exam: Present other (No anterior nasal abnormalities no bleeding evidence of erythema swelling masses etc.) Respiratory Respiratory exam: Present normal lung sounds bilaterally Cardiovascular Cardiovascular exam: Present regular rate Neurological Exam Neurological exam: Present alert and oriented X3 Medical Decision Making Medical Records Screening: Per USPSTF and CDC recommendations, given the prevalence of disease in our region, it is our hospital?s policy to screen for HIV and viral Hepatitis for all patients aged 18 and over and those with ongoing risk factors. Jose Inquiry Pt receiving controlled substance: No Vital Signs: 12/24/24 21:15 Temperature 98.2 F Temperature Source Oral Pulse Rate [Right Brachial] 85 Respiratory Rate 20 Blood Pressure [Right Arm] 180/88 H Blood Pressure Mean [Right Arm] 118 Blood Pressure Source [Right Arm] Automatic Cuff Blood Pressure Position [Right Arm] Sitting 02 Sat by Pulse Oximetry 97 Oxygen Delivery Method Room Air Medical Decision Narrative: Patient very stable and similar in appearance to last time that I saw him for the same concerns. Needs ENT follow-up for likely a scope. Symptomatic medications refilled. No evidence of infection erosive mass or marked medical condition etc. Critical Care Critical Care Time Critical Care Time: No
== END 2024-12-24 21:25 | disposition home or self-care (01) ==
LOC: ER 21:19
PROVIDERS: Emergency Provider Student in an Organized Health Care Education/Training Program; PCP Family Medicine
DX: R09.81 Nasal congestion (principal)
CPT/HCPCS: 99283

== ENCOUNTER 2025-01-31 14:09 | Outpatient (CLI) | payer MEDICARE, SELFPAY ==
--- NOTE | 2025-01-31 14:10 | CT_ITS ---
FINAL REPORT TECHNIQUE: Thin section axial CT with coronal reconstruction without IV contrast This study was performed with techniques to keep radiation doses as low as reasonably achievable, (ALARA). Individualized dose reduction techniques using automated exposure control or adjustment of mA and/or kV according to the patient''s size were employed. CLINICAL HISTORY: chronic sinusitis pt states hx of sinus sx. main complaint is feeling hoarse COMPARISON: 04/22/2024 FINDINGS: There is a stable mucous retention cyst in the inferior right maxillary sinus measuring up to 11 mm. The paranasal sinuses are otherwise clear. Postoperative changes are noted in the ethmoid air cells. Ostiomeatal complexes are widely patent. There is a 6 mm mucous retention cyst near the right maxillary sinus ostium. Nasal septum is midline. The mastoid sinuses are clear. IMPRESSION: No evidence of acute sinusitis. Right maxillary mucous retention cysts as above. Reviewed, Interpreted and Dictated by Sonal Carcamo MD Transcribed by Leeann Luevano Authenticated and [facility]
== END 2025-01-31 23:59 | disposition home or self-care (01) ==
LOC: RAD 14:10
PROVIDERS: PCP Family Medicine; Visit Provider Nurse Practitioner
DX: J34.89 Other specified disorders of nose and nasal sinuses (principal)
CPT/HCPCS: 70486

== ENCOUNTER 2025-02-15 14:01 | Outpatient (CLI) | payer MEDICARE, SELFPAY ==
[2025-02-15 13:54] LABS: Basophils % 0.2 % (0.1-2.0); Eosinophils # 0.1 K/mm3 (0.0-0.4); Eosinophils % 1.9 % (0.1-12.0); Hematocrit 39.9 % (42.0-52.0); Hemoglobin 12.5 g/dL (14.1-18.0); Lymphocytes # 0.8 K/mm3 (0.7-4.5); Lymphocytes % 20.1 % (10-50); Mean Corpuscular HGB Conc 31.3 g/dL (31.8-35.4); Mean Corpuscular Hemoglobin 26.4 pg (27.0-31.2); Mean Corpuscular Volume 84.4 fl (80-94); Mean Platelet Volume 11.5 fl (7.4-10.4); Monocytes # 0.4 K/mm3 (0.1-1.0); Monocytes % 8.7 % (1.7-9.3); Neutrophils # 2.8 K/mm3 (1.8-7.8); Neutrophils % 68.6 % (37.0-80.0); Nucleated Red Blood Cells # 0 10^3/uL; Nucleated Red Blood Cells % 0 %; Platelet Count 86 K/mm3 (142-424); Red Blood Count 4.73 M/mm3 (4.60-6.20); Red Cell Distribution Width 15.9 % (11.5-17.5); Red Cell Distribution Width-SD 47.9 fL; White Blood Count 4.1 K/mm3 (4.8-10.8)
[2025-02-15 14:11] LABS: Albumin Level 4.4 g/dl (3.5-5.0); Chloride 103 mmol/L (98-107)
[2025-02-15 14:12] LABS: Potassium 4.3 mmoL/L (3.5-5.1); Sodium 143 mmol/L (136-145)
[2025-02-15 14:14] LABS: Alanine Aminotransferase 56 U/L (12-78); Anion Gap 15.3 mEq/L (5-15); Aspartate Amino Transferase 79 U/L (17-59); Blood Urea Nitrogen 20 mg/dl (9-20); Carbon Dioxide 29 mmol/L (22.0-30.0); Estimated Glomerular Filt Rate 83 ml/min (>60); GFR (African American) 101 ML/MIN (>60)
[2025-02-15 14:15] LABS: Albumin/Globulin Ratio 1.1 (1.1-1.8); Alkaline Phosphatase 166 U/L (38-126); Bilirubin,Total 0.7 mg/dl (0.2-1.3); Calcium 9.5 mg/dl (8.4-10.2); Chol/HDL Ratio 3.4 (1-3.5); Cholesterol 172 mg/dl (140-200); Glucose 189 mg/dl (74-100); HDL Cholesterol 50 mg/dl (40-60); Total Protein,Serum 8.4 g/dl (6.3-8.2); Triglycerides 134 mg/dl (30-150); VLDL Cholesterol 27 mg/dL (0-40)
[2025-02-15 14:41] LABS: Direct LDL Cholesterol 86.94 mg/dL (100-129)
[2025-02-15 14:47] LABS: Thyroid Stimulating Hormone 3.52 uIU/mL (0.465-4.68)
[2025-02-15 17:55] LABS: Hemoglobin A1C 7.9 % (4.0-6.0)
== END 2025-02-15 23:59 | disposition home or self-care (01) ==
LOC: LAB.DROPOF 14:01
PROVIDERS: PCP Family Medicine; Visit Provider Family Medicine
DX: E11.40 Type 2 diabetes mellitus with diabetic neuropathy, unspecified (principal); Z79.4 Long term (current) use of insulin; Z12.5 Encounter for screening for malignant neoplasm of prostate
CPT/HCPCS: 80053; 80061; 83036; 84443; 85025

== ENCOUNTER 2025-03-22 16:41 | Emergency (ER) | payer MEDICARE, SELFPAY ==
[2025-03-22 16:47] VITALS: BP 168/75; PULSE 94; O2SAT 94
--- NOTE | 2025-03-22 16:47 | ED_ITS ---
<Statement entered by Joseline Mendes DO - 03/22/25 23:46> I was consulted by the RAE, and we discussed the complexity of the problems being addressed. I approved the treatment and management plan for this patient's care in the emergency department, thus performing a substantive portion of the medical decision making. Joseline Mendes DO Discharge Plan Disposition Patient Disposition: Home, Self-Care Condition: Good Prescriptions Prescriptions: New doxycycline hyclate 100 mg capsule 100 mg PO BID 10 Days Qty: 20 0RF prednisone 50 mg tablet 50 mg PO DAILY 5 Days Qty: 5 0RF [id number]-[id number] [Bromfed DM] 2-30-10 mg/5 mL syrup 5 ml PO Q4H PRN (Reason: sinus symptoms) Qty: 118 0RF No Action (DME) lancets [FreeStyle Lancets] 28 gauge misc See Rx Instructions .ROUTE .MEDSUPPLY Qty: 100 Rx Instructions: As directed Cosentyx UnoReady Pen 300 mg/2 mL (150 mg/mL) pen injector 300 mg SQ fluticasone propionate 50 mcg/actuation spray,suspension 2 spray intranasal BID hydrocodone-acetaminophen 10-325 mg tablet 1 tab PO QID betamethasone dipropionate 0.05 % cream 1 applic topical BID Qty: 15 1RF clotrimazole 1 % cream 1 applic topical BID 14 Days Qty: 90 0RF [place] Saline 0.65 % aerosol,spray 2 spray intranasal QIDP PRN (Reason: dry nasal passages) Qty: 50 0RF (DME) blood-glucose meter [OneTouch Ultra2 Meter] Misc See Rx Instructions .Route Qty: 1 0RF Rx Instructions: As directed (DME) OneTouch Ultra Test Strip See Rx Instructions .Route Qty: 100 2RF Rx Instructions: As directed (DME) lancets [OneTouch UltraSoft 2 Lancet] 30 gauge misc See Rx Instructions .Route Qty: 100 2RF Rx Instructions: As directed (DME) pen needle, diabetic [Easy Comfort Pen [place]] 31 gauge x 3/16 needle See Rx Instructions .ROUTE .MEDSUPPLY Qty: 50 4RF Rx Instructions: As directed (DME) blood-glucose meter [True Metrix Air Glucose Meter] Misc See Rx Instructions .Route Qty: 1 0RF Rx Instructions: As directed (DME) True Metrix Glucose Test Strip Strip See Rx Instructions .Route Qty: 100 3RF Rx Instructions: Test glucose TID (DME) lancets [TRUEplus Lancets] 33 gauge misc See Rx Instructions .Route Qty: 100 3RF Rx Instructions: As directed loratadine 10 mg tablet See Rx Instructions .ROUTE .COMPLEX Qty: 90 3RF Dose Instruction: TAKE ONE TABLET BY MOUTH ONCE A DAY FOR ALLERGY SYMPTOMS Rx Instructions: TAKE ONE TABLET BY MOUTH ONCE A DAY FOR ALLERGY SYMPTOMS albuterol sulfate 90 mcg/actuation HFA aerosol inhaler 2 inh inhalation Q6HP PRN (Reason: shortness of breath or wheezing) Qty: 6.7 2RF ferrous fumarate 324 mg (106 mg iron) tablet 324 mg PO DAILY Qty: 30 0RF omeprazole 20 mg capsule,delayed release(DR/EC) See Rx Instructions .ROUTE .COMPLEX Qty: 180 0RF Dose Instruction: TAKE 1 CAPSULE BY MOUTH TWICE A DAY FOR GERD FOR 90 DAYS Rx Instructions: TAKE 1 CAPSULE BY MOUTH TWICE A DAY FOR GERD FOR 90 DAYS furosemide 40 mg tablet See Rx Instructions .ROUTE .COMPLEX Qty: 30 2RF Dose Instruction: TAKE ONE TABLET BY MOUTH ONCE A DAY FOR FLUID Rx Instructions: TAKE ONE TABLET BY MOUTH ONCE A DAY FOR FLUID insulin glargine U-300 conc [Toujeo Max U-300 SoloStar] 300 unit/mL (3 mL) insulin pen 130 unit SQ DAILY Qty: 24 2RF ipratropium-albuterol 0.5 mg-3 mg(2.5 mg base)/3 mL solution for nebulization See Rx Instructions .ROUTE .COMPLEX Qty: 180 0RF Dose Instruction: INHALE THE CONTENTS OF 1 VIAL VIA NEBULIZER 2 TIMES A DAY Rx Instructions: INHALE THE CONTENTS OF 1 VIAL VIA NEBULIZER 2 TIMES A DAY potassium chloride 20 mEq tablet,ER particles/crystals See Rx Instructions .ROUTE .COMPLEX Qty: 30 2RF Dose Instruction: TAKE ONE TABLET BY MOUTH ONCE A DAY Rx Instructions: TAKE ONE TABLET BY MOUTH ONCE A DAY atorvastatin 20 mg tablet 20 mg PO HS 90 Days Qty: 90 0RF levocetirizine 5 mg tablet 5 mg PO DAILY 90 Days Qty: 90 0RF lisinopril 5 mg tablet 5 mg PO DAILY 90 Days Qty: 90 0RF potassium chloride 20 mEq tablet extended release 20 meq PO DAILY 90 Days Qty: 90 0RF metoprolol tartrate 25 mg tablet See Rx Instructions .ROUTE .COMPLEX Qty: 60 1RF Dose Instruction: TAKE 1 TABLET BY MOUTH TWICE DAILY FOR BLOOD PRESSURE Rx Instructions: TAKE 1 TABLET BY MOUTH TWICE DAILY FOR BLOOD PRESSURE metformin 1,000 mg tablet See Rx Instructions .ROUTE .COMPLEX Qty: 60 2RF Dose Instruction: TAKE ONE TABLET BY MOUTH 2 TIMES A DAY Rx Instructions: TAKE ONE TABLET BY MOUTH 2 TIMES A DAY methocarbamol 500 mg tablet 500 mg PO Q6H PRN (Reason: pain) Qty: 30 0RF lidocaine 5 % adhesive patch,medicated 1 patch topical DAILY PRN (Reason: pain) Qty: 30 0RF Rx Instructions: leave on most painful area for up to 12 hrs ipratropium bromide 0.02 % solution 2.5 ml inhalation Q12H gabapentin 800 mg tablet 800 mg PO QID fluticasone furoate 27.5 mcg/actuation spray,suspension 2 spray intranasal DAILY PRN (Reason: allergy symptoms) 30 Days Qty: 9.1 0RF Rx Instructions: into each nostril Referrals Follow up/Referrals: Silvio Mccain MD [Primary Care Provider] - See instructions Activity Restrictions/Add. Instructions Additional Instructions/Restrictions: As we discussed please start checking your blood sugar at least twice a day while you are taking steroids. If your sugar gets too high follow-up with your PCP return to the emergency department. Additionally I recommend doing a nebulizer with your home nebulizer machine at least 2-3 times a day to help prevent your cough and wheezing. I have sent an antibiotic steroids and a cough medicine to your pharmacy. Please take your antibiotic till it is gone. Please follow-up with your PCP within 48 hours for recheck of your oxygen level and your blood sugar. If you have any persistent new or worsening signs or symptoms return to the emergency department as needed. Clinical Impressions Clinical Impression: COPD with acute exacerbation, Acute lower respiratory infection Print Language Print Language: Omani Discharge ED Provider: Joseline Mendes General Adult HPI <RUTH Gardiner - Last Filed: 03/22/25 21:23> General Chief complaint: Upper Respiratory Infection Stated complaint: Possible Covid Time Seen by Provider: 03/22/25 16:47 History of Present Illness HPI narrative: Patient presents for evaluation of nonproductive cough headache and sore throat. Symptoms began 2 days ago. Patient does have a history of COPD but is not on home oxygen. He has not had to use his nebulizer. He denies any chest pain shortness of breath fever chills hemoptysis hematochezia melena nausea vomiting diarrhea. Related Data Home Medications ?Medication ?Instructions ?Recorded ?Confirmed lancets 28 gauge (FreeStyle #100 ea 04/01/22 02/27/25 Lancets) gabapentin 800 mg tablet 800 mg PO QID Pain 07/02/23 02/27/25 ipratropium bromide 0.02 % 2.5 ml inhalation Q12H Breathing 07/02/23 02/27/25 solution for inhalation Problems secukinumab 300 mg/2 mL 300 mg SQ 04/12/24 02/27/25 subcutaneous pen injector (Cosentyx UnoReady Pen) fluticasone propionate 50 2 spray intranasal BID 11/28/24 02/27/25 mcg/actuation nasal spray,suspension hydrocodone 10 mg-acetaminophen 1 tab PO QID 12/28/24 02/27/25 325 mg tablet Previous Rx's ?Medication ?Instructions ?Recorded blood sugar diagnostic (OneTouch #100 ea 11/18/23 Ultra Test strips) blood-glucose meter (OneTouch #1 ea 11/18/23 Ultra2 Meter) lancets 30 gauge (OneTouch #100 ea 11/18/23 UltraSoft 2 Lancet) sodium chloride 0.65 % nasal spray 2 spray intranasal QIDP PRN dry 02/08/24 aerosol ([place] Saline) nasal passages #50 mL lidocaine 5 % topical patch 1 patch topical DAILY PRN pain #30 06/18/24 ea methocarbamol 500 mg tablet 500 mg PO Q6H PRN pain #30 tabs 06/18/24 pen needle, diabetic 31 gauge x #50 ea 06/29/24 3/16 (Easy Comfort Pen [place]) blood sugar diagnostic (True #100 ea 07/01/24 Metrix Glucose Test Strip) blood-glucose meter (True Metrix #1 ea 07/01/24 Air Glucose Meter) lancets 33 gauge (TRUEplus Lancets) #100 ea 07/01/24 loratadine 10 mg tablet See Rx Instructions .Route 08/15/24 .COMPLEX #90 tabs albuterol sulfate 90 mcg/actuation 2 inh inhalation Q6HP PRN 09/13/24 aerosol inhaler shortness of breath or wheezing #6.7 grams ferrous fumarate 324 mg (106 mg 324 mg PO DAILY #30 tabs 11/29/24 iron) tablet fluticasone furoate 27.5 2 spray intranasal DAILY PRN 12/24/24 mcg/actuation nasal allergy symptoms 30 days #9.1 mL spray,suspension betamethasone dipropionate 0.05 % 1 applic topical BID #15 grams 12/28/24 topical cream omeprazole 20 mg capsule,delayed See Rx Instructions .Route 01/23/25 release .COMPLEX #180 caps clotrimazole 1 % topical cream 1 applic topical BID 2 weeks #90 02/15/25 grams furosemide 40 mg tablet See Rx Instructions .Route 02/15/25 .COMPLEX #30 tabs insulin glargine U-300 conc 300 130 unit (0.4333 mL) SQ DAILY 02/20/25 unit/mL (3 mL) subcutaneous pen Diabetes #24 mL (Toujeo Max U-300 SoloStar) ipratropium 0.5 mg-albuterol 3 mg See Rx Instructions .Route 02/27/25 (2.5 mg base)/3 mL nebulization .COMPLEX #180 mL soln potassium chloride 20 mEq See Rx Instructions .Route 03/06/25 tablet,extended release(part/cryst) .COMPLEX #30 tabs atorvastatin 20 mg tablet 20 mg PO HS Cholesterol 90 days 03/13/25 #90 tabs levocetirizine 5 mg tablet 5 mg PO DAILY 90 days #90 tabs 03/13/25 lisinopril 5 mg tablet 5 mg PO DAILY High Blood Pressure 03/13/25 90 days #90 tabs potassium chloride 20 mEq 20 meq PO DAILY 90 days #90 tabs 03/13/25 tablet,extended release metoprolol tartrate 25 mg tablet See Rx Instructions .Route 03/14/25 .COMPLEX #60 tabs metformin 1,000 mg tablet See Rx Instructions .Route 03/20/25 .COMPLEX #60 tabs xxrettktqoguoqx-yuslmkjhbdamyvg-RB 5 ml PO Q4H PRN sinus symptoms 03/22/25 2 mg-30 mg-10 mg/5 mL oral syrup #118 mL (Bromfed DM) doxycycline hyclate 100 mg capsule 100 mg PO BID 10 days #20 caps 03/22/25 prednisone 50 mg tablet 50 mg PO DAILY 5 days #5 tabs 03/22/25 Allergies Allergy/AdvReac Type Severity Reaction Status Date / Time No Known Allergies Allergy Verified 02/27/25 09:50 [facility] <RUTH Gardiner - Last Filed: 03/22/25 21:23> [facility] Disclaimer: The information contained in this section may have been updated after the patient was seen, as this information can be updated by other users. Medical History Nasal drainage Erectile dysfunction Pre-ulcerative calluses Arthritis Sinusitis Splenomegaly Sepsis Colitis Left shoulder pain Edema Abnormal electrocardiogram [ECG] [EKG] Sinus mucosal thickening Diastasis recti Sunburn Deviated nasal septum Chronic sinusitis Incurvated nail COPD (chronic obstructive pulmonary disease) Shoulder pain, bilateral TMJ arthralgia Cervical paraspinous muscle spasm Pharyngitis Acute bronchitis Otitis externa Cerumen impaction Acute sinusitis Diabetic foot Callus of foot Muscle strain Rib pain on right side Bruising Pain of right upper arm Pain in right shoulder Neck Pain Callus Psoriasis History of diabetes mellitus, type II History of hyperlipidemia History of hypertension Cellulitis of left foot Carpal tunnel syndrome of right wrist Cellulitis VRE (vancomycin resistant enterococcus) culture positive Gas gangrene of foot Foot abscess, right Severe sepsis with acute organ dysfunction Cellulitis of right foot Diabetic ulcer of left foot Diabetic foot Type 2 diabetes mellitus with diabetic polyneuropathy, with long-term current use of insulin Amputation of toe of left foot Other acute osteomyelitis, right ankle and foot Diabetic ulcer of toe of right foot associated with type 2 diabetes mellitus, limited to breakdown of skin Diabetes mellitus Foot osteomyelitis, right Diabetic infection of right foot Diabetic ulcer of right foot Encounter for wound care Onychomycosis Nail dystrophy Overweight (BMI 25.0-29.9) Left foot pain Hammertoes of both feet Diabetes mellitus with diabetic neuropathy, with long-term current use of insulin Amputation of one or more toes Equinus contracture of left ankle Gangrene of toe of left foot Diabetic foot infection Cellulitis and abscess of foot Infected surgical wound Dyspnea CAD, multiple vessel Hyperlipidemia Hypertension IDDM (insulin dependent diabetes mellitus) Non-STEMI (non-ST elevated myocardial infarction) Surgical History History of nasal septoplasty Status post nasal septoplasty History of amputation of toe History of amputation of toe Hx of cataract surgery Status post foot surgery History of amputation of right great toe S/P CABG x 6 Family History Mother Heart attack Social History Smoking Status: Never smoker years smoked: 25 smoking status stop date: 11/02/2001 how long ago did patient quit smokin second hand exposure: Yes alcohol intake: former substance use type: denies use current occupational status: disabled Travel in the last 8 weeks?: None household members: none housing: apartment caffeine: Yes Have you lived/traveled outside [place] in past 30 days?: No Contact w/someone who lives/traveled outside [place] past 30 days?: No Exposure to someone with infectious disease in past 14 days?: No Do you have a fever (greater than 100.4 F or 38 C)?: No Have you tested positive for COVID-19?: No Exposed to someone with COVID-19 in past 14 days?: No Do you have a sore throat?: No Do you have a cough?: No Do you have any weakness?: No Do you have any diarrhea?: No Are you experiencing any unusual bleeding?: No Do you have any muscle aches/pain?: No Do you have any abdominal pain?: No Are you experiencing loss of taste or smell?: No Other Medical History Have you received the Flu Vaccine for this season: No Have you received the Pneumonia Vaccine: Yes <RUTH Gardiner - Last Filed: 03/22/25 21:23> ROS Obtained: Yes Systems reviewed as appropriate & no additional complaints except as documented Physical Exam <RUTH Gardiner - Last Filed: 03/22/25 21:23> General General appearance: alert and in no apparent distress Respiratory Respiratory exam: Present wheezes; Absent normal lung sounds bilaterally or accessory muscle use Cardiovascular Cardiovascular exam: Present regular rate Neurological Exam Neurological exam: Present alert and oriented X3 Medical Decision Making <RUTH Gardiner - Last Filed: 03/22/25 21:23> Medical Records Medical records reviewed: Yes I reviewed the patient's medical records. Screening: Per USPSTF and CDC recommendations, given the prevalence of disease in our region, it is our hospital?s policy to screen for HIV and viral Hepatitis for all patients aged 18 and over and those with ongoing risk factors. Jose Inquiry Pt receiving controlled substance: No Vital Signs: 03/22/25 16:47 03/22/25 16:53 03/22/25 17:01 Temperature 98.6 F Temperature Source Oral Pulse Rate 94 H 93 H Pulse Rate [Left Radial] 88 Respiratory Rate 25 H 25 H Blood Pressure 168/75 H 159/76 H Blood Pressure [Right Arm] 168/75 H Blood Pressure Mean [Right Arm] 106 02 Sat by Pulse Oximetry 94 L 95 94 L Oxygen Delivery Method Room Air Room Air Room Air 03/22/25 17:30 03/22/25 18:00 03/22/25 18:47 Temperature 98.2 F Temperature Source Pulse Rate 95 H 100 H 101 H Pulse Rate [Left Radial] Respiratory Rate 20 20 20 Blood Pressure 167/69 H 129/65 129/65 Blood Pressure [Right Arm] Blood Pressure Mean [Right Arm] 02 Sat by Pulse Oximetry 97 92 L Oxygen Delivery Method Aerosol Mask Room Air Room Air Lab Data Lab results reviewed: Yes I reviewed the patient's lab results. Lab Results 03/22/25 16:52: Chlamy pneumoniae PCR Not detected, Adenovirus (PCR) Not detected, B. pertussis DNA (PCR) Not detected, Coronavirus OC43 (PCR) Not detected, Coronavirus HKU1 (PCR) Not detected, Coronavirus 229E (PCR) Not detected, SARS-CoV-2 (PCR) Not detected, Coronavirus NL63 (PCR) Not detected, Human Metapneumovir PCR Not detected, Influenza A (H1) PCR Not detected, Influ A (H1N1/09) PCR Not detected, Influenza A (H3) PCR Not detected, Influenza Type A (PCR) Not detected, Influenza Type B (PCR) Not detected, M. pneumoniae (PCR) Not detected, Parainfluenza 1 (PCR) Not detected, Parainfluenza 2 (PCR) Not detected, Parainfluenza 3 (PCR) Not detected, Parainfluenza 4 (PCR) Not detected, RSV (PCR) Not detected, Entero/Rhino (PCR) Not detected 03/22/25 16:53: WBC 8.4, RBC 5.03, Hgb 13.3 L, Hct 42.3, MCV 84.1, MCH 26.4 L, M CHC 31.4 L, RDW 16.1, Plt Count 105 L, MPV 10.8 H, Neut % (Auto) 78.9, Lymph % (Auto) 12.6, Crawford % (Auto) 6.8, Eos % (Auto) 1.1, Baso % (Auto) 0.2, Neut # (Auto) 6.7, Lymph # (Auto) 1.1, Crawford # (Auto) 0.6, Eos # (Auto) 0.1, Baso # (Auto) 0.0, Sodium 140, Potassium 5.0, Chloride 105, Carbon Dioxide 27, Anion Gap 13.0, BUN 16, Creatinine 1.10, Estimated Creat Clear 72, Estimated GFR 66, Est GFR ( Amer) 80, Glucose 177 H, Calcium 9.1, Magnesium 1.1 L, Total Bilirubin 1.1, AST 81 H, ALT 50, Alkaline Phosphatase 151 H, NT-Pro-B Natriuret Pep 284 H, Total Protein 8.5 H, Albumin 4.5, Globulin 4.0 H, Albumin/Globulin Ratio 1.1 03/22/25 16:53 03/22/25 16:53 Orders (Tests/Meds): ED MEDICATIONS Discontinued Medications Generic Name Dose Route Start Last Admin Trade Name Cici PRN Reason Stop Dose Admin Acetaminophen 1,000 mg 03/22/25 17:01 03/22/25 17:13 Acetaminophen 500mg Tab PO 03/22/25 17:02 1,000 mg ONCE ONE Administration Albuterol/Ipratropium 6 ml 03/22/25 17:01 03/22/25 17:13 Ipratropium/Albuterol 3 Ml Neb IH 03/22/25 17:02 6 ml ONCE ONE Administration Dexamethasone Sodium Phosphate 10 mg 03/22/25 17:01 03/22/25 17:13 Dexamethasone 4mg/Ml 5ml Mdv IV 03/22/25 17:02 10 mg ONCE ONE Administration Doxycycline Hyclate 100 mg 03/22/25 18:15 03/22/25 18:41 Doxycycline Hycl 100 Mg Tablet PO 03/22/25 18:16 100 mg ONCE ONE Administration Magnesium Sulfate 2 gm in 50 mls @ 50 mls/hr 03/22/25 17:52 03/22/25 18:06 Magnesium Sulfate 2gm/50ml Premix IV 03/22/25 18:51 50 mls/hr ONCE ONE Administration Ketorolac Tromethamine 15 mg 03/22/25 17:01 03/22/25 17:15 Ketorolac 30mg/Ml Vial IV 03/22/25 17:02 15 mg ONCE ONE Administration Magnesium Oxide 800 mg 03/22/25 17:53 03/22/25 18:06 Magnesium Oxide 400mg Tablet PO 03/22/25 17:54 400 mg ONCE ONE Administration Ondansetron HCl 4 mg 03/22/25 17:01 03/22/25 17:15 Ondansetron 4mg/2ml Vial IV 03/22/25 17:02 4 mg ONCE ONE Administration ORDERS Category Date Time Status Chest XR 2 view (NOT portable) [XR chest 2V] Stat Exams 03/22/25 17:01 Completed BNP [NT Pro Brain Natriuretic Pep.] Stat Lab 03/22/25 16:53 Completed CBC w/Auto Diff [Complete Blood Count Auto Diff] Stat Lab 03/22/25 16:53 Completed CMP [Comprehensive Metabolic Panel] Stat Lab 03/22/25 16:53 Completed Full Resp Panel w/COVID ([facility]) Routine Lab 03/22/25 16:52 Completed Magnesium Stat Lab 03/22/25 16:53 Completed Medical Decision Narrative: In summary patient is a 69-year-old male who presents to the emergency department for evaluation of headache nonproductive cough sore throat. Patient is hemodynamically stable upon arrival, afebrile. Physical exam is remarkable for an expiratory wheezing in all 4 kemp with no increased work of breathing or accessory muscle use. Cardiac is S1-S2 regular rate and rhythm without murmurs gallops rubs or thrills. Patient has normal sinus rhythm on the bedside monitor. Differential diagnosis includes COPD exacerbation versus upper or lower respiratory tract infection versus pneumonia etc. Initial workup will be conducted with hematologic labs plain film chest x-ray full respiratory panel. Initial interventions include DuoNeb Decadron Toradol Tylenol. Initial workup reviewed by me and my informal interpretation of his plain [place] chest x-ray shows some groundglass opacities but no focal infiltrates prior to radiology read. Please see final read for formal interpretation. Hematologic labs are significant for white count of 8.4 normal H&H with no neutrophilic shift magnesium was found to be low at 1.1 which was repleted both IV and p.o NT proBNP was 294 and his full respiratory panel was negative for all organisms tested. Upon repeat evaluation patient reported feeling significantly better however and ambulated to the bathroom his oxygen saturation dropped to 90%.. Given this I had a shared decision-making discussion with the patient and I offered him admission versus discharge home and close follow-up with his PCP and strict return precautions. Patient feels comfortable with utilizing his home nebulizer fingerstick blood sugar and a pulse ox at home to monitor his blood sugar on steroids as well as his oxygen saturation. Given this patient is appropriate for discharge with prescription for burst of steroids doxycycline and Bromfed and strict return precautions. <Joseline Mendes, DO - Last Filed: 03/22/25 16:58> Vital Signs: 03/22/25 16:47 03/22/25 16:53 03/22/25 17:01 Temperature 98.6 F Temperature Source Oral Pulse Rate 94 H 93 H Pulse Rate [Left Radial] 88 Respiratory Rate 25 H 25 H Blood Pressure 168/75 H 159/76 H Blood Pressure [Right Arm] 168/75 H Blood Pressure Mean [Right Arm] 106 02 Sat by Pulse Oximetry 94 L 95 94 L Oxygen Delivery Method Room Air Room Air Room Air 03/22/25 17:30 03/22/25 18:00 03/22/25 18:47 Temperature 98.2 F Temperature Source Pulse Rate 95 H 100 H 101 H Pulse Rate [Left Radial] Respiratory Rate 20 20 20 Blood Pressure 167/69 H 129/65 129/65 Blood Pressure [Right Arm] Blood Pressure Mean [Right Arm] 02 Sat by Pulse Oximetry 97 92 L Oxygen Delivery Method Aerosol Mask Room Air Room Air Lab Data Lab Results 03/22/25 16:52: Chlamy pneumoniae PCR Not detected, Adenovirus (PCR) Not detected, B. pertussis DNA (PCR) Not detected, Coronavirus OC43 (PCR) Not detected, Coronavirus HKU1 (PCR) Not detected, Coronavirus 229E (PCR) Not detected, SARS-CoV-2 (PCR) Not detected, Coronavirus NL63 (PCR) Not detected, Human Metapneumovir PCR Not detected, Influenza A (H1) PCR Not detected, Influ A (H1N1/09) PCR Not detected, Influenza A (H3) PCR Not detected, Influenza Type A (PCR) Not detected, Influenza Type B (PCR) Not detected, M. pneumoniae (PCR) Not detected, Parainfluenza 1 (PCR) Not detected, Parainfluenza 2 (PCR) Not detected, Parainfluenza 3 (PCR) Not detected, Parainfluenza 4 (PCR) Not detected, RSV (PCR) Not detected, Entero/Rhino (PCR) Not detected 03/22/25 16:53: WBC 8.4, RBC 5.03, Hgb 13.3 L, Hct 42.3, MCV 84.1, MCH 26.4 L, M CHC 31.4 L, RDW 16.1, Plt Count 105 L, MPV 10.8 H, Neut % (Auto) 78.9, Lymph % (Auto) 12.6, Crawford % (Auto) 6.8, Eos % (Auto) 1.1, Baso % (Auto) 0.2, Neut # (Auto) 6.7, Lymph # (Auto) 1.1, Crawford # (Auto) 0.6, Eos # (Auto) 0.1, Baso # (Auto) 0.0, Sodium 140, Potassium 5.0, Chloride 105, Carbon Dioxide 27, Anion Gap 13.0, BUN 16, Creatinine 1.10, Estimated Creat Clear 72, Estimated GFR 66, Est GFR ( Amer) 80, Glucose 177 H, Calcium 9.1, Magnesium 1.1 L, Total Bilirubin 1.1, AST 81 H, ALT 50, Alkaline Phosphatase 151 H, NT-Pro-B Natriuret Pep 284 H, Total Protein 8.5 H, Albumin 4.5, Globulin 4.0 H, Albumin/Globulin Ratio 1.1 Orders (Tests/Meds): ED MEDICATIONS Discontinued Medications Generic Name Dose Route Start Last Admin Trade Name Freq PRN Reason Stop Dose Admin Acetaminophen 1,000 mg 03/22/25 17:01 03/22/25 17:13 Acetaminophen 500mg Tab PO 03/22/25 17:02 1,000 mg ONCE ONE Administration Albuterol/Ipratropium 6 ml 03/22/25 17:01 03/22/25 17:13 Ipratropium/Albuterol 3 Ml Neb IH 03/22/25 17:02 6 ml ONCE ONE Administration Dexamethasone Sodium Phosphate 10 mg 03/22/25 17:01 03/22/25 17:13 Dexamethasone 4mg/Ml 5ml Mdv IV 03/22/25 17:02 10 mg ONCE ONE Administration Doxycycline Hyclate 100 mg 03/22/25 18:15 03/22/25 18:41 Doxycycline Hycl 100 Mg Tablet PO 03/22/25 18:16 100 mg ONCE ONE Administration Magnesium Sulfate 2 gm in 50 mls @ 50 mls/hr 03/22/25 17:52 03/22/25 18:06 Magnesium Sulfate 2gm/50ml Premix IV 03/22/25 18:51 50 mls/hr ONCE ONE Administration Ketorolac Tromethamine 15 mg 03/22/25 17:01 03/22/25 17:15 Ketorolac 30mg/Ml Vial IV 03/22/25 17:02 15 mg ONCE ONE Administration Magnesium Oxide 800 mg 03/22/25 17:53 03/22/25 18:06 Magnesium Oxide 400mg Tablet PO 03/22/25 17:54 400 mg ONCE ONE Administration Ondansetron HCl 4 mg 03/22/25 17:01 03/22/25 17:15 Ondansetron 4mg/2ml Vial IV 03/22/25 17:02 4 mg ONCE ONE Administration ORDERS Category Date Time Status Chest XR 2 view (NOT portable) [XR chest 2V] Stat Exams 03/22/25 17:01 Completed BNP [NT Pro Brain Natriuretic Pep.] Stat Lab 03/22/25 16:53 Completed CBC w/Auto Diff [Complete Blood Count Auto Diff] Stat Lab 03/22/25 16:53 Completed CMP [Comprehensive Metabolic Panel] Stat Lab 03/22/25 16:53 Completed Full Resp Panel w/COVID ([facility]) Routine Lab 03/22/25 16:52 Completed Magnesium Stat Lab 03/22/25 16:53 Completed ECG Data Tracing #1: I reviewed this ECG and interpreted as documented below: Normal sinus rhythm with a ventricular rate of 89 bpm. Borderline right axis deviation. No acute ST changes concerning for STEMI. Normal intervals ECG initial impression date: 03/22/25 ECG initial impression time: 16:51 Critical Care <RUTH Gardiner - Last Filed: 03/22/25 21:23> Critical Care Time Critical Care Time: Yes Attestation: On 03/22/25, the high probability of a clinically significant, sudden or life threatening deterioration of the following system(s) required my full and direct attention, intervention and personal management. The time I documented below is in addition to time spent performing reported procedures but includes the following listed in this critical care notation. Total Time Total Critical Care Time: 30
--- NOTE | 2025-03-22 16:50 | ECG_ITS ---
APPROVED REPORT Exam: Resting ECG HR:89 bpm ECG Measurements Heart Rate 89 AXES SC 157 P -84 QRSd 94 QRS 92 QT 338 T 18 QTc 385 Conclusion ECTOPIC ATRIAL RHYTHM BORDERLINE RIGHT AXIS DEVIATION [QRS AXIS > 90] POSSIBLE INFERIOR MYOCARDIAL INFARCTION , PROBABLY OLD [30 ms Q WAVE IN II/aVF] No STEMI Electronically signed by : JESIKA NIETO, 03/25/2025 14:40:28
[2025-03-22 16:53] VITALS: BP 168/75; PULSE 88; RESP 25; TEMP 37; O2SAT 95; BMI 26.6
[2025-03-22 17:01] VITALS: BP 159/76; PULSE 93; RESP 25; O2SAT 94
--- NOTE | 2025-03-22 17:01 | XR_ITS ---
PROCEDURE INFORMATION: Exam: XR Chest Exam date and time: 03/22/2025 5:09 PM Age: 69 years old Clinical indication: Cough; Additional info: Cough congestion TECHNIQUE: Imaging protocol: Radiologic exam of the chest. Views: 2 views. COMPARISON: CR XR CHEST 2V 10/28/2024 8:12 PM FINDINGS: Lungs: Central opacities with peribronchial cuffing, seen to advantage on the lateral chest radiograph. Pleural spaces: Unremarkable. No pleural effusion. No pneumothorax. Heart/Mediastinum: Postsurgical changes compatible with CABG procedure. Bones/joints: Unremarkable. IMPRESSION: Combination of findings that suggests viral process versus reactive airways without evidence of consolidation.
[2025-03-22] MEDS: ACETAMINOPHEN 500MG TAB 1000 MG PO (17:13)
[2025-03-22] MEDS: IPRATROPIUM/ALBUTEROL 3 ML NEB 6 ML IH (17:13)
[2025-03-22] MEDS: DEXAMETHASONE 4MG/ML 5ML MDV 10 MG IV (17:13)
[2025-03-22 17:15] LABS: Basophils % 0.2 % (0.1-2.0); Eosinophils # 0.1 Kmm3 (0.0-0.4); Eosinophils % 1.1 % (0.1-12.0); Hematocrit 42.3 % (42.0-52.0); Hemoglobin 13.3 g/dL (14.1-18.0); Immature Granulocytes # 0.03 10^3uL; Immature Granulocytes % 0.4 %; Lymphocytes # 1.1 K/mm3 (0.7-4.5); Lymphocytes % 12.6 % (10-50); Mean Corpuscular HGB Conc 31.4 g/dL (31.8-35.4); Mean Corpuscular Hemoglobin 26.4 pg (27.0-31.2); Mean Corpuscular Volume 84.1 fl (80-94); Mean Platelet Volume 10.8 fl (7.4-10.4); Monocytes # 0.6 K/mm3 (0.1-1.0); Monocytes % 6.8 % (1.7-9.3); Neutrophils # 6.7 K/mm3 (1.8-7.8); Neutrophils % 78.9 % (37.0-80.0); Nucleated Red Blood Cells # 0 10^3/uL; Nucleated Red Blood Cells % 0 %; Platelet Count 105 K/mm3 (142-424); Red Blood Count 5.03 M/mm3 (4.60-6.20); Red Cell Distribution Width 16.1 % (11.5-17.5); Red Cell Distribution Width-SD 47.9 fL; White Blood Count 8.4 K/mm3 (4.8-10.8)
[2025-03-22] MEDS: ONDANSETRON 4MG/2ML VIAL 4 MG IV (17:15)
[2025-03-22] MEDS: KETOROLAC 30MG/ML VIAL 15 MG IV (17:15)
[2025-03-22 17:16] LABS: Albumin Level 4.5 g/dl (3.5-5.0); Chloride 105 mmol/L (98-107); Sodium 140 mmol/L (136-145)
--- NOTE | 2025-03-22 17:17 | PC.NURSE ---
pt going to xray via wheel chair
[2025-03-22 17:18] LABS: Blood Urea Nitrogen 16 mg/dl (9-20); Creatinine Clearance Estimated 72 mL/min (50-200); Estimated Glomerular Filt Rate 66 ml/min (>60); GFR (African American) 80 ML/MIN (>60)
[2025-03-22 17:19] LABS: Alanine Aminotransferase 50 U/L (12-78); Albumin/Globulin Ratio 1.1 (1.1-1.8); Alkaline Phosphatase 151 U/L (38-126); Aspartate Amino Transferase 81 U/L (17-59); Bilirubin,Total 1.1 mg/dl (0.2-1.3); Calcium 9.1 mg/dl (8.4-10.2); Carbon Dioxide 27 mmol/L (22.0-30.0); Glucose 177 mg/dl (74-100); Magnesium 1.1 mg/dl (1.6-2.3); Total Protein,Serum 8.5 g/dl (6.3-8.2)
[2025-03-22 17:28] LABS: NT Pro Brain Natriuretic Pep. 284 pg/mL (0-125)
[2025-03-22 17:30] VITALS: BP 167/69; PULSE 95; RESP 20; O2SAT 97
[2025-03-22 17:41] LABS: Adenovirus,PCR Not Detected (NotDetected); Bordetella Pertussis Not Detected (NotDetected); Chlamydophila Pneumoniae, PCR Not Detected (NotDetected); Coronavirus 19, PCR Not Detected (NotDetected); Coronavirus 229E Not Detected (NotDetected); Coronavirus NL63 Not Detected (NotDetected); Coronavirus OC43 Not Detected (NotDetected); Coronovirus HKU1,PCR Not Detected (NotDetected); Human Metapneumovirus Not Detected (NotDetected); Influenza A, PCR Not Detected (NotDetected); Influenza AH1, 2009 Not Detected (NotDetected); Influenza AH1, PCR Not Detected (NotDetected); Influenza AH3,PCR Not Detected (NotDetected); Influenza B, PCR Not Detected (NotDetected); Mycoplasma Pneumoniae, PCR Not Detected (NotDetected); Parainfluenza 1, PCR Not Detected (NotDetected); Parainfluenza 2, PCR Not Detected (NotDetected); Parainfluenza 3, PCR Not Detected (NotDetected); Parainfluenza 4, PCR Not Detected (NotDetected); Respiratory Syncytial Virus Not Detected (NotDetected); Rhinovirus/Enterovirus Not Detected (NotDetected)
[2025-03-22 18:00] VITALS: BP 129/65; PULSE 100; RESP 20; O2SAT 92
[2025-03-22] MEDS: MAGNESIUM OXIDE 400MG TABLET 800 MG PO (18:06)
[2025-03-22] MEDS: MAGNESIUM SULFATE IN WATER 2 GM/50 ML PIGGYBACK IV (18:06)
--- NOTE | 2025-03-22 18:24 | PC.NURSE ---
In trying to obtain a walking O2 and road testing him. His pulse ox dropped to 90% on RA
[2025-03-22] MEDS: DOXYCYCLINE HYCL 100 MG TABLET PO (18:41)
[2025-03-22 18:47] VITALS: BP 129/65; PULSE 101; RESP 20; TEMP 36.8; O2SAT 92
== END 2025-03-22 18:48 | disposition home or self-care (01) ==
PROVIDERS: Physician Assistant; Emergency Provider Emergency Medicine; PCP Family Medicine
DX: J44.1 Chronic obstructive pulmonary disease with (acute) exacerbation (principal); R51.9 Headache, unspecified; R07.0 Pain in throat; Z87.891 Personal history of nicotine dependence
CPT/HCPCS: 0223U; 71046; 80053; 83735; 83880; 85025; 87633; 93005; 96365; 96375; 99285; J1100; J1885; J2405; J3475

== ENCOUNTER 2025-06-15 04:58 | Observation (INO) | payer MEDICARE, SELFPAY ==
[2025-06-15] VITALS (13 sets, daily range): BP systolic 118–162; BP diastolic 58–81; PULSE 60–103; RESP 16–20; TEMP 36.4–36.9; O2SAT 94–97; BMI 26.6; BMI 26.3
--- NOTE | 2025-06-15 05:08 | [facility].EDGENADL ---
Discharge Plan Disposition Patient Disposition: Admitted Prescriptions Prescriptions: No Action (DME) lancets [FreeStyle Lancets] 28 gauge misc See Rx Instructions .ROUTE .MEDSUPPLY Qty: 100 Rx Instructions: As directed Cosentyx UnoReady Pen 300 mg/2 mL (150 mg/mL) pen injector 300 mg SQ fluticasone propionate 50 mcg/actuation spray,suspension 2 spray intranasal BID hydrocodone-acetaminophen 10-325 mg tablet 1 tab PO QID betamethasone dipropionate 0.05 % cream 1 applic topical BID Qty: 15 1RF clotrimazole 1 % cream 1 applic topical BID 14 Days Qty: 90 0RF [place] Saline 0.65 % aerosol,spray 2 spray intranasal QIDP PRN (Reason: dry nasal passages) Qty: 50 0RF (DME) blood-glucose meter [OneTouch Ultra2 Meter] [facility] See Rx Instructions .Route Qty: 1 0RF Rx Instructions: As directed (DME) OneTouch Ultra Test Strip See Rx Instructions .Route Qty: 100 2RF Rx Instructions: As directed (DME) lancets [OneTouch UltraSoft 2 Lancet] 30 gauge misc See Rx Instructions .Route Qty: 100 2RF Rx Instructions: As directed (DME) pen needle, diabetic [Easy Comfort Pen [place]] 31 gauge x 3/16 needle See Rx Instructions .ROUTE .MEDSUPPLY Qty: 50 4RF Rx Instructions: As directed (DME) blood-glucose meter [True Metrix Air Glucose Meter] [facility] Rx Instructions .Route Qty: 1 0RF Rx Instructions: As directed (DME) True Metrix Glucose Test Strip Strip See Rx Instructions .Route Qty: 100 3RF Rx Instructions: Test glucose TID (DME) lancets [TRUEplus Lancets] 33 gauge misc See Rx Instructions .Route Qty: 100 3RF Rx Instructions: As directed albuterol sulfate 90 mcg/actuation HFA aerosol inhaler 2 inh inhalation Q6HP PRN (Reason: shortness of breath or wheezing) Qty: 6.7 4RF atorvastatin 20 mg tablet 20 mg PO HS 90 Days Qty: 90 0RF metoprolol tartrate 25 mg tablet See Rx Instructions .ROUTE .COMPLEX Qty: 60 1RF Dose Instruction: TAKE 1 TABLET BY MOUTH TWICE DAILY FOR BLOOD PRESSURE Rx Instructions: TAKE 1 TABLET BY MOUTH TWICE DAILY FOR BLOOD PRESSURE loratadine 10 mg tablet See Rx Instructions .ROUTE .COMPLEX Qty: 90 3RF Dose Instruction: TAKE ONE TABLET BY MOUTH ONCE A DAY FOR ALLERGY SYMPTOMS Rx Instructions: TAKE ONE TABLET BY MOUTH ONCE A DAY FOR ALLERGY SYMPTOMS furosemide 40 mg tablet See Rx Instructions .ROUTE .COMPLEX Qty: 30 2RF Dose Instruction: TAKE ONE TABLET BY MOUTH ONCE A DAY FOR FLUID Rx Instructions: TAKE ONE TABLET BY MOUTH ONCE A DAY FOR FLUID omeprazole 20 mg capsule,delayed release(DR/EC) See Rx Instructions .ROUTE .COMPLEX Qty: 180 0RF Dose Instruction: TAKE 1 CAPSULE BY MOUTH TWICE A DAY FOR GERD FOR 90 DAYS Rx Instructions: TAKE 1 CAPSULE BY MOUTH TWICE A DAY FOR GERD FOR 90 DAYS ipratropium-albuterol 0.5 mg-3 mg(2.5 mg base)/3 mL solution for nebulization See Rx Instructions .ROUTE .COMPLEX Qty: 180 0RF Dose Instruction: INHALE THE CONTENTS OF 1 VIAL VIA NEBULIZER 2 TIMES A DAY Rx Instructions: INHALE THE CONTENTS OF 1 VIAL VIA NEBULIZER 2 TIMES A DAY insulin glargine U-300 conc [Toujeo Max U-300 SoloStar] 300 unit/mL (3 mL) insulin pen 130 unit SQ DAILY Qty: 24 2RF levocetirizine 5 mg tablet 5 mg PO DAILY 90 Days Qty: 90 0RF lisinopril 5 mg tablet 5 mg PO DAILY 90 Days Qty: 90 0RF potassium chloride 20 mEq tablet extended release 20 meq PO DAILY 90 Days Qty: 90 0RF lidocaine 5 % adhesive patch,medicated 1 patch topical DAILY PRN (Reason: pain) Qty: 30 0RF Rx Instructions: leave on most painful area for up to 12 hrs ipratropium bromide 0.02 % solution 2.5 ml inhalation Q12H gabapentin 800 mg tablet 800 mg PO QID fluticasone furoate 27.5 mcg/actuation spray,suspension 2 spray intranasal DAILY PRN (Reason: allergy symptoms) 30 Days Qty: 9.1 0RF Rx Instructions: into each nostril Referrals Follow up/Referrals: Silvio Mccain MD [Primary Care Provider, Internal Medicine] - See instructions Clinical Impressions Clinical Impression: Pancreatitis Instructions Patient Instructions: DI for Acute Abdominal Pain Print Language Print Language: Italian Discharge ED Provider: Randall Linda General Adult HPI <Randall Linda MD - Last Filed: 06/15/25 07:08> General Chief complaint: Abdominal Pain Stated complaint: abd pain, vomiting, diarrhea Time Seen by Provider: 06/15/25 05:08 History of Present Illness HPI narrative: 69-year-old male with history of COPD, diabetes, coronary artery disease presents for severe abdominal pain. He reports that it feels like it is in his upper abdomen. 10 out of 10. It started hurting last night and was associated with vomiting, this morning around 2 he started having worsening pain and diarrhea. He denies any fever at home. Denies any urinary symptoms. Denies specific chest pain but the pain is up in his epigastric region. Related Data Home Medications ?Medication ?Instructions ?Recorded ?Confirmed lancets 28 gauge (FreeStyle #100 ea 04/01/22 06/06/25 Lancets) gabapentin 800 mg tablet 800 mg PO QID Pain 07/02/23 06/06/25 ipratropium bromide 0.02 % 2.5 ml inhalation Q12H Breathing 07/02/23 06/06/25 solution for inhalation Problems secukinumab 300 mg/2 mL 300 mg SQ 04/12/24 06/06/25 subcutaneous pen injector (Cosentyx UnoReady Pen) fluticasone propionate 50 2 spray intranasal BID 11/28/24 06/06/25 mcg/actuation nasal spray,suspension hydrocodone 10 mg-acetaminophen 1 tab PO QID 12/28/24 06/06/25 325 mg tablet Previous Rx's ?Medication ?Instructions ?Recorded blood sugar diagnostic (OneTouch #100 ea 11/18/23 Ultra Test strips) blood-glucose meter (OneTouch #1 ea 11/18/23 Ultra2 Meter) lancets 30 gauge (OneTouch #100 ea 11/18/23 UltraSoft 2 Lancet) sodium chloride 0.65 % nasal spray 2 spray intranasal QIDP PRN dry 02/08/24 aerosol ([place] Saline) nasal passages #50 mL lidocaine 5 % topical patch 1 patch topical DAILY PRN pain #30 06/18/24 ea pen needle, diabetic 31 gauge x #50 ea 06/29/24 3/16 (Easy Comfort Pen [place]) blood sugar diagnostic (True #100 ea 07/01/24 Metrix Glucose Test Strip) blood-glucose meter (True Metrix #1 ea 07/01/24 Air Glucose Meter) lancets 33 gauge (TRUEplus Lancets) #100 ea 07/01/24 fluticasone furoate 27.5 2 spray intranasal DAILY PRN 12/24/24 mcg/actuation nasal allergy symptoms 30 days #9.1 mL spray,suspension betamethasone dipropionate 0.05 % 1 applic topical BID #15 grams 12/28/24 topical cream clotrimazole 1 % topical cream 1 applic topical BID 2 weeks #90 02/15/25 grams albuterol sulfate 90 mcg/actuation 2 inh inhalation Q6HP PRN 03/28/25 aerosol inhaler shortness of breath or wheezing #6.7 grams atorvastatin 20 mg tablet 20 mg PO HS Cholesterol 90 days 05/12/25 #90 tabs metoprolol tartrate 25 mg tablet See Rx Instructions .Route 05/17/25 .COMPLEX #60 tabs loratadine 10 mg tablet See Rx Instructions .Route 05/23/25 .COMPLEX #90 tabs furosemide 40 mg tablet See Rx Instructions .Route 05/29/25 .COMPLEX #30 tabs omeprazole 20 mg capsule,delayed See Rx Instructions .Route 05/29/25 release .COMPLEX #180 caps ipratropium 0.5 mg-albuterol 3 mg See Rx Instructions .Route 06/05/25 (2.5 mg base)/3 mL nebulization .COMPLEX #180 mL soln insulin glargine U-300 conc 300 130 unit (0.4333 mL) SQ DAILY 06/12/25 unit/mL (3 mL) subcutaneous pen Diabetes #24 mL (Toujeo Max U-300 SoloStar) levocetirizine 5 mg tablet 5 mg PO DAILY 90 days #90 tabs 06/12/25 lisinopril 5 mg tablet 5 mg PO DAILY High Blood Pressure 06/12/25 90 days #90 tabs potassium chloride 20 mEq 20 meq PO DAILY 90 days #90 tabs 06/12/25 tablet,extended release Allergies Allergy/AdvReac Type Severity Reaction Status Date / Time No Known Allergies Allergy Verified 06/06/25 08:36 [facility] <Randall Linda MD - Last Filed: 06/15/25 07:08> [facility] Disclaimer: The information contained in this section may have been updated after the patient was seen, as this information can be updated by other users. Medical History Nasal drainage Erectile dysfunction Pre-ulcerative calluses Arthritis Sinusitis Splenomegaly Sepsis Colitis Left shoulder pain Edema Abnormal electrocardiogram [ECG] [EKG] Sinus mucosal thickening Diastasis recti Sunburn Deviated nasal septum Chronic sinusitis Incurvated nail COPD (chronic obstructive pulmonary disease) Shoulder pain, bilateral TMJ arthralgia Cervical paraspinous muscle spasm Pharyngitis Acute bronchitis Otitis externa Cerumen impaction Acute sinusitis Diabetic foot Callus of foot Muscle strain Rib pain on right side Bruising Pain of right upper arm Pain in right shoulder Neck Pain Callus Psoriasis History of diabetes mellitus, type II History of hyperlipidemia History of hypertension Cellulitis of left foot Carpal tunnel syndrome of right wrist Cellulitis VRE (vancomycin resistant enterococcus) culture positive Gas gangrene of foot Foot abscess, right Severe sepsis with acute organ dysfunction Cellulitis of right foot Diabetic ulcer of left foot Diabetic foot Type 2 diabetes mellitus with diabetic polyneuropathy, with long-term current use of insulin Amputation of toe of left foot Other acute osteomyelitis, right ankle and foot Diabetic ulcer of toe of right foot associated with type 2 diabetes mellitus, limited to breakdown of skin Diabetes mellitus Foot osteomyelitis, right Diabetic infection of right foot Diabetic ulcer of right foot Encounter for wound care Onychomycosis Nail dystrophy Overweight (BMI 25.0-29.9) Left foot pain Hammertoes of both feet Diabetes mellitus with diabetic neuropathy, with long-term current use of insulin Amputation of one or more toes Equinus contracture of left ankle Gangrene of toe of left foot Diabetic foot infection Cellulitis and abscess of foot Infected surgical wound Dyspnea CAD, multiple vessel Hyperlipidemia Hypertension IDDM (insulin dependent diabetes mellitus) Non-STEMI (non-ST elevated myocardial infarction) Surgical History History of nasal septoplasty Status post nasal septoplasty History of amputation of toe History of amputation of toe Hx of cataract surgery Status post foot surgery History of amputation of right great toe S/P CABG x 6 Family History Mother Heart attack Social History Smoking Status: Unknown if ever smoked years smoked: 25 smoking status stop date: 11/02/2001 how long ago did patient quit smokin second hand exposure: Yes alcohol intake: former substance use type: denies use current occupational status: disabled Travel in the last 8 weeks?: None household members: none housing: apartment caffeine: Yes Have you lived/traveled outside [place] in past 30 days?: No Contact w/someone who lives/traveled outside US past 30 days?: No Exposure to someone with infectious disease in past 14 days?: No Do you have a fever (greater than 100.4 F or 38 C)?: No Have you tested positive for COVID-19?: No Exposed to someone with COVID-19 in past 14 days?: No Do you have a sore throat?: No Do you have a cough?: No Do you have any weakness?: No Do you have any diarrhea?: Yes Are you experiencing any unusual bleeding?: No Do you have any muscle aches/pain?: No Do you have any abdominal pain?: Yes Are you experiencing loss of taste or smell?: No Other Medical History Have you received the Flu Vaccine for this season: No Have you received the Pneumonia Vaccine: Yes <Randall Linda MD - Last Filed: 06/15/25 07:08> ROS Obtained: Yes All systems reviewed & no additional complaints except as documented Physical Exam <Randall Linda MD - Last Filed: 06/15/25 07:08> General General appearance: alert and in no apparent distress Head Head exam: atraumatic and normocephalic Eye Eye exam: Present normal appearance, PERRL and EOMI ENT ENT exam: Present normal oropharynx and normal external ear exam Neck Neck exam: Present normal inspection and full ROM Chest Chest inspection: Present normal inspection and symmetric chest wall rise; Absent tenderness Respiratory Respiratory exam: Present normal lung sounds bilaterally; Absent respiratory distress Cardiovascular Cardiovascular exam: Present regular rate and normal rhythm Abdominal Exam Abdominal exam: Present soft, distention and tenderness; Absent guarding Extremities Exam Extremities exam: Present normal inspection; Absent edema or joint swelling Back Exam Back exam: Present normal inspection; Absent tenderness Neurological Exam Neurological exam: Present alert and oriented X3; Absent motor sensory deficit Psychiatric Psychiatric exam: Present normal affect and normal mood Skin Skin exam: Present warm, dry and normal color Lymphatic Lymphatic Findings: no adenopathy Medical Decision Making <Randall Linda MD - Last Filed: 06/15/25 07:08> Medical Records Medical records reviewed: Yes I reviewed the patient's medical records. Screening: Per USPSTF and CDC recommendations, given the prevalence of disease in our region, it is our hospital?s policy to screen for HIV and viral Hepatitis for all patients aged 18 and over and those with ongoing risk factors. Jose Inquiry Pt receiving controlled substance: No Jose was queried for this patient: No Vital Signs: 06/15/25 05:05 06/15/25 06:25 06/15/25 06:30 Temperature 97.8 F Temperature Source Oral Pulse Rate 103 H 98 H Pulse Rate [Left] 100 H Respiratory Rate 16 Blood Pressure 118/63 146/62 H Blood Pressure [Right Arm] 124/64 Blood Pressure Mean 90 Blood Pressure Mean [Right Arm] 84 02 Sat by Pulse Oximetry 97 97 95 Oxygen Delivery Method Room Air 06/15/25 07:00 06/15/25 07:30 06/15/25 08:00 Temperature Temperature Source Pulse Rate 92 H 94 H 96 H Pulse Rate [Left] Respiratory Rate Blood Pressure 162/63 H 131/64 146/66 H Blood Pressure [Right Arm] Blood Pressure Mean Blood Pressure Mean [Right Arm] 02 Sat by Pulse Oximetry 95 94 L 95 Oxygen Delivery Method Lab Data Lab results reviewed: Yes I reviewed the patient's lab results. Lab Results 06/15/25 05:07: WBC 12.2 H, RBC 4.67, Hgb 13.2 L, Hct 40.8 L, MCV 87.4, MCH 28.3, MCHC 32.4, RDW 15.1, Plt Count 163, MPV 11.5 H, Neut % (Auto) 72.4, Lymph % (Auto) 17.5, [place] % (Auto) 6.8, Eos % (Auto) 2.3, Baso % (Auto) 0.3, Neut # (Auto) 8.9 H, Lymph # (Auto) 2.1, [place] # (Auto) 0.8, Eos # (Auto) 0.3, Baso # (Auto) 0.0, Sodium 139, Potassium 4.4, Chloride 103, Carbon Dioxide 24, Anion Gap 16.4 H, BUN 18, Creatinine 1.00, Estimated Creat Clear 79, Estimated GFR 74, Est GFR ( Amer) 89, Glucose 210 H, Calcium 8.9, Magnesium 1.2 L, Total Bilirubin 1.4 H, AST 74 H, ALT 47, Alkaline Phosphatase 179 H, Troponin I < 0.01, Total Protein 8.1, Albumin 4.2, Globulin 3.9 H, Albumin/Globulin Ratio 1.1, Lipase 19930 H, HIV Ag/Ab Combo Qual Negative 06/15/25 05:11: VBG pH 7.30 L, VBG pCO2 48.3, VBG pO2 39.6, VBG HCO3 23.2, VBG Total CO2 24.7, VBG O2 Saturation 69.3, VBG Base Excess -3.2 L, VBG Lactic Acid 4.4 H 06/15/25 05:07 06/15/25 05:07 Orders (Tests/Meds): ED MEDICATIONS Discontinued Medications Generic Name Dose Route Start Last Admin Trade Name Freq PRN Reason Stop Dose Admin Lactated Ringer's 1,000 mls @ 999 mls/hr 06/15/25 05:15 06/15/25 05:24 Lactated Ringer's 1000 Ml Bag IV 06/15/25 06:15 999 mls/hr .Q1H1M ELLIOT Administration Magnesium Sulfate 2 gm in 50 mls @ 150 mls/hr 06/15/25 06:24 06/15/25 06:26 Magnesium Sulfate 2gm/50ml Premix IV 06/15/25 06:43 150 mls/hr ONCE ONE Administration Magnesium Sulfate 2 gm in 50 mls @ 150 mls/hr 06/15/25 06:24 06/15/25 06:48 Magnesium Sulfate 2gm/50ml Premix IV 06/15/25 06:43 150 mls/hr ONCE ONE Administration Iopamidol 80 ml 06/15/25 06:02 06/15/25 06:03 Iopamidol-370 (76%);100ml Bottle IV 06/15/25 06:03 80 ml ONCE ONE Administration Morphine Sulfate 4 mg 06/15/25 05:11 06/15/25 05:24 Morphine 4mg/Ml Syringe IV 06/15/25 05:12 4 mg ONCE ONE Administration Ondansetron HCl 4 mg 06/15/25 05:11 06/15/25 05:23 Ondansetron 4mg/2ml Vial IV 06/15/25 05:12 4 mg ONCE ONE Administration Sodium Chloride 50 ml 06/15/25 06:02 06/15/25 06:03 0.9 % Sodium Chloride 50 Ml Vial IV 06/15/25 06:03 50 ml ONCE ONE Administration Sodium Chloride 10 ml 06/15/25 06:02 06/15/25 06:03 Sodium Chloride 0.9% 10ml Syr (Rad Only) IV 06/15/25 06:03 10 ml ONCE ONE Administration ORDERS Category Date Time Status CT angio abdomen pelvis Stat Cat Scan 06/15/25 05:11 Completed CTA Chest [CT angio chest - dissection] Stat Cat Scan 06/15/25 05:11 Completed POCUS Point of Care (ER Only) Stat Exams 06/15/25 06:45 Completed CBC w/Auto Diff [Complete Blood Count Auto Diff] Stat Lab 06/15/25 05:07 Completed CMP [Comprehensive Metabolic Panel] Stat Lab 06/15/25 05:07 Completed Diarrhea 23 Panel, PCR Stat Lab 06/15/25 05:25 Received HIV Combo Stat Lab 06/15/25 05:07 Completed Lipase Stat Lab 06/15/25 05:07 Completed Magnesium Stat Lab 06/15/25 05:07 Completed Troponin I Q3H Lab 06/15/25 05:07 Completed Troponin I Q3H Lab 06/15/25 09:45 Ordered VBG [Venous Blood Gas] Stat RT 06/15/25 05:11 Completed ECG Data Tracing #1: I reviewed this ECG and interpreted as documented below: Sinus rhythm, rate of 93, first-degree AV block noted no significant ST changes, Q waves in lead III ECG initial impression date: 06/15/25 ECG initial impression time: 05:36 HEART Score History (anamnesis): Slightly suspicious ECG: Non-specific disturbance Age: >65 years Risk factors: Atherosclerosis history Troponin: </= normal limit HEART Score: 5 Medical Decision Narrative: 69-year-old male with history of diabetes, coronary artery disease, COPD, obesity presents for severe epigastric abdominal pain associate with nausea and vomiting and diarrhea. History was obtained via interactive discussion with patient. On arrival, patient is [afebrile, hemodynamically stable, satting appropriately, alert, oriented x4, GCS 15], moving all extremities spontaneously. Full physical exam performed and significant for abdominal distention and tenderness Differential includes but is not limited to ACS, acute aortic syndrome pancreatitis, gastroenteritis, cholecystitis, bowel perforation, partial obstruction. Patient was given morphine, Zofran, 1 L IV fluid bolus for symptomatic management and correction of underlying abnormalities. Workup initiated including CBC CMP lipase troponin diarrhea panel VBG CTA chest abdomen pelvis. On re-evaluation, patient [remains afebrile, HD stable.] Laboratory workup independently interpreted by me and significant for lipase of 40,000, white count of 12, lactate 4.4, mildly elevated anion gap, mag 1.2 AST mildly elevated, bilirubin 1.4, negative initial troponin. Bedside ultrasound was performed which showed some anterior wall thickening, trace pericholecystic fluid, no obvious gallstones. At this time care handed off to oncoming physician. <Maicol Leach MD - Last Filed: 06/15/25 08:17> Vital Signs: 06/15/25 05:05 06/15/25 06:25 06/15/25 06:30 Temperature 97.8 F Temperature Source Oral Pulse Rate 103 H 98 H Pulse Rate [Left] 100 H Respiratory Rate 16 Blood Pressure 118/63 146/62 H Blood Pressure [Right Arm] 124/64 Blood Pressure Mean 90 Blood Pressure Mean [Right Arm] 84 02 Sat by Pulse Oximetry 97 97 95 Oxygen Delivery Method Room Air 06/15/25 07:00 06/15/25 07:30 06/15/25 08:00 Temperature Temperature Source Pulse Rate 92 H 94 H 96 H Pulse Rate [Left] Respiratory Rate Blood Pressure 162/63 H 131/64 146/66 H Blood Pressure [Right Arm] Blood Pressure Mean Blood Pressure Mean [Right Arm] 02 Sat by Pulse Oximetry 95 94 L 95 Oxygen Delivery Method Lab Data Lab Results 06/15/25 05:07: WBC 12.2 H, RBC 4.67, Hgb 13.2 L, Hct 40.8 L, MCV 87.4, MCH 28.3, MCHC 32.4, RDW 15.1, Plt Count 163, MPV 11.5 H, Neut % (Auto) 72.4, Lymph % (Auto) 17.5, [place] % (Auto) 6.8, Eos % (Auto) 2.3, Baso % (Auto) 0.3, Neut # (Auto) 8.9 H, Lymph # (Auto) 2.1, [place] # (Auto) 0.8, Eos # (Auto) 0.3, Baso # (Auto) 0.0, Sodium 139, Potassium 4.4, Chloride 103, Carbon Dioxide 24, Anion Gap 16.4 H, BUN 18, Creatinine 1.00, Estimated Creat Clear 79, Estimated GFR 74, Est GFR ( Amer) 89, Glucose 210 H, Calcium 8.9, Magnesium 1.2 L, Total Bilirubin 1.4 H, AST 74 H, ALT 47, Alkaline Phosphatase 179 H, Troponin I < 0.01, Total Protein 8.1, Albumin 4.2, Globulin 3.9 H, Albumin/Globulin Ratio 1.1, Lipase 74134 H, HIV Ag/Ab Combo Qual Negative 06/15/25 05:11: VBG pH 7.30 L, VBG pCO2 48.3, VBG pO2 39.6, VBG HCO3 23.2, VBG Total CO2 24.7, VBG O2 Saturation 69.3, VBG Base Excess -3.2 L, VBG Lactic Acid 4.4 H Orders (Tests/Meds): ED MEDICATIONS Discontinued Medications Generic Name Dose Route Start Last Admin Trade Name Ryanq PRN Reason Stop Dose Admin Lactated Ringer's 1,000 mls @ 999 mls/hr 06/15/25 05:15 06/15/25 05:24 Lactated Ringer's 1000 Ml Bag IV 06/15/25 06:15 999 mls/hr .Q1H1M ELLIOT Administration Magnesium Sulfate 2 gm in 50 mls @ 150 mls/hr 06/15/25 06:24 06/15/25 06:26 Magnesium Sulfate 2gm/50ml Premix IV 06/15/25 06:43 150 mls/hr ONCE ONE Administration Magnesium Sulfate 2 gm in 50 mls @ 150 mls/hr 06/15/25 06:24 06/15/25 06:48 Magnesium Sulfate 2gm/50ml Premix IV 06/15/25 06:43 150 mls/hr ONCE ONE Administration Iopamidol 80 ml 06/15/25 06:02 06/15/25 06:03 Iopamidol-370 (76%);100ml Bottle IV 06/15/25 06:03 80 ml ONCE ONE Administration Morphine Sulfate 4 mg 06/15/25 05:11 06/15/25 05:24 Morphine 4mg/Ml Syringe IV 06/15/25 05:12 4 mg ONCE ONE Administration Ondansetron HCl 4 mg 06/15/25 05:11 06/15/25 05:23 Ondansetron 4mg/2ml Vial IV 06/15/25 05:12 4 mg ONCE ONE Administration Sodium Chloride 50 ml 06/15/25 06:02 06/15/25 06:03 0.9 % Sodium Chloride 50 Ml Vial IV 06/15/25 06:03 50 ml ONCE ONE Administration Sodium Chloride 10 ml 06/15/25 06:02 06/15/25 06:03 Sodium Chloride 0.9% 10ml Syr (Rad Only) IV 06/15/25 06:03 10 ml ONCE ONE Administration ORDERS Category Date Time Status CT angio abdomen pelvis Stat Cat Scan 06/15/25 05:11 Completed CTA Chest [CT angio chest - dissection] Stat Cat Scan 06/15/25 05:11 Completed POCUS Point of Care (ER Only) Stat Exams 06/15/25 06:45 Completed CBC w/Auto Diff [Complete Blood Count Auto Diff] Stat Lab 06/15/25 05:07 Completed CMP [Comprehensive Metabolic Panel] Stat Lab 06/15/25 05:07 Completed Diarrhea 23 Panel, PCR Stat Lab 06/15/25 05:25 Received HIV Combo Stat Lab 06/15/25 05:07 Completed Lipase Stat Lab 06/15/25 05:07 Completed Magnesium Stat Lab 06/15/25 05:07 Completed Troponin I Q3H Lab 06/15/25 05:07 Completed Troponin I Q3H Lab 06/15/25 09:45 Ordered VBG [Venous Blood Gas] Stat RT 06/15/25 05:11 Completed HEART Score HEART Score: 5 Medical Decision Narrative: 69-year-old male with history of diabetes, coronary artery disease, COPD, obesity presents for severe epigastric abdominal pain associate with nausea and vomiting and diarrhea. History was obtained via interactive discussion with patient. On arrival, patient is [afebrile, hemodynamically stable, satting appropriately, alert, oriented x4, GCS 15], moving all extremities spontaneously. Full physical exam performed and significant for abdominal distention and tenderness Differential includes but is not limited to ACS, acute aortic syndrome pancreatitis, gastroenteritis, cholecystitis, bowel perforation, partial obstruction. Patient was given morphine, Zofran, 1 L IV fluid bolus for symptomatic management and correction of underlying abnormalities. Workup initiated including CBC CMP lipase troponin diarrhea panel VBG CTA chest abdomen pelvis. On re-evaluation, patient [remains afebrile, HD stable.] Laboratory workup independently interpreted by me and significant for lipase of 40,000, white count of 12, lactate 4.4, mildly elevated anion gap, mag 1.2 AST mildly elevated, bilirubin 1.4, negative initial troponin. Bedside ultrasound was performed which showed some anterior wall thickening, trace pericholecystic fluid, no obvious gallstones. At this time care handed off to oncoming physician. This is Dr. Leach at 8:[address] scans read which shows some fluid-filled bowel but no other definitive cause of patient's significant abdominal pain there is cholelithiasis but no radiographic evidence of cholecystitis. As stated above patient has pancreatitis possibly from gallstones. Patient will be admitted to hospital medicine for further evaluation and management. Procedures <Randall Linda MD - Last Filed: 06/15/25 07:08> Risk/Benefits of Procedure(s) Were Explained: Yes Critical Care <Randall Linda MD - Last Filed: 06/15/25 07:08> Critical Care Time Critical Care Time: No <Maicol Leach MD - Last Filed: 06/15/25 08:17> Critical Care Time Critical Care Time: Yes Attestation: On 06/15/25, the high probability of a clinically significant, sudden or life threatening deterioration of the following system(s) required my full and direct attention, intervention and personal management. The time I documented below is in addition to time spent performing reported procedures but includes the following listed in this critical care notation. Total Time Total Critical Care Time: 35
--- NOTE | 2025-06-15 05:11 | CT_ITS ---
PROCEDURE INFORMATION: Exam: CTA Abdomen and Pelvis With Contrast Exam date and time: 06/15/2025 5:54 AM Age: 69 years old Clinical indication: Abdominal pain; Epigastric; Additional info: Severe epigastric pain, n/v TECHNIQUE: Imaging protocol: Computed tomographic angiography of the abdomen and pelvis with contrast. Exam focused on the arteries. 3D rendering (Not supervised by radiologist): MIP and/or 3D reconstructed images were created by the technologist. Radiation optimization: All CT scans at this facility use at least one of these dose optimization techniques: automated exposure control; mA and/or kV adjustment per patient size (includes targeted exams where dose is matched to clinical indication); or iterative reconstruction. Contrast material: ISOVUE; Contrast volume: 80 ml; Contrast route: INTRAVENOUS (IV); COMPARISON: CT ABDOMEN PELVIS W CON 11/08/2023 12:54 AM FINDINGS: Diaphragm: Hiatal hernia noted. Aorta: The aorta demonstrates moderate atherosclerotic calcification. Celiac trunk and mesenteric arteries: No occlusion or significant stenosis. Renal arteries: No occlusion or significant stenosis. Right iliac arteries: No occlusion or significant stenosis. Left iliac arteries: No occlusion or significant stenosis. Veins: Portal vein is patent. Liver: No focal hepatic lesions. Gallbladder and biliary ducts: Cholelithiasis noted without pericholecystic fluid/stranding. Pancreas: Unremarkable. No mass. No ductal dilation. Spleen: No splenomegaly. Adrenal glands: The adrenal glands are normal. Kidneys and ureters: Nephrograms are symmetric. No nephrolithiasis or hydroureteronephrosis on either side. No solid lesions Stomach and bowel: There is liquid stool in the ascending colon can be seen in the context of infectious/inflammatory colitis. Appendix: A normal appendix is identified. Intraperitoneal space: There is no evidence of free intraperitoneal or pelvic fluid. Lymph nodes: Unremarkable. No enlarged lymph nodes. Urinary bladder: The bladder demonstrates diffuse wall thickening consistent with chronic outlet obstruction. Reproductive: Unremarkable as visualized. Bones/joints: No acute fracture. Soft tissues: Unremarkable. Other findings: For findings in the chest, please refer to the separately dictated chest CT report under a separate accession number. IMPRESSION: 1. No aortic aneurysm or dissection. Major aortic branches are patent without evidence of mesenteric ischemia. 2. There is liquid stool in the ascending colon can be seen in the context of infectious/inflammatory colitis. 3. Hiatal hernia. Cholelithiasis
--- NOTE | 2025-06-15 05:11 | CT_ITS ---
PROCEDURE INFORMATION: Exam: CTA Chest With Contrast Exam date and time: 06/15/2025 5:54 AM Age: 69 years old Clinical indication: Pain; Other: Epigastric; Additional info: Severe epigastric pain, n/v TECHNIQUE: Imaging protocol: Computed tomographic angiography of the chest with contrast. Exam focused on the arteries. 3D rendering (Not supervised by radiologist): MIP and/or 3D reconstructed images were created by the technologist. Radiation optimization: All CT scans at this facility use at least one of these dose optimization techniques: automated exposure control; mA and/or kV adjustment per patient size (includes targeted exams where dose is matched to clinical indication); or iterative reconstruction. Contrast material: ISOVUE; Contrast volume: 80 ml; Contrast route: INTRAVENOUS (IV); COMPARISON: CT ANGIO CHEST 08/13/2019 11:07 PM FINDINGS: Pulmonary arteries: No evidence of filling defects to suggest pulmonary emboli. Aorta: Aorta is nonaneurysmal. Lungs: Bibasilar subsegmental atelectasis noted. Scattered pulmonary granulomas noted Pleural spaces: No pneumothorax. No pleural effusion. Heart: Unremarkable. No cardiomegaly. No pericardial effusion. Heart RV/LV ratio: The RV/LV ratio is less than 1. Coronary arteries: Postoperative changes from prior coronary artery bypass graft. Lymph nodes: Borderline prominent, multi station lymph nodes likely reactive. Diaphragm: Hiatal hernia noted. Bones/joints: Sternotomy wires are intact. No acute osseous abnormality. Soft tissues: Unremarkable. IMPRESSION: 1. No evidence of filling defects to suggest pulmonary emboli. 2. No aortic aneurysm or dissection. 3. Hiatal hernia
--- OUTSIDE RECORDS SUMMARY | 2025-06-15 05:14 | XMS_ITS | Clinical Summary ---
[facility] Organization [facility] Address [address] [place] [id number] Care Team Providers Care Inspector Soldering Name Role Phone Provider, No Known Primary Care Provider Unavail able Allergies No known active allergies Medications atorvastatin (LIPITOR) 80 MG tablet Take 80 mg by mouth every night at bedtime. 0 Active cetirizine (zyrTEC) 10 MG tablet 1 tablet Daily. 0 Active cephalexin (KEFLEX) 500 MG capsule TAKE ONE CAPSULE BY MOUTH EVERY TWELVE HOURS FOR 10 DAYS 0 Active DAPTOmycin (CUBICIN) 500 MG injection 0 Active Prodigy No Coding Blood Gluc test strip 1 each by Other route 3 (Three) Times a Day. 0 Active furosemide (LASIX) 40 MG tablet Take 40 mg by mouth Daily. 0 Active gabapentin (NEURONTIN) 400 MG capsule Take 400 mg by mouth 3 (Three) Times a Day. 0 Active HYDROcodone-laura taminophen (NORCO) 7.5-325 MG per tablet Take 1 tablet by mouth 3 (Three) Times a Day As Needed. 0 Active NovoLOG Mix 70/30 FlexPen (70-30) 100 UNIT/ML suspension pen-injector injection Inject 48 units before breakfast and 40units before dinner Max Daily [id number] units 0 Active TRUEplus Pen [place] 31G X 5 MM misc USE with insulin TWICE DAILY 0 Active Prodigy Twist Top Lancets 28G misc 1 each by Other route 3 (Three) Times a Day. 0 Active lisinopril (PRINIVIL,ZESTR IL) 5 MG tablet Take 5 mg by mouth Daily. 0 Active metFORMIN (GLUCOPHAGE) 1000 MG tablet Take 1,000 mg by mouth 2 (Two) Times a Day. 0 Active metoprolol tartrate (LOPRESSOR) 25 MG tablet Take 25 mg by mouth 3 (Three) Times a Day. 0 Active omeprazole (priLOSEC) 20 MG capsule Take 20 mg by mouth 2 (Two) Times a Day. 0 Active potassium chloride (K-DUR,KLOR-CON ) 20 MEQ CR tablet 1 tablet Daily. 0 Active aspirin 81 MG EC tablet Take 81 mg by mouth Daily. Active Active Problems Problem Noted Date Diagnosed Date Type 2 diabetes mellitus wit h diabetic peripheral angiopathy without gangrene, without long-term current use of insulin 09/06/2020 Overview (09/07/2020): Recent a1c was 8.5. A goal for him would be 7.5 Recent infection and surgery certainly are playing a role in preventing him from getting to goal. I would have him stop the sfu And he can increase the insulin. He can restrict His carbs to 150-180 grams per day and gradually work to increase his physical activity once his foot heals Family History Medical History Relation Name Comments Diabetes Brother No Known Problems Father Heart disease Mother Diabetes Sister Relation Name Status Comments Brother Father Mother Sister Alive Social History Tobacco Use Types Packs/Day Years Used Date Smoking Tobacco: Former Cigarettes 3 29 1 970 - 1998 Smokeless Tobacco: Never Alcohol Use Standard Drinks/Week Comments Not Currently 0 (1 standard drink = 0.6 oz pur e alcohol) Abuse Screen Answer Date Recorded Unsafe at Home or Work/School Not on file Feels Threatened by Someone? Not on file 09/2023 Does Anyone Keep You from Co ntacting Others or Doint Things Outside the Home? Not on file 08/12/2023 Physical Sign of Abuse Present Not on file 1 Housing Stability Answer Date Recorded Current Living Arrangements Not on file 08/02 Potentially Unsafe Housing Conditions Not on homero e 08/12/2023 Family and Community Support Answer Reginaldo e Recorded Help with Day-to-Day Activities Not on file 08/12/2023 Lonely or Isolated Not on file 08/12/2023 Employment Answer Date Recorded Do you want help finding or keeping work or a ricardo b? Not on file 08/12/2023 Disabilities Answer Date Recorded Concentrating, Remembering, or Making Decisions Difficulty Not on file 08/12/2023 Doing Errands Independently Difficulty Not on fi le 08/12/2023 Education Answer Date Recorded Help with school or training? Not on file Preferred Language Not on file 08/12/2023 Sex and Gender Information Value Date Recorded Sex Assigned at Not on file Legal Sex Male 12:01 PM EDT Gender Identity Not on file Sexual Orientation Not on file Last Filed Vital Signs Vital Sign Reading Time Taken Comments Blood Pressure 124/76 09/06/2020 1:22 PM EST Pulse 61 09/06/2020 1:22 PM EST Temperature 37.2 C (98.9 F) 09/06/2020 1:22 PM EST Respiratory Rate - - Oxygen Saturation 99% 09/06/2020 1:22 PM EST Inhaled Oxygen Concentration - - Weight 75.7 kg (166 lb 12.8 oz) 09/06/2020 1:22 PM EST Height 175.3 cm (5' 9 ) 09/06/2020 1:22 PM EST Body Mass Index 24.63 09/06/2020 1:22 PM EST Plan of Treatment Health Maintenance Due Date Last Done Comments COLOGUARD 1999 COLON CANCER SCREENING 5 YEAR SIGMOIDOSCOPY 1999 COLONOSCOPY 1999 COLORECTAL CANCER SCREENING 1999 CT COLONOGRAPHY 1999 FECAL OCCULT BLOOD TEST 1999 FIT Testing (1 year) 1999 ZOSTER VACCINE (1 of 2) 2004 Pneumococcal Vaccine 50+ (2 of 2 - PCV) 2017 0 2016 AAA SCREEN ONCE 2019 TDAP/TD VACCINES (1 - Tdap) 01/30/2020 01/29/2020 ANNUAL PHYSICAL 09/06/2020 HEPATITIS C SCREENING 09/06/2020 COVID-19 Vaccine (1 - 2023- season) 2024 INFLUENZA VACCINE 08/02/2025 2016 Insurance [facility] MEDIC[facility] A & B Care Teams Inspector Soldering Relationship Specialty Start Date End Date Provider, No Known [facility] [place] [address] PCP - General 09/06/20
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
--- OUTSIDE RECORDS SUMMARY | 2025-06-15 05:14 | XMS_ITS | Clinical Summary ---
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 coli infection, non-shiga toxing-produc ing B96.29 (ICD-10-CM ) 06/19 Active 06/19 Chari Vazquez Other Escherichia coli [E. coli] as the cause of diseases classified elsewhere Chronic osteomyelitis , right foot M86.671 (ICD-10-CM ) 06/19 Active 06/19 Chari Vazquez Other chronic osteomyelitis, right ankle and foot Staph simulans infection B95.7 (ICD-10-CM ) 06/19 Active 06/19 Chari Vazquez Other staphylococcus as the cause of diseases classified elsewhere DM II with diabetic PVD 095012399 (SNOMED CT) 06/19 Active 06/19 Chari Vazquez Peripheral vascular disease DM II with diabetic peripheral neuropathy E11.42 (ICD-10-CM ) 06/19 Active 06/19 Chari Vazquez Type 2 diabetes mellitus with diabetic polyneuropathy Secondary thrombocytope suha 60809231 (SNOMED CT) 06/19 Active 06/19 Chari Vazquez Acquired thrombocytopenia Medications Medication Instructions Start Date Stop Date Generic Name NDC Provider ROCEPHIN SOLUTION RECONSTITUTED Rocephin 2GM IV Q24hrs - [facility] CEFTRIAXONE SODIUM SOLR [id number] Donna Patel RN CUBICIN 500 MG INTRAVENOUS SOLUTION RECONSTITUTED Cubicin 500 mg IV daily - [facility] DAPTOMYCIN [id number] Donna Patel RN CUBICIN 500 MG INTRAVENOUS SOLUTION RECONSTITUTED Cubicin 500 mg IV daily - [facility] DAPTOMYCIN [id number] Armani P ROCEPHIN SOLUTION RECONSTITUTED Rocephin 2GM IV Q24hrs - [facility] CEFTRIAXONE SODIUM SOLR [id number] Armani P ROCEPHIN SOLUTION RECONSTITUTED Rocephin 2GM IV Q24hrs - [facility] CEFTRIAXONE SODIUM SOLR [id number] Antonia Ramos CUBICIN 500 MG INTRAVENOUS SOLUTION RECONSTITUTED Cubicin 500 mg IV daily - [facility] DAPTOMYCIN [id number] Antonia Ramos METFORMIN HCL 500 MG TABS Twice daily. METFORMIN HCL [id number] Mary Olguin LISINOPRIL 5 MG TABS Daily. LISINOPRIL [id number] Mary Olguin GLIMEPIRIDE 4 MG TABS Twice daily. GLIMEPIRIDE [id number] Mary Olguin NEURONTIN 400 MG CAPS Twice daily. GABAPENTIN [id number] Mary Olguin CITALOPRAM HYDROBROMIDE 20 MG TABS Daily. CITALOPRAM HYDROBROMIDE [id number] Mary Olguin ASPIRIN 325 MG TABS Daily. ASPIRIN [id number] Mary Olguin PROMETHAZINE HCL 25 MG TABS Three times daily as needed. PROMETHAZINE HCL [id number] Mary Olguin PRILOSEC 20 MG ORAL CAPSULE DELAYED RELEASE Daily. OMEPRAZOLE [id number] Mary Olguin NITROSTAT SUBL As needed. NITROGLYCERIN SUBL [id number] Mary Olguin FLORASTOR 250 MG CAPS Twice daily. SACCHAROMYCES BOULARDII [id number] Mary Olguin METOPROLOL TARTRATE 25 MG TABS Twice daily. METOPROLOL TARTRATE [id number] Mary Olguin LOVENOX 40 MG/0.4ML SUBCUTANEOUS SOLUTION Daily for 2 weeks for DVT prevention. ENOXAPARIN SODIUM [id number] Mary Olguin OXYCODONE HCL 5 MG TABS 7.5 every 4 hours as needed. OXYCODONE HCL [id number] Mary Olguin Medications Administered No information available. Allergies, Adverse Reactions, Alerts No information available. Results Date Name Value Unit Range Flag Description Clinical Lists Update: Prelo ad HGBA1C 8.7 % Hemoglobin A1c/Hemoglobin, total in Blood - % Chart Maintenance: Labs 06/23 ABS NEUTROPH 2.2 10*3/uL Neutroph ils [#/volume] in Blood Chart Maintenance: CMP, CBC 06/29 BASOPHIL % 0.5 % Basophils/ 100 leukocytes in Blood by Manual count % EOS AUTO 4.0 % Eosinophil s/100 leukocytes in Blood by Automated count MONOCYTE % 14.5 % Monocytes/ 100 leukocytes in Blood by Automated count Chart Maintenance: CPK from 07/13/17 CPK 65 U/L Creatine silva se [Enzymatic activity/volume] in Serum or Plasma Chart Maintenance: labs draw n 07/20 LYMPHCT AUTO 1.1 10*3/mm3 Lymphoc ytes [#/volume] in Blood by Automated count Chart Maintenance: labs lissett ected 07/27 BILI TOTAL 0.4 mg/dL Bilirubin. total [Mass/volume] in Serum or Plasma ALK PHOS 124 U/L Alkaline rubens sphatase [Enzymatic activity/volume] in Blood SGPT (ALT) 24 U/L Alanine aminotransferase [Enzymatic activity/volume] in Serum or Plasma SGOT (AST) 16 U/L Aspartate aminotransferase [Enzymatic activity/volume] in Serum or Plasma CALCIUM 9.3 mg/dL Calcium [Mole s/volume] in Serum or Plasma POTASSIUM 4.2 mmol/L Potassium [Moles/volume] in Serum or Plasma SODIUM 136 mmol/L Sodium [Moles /volume] in Serum or Plasma CREATININE 0.7 mg/dL Creatinine [Mass/volume] in Serum or Plasma BUN 16.1 mg/dL Urea nitrogen [Mass/volume] in Serum or Plasma GLUCOSE SER 358 mg/dL Glucose [ Mass/volume] in Serum or Plasma LYMPHS % 17.3 % Lymphocytes/ 100 leukocytes in Blood by Automated count PMN % 67.2 % Neutrophils/1 00 leukocytes in Blood by Automated count PLATELETS 160 10*3/mm3 Platelets [#/volume] in Blood by Automated count HCT 37.7 % Hematocrit [V olume Fraction] of Blood by Automated count HGB 12.9 g/dL Hemoglobin [Mass/volume] in Blood RBC 4.54 10*6/mm3 Erythrocytes [#/volume] in Blood by Automated count WBC 5.1 10*3/mm3 Leukocytes [ #/volume] in Blood by Automated count Office Visit: 11 MEDS REVIEW Done Documenta tion of current medications (procedure) ORALTOBACUSE Never Tobacco smoking status SMOK STATUS Never smoker Toba accountant manager smoking status Plan of Care Type Date Detail Pending order PICC Removal Pending order Discontinue IV a ntibiotics Pending order Continue IV anti biotics Pending order Weekly Labs (Con tinue) Pending order Weekly PICC Line Care Pending order Continue IV anti biotics Pending order Weekly Labs (Con tinue) Pending order Weekly PICC Line Care Pending order Continue IV anti biotics Pending order Weekly Labs (Con tinue) Pending order Weekly PICC Line Care Pending order Continue IV anti biotics Pending order Weekly Labs (Con tinue) Pending order Weekly PICC Line Care Pending order Hepatitis C Atb: (ICD 10 Code: Z11.59) Procedures Code Procedure Name Date Entry Date CPT-ca Continue IV antibiotics 2016 CPT-cwl Weekly Labs (Continue) 07/22 CPT-wpc Weekly PICC Line Care 0 07/22 CPT-ca Continue IV antibiotics 2016 CPT-cwl Weekly Labs (Continue) 07/15 CPT-wpc Weekly PICC Line Care 0 07/15 CPT-ca Continue IV antibiotics 2016 CPT-cwl Weekly Labs (Continue) 07/09 CPT-wpc Weekly PICC Line Care 07/09 CPT-ca Continue IV antibiotics 2016 CPT-cwl Weekly Labs (Continue) 06/29 CPT-wpc Weekly PICC Line Care 06/29 [id number] Hepatitis C Atb: (ICD 10 Code: Z11.59) 20 18/06/25 Vital Signs Date Name Value Unit Description BMI (Body Mass Index) 25.57 kg/m2 Bod y Mass Index (Ratio) Body Temperature 97.7 [degF] temperat ure E&M BP Diastolic 78 mm[Hg] blood pressu re, diastolic BP Systolic 131 mm[Hg] blood pressur e, systolic Heart Rate 79 /min pulse rate Height 69 [in_us] height E&M Respiratory Rate 16 /min respirat ory rate E&M Weight Measured 173.2 [lb_av] weight E& M Weight Measured 173.2 [lb_av] weight E& M Immunizations No information available. Advance Directives Directive Description Start Date NO DIRECTIVES AT THIS TIME
--- OUTSIDE RECORDS SUMMARY | 2025-06-15 05:14 | XMS_ITS | Referral Summary ---
Author Organization [employer] ([place], [place], [place], [place]) Address [address] [place] [address] Care Team Providers Care Steam Train Driver Name Role Phone Silvio Mccain MD Primary Care Provider [phone] Silvio Mccain MD Unavailable Social History Tobacco Use Types Packs/Day Years Used Date Smoking Tobacco: Never Assessed Sex and Gender Information Value Date Recorded Sex Assigned at Not on file Legal Sex Male 6:14 PM CDT Gender Identity Not on file Sexual Orientation Not on file Plan of Treatment Not on file Insurance BLUE CROSS/BLUE SHIELD [facility] Care Teams Steam Train Driver Relationship Specialty Start Date End Date Silvio Mccain MD [address] [place] [id number] PCP - General Family Medicine 12/30/22 Silvio Mccain MD [address] [place] [id number] Referring Physician Family Medicine 12/30/22
--- OUTSIDE RECORDS SUMMARY | 2025-06-15 05:14 | XMS_ITS | Clinical Summary ---
Author Organization [employer] ([place], [place], [place], [place]) Address [address] [place] [address] Care Team Providers Care Invoice Clerk Name Role Phone Silvio Mccain MD Primary Care Provider [phone] Silvio Mccain MD Unavailable [phone] Social History Tobacco Use Types Packs/Day Years Used Date Smoking Tobacco: Never Assessed Sex and Gender Information Value Date Recorded Sex Assigned at Not on file Legal Sex Male 6:14 PM CDT Gender Identity Not on file Sexual Orientation Not on file Plan of Treatment Health Maintenance Due Date Last Done Comments CT Colonography 1954 Colonoscopy 1954 Colorectal Cancer Screening 1954 FOBT/FIT 1954 Fit-DNA (Cologuard) 1954 Sigmoidoscopy 1954 Depression Screening (12+) 1966 Tobacco Cessation Counseling and Screening (12+) 1966 Shingles Vaccine (Zoster) (1 of 2) 2004 Pneumococcal 50+ years (2 of 2 - PCV) 2017 COVID-19 VACCINE (3 - season) 2024, 12/27/2020 Falls Risk Screening 11/02/2024 Influenza Vaccine (#1) 2025 2016 Respiratory Syncytial Virus (RSV) Adult or (1 - 1-dose 75+ series) 2029 DTAP/TDAP/TD VACCINES (2 - Td or Tdap) 01/28/2030 Insurance BLUE CROSS/BLUE SHIELD [facility] Care Teams Invoice Clerk Relationship Specialty Start Date End Date Silvio Mccain MD [address] [place] [id number] PCP - General Family Medicine 12/30/22 Silvio Mccain MD [address] [address] Referring Physician Family Medicine 12/30/22
[2025-06-15] MEDS: ONDANSETRON 4MG/2ML VIAL 4 MG IV (05:23)
[2025-06-15] MEDS: MORPHINE 4MG/ML SYRINGE 4 MG IV (05:24)
[2025-06-15] MEDS: LACTATED RINGERS 1000ML 1,000 ML 999 ML IV (05:24)
[2025-06-15 05:30] LABS: VBG HCO3 23.2 mmol/L (23-30); VBG PCO2 48.3 mmol/L (35-51); VBG PH 7.30 mmol/L (7.31-7.41); VBG PO2 39.6 mmol/L (28-40)
[2025-06-15 05:33] LABS: Albumin Level 4.2 g/dl (3.5-5.0); Chloride 103 mmol/L (98-107); Potassium 4.4 mmoL/L (3.5-5.1); Sodium 139 mmol/L (136-145)
[2025-06-15 05:34] LABS: Lactate Venous 4.4 mmol/L (0.4-2.0)
[2025-06-15 05:35] LABS: Magnesium 1.2 mg/dl (1.6-2.3)
[2025-06-15 05:36] LABS: Alanine Aminotransferase 47 U/L (12-78); Albumin/Globulin Ratio 1.1 (1.1-1.8); Alkaline Phosphatase 179 U/L (38-126); Anion Gap 16.4 mEq/L (5-15); Aspartate Amino Transferase 74 U/L (17-59); Bilirubin,Total 1.4 mg/dl (0.2-1.3); Blood Urea Nitrogen 18 mg/dl (9-20); Carbon Dioxide 24 mmol/L (22.0-30.0); Creatinine Clearance Estimated 79 mL/min (50-200); Creatinine,Serum 1.00 mg/dl (0.66-1.25); Estimated Glomerular Filt Rate 74 ml/min (>60); GFR (African American) 89 ML/MIN (>60); Globulin 3.9 g/dL (1.3-3.2); Total Protein,Serum 8.1 g/dl (6.3-8.2)
--- NOTE | 2025-06-15 05:36 | ECG_ITS ---
APPROVED REPORT Exam: Resting ECG HR:93 bpm ECG Measurements Heart Rate 93 AXES KS 139 P -79 QRSd 97 QRS 82 QT 367 T 17 QTc 418 Conclusion JUNCTIONAL RHYTHM INFERIOR MYOCARDIAL INFARCTION , OF INDETERMINATE AGE [40+ ms Q WAVE AND/OR ST/T ABNORMALITY IN II/aVF] ABNORMAL ECG UNCONFIRMED REPORT Electronically signed by : LAKSHMI WHITTINGTON, 06/16/2025 00:33:36
[2025-06-15 05:37] LABS: Calcium 8.9 mg/dl (8.4-10.2); Glucose 210 mg/dl (74-100)
[2025-06-15 05:54] LABS: Hematocrit 40.8 % (42.0-52.0); Hemoglobin 13.2 g/dL (14.1-18.0); Immature Granulocytes % 0.7 %; Mean Corpuscular HGB Conc 32.4 g/dL (31.8-35.4); Mean Corpuscular Hemoglobin 28.3 pg (27.0-31.2); Mean Corpuscular Volume 87.4 fl (80-94); Nucleated Red Blood Cells % 0 %; Platelet Count 163 K/mm3 (142-424); Red Blood Count 4.67 M/mm3 (4.60-6.20); Red Cell Distribution Width-SD 47.6 fL; White Blood Count 12.2 K/mm3 (4.8-10.8)
[2025-06-15] MEDS: 0.9 % SODIUM CHLORIDE 50 ML VIAL IV (06:03)
[2025-06-15] MEDS: IOPAMIDOL-370 (76%);100ML BOTTLE 80 ML IV (06:03)
[2025-06-15] MEDS: SODIUM CHLORIDE 0.9% 10ML SYR (RAD ONLY) 10 ML IV (06:03)
[2025-06-15] MEDS: MAGNESIUM SULFATE IN WATER 2 GM/50 ML PIGGYBACK IV ×2 (06:26→06:48)
[2025-06-15 06:33] LABS: Adenovirus F 40/41, stool Not Detected (NotDetected); Clostridium Difficile A/B, PCR Not Detected (NotDetected); Cyclospora Cayetanesis Not Detected (NotDetected); Plesimonas Shigalloides, PCR Not Detected (NotDetected); Salmonella, PCR Not Detected (NotDetected); Shiga-like toxin E coli Not Detected (NotDetected); Shigella Enterovasive E coli Not Detected (NotDetected); Vibrio, PCR Not Detected (NotDetected); Yersinia Entercolitica, PCR Not Detected (NotDetected)
[2025-06-15 06:43] LABS: Lipase 40867 U/L (23-300)
[2025-06-15 07:03] LABS: Troponin I < 0.01 ng/ml (0.00-0.034)
--- NOTE | 2025-06-15 07:24 | PC.NURSE ---
patient provided with ice chips at this time per request.
--- NOTE | 2025-06-15 08:14 | PC.NURSE ---
dr alonso speaking with hospitalist for admission
--- NOTE | 2025-06-15 08:15 | US_ITS ---
FINAL REPORT TECHNIQUE: Sonographic images of the right upper quadrant were obtained. CLINICAL HISTORY: Acute pancreatitis COMPARISON: CTA abdomen earlier same day FINDINGS: PANCREAS: Not well seen. No peripancreatic fluid collection.. LIVER: Mildly fatty infiltrated. Slightly nodular contour. No focal hepatic lesion. No intrahepatic biliary ductal dilatation. Portal vein is patent. GALLBLADDER: Distended. Gallstones and gallbladder wall thickening measuring up to 7 mm. No pericholecystic fluid.. COMMON DUCT: 4 mm. Normal for age. RIGHT KIDNEY: The right kidney measures 9.7 cm. There is no hydronephrosis, mass, or stone. FREE FLUID: None. IMPRESSION: Distended gallbladder with gallstones and gallbladder wall thickening. Cholecystitis not excluded. Fatty liver with slightly nodular contour. Cirrhosis not excluded. Reviewed, Interpreted and Dictated by Yen Green MD Transcribed by Leeann Luevano Authenticated and [facility]
--- NOTE | 2025-06-15 08:15 | PC.NURSE ---
SAFETY GLASS INSTALLER NOTIFIED OF ADMISSION
--- NOTE | 2025-06-15 08:17 | PC.NURSE ---
DR ALDANA AT BEDSIDE TO UPDATE PT
--- NOTE | 2025-06-15 08:27 | P.HP_ITS ---
<Statement entered by Regino Alfaro MD - 06/20/25 11:45> Personally evaluated patient and agree with the plan of care as outlined by the MAIL AGENT. History of Present Illness *Admission Date: 06/15/25 *Reason for visit:: Pancreatitis *History of present illness: Mr. Eaton is a 69-year-old male who presented to the emergency department today after multiple episodes of diarrhea, nausea, vomiting, and abdominal pain. He has a primary medical history of COPD, insulin-dependent diabetes, coronary artery disease, hypertension, chronic pain. He states that he has been having the symptoms for approximately 2 days but worse throughout the night last night. He denies fever, chills, urinary symptoms, chest pain, shortness of breath. Workup in the emergency department revealed a significantly elevated lipase of almost 40,000. Mild leukocytosis of 12.2, hypomagnesemia of 1.2, lactic 4.4. LFTs very slightly elevated, AST 74. Patient did have diarrhea panel which showed positive for Enteroaggregative E. Coli. In addition his right upper quadrant ultrasound showed distended gallbladder with gallstones and gallbladder wall thickening. Patient was admitted to hospital medicine for further workup and gastroenterology consult. [facility] Disclaimer: The information contained in this section may have been updated after the patient was seen, as this information can be updated by other users. Medical History (Updated 06/15/25 @ 16:11 by Randolph Curtis II, MD) Hyperlipidemia Hypertension IDDM (insulin dependent diabetes mellitus) Nasal drainage Erectile dysfunction Pre-ulcerative calluses Arthritis Sinusitis Splenomegaly Sepsis Colitis Left shoulder pain Edema Abnormal electrocardiogram [ECG] [EKG] Sinus mucosal thickening Diastasis recti Sunburn Deviated nasal septum Chronic sinusitis Incurvated nail COPD (chronic obstructive pulmonary disease) Shoulder pain, bilateral TMJ arthralgia Cervical paraspinous muscle spasm Pharyngitis Acute bronchitis Otitis externa Cerumen impaction Acute sinusitis Diabetic foot Callus of foot Muscle strain Rib pain on right side Bruising Pain of right upper arm Pain in right shoulder Neck Pain Callus Psoriasis History of diabetes mellitus, type II History of hyperlipidemia History of hypertension Cellulitis of left foot Carpal tunnel syndrome of right wrist Cellulitis VRE (vancomycin resistant enterococcus) culture positive Gas gangrene of foot Foot abscess, right Severe sepsis with acute organ dysfunction Cellulitis of right foot Diabetic ulcer of left foot Diabetic foot Type 2 diabetes mellitus with diabetic polyneuropathy, with long-term current use of insulin Amputation of toe of left foot Other acute osteomyelitis, right ankle and foot Diabetic ulcer of toe of right foot associated with type 2 diabetes mellitus, limited to breakdown of skin Diabetes mellitus Foot osteomyelitis, right Diabetic infection of right foot Diabetic ulcer of right foot Encounter for wound care Onychomycosis Nail dystrophy Overweight (BMI 25.0-29.9) Left foot pain Hammertoes of both feet Diabetes mellitus with diabetic neuropathy, with long-term current use of insulin Amputation of one or more toes Equinus contracture of left ankle Gangrene of toe of left foot Diabetic foot infection Cellulitis and abscess of foot Infected surgical wound Dyspnea CAD, multiple vessel Non-STEMI (non-ST elevated myocardial infarction) Surgical History History of nasal septoplasty Status post nasal septoplasty History of amputation of toe History of amputation of toe Hx of cataract surgery Status post foot surgery History of amputation of right great toe S/P CABG x 6 Family History Mother Heart attack Social History (Updated 06/15/25 @ 10:[address]re, SANDY) Smoking Status: Former smoker tobacco type: cigarettes packs per day: 3 pack- years: 75 years smoked: 25 smoking status stop date: 11/02/2001 how long ago did patient quit smokin second hand exposure: Yes alcohol intake: former substance use type: denies use current occupational status: disabled Travel in the last 8 weeks?: None household members: none housing: apartment caffeine: Yes Have you lived/traveled outside US in past 30 days?: No Contact w/someone who lives/traveled outside US past 30 days?: No Exposure to someone with infectious disease in past 14 days?: No Do you have a fever (greater than 100.4 F or 38 C)?: No Have you tested positive for COVID-19?: No Exposed to someone with COVID-19 in past 14 days?: No Do you have a sore throat?: No Do you have a cough?: No Do you have any weakness?: No Are you experiencing any nausea/vomitting?: No Do you have any diarrhea?: Yes Are you experiencing any unusual bleeding?: No Do you have any muscle aches/pain?: No Do you have any abdominal pain?: Yes Are you experiencing loss of taste or smell?: No Other Medical History Have you received the Flu Vaccine for this season: No Have you received the Pneumonia Vaccine: Yes Review of Systems Constitutional Constitutional: Denies body ache(s), Reports chills, Denies fever(s), Reports poor appetite, Reports lethargy and Reports malaise ENT Ears, Nose, Mouth, and Throat: Denies post nasal drip and Denies sore throat *Cardiovascular Cardiovascular: Denies chest pain and Denies dyspnea *Respiratory Respiratory: Denies dyspnea *Gastrointestinal Gastrointestinal: Denies coffee ground emesis, Reports cramping, Reports diarr hea, Denies hematemesis, Denies hematochezia, Denies melena and Reports vomiting *Genitourinary Genitourinary: Denies dysuria, Denies urinary frequency, Denies urinary incontinence and Denies urinary urgency Meds Home Medications and Allergies Home Medications ?Medication ?Instructions ?Recorded ?Confirmed ?Type lancets 28 gauge (FreeStyle #100 ea 04/01/22 06/06/25 History Lancets) gabapentin 800 mg tablet 800 mg PO QID Pain 07/02/23 06/15/25 History blood sugar diagnostic (OneTouch #100 ea 11/18/2303/26 Rx Ultra Test strips) blood-glucose meter (OneTouch #1 ea 11/18/23 06/06/25 Rx Ultra2 Meter) lancets 30 gauge (OneTouch #100 ea 11/18/23 06/06/25 R x UltraSoft 2 Lancet) pen needle, diabetic 31 gauge x #50 ea 06/29/24 Rx 3/16 (Easy Comfort [place]) blood sugar diagnostic (True #100 ea 07/01/24 06/06/25 Rx Metrix Glucose Test Strip) blood-glucose meter (True Metrix #1 ea 07/01/24 Rx Air Glucose Meter) lancets 33 gauge (TRUEplus Lancets) #100 ea 07/01/24 0 06/06/25 Rx hydrocodone 10 mg-acetaminophen 1 tab PO QID 12/28/24 06/15/25 History 325 mg tablet albuterol sulfate 90 mcg/actuation 2 inh inhalation Q6 HP PRN 05/27/25 08/14/25 Rx aerosol inhaler shortness of breath or wheez ing #6.7 grams levocetirizine 5 mg tablet 5 mg PO DAILY 90 days #90 t abs 06/12/25 06/15/25 Rx potassium chloride 20 mEq 20 meq PO DAILY 90 days #90 tabs 06/12/25 06/15/25 Rx tablet,extended release atorvastatin 20 mg tablet 20 mg PO HS 06/15/25 5 History furosemide 40 mg tablet 40 mg PO DAILY 06/15/2506/02 History insulin glargine U-300 conc 300 130 unit SQ DAILY 06/0206/15/25 History unit/mL (3 mL) subcutaneous pen (Toujeo Max U-300 SoloStar) ipratropium 0.5 mg-albuterol 3 mg 3 ml inhalation BID 06/15/25 06/15/25 History (2.5 mg base)/3 mL nebulization soln lisinopril 5 mg tablet 5 mg PO DAILY 06/15/2506/15 History metoprolol tartrate 25 mg tablet 25 mg PO BID 06/15/25 06/15/25 History omeprazole 20 mg capsule,delayed 20 mg PO BID 06/15/25 06/15/25 History release New Prescriptions to Start Prescriptions: Allergies Allergy/AdvReac Type Severity Reaction Status Date / Time No Known Allergies Allergy Verified 06/06/25 08:36 Exam Data for Last 24 hours Vital signs and Labs for Last 24 Hours: Temp Pulse Resp BP Pulse Ox O2 Del Method 97.8 F 96 H 16 146/66 H 95 Room Air 06/15/25 05:05 06/15/25 08:00 06/15/25 05:05 06/15/25 08:00 06/15/25 08:00 06/15/25 05:05 Laboratory Results - last 24 hr 06/15/25 05:07: WBC 12.2 H, RBC 4.67, Hgb 13.2 L, Hct 40.8 L, MCV 87.4, MCH 28.3, MCHC 32.4, RDW 15.1, Plt Count 163, MPV 11.5 H, Neut % (Auto) 72.4, Lymph % (Auto) 17.5, [place] % (Auto) 6.8, Eos % (Auto) 2.3, Baso % (Auto) 0.3, Neut # (Auto) 8.9 H, Lymph # (Auto) 2.1, [place] # (Auto) 0.8, Eos # (Auto) 0.3, Baso # (Auto) 0.0, Sodium 139, Potassium 4.4, Chloride 103, Carbon Dioxide 24, Anion Gap 16.4 H, BUN 18, Creatinine 1.00, Estimated Creat Clear 79, Estimated GFR 74, Est GFR ( Amer) 89, Glucose 210 H, Calcium 8.9, Magnesium 1.2 L, Total Bilirubin 1.4 H, AST 74 H, ALT 47, Alkaline Phosphatase 179 H, Troponin I < 0.01, Total Protein 8.1, Albumin 4.2, Globulin 3.9 H, Albumin/Globulin Ratio 1.1, Lipase 34724 H, HIV Ag/Ab Combo Qual Negative 06/15/25 05:11: VBG pH 7.30 L, VBG pCO2 48.3, VBG pO2 39.6, VBG HCO3 23.2, VBG Total CO2 24.7, VBG O2 Saturation 69.3, VBG Base Excess -3.2 L, VBG Lactic Acid 4.4 H I & O for Last 24 hours: Intake & Output 06/12/25 06/13/25 06/14/25 06/15/25 23:59 23:59 23:59 23:59 Weight 81.647 kg Constitutional Constitutional: no acute distress and cooperative *Routine HEENT Exam Head: Present normocephalic Eye: Present EOMI ENT: Present mucous membranes dry *Routine Neck Exam Neck: Present supple; Absent JVD *Routine Respiratory Exam Respiratory: Present CTA bilaterally, able to speak in complete sentences and symmetric chest movement; Absent wheezes or crackles *Routine Cardiovascular Exam Cardiovascular: Present RRR; Absent murmur *Routine Abdominal Exam Abdominal: Present normoactive bowel sounds and firm; Absent tenderness or distended *Routine Rectal Exam Rectal:: deferred *Routine Genitalia Exam Genitalia:: deferred *Routine Extremities Exam Extremities: Present full ROM; Absent edema *Routine Neurological Exam Neurological: Present alert and oriented X3 Assessment and Plan *Assessment and plan (1) Acute pancreatitis: Status: Acute Category: Medical Code(s): K85.90 - Acute pancreatitis without necrosis or infection, unspecified (2) Elevated lipase: Status: Acute Category: Medical Code(s): R74.8 - Abnormal levels of other serum enzymes (3) Cholecystitis: Status: Acute Category: Medical Code(s): K81.9 - Cholecystitis, unspecified (4) E coli enteritis: Status: Acute Category: Medical Code(s): A04.4 - Other intestinal Escherichia coli infections (5) IDDM (insulin dependent diabetes mellitus): Status: Acute Category: Medical Code(s): E11.9 - Type 2 diabetes mellitus without complications; Z79.4 - senior living (current) use of insulin (6) Hypertension: Status: Acute Qualifiers: Hypertension type: primary hypertension Qualified Code(s): I10 - Essential (primary) hypertension Category: Medical Code(s): I10 - Essential (primary) hypertension (7) Hyperlipidemia: Status: Acute Qualifiers: Hyperlipidemia type: mixed hyperlipidemia Qualified Code(s): E78.2 - Mixed hyperlipidemia Category: Medical Code(s): E78.5 - Hyperlipidemia, unspecified (8) Back pain with radiculopathy: Status: Acute Category: Medical Code(s): M54.10 - Radiculopathy, site unspecified (9) COPD (chronic obstructive pulmonary disease): Status: Acute Category: Medical Code(s): J44.9 - Chronic obstructive pulmonary disease, unspecified Plan Mr. Eaton is a 69-year-old male who presented to the emergency department today after multiple episodes of diarrhea, nausea, vomiting, and abdominal pain. He has a primary medical history of COPD, insulin-dependent diabetes, coronary artery disease, hypertension, chronic pain. He states that he has been having the symptoms for approximately 2 days but worse throughout the night last night. He denies fever, chills, urinary symptoms, chest pain, shortness of breath. Workup in the emergency department revealed a significantly elevated lipase of 40,000. Mild leukocytosis of 12.2, hypomagnesemia of 1.2, lactic 4.4. LFTs very slightly elevated, AST 74. Patient did have diarrhea panel which showed positive for Enteroaggregative E. Coli. In addition his right upper quadrant ultrasound showed distended gallbladder with gallstones and gallbladder wall thickening. Dr. Leach consulted myself for admission of this patient for further workup and gastroenterology consult. I agreed to accept the patient, plan of care as follows: #Acute pancreatitis #Elevated lipase #Cholecystitis #E. coli enteritis ? Patient's lipase found to be close to 40,000. Patient complains of abdominal cramping/pain, diarrhea. He does state that he has also had nausea and vomiting. Currently stable, GI consulted for further recommendations. ERCP not indicated patient's diet advanced to clears, if tolerated will advance to diabetic diet. ? Patient's stool positive for EAEC. Patient receiving IV hydration LR 125 mL/H. Zofran and Phenergan ordered as needed for nausea and vomiting. Will start azithromycin 500 mg daily x 5 days. ? Williams 10/325 mg every 4 hours as needed for moderate pain, morphine 2 mg every 2 hours as needed for severe pain. Tylenol 650 mg every 4 hours as needed and Toradol 15 mg every 6 hours as needed ordered as well for mild to moderate pain. Continue monitoring for toxicity. ?Patient right upper quadrant ultrasound shows gallbladder wall thickening and gallstones. Patient abdomen is not tender to palpation. #Diabetes mellitus, insulin-dependent ? ACHS fingersticks, sliding scale insulin. Continue insulin glargine at half dose, 60 units subcu daily. #Hypertension: Continue lisinopril 5 mg daily, furosemide 40 mg daily, and metoprolol 25 mg twice daily. #Hyperlipidemia: Continue atorvastatin 20 mg at bedtime. #Diabetic neuropathy: Continue gabapentin 800 mg 4 times daily for pain #COPD: DuoNebs every 6 hours as needed. Full code Clears, advance as tolerated GI consult VTE?SCDs Ambulate as tolerated
--- NOTE | 2025-06-15 08:32 | HMH.PHAINT1 ---
Pharmacy Intervention Comments: MEDICATION RECONCILIATION COMPLETED ON PATIENT USING EXTERNAL FILL HISTORY FROM PHARMACY AND LIST FROM PCP OFFICE. -MARCELO CHING, RAVEND
--- NOTE | 2025-06-15 08:33 | PC.NURSE ---
[facility] PANEL CRITICAL FOR EAEC, DR. ALDANA NOTIFIED. PT NAME AND R/V NO NEW ORDERS
--- NOTE | 2025-06-15 08:39 | PC.NURSE ---
Report called to SANDY Rosado at this time.
[2025-06-15] MEDS: LACTATED RINGERS 1000ML 1,000 ML 125 ML IV ×2 (09:12→20:28)
[2025-06-15] MEDS: KETOROLAC 30MG/ML VIAL 15 MG IV (09:13)
[2025-06-15 09:33] LABS: Reflex Lactic Add Lactic Reflex
[2025-06-15 11:03] LABS: Lactic Acid Follow Up (RFLX 1) 1.8 mmol/L (0.7-2.1)
[2025-06-15 11:26] LABS: Troponin I < 0.01 ng/ml (0.00-0.034)
[2025-06-15 11:31] LABS: POC Glucose,Bedside 209 (70-110)
[2025-06-15] MEDS: HYDROCODONE 10MG/APAP 325MG TAB 1 TAB PO ×3 (13:08→20:32)
[2025-06-15] MEDS: GABAPENTIN 800MG TABLET 800 MG PO ×3 (13:08→20:27)
[2025-06-15] MEDS: NYSTATIN CREAM 30GM/TUBE TP ×3 (13:09→20:30)
--- NOTE | 2025-06-15 16:04 | EXP.GE.CONS ---
History of Present Illness *Admission Date: 06/15/25 *History of present illness: Mr. Eaton is a 69-year-old gentleman who presented to the ED today with the onset of abdominal pain and swelling with bloating 2 days ago. On admit, his pain was 10 out of 10. He did have associated nausea and vomiting. He also had some diarrhea. He does have a history of insulin-dependent diabetes and CASHD. The patient's labs on admission did show some leukocytosis with white blood cell count 12.2. His lipase was markedly elevated at 40,867. His liver chemistries were only mildly elevated with normal ALT 47, AST 74 and total bilirubin was mildly elevated at 1.4. His alkaline phosphatase was 179. He did have a stool panel that tested positive for enteroaggregative E. coli. His initial CT a/CAT scan of the abdomen and pelvis shows some liquid stool in the ascending colon and cholelithiasis. The gallbladder and biliary system showed cholelithiasis without pericholecystic fluid. The pancreas was unremarkable. His subsequent ultrasound showed a distended gallbladder with gallstones and gallbladder wall thickening. The CBD size was normal at 4 mm. The liver was fatty with slightly nodular contour. The patient is doing better today and was sleeping when I came in. He looks very comfortable. He was made n.p.o. for the possibility of ERCP. [facility] Disclaimer: The information contained in this section may have been updated after the patient was seen, as this information can be updated by other users. Medical History (Updated 06/15/25 @ 16:11 by Randolph Curtis II, MD) Hyperlipidemia Hypertension IDDM (insulin dependent diabetes mellitus) Nasal drainage Erectile dysfunction Pre-ulcerative calluses Arthritis Sinusitis Splenomegaly Sepsis Colitis Left shoulder pain Edema Abnormal electrocardiogram [ECG] [EKG] Sinus mucosal thickening Diastasis recti Sunburn Deviated nasal septum Chronic sinusitis Incurvated nail COPD (chronic obstructive pulmonary disease) Shoulder pain, bilateral TMJ arthralgia Cervical paraspinous muscle spasm Pharyngitis Acute bronchitis Otitis externa Cerumen impaction Acute sinusitis Diabetic foot Callus of foot Muscle strain Rib pain on right side Bruising Pain of right upper arm Pain in right shoulder Neck Pain Callus Psoriasis History of diabetes mellitus, type II History of hyperlipidemia History of hypertension Cellulitis of left foot Carpal tunnel syndrome of right wrist Cellulitis VRE (vancomycin resistant enterococcus) culture positive Gas gangrene of foot Foot abscess, right Severe sepsis with acute organ dysfunction Cellulitis of right foot Diabetic ulcer of left foot Diabetic foot Type 2 diabetes mellitus with diabetic polyneuropathy, with long-term current use of insulin Amputation of toe of left foot Other acute osteomyelitis, right ankle and foot Diabetic ulcer of toe of right foot associated with type 2 diabetes mellitus, limited to breakdown of skin Diabetes mellitus Foot osteomyelitis, right Diabetic infection of right foot Diabetic ulcer of right foot Encounter for wound care Onychomycosis Nail dystrophy Overweight (BMI 25.0-29.9) Left foot pain Hammertoes of both feet Diabetes mellitus with diabetic neuropathy, with long-term current use of insulin Amputation of one or more toes Equinus contracture of left ankle Gangrene of toe of left foot Diabetic foot infection Cellulitis and abscess of foot Infected surgical wound Dyspnea CAD, multiple vessel Non-STEMI (non-ST elevated myocardial infarction) Surgical History History of nasal septoplasty Status post nasal septoplasty History of amputation of toe History of amputation of toe Hx of cataract surgery Status post foot surgery History of amputation of right great toe S/P CABG x 6 Family History Mother Heart attack Social History (Updated 06/15/25 @ 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) Smoking Status: Former smoker tobacco type: cigarettes packs per day: 3 pack-years: 75 years smoked: 25 smoking status stop date: 11/02/2001 how long ago did patient quit smokin second hand exposure: Yes alcohol intake: former substance use type: denies use current occupational status: disabled Travel in the last 8 weeks?: None household members: none housing: apartment caffeine: Yes Have you lived/traveled outside [place] in past 30 days?: No Contact w/someone who lives/traveled outside [place] past 30 days?: No Exposure to someone with infectious disease in past 14 days?: No Do you have a fever (greater than 100.4 F or 38 C)?: No Have you tested positive for COVID-19?: No Exposed to someone with COVID-19 in past 14 days?: No Do you have a sore throat?: No Do you have a cough?: No Do you have any weakness?: No Are you experiencing any nausea/vomitting?: No Do you have any diarrhea?: Yes Are you experiencing any unusual bleeding?: No Do you have any muscle aches/pain?: No Do you have any abdominal pain?: Yes Are you experiencing loss of taste or smell?: No Meds Home Medications and Allergies Home Medications ?Medication ?Instructions ?Recorded ?Confirmed ?Type lancets 28 gauge (FreeStyle #100 ea 04/01/22 06/06/25 History Lancets) gabapentin 800 mg tablet 800 mg PO QID Pain 07/02/23 06/15/25 History blood sugar diagnostic (OneTouch #100 ea 11/18/23 06/06/25 Rx Ultra Test strips) blood-glucose meter (OneTouch #1 ea 11/18/23 06/06/25 Rx Ultra2 Meter) lancets 30 gauge (OneTouch #100 ea 11/18/23 06/06/25 Rx UltraSoft 2 Lancet) pen needle, diabetic 31 gauge x #50 ea 06/29/24 06/06/25 Rx 3/16 (Easy Comfort Pen [place]) blood sugar diagnostic (True #100 ea 07/01/24 06/06/25 Rx Metrix Glucose Test Strip) blood-glucose meter (True Metrix #1 ea 07/01/24 06/06/25 Rx Air Glucose Meter) lancets 33 gauge (TRUEplus Lancets) #100 ea 07/01/24 06/06/25 Rx hydrocodone 10 mg-acetaminophen 1 tab PO QID 12/28/24 06/15/25 History 325 mg tablet albuterol sulfate 90 mcg/actuation 2 inh inhalation Q6HP PRN 03/28/25 06/15/25 Rx aerosol inhaler shortness of breath or wheezing #6.7 grams levocetirizine 5 mg tablet 5 mg PO DAILY 90 days #90 tabs 06/12/25 06/15/25 Rx potassium chloride 20 mEq 20 meq PO DAILY 90 days #90 tabs 06/12/25 06/15/25 Rx tablet,extended release atorvastatin 20 mg tablet 20 mg PO HS 06/15/25 06/15/25 History furosemide 40 mg tablet 40 mg PO DAILY 06/15/25 06/15/25 History insulin glargine U-300 conc 300 130 unit SQ DAILY 06/15/25 06/15/25 History unit/mL (3 mL) subcutaneous pen (Toujeo Max U-300 SoloStar) ipratropium 0.5 mg-albuterol 3 mg 3 ml inhalation BID 06/15/25 06/15/25 History (2.5 mg base)/3 mL nebulization soln lisinopril 5 mg tablet 5 mg PO DAILY 06/15/25 06/15/25 History metoprolol tartrate 25 mg tablet 25 mg PO BID 06/15/25 06/15/25 History omeprazole 20 mg capsule,delayed 20 mg PO BID 06/15/25 06/15/25 History release New Prescriptions to Start Prescriptions: Allergies Allergy/AdvReac Type Severity Reaction Status Date / Time No Known Allergies Allergy Verified 06/06/25 08:36 Exam (Inpt) Vital signs and Labs for Last 24 Hours: Temp Pulse Resp BP Pulse Ox O2 Del Method 97.9 F 80 17 119/58 L 95 Room Air 06/15/25 11:25 06/15/25 12:00 06/15/25 11:25 06/15/25 11:25 06/15/25 11:25 06/15/25 15:05 Laboratory Results - last 24 hr 06/15/25 05:07: WBC 12.2 H, RBC 4.67, Hgb 13.2 L, Hct 40.8 L, MCV 87.4, MCH 28.3, MCHC 32.4, RDW 15.1, Plt Count 163, MPV 11.5 H, Neut % (Auto) 72.4, Lymph % (Auto) 17.5, Schuyler % (Auto) 6.8, Eos % (Auto) 2.3, Baso % (Auto) 0.3, Neut # (Auto) 8.9 H, Lymph # (Auto) 2.1, [place]yler # (Auto) 0.8, Eos # (Auto) 0.3, Baso # (Auto) 0.0, Sodium 139, Potassium 4.4, Chloride 103, Carbon Dioxide 24, Anion Gap 16.4 H, BUN 18, Creatinine 1.00, Estimated Creat Clear 79, Estimated GFR 74, Est GFR ( Amer) 89, Glucose 210 H, Calcium 8.9, Magnesium 1.2 L, Total Bilirubin 1.4 H, AST 74 H, ALT 47, Alkaline Phosphatase 179 H, Troponin I < 0.01, Total Protein 8.1, Albumin 4.2, Globulin 3.9 H, Albumin/Globulin Ratio 1.1, Lipase 46901 H, HIV Ag/Ab Combo Qual Negative 06/15/25 05:11: VBG pH 7.30 L, VBG pCO2 48.3, VBG pO2 39.6, VBG HCO3 23.2, VBG Total CO2 24.7, VBG O2 Saturation 69.3, VBG Base Excess -3.2 L, VBG Lactic Acid 4.4 H 06/15/25 05:25: Stl C. cayetanensis PCR Not detected, Stool Rotavirus (PCR) Not detected, Stl Adenov F 40/41 PCR Not detected, Stool Astrovirus (PCR) Not detected, Stool Campylobacter PCR Not detected, Stl C.difficile Tox PCR Not detected, Stool Cryptosporidium PCR Not detected, Stl E.coli Shiga Tox PCR Not detected, Stool E coli O157 PCR Not detected, Stl Enterotoxigenic E PCR Not detected, Stool EPEC (PCR) Not detected, Stool EAEC (PCR) Detected A, Stl E. histolytica PCR Not detected, Stool Giardia Lamblia PCR Not detected, Stool Salmonella PCR Not detected, Stool Sapovirus (PCR) Not detected, Stl P. shigelloides PCR Not detected, Stl Shigella/EIEC PCR Not detected, St Y.enterocolitica PCR Not detected, Stool Vibrio (PCR) Not detected, Stl Vibrio cholerae PCR Not detected, Stl Norovirus GI/GII PCR Not detected 06/15/25 10:40: Lactate 1.8, Troponin I < 0.01 06/15/25 11:21: POC Glucose 209 H I & O for Labs for Last 24 Hours: Intake & Output 06/12/25 06/13/25 06/14/25 06/15/25 23:59 23:59 23:59 23:59 Output Total 200 / 200 Balance -200 / -200 Weight 178 lb 2 oz Comments:: Normoactive bowel sounds, soft, moderate gaseous distention, some tenderness with deep palpation but no rebound or guarding, no masses Results Labs 06/15/25 05:07 06/15/25 05:07 Labs: Laboratory Results - last 24 hr 06/15/25 05:07: WBC 12.2 H, RBC 4.67, Hgb 13.2 L, Hct 40.8 L, MCV 87.4, MCH 28.3, MCHC 32.4, RDW 15.1, Plt Count 163, MPV 11.5 H, Neut % (Auto) 72.4, Lymph % (Auto) 17.5, Schuyler % (Auto) 6.8, Eos % (Auto) 2.3, Baso % (Auto) 0.3, Neut # (Auto) 8.9 H, Lymph # (Auto) 2.1, Schuyler # (Auto) 0.8, Eos # (Auto) 0.3, Baso # (Auto) 0.0, Sodium 139, Potassium 4.4, Chloride 103, Carbon Dioxide 24, Anion Gap 16.4 H, BUN 18, Creatinine 1.00, Estimated Creat Clear 79, Estimated GFR 74, Est GFR ( Amer) 89, Glucose 210 H, Calcium 8.9, Magnesium 1.2 L, Total Bilirubin 1.4 H, AST 74 H, ALT 47, Alkaline Phosphatase 179 H, Troponin I < 0.01, Total Protein 8.1, Albumin 4.2, Globulin 3.9 H, Albumin/Globulin Ratio 1.1, Lipase 47328 H, HIV Ag/Ab Combo Qual Negative 06/15/25 05:11: VBG pH 7.30 L, VBG pCO2 48.3, VBG pO2 39.6, VBG HCO3 23.2, VBG Total CO2 24.7, VBG O2 Saturation 69.3, VBG Base Excess -3.2 L, VBG Lactic Acid 4.4 H 06/15/25 05:25: Stl C. cayetanensis PCR Not detected, Stool Rotavirus (PCR) Not detected, Stl Adenov F 40/41 PCR Not detected, Stool Astrovirus (PCR) Not detected, Stool Campylobacter PCR Not detected, Stl C.difficile Tox PCR Not detected, Stool Cryptosporidium PCR Not detected, Stl E.coli Shiga Tox PCR Not detected, Stool E coli O157 PCR Not detected, Stl Enterotoxigenic E PCR Not detected, Stool EPEC (PCR) Not detected, Stool EAEC (PCR) Detected A, Stl E. histolytica PCR Not detected, Stool Giardia Lamblia PCR Not detected, Stool Salmonella PCR Not detected, Stool Sapovirus (PCR) Not detected, Stl P. shigelloides PCR Not detected, Stl Shigella/EIEC PCR Not detected, St Y.enterocolitica PCR Not detected, Stool Vibrio (PCR) Not detected, Stl Vibrio cholerae PCR Not detected, Stl Norovirus GI/GII PCR Not detected 06/15/25 10:40: Lactate 1.8, Troponin I < 0.01 06/15/25 11:21: POC Glucose 209 H Assessment and Plan *Assessment and plan (1) Gallstone pancreatitis: Status: Acute Category: Medical Code(s): K85.10 - Biliary acute pancreatitis without necrosis or infection (2) Cholecystitis: Status: Acute Category: Medical Code(s): K81.9 - Cholecystitis, unspecified (3) Abdominal pain: Status: Acute Category: Medical Code(s): R10.9 - Unspecified abdominal pain (4) Nausea vomiting and diarrhea: Status: Acute Category: Medical Code(s): R11.2 - Nausea with vomiting, unspecified; R19.7 - Diarrhea, unspecified (5) E coli enteritis: Status: Acute Category: Medical Code(s): A04.4 - Other intestinal Escherichia coli infections Plan 1. Gallstone pancreatitis. The level of lipase is not part of the [place] criteria or [place] 2 criteria and does not predict severity of pancreatitis. BUN and creatinine are not elevated in patients albumin is normal. The patient's CAT scan after review shows only interstitial pancreatitis. The patient is clinically improved today. The patient's bilirubin is minimally elevated and the ultrasound showed normal 4 mm CBD. ERCP is not indicated and would consider ERCP urgent/rapid in very few settings. In persons with gallstone pancreatitis, literature supports early ERCP in persons with cholangitis and biliary obstruction with jaundice. Studies have shown that performing urgent ERCP early in patients without cholangitis does not provide a significant benefit for reducing the severity of pancreatitis and studies have found that ERCP can lead to additional adverse events including worsening of the pancreatitis. That being said, if there was a gallstone present on CAT scan or ultrasound or evidence of bile duct dilation, I would certainly recommend MRCP early and ERCP if stone is present. For now, the patient has mild pancreatitis and is improving. I would begin clear liquids and advance his diet. He will need laparoscopic cholecystectomy as an outpatient after pancreatitis resolves. 2. Enteroaggregative of E. coli enteritis. This can produce acute watery diarrhea. The setting where you do not want to use antibiotics is Shiga toxin producing E. coli because of the association with hemolytic uremic syndrome. With EAEC, there are some studies that have shown resolution of diarrhea faster with antibiotic therapy with a quinolone. I would consider treatment with Cipro or azithromycin.
[2025-06-15 16:46] LABS: POC Glucose,Bedside 233 (70-110)
[2025-06-15] MEDS: humaLOG 100 UNITS/ML 10ML VIAL (SSI) SUBCUT ×2 (16:47→20:28)
[2025-06-15] MEDS: AZITHROMYCIN 500 MG in 0.9 % SODIUM CHLORIDE 250 ML 250 MG IV (18:02)
--- NOTE | 2025-06-15 18:05 | PC.NURSE ---
Patient able to tolerate clear liquid and diabetic diet. Pain controlled with po pain medication. VS stable, bowel sounds active
[2025-06-15 19:59] LABS: POC Glucose,Bedside 273 (70-110)
[2025-06-15] MEDS: ATORVASTATIN 20MG TABLET 20 MG PO (20:28)
[2025-06-15] MEDS: PANTOPRAZOLE 40MG TABLET 40 MG PO (20:28)
[2025-06-15] MEDS: METOPROLOL TARTRATE 25MG TABLET 25 MG PO (20:28)
[2025-06-16] VITALS: BP 107/55; PULSE 60; PULSE 66; RESP 20; TEMP 36.4; O2SAT 90
--- NOTE | 2025-06-16 02:50 | PC.NURSE ---
Pt AOx4. Receiving fluids per provider order. Denies pain and states that it is being controlled with his scheduled medications. Currently up to chair and asleep. Respirations even and unlabored. Bed low, locked, and call light is in reach.
[2025-06-16 04:00] VITALS: BP 132/66; PULSE 70; PULSE 74; RESP 16; TEMP 36.4; O2SAT 93; BMI 26.1
[2025-06-16] MEDS: LACTATED RINGERS 1000ML 1,000 ML 125 ML IV (04:55)
[2025-06-16 05:05] LABS: POC Glucose,Bedside 138 (70-110)
[2025-06-16 06:21] LABS: Hematocrit 32.8 % (42.0-52.0); Hemoglobin 10.5 g/dL (14.1-18.0); Immature Granulocytes % 0.4 %; Mean Corpuscular HGB Conc 32.0 g/dL (31.8-35.4); Mean Corpuscular Hemoglobin 28.1 pg (27.0-31.2); Mean Corpuscular Volume 87.7 fl (80-94); Nucleated Red Blood Cells % 0 %; Platelet Count 81 K/mm3 (142-424); Red Blood Count 3.74 M/mm3 (4.60-6.20); Red Cell Distribution Width-SD 48.8 fL; White Blood Count 5.3 K/mm3 (4.8-10.8)
[2025-06-16 06:26] LABS: Albumin Level 3.4 g/dl (3.5-5.0); Chloride 104 mmol/L (98-107); Potassium 4.7 mmoL/L (3.5-5.1); Sodium 135 mmol/L (136-145)
[2025-06-16 06:28] LABS: Alanine Aminotransferase 37 U/L (12-78); Aspartate Amino Transferase 56 U/L (17-59); Blood Urea Nitrogen 22 mg/dl (9-20); Creatinine Clearance Estimated 78 mL/min (50-200); Creatinine,Serum 0.90 mg/dl (0.66-1.25); Estimated Glomerular Filt Rate 83 ml/min (>60); GFR (African American) 101 ML/MIN (>60)
[2025-06-16 06:29] LABS: Albumin/Globulin Ratio 1.0 (1.1-1.8); Alkaline Phosphatase 151 U/L (38-126); Anion Gap 7.7 mEq/L (5-15); Bilirubin,Total 1.3 mg/dl (0.2-1.3); Calcium 8.1 mg/dl (8.4-10.2); Carbon Dioxide 28 mmol/L (22.0-30.0); Globulin 3.3 g/dL (1.3-3.2); Glucose 146 mg/dl (74-100); INR 1.12 (0.9-1.1); Magnesium 1.9 mg/dl (1.6-2.3); Phosphorous 3.5 mg/dl (2.5-4.5); Prothrombin Time 12.3 seconds (10.1-12.5); Total Protein,Serum 6.7 g/dl (6.3-8.2)
[2025-06-16 07:21] LABS: Lipase 1010 U/L (23-300)
[2025-06-16 08:00] VITALS: BP 119/61; PULSE 76; RESP 18; TEMP 36.4; O2SAT 93
--- NOTE | 2025-06-16 08:12 | P.DS_ITS ---
<Statement entered by Regino Alfaro MD - 06/20/25 11:44> Personally evaluated patient and agree with the plan of care as outlined by the [facility]IGATOR. General Admission date:: 06/15/25 Discharge date: 06/16/25 HPI HPI HPI: Mr. Eaton is a 69-year-old male who presented to the emergency department today after multiple episodes of diarrhea, nausea, vomiting, and abdominal pain. He has a primary medical history of COPD, insulin-dependent diabetes, coronary artery disease, hypertension, chronic pain. He states that he has been having the symptoms for approximately 2 days but worse throughout the night last night. He denies fever, chills, urinary symptoms, chest pain, shortness of breath. Workup in the emergency department revealed a significantly elevated lipase of almost 40,000. Mild leukocytosis of 12.2, hypomagnesemia of 1.2, lactic 4.4. LFTs very slightly elevated, AST 74. Patient did have diarrhea panel which showed positive for Enteroaggregative E. Coli. In addition his right upper quadrant ultrasound showed distended gallbladder with gallstones and gallbladder wall thickening. Patient was admitted to hospital medicine for further workup and gastroenterology consult. Hospital Course Hospital Course Hospital Course: Mr. Eaton is a 69-year-old male who presented to the emergency department after multiple episodes of diarrhea, nausea, vomiting, and abdominal pain. He has a primary medical history of COPD, insulin-dependent diabetes, coronary artery disease, hypertension, chronic pain. He states that he has been having the symptoms for approximately 2 days but worse throughout the night last night. He denies fever, chills, urinary symptoms, chest pain, shortness of breath. Workup in the emergency department revealed a significantly elevated lipase of 40,000. Mild leukocytosis of 12.2, hypomagnesemia of 1.2, lactic 4.4. LFTs very slightly elevated, AST 74. Patient did have diarrhea panel which showed positive for Enteroaggregative E. Coli. In addition his right upper quadrant ultrasound showed distended gallbladder with gallstones and gallbladder wall thickening. Dr. Leach consulted myself for admission of this patient for further workup and gastroenterology consult. I agreed to accept the patient, plan of care as follows: #Acute pancreatitis #Elevated lipase #Cholecystitis #E. coli enteritis ? On admissions patient's lipase 40,000, repeat this morning 1010. Patient denies abdominal pain, nausea, vomiting, diarrhea. Tolerating p.o. diet without issue. ? GI consulted yesterday, recommends follow-up with outpatient surgery for cholecystectomy. Also recommended course of azithromycin for EAEC. Will di kiprge with 5 days of azithromycin total. ? Patient's stool positive for EAEC. ? Patient has not complained of increased pain. Patient takes chronic pain medication should continue at discharge. ? Patient right upper quadrant ultrasound shows gallbladder wall thickening and gallstones. Patient abdomen is not tender to palpation. Patient will follow-up with outpatient surgery for possible cholecystectomy at discharge. #Diabetes mellitus, insulin-dependent ? A1c 7.5%. Continue diabetic regimen at discharge. #Hypertension: Continue lisinopril 5 mg daily, furosemide 40 mg daily, and metoprolol 25 mg twice daily. #Hyperlipidemia: Continue atorvastatin 20 mg at bedtime. #Diabetic neuropathy: Continue gabapentin 800 mg 4 times daily for pain. #COPD: Continue albuterol inhaler as needed shortness of breath/wheezing. Total time spent on discharge 32 minutes in counseling, documentation, chart review, and direct care with patient. Exam Data for Last 24 hours Vital signs and Labs for Last 24 Hours: Temp Pulse Resp BP Pulse Ox O2 Del Method 97.6 F 74 16 132/66 93 L Room Air 06/16/25 04:00 06/16/25 04:00 06/16/25 04:00 06/16/25 04:00 06/16/25 04:00 06/16/25 06:31 Laboratory Results - last 24 hr 06/15/25 05:25: Stl C. cayetanensis PCR Not detected, Stool Rotavirus (PCR) Not detected, Stl Adenov F 40/41 PCR Not detected, Stool Astrovirus (PCR) Not detected, Stool Campylobacter PCR Not detected, Stl C.difficile Tox PCR Not detected, Stool Cryptosporidium PCR Not detected, Stl E.coli Shiga Tox PCR Not detected, Stool E coli O157 PCR Not detected, Stl Enterotoxigenic E PCR Not detected, Stool EPEC (PCR) Not detected, Stool EAEC (PCR) Detected A, Stl E. histolytica PCR Not detected, Stool Giardia Lamblia PCR Not detected, Stool Salmonella PCR Not detected, Stool Sapovirus (PCR) Not detected, Stl P. shigelloides PCR Not detected, Stl Shigella/EIEC PCR Not detected, St Y.enterocolitica PCR Not detected, Stool Vibrio (PCR) Not detected, Stl Vibrio cholerae PCR Not detected, Stl Norovirus GI/GII PCR Not detected 06/15/25 10:40: Lactate 1.8, Troponin I < 0.01 06/15/25 11:21: POC Glucose 209 H 06/15/25 16:18: POC Glucose 233 H 06/15/25 19:52: POC Glucose 273 H 06/16/25 04:57: POC Glucose 138 H 06/16/25 05:49: WBC 5.3 D, RBC 3.74 L, Hgb 10.5 L, Hct 32.8 L, MCV 87.7, MCH 28.1, MCHC 32.0, RDW 15.2, Plt Count 81 L D, MPV 11.5 H, Neut % (Auto) 73.2, Lymph % (Auto) 15.1, Winston % (Auto) 8.1, Eos % (Auto) 3.0, Baso % (Auto) 0.2, Neut # (Auto) 3.9, Lymph # (Auto) 0.8, Winston # (Auto) 0.4, Eos # (Auto) 0.2, Baso # (Auto) 0.0, PT 12.3, INR 1.12 H, Sodium 135 L, Potassium 4.7, Chloride 104, Carbon Dioxide 28, Anion Gap 7.7, BUN 22 H, Creatinine 0.90, Estimated Creat Clear 78, Estimated GFR 83, Est GFR ( Amer) 101, Glucose 146 H, Calcium 8.1 L, Phosphorus 3.5, Magnesium 1.9 D, Total Bilirubin 1.3, AST 56, ALT 37, Alkaline Phosphatase 151 H, Total Protein 6.7, Albumin 3.4 L D, Globulin 3.3 H, Albumin/Globulin Ratio 1.0 L, Lipase 1010 H I & O for Last 24 hours: Intake & Output 06/13/25 06/14/25 06/15/25 06/16/25 23:59 23:59 23:59 23:59 Intake Total 720 / 720 1140 / 1140 Output Total 350 / 350 0 / 0 Balance 370 / 370 1140 / 1140 Weight 80.796 kg 79.923 kg Constitutional Constitutional: no acute distress and cooperative *Routine HEENT Exam Head: Present normocephalic Eye: Present EOMI ENT: Present mucous membranes moist *Routine Neck Exam Neck: Present supple and full ROM; Absent JVD *Routine Respiratory Exam Respiratory: Present CTA bilaterally, able to speak in complete sentences and symmetric chest movement; Absent crackles *Routine Cardiovascular Exam Cardiovascular: Present RRR; Absent murmur *Routine Abdominal Exam Abdominal: Present soft, normoactive bowel sounds and hernia; Absent tenderness or distended *Routine Extremities Exam Extremities: Present full ROM; Absent edema *Routine Skin Exam Skin: Present intact and dry; Absent rash *Routine Neurological Exam Neurological: Present alert, oriented X3 and normal speech Results Data Completed and Pending Labs on day of discharge: Labs from last 24 hours 06/16/25 06/16/25 06/15/25 05:49 04:57 19:52 WBC 5.3 D RBC 3.74 L Hgb 10.5 L Hct 32.8 L MCV 87.7 MCH 28.1 MCHC 32.0 RDW 15.2 Plt Count 81 L D MPV 11.5 H Neut % (Auto) 73.2 Lymph % (Auto) 15.1 Winston % (Auto) 8.1 Eos % (Auto) 3.0 Baso % (Auto) 0.2 Neut # (Auto) 3.9 Lymph # (Auto) 0.8 Winston # (Auto) 0.4 Eos # (Auto) 0.2 Baso # (Auto) 0.0 PT 12.3 INR 1.12 H Sodium 135 L Potassium 4.7 Chloride 104 Carbon Dioxide 28 Anion Gap 7.7 BUN 22 H Creatinine 0.90 Estimated Creat Clear 78 Estimated GFR 83 Est GFR ( Amer) 101 Glucose 146 H POC Glucose 138 H 273 H Lactate Calcium 8.1 L Phosphorus 3.5 Magnesium 1.9 D Total Bilirubin 1.3 AST 56 ALT 37 Alkaline Phosphatase 151 H Troponin I Total Protein 6.7 Albumin 3.4 L D Globulin 3.3 H Albumin/Globulin Ratio 1.0 L Lipase 1010 H Stl C. cayetanensis PCR Stool Rotavirus (PCR) Stl Adenov F 40/41 PCR Stool Astrovirus (PCR) Stool Campylobacter PCR Stl C.difficile Tox PCR Stool Cryptosporidium PCR Stl E.coli Shiga Tox PCR Stool E coli O157 PCR Stl Enterotoxigenic E PCR Stool EPEC (PCR) Stool EAEC (PCR) Stl E. histolytica PCR Stool Giardia Lamblia PCR Stool Salmonella PCR Stool Sapovirus (PCR) Stl P. shigelloides PCR Stl Shigella/EIEC PCR St Y.enterocolitica PCR Stool Vibrio (PCR) Stl Vibrio cholerae PCR Stl Norovirus GI/GII PCR 06/15/25 06/15/25 06/15/25 16:18 11:21 10:40 WBC RBC Hgb Hct MCV MCH MCHC RDW Plt Count MPV Neut % (Auto) Lymph % (Auto) Winston % (Auto) Eos % (Auto) Baso % (Auto) Neut # (Auto) Lymph # (Auto) Winston # (Auto) Eos # (Auto) Baso # (Auto) PT INR Sodium Potassium Chloride Carbon Dioxide Anion Gap BUN Creatinine Estimated Creat Clear Estimated GFR Est GFR ( Amer) Glucose POC Glucose 233 H 209 H Lactate 1.8 Calcium Phosphorus Magnesium Total Bilirubin AST ALT Alkaline Phosphatase Troponin I < 0.01 Total Protein Albumin Globulin Albumin/Globulin Ratio Lipase Stl C. cayetanensis PCR Stool Rotavirus (PCR) Stl Adenov F PCR Stool Astrovirus (PCR) Stool Campylobacter PCR Stl C.difficile Tox PCR Stool Cryptosporidium PCR Stl E.coli Shiga Tox PCR Stool E coli O157 PCR Stl Enterotoxigenic E PCR Stool EPEC (PCR) Stool EAEC (PCR) Stl E. histolytica PCR Stool Giardia Lamblia PCR Stool Salmonella PCR Stool Sapovirus (PCR) Stl P. shigelloides PCR Stl Shigella/EIEC PCR St Y.enterocolitica PCR Stool Vibrio (PCR) Stl Vibrio cholerae PCR Stl Norovirus GI/GII PCR 06/15/25 05:25 WBC RBC Hgb Hct MCV MCH MCHC RDW Plt Count MPV Neut % (Auto) Lymph % (Auto) Winston % (Auto) Eos % (Auto) Baso % (Auto) Neut # (Auto) Lymph # (Auto) Winston # (Auto) Eos # (Auto) Baso # (Auto) PT INR Sodium Potassium Chloride Carbon Dioxide Anion Gap BUN Creatinine Estimated Creat Clear Estimated GFR Est GFR ( Amer) Glucose POC Glucose Lactate Calcium Phosphorus Magnesium Total Bilirubin AST ALT Alkaline Phosphatase Troponin I Total Protein Albumin Globulin Albumin/Globulin Ratio Lipase Stl C. cayetanensis PCR Not detected Stool Rotavirus (PCR) Not detected Stl Adenov F 40/41 PCR Not detected Stool Astrovirus (PCR) Not detected Stool Campylobacter PCR Not detected Stl C.difficile Tox PCR Not detected Stool Cryptosporidium PCR Not detected Stl E.coli Shiga Tox PCR Not detected Stool E coli O157 PCR Not detected Stl Enterotoxigenic E PCR Not detected Stool EPEC (PCR) Not detected Stool EAEC (PCR) Detected A Stl E. histolytica PCR Not detected Stool Giardia Lamblia PCR Not detected Stool Salmonella PCR Not detected Stool Sapovirus (PCR) Not detected Stl P. shigelloides PCR Not detected Stl Shigella/EIEC PCR Not detected St Y.enterocolitica PCR Not detected Stool Vibrio (PCR) Not detected Stl Vibrio cholerae PCR Not detected Stl Norovirus GI/GII PCR Not detected DS: Diagnosis Discharge Diagnosis (1) Acute pancreatitis: Status: Acute Code(s): K85.90 - Acute pancreatitis without necrosis or infection, unspecified (2) Elevated lipase: Status: Acute Code(s): R74.8 - Abnormal levels of other serum enzymes (3) Cholecystitis: Status: Acute Code(s): K81.9 - Cholecystitis, unspecified (4) E coli enteritis: Status: Acute Code(s): A04.4 - Other intestinal Escherichia coli infections (5) IDDM (insulin dependent diabetes mellitus): Status: Acute Code(s): E11.9 - Type 2 diabetes mellitus without complications; 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 (6) Hypertension: Status: Acute Code(s): I10 - Essential (primary) hypertension Qualifiers: Hypertension type: primary hypertension Qualified Code(s): I10 - Essential (primary) hypertension (7) Hyperlipidemia: Status: Acute Code(s): E78.5 - Hyperlipidemia, unspecified Qualifiers: Hyperlipidemia type: mixed hyperlipidemia Qualified Code(s): E78.2 - Mixed hyperlipidemia (8) Back pain with radiculopathy: Status: Acute Code(s): M54.10 - Radiculopathy, site unspecified (9) COPD (chronic obstructive pulmonary disease): Status: Acute Code(s): J44.9 - Chronic obstructive pulmonary disease, unspecified Meds Home Medications and Allergies Home Medications ?Medication ?Instructions ?Recorded ?Confirmed ?Type lancets 28 gauge (FreeStyle #100 ea 04/01/22 06/06/25 History Lancets) gabapentin 800 mg tablet 800 mg PO QID Pain 07/02/23 06/15/25 History blood sugar diagnostic (OneTouch #100 ea 11/18/2303/26 Rx Ultra Test strips) blood-glucose meter (OneTouch #1 ea 11/18/23 06/06/25 Rx Ultra2 Meter) lancets 30 gauge (OneTouch #100 ea 11/18/23 06/06/25 R x UltraSoft 2 Lancet) pen needle, diabetic 31 gauge x #50 ea 06/29/24 Rx 3/16 (Easy Comfort Pen [place]) blood sugar diagnostic (True #100 ea 07/01/24 06/06/25 Rx Metrix Glucose Test Strip) blood-glucose meter (True Metrix #1 ea 07/01/24 Rx Air Glucose Meter) lancets 33 gauge (TRUEplus Lancets) #100 ea 07/01/24 0 06/06/25 Rx hydrocodone 10 mg-acetaminophen 1 tab PO QID 12/28/24 06/15/25 History 325 mg tablet albuterol sulfate 90 mcg/actuation 2 inh inhalation Q6 HP PRN 03/28/25 06/15/25 Rx aerosol inhaler shortness of breath or wheez ing #6.7 grams levocetirizine 5 mg tablet 5 mg PO DAILY 90 days #90 t abs 06/12/25 06/15/25 Rx potassium chloride 20 mEq 20 meq PO DAILY 90 days #90 tabs 06/12/25 06/15/25 Rx tablet,extended release atorvastatin 20 mg tablet 20 mg PO HS 06/15/25 5 History furosemide 40 mg tablet 40 mg PO DAILY 06/15/2506/02 History insulin glargine U-300 conc 300 130 unit SQ DAILY 06/0206/15/25 History unit/mL (3 mL) subcutaneous pen (Toujeo Max U-300 SoloStar) ipratropium 0.5 mg-albuterol 3 mg 3 ml inhalation BID 06/15/25 06/15/25 History (2.5 mg base)/3 mL nebulization soln lisinopril 5 mg tablet 5 mg PO DAILY 06/15/2506/15 History metoprolol tartrate 25 mg tablet 25 mg PO BID 06/15/25 06/15/25 History azithromycin 500 mg tablet 500 mg PO DAILY #4 tabs Rx omeprazole 20 mg capsule,delayed 20 mg PO DAILY #30 ca ps 06/16/25 06/15/25 Rx release New Prescriptions to Start Prescriptions: Abby Campoverde Allergies Allergy/AdvReac Type Severity Reaction Status Date / Time No Known Allergies Allergy Verified 06/06/25 08:36 Discharge Plan Disposition Patient Disposition: Home, Self-Care Condition: Fair Discharge Order Discharge Orders: Discharge Order (Routine); Ordered 06/16/25 Ordered By: Abby Estes Follow up Plan Follow up with: Horacio Molina MD [Staff Physician, General Surgery] - 06/22/25 10:15 am Silvio Mccain MD [Primary Care Provider, Internal Medicine] - Enter time for follow up Referral Note: Please call office for follow up appointment Prescriptions/Medication Reconciliation: New azithromycin 500 mg tablet 500 mg PO DAILY Qty: 4 0RF Continued (DME) lancets [FreeStyle Lancets] 28 gauge misc See Rx Instructions .ROUTE .MEDSUPPLY Qty: 100 Rx Instructions: As directed hydrocodone-acetaminophen 10-325 mg tablet 1 tab PO QID (DME) blood-glucose meter [OneTouch Ultra2 Meter] Misc See Rx Instructions .Route Qty: 1 0RF Rx Instructions: As directed (DME) OneTouch Ultra Test Strip See Rx Instructions .Route Qty: 100 2RF Rx Instructions: As directed (DME) lancets [OneTouch UltraSoft 2 Lancet] 30 gauge misc See Rx Instructions .Route Qty: 100 2RF Rx Instructions: As directed (DME) pen needle, diabetic [Easy Comfort Pen [place]] 31 gauge x 3/16 needle See Rx Instructions .ROUTE .MEDSUPPLY Qty: 50 4RF Rx Instructions: As directed (DME) blood-glucose meter [True Metrix Air Glucose Meter] Misc See Rx Instructions .Route Qty: 1 0RF Rx Instructions: As directed (DME) True Metrix Glucose Test Strip Strip See Rx Instructions .Route Qty: 100 3RF Rx Instructions: Test glucose TID (DME) lancets [TRUEplus Lancets] 33 gauge misc See Rx Instructions .Route Qty: 100 3RF Rx Instructions: As directed albuterol sulfate 90 mcg/actuation HFA aerosol inhaler 2 inh inhalation Q6HP PRN (Reason: shortness of breath or wheezing) Qty: 6.7 4RF levocetirizine 5 mg tablet 5 mg PO DAILY 90 Days Qty: 90 0RF potassium chloride 20 mEq tablet extended release 20 meq PO DAILY 90 Days Qty: 90 0RF furosemide 40 mg tablet 40 mg PO DAILY atorvastatin 20 mg tablet 20 mg PO HS ipratropium-albuterol 0.5 mg-3 mg(2.5 mg base)/3 mL solution for nebulization 3 ml inhalation BID lisinopril 5 mg tablet 5 mg PO DAILY metoprolol tartrate 25 mg tablet 25 mg PO BID insulin glargine U-300 conc [Toujeo Max U-300 SoloStar] 300 unit/mL (3 mL) insulin pen 130 unit SQ DAILY gabapentin 800 mg tablet 800 mg PO QID Changed omeprazole 20 mg capsule,delayed release(DR/EC) 20 mg PO DAILY Qty: 30 0RF Problem Reconciliation Problems Reviewed?: Yes Patient Discharge Instructions ACTIVITY: Continue current activity DIET: continue same diet Patient Instructions: DI for Pancreatitis, Stop Light COPD Print Language: [place] Islander Providers Primary Care Provider: Silvio Mccain Admit Provider: Regino Alfaro Attending Provider: Regino Alfaro
[2025-06-16] MEDS: LISINOPRIL 5MG TABLET 5 MG PO (08:40)
[2025-06-16] MEDS: POTASSIUM CHLORIDE 20MEQ TAB 20 MEQ PO (08:40)
[2025-06-16] MEDS: HYDROCODONE 10MG/APAP 325MG TAB 1 TAB PO (08:40)
[2025-06-16] MEDS: METOPROLOL TARTRATE 25MG TABLET 25 MG PO (08:40)
[2025-06-16] MEDS: FUROSEMIDE 40 MG TABLET PO (08:40)
[2025-06-16] MEDS: GABAPENTIN 800MG TABLET 800 MG PO (08:41)
[2025-06-16] MEDS: NYSTATIN CREAM 30GM/TUBE TP (08:42)
[2025-06-16] MEDS: PANTOPRAZOLE 40MG TABLET 40 MG PO (08:42)
[2025-06-16] MEDS: INSULIN GLARGINE 100 UNITS/ML 3ML FLEXPEN 52 UNIT SUBCUT (08:43)
[2025-06-16 09:00] LABS: POC Glucose,Bedside 225 (70-110)
--- NOTE | 2025-06-20 11:21 | SW/DCPLANNER ---
Spoke with patient on the phone. Patient stated that he is doing well. Patient stated that he is aware of his upcoming appointments. Patient stated that he was able to get his new medicine picked up. Patient stated that he has no concerns or questions at this time. Dai Suggs
== END 2025-06-16 12:52 | disposition home or self-care (01) ==
LOC: ER 08:17 → 2ND 08:22
PROVIDERS: Admitting Provider Student in an Organized Health Care Education/Training Program; Emergency Provider Emergency Medicine; PCP Family Medicine; Visit Provider Student in an Organized Health Care Education/Training Program
DX: K85.10 Biliary acute pancreatitis without necrosis or infection (principal); K80.00 Calculus of gallbladder with acute cholecystitis without obstruction; R74.8 Abnormal levels of other serum enzymes; I10 Essential (primary) hypertension; E78.2 Mixed hyperlipidemia; E11.42 Type 2 diabetes mellitus with diabetic polyneuropathy; M54.10 Radiculopathy, site unspecified; J44.9 Chronic obstructive pulmonary disease, unspecified; K44.9 Diaphragmatic hernia without obstruction or gangrene; G89.29 Other chronic pain; I25.2 Old myocardial infarction; K76.0 Fatty (change of) liver, not elsewhere classified; A04.4 Other intestinal Escherichia coli infections; I25.10 Atherosclerotic heart disease of native coronary artery without angina pectoris; Z87.891 Personal history of nicotine dependence; Z89.432 Acquired absence of left foot; Z89.411 Acquired absence of right great toe; Z95.1 Presence of aortocoronary bypass graft; Z89.422 Acquired absence of other left toe(s); Z79.4 Long term (current) use of insulin; Z79.899 Other long term (current) drug therapy; Z79.891 Long term (current) use of opiate analgesic; E83.42 Hypomagnesemia; D72.829 Elevated white blood cell count, unspecified
CPT/HCPCS: 36415; 71275; 74174; 76705; 80053; 82803; 82962; 83605; 83690; 83735; 84100; 84484; 85025; 85610; 87389; 87507; 93005; 96361; 96365; 96375; 96376; 99291; G0378; J0456; J1885; J2270; J2405; J3475; J7050; J7120; Q9967

== ENCOUNTER 2025-06-26 08:25 | Outpatient (CLI) | payer MEDICARE, SELFPAY ==
--- OUTSIDE RECORDS SUMMARY | 2025-06-26 08:30 | XMS_ITS | Referral Summary ---
Author Organization [employer] ([place], [place], [place], [place]) Address [address] [place] [address] Care Team Providers Care Pot Fluxer Name Role Phone Silvio Mccain MD Primary Care Provider [phone] Silvio Mccain MD Unavailable Social History Tobacco Use Types Packs/Day Years Used Date Smoking Tobacco: Never Assessed Sex and Gender Information Value Date Recorded Sex Assigned at Not on file Legal Sex Male 6:14 PM CDT Gender Identity Not on file Sexual Orientation Not on file Plan of Treatment Not on file Insurance BLUE CROSS/BLUE SHIELD [facility] Care Teams Pot Fluxer Relationship Specialty Start Date End Date Silvio Mccain MD [address] [place] [address] PCP - General Family Medicine 12/30/22 Silvio Mccain MD [address] [place] [id number] Referring Physician Family Medicine 12/30/22
--- OUTSIDE RECORDS SUMMARY | 2025-06-26 08:30 | XMS_ITS | Clinical Summary ---
Author Organization [employer] ([place], [place], [place], [place]) Address [address] [place] [address] Care Team Providers Care Regional Manager Name Role Phone Silvio Mccain MD Primary Care Provider [phone] Silvio Mccain MD Unavailable [phone] Social History Tobacco Use Types Packs/Day Years [...] 01/28/2030 Insurance BLUE CROSS[facility]BLUE SHIELD [facility] Care Teams Regional Manager Relationship Specialty Start Date End Date Silvio Mccain MD [address] [place] [address] PCP - General Family Medicine 12/30/22 Silvio Mccain MD [address] [address] Referring Physician Family Medicine 12/30/22
--- OUTSIDE RECORDS SUMMARY | 2025-06-26 08:30 | XMS_ITS | Clinical Summary ---
Author Organization Healthcare Address [address] [place] [address] Care Team Providers Care Municipal Court Judge Name Role Phone Yulisa Bcuio APRN Primary Care Provider Allergies No known [...] testing as directed 1 Active HYDROcodone-ac etaminophen (Red Jacket) 10-325 MG tablet Take 1 tablet by mouth every 8 (eight) hours if needed. 1 Active NovoLOG MIX 70/30 FLEXPEN (70-30) 100 UNIT/ML injection Inject 60 units subcutaneously before breakfast and 50 units before dinner [id number] 1 Active lisinopril 5 MG tablet 1 [...] (2 of 2 - PCV) 2017 2016 [id number] Vaccine (3 - season) 2024 01/24/2021, 12/27/2020 [...] 9:44 AM EDT) POCT Hemoglobin A1C 9.7 [facility] [place] 04/30/2020 9:4 4 AM EDT Narrative [facility] - 04/30/2020 9:44 AM EDT Resulting Agency - [facility] P[facility] [[facility] [place]] us Historical Provider POINT OF CARE TEST ENTER/NELSON T ORDERABLES Final Result [facility] [address] [place] [address], from Last 3 Months or Most Recently Relevant to Health Maintenance Insurance [employer]ICAID [facility] AUTO Advance Directives * Full Code (Latest Code Status on File) Date Activated Date Inactivated Comments 09/15/2021 11:11 AM 09/16/2021 4:24 PM Question Answer Comments Patient has decision-making capacity? Yes Care Teams Municipal Court Judge Relationship Specialty Start Date End Date Yulisa Bucio APRN [address] [place] [address] [address] PCP - General 03/15/21
--- OUTSIDE RECORDS SUMMARY | 2025-06-26 08:30 | XMS_ITS | Clinical Summary ---
[facility] Organization [facility] Address [address] [place] [id number] Care Team Providers Care Continuous Dryout Operator Name Role Phone Provider, No Known Primary [...] breakfast and 40units before dinner Max Daily Ozww190 units 0 Active TRUEplus Pen [place] 31G X 5 MM misc USE with [...] 2024 INFLUENZA VACCINE 08/02/2025 2016 Insurance [facility] & B Care Teams Continuous Dryout Operator Relationship Specialty Start Date End Date Provider, No Known [facility] [place] [place] [address] PCP - General 09/06/20
--- OUTSIDE RECORDS SUMMARY | 2025-06-26 08:30 | XMS_ITS | Clinical Summary ---
Author Organization [facility] Address [address] [facility] [address] [place] [address] Phone Care Team Providers Care Tray Drier Name Role Phone Khushi PANDYA, Sergey Pizano [phone] [ ] Conditions or Problems Problem Name [...] classified elsewhere DM II with diabetic PVD [id number] (SNOMED CT) 06/19 Active 06/19 Chari Vazquez Peripheral vascular disease DM II with diabetic peripheral neuropathy E11.42 (ICD-10-CM ) 06/19 Active 06/19 Chari Vazquez Type 2 diabetes mellitus with diabetic polyneuropathy Secondary thrombocytope suha [id number] (SNOMED CT) 06/19 Active 06/19 Chari Vazquez Acquired thrombocytopenia Medications Medication Instructions Start Date Stop Date Generic Name NDC Provider ROCEPHIN SOLUTION RECONSTITUTED Rocephin 2GM IV Q24hrs - [facility] CEFTRIAXONE SODIUM SOLR [id number] Donna Patel RN CUBICIN 500 MG INTRAVENOUS SOLUTION RECONSTITUTED Cubicin 500 mg IV daily - [facility] DAPTOMYCIN [id number] Donna Patel RN CUBICIN 500 MG INTRAVENOUS SOLUTION RECONSTITUTED Cubicin 500 mg IV daily - [facility] DAPTOMYCIN [id number] Armani P ROCEPHIN SOLUTION RECONSTITUTED Rocephin 2GM IV Q24hrs - [facility] CEFTRIAXONE SODIUM SOLR [id number] Armani P ROCEPHIN SOLUTION RECONSTITUTED Rocephin 2GM IV Q24hrs - [facility] CEFTRIAXONE SODIUM SOLR [phone] Antonia Ramos CUBICIN 500 MG INTRAVENOUS SOLUTION RECONSTITUTED Cubicin 500 mg IV daily - [facility] hospital DAPTOMYCIN [phone] Antonia Ramos METFORMIN HCL 500 MG TABS Twice daily. METFORMIN HCL [id number] Mary Olguin LISINOPRIL 5 MG TABS Daily. LISINOPRIL [id number] Mary Olguin GLIMEPIRIDE 4 MG TABS Twice daily. GLIMEPIRIDE [id number] Mary Olguin NEURONTIN 400 MG CAPS Twice daily. GABAPENTIN [id number] Mary Olguin CITALOPRAM HYDROBROMIDE 20 MG TABS Daily. CITALOPRAM HYDROBROMIDE [id number] Mary Olguin ASPIRIN 325 MG TABS Daily. ASPIRIN [id number] Mary Olguin PROMETHAZINE HCL 25 MG TABS Three times daily as needed. PROMETHAZINE HCL [id number] Mary Olguin PRILOSEC 20 MG ORAL CAPSULE DELAYED RELEASE Daily. OMEPRAZOLE [id number] Mary Olguin NITROSTAT SUBL As needed. NITROGLYCERIN SUBL [id number] Mary Olguin FLORASTOR 250 MG CAPS Twice daily. SACCHAROMYCES BOULARDII [id number] Mary Olguin METOPROLOL TARTRATE 25 MG TABS Twice daily. METOPROLOL TARTRATE [id number] Mary Olguin LOVENOX 40 MG/0.4ML SUBCUTANEOUS SOLUTION Daily for 2 weeks for DVT prevention. ENOXAPARIN SODIUM [id number] Mary Olguin OXYCODONE HCL 5 MG TABS 7.5 every 4 hours as needed. OXYCODONE HCL [id number] Mary Olguin Medications Administered No information available. [...] smoking status SMOK STATUS Never smoker Toba junior accountant bookkeeper smoking status Plan of Care Type Date [...] 06/29 CPT-wpc Weekly PICC Line Care 06/29 [address]14 Hepatitis C Atb: (ICD 10 Code: Z11.59) [...]
[2025-06-26 08:44] LABS: Hematocrit 36.5 % (42.0-52.0); Hemoglobin 11.8 g/dL (14.1-18.0); Immature Granulocytes % 0.2 %; Mean Corpuscular HGB Conc 32.3 g/dL (31.8-35.4); Mean Corpuscular Hemoglobin 28.2 pg (27.0-31.2); Mean Corpuscular Volume 87.1 fl (80-94); Nucleated Red Blood Cells % 0 %; Platelet Count 114 K/mm3 (142-424); Red Blood Count 4.19 M/mm3 (4.60-6.20); Red Cell Distribution Width-SD 47.5 fL; White Blood Count 5.1 K/mm3 (4.8-10.8)
[2025-06-26 09:50] LABS: Albumin Level 3.6 g/dl (3.5-5.0); Chloride 111 mmol/L (98-107); Potassium 5.1 mmoL/L (3.5-5.1); Sodium 143 mmol/L (136-145)
[2025-06-26 09:52] LABS: Blood Urea Nitrogen 16 mg/dl (9-20); Creatinine,Serum 1.00 mg/dl (0.66-1.25); Estimated Glomerular Filt Rate 74 ml/min (>60); GFR (African American) 89 ML/MIN (>60)
[2025-06-26 09:53] LABS: Alanine Aminotransferase 34 U/L (12-78); Albumin/Globulin Ratio 1.1 (1.1-1.8); Alkaline Phosphatase 167 U/L (38-126); Anion Gap 15.1 mEq/L (5-15); Aspartate Amino Transferase 65 U/L (17-59); Bilirubin,Total 0.8 mg/dl (0.2-1.3); Calcium 8.5 mg/dl (8.4-10.2); Carbon Dioxide 22 mmol/L (22.0-30.0); Globulin 3.3 g/dL (1.3-3.2); Glucose 73 mg/dl (74-100); Lipase 225 U/L (23-300); Total Protein,Serum 6.9 g/dl (6.3-8.2)
== END 2025-06-26 23:59 | disposition home or self-care (01) ==
LOC: LAB 08:26
PROVIDERS: PCP Family Medicine; Visit Provider Surgery
DX: K85.90 Acute pancreatitis without necrosis or infection, unspecified (principal); R74.8 Abnormal levels of other serum enzymes
CPT/HCPCS: 36415; 80053; 83690; 85025

== ENCOUNTER 2025-06-28 07:45 | Outpatient (CLI) | payer MEDICARE, SELFPAY ==
--- OUTSIDE RECORDS SUMMARY | 2025-06-28 07:47 | XMS_ITS | Clinical Summary ---
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 [id number] (SNOMED CT) 06/19 Active 06/19 Chari Vazquez Acquired thrombocytopenia Medications Medication Instructions Start Date Stop Date Generic Name NDC Provider ROCEPHIN SOLUTION RECONSTITUTED Rocephin 2GM IV Q24hrs - [facility] CEFTRIAXONE SODIUM SOLR [id number] Donna Patel RN CUBICIN 500 MG INTRAVENOUS SOLUTION RECONSTITUTED Cubicin 500 mg [facility] DAPTOMYCIN [id number] Donna Patel RN CUBICIN 500 MG INTRAVENOUS SOLUTION RECONSTITUTED Cubicin 500 mg IV daily - [facility] DAPTOMYCIN [id number] Armani P ROCEPHIN SOLUTION RECONSTITUTED Rocephin 2GM IV Q24hrs - [facility] CEFTRIAXONE SODIUM SOLR [id number] Armani P ROCEPHIN SOLUTION RECONSTITUTED Rocephin [facility]GM [facility] - [facility] CEFTRIAXONE SODIUM SOLR [id number] Antonia Ramos CUBICIN 500 MG INTRAVENOUS SOLUTION RECONSTITUTED Cubicin 500 mg IV daily - [facility] DAPTOMYCIN [id number] Antonia Ramos METFORMIN HCL 500 MG TABS Twice daily. METFORMIN HCL [id number] Mary Olguin LISINOPRIL 5 MG TABS Daily. LISINOPRIL [id number] Mary Olguin GLIMEPIRIDE 4 MG TABS Twice daily. GLIMEPIRIDE [id number] Mary Olguin NEURONTIN 400 MG CAPS Twice daily. GABAPENTIN [id number] Mary Olguin CITALOPRAM HYDROBROMIDE 20 MG TABS Daily. CITALOPRAM HYDROBROMIDE [id number] Mary Olguin ASPIRIN 325 MG TABS Daily. ASPIRIN [id number] Mary Olguin PROMETHAZINE HCL 25 MG TABS Three times daily as needed. PROMETHAZINE HCL [id number] Mary Olguin PRILOSEC 20 MG ORAL CAPSULE DELAYED RELEASE Daily. OMEPRAZOLE [id number] Mary Olguin NITROSTAT SUBL As needed. NITROGLYCERIN SUBL [id number] Mary Olguin FLORASTOR 250 MG CAPS Twice daily. SACCHAROMYCES BOULARDII [id number] Mary Olguin METOPROLOL TARTRATE 25 MG TABS Twice daily. METOPROLOL TARTRATE [id number] Mary Olguin LOVENOX 40 MG/0.4ML SUBCUTANEOUS SOLUTION Daily for 2 weeks for DVT prevention. ENOXAPARIN SODIUM [id number] Mary Olguin OXYCODONE HCL 5 MG TABS 7.5 every 4 hours as needed. OXYCODONE HCL [id number] Mary Olguin Medications Administered No information available. 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
--- OUTSIDE RECORDS SUMMARY | 2025-06-28 07:47 | XMS_ITS | Referral Summary ---
Author Organization [employer] ([place], [place], [place], [place]) Address [address] [place] [address] Care Team Providers Care Rib Cloth Knitter Name Role Phone Silvio Mccain MD Primary Care Provider [phone]- [phone] Silvio Mccain MD Unavailable [phone] Social History Tobacco Use Types Packs/Day Years Used Date Smoking Tobacco: Never Assessed Sex and Gender Information Value Date Recorded Sex Assigned at Not on file Legal Sex Male 6:14 PM CDT Gender Identity Not on file Sexual Orientation Not on file Plan of Treatment Not on file Insurance BLUE CROSS/BLUE SHIELD [facility] Care Teams Rib Cloth Knitter Relationship Specialty Start Date End Date Silvio Mccain MD [address] [place] [address] PCP - General Family Medicine 12/30/22 Silvio Mccain MD [address] [place] [address] Referring Physician Family Medicine 12/30/22
--- OUTSIDE RECORDS SUMMARY | 2025-06-28 07:47 | XMS_ITS | Clinical Summary ---
Author Organization [facility] Address [address] [place] [id number] Care Team Providers Care [id number] Armor Crewman Name Role Phone Provider, No Known Primary [...] breakfast and 40units before dinner Max Daily Oobb488 units 0 Active TRUEplus Pen Bastian 31G X 5 MM misc USE with [...] 2024 INFLUENZA VACCINE 08/02/2025 2016 Insurance AET[employer] [facility] MEDICARE A & B Care Teams [id number] Armor Crewman Relationship Specialty Start Date End Date Provider, No Known [facility] [place] [address] PCP - General 09/06/20
--- OUTSIDE RECORDS SUMMARY | 2025-06-28 07:48 | XMS_ITS | Clinical Summary ---
Author Organization [employer] ([place], [place], [place], [place]) Address [address] [place] [address] Care Team Providers Care Innersole Maker Name Role Phone Silvio Mccain MD Primary Care Provider [phone] Silvio Mccain MD Unavailable [phone] Social History Tobacco Use Types Packs/Day Years [...] or Tdap) 01/28/2030 Insurance BLUE CROSS/BLUE SHIELD [facility] Care Teams Innersole Maker Relationship Specialty Start Date End Date Silvio Mccain MD [address] [place] [address] PCP - General Family Medicine 12/30/22 Silvio Mccain MD [address] [address] Referring Physician Family Medicine 12/30/22
--- OUTSIDE RECORDS SUMMARY | 2025-06-28 07:48 | XMS_ITS | Clinical Summary ---
Author Organization [facility] Address [address] [place] [address] Care Team Providers Care Paper And Prints Restorer Name Role Phone Yulisa Bucio APRN Primary [...] testing as directed 1 Active HYDROcodone-ac etaminophen ([place]) 10-325 MG tablet Take 1 tablet by mouth every 8 (eight) hours if needed. 1 Active NovoLOG MIX 70/30 FLEXPEN (70-30) 100 UNIT/ML injection Inject 60 units subcutaneously before breakfast and 50 units before dinner [id number] 1 Active lisinopril 5 MG tablet 1 [...] (2 of 2 - PCV) 2017 2016 [id number] Vaccine (3 - season) 2024 01/24/2021, 12/27/2020 [...] 9:44 AM EDT) POCT Hemoglobin A1C 9.7 [facility] [place] 04/30/2020 9:4 4 AM EDT Narrative [facility] - 04/30/2020 9:44 AM EDT Resulting Agency - [facility] POC [[facility] [place]] us Historical Provider POINT OF CARE TEST ENTER/NELSON T ORDERABLES Final Result [facility] [address] [place] [address], from Last 3 Months or Most Recently Relevant to Health Maintenance Insurance [employer] MEDICAID A[employer] MEDICAID [facility] AUTO Advance Directives * Full Code (Latest Code Status on File) Date Activated Date Inactivated Comments 09/15/2021 11:11 AM 09/16/2021 4:24 PM Question Answer Comments Patient has decision-making capacity? Yes Care Teams Paper And Prints Restorer Relationship Specialty Start Date End Date Yulisa Bucio APRN [address] [place] [address] PCP - General 03/15/21
[2025-06-28 08:25] LABS: INR 1.10 (0.9-1.1); Prothrombin Time 12.1 seconds (10.1-12.5)
[2025-06-28 09:04] LABS: Albumin Level 3.8 g/dl (3.5-5.0)
[2025-06-28 09:05] LABS: Chloride 110 mmol/L (98-107); Potassium 4.6 mmoL/L (3.5-5.1); Sodium 144 mmol/L (136-145)
[2025-06-28 09:07] LABS: Alanine Aminotransferase 33 U/L (12-78); Alkaline Phosphatase 142 U/L (38-126); Anion Gap 12.6 mEq/L (5-15); Aspartate Amino Transferase 64 U/L (17-59); Bilirubin,Total 0.6 mg/dl (0.2-1.3); Blood Urea Nitrogen 13 mg/dl (9-20); Carbon Dioxide 26 mmol/L (22.0-30.0); Creatinine,Serum 0.70 mg/dl (0.66-1.25); Estimated Glomerular Filt Rate 111 ml/min (>60); GFR (African American) 135 ML/MIN (>60)
[2025-06-28 09:08] LABS: Albumin/Globulin Ratio 1.1 (1.1-1.8); Calcium 8.7 mg/dl (8.4-10.2); Globulin 3.4 g/dL (1.3-3.2); Glucose 59 mg/dl (74-100); Iron 53 ug/dL (49-181); Lipase 248 U/L (23-300); Total Protein,Serum 7.2 g/dl (6.3-8.2)
[2025-06-28 09:17] LABS: Total Iron Binding Capacity 339 ug/dL (261-462)
[2025-06-28 09:42] LABS: Ferritin 23.1 ng/ml (17.9-464)
[2025-07-05 10:11] LABS: ALT (SGPT) P5P 34 IU/L (0-55); AST (SGOT) P5P 58 IU/L (0-40); Alpha 2-Macroglobulins, Qn 369 mg/dL (110-276); Bilirubin, Total 0.3 mg/dL (0.0-1.2); Cholesterol, Total 146 mg/dL (100-199); GGT 182 IU/L (0-65); Glucose 59 mg/dL (70-99); Triglycerides 174 mg/dL (0-149)
== END 2025-06-28 23:59 | disposition home or self-care (01) ==
LOC: LAB 07:45
PROVIDERS: PCP Family Medicine; Visit Provider Nurse Practitioner Family
DX: R74.8 Abnormal levels of other serum enzymes (principal)
CPT/HCPCS: 36415; 80053; 80074; 81596; 82172; 82247; 82465; 82728; 82947; 82977; 83521; 83540; 83550; 83690; 84450; 84460; 84478; 85610

== ENCOUNTER 2025-07-28 11:12 | Outpatient (CLI) | payer MEDICARE, MEDICAID, SELFPAY ==
--- OUTSIDE RECORDS SUMMARY | 2025-07-28 11:13 | XMS_ITS | Clinical Summary ---
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 81177111 (SNOMED CT) 06/19 Active 06/19 Chari Vazquez Acquired thrombocytopenia Medications Medication Instructions Start Date Stop Date Generic Name NDC Provider ROCEPHIN SOLUTION RECONSTITUTED Rocephin 2GM IV Q24hrs - [facility] CEFTRIAXONE SODIUM SOLR [id number] Donna Patel RN CUBICIN 500 MG INTRAVENOUS SOLUTION RECONSTITUTED Cubicin 500 mg [facility] - [facility] DAPTOMYCIN [id number] Donna Patel RN CUBICIN 500 MG INTRAVENOUS SOLUTION RECONSTITUTED Cubicin 500 mg IV daily - [facility] DAPTOMYCIN [id number] Armani P ROCEPHIN SOLUTION RECONSTITUTED Rocephin 2GM IV Q24hrs - [facility] CEFTRIAXONE SODIUM SOLR [id number] Armani P ROCEPHIN SOLUTION RECONSTITUTED Rocephin 2GM IV Q24hrs - [facility] CEFTRIAXONE SODIUM SOLR [id number] Antonia Ramos CUBICIN 500 MG INTRAVENOUS SOLUTION RECONSTITUTED Cubicin 500 mg IV daily - [facility] DAPTOMYCIN [id number] Antonia Ramos METFORMIN HCL 500 MG TABS Twice daily. METFORMIN HCL [id number] Mary Olguin LISINOPRIL 5 MG TABS Daily. LISINOPRIL [id number] Mary Olguin GLIMEPIRIDE 4 MG TABS Twice daily. GLIMEPIRIDE [id number] Mary Olguin NEURONTIN 400 MG CAPS Twice daily. GABAPENTIN [id number] Mary Olguin CITALOPRAM HYDROBROMIDE 20 MG TABS Daily. CITALOPRAM HYDROBROMIDE [id number] Mary Olguin ASPIRIN 325 MG TABS Daily. ASPIRIN [id number] Mary Olguin PROMETHAZINE HCL 25 MG TABS Three times daily as needed. PROMETHAZINE HCL [id number] Mary Olguin PRILOSEC 20 MG ORAL CAPSULE DELAYED RELEASE Daily. OMEPRAZOLE [id number] Mary Olguin NITROSTAT SUBL As needed. NITROGLYCERIN SUBL [id number] Mary Olguin FLORASTOR 250 MG CAPS Twice daily. SACCHAROMYCES BOULARDII [id number] Mary Olguin METOPROLOL TARTRATE 25 MG TABS Twice daily. METOPROLOL TARTRATE [id number] Mary Olguin LOVENOX 40 MG/0.4ML SUBCUTANEOUS SOLUTION Daily for 2 weeks for DVT prevention. ENOXAPARIN SODIUM [id number] Mary Olguin OXYCODONE HCL 5 MG TABS 7.5 every 4 hours as needed. OXYCODONE HCL [id number] Mary Olguin Medications Administered No information available. 

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
--- OUTSIDE RECORDS SUMMARY | 2025-07-28 11:14 | XMS_ITS | Clinical Summary ---
Author Organization [employer] ([place], [place], [place], [place]) Address [address] [place] [address] Care Team Providers Care Nicker Name Role Phone Silvio Mccain MD Primary Care Provider [phone] Silvio Mccain MD Unavailable [phone] Social History Tobacco Use Types Packs/Day Years [...] years (2 of 2 - PCV) 2017 Falls Risk Screening 11/02/2024 COVID-19 VACCINE (3 - season) 2025, 12/27/2020 Influenza Vaccine (#1) 2025 2016 Respiratory Syncytial Virus (RSV) Adult or (1 - 1-dose 75+ series) 2029 DTAP/TDAP/TD VACCINES (2 - Td or Tdap) 01/28/2030 Insurance BLUE CROSS/[facility] Care Teams Nicker Relationship Specialty Start Date End Date Silvio Mccain MD [address] [place] [address] PCP - General Family Medicine 12/30/22 Silvio Mccain MD [address] [address] Referring Physician Family Medicine 12/30/22
--- OUTSIDE RECORDS SUMMARY | 2025-07-28 11:14 | XMS_ITS | Clinical Summary ---
[facility] Organization [facility] Address [address] [place] [id number] Care Team Providers Care Certified Nurse Aide Name Role Phone Provider, No Known Primary [...] breakfast and 40units before dinner Max Daily Xwxu412 units 0 Active TRUEplus Pen [place] 31G X 5 MM misc USE with [...] ANNUAL PHYSICAL 09/06/2020 HEPATITIS C SCREENING 09/06/2020 INFLUENZA VACCINE 06/02/2025 2016 COVID-19 Vaccine ( - season) 2025 Insurance AETNA [facility] MEDICARE A & B Care Teams Certified Nurse Aide Relationship Specialty Start Date End Date Provider, No Known [facility] [place] [address] PCP - General 09/06/20
--- OUTSIDE RECORDS SUMMARY | 2025-07-28 11:14 | XMS_ITS | Referral Summary ---
Author Organization [employer] ([place], [place], [place], [place]) Address [address] [place] [address] Care Team Providers Care Service Order Taker Name Role Phone Silvio Mccain MD Primary Care Provider [phone]- [phone] Silvio Mccain MD Unavailable Social History Tobacco Use Types Packs/Day Years Used Date Smoking Tobacco: Never Assessed Sex and Gender Information Value Date Recorded Sex Assigned at Not on file Legal Sex Male 6:14 PM CDT Gender Identity Not on file Sexual Orientation Not on file Plan of Treatment Not on file Insurance BLUE CROSS/BLUE SHIELD [facility] Care Teams Service Order Taker Relationship Specialty Start Date End Date Silvio Mccain MD [address] [place] [address] PCP - General Family Medicine 12/30/22 Silvio Mccain MD [address] [place] [address] Referring Physician Family Medicine 12/30/22
--- NOTE | 2025-07-28 13:00 | CA_ITS ---
APPROVED REPORT EXAM: Comprehensive 2D, Doppler, and color-flow Echocardiogram Airplane Tube Builder: Brandee Montero RVT Ht: 5 ft 9 in Wt: 174lbs BSA: 1.95 BP: 135/65 mmHg Indications: PRE-OP,CORONARY ARTERY DISEASE 2D Dimensions LA Volume 51.00 mL LA Volume Index 26.15 mL/m2 (M/F) 16-34 M-Mode Dimensions RVDd 3.10 cm (0.9-2.6) LA Diam 4.35 cm (1.9-4.0) LVDd 4.08 cm (3.5-5.7) LVDs 3.06 cm (3.5-5.7) IVSd 0.81 cm (0.6-1.1) PWd 0.89 cm (0.6-1.1) EF (Teich) 50.00% FS 25.00% EDV (Teich) 73.40 mL TAPSE 1.82 (<1.7) ESV (Teich) 36.70 mL LV Diastology E Decel Time 193 (160-240 msec) E/A Ratio 1.3 Aortic Valve SUSANNAH Index 1.17 cm2/m2 AoV Peak Kavon. 115.0 (50-130 cm/s) AO Peak GR. 5.30 mmHg AO Mean GR. 3.00 (<5 mmHg) AO VTI 24.4 (18-25 cm) SUSANNAH (VTI) 2.32 (2.5-4.5 cm2) Mitral Valve MV E Max Kavon. 78.0 (40-130 cm/s) MV A Velocity 60.0 (40-130 cm/s) E/A Ratio 1.29 MV PHT 57.0 ms Pulmonary Valve PV Peak Velocity 77.0 (50-150 cm/s) Left Ventricle The left ventricle is normal size. Left ventricular systolic function is normal. The left ventricular ejection fraction is within the normal range. Proximal septal thickening is present. There is normal LV segmental wall motion. The left ventricular diastolic function is normal. LVEF is 55% Right Ventricle The right ventricle is normal size. The right ventricular systolic function is normal. Atria The left atrium is mildly dilated. The right atrium size is normal. There is no color Doppler evidence of interatrial shunt. Aortic Valve The aortic valve opens well. There is no hemodynamically significant aortic valvular stenosis. No aortic regurgitation is present. Mitral Valve The mitral valve is normal in structure. No evidence of mitral valve stenosis. Mild mitral regurgitation is present. Tricuspid Valve The tricuspid valve leaflets are thin and pliable. Trace tricuspid regurgitation. There is insufficient TR jet to estimate RVSP. Pulmonic Valve The pulmonary valve is grossly normal in structure. Trace pulmonic valve regurgitation is present. Great Vessels The aortic root is normal in size. IVC is normal in size and collapses >50% with inspiration. Pericardium There is no pericardial effusion. Other Information Study Quality: Fair Conclusion Normal biventricular systolic function. Mild LA dilation. Mild MR. Electronically signed by : Deepa Rodrigues MD 08/01/2025 12:56:19
== END 2025-07-28 23:59 | disposition home or self-care (01) ==
LOC: RT 11:12
PROVIDERS: PCP Family Medicine; Visit Provider Nurse Practitioner Family
DX: Z01.810 Encounter for preprocedural cardiovascular examination (principal); I34.0 Nonrheumatic mitral (valve) insufficiency; I51.7 Cardiomegaly; I25.10 Atherosclerotic heart disease of native coronary artery without angina pectoris; Z95.1 Presence of aortocoronary bypass graft; R94.31 Abnormal electrocardiogram [ECG] [EKG]
CPT/HCPCS: 93306

== ENCOUNTER 2025-08-02 13:45 | Outpatient (CLI) | payer MEDICARE, MEDICAID, SELFPAY ==
--- OUTSIDE RECORDS SUMMARY | 2025-08-03 11:52 | XMS_ITS | Clinical Summary ---
Author Organization [facility] Address [address] 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 11143299 (SNOMED CT) 06/19 Active 06/19 Chari Vazquez Acquired thrombocytopenia Medications Medication Instructions Start Date Stop Date Generic Name NDC Provider ROCEPHIN SOLUTION RECONSTITUTED Rocephin 2GM IV Q24hrs - [facility] CEFTRIAXONE SODIUM SOLR [id number] Donna Patel RN CUBICIN 500 MG INTRAVENOUS SOLUTION RECONSTITUTED Cubicin 500 mg [facility] - [facility] DAPTOMYCIN [id number] Donna Patel RN CUBICIN 500 MG INTRAVENOUS SOLUTION RECONSTITUTED Cubicin 500 mg IV daily - [facility] DAPTOMYCIN [id number] Armani P ROCEPHIN SOLUTION RECONSTITUTED Rocephin 2GM IV Q24hrs - [facility] CEFTRIAXONE SODIUM SOLR [id number] Armani P ROCEPHIN SOLUTION RECONSTITUTED [facility]cephin [facility]GM [facility] CEFTRIAXONE SODIUM SOLR [id number] Antonia Ramos CUBICIN 500 MG INTRAVENOUS SOLUTION RECONSTITUTED Cubicin 500 mg IV daily - [facility] DAPTOMYCIN [id number] Antonia Ramos METFORMIN HCL 500 MG TABS Twice daily. METFORMIN HCL [id number] Mary Olguin LISINOPRIL 5 MG TABS Daily. LISINOPRIL [id number] Mary Olguin GLIMEPIRIDE 4 MG TABS Twice daily. GLIMEPIRIDE [id number] Mary Olguin NEURONTIN 400 MG CAPS Twice daily. GABAPENTIN [id number] Mray Olguin CITALOPRAM HYDROBROMIDE 20 MG TABS Daily. CITALOPRAM HYDROBROMIDE [id number] Mary Olguin ASPIRIN 325 MG TABS Daily. ASPIRIN [id number] Mary Olguin PROMETHAZINE HCL 25 MG TABS Three times daily as needed. PROMETHAZINE HCL [id number] Mary Olguin PRILOSEC 20 MG ORAL CAPSULE DELAYED RELEASE Daily. OMEPRAZOLE [id number] Mary Olguin NITROSTAT SUBL As needed. NITROGLYCERIN SUBL [id number] Mary Olguin FLORASTOR 250 MG CAPS Twice daily. SACCHAROMYCES BOULARDII [id number] Mary Olguin METOPROLOL TARTRATE 25 MG TABS Twice daily. METOPROLOL TARTRATE [id number] Mary Olguin LOVENOX 40 MG/0.4ML SUBCUTANEOUS SOLUTION Daily for 2 weeks for DVT prevention. ENOXAPARIN SODIUM [id number] Mary Olguin OXYCODONE HCL 5 MG TABS 7.5 every 4 hours as needed. OXYCODONE HCL [id number] Mary Olguin Medications Administered No information available. 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
--- OUTSIDE RECORDS SUMMARY | 2025-08-03 11:52 | XMS_ITS | Clinical Summary ---
Author Organization [employer] ([place], [place], [place], [place]) Address [address] [place] [address] Care Team Providers Care Collet Making Machine Operator Name Role Phone Silvio Mccain MD Primary Care Provider [phone] Silvio Mccain MD Unavailable [phone] Social History Tobacco Use Types Packs/Day Years [...] 2017 Falls Risk Screening 11/02/2024 COVID-19 VACCINE ( - season) 2025, 12/27/2020 Influenza Vaccine (#1) 2025 2016 Respiratory Syncytial Virus (RSV) Adult or (1 - 1-dose 75+ series) 2029 DTAP/TDAP/TD VACCINES (2 - Td or Tdap) 01/28/2030 Insurance [facility] CROSS[facility] Care Teams Collet Making Machine Operator Relationship Specialty Start Date End Date Silvio Mccain MD [address] [place] [address] PCP - General Family Medicine 12/30/22 Silvio Mccain MD [address] [address] Referring Physician Family Medicine 12/30/22
--- OUTSIDE RECORDS SUMMARY | 2025-08-03 11:52 | XMS_ITS | Referral Summary ---
Author Organization [employer] ([place], [place], [place], [place]) Address [address] [place] [address] Care Team Providers Care Armhole Feller Handstitching Machine Name Role Phone Silvio Mccain MD Primary Care Provider [phone] Silvio Mccain MD Unavailable [phone] Social History Tobacco Use Types Packs/Day Years Used Date Smoking Tobacco: Never Assessed Sex and Gender Information Value Date Recorded Sex Assigned at Not on file Legal Sex Male 6:14 PM CDT Gender Identity Not on file Sexual Orientation Not on file Plan of Treatment Not on file Insurance BLUE CROSS/BLUE SHIELD [facility] Care Teams Armhole Feller Handstitching Machine Relationship Specialty Start Date End Date Silvio Mccain MD [address] [place] [address] PCP - General Family Medicine 12/30/22 Silvio Mccain MD [address] [place] [address] Referring Physician Family Medicine 12/30/22
--- OUTSIDE RECORDS SUMMARY | 2025-08-03 11:52 | XMS_ITS | Clinical Summary ---
Author Organization Healthcare Address [address] [place] [address] Care Team Providers Care Natural Resources Faculty Member Name Role Phone Yulisa Bucio APRN Primary [...] testing as directed 1 Active HYDROcodone-ac etaminophen ([place]) 10-325 MG tablet Take 1 tablet by mouth every 8 (eight) hours if needed. 1 Active NovoLOG MIX 70/30 FLEXPEN (70-30) 100 UNIT/ML injection Inject 60 units subcutaneously before breakfast and 50 units before dinner [id number] 1 Active lisinopril 5 MG tablet 1 [...] (2 of 2 - PCV) 2017 2016 [id number] Vaccine (3 - 2024- season) 2025 01/24/2021, [...] 9:44 AM EDT) POCT Hemoglobin A1C 9.7 [facility] [place] 04/30/2020 9:44 AM EDT Narrative [facility] - 04/30/2020 9:44 AM EDT Resulting Agency - [facility] [[facility] [place]] us Historical Provider POINT OF CARE TEST ENTER/NELSON T ORDERABLES Final Result [facility] [address] [place] [address], from Last 3 Months or Most Recently Relevant to Health Maintenance Insurance [employer] MEDICAID A[employer] MEDICAID [facility] AUTO Advance Directives * Full Code (Latest Code Status on File) Date Activated Date Inactivated Comments 09/15/2021 11:11 AM 09/16/2021 4:24 PM Question Answer Comments Patient has decision-making capacity? Yes Care Teams Natural Resources Faculty Member Relationship Specialty Start Date End Date Yulisa Bucio APRN [address] [place] [address] [place], [place] [address] PCP - General 03/15/21
--- OUTSIDE RECORDS SUMMARY | 2025-08-03 11:52 | XMS_ITS | Clinical Summary ---
[facility] Address [address] [place] [id number] Care Team Providers Care Aquatics Manager Name Role Phone Provider, No Known Primary [...] breakfast and 40units before dinner Max Daily [id number] units 0 Active TRUEplus Pen [place] 31G X 5 MM misc USE with [...] Vaccine ( - season) 2025 Insurance AETNA [facility] MEDICARE A & B Care Teams Aquatics Manager Relationship Specialty Start Date End Date Provider, No Known [facility] [place] [address] PCP - General 09/06/20
== END 2025-08-02 23:59 ==
LOC: LAB.DROPOF 08-03 11:50
PROVIDERS: PCP Family Medicine; Visit Provider Family Medicine
DX: R35.1 Nocturia (principal)
CPT/HCPCS: G0103

== ENCOUNTER 2025-10-20 10:11 | Outpatient (CLI) | payer MEDICARE, MEDICAID, SELFPAY ==
[2025-10-20 08:21] VITALS: BMI 27.6
--- OUTSIDE RECORDS SUMMARY | 2025-10-20 10:14 | XMS_ITS | Clinical Summary ---
Author Organization [employer] ([place], [place], [place], [place], [place]) Address [address] [place] [address] Care Team Providers Care Computer Trainer Name Role Phone Silvio Mccain MD Primary Care Provider [phone] Silvio Mccain MD Unavailable [phone] Social History Tobacco Use Types Packs/Day Years Used Date Smoking Tobacco: Never Assessed Sex and Gender Information Value Date Recorded Sex Assigned at Not on file Legal Sex Male 6:14 PM CDT Gender Identity Not on file Sexual Orientation Not on file Plan of Treatment Upcoming Encounters Date Type Department Care Team (Late st Contact Info) Description 12/14/2025 10:00 AM EST Office Visit [facility] Urology - [address] [place] [address] [address] Hector Cantu MD [address] [place] [address] [address] Health Maintenance Due Date Last Done Comments [...] (2 - Td or Tdap) 01/28/2030 Insurance [address] [place] [address] BLUE CROSS/BLUE SHIELD [facility] Care Teams Computer Trainer Relationship Specialty Start Date End Date Silvio Mccain MD [address] [place] [address] PCP - General Family Medicine 12/30/22 Silvio Mccain MD [address] [place], [place] [id number] Referring Physician Family Medicine 12/30/22
--- OUTSIDE RECORDS SUMMARY | 2025-10-20 10:14 | XMS_ITS | Referral Summary ---
Author Organization [employer] ([place], [place], [place], [place], [place]) Address [address] [place] [address] Care Team Providers Care Pet Feeder Name Role Phone Silvio Mccain MD Primary Care Provider [phone] Silvio Mccain MD Unavailable [phone] Social History Tobacco Use Types Packs/Day Years Used Date Smoking Tobacco: Never Assessed Sex and Gender Information Value Date Recorded Sex Assigned at Not on file Legal Sex Male 6:14 PM CDT Gender Identity Not on file Sexual Orientation Not on file Plan of Treatment Upcoming Encounters Date Type Department Care Team (Late st Contact Info) Description 12/14/2025 10:00 AM EST Office Visit [facility] Urology - [address] [address] Hector Cantu MD [address] [place] [phone] Insurance BLUE CROSS/BLUE SHIELD [facility]ETNA [facility] Care Teams Pet Feeder Relationship Specialty Start Date End Date Silvio Mccain MD [address] [place] [address] PCP - General Family Medicine 12/30/22 Silvio Mccain MD [address] [place] [address] Referring Physician Family Medicine 12/30/22
--- OUTSIDE RECORDS SUMMARY | 2025-10-20 10:14 | XMS_ITS | Clinical Summary ---
[facility] Organization [facility] Address [address] [place] [id number] Care Team Providers Care General Road Production Manager Name Role Phone Provider, No Known [...] breakfast and 40units before dinner Max Daily [id number] units 0 Active TRUEplus Pen [place] 31G X 5 MM misc USE with [...] Vaccine ( - season) 2025 Insurance AETNA [facility] MEDICARE A & B Care Teams General Road Production Manager Relationship Specialty Start Date End Date Provider, No Known [facility] [place] [address] PCP - General 09/06/20
--- OUTSIDE RECORDS SUMMARY | 2025-10-20 10:14 | XMS_ITS | Clinical Summary ---
Author Organization Healthcare Address [address] [place] [address] Care Team Providers Care Director Social Welfare Name Role Phone Yulisa Bucio APRN Primary [...] testing as directed 1 Active HYDROcodone-ac etaminophen ([place]) 10-325 MG tablet Take 1 tablet by mouth every 8 (eight) hours if needed. 1 Active NovoLOG MIX 70/30 FLEXPEN (70-30) 100 UNIT/ML injection Inject 60 units subcutaneously before breakfast and 50 units before dinner [id number] 1 Active lisinopril 5 MG tablet 1 [...] Years Used Date Smoking Tobacco: Former Cigarettes 0 Q uit: 1998 Smokeless Tobacco: Never Alcohol [...] (2 of 2 - PCV) 2017 2016 [id number] Vaccine (3 - season) 2025 01/24/2021, 12/27/2020 [facility]-Influenza Vaccine (#1) 07/03/202508/29, 2016, 08/14/2015, Additional history exists [facility]-RSV Vaccine: 60+ Years or (1 - 1-dose 75+ series) 2029 [facility]-Diabetes: Hemoglobin A1C Discontinued 04/30/2020, 08/18/2019 HPV Vaccines (No Doses Required) Completed [facility]-HIB Vaccines Aged Out No longer e [...] 9:44 AM EDT) POCT Hemoglobin A1C 9.7 [facility] [place] 04/30/2020 9:44 AM EDT Narrative [facility] - 04/30/2020 9:44 AM EDT Resulting Agency - [facility] POC [[facility] [place]] us Historical Provider POINT OF CARE TEST ENTER/NELSON T ORDERABLES Final Result [facility] [place] [address] [place] [address], from Last 3 Months or Most Recently Relevant to Health Maintenance Insurance A[employer] MEDICAID AETNA [employer] MEDICAID [facility] AUTO Advance Directives * Full Code (Latest Code Status on File) Date Activated Date Inactivated Comments 09/15/2021 11:11 AM 09/16/2021 4:24 PM Question Answer Comments Patient has decision-making capacity? Yes Care Teams Director Social Welfare Relationship Specialty Start Date End Date Yulisa Bucio APRN [address] [place] [address] PCP - General 03/15/21
--- OUTSIDE RECORDS SUMMARY | 2025-10-20 10:14 | XMS_ITS | Clinical Summary ---
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 [id number] (SNOMED CT) 06/19 Active 06/19 Chari Vazquez Acquired thrombocytopenia Medications Medication Instructions Start Date Stop Date Generic Name NDC Provider ROCEPHIN SOLUTION RECONSTITUTED Rocephin 2GM IV Q24hrs - [facility] CEFTRIAXONE SODIUM SOLR [id number] Donna Patel RN CUBICIN 500 MG INTRAVENOUS SOLUTION RECONSTITUTED Cubicin 500 mg IV daily - [facility] DAPTOMYCIN [id number] Donna Patel RN CUBICIN 500 MG INTRAVENOUS SOLUTION RECONSTITUTED Cubicin 500 mg IV daily - [facility] DAPTOMYCIN [id number] Armani P ROCEPHIN SOLUTION RECONSTITUTED Rocephin 2GM IV Q24hrs - [facility] CEFTRIAXONE SODIUM SOLR [id number] Armani P ROCEPHIN SOLUTION RECONSTITUTED Rocephin 2GM IV Q24hrs - [facility] CEFTRIAXONE SODIUM SOLR [id number] Antonia Ramos CUBICIN 500 MG INTRAVENOUS SOLUTION RECONSTITUTED Cubicin 500 mg IV daily - [facility] DAPTOMYCIN [id number] Antonia Ramos METFORMIN HCL 500 MG TABS Twice daily. METFORMIN HCL [id number] Mary Olguin LISINOPRIL 5 MG TABS Daily. LISINOPRIL [id number] Mary Olguin GLIMEPIRIDE 4 MG TABS Twice daily. GLIMEPIRIDE [id number] Mary Olguin NEURONTIN 400 MG CAPS Twice daily. GABAPENTIN [id number] Mary Olguin CITALOPRAM HYDROBROMIDE 20 MG TABS Daily. CITALOPRAM HYDROBROMIDE [id number] Mary Olguin ASPIRIN 325 MG TABS Daily. ASPIRIN [id number] Mary Olguin PROMETHAZINE HCL 25 MG TABS Three times daily as needed. PROMETHAZINE HCL [id number] Mary Olguin PRILOSEC 20 MG ORAL CAPSULE DELAYED RELEASE Daily. OMEPRAZOLE [id number] Mary Olguin NITROSTAT SUBL As needed. NITROGLYCERIN SUBL [id number] Mary Olguin FLORASTOR 250 MG CAPS Twice daily. SACCHAROMYCES BOULARDII [id number] Mary Olguin METOPROLOL TARTRATE 25 MG TABS Twice daily. METOPROLOL TARTRATE [id number] Mary Olguin LOVENOX 40 MG/0.4ML SUBCUTANEOUS SOLUTION Daily for 2 weeks for DVT prevention. ENOXAPARIN SODIUM [id number] Mary Olguin OXYCODONE HCL 5 MG TABS 7.5 every 4 hours as needed. OXYCODONE HCL [id number] Mary Olguin Medications Administered No information available. 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
[2025-10-20 11:10] LABS: Hematocrit 33.1 % (42.0-52.0); Hemoglobin 10.5 g/dL (14.1-18.0); Immature Granulocytes % 0.3 %; Mean Corpuscular HGB Conc 31.7 g/dL (31.8-35.4); Mean Corpuscular Hemoglobin 27.1 pg (27.0-31.2); Mean Corpuscular Volume 85.5 fl (80-94); Nucleated Red Blood Cells % 0 %; Platelet Count 95 K/mm3 (142-424); Red Blood Count 3.87 M/mm3 (4.60-6.20); Red Cell Distribution Width-SD 46.5 fL; White Blood Count 4.0 K/mm3 (4.8-10.8)
[2025-10-20 11:17] LABS: Albumin Level 4.4 g/dl (3.5-5.0); Chloride 106 mmol/L (98-107)
[2025-10-20 11:18] LABS: Potassium 4.5 mmoL/L (3.5-5.1); Sodium 142 mmol/L (136-145)
[2025-10-20 11:20] LABS: Blood Urea Nitrogen 15 mg/dl (9-20); Creatinine Clearance Estimated 81 mL/min (50-200); Creatinine,Serum 0.90 mg/dl (0.66-1.25); Estimated Glomerular Filt Rate 83 ml/min (>60); GFR (African American) 101 ML/MIN (>60)
[2025-10-20 11:21] LABS: Alanine Aminotransferase 39 U/L (12-78); Albumin/Globulin Ratio 1.2 (1.1-1.8); Alkaline Phosphatase 142 U/L (38-126); Anion Gap 14.5 mEq/L (5-15); Aspartate Amino Transferase 54 U/L (17-59); Bilirubin,Total 0.7 mg/dl (0.2-1.3); Calcium 9.4 mg/dl (8.4-10.2); Carbon Dioxide 26 mmol/L (22.0-30.0); Globulin 3.7 g/dL (1.3-3.2); Glucose 112 mg/dl (74-100); Total Protein,Serum 8.1 g/dl (6.3-8.2)
[2025-10-20 11:22] LABS: INR 1.08 (0.9-1.1); Prothrombin Time 11.9 seconds (10.1-12.5)
== END 2025-10-20 23:59 | disposition home or self-care (01) ==
LOC: PREOP 10:12
PROVIDERS: PCP Family Medicine; Visit Provider Surgery
DX: Z01.812 Encounter for preprocedural laboratory examination (principal)
CPT/HCPCS: 80053; 85025; 85610

== ENCOUNTER 2025-10-30 13:48 | Observation (INO) | payer MEDICARE, MEDICAID, SELFPAY ==
[2025-10-20 13:44] VITALS: BMI 27.6
[2025-10-30] VITALS (16 sets, daily range): BP systolic 125–156; BP diastolic 58–93; PULSE 79–92; RESP 16–20; TEMP 36.4–38; O2SAT 93–100; BMI 26.9
--- NOTE | 2025-10-30 10:28 | P.PNANES_ITS ---
[facility] Disclaimer: The information contained in this section may have been updated after the patient was seen, as this information can be updated by other users. Medical History Psoriasis Pre-operative cardiovascular examination Abnormal electrocardiogram [ECG] [EKG] CAD, multiple vessel Nausea vomiting and diarrhea Abdominal pain Acute pancreatitis Acute lower respiratory infection Hoarseness Tinea corporis Cough Sinus congestion Shortness of breath Head congestion Breathlessness Cough Left anterior shoulder pain Vomiting Influenza A Abdominal pain Hyperlipidemia Hypertension IDDM (insulin dependent diabetes mellitus) Nasal drainage Erectile dysfunction Pre-ulcerative calluses Arthritis Sinusitis Splenomegaly Sepsis Colitis Left shoulder pain Edema Sinus mucosal thickening Diastasis recti Sunburn Deviated nasal septum Chronic sinusitis Incurvated nail COPD (chronic obstructive pulmonary disease) Shoulder pain, bilateral TMJ arthralgia Cervical paraspinous muscle spasm Pharyngitis Acute bronchitis Otitis externa Cerumen impaction Acute sinusitis Diabetic foot Callus of foot Muscle strain Rib pain on right side Bruising Pain of right upper arm Pain in right shoulder Neck Pain Callus History of diabetes mellitus, type II History of hyperlipidemia History of hypertension Cellulitis of left foot Carpal tunnel syndrome of right wrist Cellulitis VRE (vancomycin resistant enterococcus) culture positive Gas gangrene of foot Foot abscess, right Severe sepsis with acute organ dysfunction Cellulitis of right foot Diabetic ulcer of left foot Diabetic foot Type 2 diabetes mellitus with diabetic polyneuropathy, with long-term current use of insulin Amputation of toe of left foot Other acute osteomyelitis, right ankle and foot Diabetic ulcer of toe of right foot associated with type 2 diabetes mellitus, limited to breakdown of skin Diabetes mellitus Foot osteomyelitis, right Diabetic infection of right foot Diabetic ulcer of right foot Encounter for wound care Onychomycosis Nail dystrophy Overweight (BMI 25.0-29.9) Left foot pain Hammertoes of both feet Diabetes mellitus with diabetic neuropathy, with long-term current use of insulin Amputation of one or more toes Equinus contracture of left ankle Gangrene of toe of left foot Diabetic foot infection Cellulitis and abscess of foot Infected surgical wound Dyspnea Non-STEMI (non-ST elevated myocardial infarction) Surgical History History of nasal septoplasty Status post nasal septoplasty History of amputation of toe History of amputation of toe Hx of cataract surgery Status post foot surgery History of amputation of right great toe S/P CABG x 6 Family History Mother Heart attack Social History Smoking Status: Former smoker tobacco type: cigarettes packs per day: 3 pack- years: 74 years smoked: 25 smoking status stop date: 11/02/2001 how long ago did patient quit smokin second hand exposure: Yes alcohol intake: former substance use type: denies use current occupational status: disabled Travel in the last 8 weeks?: None household members: none housing: apartment caffeine: Yes Have you lived/traveled outside US in past 30 days?: No Contact w/someone who lives/traveled outside US past 30 days?: No Exposure to someone with infectious disease in past 14 days?: No Do you have a fever (greater than 100.4 F or 38 C)?: No Have you tested positive for COVID-19?: No Exposed to someone with COVID-19 in past 14 days?: No Do you have a sore throat?: No Do you have a cough?: No Do you have any weakness?: No Do you have any diarrhea?: No Are you experiencing any unusual bleeding?: No Do you have any muscle aches/pain?: No Do you have any abdominal pain?: No Are you experiencing loss of taste or smell?: No [facility] Anesthesia Checklist Patient Identification Patient Identification: Arm Band and Verbal (Name & ) Structural Data Admitted From: Home Planned Operative Procedure/s: Lap Cholecystectomy Consent for Planned Operative Procedure(s) Verified: Yes Verified Documents: Surgical Consent NPO Status Verified Time NPO: 00:00 Chart Verification Results Verified: ECG Additional verifications Fingerstick Blood Glucose: 50 Anesthesia Reactions: No Hx Blood Transfusions: No Blood Transfusion Reaction: No Airway Assessment Mallampati Score:: Class II C-Spine Mobility Assessed: No TMJ Mobility Assessed: No Dentition: Edentulous Neurological Assessment Level of Consciousness: Awake, Alert and Appropriate Hx Seizures: No Numbness or tingling in extremities: No Anesthesia Plan Anesthesia Risk discussed: Yes Anesthesia Plan: Verified ASA Class: III Anesthesia Type: General
--- NOTE | 2025-10-30 10:37 | EXP.GEN.HP ---
HPI HPI HPI: Patient presents for cholecystectomy. Patient is a 69-year-old male from [place] with a history of COPD, insulin-dependent diabetes, coronary artery disease, hypertension, and chronic pain who presented to the emergency department on 06/15/2025 with multiple episodes of diarrhea, nausea, vomiting, and abdominal pain. Workup in the emergency department revealed a significantly elevated lipase of 40,000 with mild leukocytosis, hypomagnesemia, mildly elevated lactate. Diarrhea panel was positive for enteroaggregate of E. coli. He was admitted for inpatient management. He underwent a right upper quadrant ultrasound which revealed gallstones distention and gallbladder wall thickening with fatty liver, cirrhosis not excluded. He did undergo gastroenterology consultation as an inpatient. He did not require ERCP. He was managed without intervention and set up for outpatient follow-up for his gallbladder. Of note, blood work while inpatient revealed a platelet count of 81,000. His sodium was 135. Previous hepatitis C was negative. He states that he previously had a history of heavy alcohol consumption but has been abstinent for about 15 years. I had him undergo cardiology risk assessment. Also the patient had some significant skin reaction around the suprapubic location and umbilicus. Initially I thought that this was cutaneous candidiasis and treated this however it was refractory. It was then determined that this was likely psoriasis. He has reestablished care with a emergency specialist. I was hoping that this could be cleared prior to surgery. However it persists. He did have a recent gallbladder attack which was self-limited a few days ago. He had an echocardiogram on 08/01/2025. . [facility] Disclaimer: The information contained in this section may have been updated after the patient was seen, as this information can be updated by other users. Medical History Psoriasis Pre-operative cardiovascular examination Abnormal electrocardiogram [ECG] [EKG] CAD, multiple vessel Nausea vomiting and diarrhea Abdominal pain Acute pancreatitis Acute lower respiratory infection Hoarseness Tinea corporis Cough Sinus congestion Shortness of breath Head congestion Breathlessness Cough Left anterior shoulder pain Vomiting Influenza A Abdominal pain Hyperlipidemia Hypertension IDDM (insulin dependent diabetes mellitus) Nasal drainage Erectile dysfunction Pre-ulcerative calluses Arthritis Sinusitis Splenomegaly Sepsis Colitis Left shoulder pain Edema Sinus mucosal thickening Diastasis recti Sunburn Deviated nasal septum Chronic sinusitis Incurvated nail COPD (chronic obstructive pulmonary disease) Shoulder pain, bilateral TMJ arthralgia Cervical paraspinous muscle spasm Pharyngitis Acute bronchitis Otitis externa Cerumen impaction Acute sinusitis Diabetic foot Callus of foot Muscle strain Rib pain on right side Bruising Pain of right upper arm Pain in right shoulder Neck Pain Callus History of diabetes mellitus, type II History of hyperlipidemia History of hypertension Cellulitis of left foot Carpal tunnel syndrome of right wrist Cellulitis VRE (vancomycin resistant enterococcus) culture positive Gas gangrene of foot Foot abscess, right Severe sepsis with acute organ dysfunction Cellulitis of right foot Diabetic ulcer of left foot Diabetic foot Type 2 diabetes mellitus with diabetic polyneuropathy, with long-term current use of insulin Amputation of toe of left foot Other acute osteomyelitis, right ankle and foot Diabetic ulcer of toe of right foot associated with type 2 diabetes mellitus, limited to breakdown of skin Diabetes mellitus Foot osteomyelitis, right Diabetic infection of right foot Diabetic ulcer of right foot Encounter for wound care Onychomycosis Nail dystrophy Overweight (BMI 25.0-29.9) Left foot pain Hammertoes of both feet Diabetes mellitus with diabetic neuropathy, with long-term current use of insulin Amputation of one or more toes Equinus contracture of left ankle Gangrene of toe of left foot Diabetic foot infection Cellulitis and abscess of foot Infected surgical wound Dyspnea Non-STEMI (non-ST elevated myocardial infarction) Surgical History History of nasal septoplasty Status post nasal septoplasty History of amputation of toe History of amputation of toe Hx of cataract surgery Status post foot surgery History of amputation of right great toe S/P CABG x 6 Family History Mother Heart attack Social History Smoking Status: Former smoker tobacco type: cigarettes packs per day: 3 pack-years: 75 years smoked: 25 smoking status stop date: 11/02/2001 how long ago did patient quit smokin second hand exposure: Yes alcohol intake: former substance use type: denies use current occupational status: disabled Travel in the last 8 weeks?: None household members: none housing: apartment caffeine: Yes Have you lived/traveled outside [place] in past 30 days?: No Contact w/someone who lives/traveled outside US past 30 days?: No Exposure to someone with infectious disease in past 14 days?: No Do you have a fever (greater than 100.4 F or 38 C)?: No Have you tested positive for COVID-19?: No Exposed to someone with COVID-19 in past 14 days?: No Do you have a sore throat?: No Do you have a cough?: No Do you have any weakness?: No Do you have any diarrhea?: No Are you experiencing any unusual bleeding?: No Do you have any muscle aches/pain?: No Do you have any abdominal pain?: No Are you experiencing loss of taste or smell?: No Other Medical History Have you received the Flu Vaccine for this season: No Have you received the Pneumonia Vaccine: Yes Meds Home Medications and Allergies Home Medications ?Medication ?Instructions ?Recorded ?Confirmed ?Type lancets 28 gauge (FreeStyle #100 ea 04/01/22 10/20/25 History Lancets) gabapentin 800 mg tablet 800 mg PO QID Pain 07/02/23 10/20/25 History blood sugar diagnostic (OneTouch #100 ea 11/18/23 10/20/25 Rx Ultra Test strips) blood-glucose meter (OneTouch #1 ea 11/18/23 10/20/25 Rx Ultra2 Meter) lancets 30 gauge (OneTouch #100 ea 11/18/23 10/20/25 Rx UltraSoft 2 Lancet) blood sugar diagnostic (True #100 ea 07/01/24 10/20/25 Rx Metrix Glucose Test Strip) blood-glucose meter (True Metrix #1 ea 07/01/24 10/20/25 Rx Air Glucose Meter) hydrocodone 10 mg-acetaminophen 1 tab PO QID 12/28/24 10/20/25 History 325 mg tablet ipratropium 0.5 mg-albuterol 3 mg 3 ml inhalation BID 06/15/25 10/20/25 History (2.5 mg base)/3 mL nebulization soln nystatin 100,000 unit/gram topical 1 applic topical DAILY #30 grams 06/22/25 10/20/25 Rx cream furosemide 40 mg tablet 40 mg PO DAILY 90 days #90 tabs 08/02/25 10/20/25 Rx lancets 33 gauge (TRUEplus Lancets) #100 ea 08/09/25 10/20/25 Rx pen needle, diabetic 31 gauge x #50 ea 08/09/25 10/20/25 Rx 3/16 (Easy Comfort Pen [place]) potassium chloride 20 mEq 20 meq PO DAILY 90 days #90 tabs 08/14/25 10/20/25 Rx tablet,extended release metformin 1,000 mg tablet See Rx Instructions .Route 08/21/25 10/20/25 Rx .COMPLEX #60 tabs atorvastatin 20 mg tablet (Lipitor) 20 mg PO DAILY #90 tabs 09/18/25 10/20/25 Rx omeprazole 20 mg capsule,delayed 20 mg PO DAILY 90 days #90 caps 09/18/25 10/20/25 Rx release clobetasol 0.05 % topical ointment 1 applic topical NEEDED PRN 09/26/25 10/20/25 History Skin Condition triamcinolone acetonide 0.1 % 1 applic topical NEEDED PRN 09/26/25 10/20/25 History topical cream Skin Condition Diabetic Shoes (DME) #1 ea 10/10/25 10/20/25 Rx lisinopril 5 mg tablet 5 mg PO DAILY 90 days #90 tabs 10/16/25 10/20/25 Rx loratadine 10 mg tablet 10 mg PO Q24H 30 days #30 tabs 10/16/25 10/20/25 Rx metoprolol tartrate 25 mg tablet 25 mg PO BID 90 days #180 tabs 10/16/25 10/20/25 Rx blood pressure test kit-wrist #1 ea 10/20/25 10/20/25 Rx ([place] Choice Wrist BP Monitor kit) insulin glargine U-300 conc 300 130 unit (0.4333 mL) SQ DAILY 30 10/20/25 10/20/25 Rx unit/mL (3 mL) subcutaneous pen days #12.999 mL (T[place]jeo Max U-300 SoloStar) tamsulosin 0.4 mg capsule 0.4 mg PO HS #30 caps 10/23/25 Rx albuterol sulfate 90 mcg/actuation 2 puff PO Q6H PRN for 10/27/25 Rx aerosol inhaler dyspnea/wheezing #8.5 grams amoxicillin 500 mg tablet 500 mg PO TID #30 tabs 10/28/25 Rx New Prescriptions to Start Prescriptions: Allergies Allergy/AdvReac Type Severity Reaction Status Date / Time No Known Allergies Allergy Verified 10/20/25 10:40 Exam Data for Last 24 hours Vital signs and Labs for Last 24 Hours: Temp Pulse Resp BP Pulse Ox O2 Del Method 97.9 F 79 20 146/59 H 100 Room Air 10/30/25 10:09 10/30/25 10:09 10/30/25 10:09 10/30/25 10:09 10/30/25 10:09 10/30/25 10:09 Constitutional Constitutional: no acute distress *Routine HEENT Exam Head: Present normocephalic Eye: Present EOMI and PERRL ENT: Present mucous membranes moist *Routine Neck Exam Neck: Present supple; Absent lymphadenopathy *Routine Respiratory Exam Respiratory: Present CTA bilaterally *Routine Cardiovascular Exam Cardiovascular: Present RRR *Routine Abdominal Exam Abdominal: Present soft and normoactive bowel sounds; Absent tenderness *Routine Rectal Exam Rectal:: deferred *Routine Genitalia Exam Genitalia:: deferred *Routine Extremities Exam Extremities: Absent cyanosis, clubbing or edema *Routine Skin Exam Skin: Present warm; Absent rash *Routine Neurological Exam Neurological: Present alert and oriented X3 Assessment and Plan *Assessment and plan (1) Gallstone pancreatitis: Status: Acute Category: Medical Code(s): K85.10 - Biliary acute pancreatitis without necrosis or infection Plan Plan for laparoscopic possible open cholecystectomy with possible intraoperative cholangiogram.
[2025-10-30] MEDS: LIDOCAINE 1% 20ML MDV 20 ML (11:10)
--- NOTE | 2025-10-30 13:04 | EXP.ANES.I ---
[facility] Anesthesia Record Part I Anesthesia Record I Intake, IV Amount: 800 Hydration: Adequate Estimated blood loss (mL): 25 Urine output (mL): 0 Blood Products used (#): none Blood Pressure: 125/59 SaO2: 93 Pulse Rate: 81 Airway Patency: Patent Respiratory Rate: 16 Temperature: 97.9 F Patient is:: Drowsy and Stable Stable to PACU at:: 13:02
[2025-10-30 13:07] LABS: POC Glucose,Bedside 79 gm/dL (70-110)
[2025-10-30 13:07] LABS: POC Glucose,Bedside 54 gm/dL (70-110)
[2025-10-30 13:12] LABS: POC Glucose,Bedside 84 gm/dL (70-110)
[2025-10-30] MEDS: HYDROMORPHONE 2MG/ML SYRINGE 0.5 MG IV (13:14)
--- NOTE | 2025-10-30 13:17 | P.OP_ITS ---
Date of procedure: 10/30/25 Pre-op Diagnosis:: History of biliary pancreatitis, symptomatic gallstones Post-op Diagnosis:: Same Procedure performed:: Laparoscopic cholecystectomy Surgeon:: Horacio Molina MD [employer] CONSULTANT:: Ranjith Ryan Anesthesia: GETA Estimated blood loss (mL): 150 Clinical Note:: Patient presents for cholecystectomy. Patient is a 70-year-old male from [place] with a history of COPD, insulin-dependent diabetes, coronary artery disease, hypertension, and chronic pain who presented to the emergency department on 06/15/2025 with multiple episodes of diarrhea, nausea, vomiting, and abdominal pain. Workup in the emergency department revealed a significantly elevated lipase of 40,000 with mild leukocytosis, hypomagnesemia, mildly elevated lactate. Diarrhea panel was positive for enteroaggregate of E. coli. He was admitted for inpatient management. He underwent a right upper quadrant ultrasound which revealed gallstones distention and gallbladder wall thickening with fatty liver, cirrhosis not excluded. He did undergo gastroenterology consultation as an inpatient. He did not require ERCP. He was managed without intervention and set up for outpatient follow-up for his gallbladder. Of note, blood work while inpatient revealed a platelet count of 81,000. His sodium was 135. Previous hepatitis C was negative. He states that he previously had a history of heavy alcohol consumption but has been abstinent for about 15 years. I had him undergo cardiology risk assessment. Also the patient had some significant skin reaction around the suprapubic location and umbilicus. Initially I thought that this was cutaneous candidiasis and treated this however it was refractory. It was then determined that this was likely psoriasis. He has reestablished care with a rental coordinator. I was hoping that this could be cleared prior to surgery. However it persists. He did have a recent gallbladder attack which was self-limited.. He had an echocardiogram on 08/01/2025. Cardiology risk assessment deemed him moderate nonmodifiable risk. Given the potential for recurrent biliary pancreatitis plan was made to proceed with cholecystectomy with possible intraoperative cholangiogram. . Operative findings:: He had significant nodular cirrhosis of the liver. Gallbladder was friable and somewhat inflamed and tense. There were apparent stones impacted in the neck of the gallbladder. There were several branching vessels around the gallbladder possibly consistent with portal hypertension which bled easily. Liver parenchyma was rather friable due to its cirrhosis and bled easily. . Operative note:: Consent was obtained and patient was taken to the operating room. He was positioned in supine position. General anesthesia was induced. Abdomen was prepped and draped in the standard surgical fashion. Given his psoriasis in the suprapubic location and in the umbilicus 5 mm incision was made above the umbilicus. While performing abdominal wall lift Veress needle was inserted and CO2 pneumoperitoneum was achieved to 15 mmHg. 5 mm trocar was inserted at the umbilicus. Intraperitoneal contents were visualized. She was positioned in reverse Trendelenburg and left side down. There were some omental adhesions in the left upper quadrant. Liver was noted to be consistent with significant nodular cirrhosis. A couple 5 mm trocars were inserted in the right upper abdomen. 11 mm trocar was inserted in the epigastrium. Gallbladder was grasped. The gallbladder was rather tense. There was unavoidable spillage of bile from the tense gallbladder and due to its friability. This was suctioned free and this was partially closed with an Endoloop. Gallbladder was retracted anteriorly. Blunt dissection was carried out near the neck of the gallbladder bluntly incising the visceral peritoneum. There were several branching vessels along the edges of the gallbladder possibly consistent with portal hypertension. This bled quite easily and required multiple placement of Surgicel for temporary hemostasis. Dissection was carried out down to near the kathleen hepatis as the gallbladder was somewhat distended and there appeared to be stones impacted in the neck of the gallbladder. Gallbladder was rather friable however and there was another unavoidable rent in the mid body of the gallbladder which was closed with a Hemoclip. Careful prolonged dissection was carried out ultimately identifying the cystic duct. Due to the fact that this was well into the kathleen hepatis and due to the friability and bleeding and due to the fact that the patient had a normal common duct on preoperative imaging and normal bilirubin and transaminases plan was made to forego intraoperative cholangiogram as the risk would outweigh any benefit. The cystic duct was isolated, multiply clipped, and sharply divided. Dissection was carried out of the gallbladder from the liver. Liver bed bled easily. Once again small pieces of Surgicel wer e placed for temporary hemostasis. Once the gallbladder was dissected free in its entirety from the liver it was placed within an Endo Catch retrieval device and removed from the peritoneal cavity via the epigastric trocar site. A couple of hemoclips were placed along the lateral edge of the gallbladder fossa where there was a bleeding vessel. The previously placed Surgicel was removed. Thorough irrigation and suctioning was performed evacuating blood clot. There was some oozing from the gallbladder fossa and use of laparoscopic electrocautery was used which resulted in good hemostasis. Additional irrigation and suctioning was performed until clear. Hakeem was deployed in the gallbladder fossa after the previously placed Surgicel was removed and after coagulation to ensure hemostasis. Trocars were then removed and CO2 pneumoperitoneum was evacuated. Anterior fascia at the epigastric trocar site was closed with a couple of 0 Vicryl sutures. Local anesthetic was infiltrated. Skin incision was closed with 4-0 Monocryl subcuticular fashion. Steri-Strips and dressings were applied. Plan will be for admission at least overnight for observation due to the patient's moderate risk of perioperative cardiovascular complications, intraoperative blood loss, cirrhosis. Condition: stable Disposition: PACU Complications:: None immediately apparent
[2025-10-30] MEDS: ONDANSETRON 4MG/2ML VIAL 4 MG IV (13:31)
--- NOTE | 2025-10-30 13:52 | EXP.MED.CON ---
History of Present Illness *Admission Date: 10/30/25 *Reason for visit:: post soila *History of present illness: 70-year-old male who presents for elective cholecystectomy due to cholelithiasis and recent pancreatitis in June. Medicine consulted after surgery to assist with comanagement of medical conditions. History obtained as per below from surgery H&P Patient presents for cholecystectomy. Patient is a 69-year-old male from [place] with a history of COPD, insulin-dependent diabetes, coronary artery disease, hypertension, and chronic pain who presented to the emergency department on 06/15/2025 with multiple episodes of diarrhea, nausea, vomiting, and abdominal pain. Workup in the emergency department revealed a significantly elevated lipase of 40,000 with mild leukocytosis, hypomagnesemia, mildly elevated lactate. Diarrhea panel was positive for enteroaggregate of E. coli. He was admitted for inpatient management. He underwent a right upper quadrant ultrasound which revealed gallstones distention and gallbladder wall thickening with fatty liver, cirrhosis not excluded. He did undergo gastroenterology consultation as an inpatient. He did not require ERCP. He was managed without intervention and set up for outpatient follow-up for his gallbladder. Of note, blood work while inpatient revealed a platelet count of 81,000. His sodium was 135. Previous hepatitis C was negative. He states that he previously had a history of heavy alcohol consumption but has been abstinent for about 15 years. I had him undergo cardiology risk assessment. Also the patient had some significant skin reaction around the suprapubic location and umbilicus. Initially I thought that this was cutaneous candidiasis and treated this however it was refractory. It was then determined that this was likely psoriasis. He has reestablished care with a industrial arts teacher. I was hoping that this could be cleared prior to surgery. However it persists. He did have a recent gallbladder attack which was self-limited a few days ago. He had an echocardiogram on 08/01/2025. [facility] Disclaimer: The information contained in this section may have been updated after the patient was seen, as this information can be updated by other users. Medical History Psoriasis Pre-operative cardiovascular examination Abnormal electrocardiogram [ECG] [EKG] CAD, multiple vessel Nausea vomiting and diarrhea Abdominal pain Acute pancreatitis Acute lower respiratory infection Hoarseness Tinea corporis Cough Sinus congestion Shortness of breath Head congestion Breathlessness Cough Left anterior shoulder pain Vomiting Influenza A Abdominal pain Hyperlipidemia Hypertension IDDM (insulin dependent diabetes mellitus) Nasal drainage Erectile dysfunction Pre-ulcerative calluses Arthritis Sinusitis Splenomegaly Sepsis Colitis Left shoulder pain Edema Sinus mucosal thickening Diastasis recti Sunburn Deviated nasal septum Chronic sinusitis Incurvated nail COPD (chronic obstructive pulmonary disease) Shoulder pain, bilateral TMJ arthralgia Cervical paraspinous muscle spasm Pharyngitis Acute bronchitis Otitis externa Cerumen impaction Acute sinusitis Diabetic foot Callus of foot Muscle strain Rib pain on right side Bruising Pain of right upper arm Pain in right shoulder Neck Pain Callus History of diabetes mellitus, type II History of hyperlipidemia History of hypertension Cellulitis of left foot Carpal tunnel syndrome of right wrist Cellulitis VRE (vancomycin resistant enterococcus) culture positive Gas gangrene of foot Foot abscess, right Severe sepsis with acute organ dysfunction Cellulitis of right foot Diabetic ulcer of left foot Diabetic foot Type 2 diabetes mellitus with diabetic polyneuropathy, with long-term current use of insulin Amputation of toe of left foot Other acute osteomyelitis, right ankle and foot Diabetic ulcer of toe of right foot associated with type 2 diabetes mellitus, limited to breakdown of skin Diabetes mellitus Foot osteomyelitis, right Diabetic infection of right foot Diabetic ulcer of right foot Encounter for wound care Onychomycosis Nail dystrophy Overweight (BMI 25.0-29.9) Left foot pain Hammertoes of both feet Diabetes mellitus with diabetic neuropathy, with long-term current use of insulin Amputation of one or more toes Equinus contracture of left ankle Gangrene of toe of left foot Diabetic foot infection Cellulitis and abscess of foot Infected surgical wound Dyspnea Non-STEMI (non-ST elevated myocardial infarction) Surgical History History of nasal septoplasty Status post nasal septoplasty History of amputation of toe History of amputation of toe Hx of cataract surgery Status post foot surgery History of amputation of right great toe S/P CABG x 6 Family History Mother Heart attack Social History Smoking Status: Former smoker tobacco type: cigarettes packs per day: 3 pack-years: 75 years smoked: 25 smoking status stop date: 11/02/2001 how long ago did patient quit smokin second hand exposure: Yes alcohol intake: former substance use type: denies use current occupational status: disabled Travel in the last 8 weeks?: None household members: none housing: apartment caffeine: Yes Have you lived/traveled outside [place] in past 30 days?: No Contact w/someone who lives/traveled outside US past 30 days?: No Exposure to someone with infectious disease in past 14 days?: No Do you have a fever (greater than 100.4 F or 38 C)?: No Have you tested positive for COVID-19?: No Exposed to someone with COVID-19 in past 14 days?: No Do you have a sore throat?: No Do you have a cough?: No Do you have any weakness?: No Are you experiencing any nausea/vomitting?: No Do you have any diarrhea?: No Are you experiencing any unusual bleeding?: No Do you have any muscle aches/pain?: No Do you have any abdominal pain?: No Are you experiencing loss of taste or smell?: No Review of Systems Review of Systems Review of systems (narrative): 14 point review of systems performed, pertinent positives and negatives as per HPI Exam Data for Last 24 hours Vital signs and Labs for Last 24 Hours: Temp Pulse Resp BP Pulse Ox O2 Del Method O2 Flow Rate 97.9 F 81 16 147/72 H 98 Nasal Cannula 2 10/30/25 13:05 10/30/25 13:42 10/30/25 13:42 10/30/25 13:42 10/30/25 13:42 10/30/25 13:42 10/30/25 13:42 Laboratory Results - last 24 hr 10/30/25 10:18: POC Glucose 54 L 10/30/25 11:08: POC Glucose 79 10/30/25 13:05: POC Glucose 84 I & O for Last 24 hours: Intake & Output 10/27/25 10/28/25 10/29/25 10/30/25 23:59 23:59 23:59 23:59 Intake Total 900 / 900 Balance 900 / 900 Constitutional Constitutional: no acute distress and cooperative *Routine HEENT Exam Head: Present normocephalic Eye: Present EOMI ENT: Present mucous membranes moist *Routine Neck Exam Neck: Present supple and full ROM; Absent JVD Routine Chest/Breast/Axilla Exam Comments: Well-healed midline scar *Routine Respiratory Exam Respiratory: Present CTA bilaterally, able to speak in complete sentences and symmetric chest movement; Absent respiratory distress or crackles *Routine Cardiovascular Exam Cardiovascular: Present RRR; Absent murmur *Routine Abdominal Exam Abdominal: Present soft, normoactive bowel sounds, tenderness (Tender over surgical sites/trocar insertion sites.) and hernia; Absent distended *Routine Rectal Exam Patient deferred: visual exam *Routine Exam Patient deferred: penile exam *Routine Extremities Exam Extremities: Present full ROM; Absent edema *Routine Skin Exam Skin: Present intact and dry; Absent rash *Routine Neurological Exam Neurological: Present alert, oriented X3 and normal speech Meds Home Medications and Allergies Home Medications ?Medication ?Instructions ?Recorded ?Confirmed ?Type lancets 28 gauge (FreeStyle #100 ea 04/01/22 10/20/25 History Lancets) gabapentin 800 mg tablet 800 mg PO QID 07/02/23 10/20/25 History blood sugar diagnostic (OneTouch #100 ea 11/18/23 10/20/25 Rx Ultra Test strips) blood-glucose meter (OneTouch #1 ea 11/18/23 10/20/25 Rx Ultra2 Meter) lancets 30 gauge (OneTouch #100 ea 11/18/23 10/20/25 Rx UltraSoft 2 Lancet) blood sugar diagnostic (True #100 ea 07/01/24 10/20/25 Rx Metrix Glucose Test Strip) blood-glucose meter (True Metrix #1 ea 07/01/24 10/20/25 Rx Air Glucose Meter) hydrocodone 10 mg-acetaminophen 1 tab PO QID 12/28/24 10/20/25 History 325 mg tablet furosemide 40 mg tablet 40 mg PO DAILY 90 days #90 tabs 08/02/25 10/20/25 Rx lancets 33 gauge (TRUEplus Lancets) #100 ea 08/09/25 10/20/25 Rx pen needle, diabetic 31 gauge x #50 ea 08/09/25 10/20/25 Rx 3/16 (Easy Comfort Pen [place]) potassium chloride 20 mEq 20 meq PO DAILY 90 days #90 tabs 08/14/25 10/20/25 Rx tablet,extended release atorvastatin 20 mg tablet (Lipitor) 20 mg PO DAILY #90 tabs 09/18/25 10/20/25 Rx omeprazole 20 mg capsule,delayed 20 mg PO DAILY 90 days #90 caps 09/18/25 10/20/25 Rx release Diabetic Shoes (DME) #1 ea 10/10/25 10/20/25 Rx lisinopril 5 mg tablet 5 mg PO DAILY 90 days #90 tabs 10/16/25 10/20/25 Rx metoprolol tartrate 25 mg tablet 25 mg PO BID 90 days #180 tabs 10/16/25 10/20/25 Rx blood pressure test kit-wrist #1 ea 10/20/25 10/20/25 Rx ([place] Choice Wrist BP Monitor kit) insulin glargine U-300 conc 300 130 unit (0.4333 mL) SQ DAILY 30 10/20/25 10/20/25 Rx unit/mL (3 mL) subcutaneous pen days #12.999 mL ([place] Max U-300 SoloStar) tamsulosin 0.4 mg capsule 0.4 mg PO HS #30 caps 10/23/25 10/30/25 Rx amoxicillin 500 mg tablet 500 mg PO TID #30 tabs 10/28/25 10/30/25 Rx albuterol sulfate 90 mcg/actuation 2 puff PO Q6HP PRN Shortness Of 10/30/25 10/30/25 History aerosol inhaler Breath Or Wheezing loratadine 10 mg tablet 10 mg PO DAILY 10/30/25 10/30/25 History metformin 1,000 mg tablet 1,000 mg PO BID 10/30/25 10/30/25 History New Prescriptions to Start Prescriptions: Allergies Allergy/AdvReac Type Severity Reaction Status Date / Time No Known Allergies Allergy Verified 10/20/25 10:40 Results Labs Labs: Abnormal lab results 10/30/25 Range/Units 10:18 POC Glucose 54 L (70-110) gm/dL All other labs normal. Assessment and Plan *Assessment and plan (1) Hypertension: Status: Acute Qualifiers: Hypertension type: primary hypertension Qualified Code(s): I10 - Essential (primary) hypertension Category: Medical Code(s): I10 - Essential (primary) hypertension (2) Cholecystitis: Status: Acute Category: Medical Code(s): K81.9 - Cholecystitis, unspecified (3) IDDM (insulin dependent diabetes mellitus): Status: Acute Category: Medical Code(s): E11.9 - Type 2 diabetes mellitus without complications; Z79.4 - FDC (current) use of insulin (4) Hyperlipidemia: Status: Acute Qualifiers: Hyperlipidemia type: mixed hyperlipidemia Qualified Code(s): E78.2 - Mixed hyperlipidemia Category: Medical Code(s): E78.5 - Hyperlipidemia, unspecified (5) Back pain with radiculopathy: Status: Acute Category: Medical Code(s): M54.10 - Radiculopathy, site unspecified (6) COPD (chronic obstructive pulmonary disease): Status: Acute Qualifiers: COPD type: unspecified COPD Qualified Code(s): J44.9 - Chronic obstructive pulmonary disease, unspecified Category: Medical Code(s): J44.9 - Chronic obstructive pulmonary disease, unspecified (7) Hx of CABG: Status: Acute Category: Surgical Code(s): Z95.1 - Presence of aortocoronary bypass graft (8) Choledocholithiasis: Status: Chronic Category: Medical Code(s): K80.50 - Calculus of bile duct without cholangitis or cholecystitis without obstruction (9) Status post cholecystectomy: Status: Acute Category: Surgical Code(s): Z90.49 - Acquired absence of other specified parts of digestive tract Plan Mr. Eaton is a 70-year-old male who presented for elective cholecystectomy. Patient was admitted in June with acute pancreatitis secondary to cholecystitis/choledocholithiasis. He has been following with surgery as an outpatient. Brought in today for elective cholecystectomy. Tolerated procedure well however had bleeding in gallbladder bed due to nodular appearing liver consistent with cirrhosis. Discussed case with surgeon, planning to admit overnight for observation. Consulting medicine for medical management of patient's comorbidities and assistance with care. Patient stable on room air. Sitting at bedside. Tolerating sandwich. Has some pain at surgical sites. In no acute distress. Problems addressed as follows: Status post cholecystectomy due to cholelithiasis and history of gallstone pancreatitis - Tolerated procedure well. Will advance diet per surgery recommendations. Continue home regimen with hydrocodone 10 mg every 6 hours as needed and gabapentin 800 mg 4 times a day - Repeat CBC, CMP, magnesium ordered for the morning - Preoperative labs obtained 10 days ago with white count of 4, hemoglobin 10. Kidney function normal with BUN 15, creatinine 0.9. Bilirubin 0.7, AST 54, ALT 39 and alk phos 142. - Reviewed previous imaging showing gallbladder thickening and gallstones. Surgical sites clean dry and intact #Diabetes mellitus, insulin-dependent ? A1c on 10/17 of 7.6. Fairly well-controlled. Continue fingersticks ACHS and sliding scale insulin. Resume insulin glargine at 100 units in the morning, decreased from his normal home regimen of 130. #Hypertension: Continue lisinopril 5 mg daily and metoprolol 25 mg twice daily. Holding Lasix pending improved p.o. intake #Hyperlipidemia: Holding Lipitor due to surgery, resume at discharge #Diabetic neuropathy: Continue gabapentin 800 mg 4 times daily for pain #COPD: DuoNebs every 6 hours as needed. #BPH: Continue tamsulosin 0.4 mg nightly Full code Regular diet
--- NOTE | 2025-10-30 14:04 | HMH.PHAINT1 ---
Pharmacy Intervention Comments: MEDICATION RECONCILIATION COMPLETED ON PATIENT USING EXTERNAL FILL HISTORY FROM PHARMACY. -MARCELO CHING, RAVEND
[2025-10-30] MEDS: GABAPENTIN 800MG TABLET 800 MG PO ×2 (17:28→20:07)
[2025-10-30] MEDS: humaLOG 100 UNITS/ML 10ML VIAL (SSI) SUBCUT ×2 (17:30→20:07)
[2025-10-30 17:38] LABS: POC Glucose,Bedside 198 gm/dL (70-110)
[2025-10-30 17:57] LABS: Hematocrit 35.3 % (42.0-52.0); Hemoglobin 10.9 g/dL (14.1-18.0); Immature Granulocytes % 0.5 %; Mean Corpuscular HGB Conc 30.9 g/dL (31.8-35.4); Mean Corpuscular Hemoglobin 26.9 pg (27.0-31.2); Mean Corpuscular Volume 87.2 fl (80-94); Nucleated Red Blood Cells % 0 %; Platelet Count 110 K/mm3 (142-424); Red Blood Count 4.05 M/mm3 (4.60-6.20); Red Cell Distribution Width-SD 48.1 fL; White Blood Count 7.4 K/mm3 (4.8-10.8)
[2025-10-30 18:41] LABS: Anisocytosis 1+; Macrocytosis 1+; Microcytosis 1+; Ovalocytes 1+; Poikilocytosis 1+; Polychromasia 1+; Target Cells 1+; Tear Drop Cells 1+; Total Cells Counted 100
[2025-10-30 18:42] LABS: Burr Cells 1+; Giant Platelets 1+
[2025-10-30] MEDS: METOPROLOL TARTRATE 25MG TABLET 25 MG PO (20:07)
[2025-10-30] MEDS: TAMSULOSIN 0.4MG CAPSULE 0.4 MG PO (20:07)
[2025-10-30] MEDS: PANTOPRAZOLE 40MG TABLET 40 MG PO (20:07)
[2025-10-30] MEDS: HYDROCODONE 10MG/APAP 325MG TAB 1 TAB PO (20:42)
--- NOTE | 2025-10-30 21:35 | PC.NURSE ---
Patient was given a diet pepsi at 2001 (222ml)
[2025-10-30 21:39] LABS: POC Glucose,Bedside 322 gm/dL (70-110)
[2025-10-31] VITALS: BP 106/56; PULSE 74; RESP 16; TEMP 36.7; O2SAT 93
[2025-10-31] MEDS: LACTATED RINGERS 1000ML 1,000 ML 100 ML IV (03:17)
--- NOTE | 2025-10-31 03:49 | PC.NURSE ---
Pt is A&OX4 and has tolerated room air. He has complained of abdominal pain once and was medicated per DEC. He has tolerated diet well with no complained of N/V. Receiving IV abx. No complaints at this time, call light within reach.
[2025-10-31 04:00] VITALS: BP 143/78; PULSE 76; RESP 16; TEMP 36.5; O2SAT 95; BMI 27.3
[2025-10-31] MEDS: humaLOG 100 UNITS/ML 10ML VIAL (SSI) SUBCUT ×2 (05:59→11:13)
[2025-10-31 06:12] LABS: Hematocrit 31.7 % (42.0-52.0); Immature Granulocytes % 0.4 %; Mean Corpuscular HGB Conc 29.3 g/dL (31.8-35.4); Mean Corpuscular Hemoglobin 25.5 pg (27.0-31.2); Mean Corpuscular Volume 86.8 fl (80-94); Nucleated Red Blood Cells % 0 %; Platelet Count 112 K/mm3 (142-424); Red Blood Count 3.65 M/mm3 (4.60-6.20); Red Cell Distribution Width-SD 48.2 fL; White Blood Count 7.9 K/mm3 (4.8-10.8)
[2025-10-31] MEDS: HYDROCODONE 10MG/APAP 325MG TAB 1 TAB PO ×2 (06:16→12:26)
[2025-10-31 06:20] LABS: POC Glucose,Bedside 237 gm/dL (70-110)
[2025-10-31 06:25] LABS: Chloride 103 mmol/L (98-107)
[2025-10-31 06:26] LABS: Albumin Level 3.4 g/dl (3.5-5.0); Potassium 5.6 mmoL/L (3.5-5.1); Sodium 135 mmol/L (136-145)
[2025-10-31 06:28] LABS: Alanine Aminotransferase 31 U/L (12-78); Anion Gap 14.6 mEq/L (5-15); Aspartate Amino Transferase 47 U/L (17-59); Blood Urea Nitrogen 25 mg/dl (9-20); Carbon Dioxide 23 mmol/L (22.0-30.0); Creatinine Clearance Estimated 62 mL/min (50-200); Creatinine,Serum 1.30 mg/dl (0.66-1.25); Estimated Glomerular Filt Rate 54 ml/min (>60); GFR (African American) 66 ML/MIN (>60)
[2025-10-31 06:29] LABS: Albumin/Globulin Ratio 1.1 (1.1-1.8); Alkaline Phosphatase 119 U/L (38-126); Bilirubin,Total 0.4 mg/dl (0.2-1.3); Calcium 8.2 mg/dl (8.4-10.2); Globulin 3.2 g/dL (1.3-3.2); Glucose 226 mg/dl (74-100); Total Protein,Serum 6.6 g/dl (6.3-8.2)
--- NOTE | 2025-10-31 07:02 | EXP.ANES.II ---
[facility] Anesthesia Record Part II Anesthesia Record Part II Discharge Time: 13:52 Destination: Medical Surgical Department PACU nurse assessment reviewed?: Yes Patient Condition:: Good Anesthesia Complications:: None Swallowing reflex intact?: Yes Airway Patency: Patent Cyanosis?: No Blood Pressure: 141/58 SaO2: 98 Respiratory Rate: 16 Pulse Rate: 82 Temperature: 98.5 F Mental Status: Alert & Oriented Pain level:: 2 Nausea and/or vomitting:: None Intake, IV Amount: 0 Hydration: Adequate
[2025-10-31 07:04] VITALS: BP 141/58; PULSE 82; RESP 16; TEMP 36.9; O2SAT 98
--- NOTE | 2025-10-31 07:35 | P.PN_ITS ---
Subjective Narrative: Patient overall feels good other than some minor soreness. Tolerating full liquids. Exam Data for Last 24 hours Vital signs and Labs for Last 24 Hours: Temp Pulse Resp BP Pulse Ox O2 Del Method O2 Flow Rate 97.7 F 76 16 143/78 H 95 Room Air 1 10/31/25 04:00 10/31/25 04:00 10/31/25 07:04 10/31/25 04:00 10/31/25 04:00 10/31/25 06:34 10/30/25 13:52 Laboratory Results - last 24 hr 10/30/25 10:18: POC Glucose 54 L 10/30/25 11:08: POC Glucose 79 10/30/25 13:05: POC Glucose 84 10/30/25 17:27: POC Glucose 198 H 10/30/25 18:00: WBC 7.4, RBC 4.05 L, Hgb 10.9 L, Hct 35.3 L, MCV 87.2, MCH 26.9 L, MCHC 30.9 L, RDW 15.0, Plt Count 110 L, MPV 10.0, Neut % (Auto) 91.7 H, Lymph % (Auto) 4.9 L, [place] % (Auto) 2.7, Eos % (Auto) 0.1, Baso % (Auto) 0.1, Neut # (Auto) 6.8, Lymph # (Auto) 0.[address] L, [place] # (Auto) 0.2, Eos # (Auto) 0.0, Baso # (Auto) 0.0, Total Counted 100, Neutrophils % (Manual) 94 H, Lymphocytes % (Manual) 5 L, Monocytes % (Manual) 1 L, Platelet Estimate Normal, Giant Platelets 1+, Polychromasia 1+, Poikilocytosis 1+, Anisocytosis 1+, Microcytosis 1+, Macrocytosis 1+, Target Cells 1+, Tear Drop Cells 1+, Ovalocytes 1+, [place] Cells 1+ 10/30/25 20:04: POC Glucose 322 H* 10/31/25 05:57: POC Glucose 237 H 10/31/25 05:58: WBC 7.9, RBC 3.65 L, Hct 31.7 L, MCV 86.8, MCH 25.5 L, MCHC 29.3 L, RDW 15.1, Plt Count 112 L, MPV 10.3, Neut % (Auto) 81.5 H, Lymph % (Auto) 9.1 L, [place] % (Auto) 8.6, Eos % (Auto) 0.1, Baso % (Auto) 0.3, Neut # (Auto) 6.5, Lymph # (Auto) 0.7, [place] # (Auto) 0.7, Eos # (Auto) 0.0, Baso # (Auto) 0.0, Sodium 135 L, Potassium 5.6 H, Chloride 103, Carbon Dioxide 23, Anion Gap 14.6, BUN 25 H, Creatinine 1.30 H, Estimated Creat Clear 62, Estimated GFR 54 L, Est GFR ( Amer) 66, Glucose 226 H, Calcium 8.2 L, Total Bilirubin 0.4, AST 47, ALT 31, Alkaline Phosphatase 119, Total Protein 6.6, Albumin 3.4 L, Globulin 3.2, Albumin/Globulin Ratio 1.1 I & O for Last 24 hours: Intake & Output 10/28/25 10/29/25 10/30/25 10/31/25 11:59 11:59 11:59 11:59 Intake Total 100 / 100 1762 / 1762 Output Total 600 / 600 Balance 100 / 100 1162 / 1162 Weight 185 lb 1.6 oz *Routine Abdominal Exam Abdominal: Present distended Progress Note: A&P Assessment and plan (1) Hypertension: Status: Acute (2) Cholecystitis: Status: Acute (3) IDDM (insulin dependent diabetes mellitus): Status: Acute (4) Hyperlipidemia: Status: Acute (5) Back pain with radiculopathy: Status: Acute (6) COPD (chronic obstructive pulmonary disease): Status: Acute (7) Hx of CABG: Status: Acute (8) Choledocholithiasis: Status: Chronic (9) Status post cholecystectomy: Status: Acute Assessment and Plan Assessment and Plan for All Diagnoses:: Hemoglobin is stable. Platelet count reasonable. Liver function test normal. However BUN and creatinine is somewhat elevated and potassium is 5.6.
[2025-10-31 07:42] LABS: Hemoglobin 9.7 g/dL (14.1-18.0)
[2025-10-31 07:59] VITALS: BP 139/64; PULSE 91; RESP 19; TEMP 36.6; O2SAT 98
[2025-10-31] MEDS: LISINOPRIL 5MG TABLET 5 MG PO (08:20)
[2025-10-31] MEDS: METOPROLOL TARTRATE 25MG TABLET 25 MG PO (08:20)
[2025-10-31] MEDS: GABAPENTIN 800MG TABLET 800 MG PO ×2 (08:20→12:26)
[2025-10-31] MEDS: INSULIN GLARGINE 100 UNITS/ML 3ML FLEXPEN 100 UNIT SUBCUT (08:20)
[2025-10-31 11:09] LABS: Chloride 99 mmol/L (98-107); Potassium 5.3 mmoL/L (3.5-5.1); Sodium 131 mmol/L (136-145)
[2025-10-31 11:12] LABS: Anion Gap 13.3 mEq/L (5-15); Blood Urea Nitrogen 24 mg/dl (9-20); Calcium 8.5 mg/dl (8.4-10.2); Carbon Dioxide 24 mmol/L (22.0-30.0); Creatinine Clearance Estimated 73 mL/min (50-200); Creatinine,Serum 1.10 mg/dl (0.66-1.25); Estimated Glomerular Filt Rate 66 ml/min (>60); GFR (African American) 80 ML/MIN (>60); Glucose 299 mg/dl (74-100)
[2025-10-31 11:31] VITALS: BP 114/59; PULSE 69; RESP 18; TEMP 36.6; O2SAT 100
--- NOTE | 2025-10-31 11:59 | EXP.DC.SUM ---
General Admission date:: 10/30/25 Discharge date: 10/31/25 HPI HPI HPI: Patient presented for cholecystectomy. Patient is a 69-year-old male from [place] with a history of COPD, insulin-dependent diabetes, coronary artery disease, hypertension, and chronic pain who presented to the emergency department on 06/15/2025 with multiple episodes of diarrhea, nausea, vomiting, and abdominal pain. Workup in the emergency department revealed a significantly elevated lipase of 40,000 with mild leukocytosis, hypomagnesemia, mildly elevated lactate. Diarrhea panel was positive for enteroaggregate of E. coli. He was admitted for inpatient management. He underwent a right upper quadrant ultrasound which revealed gallstones distention and gallbladder wall thickening with fatty liver, cirrhosis not excluded. He did undergo gastroenterology consultation as an inpatient. He did not require ERCP. He was managed without intervention and set up for outpatient follow-up for his gallbladder. Of note, blood work while inpatient revealed a platelet count of 81,000. His sodium was 135. Previous hepatitis C was negative. He states that he previously had a history of heavy alcohol consumption but has been abstinent for about 15 years. I had him undergo cardiology risk assessment. Also the patient had some significant skin reaction around the suprapubic location and umbilicus. Initially I thought that this was cutaneous candidiasis and treated this however it was refractory. It was then determined that this was likely psoriasis. He has reestablished care with a management lead. I was hoping that this could be cleared prior to surgery. However it persists. He did have a recent gallbladder attack which was self-limited a few days ago. He had an echocardiogram on 08/01/2025. . Hospital Course Hospital Course Hospital Course: Patient was taken to the operating room and underwent laparoscopic cholecystectomy. He was found to have significant nodular cirrhosis of the liver. Gallbladder was friable and somewhat inflamed and tense. There were apparent stones impacted in the neck of the gallbladder. There were several branching vessels around the gallbladder which bled easily and the liver parenchyma was rather friable due to the cirrhosis and bled easily. He had a total of approximately 150 cc blood loss. Given the difficulty in dissection and findings of liver cirrhosis plan was for admission at least overnight for observation due to the patient's moderate risk of perioperative cardiovascular complications, intraoperative blood loss, and cirrhosis. He was given a full liquid diet. He tolerated this without difficulty. The following morning he felt well other than some minor right sided abdominal soreness. Tolerating full liquid diet. His preoperative hemoglobin was 10.5. In the evening of the surgery it was 10.9 and the following morning 9.7 within reasonable limits given the intraoperative findings. Liver function test were normal. He did have slight elevation of BUN and creatinine at 25 and 1.3 and had a potassium of 5.6 on labs checked the morning postoperatively. Therefore he remained in inpatient for interval repeat BMP several hours later which revealed improving potassium to 5.3 and BUN and creatinine have 24 and 1.1. Arrangements were made for discharge home at this time with early outpatient follow-up with his primary care provider for possible repeat blood work and early outpatient surgery follow-up. . Exam Data for Last 24 hours Vital signs and Labs for Last 24 Hours: Temp Pulse Resp BP Pulse Ox O2 Del Method O2 Flow Rate 97.9 F 69 18 114/59 L 100 Room Air 1 10/31/25 11:31 10/31/25 11:31 10/31/25 11:31 10/31/25 11:31 10/31/25 11:31 10/31/25 11:31 10/30/25 13:52 Laboratory Results - last 24 hr 10/30/25 10:18: POC Glucose 54 L 10/30/25 11:08: POC Glucose 79 10/30/25 13:05: POC Glucose 84 10/30/25 17:27: POC Glucose 198 H 10/30/25 18:00: WBC 7.4, RBC 4.05 L, Hgb 10.9 L, Hct 35.3 L, MCV 87.2, MCH 26.9 L, MCHC 30.9 L, RDW 15.0, Plt Count 110 L, MPV 10.0, Neut % (Auto) 91.7 H, Lymph % (Auto) 4.9 L, [place] % (Auto) 2.7, Eos % (Auto) 0.1, Baso % (Auto) 0.1, Neut # (Auto) 6.8, Lymph # (Auto) 0.4 L, [place] # (Auto) 0.2, Eos # (Auto) 0.0, Baso # (Auto) 0.0, Total Counted 100, Neutrophils % (Manual) 94 H, Lymphocytes % (Manual) 5 L, Monocytes % (Manual) 1 L, Platelet Estimate Normal, Giant Platelets 1+, Polychromasia 1+, Poikilocytosis 1+, Anisocytosis 1+, Microcytosis 1+, Macrocytosis 1+, Target Cells 1+, Tear Drop Cells 1+, Ovalocytes 1+, Art Cells 1+ 10/30/25 20:04: POC Glucose 322 H* 10/31/25 05:57: POC Glucose 237 H 10/31/25 05:58: WBC 7.9, RBC 3.65 L, Hgb 9.7 L D, Hct 31.7 L, MCV 86.8, MCH 25.5 L, MCHC 29.3 L, RDW 15.1, Plt Count 112 L, MPV 10.3, Neut % (Auto) 81.5 H, Lymph % (Auto) 9.1 L, [place] % (Auto) 8.6, Eos % (Auto) 0.1, Baso % (Auto) 0.3, Neut # (Auto) 6.5, Lymph # (Auto) 0.7, [place] # (Auto) 0.7, Eos # (Auto) 0.0, Baso # (Auto) 0.0, Sodium 135 L, Potassium 5.6 H, Chloride 103, Carbon Dioxide 23, Anion Gap 14.6, BUN 25 H, Creatinine 1.30 H, Estimated Creat Clear 62, Estimated GFR 54 L, Est GFR ( Amer) 66, Glucose 226 H, Calcium 8.2 L, Total Bilirubin 0.4, AST 47, ALT 31, Alkaline Phosphatase 119, Total Protein 6.6, Albumin 3.4 L, Globulin 3.2, Albumin/Globulin Ratio 1.1 10/31/25 10:57: Sodium 131 L, Potassium 5.3 H, Chloride 99, Carbon Dioxide 24, Anion Gap 13.3, BUN 24 H, Creatinine 1.10, Estimated Creat Clear 73, Estimated GFR 66, Est GFR ( Amer) 80 D, Glucose 299 H D, Calcium 8.5 I & O for Last 24 hours: Intake & Output 10/28/25 10/29/25 10/30/25 10/31/25 11:59 11:59 11:59 11:59 Intake Total 100 / 100 2362 / 2362 Output Total 850 / 850 Balance 100 100 1512 / 1512 Weight 185 lb 1.6 oz Results Data Completed and Pending Labs on day of discharge: Labs from last 24 hours 10/31/25 10/31/25 10/31/25 10:57 05:58 05:57 WBC 7.9 RBC 3.65 L Hgb 9.7 L D Hct 31.7 L MCV 86.8 MCH 25.5 L MCHC 29.3 L RDW 15.1 Plt Count 112 L MPV 10.3 Neut % (Auto) 81.5 H Lymph % (Auto) 9.1 L [place] % (Auto) 8.6 Eos % (Auto) 0.1 Baso % (Auto) 0.3 Neut # (Auto) 6.5 Lymph # (Auto) 0.7 [place] # (Auto) 0.7 Eos # (Auto) 0.0 Baso # (Auto) 0.0 Total Counted Neutrophils % (Manual) Lymphocytes % (Manual) Monocytes % (Manual) Platelet Estimate Giant Platelets Polychromasia Poikilocytosis Anisocytosis Microcytosis Macrocytosis Target Cells Tear Drop Cells Ovalocytes Art Cells Sodium 131 L 135 L Potassium 5.3 H 5.6 H Chloride 99 103 Carbon Dioxide 24 23 Anion Gap 13.3 14.6 BUN 24 H 25 H Creatinine 1.10 1.30 H Estimated Creat Clear 73 62 Estimated GFR 66 54 L Est GFR ( Amer) 80 D 66 Glucose 299 H D 226 H POC Glucose 237 H Calcium 8.5 8.2 L Total Bilirubin 0.4 AST 47 ALT 31 Alkaline Phosphatase 119 Total Protein 6.6 Albumin 3.4 L Globulin 3.2 Albumin/Globulin Ratio 1.1 10/30/25 10/30/25 10/30/25 20:04 18:00 17:27 WBC 7.4 RBC 4.05 L Hgb 10.9 L Hct 35.3 L MCV 87.2 MCH 26.9 L MCHC 30.9 L RDW 15.0 Plt Count 110 L MPV 10.0 Neut % (Auto) 91.7 H Lymph % (Auto) 4.9 L [place] % (Auto) 2.7 Eos % (Auto) 0.1 Baso % (Auto) 0.1 Neut # (Auto) 6.8 Lymph # (Auto) 0.4 L [place] # (Auto) 0.2 Eos # (Auto) 0.0 Baso # (Auto) 0.0 Total Counted 100 Neutrophils % (Manual) 94 H Lymphocytes % (Manual) 5 L Monocytes % (Manual) 1 L Platelet Estimate Normal Giant Platelets 1+ Polychromasia 1+ Poikilocytosis 1+ Anisocytosis 1+ Microcytosis 1+ Macrocytosis 1+ Target Cells 1+ Tear Drop Cells 1+ Ovalocytes 1+ Art Cells 1+ Sodium Potassium Chloride Carbon Dioxide Anion Gap BUN Creatinine Estimated Creat Clear Estimated GFR Est GFR ( Amer) Glucose POC Glucose 322 H* 198 H Calcium Total Bilirubin AST ALT Alkaline Phosphatase Total Protein Albumin Globulin Albumin/Globulin Ratio 10/30/25 10/30/25 10/30/25 13:05 11:08 10:18 WBC RBC Hgb Hct MCV MCH MCHC RDW Plt Count MPV Neut % (Auto) Lymph % (Auto) [place] % (Auto) Eos % (Auto) Baso % (Auto) Neut # (Auto) Lymph # (Auto) [place] # (Auto) Eos # (Auto) Baso # (Auto) Total Counted Neutrophils % (Manual) Lymphocytes % (Manual) Monocytes % (Manual) Platelet Estimate Giant Platelets Polychromasia Poikilocytosis Anisocytosis Microcytosis Macrocytosis Target Cells Tear Drop Cells Ovalocytes [place] Cells Sodium Potassium Chloride Carbon Dioxide Anion Gap BUN Creatinine Estimated Creat Clear Estimated GFR Est GFR ( Amer) Glucose POC Glucose 84 79 54 L Calcium Total Bilirubin AST ALT Alkaline Phosphatase Total Protein Albumin Globulin Albumin/Globulin Ratio DS: Diagnosis Discharge Diagnosis (1) Hypertension: Status: Acute Code(s): I10 - Essential (primary) hypertension Qualifiers: Hypertension type: primary hypertension Qualified Code(s): I10 - Essential (primary) hypertension (2) Cholecystitis: Status: Acute Code(s): K81.9 - Cholecystitis, unspecified (3) IDDM (insulin dependent diabetes mellitus): Status: Acute Code(s): E11.9 - Type 2 diabetes mellitus without complications; 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.4 - 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 of insulin (4) Hyperlipidemia: Status: Acute Code(s): E78.5 - Hyperlipidemia, unspecified Qualifiers: Hyperlipidemia type: mixed hyperlipidemia Qualified Code(s): E78.2 - Mixed hyperlipidemia (5) Back pain with radiculopathy: Status: Acute Code(s): M54.10 - Radiculopathy, site unspecified (6) COPD (chronic obstructive pulmonary disease): Status: Acute Code(s): J44.9 - Chronic obstructive pulmonary disease, unspecified Qualifiers: COPD type: unspecified COPD Qualified Code(s): J44.9 - Chronic obstructive pulmonary disease, unspecified (7) Hx of CABG: Status: Acute Code(s): Z95.1 - Presence of aortocoronary bypass graft (8) Choledocholithiasis: Status: Chronic Code(s): K80.50 - Calculus of bile duct without cholangitis or cholecystitis without obstruction (9) Status post cholecystectomy: Status: Acute Code(s): Z90.49 - Acquired absence of other specified parts of digestive tract Meds Home Medications and Allergies Home Medications ?Medication ?Instructions ?Recorded ?Confirmed ?Type lancets 28 gauge (FreeStyle #100 ea 04/01/22 10/20/25 History Lancets) gabapentin 800 mg tablet 800 mg PO QID 07/02/23 10/20/25 History blood sugar diagnostic (OneTouch #100 ea 11/18/23 10/20/25 Rx Ultra Test strips) blood-glucose meter (OneTouch #1 ea 11/18/23 10/20/25 Rx Ultra2 Meter) lancets 30 gauge (OneTouch #100 ea 11/18/23 10/20/25 Rx UltraSoft 2 Lancet) blood sugar diagnostic (True #100 ea 07/01/24 10/20/25 Rx Metrix Glucose Test Strip) blood-glucose meter (True Metrix #1 ea 07/01/24 10/20/25 Rx Air Glucose Meter) hydrocodone 10 mg-acetaminophen 1 tab PO QID 12/28/24 10/20/25 History 325 mg tablet furosemide 40 mg tablet 40 mg PO DAILY 90 days #90 tabs 08/02/25 10/20/25 Rx lancets 33 gauge (TRUEplus Lancets) #100 ea 08/09/25 10/20/25 Rx pen needle, diabetic 31 gauge x #50 ea 08/09/25 10/20/25 Rx 3/16 (Easy Comfort Pen [place]) potassium chloride 20 mEq 20 meq PO DAILY 90 days #90 tabs 08/14/25 10/20/25 Rx tablet,extended release atorvastatin 20 mg tablet (Lipitor) 20 mg PO DAILY #90 tabs 09/18/25 10/20/25 Rx omeprazole 20 mg capsule,delayed 20 mg PO DAILY 90 days #90 caps 09/18/25 10/20/25 Rx release Diabetic Shoes (DME) #1 ea 10/10/25 10/20/25 Rx lisinopril 5 mg tablet 5 mg PO DAILY 90 days #90 tabs 10/16/25 10/20/25 Rx metoprolol tartrate 25 mg tablet 25 mg PO BID 90 days #180 tabs 10/16/25 10/20/25 Rx blood pressure test kit-wrist #1 ea 10/20/25 10/20/25 Rx (Orting Choice Wrist BP Monitor kit) insulin glargine U-300 conc 300 130 unit (0.4333 mL) SQ DAILY 30 10/20/25 10/20/25 Rx unit/mL (3 mL) subcutaneous pen days #12.999 mL (Toujeo Max U-300 SoloStar) tamsulosin 0.4 mg capsule 0.4 mg PO HS #30 caps 10/23/25 10/30/25 Rx amoxicillin 500 mg tablet 500 mg PO TID #30 tabs 10/28/25 10/30/25 Rx albuterol sulfate 90 mcg/actuation 2 puff PO Q6HP PRN Shortness Of 10/30/25 10/30/25 History aerosol inhaler Breath Or Wheezing loratadine 10 mg tablet 10 mg PO DAILY 10/30/25 10/30/25 History metformin 1,000 mg tablet 1,000 mg PO BID 10/30/25 10/30/25 History New Prescriptions to Start Prescriptions: Allergies Allergy/AdvReac Type Severity Reaction Status Date / Time No Known Allergies Allergy Verified 10/20/25 10:40 Discharge Plan Follow up Plan Follow up with: Horacio Molina MD [Staff Physician, General Surgery] - 11/16/25 Silvio Mccain MD [Primary Care Provider, Internal Medicine] - 11/03/25 Prescriptions/Medication Reconciliation: No Action (DME) lancets [FreeStyle Lancets] 28 gauge misc See Rx Instructions .ROUTE .MEDSUPPLY Qty: 100 Rx Instructions: As directed hydrocodone-acetaminophen 10-325 mg tablet 1 tab PO QID (DME) Diabetic Shoes (DME) Misc See Rx Instructions .ROUTE .MEDSUPPLY Qty: 1 0RF Rx Instructions: As directed (DME) blood pressure test kit-wrist [Orting Choice Wrist BP Monitor] Kit See Rx Instructions .Route Qty: 1 0RF Rx Instructions: As directed (DME) blood-glucose meter [OneTouch Ultra2 Meter] Misc See Rx Instructions .Route Qty: 1 0RF Rx Instructions: As directed (DME) OneTouch Ultra Test Strip See Rx Instructions .Route Qty: 100 2RF Rx Instructions: As directed (DME) lancets [OneTouch UltraSoft 2 Lancet] 30 gauge misc See Rx Instructions .Route Qty: 100 2RF Rx Instructions: As directed (DME) blood-glucose meter [True Metrix Air Glucose Meter] Misc See Rx Instructions .Route Qty: 1 0RF Rx Instructions: As directed (DME) True Metrix Glucose Test Strip Strip See Rx Instructions .Route Qty: 100 3RF Rx Instructions: Test glucose TID furosemide 40 mg tablet 40 mg PO DAILY 90 Days Qty: 90 0RF (DME) lancets [TRUEplus Lancets] 33 gauge misc See Rx Instructions .Route Qty: 100 3RF Rx Instructions: As directed (DME) pen needle, diabetic [Easy Comfort Pen [place]] 31 gauge x 3/16 needle See Rx Instructions .ROUTE .MEDSUPPLY Qty: 50 4RF Rx Instructions: As directed potassium chloride 20 mEq tablet extended release 20 meq PO DAILY 90 Days Qty: 90 0RF atorvastatin [Lipitor] 20 mg tablet 20 mg PO DAILY Qty: 90 2RF omeprazole 20 mg capsule,delayed release(DR/EC) 20 mg PO DAILY 90 Days Qty: 90 0RF lisinopril 5 mg tablet 5 mg PO DAILY 90 Days Qty: 90 0RF metoprolol tartrate 25 mg tablet 25 mg PO BID 90 Days Qty: 180 0RF insulin glargine U-300 conc [Toujeo Max U-300 SoloStar] 300 unit/mL (3 mL) insulin pen 130 unit SQ DAILY 30 Days Qty: 12.999 0RF tamsulosin 0.4 mg capsule 0.4 mg PO HS Qty: 30 3RF amoxicillin 500 mg tablet 500 mg PO TID Qty: 30 0RF metformin 1,000 mg tablet 1,000 mg PO BID albuterol sulfate 90 mcg/actuation HFA aerosol inhaler 2 puff PO Q6HP PRN (Reason: Shortness Of Breath Or Wheezing) loratadine 10 mg tablet 10 mg PO DAILY gabapentin 800 mg tablet 800 mg PO QID Patient Discharge Instructions Patient Instructions: DI for Surgical Site Infection, DI for Laparoscopic Cholecystectomy Print Language: A[place]i Providers Primary Care Provider: Silvio Mccain Admit Provider: Horacio Molina Attending Provider: Horacio Molina
[2025-10-31 12:10] LABS: POC Glucose,Bedside 314 gm/dL (70-110)
--- NOTE | 2025-10-31 12:44 | EXP.MED.FU ---
Subjective *Date: 10/31/25 *Time: 13:03 Interval history: Patient did well overnight. No flatus or bowel movement but began having flatus after rounds. Tolerated lunch. Agree with surgery's plan for discharge. Stable on room air. Exam Data for Last 24 hours Vital signs and Labs for Last 24 Hours: Temp Pulse Resp BP Pulse Ox O2 Del Method O2 Flow Rate 97.9 F 69 18 114/59 L 100 Room Air 1 10/31/25 11:31 10/31/25 11:31 10/31/25 11:31 10/31/25 11:31 10/31/25 11:31 10/31/25 11:31 10/30/25 13:52 Laboratory Results - last 24 hr 10/30/25 10:18: POC Glucose 54 L 10/30/25 11:08: POC Glucose 79 10/30/25 13:05: POC Glucose 84 10/30/25 17:27: POC Glucose 198 H 10/30/25 18:00: WBC 7.4, RBC 4.05 L, Hgb 10.9 L, Hct 35.3 L, MCV 87.2, MCH 26.9 L, MCHC 30.9 L, RDW 15.0, Plt Count 110 L, MPV 10.0, Neut % (Auto) 91.7 H, Lymph % (Auto) 4.9 L, [place] % (Auto) 2.7, Eos % (Auto) 0.1, Baso % (Auto) 0.1, Neut # (Auto) 6.8, Lymph # (Auto) 0.4 L, [place] # (Auto) 0.2, Eos # (Auto) 0.0, Baso # (Auto) 0.0, Total Counted 100, Neutrophils % (Manual) 94 H, Lymphocytes % (Manual) 5 L, Monocytes % (Manual) 1 L, Platelet Estimate Normal, Giant Platelets 1+, Polychromasia 1+, Poikilocytosis 1+, Anisocytosis 1+, Microcytosis 1+, Macrocytosis 1+, Target Cells 1+, Tear Drop Cells 1+, Ovalocytes 1+, [place] Cells 1+ 10/30/25 20:04: POC Glucose 322 H* 10/31/25 05:57: POC Glucose 237 H 10/31/25 05:58: WBC 7.9, RBC 3.65 L, Hgb 9.7 L D, Hct 31.7 L, MCV 86.8, MCH 25.5 L, MCHC 29.3 L, RDW 15.1, Plt Count 112 L, MPV 10.3, Neut % (Auto) 81.5 H, Lymph % (Auto) 9.1 L, [place] % (Auto) 8.6, Eos % (Auto) 0.1, Baso % (Auto) 0.3, Neut # (Auto) 6.5, Lymph # (Auto) 0.7, [place] # (Auto) 0.7, Eos # (Auto) 0.0, Baso # (Auto) 0.0, Sodium 135 L, Potassium 5.6 H, Chloride 103, Carbon Dioxide 23, Anion Gap 14.6, BUN 25 H, Creatinine 1.30 H, Estimated Creat Clear 62, Estimated GFR 54 L, Est GFR ( Amer) 66, Glucose 226 H, Calcium 8.2 L, Total Bilirubin 0.4, AST 47, ALT 31, Alkaline Phosphatase 119, Total Protein 6.6, Albumin 3.4 L, Globulin 3.2, Albumin/Globulin Ratio 1.1 10/31/25 10:57: Sodium 131 L, Potassium 5.3 H, Chloride 99, Carbon Dioxide 24, Anion Gap 13.3, BUN 24 H, Creatinine 1.10, Estimated Creat Clear 73, Estimated GFR 66, Est GFR ( Amer) 80 D, Glucose 299 H D, Calcium 8.5 10/31/25 11:10: POC Glucose 314 H* I & O for Last 24 hours: Intake & Output 10/28/25 10/29/25 10/30/25 10/31/25 23:59 23:59 23:59 23:59 Intake Total 1462 / 1762 1000 / 1000 Output Total 600 / 600 250 / 250 Balance 862 / 1162 750 / 750 Weight 82.554 kg 83.96 kg Constitutional Constitutional: no acute distress and cooperative *Routine HEENT Exam Head: Present normocephalic Eye: Present EOMI ENT: Present mucous membranes moist *Routine Neck Exam Neck: Present supple and full ROM; Absent JVD Routine Chest/Breast/Axilla Exam Comments: Well-healed midline scar *Routine Respiratory Exam Respiratory: Present CTA bilaterally, able to speak in complete sentences and symmetric chest movement; Absent respiratory distress or crackles *Routine Cardiovascular Exam Cardiovascular: Present RRR; Absent murmur *Routine Abdominal Exam Abdominal: Present soft, normoactive bowel sounds, tenderness (Tender over surgical sites/trocar insertion sites.) and hernia; Absent distended *Routine Rectal Exam Patient deferred: visual exam *Routine Exam Patient deferred: penile exam *Routine Extremities Exam Extremities: Present full ROM; Absent edema *Routine Skin Exam Skin: Present intact and dry; Absent rash *Routine Neurological Exam Neurological: Present alert, oriented X3 and normal speech Assessment and Plan *Assessment and plan (1) Hypertension: Status: Acute Qualifiers: Hypertension type: primary hypertension Qualified Code(s): I10 - Essential (primary) hypertension Category: Medical Code(s): I10 - Essential (primary) hypertension (2) Cholecystitis: Status: Acute Category: Medical Code(s): K81.9 - Cholecystitis, unspecified (3) IDDM (insulin dependent diabetes mellitus): Status: Acute Category: Medical Code(s): E11.9 - Type 2 diabetes mellitus without complications; 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 (4) Hyperlipidemia: Status: Acute Qualifiers: Hyperlipidemia type: mixed hyperlipidemia Qualified Code(s): E78.2 - Mixed hyperlipidemia Category: Medical Code(s): E78.5 - Hyperlipidemia, unspecified (5) Back pain with radiculopathy: Status: Acute Category: Medical Code(s): M54.10 - Radiculopathy, site unspecified (6) COPD (chronic obstructive pulmonary disease): Status: Acute Qualifiers: COPD type: unspecified COPD Qualified Code(s): J44.9 - Chronic obstructive pulmonary disease, unspecified Category: Medical Code(s): J44.9 - Chronic obstructive pulmonary disease, unspecified (7) Hx of CABG: Status: Acute Category: Surgical Code(s): Z95.1 - Presence of aortocoronary bypass graft (8) Choledocholithiasis: Status: Chronic Category: Medical Code(s): K80.50 - Calculus of bile duct without cholangitis or cholecystitis without obstruction (9) Status post cholecystectomy: Status: Acute Category: Surgical Code(s): Z90.49 - Acquired absence of other specified parts of digestive tract Plan Mr. Eaton is a 70-year-old male who presented for elective cholecystectomy. Patient was admitted in June with acute pancreatitis secondary to cholecystitis/choledocholithiasis. He has been following with surgery as an outpatient. Brought in today for elective cholecystectomy. Tolerated procedure well however had bleeding in gallbladder bed due to nodular appearing liver consistent with cirrhosis. Discussed case with surgeon, planning to admit overnight for observation. Consulting medicine for medical management of patient's comorbidities and assistance with care. Patient stable on room air. Sitting at bedside. Tolerating sandwich. Has some pain at surgical sites. In no acute distress. Problems addressed as follows: Status post cholecystectomy due to cholelithiasis and history of gallstone pancreatitis - Tolerated procedure well. Tolerating regular diet. Passing gas. Defer discharge plan to surgery, agree with patient stability at this time however. - White count normal 7.9, hemoglobin 9.7. Slight drop from admission. Suspect secondary to surgery and intraoperative blood loss. No active signs of bleeding. Potassium 5.3 on repeat labs, down from 5.6. Kidney function normal with BUN 24, creatinine 1.1. Improved from admission. #Diabetes mellitus, insulin-dependent ? A1c on 10/17 of 7.6. Fairly well-controlled. Resume home regimen at discharge. #Hypertension: Continue lisinopril 5 mg daily and metoprolol 25 mg twice daily. Resume Lasix after discharge #Hyperlipidemia: Holding Lipitor due to surgery, resume at discharge #Diabetic neuropathy: Continue gabapentin 800 mg 4 times daily for pain #COPD: DuoNebs every 6 hours as needed. #BPH: Continue tamsulosin 0.4 mg nightly Full code Regular diet Thank you for the opportunity to consult on this patient. Agree with surgical plan for discharge home. Close follow-up with PCP to monitor bowel function. Medicine to sign off at this time.
--- NOTE | 2025-11-01 09:58 | SW/DCPLANNER ---
Spoke with patient on the phone. Patient stated that he is doing well and just a little sore. Patient stated that he is aware of his upcoming appointments. Patient stated that he was not prescribed any new medicine. Patient stated that he has no concerns or questions at this time. Dai Suggs
== END 2025-10-31 13:45 | disposition home or self-care (01) ==
LOC: 2ND 13:48
PROVIDERS: Admitting Provider Surgery; PCP Family Medicine; Visit Provider Surgery
PROC: 0FT44ZZ Resection of Gallbladder, Percutaneous Endoscopic Approach (ICD-10-PCS; CPT 47562; principal; 2025-10-30 11:45)
DX: K85.10 Biliary acute pancreatitis without necrosis or infection (principal); I10 Essential (primary) hypertension; Z79.4 Long term (current) use of insulin; E78.2 Mixed hyperlipidemia; M54.10 Radiculopathy, site unspecified; J44.9 Chronic obstructive pulmonary disease, unspecified; Z95.1 Presence of aortocoronary bypass graft; Z90.49 Acquired absence of other specified parts of digestive tract; E11.40 Type 2 diabetes mellitus with diabetic neuropathy, unspecified; Z89.411 Acquired absence of right great toe; Z79.84 Long term (current) use of oral hypoglycemic drugs; Z79.899 Other long term (current) drug therapy; I25.10 Atherosclerotic heart disease of native coronary artery without angina pectoris; K80.40 Calculus of bile duct with cholecystitis, unspecified, without obstruction; Z87.891 Personal history of nicotine dependence
CPT/HCPCS: 47562; 36415; 80048; 80053; 82962; 85007; 85025; 85027; 96374; G0378; J0690; J1171; J2003; J2371; J2405; J2704; J2795; J3010; J7120